=== PATIENT | male | born 1940 | race Caucasian/White ===

== ENCOUNTER → 2016-05-12 | Outpatient (CLI) | payer MEDICARE ==
[~2016-05-12] MED LIST: ASPI81TA28 PO; CHOL1000 PO; CHOL100010 PO; CLOP1TAB15 PO; COEN90TA PO; FURO-85 PO; LISI10TA PO; METO25TA56 PO; MULT-506 PO; PRENTAB26 PO; PRLSR20 PO; ROSU40TA PO; VANC5CAP PO
[2016-05-12 12:45] LABS: HEMATOCRIT 45.1 % (42-52); MEAN CELL VOLUME 95.1 fL (80-100); MEAN CORPUSCULAR HEMOGLOBIN 31.9 pg (25-34); MEAN CORPUSCULAR HGB CONC 33.5 g/dl (32-36); MEAN PLATELET VOLUME 9.6 fL (7.4-10.4); PLATELET COUNT 206 K/uL (130-400); RED BLOOD COUNT 4.74 M/uL (4.7-6.1); WHITE BLOOD COUNT 7.83 K/uL (4.8-10.8)
[2016-05-12 12:59] LABS: BLOOD UREA NITROGEN 36 mg/dl (7-18); BUN/CREATININE RATIO 13.3 (10-20); CALCIUM 9.8 mg/dl (8.5-10.1); CARBON DIOXIDE 31 mmol/L (21-32); CHLORIDE 105 mmol/L (98-107); GLUCOSE 97 mg/dl (70-99); PHOSPHORUS 3.2 mg/dl (2.5-4.9); POTASSIUM 5.4 mmol/L (3.5-5.1); SODIUM 141 mmol/L (136-145)
[2016-05-12 13:10] LABS: URINE PROTIEN/CREAT RATIO 5.5 (0-0.2); URINE TOTAL PROTEIN 207.4 mg/dl (0-11.9)
[2016-05-12 13:31] LABS: URINE APPEARANCE CLEAR (CLEAR); URINE BILIRUBIN NEG (NEG); URINE COLOR YELLOW; URINE EPITHELIAL CELL AUTO 0-5 /lpf (0-5); URINE NITRITE NEG (NEG); URINE PH 7.5 (4.5-7.5); URINE SPECIFIC GRAVITY 1.011 (1.000-1.030); UROBILINOGEN NEG (NEG)
[2016-05-12 13:45] LABS: MANUAL MICROSCOPIC REQUIRED? NO; REVIEW REQ? NO; SULFASALICYLIC ACID POS (NEG)
== END | disposition home or self-care (01) ==
LOC: C.LABBFT 10:56
PROVIDERS: ATTEND Internal Medicine Nephrology
DX: I12.9 Hypertensive chronic kidney disease with stage 1 through stage 4 chronic kidney disease, or unspecified chronic kidney disease (principal); N18.3 Chronic kidney disease, stage 3 (moderate); N25.81 Secondary hyperparathyroidism of renal origin; R80.9 Proteinuria, unspecified; A04.7 Enterocolitis due to Clostridium difficile

== ENCOUNTER → 2016-07-15 | Outpatient (CLI) | payer MEDICARE ==
[~2016-07-15] MED LIST changes: +CMD2 PO; +CRDCD180 PO; +LCTX PO; +LPR25 PO; +OMEP20CA9 PO; +PLV75 PO; +ROSU40TA18 PO
[2016-07-15 17:34] LABS: HEMATOCRIT 45.9 % (42-52); MEAN CELL VOLUME 94.6 fL (80-100); MEAN CORPUSCULAR HEMOGLOBIN 31.1 pg (25-34); MEAN CORPUSCULAR HGB CONC 32.9 g/dl (32-36); MEAN PLATELET VOLUME 9.6 fL (7.4-10.4); PLATELET COUNT 198 K/uL (130-400); RED BLOOD COUNT 4.85 M/uL (4.7-6.1); WHITE BLOOD COUNT 6.91 K/uL (4.8-10.8)
[2016-07-15 17:46] LABS: URINE APPEARANCE CLEAR (CLEAR); URINE BILIRUBIN NEG (NEG); URINE COLOR YELLOW; URINE NITRITE NEG (NEG); URINE PH 6.5 (4.5-7.5); URINE SPECIFIC GRAVITY 1.014 (1.000-1.030); UROBILINOGEN NEG (NEG)
[2016-07-15 18:00] LABS: ALT/SGPT 24 U/L (12-78); BLOOD UREA NITROGEN 31 mg/dl (7-18); CALCIUM 9.2 mg/dl (8.5-10.1); CARBON DIOXIDE 32 mmol/L (21-32); CHLORIDE 107 mmol/L (98-107); GLUCOSE 115 mg/dl (70-99); POTASSIUM 3.9 mmol/L (3.5-5.1); SODIUM 143 mmol/L (136-145)
[2016-07-15 18:02] LABS: URINE PROTIEN/CREAT RATIO 4.1 (0-0.2)
[2016-07-15 18:03] LABS: ALB/GLOB RATIO 0.8 (0.9-2); ALKALINE PHOSPHATASE 62 U/L (45-117); AST/SGOT 19 U/L (15-37)
[2016-07-15 18:07] LABS: MANUAL MICROSCOPIC REQUIRED? NO; REVIEW REQ? NO
== END | disposition home or self-care (01) ==
LOC: C.LABBFT 11:29
PROVIDERS: ATTEND Internal Medicine Nephrology
DX: I10 Essential (primary) hypertension (principal); N25.81 Secondary hyperparathyroidism of renal origin; R80.9 Proteinuria, unspecified; N18.4 Chronic kidney disease, stage 4 (severe)

== ENCOUNTER → 2016-09-17 | Outpatient (CLI) | payer MEDICARE ==
[~2016-09-17] MED LIST changes: -CHOL100010 PO; -LISI10TA PO; -PRENTAB26 PO
[2016-09-17 17:45] LABS: HEMATOCRIT 43.4 % (42-52); MEAN CELL VOLUME 97.5 fL (80-100); MEAN CORPUSCULAR HEMOGLOBIN 31.7 pg (25-34); MEAN CORPUSCULAR HGB CONC 32.5 g/dl (32-36); MEAN PLATELET VOLUME 9.4 fL (7.4-10.4); PLATELET COUNT 218 K/uL (130-400); RED BLOOD COUNT 4.45 M/uL (4.7-6.1); WHITE BLOOD COUNT 7.88 K/uL (4.8-10.8)
[2016-09-17 18:11] LABS: ALT/SGPT 21 U/L (12-78); AST/SGOT 16 U/L (15-37); BLOOD UREA NITROGEN 33 mg/dl (7-18); BUN/CREATININE RATIO 12.3 (10-20); CALCIUM 9.5 mg/dl (8.5-10.1); CARBON DIOXIDE 29 mmol/L (21-32); CHLORIDE 107 mmol/L (98-107); GLUCOSE 102 mg/dl (70-99); POTASSIUM 4.1 mmol/L (3.5-5.1); SODIUM 142 mmol/L (136-145)
[2016-09-17 18:13] LABS: ALB/GLOB RATIO 0.9 (0.9-2); ALKALINE PHOSPHATASE 59 U/L (45-117)
== END | disposition home or self-care (01) ==
LOC: C.LABBFT 10:32
PROVIDERS: ATTEND Internal Medicine Nephrology
DX: R31.29 Other microscopic hematuria (principal); R80.9 Proteinuria, unspecified; N25.81 Secondary hyperparathyroidism of renal origin; I12.9 Hypertensive chronic kidney disease with stage 1 through stage 4 chronic kidney disease, or unspecified chronic kidney disease; N18.4 Chronic kidney disease, stage 4 (severe)

== ENCOUNTER → 2016-11-23 | Outpatient (CLI) | payer MEDICARE ==
[~2016-11-23] MED LIST changes: -COEN90TA PO
--- NOTE | 2016-11-23 16:15 | DIAGNOSTIC IMAGING REPORT ---
R WRIST MIN 3 VIEWS ROUTINE CLINICAL HISTORY: Right wrist pain. Edema. COMPARISON: None FINDINGS: Extensive vascular calcification is noted. No carpal bone fracture is identified. There is a lucency within the radial styloid. This could reflect a nondisplaced fracture or vascular channel. No additional fractures are identified. There is mild to moderate osteoarthritis of the triscaphe joint and right first carpometacarpal joint. IMPRESSION: 1. Lucency within the radial styloid which could reflect an acute nondisplaced fracture or vascular channel. This could be correlated with point tenderness and trauma history. 2. Extensive vascular calcification. 3. Mild to moderate osteoarthritis of the triscaphe and right first carpometacarpal joints. Electronically signed by: Jose Shrestha M.D. 11/23/2016 4:14 PM Dictated Date/Time: 11/23/2016 4:11 PM
--- NOTE | 2016-11-23 17:14 | DIAGNOSTIC IMAGING REPORT ---
DOPPLER ULTRASOUND RIGHT UPPER EXTREMITY DIALYSIS ACCESS CLINICAL HISTORY: Fall. COMPARISON STUDY: No priors. FINDINGS: Real-time, grayscale, color Doppler sonography of the right forearm is performed to assess a hemodialysis fistula. The fistula is present, likely from the cephalic vein to the ulnar artery. The fistula is patent. Velocities within the fistula measure up to 310 cm near the arterial anastomosis. There is an indeterminant hypoechoic region seen near the arterial anastomosis which measures 4.5 x 1.0 x 2.4 cm. IMPRESSION: 1. A dialysis fistula is present in the right forearm as above. The fistula is patent. 2. There is indeterminant hypoechoic region seen near the arterial anastomosis as above. This may represent a small hematoma, edema, or less likely a collection. Clinical correlation will be essential. Dictated: 11/23/2016 4:43 PM Transcribed: 11/23/2016 5:14 PM Maru Electronically signed by: Ronen Teixeira M.D. 11/23/2016 5:27 PM Dictated Date/Time: 11/23/2016 4:43 PM
== END | disposition home or self-care (01) ==
LOC: C.ULTR 15:28
PROVIDERS: ATTEND Physician Assistant
DX: M79.641 Pain in right hand (principal); M25.531 Pain in right wrist; R60.0 Localized edema; Z91.81 History of falling; M19.031 Primary osteoarthritis, right wrist; M25.831 Other specified joint disorders, right wrist

== ENCOUNTER 2016-11-26 20:18 | Inpatient (IN) | payer MEDICARE, OTHER ==
[~2016-11-26] VITALS: Ht 180.3 cm; Wt 107.0 kg
[~2016-11-26 20:18] MED LIST changes: -CMD2 PO; -CRDCD180 PO; -LCTX PO; -LPR25 PO; -OMEP20CA9 PO; -PLV75 PO; -ROSU40TA18 PO
[2016-11-26] MEDS ORDERED: SODIUM CHLORIDE 0.9% 1000ML 1,000 ML IV SCH (20:21)
--- NOTE | 2016-11-26 20:37 | DIAGNOSTIC IMAGING REPORT ---
HEAD WITHOUT CONTRAST (CT) CLINICAL HISTORY: 76 years-old Male presenting with Stroke. TECHNIQUE: Multidetector CT imaging of the head was performed without the use of intravenous contrast. IV contrast: None. A dose lowering technique was used consistent with the principles of ALARA (as low as reasonably achievable). COMPARISON: None. CT DOSE (mGy.cm): The estimated cumulative dose is 537.48 mGy.cm. FINDINGS: Satellite Instruction Facilitator topogram: Unremarkable. Proportional ventricular and sulcal prominence, likely age-related parenchymal volume loss. Evidence of chronic infarcts in the right cerebellar hemisphere, paramedian left occipital lobe, and more focally in a limited portion of the right occipital lobe. Old lacunar infarct in the left basal ganglia. No mass effect or midline shift. No hemorrhage or acute territorial infarct. No extra-axial fluid collection. Paranasal sinuses and mastoid air cells clear. Calvarium intact. IMPRESSION: 1. No acute intracranial pathology. 2. 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 Electronically signed by: Luis Lockhart M.D. 11/26/2016 8:35 PM Dictated Date/Time: 11/26/2016 8:32 PM
[2016-11-26] MEDS ORDERED: SET 2260-0500 IV ONE (20:45)
[2016-11-26] MEDS ORDERED: LABETALOL HCL IV 5 MG/ML 20ML IV ONE ×2 (20:45→21:15)
[2016-11-26] MEDS ORDERED: ALTEPLASE, RECOMBINANT INJ 9 MG in SYRINGE 0 ML IV ONE (20:45)
[2016-11-26 20:51] LABS: BASO % 0.3 %; BASO ABS # 0.02 K/uL (0-0.2); COMPLETE YES; EOS % 0.5 %; HEMATOCRIT 43.4 % (42-52); IG% 0.3 %; LYMPH % 23.9 %; LYMPH ABS # 1.83 K/uL (1.2-3.4); MEAN CELL VOLUME 93.9 fL (80-100); MEAN CORPUSCULAR HEMOGLOBIN 32.5 pg (25-34); MEAN CORPUSCULAR HGB CONC 34.6 g/dl (32-36); MEAN PLATELET VOLUME 9.3 fL (7.4-10.4); PLATELET COUNT 210 K/uL (130-400); RED BLOOD COUNT 4.62 M/uL (4.7-6.1); WHITE BLOOD COUNT 7.65 K/uL (4.8-10.8)
[2016-11-26 20:55] LABS: PARTIAL THROMBOPLASTIN RATIO 1.1; PROTHROMBIN TIME (PATIENT) 11.2 SECONDS (9.0-12.0)
[2016-11-26] MEDS ORDERED: ALTEPLASE, RECOMBINANT INJ 81 MG in EMPTY BAG 0 ML IV ONE (21:00)
[2016-11-26 21:04] LABS: ISTAT CREATININE 4.2 mg/dl (0.6-1.3); ISTAT IONIZED CALCIUM 1.12 mmol/l (1.12-1.32)
[2016-11-26 21:10] LABS: BUN/CREATININE RATIO 12.5 (10-20); CALCIUM 9.2 mg/dl (8.5-10.1); CREATININE 4.4 mg/dl (0.60-1.40); POTASSIUM 3.4 mmol/L (3.5-5.1)
--- NOTE | 2016-11-26 21:13 | DIAGNOSTIC IMAGING REPORT ---
CHEST ONE VIEW PORTABLE CLINICAL HISTORY: 76 years-old Male presenting with Stroke. TECHNIQUE: Portable upright AP view of the chest was obtained. COMPARISON: 05/04/2015. FINDINGS: Interval removal of the right subclavian central line. Median sternotomy wires intact. Cardiac silhouette enlarged, unchanged. Atherosclerosis of aortic arch. Mild diffuse added density in the left lung is likely due to underpenetration and overlying soft tissue. No convincing evidence of a focal infiltrate. No large effusion or pneumothorax. Osseous structures normal. Upper abdomen normal. IMPRESSION: 1. Cardiomegaly without evidence of acute cardiopulmonary disease. Electronically signed by: Luis Lockhart M.D. 11/26/2016 9:11 PM Dictated Date/Time: 11/26/2016 9:10 PM
[2016-11-26] MEDS ORDERED: LPR25 PO (21:31)
[2016-11-26] MEDS ORDERED: ROSU40TA18 PO (21:33)
[2016-11-26] MEDS ORDERED: OMEP20CA9 PO (21:33)
[2016-11-26] MEDS ORDERED: VANC5CAP PO (21:35)
[2016-11-26] MEDS ORDERED: PLV75 PO (21:35)
[2016-11-26] MEDS ORDERED: LCTX PO (21:37)
--- NOTE | 2016-11-26 22:12 | EMERGENCY ROOM VISIT NOTE ---
History Report prepared by Raeibcecy: Nelida Landry Under the Supervision of: Dr. Mateo Styles M.D. First contact with patient: 20:19 Chief Complaint: STROKE SYMPTOMS Stated Complaint: stroke alert History of Present Illness The patient is a 76 year old male who presents to the Emergency Room with complaints of possible stroke symptoms that started approximately 1 hour prior to arrival. He was brought to the ED via EMS. EMS reports his last known well time is 1929 this evening. His states they were eating and dinner and watching TV when he suddenly fell. He told her his legs gave out and sat down in a chair. He then "just stared at her", so his asked him if he knew who she was, and he was unable to answer her. She does not believe he hit his head, but he did display right sided weakness as well as the aphasia. EMS reports she asked the patient to squeeze her hand in the field if he was able too, and he did, but he could not speak to her. She reports his aphasia seems to "come and go". The patient does take Aspirin and Plavix for a history of atrial fibrillation. He has a prior history of TIA's. Patient denies headache, chest pain, difficulty breathing, nausea, vomiting, abdominal pain, fevers or chills. Source of History: spouse/significant other (), EMS History Limited By: aphasia Onset: 1929 today Position: other (global) Timing: intermittent Associated Symptoms: + weakness (right sided weakness), No LOC Review of Systems See HPI for pertinent positives and negatives. A total of ten systems were reviewed and were otherwise negative. Past Medical & Surgical Medical Problems: (1) Atrial fibrillation (2) CAD (coronary artery disease) (3) Chronic diastolic (congestive) heart failure (4) CKD (chronic kidney disease), stage III (5) Dyslipidemia (6) GERD (gastroesophageal reflux disease) (7) HTN (hypertension) (8) Osteoarthritis (9) PVD (peripheral vascular disease) (10) TIA (transient ischemic attack) Surgical Problems: (1) H/O vascular surgery (2) History of CEA (carotid endarterectomy) (3) S/P ablation of atrial fibrillation (4) S/P CABG x 3 Family History Diabetes mellitus FH: heart disease Social History Smoking Status: Never Smoker Drug Use: none Marital Status: Housing Status: lives with family Occupation Status: retired Current/Historical Medications Scheduled Aspirin (Aspirin Ec), 161 MG PO HS Cholecalciferol (Vitamin D3), 1,000 INTER.UNIT PO QAM Clopidogrel Bisulfate (Clopidogrel), 75 MG PO QAM Furosemide (Lasix), 20 MG PO QAM Lactobacillus Acidophilus (Lactinex), 1 TAB PO TIDM Metoprolol Tartrate (Lopressor), 25 MG PO BID Multivitamin (Multivitamin), 1 TAB PO QAM Omeprazole (Prilosec), 20 MG PO QAM Rosuvastatin Calcium (Rosuvastatin Calcium), 40 MG PO QPM Vancomycin Hcl (Vancomycin), 125 MG PO QAM Allergies Coded Allergies: No Known Allergies (Verified , 09/20/16) Physical Exam Vital Signs Date Time Temp Pulse Resp B/P (MAP) Pulse Ox O2 Delivery O2 Flow Rate FiO2 11/26/16 21:31 85 11/26/16 21:06 92 19 162/111 97 11/26/16 21:01 88 21 197/99 98 11/26/16 21:00 181/133 11/26/16 20:58 93 20 98 11/26/16 20:56 191/81 11/26/16 20:35 93 Room Air 11/26/16 20:29 36.9 108 16 184/96 93 Room Air Physical Exam GENERAL: Awake, alert, well-appearing, in no distress HENT: Normocephalic, atraumatic. Oropharynx unremarkable. EYES: Normal conjunctiva. Sclera non-icteric. NECK: Supple. No nuchal rigidity. FROM. No JVD. RESPIRATORY: Clear to auscultation. CARDIAC: Regular rate, normal rhythm. Extremities warm and well perfused. Pulses equal. ABDOMEN: Soft, non-distended. No tenderness to palpation. No rebound or guarding. No masses. RECTAL: Deferred. MUSCULOSKELETAL: Chest examination reveals no tenderness. The back is symmetrical on inspection without obvious abnormality. There is no CVA tenderness to palpation. No joint edema. LOWER EXTREMITIES: Calves are equal size bilaterally and non-tender. No edema. No discoloration. NEURO: Weakness and drift in the right arm, 4/5 strength in right arm. 3/5 strength in right leg. 5/5 strength in left arm and left leg. Normal sensorium. No sensory deficits. SKIN: No rash or jaundice noted. Medical Decision & Procedures ER Provider Diagnostic Interpretation: Radiology results as stated below per my review and radiologist interpretation: HEAD WITHOUT CONTRAST (CT) CLINICAL HISTORY: 76 years-old Male presenting with Stroke. TECHNIQUE: Multidetector CT imaging of the head was performed without the use of intravenous contrast. IV contrast: None. A dose lowering technique was used consistent with the principles of ALARA (as low as reasonably achievable). COMPARISON: None. CT DOSE (mGy.cm): The estimated cumulative dose is 537.48 mGy.cm. FINDINGS: Field Marketing Specialist topogram: Unremarkable. Proportional ventricular and sulcal prominence, likely age-related parenchymal volume loss. Evidence of chronic infarcts in the right cerebellar hemisphere, paramedian left occipital lobe, and more focally in a limited portion of the right occipital lobe. Old lacunar infarct in the left basal ganglia. No mass effect or midline shift. No hemorrhage or acute territorial infarct. No extra-axial fluid collection. Paranasal sinuses and mastoid air cells clear. Calvarium intact. IMPRESSION: 1. No acute intracranial pathology. 2. 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 Electronically signed by: Luis Lockhart M.D. 11/26/2016 8:35 PM CHEST ONE VIEW PORTABLE CLINICAL HISTORY: 76 years-old Male presenting with Stroke. TECHNIQUE: Portable upright AP view of the chest was obtained. COMPARISON: 05/04/2015. FINDINGS: Interval removal of the right subclavian central line. Median sternotomy wires intact. Cardiac silhouette enlarged, unchanged. Atherosclerosis of aortic arch. Mild diffuse added density in the left lung is likely due to underpenetration and overlying soft tissue. No convincing evidence of a focal infiltrate. No large effusion or pneumothorax. Osseous structures normal. Upper abdomen normal. IMPRESSION: 1. Cardiomegaly without evidence of acute cardiopulmonary disease. Electronically signed by: Luis Lockhart M.D. 11/26/2016 9:11 PM Laboratory Results 11/26/16 20:00 Red Blood Count 4.62, Mean Corpuscular Volume 93.9, Mean Corpuscular Hemoglobin 32.5, Mean Corpuscular Hemoglobin Concent 34.6, Mean Platelet Volume 9.3, Neutrophils (%) (Auto) 63.0, Lymphocytes (%) (Auto) 23.9, Monocytes (%) (Auto) 12.0, Eosinophils (%) (Auto) 0.5, Basophils (%) (Auto) 0.3, Neutrophils # (Auto ) 4.82, Lymphocytes # (Auto) 1.83, Monocytes # (Auto) 0.92, Eosinophils # (Auto ) 0.04, Basophils # (Auto) 0.02 11/26/16 20:00 Test 11/26/16 20:00 11/26/16 20:21 11/26/16 20:51 White Blood Count 7.65 K/uL (4.8-10.8) Red Blood Count 4.62 M/uL (4.7-6.1) Hemoglobin 15.0 g/dL (14.0-18.0) Hematocrit 43.4 % (42-52) Mean Corpuscular Volume 93.9 fL (80-100) Mean Corpuscular Hemoglobin 32.5 pg (25-34) Mean Corpuscular Hemoglobin Concent 34.6 g/dl (32-36) Platelet Count 210 K/uL (130-400) Mean Platelet Volume 9.3 fL (7.4-10.4) Neutrophils (%) (Auto) 63.0 % Lymphocytes (%) (Auto) 23.9 % Monocytes (%) (Auto) 12.0 % Eosinophils (%) (Auto) 0.5 % Basophils (%) (Auto) 0.3 % Neutrophils # (Auto) 4.82 K/uL (1.4-6.5) Lymphocytes # (Auto) 1.83 K/uL (1.2-3.4) Monocytes # (Auto) 0.92 K/uL (0.11-0.59) Eosinophils # (Auto) 0.04 K/uL (0-0.5) Basophils # (Auto) 0.02 K/uL (0-0.2) RDW Standard Deviation 47.2 fL (36.4-46.3) RDW Coefficient of Variation 13.7 % (11.5-14.5) Immature Granulocyte % (Auto) 0.3 % Immature Granulocyte # (Auto) 0.02 K/uL (0.00-0.02) Prothrombin Time 11.2 SECONDS (9.0-12.0) Prothromb Time International Ratio 1.0 (0.9-1.1) Activated Partial Thromboplast Time 29.1 SECONDS (21.0-31.0) Partial Thromboplastin Ratio 1.1 Est Creatinine Clear Calc Drug Dose 18.8 ml/min Estimated GFR () 14.1 Estimated GFR (Non- 12.1 BUN/Creatinine Ratio 12.5 (10-20) Calcium Level 9.2 mg/dl (8.5-10.1) Total Creatine Kinase 97 U/L (39-308) Creatine Kinase MB 3.9 ng/ml (0.5-3.6) Creatine Kinase MB Ratio 4.0 (0-3.0) Troponin I 2.240 ng/ml (0-0.045) Bedside Hemoglobin 15.0 g/dl (14.0-18.0) Bedside Hematocrit 44 % (42-52) Bedside Sodium 142 mEq/L (135-144) Bedside Potassium 3.3 mEq/L (3.3-5.0) Bedside Chloride 104 mEq/L (101-112) Bedside Total CO2 28 mEq/l (24-31) Anion Gap 15.0 mmol/L (16-25) Bedside Blood Urea Nitrogen 54 mg/dl (7-18) Bedside Creatinine 4.2 mg/dl (0.6-1.3) Bedside Glucose (other) 99 mg/dl (70-99) Bedside Ionized Calcium (Delfina) 1.12 mmol/l (1.12-1.32) Laboratory results reviewed by me Medications Administered Medications (Trade) Dose Ordered Sig/Maria Guadalupe Route Start Time Stop Time Status Last Admin Dose Admin Sodium Chloride 1,000 ml @ 50 mls/hr Q20H IV 11/26/16 20:21 12/26/16 20:20 11/26/16 20:21 50 MLS/HR Labetalol HCl (Normodyne IV) 5 mg STK-MED ONCE IV 11/26/16 20:45 11/26/16 20:46 DC 11/26/16 21:07 10 MG ECG Indication: weakness Rate (beats per minute): 94 Rhythm: atrial fibrillation Findings: no acute ischemic change, no ectopy ED Course 2020: NSS 1000 ml @ 999 mls/hr IV. 2028: The patient was evaluated in room B1. A complete history and physical exam was performed. 2044: Labetalol 5 mg IV, Alteplase Recombinant 9 mg/Syringe 9 ml @ 9 mls/min IV. 2046: I discussed the patients case with Dr. Randall, [facility]. We have Labetalol at the bedside but his BP is going down. He has no contraindications to TPA. 2058: I reevaluated the patient. He is speaking with Dr. Randall via Tele Stroke. 2099: Alteplase Recombinant 81 mg/Empty Bag 81 ml @ 81 mls/hr IV. 2104: Nursing informed me they are giving the patient Labetalol. 2109: I reevaluated the patient. His symptoms have resolved. Dr. Randall recommends we hold the TPA and it keep it at the bedside. If his symptoms return in under 2 hours, call him back. 2120: [facility] the [facility] The patient will be further evaluated. Medical Decision Triage Nursing notes reviewed. The patient's presentation and history were concerning for strokelike symptoms. A stroke alert was initiated prehospital after active medical command on the patient. The patient arrived to the emergency department. He had improvement of his aphasia in the ambulance but then his expressive aphasia returned. He had right-sided weakness. He was taken emergently to CT imaging. No acute intercranial findings were noted. I notified pharmacy to mix TPA as he is within the therapeutic window. Contraindications were reviewed and the patient has none except his blood pressure is over the upper limits. IV labetalol was ordered. I did consult with [facility]-stroke. The patient was evaluated. During the tele-stroke evaluation his symptoms resolved. Recommendations were given for monitoring blood pressure, keeping the TPA at the bedside for the next 2 hours, and if any symptoms occur after the 2 hour basia to contact tele- stroke again. The patient was reassessed and was doing well. Symptoms were still resolved. [facility] The patient was evaluated in the Emergency Room for further management. The patient 's ECG showed A. fib. No ischemia. His CBC and chemistry panel was unremarkable. INR was normal. The patient's creatinine was elevated. He has a history of renal insufficiency. The patient's troponin was significantly elevated, again he denied any chest pain or chest symptoms. Medication Reconcilliation Current Medication List: was personally reviewed by me Blood Pressure Screening Patient's blood pressure: Elevated blood pressure The patients elevated blood pressure will be further evaluated by the hospital medicine team. Consults Time Called: 2035 Consulting Physician: Dr. Randall, [facility] Returned Call: 2046 I discussed the patients case with Dr. Randall, [facility]. We have Labetalol at the bedside but his BP is going down. He has no contraindications to TPA. Additional Consults: Time Called: 2114 Consulted Physician: Francisca Liriano Hospitalist Returned Call: 2120 Additional Comments: I discussed the patients case with Francisca Liriano Hospitalist. The patient will be further evaluated. Impression Primary Impression: CVA (cerebral vascular accident) Additional Impression: Elevated troponin Scribe Attestation The scribe's documentation has been prepared under my direction and personally reviewed by me in its entirety. I confirm that the note above accurately reflects all work, treatment, procedures, and medical decision making performed by me. Departure Information Dispostion Being Evaluated By Hospitalist Basia Case M.D. (PCP) Patient Instructions My [facility] Problem Qualifiers
[2016-11-26] MEDS ORDERED: NITROGLYCERIN 0.4 MG SL PER TAB CHARGE SL PRN (22:45)
[2016-11-26] MEDS ORDERED: POLYETHYLENE (MIRALAX) 17 GM PACK PO PRN (22:45)
[2016-11-26] MEDS ORDERED: PHARMACIST DISCHARGE MED REC CONSULT PRN (22:45)
[2016-11-26] MEDS ORDERED: ONDANSETRON INJ 2 MG/ML 2 ML VIAL IV PRN (22:45)
[2016-11-26] MEDS ORDERED: MoRPHine SULFATE 2 MG/ML CARP IV PRN (22:45)
[2016-11-26] MEDS ORDERED: ACETAMINOPHEN 325 MG TAB PO PRN (22:45)
[2016-11-26] MEDS ORDERED: ASPIRIN 325 MG ECTAB PO STA (22:59)
[2016-11-26] MEDS ORDERED: ROSUVASTATIN CALCIUM 20 MG TAB PO SCH (23:00)
[2016-11-26] MEDS ORDERED: METOPROLOL TARTRATE 25 MG TAB PO SCH (23:00)
--- NOTE | 2016-11-26 23:00 | History and Physical ---
History & Physical Date & Time of Service: Nov 26, 2016 at 22:53 Chief Complaint: stroke alert Primary Care Physician: Lamin Malcolm M.D. History of Present Illness Source: patient, family, clinic records, hospital records 76 yo nonsmoker with CAD and PVD s/p CABG on ASA and Plavix who presents with acute stroke symptoms that began at 1930 this evening. Specifically, he reports feeling R leg and the R arm numbness and weakness which caused him to collapse into a chair. He later developed some expressive aphasia. He denies any other symptoms of chest pain, shortness of breath, fevers, chills, dysphagia , headaches, visual changes, nausea, vomiting, diarrhea. 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 He has otherwise been feeling well. He has a h/o smoking for 50 years but quit early last year prior to undergoing multiple peripheral vascular surgeries. He also has chronic, recurrent C-diff and is under the care of an ID specialist and on chronic suppressive vancomycin therapy. He has a h/o MRSA. He has some chronic numbness in his feet from his h/o leg surgeries and PAD. He is s/p bilateral CEA in the past. He currently takes ASA 161 daily, Plavix 75 daily and Crestor 40 daily and is compliant with these. In the ER a stroke alert was called and TPA was mixed but prior to giving it, his symptoms completely resolved. He also was found to have an elevated trop of 2 without acute EKG changes. Past Medical/Surgical History Medical Problems: (1) Atrial fibrillation Status: Chronic (2) CAD (coronary artery disease) Status: Chronic (3) Chronic diastolic (congestive) heart failure Status: Chronic (4) CKD (chronic kidney disease), stage III Status: Chronic (5) Dyslipidemia Status: Chronic (6) GERD (gastroesophageal reflux disease) Status: Chronic (7) HTN (hypertension) Status: Chronic (8) Osteoarthritis Status: Chronic (9) PVD (peripheral vascular disease) Status: Chronic (10) TIA (transient ischemic attack) Status: Chronic Surgical Problems: (1) H/O vascular surgery Permanent Comment: 2000 - right femoral endarterectomy, left femoral stent 04/25/15 - left common femoral endarterectomy, left common deep femoral endarterectomy, left common and external iliac stent and angioplasty, left femoral and popliteal stent and angioplasty Status: Chronic (2) History of CEA (carotid endarterectomy) Permanent Comment: left - 2007, right - 2010 Status: Chronic (3) S/P ablation of atrial fibrillation Status: Chronic (4) S/P CABG x 3 Status: Chronic Family History Diabetes mellitus FH: heart disease Social History Smoking Status: Never Smoker Smokeless Tobacco Use: No Alcohol Use: socially Drug Use: none Marital Status: Housing status: lives with significant other Occupational Status: retired Immunizations History of Influenza Vaccine: Yes History of Tetanus Vaccine?: Yes History of Pneumococcal: Yes History of Hepatitis B Vaccine: No Multi-Drug Resistant Organisms History of MDRO: Yes Type of MDRO: MRSA, other (chronic, recurrent c-diff) Allergies Coded Allergies: No Known Allergies (Verified , 09/20/16) Home Medications Scheduled Aspirin (Aspirin Ec), 161 MG PO HS Cholecalciferol (Vitamin D3), 1,000 INTER.UNIT PO QAM Clopidogrel Bisulfate (Clopidogrel), 75 MG PO QAM Furosemide (Lasix), 20 MG PO QAM Lactobacillus Acidophilus (Lactinex), 1 TAB PO TIDM Metoprolol Tartrate (Lopressor), 25 MG PO BID Multivitamin (Multivitamin), 1 TAB PO QAM Omeprazole (Prilosec), 20 MG PO QAM Rosuvastatin Calcium (Rosuvastatin Calcium), 40 MG PO QPM Vancomycin Hcl (Vancomycin), 125 MG PO QAM Review of Systems At least ten systems reviewed and negative except as indicated in HPI above. Physical Exam Vital Signs Date Time Temp Pulse Resp B/P (MAP) Pulse Ox O2 Delivery O2 Flow Rate FiO2 11/26/16 22:11 75 20 139/88 99 11/26/16 22:06 76 14 170/61 98 11/26/16 22:01 80 19 156/72 99 11/26/16 21:56 78 20 169/61 97 11/26/16 21:51 81 19 170/92 97 11/26/16 21:46 80 22 170/75 98 11/26/16 21:41 84 13 149/81 99 11/26/16 21:36 82 17 184/56 98 11/26/16 21:31 81 18 176/71 98 11/26/16 21:31 85 10/6/17 21:26 85 23 146/90 96 11/26/16 21:21 82 19 176/104 98 11/26/16 21:16 78 21 172/77 96 11/26/16 21:11 79 22 172/89 97 11/26/16 21:06 92 19 162/111 97 11/26/16 21:01 88 21 197/99 98 11/26/16 21:00 181/133 11/26/16 20:58 93 20 98 11/26/16 20:56 191/81 11/26/16 20:35 93 Room Air 11/26/16 20:29 36.9 108 16 184/96 93 Room Air General Appearance: WD/WN, no apparent distress Head: normocephalic, atraumatic Eyes: normal inspection, PERRL, EOMI, sclerae normal ENT: normal ENT inspection, hearing grossly normal, pharynx normal Neck: supple, no adenopathy, no JVD, trachea midline Respiratory/Chest: chest non-tender, lungs clear, normal breath sounds, no respiratory distress, no accessory muscle use Cardiovascular: no edema, no gallop, no JVD, no murmur, normal peripheral pulses, + irregularly irregular Abdomen/GI: normal bowel sounds, non tender, soft Back: normal inspection Extremities/Musculoskelatal: normal inspection, normal capillary refill, + pertinent finding (slight chronic swelling of L foot/ankle-no edema.) 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, no motor/sensory deficits (except chronic numbness in feet bilaterally and to just prox of L ankle ), alert, normal mood/affect, normal reflexes, oriented x 3, + pertinent finding (neg Romberg, normal coordination testing) Skin: normal color, warm/dry, no rash Diagnostics Laboratory Results 11/27/16 03:50 Red Blood Count 4.34, Mean Corpuscular Volume 93.3, Mean Corpuscular Hemoglobin 32.3, Mean Corpuscular Hemoglobin Concent 34.6, Mean Platelet Volume 9.2, Neutrophils (%) (Auto) 69.1, Lymphocytes (%) (Auto) 21.2, Monocytes (%) (Auto) 8.5, Eosinophils (%) (Auto) 1.0, Basophils (%) (Auto) 0.1, Neutrophils # (Auto) 5.39, Lymphocytes # (Auto) 1.65, Monocytes # (Auto) 0.66, Eosinophils # (Auto) 0.08, Basophils # (Auto) 0.01 11/27/16 03:50 Test 11/26/16 20:00 11/26/16 20:43 11/26/16 20:51 11/27/16 03:40 Prothrombin Time 11.2 SECONDS (9.0-12.0) Prothromb Time International Ratio 1.0 (0.9-1.1) Activated Partial Thromboplast Time 29.1 SECONDS (21.0-31.0) Partial Thromboplastin Ratio 1.1 Bedside Glucose 102 mg/dl (70-99) Bedside Hemoglobin 15.0 g/dl (14.0-18.0) Bedside Hematocrit 44 % (42-52) Bedside Sodium 142 mEq/L (135-144) Bedside Potassium 3.3 mEq/L (3.3-5.0) Bedside Chloride 104 mEq/L (101-112) Bedside Total CO2 28 mEq/l (24-31) Bedside Blood Urea Nitrogen 54 mg/dl (7-18) Bedside Creatinine 4.2 mg/dl (0.6-1.3) Bedside Glucose (other) 99 mg/dl (70-99) Bedside Ionized Calcium (Delfina) 1.12 mmol/l (1.12-1.32) Urine Color YELLOW Urine Appearance CLEAR (CLEAR) Urine pH 6.0 (4.5-7.5) Urine Specific [place] 1.013 (1.000-1.030) Urine Protein 2+ (NEG) Urine Glucose (UA) NEG (NEG) Urine Ketones NEG (NEG) Urine Occult Blood 1+ (NEG) Urine Nitrite NEG (NEG) Urine Bilirubin NEG (NEG) Urine Urobilinogen NEG (NEG) Urine Leukocyte Esterase NEG (NEG) Urine WBC (Auto) 1-5 /hpf (0-5) Urine RBC (Auto) 0-4 /hpf (0-4) Urine Hyaline Casts (Auto) 1-5 /lpf (0-5) Urine Epithelial Cells (Auto) 10-20 /lpf (0-5) Urine Bacteria (Auto) NEG (NEG) Test 11/27/16 03:50 White Blood Count 7.80 K/uL (4.8-10.8) Red Blood Count 4.34 M/uL (4.7-6.1) Hemoglobin 14.0 g/dL (14.0-18.0) Hematocrit 40.5 % (42-52) Mean Corpuscular Volume 93.3 fL (80-100) Mean Corpuscular Hemoglobin 32.3 pg (25-34) Mean Corpuscular Hemoglobin Concent 34.6 g/dl (32-36) Platelet Count 185 K/uL (130-400) Mean Platelet Volume 9.2 fL (7.4-10.4) Neutrophils (%) (Auto) 69.1 % Lymphocytes (%) (Auto) 21.2 % Monocytes (%) (Auto) 8.5 % Eosinophils (%) (Auto) 1.0 % Basophils (%) (Auto) 0.1 % Neutrophils # (Auto) 5.39 K/uL (1.4-6.5) Lymphocytes # (Auto) 1.65 K/uL (1.2-3.4) Monocytes # (Auto) 0.66 K/uL (0.11-0.59) Eosinophils # (Auto) 0.08 K/uL (0-0.5) Basophils # (Auto) 0.01 K/uL (0-0.2) RDW Standard Deviation 46.0 fL (36.4-46.3) RDW Coefficient of Variation 13.5 % (11.5-14.5) Immature Granulocyte % (Auto) 0.1 % Immature Granulocyte # (Auto) 0.01 K/uL (0.00-0.02) Anion Gap 10.0 mmol/L (3-11) Est Creatinine Clear Calc Drug Dose 18.5 ml/min Estimated GFR () 14.5 Estimated GFR (Non- 12.5 BUN/Creatinine Ratio 13.6 (10-20) Estimated Average Glucose 111 mg/dl Hemoglobin A1c 5.5 % (4.5-5.6) Calcium Level 8.5 mg/dl (8.5-10.1) Total Creatine Kinase 95 U/L (39-308) Creatine Kinase MB 4.5 ng/ml (0.5-3.6) Creatine Kinase MB Ratio 4.7 (0-3.0) Troponin I 2.160 ng/ml (0-0.045) Triglycerides Level 155 mg/dl (0-150) Cholesterol Level 135 mg/dl (0-200) HDL Cholesterol 38 mg/dl LDL Cholesterol, Calculated 66 mg/dl VLDL Cholesterol, Calculated 31 mg/dl Cholesterol/HDL Ratio 3.6 Date/Time Source Procedure Growth Status 11/27/16 06:02 Nasal MRSA DNA Surveillance Screen Pending Stephanie Batch Results Past 24 Hours Test 11/26/16 20:00 11/26/16 20:21 11/26/16 20:51 Range/Units White Blood Count 7.65 4.8-10.8 K/uL Red Blood Count 4.62 4.7-6.1 M/uL Hemoglobin 15.0 14.0-18.0 g/dL Hematocrit 43.4 42-52 % Mean Corpuscular Volume 93.9 80-100 fL Mean Corpuscular Hemoglobin 32.5 25-34 pg Mean Corpuscular Hemoglobin Concent 34.6 32-36 g/dl Platelet Count 210 130-400 K/uL Mean Platelet Volume 9.3 7.4-10.4 fL Neutrophils (%) (Auto) 63.0 % Lymphocytes (%) (Auto) 23.9 % Monocytes (%) (Auto) 12.0 % Eosinophils (%) (Auto) 0.5 % Basophils (%) (Auto) 0.3 % Neutrophils # (Auto) 4.82 1.4-6.5 K/uL Lymphocytes # (Auto) 1.83 1.2-3.4 K/uL Monocytes # (Auto) 0.92 0.11-0.59 K/uL Eosinophils # (Auto) 0.04 0-0.5 K/uL Basophils # (Auto) 0.02 0-0.2 K/uL RDW Standard Deviation 47.2 36.4-46.3 fL RDW Coefficient of Variation 13.7 11.5-14.5 % Immature Granulocyte % (Auto) 0.3 % Immature Granulocyte # (Auto) 0.02 0.00-0.02 K/uL Prothrombin Time 11.2 9.0-12.0 SECONDS Prothromb Time International Ratio 1.0 0.9-1.1 Activated Partial Thromboplast Time 29.1 21.0-31.0 SECONDS Partial Thromboplastin Ratio 1.1 Sodium Level 141 136-145 mmol/L Potassium Level 3.4 3.5-5.1 mmol/L Chloride Level 105 98-107 mmol/L Carbon Dioxide Level 28 21-32 mmol/L Anion Gap 8.0 15.0 16-25 mmol/L Blood Urea Nitrogen 55 7-18 mg/dl Creatinine 4.40 0.60-1.40 mg/dl Est Creatinine Clear Calc Drug Dose 18.8 ml/min Estimated GFR () 14.1 Estimated GFR (Non- 12.1 BUN/Creatinine Ratio 12.5 10-20 Random Glucose 101 70-99 mg/dl Calcium Level 9.2 8.5-10.1 mg/dl Total Creatine Kinase 97 39-308 U/L Creatine Kinase MB 3.9 0.5-3.6 ng/ml Creatine Kinase MB Ratio 4.0 0-3.0 Troponin I 2.240 0-0.045 ng/ml Bedside Hemoglobin 15.0 14.0-18.0 g/dl Bedside Hematocrit 44 42-52 % Bedside Sodium 142 135-144 mEq/L Bedside Potassium 3.3 3.3-5.0 mEq/L Bedside Chloride 104 101-112 mEq/L Bedside Total CO2 28 24-31 mEq/l Bedside Blood Urea Nitrogen 54 7-18 mg/dl Bedside Creatinine 4.2 0.6-1.3 mg/dl Bedside Glucose (other) 99 70-99 mg/dl Bedside Ionized Calcium (Delfina) 1.12 1.12-1.32 mmol/l Diagnostic Radiology CHEST ONE VIEW PORTABLE CLINICAL HISTORY: 76 years-old Male presenting with Stroke. TECHNIQUE: Portable upright AP view of the chest was obtained. COMPARISON: 05/04/2015. FINDINGS: Interval removal of the right subclavian central line. Median sternotomy wires intact. Cardiac silhouette enlarged, unchanged. Atherosclerosis of aortic arch. Mild diffuse added density in the left lung is likely due to underpenetration and overlying soft tissue. No convincing evidence of a focal infiltrate. No large effusion or pneumothorax. Osseous structures normal. Upper abdomen normal. IMPRESSION: 1. Cardiomegaly without evidence of acute cardiopulmonary disease. HEAD WITHOUT CONTRAST (CT) CLINICAL HISTORY: 76 years-old Male presenting with Stroke. TECHNIQUE: Multidetector CT imaging of the head was performed without the use of intravenous contrast. IV contrast: None. A dose lowering technique was used consistent with the principles of ALARA (as low as reasonably achievable). COMPARISON: None. CT DOSE (mGy.cm): The estimated cumulative dose is 537.48 mGy.cm. FINDINGS: Mainframe Applications Developer topogram: Unremarkable. Proportional ventricular and sulcal prominence, likely age-related parenchymal volume loss. Evidence of chronic infarcts in the right cerebellar hemisphere, paramedian left occipital lobe, and more focally in a limited portion of the right occipital lobe. Old lacunar infarct in the left basal ganglia. No mass effect or midline shift. No hemorrhage or acute territorial infarct. No extra-axial fluid collection. Paranasal sinuses and mastoid air cells clear. Calvarium intact. IMPRESSION: 1. No acute intracranial pathology. EKG afib 94 Impression Assessment and Plan 76 yo M with h/o atherosclerosis and atrial fibrillation presents with acute stroke like symptoms. 1. Acute stroke-R leg weakness, R arm weakness and expressive aphasia. TPA criteria met but it was not initially given because his symptoms spontaneously resolved. This was when I saw him and he was completely neurologically intact. He was continued on ASA and a statin. No heparin was given in case of return of stroke symptoms and the need for TPA. 2. PAD/CAD-stable, cont medical therapy. 3. Elevated troponin-thought 2/2 elevated creatinine and prior heart bypass with known vascular disease. Trending serial enzymes. No heparin. TTE ordered 4. Atrial fibrillation-not on anticoagulation but is on ASA and Plavix. Cont this for now. Rate controlled. 5. Chronic, recurrent [id number] the care of an ID specialist. Daily vancomycin 6. MANUEL in setting of CKD-stage IV. Consulting Nephrology. Giving 1L IVF. Monitor PRP. ADDENDUM: I was called by the nurse around 5pm and moved the patient to CT where is CT Head was unchanged. A stroke code was call called for recurrence of R sided weakness and expressive aphasia. Spoke with telestroke Neurologist and we decided to move forward with tPA. Shortly prior to TPA administration, he was starting to speak more and he continued to improve as the infusion continued. DVT proph-SCDs, no heparin products were given Full Code [facility]ist Level of Care Critical Care Resuscitation Status FULL RESUSCITATION VTE Prophylaxis Given or contraindicated: Enoxaparin (Lovenox)SQ, Contraindicated Social Service Consult Lives in [facility]
[2016-11-27] VITALS (42 sets, daily range): BP systolic 110–195; BP diastolic 62–143; PULSE 60–173; TEMP 36.4–36.9; O2SAT 88–100; Ht 180.3 cm; Wt 107.0 kg
[2016-11-27 04:12] LABS: URINE APPEARANCE CLEAR (CLEAR); URINE BILIRUBIN NEG (NEG); URINE COLOR YELLOW; URINE NITRITE NEG (NEG); URINE SPECIFIC GRAVITY 1.013 (1.000-1.030); UROBILINOGEN NEG (NEG); ZZUR CULT IF INDIC CLEAN CATCH NO
[2016-11-27 04:34] LABS: MANUAL MICROSCOPIC REQUIRED? NO; REVIEW REQ? NO
[2016-11-27 04:36] LABS: BUN/CREATININE RATIO 13.6 (10-20); CALCIUM 8.5 mg/dl (8.5-10.1); CREATININE 4.3 mg/dl (0.60-1.40); POTASSIUM 3.2 mmol/L (3.5-5.1)
[2016-11-27 04:45] LABS: HEMATOCRIT 40.5 % (42-52); MEAN CELL VOLUME 93.3 fL (80-100); MEAN CORPUSCULAR HEMOGLOBIN 32.3 pg (25-34); MEAN CORPUSCULAR HGB CONC 34.6 g/dl (32-36); MEAN PLATELET VOLUME 9.2 fL (7.4-10.4); PLATELET COUNT 185 K/uL (130-400); RED BLOOD COUNT 4.34 M/uL (4.7-6.1)
[2016-11-27 04:46] LABS: BASO % 0.1 %; BASO ABS # 0.01 K/uL (0-0.2); COMPLETE YES; IG% 0.1 %; LYMPH % 21.2 %; LYMPH ABS # 1.65 K/uL (1.2-3.4); MONO % 8.5 %; NEUT % 69.1 %
[2016-11-27 04:53] LABS: CHOLESTEROL/HDL RATIO 3.6; CKMB/CK RATIO 4.7 (0-3.0)
[2016-11-27] MEDS ORDERED: SET 2260-0500 IV ONE (06:00)
[2016-11-27] MEDS ORDERED: ALTEPLASE, RECOMBINANT INJ 81 MG in EMPTY BAG 0 ML IV ONE (06:00)
[2016-11-27] MEDS ORDERED: ALTEPLASE, RECOMBINANT INJ 9 MG in SYRINGE 0 ML IV ONE (06:00)
[2016-11-27] MEDS ORDERED: PHARMACIST DISCHARGE MED REC CONSULT PRN (06:15)
[2016-11-27] MEDS ORDERED: SODIUM CHLORIDE 0.9% 1000ML 1,000 ML IV SCH (06:30)
[2016-11-27] MEDS ORDERED: LACTOBACILLUS ACIDOPHILUS (FLORANEX) TAB PO SCH (07:15)
[2016-11-27] MEDS ORDERED: VANCOMYCIN HCL 125 MG/2.5ML SOLN PO SCH (09:00)
[2016-11-27] MEDS ORDERED: CHOLECALCIFEROL 1000 INTER.UNIT TAB PO SCH (09:00)
[2016-11-27] MEDS ORDERED: PANTOprazole SOD 40 MG TAB PO SCH (09:00)
[2016-11-27] MEDS ORDERED: RASPBERRY SYRUP 5 ML UDP PO SCH (09:00)
[2016-11-27] MEDS ORDERED: MULTIVITAMIN TAB PO SCH (09:00)
[2016-11-27] MEDS ORDERED: CLOPIDOGREL BISULFATE 75 MG TAB PO SCH (09:00)
[2016-11-27] MEDS ORDERED: FUROSEMIDE 20 MG TAB PO SCH (09:00)
--- NOTE | 2016-11-27 09:19 | DIAGNOSTIC IMAGING REPORT ---
HEAD WITHOUT CONTRAST (CT) CLINICAL HISTORY: 76 years-old Male with acute stroke symptoms. Acute strokelike symptoms. Initial exam. TECHNIQUE: Multiple axial CT images of the head were obtained without contrast. A dose lowering technique was utilized adhering to the principles of ALARA. CT DOSE: 614.27 mGy.cm COMPARISON: CT head 11/26/2016. FINDINGS: No acute intracranial hemorrhage, midline shift, mass, large territorial ischemia or abnormal extra-axial collection. Background mild to moderate atrophy with ex vacuo ventriculomegaly. Remote infarctions of the bilateral occipital lobes and right cerebellar hemisphere are unchanged. There is moderate background chronic microvascular ischemic changes. Remote lacunar infarction of the left lentiform nucleus. The calvarium is intact. Small right mastoid effusion. Polypoid mucosal disease is seen within the left maxillary sinus. Left mastoid air cells and remaining paranasal sinuses are clear. Soft tissues are unremarkable. No calvarial fracture. IMPRESSION: 1. No acute intracranial abnormality. No hemorrhage or territorial ischemia. 2. Atrophy with chronic microvascular ischemic changes and remote infarctions of the occipital lobes and right cerebellar hemisphere. The above report was generated using voice recognition software. It may contain grammatical, syntax or spelling errors. Electronically signed by: Jace Hendrickson M.D. 11/27/2016 9:17 AM Dictated Date/Time: 11/27/2016 9:14 AM
--- NOTE | 2016-11-27 11:01 | CARDIOLOGY CONSULTATION ---
DATE OF CONSULTATION: 11/27/2016 CONSULTATION REQUESTED BY: Dr. Nix. REASON FOR CONSULTATION: New onset atrial fibrillation in the setting of a CVA. HISTORY OF PRESENT ILLNESS: Mr. Mcmahan is a very pleasant, yet cardiovascularly complex 76-year-old gentleman, who normally follows with Dr. Wetzel of our cardiology practice. He presented to [facility] emergently on 11/26/2016 with complaint of right-sided numbness and collapse into a chair. The patient is currently having difficulty speaking, but is responding appropriately. Majority of the history is obtained through discussion with his , who was at the bedside and review of medical records. Apparently, the patient was at home yesterday when he suddenly developed right-sided weakness and expressive aphasia. He leaned to the right and collapsed on to a chair. He was brought in emergently to the Emergency Department and he was diagnosed with an acute stroke. He was seen by tele stroke medicine and lytics were ordered; however, symptoms resolved and they were not given. However, early in the a.m. of 11/27/2016, his symptoms recurred and lytics were then given. He has had some improvement since the lytics were given. He maintains muscle tone on the right side; however, with continued weakness and even though he is answering questions appropriately with yes and no answers, he does have a slight expressive aphasia and is not able to articulate further. Upon further questioning, the patient states approximately 2 weeks ago, he started developing dyspnea with exertion and palpitations. He states these symptoms were exactly similar to the atrial flutter he had in the remote past, but he did not seek medical attention at that time. Otherwise, he has been compliant with his medications and his most recent procedure was a right upper extremity fistula placement with Dr. Pavon in August of this year. PAST SURGICAL HISTORY: 1. Right upper extremity fistula placement for possible dialysis access in August 2016. 2. Bilateral carotid endarterectomies. 3. Left fem-fem bypass. 4. Lower extremity wound grafting. 5. PTCA of the iliac artery in 2015. 6. Fem-pop bypass. 7. Common femoral endarterectomy. 8. Upper endoscopy. 9. Colonoscopy. 10. Coronary artery bypass grafting x3 with YIN to the LAD, vein graft to OM1 and 2. 11. Atrial flutter ablation. MEDICAL ILLNESSES: 1. Coronary artery disease, status post CABG. 2. Severe peripheral vascular disease, status post lower extremity intervention and bilateral endarterectomies. 3. Longstanding tobacco abuse. 4. Stage IV chronic kidney disease. 5. Hypertension. 6. Hyperlipidemia. 7. History of atrial flutter, status post ablation without recurrence. 8. History of TIA. FAMILY HISTORY: Noncontributory. SOCIAL HISTORY: The patient is a former smoker, quit in 2016. Denies any alcohol or recreational drug use. He is and lives at home with his . REVIEW OF SYSTEMS: As per HPI, all other review of systems reviewed and negative at this time. ALLERGIES: No known drug allergies. MEDICATIONS AN OUTPATIENT: 1. Aspirin 81 mg daily. 2. Plavix 75 mg daily. 3. Crestor 40 mg daily. 4. Metoprolol tartrate 25 mg b.i.d. 5. Lasix 20 mg daily. 6. Prilosec daily. 7. Oxycodone as needed. PHYSICAL EXAMINATION: VITALS: Temperature 36.6, pulse 95, respiratory rate 12, blood pressure 172/76, and saturating 95% on 2 liters nasal cannula. GENERAL: Awake, alert, and oriented x3 in no acute distress. HEENT: Normocephalic and atraumatic. Right-sided slight facial droop with expressive aphasia. Extraocular muscles intact. Anicteric sclerae. NECK: No JVD. Bilateral bruits are present. CARDIOVASCULAR: Irregularly irregular. Unable to appreciate any murmurs, rubs or gallops. PULMONARY: Poor air movement bilaterally, but clear. No rales, rhonchi, or wheezing. ABDOMEN: Bowel sounds x4. Soft. No rebound, guarding, or tenderness. No organomegaly with significant abdominal bruit. EXTREMITIES: Right lower extremity tib-fib is tender to palpation. No clubbing, cyanosis or edema. +1 pedal pulses bilaterally. SKIN: Warm and dry. TEST RESULTS: A 12-lead EKG in the Emergency Department independently reviewed at this time shows atrial fibrillation at 94 beats per minute. Troponin of 2.16. Sodium 142, potassium 4.2, BUN 59, and creatinine 4.3. IMPRESSION: 1. Acute cerebrovascular accident, likely embolic in nature with underlying thrombosis. 2. New onset atrial fibrillation, likely over 2 weeks in duration. 3. Coronary artery disease. 4. Severe peripheral vascular disease. 5. Right lower extremity pain concerning for possible injury, status post fall. 6. Stage IV chronic kidney disease. 7. Elevated troponin. RECOMMENDATIONS: It was my pleasure to see Mr. Mcmahan in consultation today. The pathophysiology of atrial fibrillation was discussed with the patient and his in great length. They were counseled that based on his symptoms, I suspect that he has been in atrial fibrillation for about 2 weeks and most likely developed a thrombus in that time and that thrombus then led to his CVA. So at this time, the patient has already received lytic therapy and we will follow post-lytic therapy protocols for anticoagulation. After discussion with neurology, we will hold off any antiplatelets or anticoagulation for at least [address] of the head is repeated and should no significant bleed be found at that time, the consideration can be given to anticoagulation. I suspect the patient will likely ultimately end up on Coumadin and Plavix while holding the aspirin to decrease the bleeding risk. Otherwise, in terms of his rate control, his heart rate is in the 90s right now and given the acute setting, we will hold off any rate controlling agents at this time, particularly in the setting of need for permissive hypertension to increase the cerebral flow. In terms of his troponin, I am not concerned this represents an acute myocardial ischemia specifically given his underlying coronary artery disease and renal function if anything likely represents a type 2 demand ischemia in the setting of atrial fibrillation with rapid ventricular response. Thank you very much for allowing me to participate in the care of your patient. It will be my pleasure to follow him along with you during his hospital stay. RUDDY
--- NOTE | 2016-11-27 11:13 | DIAGNOSTIC IMAGING REPORT ---
ORBITS FOR MRI HISTORY: 76 years-old Male R/O FOREIGN BODY FOR MRI concern for foreign body. Screening exam. COMPARISON: CT head of same day TECHNIQUE: 3 views of the orbits FINDINGS: Mild maxillary and sinus disease noted bilaterally. Frontal sinuses appear aerated. No facial bone fracture. No opaque foreign body identified. IMPRESSION: 1. No radiopaque foreign body. 2. Mild paranasal sinus disease. The above report was generated using voice recognition software. It may contain grammatical, syntax or spelling errors. Electronically signed by: Jace Hendrickson M.D. 11/27/2016 11:12 AM Dictated Date/Time: 11/27/2016 11:11 AM
[2016-11-27] MEDS ORDERED: POTASSIUM CHLORIDE 20 MEQ/15 ML UDC PO ONE (11:15)
[2016-11-27] MEDS ORDERED: NURSING VERBAL MED ORDER ONE (11:15)
--- NOTE | 2016-11-27 11:38 | DIAGNOSTIC IMAGING REPORT ---
R TIBIA/FIBULA 2 VIEWS ROUTINE HISTORY: 76 years-old Male fall right leg pain acute right leg pain status post fall. COMPARISON: None available TECHNIQUE: 2 views of the right tibia and fibula FINDINGS: Bones are mildly demineralized. Tricompartmental osteoarthritis is seen about the knee. There are prominent enthesophytes about the calcaneus. Mild pes planus deformity. No acute fracture or dislocation identified. Peripheral vascular calcifications are noted. There is a 5 mm linear radiodensity within the lateral soft tissues inferior to the lateral malleolus. Mild soft tissue swelling about the ankle. IMPRESSION: 1. Mild soft tissue swelling about the ankle without acute bony abnormality. 2. 5 mm linear radiodensity inferior to the lateral malleolus may reflect foreign body. Correlate with clinical exam. 3. Degenerative changes as above. 4. Peripheral vascular disease. The above report was generated using voice recognition software. It may contain grammatical, syntax or spelling errors. Electronically signed by: Jace Hendrickson M.D. 11/27/2016 11:36 AM Dictated Date/Time: 11/27/2016 11:33 AM
--- NOTE | 2016-11-27 11:55 | DIAGNOSTIC IMAGING REPORT ---
CAROTID DOPPLER NECK ART CLINICAL HISTORY: 76 years-old Male with Stroke. Acute strokelike symptoms. 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 COMPARISON: Carotid ultrasound 03/27/2012 TECHNIQUE: Multiple real time sonographic images of the carotid bifurcations were obtained assessing gambino scale, color Doppler and spectral wave form appearance FINDINGS: RIGHT CAROTID: The peak systolic velocity measured 60 cm/sec. The end diastolic velocity measured 14 cm/sec. The ICA to CCA ratio measured 0.59 which correlates with a stenosis of 0-50%. Extensive mixed plaquing is seen throughout the right carotid vasculature, notably at the bulb. LEFT CAROTID: The peak systolic velocity measured 69 cm/sec. The end diastolic velocity measured 19 cm/sec. The ICA to CCA ratio measured 0.93 which correlates with a stenosis of 0-50%. Extensive mixed plaquing is seen throughout the left carotid vasculature. There is antegrade vertebral flow bilaterally. Blunted waveforms however are seen within the right vertebral artery with peak systolic velocity of 11 cm/s. IMPRESSION: 1. Extensive mixed plaquing of the bilateral carotid vasculature redemonstrated. The previously described hemodynamically significant stenosis of the left internal carotid artery is no longer identified. No hemodynamically significant stenosis is seen on either side. 2. Blunted monophasic waveform of the right vertebral artery is noted with persistent antegrade flow, suspicious for underlying stenosis. The above report was generated using voice recognition software. It may contain grammatical, syntax or spelling errors. Electronically signed by: Jace Hendrickson M.D. 11/27/2016 11:54 AM Dictated Date/Time: 11/27/2016 11:47 AM
--- NOTE | 2016-11-27 12:35 | NEUROLOGY CONSULTATION ---
DATE OF CONSULTATION: 11/27/2016 REASON FOR CONSULTATION: Stroke. HISTORY OF PRESENT ILLNESS: The patient is a 76-year-old right-handed male with a history of coronary artery disease, peripheral vascular disease, on aspirin and Plavix. He has been in his usual state of health about a week ago. He fell while leaning and getting ice water out of the refrigerator. He had no noted neurologic deficit, although he did have injury to his right forearm, for which they sought medical advice. He has been feeling mildly short of breath in the last 2 weeks. At 07:30 in the evening, he stood up and fell due to right-sided weakness. He then later several minutes into the course of this became mute. He was awake and alert, appears to understand what was going on, but could otherwise not speak. He was brought into the Emergency Room and by the time, his met him in the Emergency Room, he was improving. The [facility] stroke neurologist was consulted and as the patient was improving, TPA was not given. A noncontrast CT of the head showed a right cerebellar infarct, right occipital infarct and left basal ganglia infarct. No hemorrhage. The patient was admitted to the floor and was admitted to the hospital. At approximately 05:00 a.m., he had a new episode of right-sided weakness with language dysfunction. The stroke neurologist was reconsulted. This was approximately 9 hours after the initial symptom and it was advised to give TPA. The patient started improving spontaneously soon after the infusion was started. He has some mild residual right-sided weakness and some expressive language dysfunction. The patient has otherwise been well. About a week ago, he had some dental work. He has had the aforementioned shortness of breath. He had had the aforementioned fall. Otherwise, no head or neck injury. He has had chiropractor manipulation, but no cracking of the cervical spine. No manipulation of the cervical spine. He has not had any weight loss, fevers, chills, sweats, diarrhea, nausea, vomiting, or rash. He has been compliant with his medications. He has no prior history of transient ischemic attack. PAST MEDICAL HISTORY: He had atrial flutter in the past, which was treated with ablation; coronary artery disease; congestive heart failure; chronic kidney disease, not on dialysis; dyslipidemia; reflux; hypertension; osteoarthritis; and peripheral vascular disease. He has no history of cancer or DVT. PAST SURGICAL HISTORY: Right femoral endarterectomy, left femoral stent, left common femoral endarterectomy, left common and deep femoral endarterectomy, left common and external iliac stent and angioplasty, left femoral and popliteal stent and angioplasty, bilateral carotid endarterectomies, ablation of atrial flutter, and bypass. SOCIAL HISTORY: Stopped smoking recently. Stopped drinking alcohol recently. He has been exhibiting no withdrawal symptoms at home. 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 FAMILY HISTORY: Diabetes and heart disease. No family history of stroke. HOME MEDICATIONS: Aspirin 161, vitamin D3, Plavix, Lasix, lactobacillus, metoprolol, multiple vitamin, omeprazole, rosuvastatin and vancomycin q.a.m. ALLERGIES: NO ALLERGIES ARE KNOWN. LABORATORY DATA: White count 7.6, H&H 15/43, and platelet count 210. PT 11.2 and PTT 29.1. Sodium 141, potassium 3.4, BUN and creatinine 55/4.4, and glucose 101. Troponin 2.24. Urinalysis negative, 1+ blood, and 10-20 epithelial cells. PHYSICAL EXAMINATION: VITAL SIGNS: On admission, temperature 36.9, pulse 108, respiratory rate 16, blood pressure 184/96, and oxygen saturation 93%. Pulse max appears to be in the 106. Currently, blood pressure 153/99, respiratory rate 20, pulse 102, and oxygen saturation 97%. GENERAL: The patient is awake and alert. There is a paucity of spontaneous speech. His affect is very mildly flat. He is oriented to hospital and year. He lists slowly and is able to name items. He has some difficulty with repetitions and followed only 2 out of 3-step commands. NECK: There are no carotid bruits. HEART: No heart murmurs. Heart is irregularly irregular. Change murmur is noted over the aortic area. HEAD: Normocephalic and atraumatic. ABDOMEN: Soft and nontender. EXTREMITIES: Left lower extremity is increase in circumference compared to right. indicates this is related to prior vascular procedures in the left lower extremity. Pulses are difficult to palpate in the feet. Of note, there is some pink staining of the urine in the Harmon catheter. NEUROLOGIC: Pupils are myotic, but reactive. I could not reliably visualize the optic nerves. The patient could not reliably count, but was able to show me the number of fingers and visual larson. There is some mild flattening of the right nasolabial fold. Right upper extremity is about 4 with equal and rapid alternating movements and mild drift. Right lower extremity about the same. No clear sensory loss is noted. [id number] and [id number] are normal. Reflexes are symmetric. Right toes up. Left toes down. IMPRESSION: Left middle cerebral artery infarction, for which the patient has received TPA, likely embolic PLAN: TPA protocol. MRI of the brain. Carotid ultrasound. Echo. Echocardiography. As part of the protocol, the patient will have a followup CT of the head, noncontrast, 24 hours. We will make a determination at that point regarding anticoagulant therapy, based on size of the infarct and clinical function. Permissive hypertension is appropriate at this point to include TRAY PACKER perfusion. We will follow with you. Discussed with Dr Ye and pt . WILLIAM Germain MD [facility]
--- NOTE | 2016-11-27 13:18 | DIAGNOSTIC IMAGING REPORT ---
BRAIN WITHOUT CONTRAST HISTORY: 76 years-old Male acute stroke symptoms today with resolution, h/o afib, CABG, PAD acute strokelike symptoms with history of atrial fibrillation and acute right-sided weakness COMPARISON: Head CT of same day TECHNIQUE: Multiplanar multisequence MRI the brain was obtained without contrast FINDINGS: No restricted diffusion to suggest acute ischemia. Midline structures including the corpus callosum, brainstem, optic chiasm, pituitary and pineal gland are unremarkable. No cerebellar tonsillar herniation. Degenerative changes are seen about the imaged cervical spine. No pathologic blooming artifact on the T2 star sequence. Mild to moderate atrophy with ex vacuo ventriculomegaly. No acute intracranial hemorrhage, midline shift, abnormal extra-axial collections, hydrocephalus or intracranial mass. Patchy areas of subcortical and periventricular T-2/FLAIR prolongation are noted compatible with chronic microvascular ischemic changes. Gliosis and encephalomalacia related to remote infarctions seen within the bilateral occipital lobes and right cerebellar hemisphere. Major flow voids at the level of the skull base appear patent. The V4 segment right vertebral artery appears diminutive. Orbits are symmetric. Small right mastoid effusion. Polypoid mucosal disease of the inferior left maxillary sinus. Mild ethmoid sinus disease. IMPRESSION: 1. No acute intracranial abnormality. No acute ischemia or hemorrhage. 2. Atrophy with chronic microvascular ischemic changes. Gliosis and encephalomalacia related to remote infarction are seen within the bilateral occipital and right cerebellar hemispheres. 3. Small right mastoid effusion. Mild paranasal sinus disease. The above report was generated using voice recognition software. It may contain grammatical, syntax or spelling errors. Electronically signed by: Jace Hendrickson M.D. 11/27/2016 1:16 PM Dictated Date/Time: 11/27/2016 1:10 PM
--- NOTE | 2016-11-27 18:49 | Critical Care Consultation ---
Critical Care Consultation Date of Consultation: Nov 27, 2016. Attending Physician: Cherry Pierre M.D. Reason for Consultation: Stroke. History of Present Illness I personally examined this patient, reviewed his clinical and laboratory data, interpreted his x-ray and formulated further plan of care. In summary, the patient is a 76 old gentleman with extensive medical history including TIA, peripheral vascular disease, coronary artery disease, status post CABG who was admitted to the hospital yesterday with right-sided weakness and expressive aphasia. No TPA was given as symptoms resolve spontaneously. Initial CT scan from yesterday revealed no acute intracranial pathology, multiple old infarcts in the right cerebellar hemisphere, per medial left occipital lobe, right occipital lobe, lacunar infarct in the left basal ganglia. Ultrasound revealed extensive mixed plaquing of the bilateral carotid vasculature, significant stenosis of the left internal carotid artery was no longer identified. Stroke alert was called 5 am for new episode of right-sided weakness and aphasia. Urgently repeated CT scan again revealed no acute intracranial abnormality. Patient was urgently transferred critically ill to surgical intensive care unit. After urgent consultation with stroke neurology patient was given TPA. Past Medical/Surgical History Atrial fibrillation Coronary artery disease Congestive heart failure Chronic kidney disease Hyperlipidemia GERD Hypertension Osteoarthritis Peripheral vascular disease Transient ischemic attack Family History Diabetes mellitus FH: heart disease No history of stroke. Social History Patient lives with his . Extensive history of smoking, recent cessation. Patient stopped drinking alcohol recently. 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 Smoking Status: Unknown if Ever Smoked Smokeless Tobacco Use: No Alcohol Use: socially Drug Use: none Marital Status: Housing Status: lives with family Occupation Status: retired Allergies Coded Allergies: No Known Allergies (Verified , 09/20/16) Home Medications Scheduled Aspirin (Aspirin Ec), 161 MG PO HS Cholecalciferol (Vitamin D3), 1,000 INTER.UNIT PO QAM Clopidogrel Bisulfate (Clopidogrel), 75 MG PO QAM Furosemide (Lasix), 20 MG PO QAM Lactobacillus Acidophilus (Lactinex), 1 TAB PO TIDM Metoprolol Tartrate (Lopressor), 25 MG PO BID Multivitamin (Multivitamin), 1 TAB PO QAM Omeprazole (Prilosec), 20 MG PO QAM Rosuvastatin Calcium (Rosuvastatin Calcium), 40 MG PO QPM Vancomycin Hcl (Vancomycin), 125 MG PO QAM Current Inpatient Medications Current Inpatient Medications Medications (Trade) Dose Ordered Sig/Maria Guadalupe Route Start Time Stop Time Status Last Admin Dose Admin Miscellaneous Information (Pharmacist Discharge Med Rec Consult) 1 ea UD PRN N/A 11/26/16 22:45 12/26/16 22:44 Ondansetron HCl (Zofran Inj) 4 mg Q6H PRN IV 11/26/16 22:45 12/26/16 22:44 Morphine Sulfate (MoRPHine SULFATE INJ) 2 mg Q30M PRN IV 11/26/16 22:45 12/10/16 22:44 Review of Systems Patient is not able to provide with history due to expressive aphasia. There is right-sided weakness. Physical Exam Date Time Temp Pulse Resp B/P (MAP) Pulse Ox O2 Delivery O2 Flow Rate FiO2 11/27/16 18:00 87 20 140/71 (94) 96 Nasal Cannula 2.0 11/27/16 18:00 87 20 140/71 (94) 96 Nasal Cannula 2.0 11/27/16 17:00 87 22 165/89 (114) 97 Nasal Cannula 2.0 11/27/16 16:00 84 22 149/83 (105) 97 Nasal Cannula 2.0 11/27/16 16:00 Nasal Cannula 2.0 11/27/16 16:00 84 22 149/83 (105) 97 Nasal Cannula 2.0 11/27/16 15:00 115 22 166/89 (114) 98 Nasal Cannula 2.0 11/27/16 14:00 112 22 156/91 (112) 98 Nasal Cannula 2.0 11/27/16 14:00 112 22 156/91 (112) 98 Nasal Cannula 2.0 11/27/16 13:30 96 18 156/91 (112) 98 Nasal Cannula 2.0 11/27/16 13:00 88 18 123/87 (99) 99 Nasal Cannula 2.0 11/27/16 12:30 92 16 131/77 (95) 100 Nasal Cannula 2.0 11/27/16 12:00 111 20 155/101 (119) 95 Nasal Cannula 2.0 11/27/16 12:00 Nasal Cannula 2.0 11/27/16 12:00 111 20 155/101 (119) 95 Nasal Cannula 2.0 11/27/16 11:30 102 20 95 Nasal Cannula 2.0 11/27/16 11:00 102 20 153/99 (117) 97 Nasal Cannula 2.0 11/27/16 10:30 101 20 157/82 (107) 96 Nasal Cannula 2.0 11/27/16 10:00 105 20 161/101 (121) 98 Nasal Cannula 2.0 11/27/16 10:00 105 20 161/101 (121) 98 Nasal Cannula 2.0 11/27/16 09:30 95 20 172/76 (108) 95 Nasal Cannula 2.0 11/27/16 09:00 93 18 148/93 (111) 97 Nasal Cannula 2.0 11/27/16 08:30 103 18 140/77 (98) 96 Nasal Cannula 2.0 11/27/16 08:15 91 18 169/73 (105) 97 Nasal Cannula 2.0 11/27/16 08:00 Nasal Cannula 2.0 11/27/16 08:00 101 20 160/76 (104) 95 Nasal Cannula 2.0 11/27/16 07:45 90 20 154/85 (108) 95 Nasal Cannula 2.0 11/27/16 07:30 36.6 95 16 152/72 (98) 95 Nasal Cannula 2.0 11/27/16 07:16 103 23 135/83 (100) 93 Nasal Cannula 2.0 11/27/16 07:01 96 22 110/67 (81) 97 Nasal Cannula 2.0 11/27/16 06:46 106 21 154/84 (107) 95 Nasal Cannula 2.0 11/27/16 06:31 84 21 149/78 (101) 95 Nasal Cannula 2.0 11/27/16 06:15 36.5 111 29 111/96 (101) 92 Room Air 11/27/16 06:15 173 29 111/96 (101) 88 Room Air 11/27/16 06:11 96 21 140/115 (123) 94 Room Air 11/27/16 06:02 100 16 170/80 (110) 91 Room Air 11/27/16 05:59 85 25 141/75 (97) 91 Room Air 11/27/16 05:58 65 25 173/ (57) 93 Room Air 11/27/16 05:56 60 21 195/143 (160) 92 Room Air 11/27/16 05:51 86 28 171/71 (104) 96 Room Air 11/27/16 05:46 62 28 159/97 (117) 94 Room Air 11/27/16 05:37 101 17 187/94 (125) 11/27/16 05:33 36.5 84 23 166/62 (96) 93 Room Air 11/27/16 04:00 Room Air 11/27/16 03:45 36.5 90 18 155/69 (97) 93 Room Air 11/27/16 00:30 36.9 78 16 141/88 99 Nasal Cannula 2.0 11/26/16 23:43 77 20 134/79 98 Room Air 11/26/16 23:03 78 20 180/99 97 Nasal Cannula 2.0 11/26/16 22:11 75 20 139/88 99 11/26/16 22:06 76 14 170/61 98 11/26/16 22:01 80 19 156/72 99 11/26/16 21:56 78 20 169/61 97 11/26/16 21:51 81 19 170/92 97 11/26/16 21:46 80 22 170/75 98 11/26/16 21:41 84 13 149/81 99 11/26/16 21:36 82 17 184/56 98 11/26/16 21:31 81 18 176/71 98 11/26/16 21:31 85 11/26/16 21:26 85 23 146/90 96 11/26/16 21:21 82 19 176/104 98 11/26/16 21:16 78 21 172/77 96 11/26/16 21:11 79 22 172/89 97 11/26/16 21:06 92 19 162/111 97 11/26/16 21:01 88 21 197/99 98 11/26/16 21:00 181/133 11/26/16 20:58 93 20 98 11/26/16 20:56 191/81 11/26/16 20:35 93 Room Air 11/26/16 20:29 36.9 108 16 184/96 93 Room Air General Appearance: no apparent distress Head: normocephalic, atraumatic Eyes: PERRLA, no discharge, EOMI, sclerae normal, conjunctivae normal ENT: normal ear exam, normal nasal exam Neck: normal range of motion, no tenderness, trachea midline, no stridor, supple Respiratory: breath sounds normal, clear to auscultation, clear to percussion Cardiovasular: irregular rate Abdomen: non tender, normal bowel sounds, no masses, no guarding, no organomegaly Back: normal inspection, no midline tenderness, no CVA tenderness Upper Extremities: no edema Lower Extremities: no edema Neuro: alert, other (oriented to to Hospital and year. Normal strength on the left side. Right upper and lower extremities 3 over 5. Mild flattening of the right nasolabial fold.) Laboratory Results Last 24 Hours Test 11/26/16 20:00 11/26/16 20:43 11/26/16 20:51 11/27/16 03:40 White Blood Count 7.65 K/uL Red Blood Count 4.62 M/uL Hemoglobin 15.0 g/dL Hematocrit 43.4 % Mean Corpuscular Volume 93.9 fL Mean Corpuscular Hemoglobin 32.5 pg Mean Corpuscular Hemoglobin Concent 34.6 g/dl Platelet Count 210 K/uL Mean Platelet Volume 9.3 fL Neutrophils (%) (Auto) 63.0 % Lymphocytes (%) (Auto) 23.9 % Monocytes (%) (Auto) 12.0 % Eosinophils (%) (Auto) 0.5 % Basophils (%) (Auto) 0.3 % Neutrophils # (Auto) 4.82 K/uL Lymphocytes # (Auto) 1.83 K/uL Monocytes # (Auto) 0.92 K/uL Eosinophils # (Auto) 0.04 K/uL Basophils # (Auto) 0.02 K/uL RDW Standard Deviation 47.2 fL RDW Coefficient of Variation 13.7 % Immature Granulocyte % (Auto) 0.3 % Immature Granulocyte # (Auto) 0.02 K/uL Prothrombin Time 11.2 SECONDS Prothromb Time International Ratio 1.0 Activated Partial Thromboplast Time 29.1 SECONDS Partial Thromboplastin Ratio 1.1 Sodium Level 141 mmol/L Potassium Level 3.4 mmol/L Chloride Level 105 mmol/L Carbon Dioxide Level 28 mmol/L Anion Gap 8.0 mmol/L 15.0 mmol/L Blood Urea Nitrogen 55 mg/dl Creatinine 4.40 mg/dl Est Creatinine Clear Calc Drug Dose 18.8 ml/min Estimated GFR () 14.1 Estimated GFR (Non- 12.1 BUN/Creatinine Ratio 12.5 Random Glucose 101 mg/dl Calcium Level 9.2 mg/dl Total Creatine Kinase 97 U/L Creatine Kinase MB 3.9 ng/ml Creatine Kinase MB Ratio 4.0 Troponin I 2.240 ng/ml Bedside Glucose 102 mg/dl Bedside Hemoglobin 15.0 g/dl Bedside Hematocrit 44 % Bedside Sodium 142 mEq/L Bedside Potassium 3.3 mEq/L Bedside Chloride 104 mEq/L Bedside Total CO2 28 mEq/l Bedside Blood Urea Nitrogen 54 mg/dl Bedside Creatinine 4.2 mg/dl Bedside Glucose (other) 99 mg/dl Bedside Ionized Calcium (Delfina) 1.12 mmol/l Urine Color YELLOW Urine Appearance CLEAR Urine pH 6.0 Urine Specific Pillow 1.013 Urine Protein 2+ Urine Glucose (UA) NEG Urine Ketones NEG Urine Occult Blood 1+ Urine Nitrite NEG Urine Bilirubin NEG Urine Urobilinogen NEG Urine Leukocyte Esterase NEG Urine WBC (Auto) 1-5 /hpf Urine RBC (Auto) 0-4 /hpf Urine Hyaline Casts (Auto) 1-5 /lpf Urine Epithelial Cells (Auto) 10-20 /lpf Urine Bacteria (Auto) NEG Test 11/27/16 03:50 11/27/16 10:20 White Blood Count 7.80 K/uL Red Blood Count 4.34 M/uL Hemoglobin 14.0 g/dL Hematocrit 40.5 % Mean Corpuscular Volume 93.3 fL Mean Corpuscular Hemoglobin 32.3 pg Mean Corpuscular Hemoglobin Concent 34.6 g/dl Platelet Count 185 K/uL Mean Platelet Volume 9.2 fL Neutrophils (%) (Auto) 69.1 % Lymphocytes (%) (Auto) 21.2 % Monocytes (%) (Auto) 8.5 % Eosinophils (%) (Auto) 1.0 % Basophils (%) (Auto) 0.1 % Neutrophils # (Auto) 5.39 K/uL Lymphocytes # (Auto) 1.65 K/uL Monocytes # (Auto) 0.66 K/uL Eosinophils # (Auto) 0.08 K/uL Basophils # (Auto) 0.01 K/uL RDW Standard Deviation 46.0 fL RDW Coefficient of Variation 13.5 % Immature Granulocyte % (Auto) 0.1 % Immature Granulocyte # (Auto) 0.01 K/uL Sodium Level 142 mmol/L Potassium Level 3.2 mmol/L Chloride Level 107 mmol/L Carbon Dioxide Level 25 mmol/L Anion Gap 10.0 mmol/L Blood Urea Nitrogen 59 mg/dl Creatinine 4.30 mg/dl Est Creatinine Clear Calc Drug Dose 18.5 ml/min Estimated GFR () 14.5 Estimated GFR (Non- 12.5 BUN/Creatinine Ratio 13.6 Random Glucose 95 mg/dl Estimated Average Glucose 111 mg/dl Hemoglobin A1c 5.5 % Calcium Level 8.5 mg/dl Total Creatine Kinase 95 U/L 88 U/L Creatine Kinase MB 4.5 ng/ml Creatine Kinase MB Ratio 4.7 Troponin I 2.160 ng/ml Triglycerides Level 155 mg/dl Cholesterol Level 135 mg/dl HDL Cholesterol 38 mg/dl LDL Cholesterol, Calculated 66 mg/dl VLDL Cholesterol, Calculated 31 mg/dl Cholesterol/HDL Ratio 3.6 Assessment & Plan 1. Left MCA infarct, likely thromboembolic related to atrial fibrillation status post TPA. -Neuro checks, monitoring in the ICU -MRI/MRA -CT scan in 24 hours to rule out hemorrhage. -Obtain echocardiography, TSH, cholesterol profile 2. Atrial fibrillation. No anticoagulation for [address] scan of head was obtained and hemorrhage ruled out. We will continue with metoprolol for rate control. 3. Coronary artery disease, history of CABG. Leak of troponin is likely due to renal failure and demand ischemia. 4. Acute on chronic kidney disease. Mild hypokalemia we'll replace it. Nephrology consultation. 5. 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 6. Hematology: Hemoglobin and coagulation profile in the range 8. GI prophylaxis 9. Patient is full code. CCT 34 min
--- NOTE | 2016-11-27 19:32 | Progress Note ---
Internal Med Progress Note Date of Service: Nov 27, 2016. Provider Documentation: pt seen at 9 am today SUBJECTIVE: has persistent dysarthria and rt sided weakness OBJECTIVE: Vital Signs-as noted below Exam: General-no sign of distress Eyes-PERRLA/EOMI ENT-NAD Neck-no JVD , no thyromegaly Lungs-CTA Heart-regular S1/S2 Abdomen-soft, non tender Extremities-no lower ext edema Neuro-rt sided weakness, dysarthria Lab data as noted below. ASSESSMENT & PLAN: ACUTE CVA WITH RT SIDED WEAKNESS Possible cardioembolic given afib ( new dx was not on anticoagulation )) status post TPA. -Neuro checks, monitoring in the ICU -CT scan in 24 hours to rule out hemorrhage. appreciate input form Neurology and critical care AFIB : new Dx pt mentions of being tired /TABARES for past 2 weeks EKG shows Afib with controlled rate appreciate input from Cardiology cont on Beta ajdyn hold of therapeutic anticoagulation for recent tPA ELEVATED TROPONIN : possible due to demand ischemia in setting of rapid afib /acute CVA , CKD stage 4 Hx of CAD S/p CABG pt does not have any angina appreciate cardiology eval no Aspirin for recent tPA CKD STAGE 4 no evidence of vol overload follows with Nephrology D Donelen follow PRP Nephrology eval requested DVT PROPHYLAXIS scd and teds avoid anticoagulation next 24-48 hr due to tPA DISPOSITION ordered for PT/OT eval pt will benefit with acute rehab after discharge from hospital Social service consulted for discharge planning Vital Signs: Date Time Temp Pulse Resp B/P (MAP) Pulse Ox O2 Delivery O2 Flow Rate FiO2 11/27/16 19:00 86 22 134/94 (107) 97 Nasal Cannula 2.0 11/27/16 18:00 87 20 140/71 (94) 96 Nasal Cannula 2.0 11/27/16 18:00 87 20 140/71 (94) 96 Nasal Cannula 2.0 11/27/16 17:00 87 22 165/89 (114) 97 Nasal Cannula 2.0 11/27/16 16:00 84 22 149/83 (105) 97 Nasal Cannula 2.0 11/27/16 16:00 Nasal Cannula 2.0 11/27/16 16:00 84 22 149/83 (105) 97 Nasal Cannula 2.0 11/27/16 15:00 115 22 166/89 (114) 98 Nasal Cannula 2.0 11/27/16 14:00 112 22 156/91 (112) 98 Nasal Cannula 2.0 11/27/16 14:00 112 22 156/91 (112) 98 Nasal Cannula 2.0 11/27/16 13:30 96 18 156/91 (112) 98 Nasal Cannula 2.0 11/27/16 13:00 88 18 123/87 (99) 99 Nasal Cannula 2.0 11/27/16 12:30 92 16 131/77 (95) 100 Nasal Cannula 2.0 11/27/16 12:00 111 20 155/101 (119) 95 Nasal Cannula 2.0 11/27/16 12:00 Nasal Cannula 2.0 11/27/16 12:00 111 20 155/101 (119) 95 Nasal Cannula 2.0 11/27/16 11:30 102 20 95 Nasal Cannula 2.0 11/27/16 11:00 102 20 153/99 (117) 97 Nasal Cannula 2.0 11/27/16 10:30 101 20 157/82 (107) 96 Nasal Cannula 2.0 11/27/16 10:00 105 20 161/101 (121) 98 Nasal Cannula 2.0 11/27/16 10:00 105 20 161/101 (121) 98 Nasal Cannula 2.0 11/27/16 09:30 95 20 172/76 (108) 95 Nasal Cannula 2.0 11/27/16 09:00 93 18 148/93 (111) 97 Nasal Cannula 2.0 11/27/16 08:30 103 18 140/77 (98) 96 Nasal Cannula 2.0 11/27/16 08:15 91 18 169/73 (105) 97 Nasal Cannula 2.0 11/27/16 08:00 Nasal Cannula 2.0 11/27/16 08:00 101 20 160/76 (104) 95 Nasal Cannula 2.0 11/27/16 07:45 90 20 154/85 (108) 95 Nasal Cannula 2.0 11/27/16 07:30 36.6 95 16 152/72 (98) 95 Nasal Cannula 2.0 11/27/16 07:16 103 23 135/83 (100) 93 Nasal Cannula 2.0 11/27/16 07:01 96 22 110/67 (81) 97 Nasal Cannula 2.0 11/27/16 06:46 106 21 154/84 (107) 95 Nasal Cannula 2.0 11/27/16 06:31 84 21 149/78 (101) 95 Nasal Cannula 2.0 11/27/16 06:15 36.5 111 29 111/96 (101) 92 Room Air 11/27/16 06:15 173 29 111/96 (101) 88 Room Air 11/27/16 06:11 96 21 140/115 (123) 94 Room Air 11/27/16 06:02 100 16 170/80 (110) 91 Room Air 11/27/16 05:59 85 25 141/75 (97) 91 Room Air 11/27/16 05:58 65 25 173/ (57) 93 Room Air 11/27/16 05:56 60 21 195/143 (160) 92 Room Air 11/27/16 05:51 86 28 171/71 (104) 96 Room Air 11/27/16 05:46 62 28 159/97 (117) 94 Room Air 11/27/16 05:37 101 17 187/94 (125) 11/27/16 05:33 36.5 84 23 166/62 (96) 93 Room Air 11/27/16 04:00 Room Air 11/27/16 03:45 36.5 90 18 155/69 (97) 93 Room Air 11/27/16 00:30 36.9 78 16 141/88 99 Nasal Cannula 2.0 11/26/16 23:43 77 20 134/79 98 Room Air 11/26/16 23:03 78 20 180/99 97 Nasal Cannula 2.0 11/26/16 22:11 75 20 139/88 99 11/26/16 22:06 76 14 170/61 98 11/26/16 22:01 80 19 156/72 99 11/26/16 21:56 78 20 169/61 97 11/26/16 21:51 81 19 170/92 97 11/26/16 21:46 80 22 170/75 98 11/26/16 21:41 84 13 149/81 99 11/26/16 21:36 82 17 184/56 98 11/26/16 21:31 81 18 176/71 98 11/26/16 21:31 85 11/26/16 21:26 85 23 146/90 96 11/26/16 21:21 82 19 176/104 98 11/26/16 21:16 78 21 172/77 96 11/26/16 21:11 79 22 172/89 97 11/26/16 21:06 92 19 162/111 97 11/26/16 21:01 88 21 197/99 98 11/26/16 21:00 181/133 11/26/16 20:58 93 20 98 11/26/16 20:56 191/81 11/26/16 20:35 93 Room Air 11/26/16 20:29 36.9 108 16 184/96 93 Room Air Lab Results: Results Past 24 Hours Test 11/26/16 20:00 11/26/16 20:43 11/26/16 20:51 11/27/16 03:40 Range/Units White Blood Count 7.65 4.8-10.8 K/uL Red Blood Count 4.62 4.7-6.1 M/uL Hemoglobin 15.0 14.0-18.0 g/dL Hematocrit 43.4 42-52 % Mean Corpuscular Volume 93.9 80-100 fL Mean Corpuscular Hemoglobin 32.5 25-34 pg Mean Corpuscular Hemoglobin Concent 34.6 32-36 g/dl Platelet Count 210 130-400 K/uL Mean Platelet Volume 9.3 7.4-10.4 fL Neutrophils (%) (Auto) 63.0 % Lymphocytes (%) (Auto) 23.9 % Monocytes (%) (Auto) 12.0 % Eosinophils (%) (Auto) 0.5 % Basophils (%) (Auto) 0.3 % Neutrophils # (Auto) 4.82 1.4-6.5 K/uL Lymphocytes # (Auto) 1.83 1.2-3.4 K/uL Monocytes # (Auto) 0.92 0.11-0.59 K/uL Eosinophils # (Auto) 0.04 0-0.5 K/uL Basophils # (Auto) 0.02 0-0.2 K/uL RDW Standard Deviation 47.2 36.4-46.3 fL RDW Coefficient of Variation 13.7 11.5-14.5 % Immature Granulocyte % (Auto) 0.3 % Immature Granulocyte # (Auto) 0.02 0.00-0.02 K/uL Prothrombin Time 11.2 9.0-12.0 SECONDS Prothromb Time International Ratio 1.0 0.9-1.1 Activated Partial Thromboplast Time 29.1 21.0-31.0 SECONDS Partial Thromboplastin Ratio 1.1 Sodium Level 141 136-145 mmol/L Potassium Level 3.4 3.5-5.1 mmol/L Chloride Level 105 98-107 mmol/L Carbon Dioxide Level 28 21-32 mmol/L Anion Gap 8.0 15.0 16-25 mmol/L Blood Urea Nitrogen 55 7-18 mg/dl Creatinine 4.40 0.60-1.40 mg/dl Est Creatinine Clear Calc Drug Dose 18.8 ml/min Estimated GFR () 14.1 Estimated GFR (Non- 12.1 BUN/Creatinine Ratio 12.5 10-20 Random Glucose 101 70-99 mg/dl Calcium Level 9.2 8.5-10.1 mg/dl Total Creatine Kinase 97 39-308 U/L Creatine Kinase MB 3.9 0.5-3.6 ng/ml Creatine Kinase MB Ratio 4.0 0-3.0 Troponin I 2.240 0-0.045 ng/ml Bedside Glucose 102 70-99 mg/dl Bedside Hemoglobin 15.0 14.0-18.0 g/dl Bedside Hematocrit 44 42-52 % Bedside Sodium 142 135-144 mEq/L Bedside Potassium 3.3 3.3-5.0 mEq/L Bedside Chloride 104 101-112 mEq/L Bedside Total CO2 28 24-31 mEq/l Bedside Blood Urea Nitrogen 54 7-18 mg/dl Bedside Creatinine 4.2 0.6-1.3 mg/dl Bedside Glucose (other) 99 70-99 mg/dl Bedside Ionized Calcium (Delfina) 1.12 1.12-1.32 mmol/l Urine Color YELLOW Urine Appearance CLEAR CLEAR Urine pH 6.0 4.5-7.5 Urine Specific [place] 1.013 1.000-1.030 Urine Protein 2+ NEG Urine Glucose (UA) NEG NEG Urine Ketones NEG NEG Urine Occult Blood 1+ NEG Urine Nitrite NEG NEG Urine Bilirubin NEG NEG Urine Urobilinogen NEG NEG Urine Leukocyte Esterase NEG NEG Urine WBC (Auto) 1-5 0-5 /hpf Urine RBC (Auto) 0-4 0-4 /hpf Urine Hyaline Casts (Auto) 1-5 0-5 /lpf Urine Epithelial Cells (Auto) 10-20 0-5 /lpf Urine Bacteria (Auto) NEG NEG Test 11/27/16 03:50 11/27/16 10:20 Range/Units White Blood Count 7.80 4.8-10.8 K/uL Red Blood Count 4.34 4.7-6.1 M/uL Hemoglobin 14.0 14.0-18.0 g/dL Hematocrit 40.5 42-52 % Mean Corpuscular Volume 93.3 80-100 fL Mean Corpuscular Hemoglobin 32.3 25-34 pg Mean Corpuscular Hemoglobin Concent 34.6 32-36 g/dl Platelet Count 185 130-400 K/uL Mean Platelet Volume 9.2 7.4-10.4 fL Neutrophils (%) (Auto) 69.1 % Lymphocytes (%) (Auto) 21.2 % Monocytes (%) (Auto) 8.5 % Eosinophils (%) (Auto) 1.0 % Basophils (%) (Auto) 0.1 % Neutrophils # (Auto) 5.39 1.4-6.5 K/uL Lymphocytes # (Auto) 1.65 1.2-3.4 K/uL Monocytes # (Auto) 0.66 0.11-0.59 K/uL Eosinophils # (Auto) 0.08 0-0.5 K/uL Basophils # (Auto) 0.01 0-0.2 K/uL RDW Standard Deviation 46.0 36.4-46.3 fL RDW Coefficient of Variation 13.5 11.5-14.5 % Immature Granulocyte % (Auto) 0.1 % Immature Granulocyte # (Auto) 0.01 0.00-0.02 K/uL Sodium Level 142 136-145 mmol/L Potassium Level 3.2 3.5-5.1 mmol/L Chloride Level 107 98-107 mmol/L Carbon Dioxide Level 25 21-32 mmol/L Anion Gap 10.0 3-11 mmol/L Blood Urea Nitrogen 59 7-18 mg/dl Creatinine 4.30 0.60-1.40 mg/dl Est Creatinine Clear Calc Drug Dose 18.5 ml/min Estimated GFR () 14.5 Estimated GFR (Non- 12.5 BUN/Creatinine Ratio 13.6 10-20 Random Glucose 95 70-99 mg/dl Estimated Average Glucose 111 mg/dl Hemoglobin A1c 5.5 4.5-5.6 % Calcium Level 8.5 8.5-10.1 mg/dl Total Creatine Kinase 95 88 39-308 U/L Creatine Kinase MB 4.5 0.5-3.6 ng/ml Creatine Kinase MB Ratio 4.7 0-3.0 Troponin I 2.160 0-0.045 ng/ml Triglycerides Level 155 0-150 mg/dl Cholesterol Level 135 0-200 mg/dl HDL Cholesterol 38 mg/dl LDL Cholesterol, Calculated 66 mg/dl VLDL Cholesterol, Calculated 31 mg/dl Cholesterol/HDL Ratio 3.6 Microbiology Results 11/27/16 MRSA DNA Surveillance Screen - Final, Complete Specimen Positive for MRSA by DNA Probe
[2016-11-27] MEDS: METOPROLOL TARTRATE 25 MG TAB PO SCH (21:00)
[2016-11-27] MEDS ORDERED: ASPIRIN 81 MG ECTAB PO SCH (21:00)
[2016-11-28] VITALS (16 sets, daily range): BP systolic 115–153; BP diastolic 61–100; PULSE 81–97; TEMP 36.6–36.7; O2SAT 91–100
[2016-11-28] MEDS: LACTOBACILLUS ACIDOPHILUS (FLORANEX) TAB PO SCH ×3 (07:38→17:01)
[2016-11-28 07:55] LABS: BASO % 0.1 %; BASO ABS # 0.01 K/uL (0-0.2); COMPLETE YES; EOS % 0.8 %; HEMATOCRIT 43.2 % (42-52); IG% 0.3 %; LYMPH ABS # 1.05 K/uL (1.2-3.4); MEAN CELL VOLUME 94.7 fL (80-100); MEAN CORPUSCULAR HEMOGLOBIN 31.8 pg (25-34); MEAN CORPUSCULAR HGB CONC 33.6 g/dl (32-36); MEAN PLATELET VOLUME 9.3 fL (7.4-10.4); MONO % 13.2 %; NEUT % 71.6 %; PLATELET COUNT 165 K/uL (130-400); RED BLOOD COUNT 4.56 M/uL (4.7-6.1); WHITE BLOOD COUNT 7.48 K/uL (4.8-10.8)
[2016-11-28 08:09] LABS: CREATININE 3.9 mg/dl (0.60-1.40); POTASSIUM 3.5 mmol/L (3.5-5.1)
[2016-11-28] MEDS: METOPROLOL TARTRATE 25 MG TAB PO SCH (08:55)
[2016-11-28] MEDS: VANCOMYCIN HCL 125 MG/2.5ML SOLN PO SCH (08:55)
[2016-11-28] MEDS: ATORVASTATIN 40 MG TAB PO SCH (08:55)
[2016-11-28] MEDS: MULTIVITAMIN TAB PO SCH (08:55)
[2016-11-28] MEDS: RASPBERRY SYRUP 5 ML UDP PO SCH (08:55)
[2016-11-28] MEDS ORDERED: FUROSEMIDE 20 MG TAB PO SCH (09:00)
--- NOTE | 2016-11-28 09:26 | Cardiology Follow-Up ---
Subjective Subjective Date of Service: Nov 28, 2016. Pt evaluation today including: conversation w/ patient, physical exam, chart review, lab review, review of studies, review of inpatient medication list Additional Details: Pt seen and examined, feeling very well. Articulating well and no right sided deficits remain. Denies cp, sob, palpitations, lightheadedness or dizziness. Tele reviewed: atrial fibrillation 80's-120's. Problem List Medical Problems: (1) CVA (cerebral vascular accident) Status: Acute (2) Elevated troponin Status: Acute Review of Systems Respiratory: No see HPI, No cough, No sputum, No wheezing, No shortness of breath, No dyspnea on exertion, No dyspnea at rest, No hemoptysis, No problem reported Cardiac: No see HPI, No chest pain, No orthopnea, No PND, No edema, No claudication, No palpitations, No problem reported Objective Vital Signs Last Vital Signs Documentation Date Time Temp Pulse Resp B/P (MAP) Pulse Ox O2 Delivery O2 Flow Rate FiO2 11/28/16 06:02 97 18 124/91 (102) 93 Room Air 11/28/16 05:42 2.0 11/28/16 05:01 36.6 Physical Exam: General Appearance: WD/WN, no apparent distress Eyes: bilateral eyes normal inspection, bilateral eyes PERRL, bilateral eyes EOMI ENT: normal ENT inspection, hearing grossly normal, pharynx normal Neck: supple, no adenopathy, thyroid normal, no JVD Respiratory/Chest: chest non-tender, lungs clear, normal breath sounds, no respiratory distress, no accessory muscle use Cardiovascular: no edema, no gallop, no JVD, no murmur, + irregularly irregular Abdomen: normal bowel sounds, non tender, soft, no organomegaly, no pulsatile mass Extremities: normal inspection, no pedal edema, no calf tenderness Neurologic/Psychiatric: phys assistant II-XII nml as tested, no motor/sensory deficits, alert, normal mood/affect, oriented x 3, + pertinent finding (slight dysarthria) Skin: normal color, warm/dry, no rash Lymphatic: no adenopathy Assessment and Plan 1. CVA s/p TPA following protocol will initiate anticoagulation once acceptable risk as per neurology for repeat CT of head today 2. atrial fibrillation new onset likely source of embolism rates remains a little elevated will start cardizem po now and follow closely will avoid beta blockers given need for permissive hypertension 3. CAD stable
[2016-11-28] MEDS ORDERED: DILTIAZEM HCL 30 MG TAB PO ONE (09:30)
--- NOTE | 2016-11-28 11:20 | DIAGNOSTIC IMAGING REPORT ---
HEAD WITHOUT CONTRAST (CT) CLINICAL HISTORY: 76 years-old Male presenting with 24 hours follow-up TPA, sx L hemisphere. TECHNIQUE: Multidetector CT imaging of the head was performed without the use of intravenous contrast. IV contrast: None. A dose lowering technique was used consistent with the principles of ALARA (as low as reasonably achievable). COMPARISON: 11/27/2016. CT DOSE (mGy.cm): The estimated cumulative dose is 537.48 mGy.cm. FINDINGS: Marketing Forecaster topogram: Unremarkable. Proportional ventricular and sulcal prominence, likely age-related parenchymal volume loss. Again demonstrated are chronic infarcts in the paramedian left occipital lobe and right cerebellar hemisphere. No mass effect or midline shift. No hemorrhage or acute territorial infarct. No extra-axial fluid collection. Paranasal sinuses and mastoid air cells clear. Calvarium intact. Bilateral [place] lenses of the globes are absent. IMPRESSION: 1. No acute intracranial pathology. No hemorrhage. 2. Chronic infarcts in the right cerebellar and left occipital regions, unchanged. Electronically signed by: Luis Lockhart M.D. 11/28/2016 11:19 AM Dictated Date/Time: 11/28/2016 11:15 AM
--- NOTE | 2016-11-28 12:13 | PROGRESS NOTE ---
DATE: 11/28/2016 SUBJECTIVE: I am seeing Mr. Mcmahan in followup of ischemic symptoms in the left hemisphere with aphasia and mild right hemiparesis. The patient received TPA approximately 9 hours after intermittent neurologic symptoms began. He was improving as the infusion was running. I saw him yesterday. He still had a fairly impressive aphasia with some disfluency and mild right hemiparesis. His MRI of the brain showed no infarction. Carotid ultrasound showed extensive plaque and right vertebral stenosis. No significant stenosis of the right internal carotid and no significant stenosis in the left internal carotid. He is newly in atrial fibrillation. A CT performed after I saw him today was unremarkable showing an old left occipital and right cerebellar infarcts. No hemorrhages noted. PHYSICAL EXAMINATION: On today's exam, having seen him after speech and discussing with speech, he is awake, alert and oriented. He still has some hesitancy of speech. His naming is adequate. He follows a 3-step command. He can count fingers and tell me the number of fingers. He has much more fluent speech. I detect no field cut. No facial asymmetry. No dysarthria. I do not appreciate any significant hemiparesis. IMPRESSION: Clinically, the patient presented with a stuttering course of ischemia in the left MCA and surprisingly, his imaging has shown no infarctions. Seizure is within the differential, although I think it is unlikely. If he was not improved markedly, I would do an EEG today. We will otherwise do a routine EEG tomorrow. Even if there was a seizure that at this point would not be a contraindication to anticoagulation with Coumadin. As the patient has been in atrial fibrillation, would start him on Coumadin without heparin. We will follow with you. RUDDY
--- NOTE | 2016-11-28 12:24 | Nephrology Consultation ---
Nephrology Consultation Date & Providers Date of Consultation: Nov 28, 2016. Primary Care Provider: Lamin Malcolm M.D. Referring Provider: Reason for Consultation Evaluation and management for acute kidney injury with history of chronic kidney disease. History of Present Illness Mr. Mcmahan is a 76-year-old gentlemen with past medical history significant for hypertension, CAD, peripheral vascular disease and stage 4 chronic kidney disease admitted to the hospital with acute stroke. Nephrologic consult was requested as he developed acute kidney injury. Electronic medical records were reviewed in detail during patient's visit. Mr. Mcmahan presented to the emergency room on 11/26/2016 with an episode of fall due to right-sided weakness and inability to speak which happened at 7:30 p.m.. By the time he presented to the emergency room his symptom already started to improve. CT head was negative for any acute intracranial abnormality but showed evidence of prior CVA. [facility] stroke team was consulted who advised against tPA. He was admitted to the hospital for observation. 5 a.m. following morning he again developed acute right-sided weakness and difficulty with language and this time he was given tPA as per stroke team recommendation. MRI was negative again for any acute stroke. He had repeat CT scan this morning which did not show any evidence of intracranial bleeding. His symptoms improve significantly, right-sided weakness resolved, still has some word- finding difficulty but speech improved significantly as well. His blood pressure remained well control, denies any shortness of breath, chest pain. 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 Rodrigues. Initially he was treated with 12 weeks course of steroid and proteinuria improved to around 1 gram. Renal function progressively worsen and creatinine stabilized around 2. Lately creatinine has been worsening and staying around 3.0. He had right radiocephalic AV fistula placed on 09/06 at [facility] which is currently mature with good thrill and bruit. No significant evidence of anemia, hyperkalemia, metabolic acidosis. Has mild secondary hyperparathyroidism. Has been avoiding NSAIDs, trying to follow low-salt diet. On admission he was found to have acute kidney injury, creatinine was 4.4, most likely hemodynamically mediated, creatinine started to improve and was 3.9 this morning. All electrolyte and blood pressure acceptable. Volume status acceptable. He has been non-oliguric. Has coronary artery disease and significant peripheral vascular disease, previously had CABG and multiple stent and PTCA in lower extremity arteries. Has history of atrial flutter, previously had ablation done and has been aspirin and Plavix. Has prior history of GI bleeding. Has history of chronic C diff colitis, follows with ID has been on oral vancomycin Allergies Coded Allergies: No Known Allergies (Verified , 09/20/16) Inpatient Medications Current Inpatient Medications Medications (Trade) Dose Ordered Sig/Maria Guadalupe Route Start Time Stop Time Status Last Admin Dose Admin Miscellaneous Information (Pharmacist Discharge Med Rec Consult) 1 ea UD PRN N/A 11/26/16 22:45 12/26/16 22:44 Ondansetron HCl (Zofran Inj) 4 mg Q6H PRN IV 11/26/16 22:45 12/26/16 22:44 Morphine Sulfate (MoRPHine SULFATE INJ) 2 mg Q30M PRN IV 11/26/16 22:45 12/10/16 22:44 Vancomycin HCl (Vancomycin Oral Soln) 125 mg DAILY PO 11/28/16 09:00 12/28/16 08:59 11/28/16 08:55 125 MG Raspberry (Raspberry Syrup 5ml Cup) 5 ml DAILY PO 11/28/16 09:00 12/27/16 08:59 11/28/16 08:55 5 ML Furosemide (Lasix Tab) 20 mg QAM PO 11/28/16 09:00 12/28/16 08:59 11/28/16 08:55 20 MG Lactobacillus Acidophilus (Floranex Tab) 4 tab TIDM PO 11/28/16 07:15 12/28/16 07:14 11/28/16 10:51 4 TAB Atorvastatin Calcium (Lipitor Tab) 80 mg QAM PO 11/28/16 09:00 12/28/16 08:59 11/28/16 08:55 80 MG Multivitamins (Multivitamin Tab) 1 tab QAM PO 11/28/16 09:00 12/28/16 08:59 11/28/16 08:55 1 TAB Diltiazem HCl (Cardizem Tab) 30 mg TID PO 11/28/16 14:00 12/28/16 13:59 Family History Diabetes mellitus FH: heart disease Social History Smoking Status: Unknown if Ever Smoked Smokeless Tobacco Use: No Alcohol Use: socially Drug Use: none Marital Status: Housing Status: lives with significant other Occupation: retired Review of Systems A complete review of systems was performed. Pertinent positives are noted above. All other systems are negative. Physical Exam Date Time Temp Pulse Resp B/P (MAP) Pulse Ox O2 Delivery O2 Flow Rate FiO2 11/28/16 10:00 84 16 125/77 (93) 99 Room Air 11/28/16 08:00 Nasal Cannula 11/28/16 08:00 36.7 90 20 142/95 (111) 99 Room Air 11/28/16 06:02 97 18 124/91 (102) 93 Room Air 11/28/16 05:42 90 20 153/68 (96) 96 Nasal Cannula 2.0 11/28/16 05:01 36.6 94 18 152/100 (117) 97 Nasal Cannula 2.0 11/28/16 04:01 91 18 131/98 (109) 99 Nasal Cannula 2.0 11/28/16 04:00 Nasal Cannula 2.0 11/28/16 03:01 86 17 131/86 (101) 99 Nasal Cannula 2.0 11/28/16 02:01 87 18 146/89 (108) 97 Nasal Cannula 2.0 11/28/16 01:01 85 15 143/64 (90) 97 Nasal Cannula 2.0 11/28/16 00:01 36.6 85 15 141/78 (99) 100 Nasal Cannula 2.0 11/27/16 23:59 Nasal Cannula 2.0 11/27/16 23:01 86 18 158/89 (112) 99 11/27/16 23:01 86 18 158/89 (112) 99 Nasal Cannula 2.0 11/27/16 22:05 85 19 167/94 (118) 98 11/27/16 22:05 85 19 167/94 (118) 98 Nasal Cannula 2.0 11/27/16 21:01 89 21 163/83 (109) 97 Nasal Cannula 2.0 11/27/16 21:01 89 21 163/83 (109) 97 11/27/16 20:01 79 20 167/86 (113) 98 11/27/16 20:01 36.4 79 20 167/86 (113) 98 Nasal Cannula 2.0 11/27/16 20:00 Nasal Cannula 2.0 11/27/16 19:01 97 18 134/94 (107) 99 11/27/16 19:00 86 22 134/94 (107) 97 Nasal Cannula 2.0 11/27/16 18:00 87 20 140/71 (94) 96 Nasal Cannula 2.0 11/27/16 18:00 87 20 140/71 (94) 96 Nasal Cannula 2.0 11/27/16 17:00 87 22 165/89 (114) 97 Nasal Cannula 2.0 11/27/16 16:00 84 22 149/83 (105) 97 Nasal Cannula 2.0 11/27/16 16:00 Nasal Cannula 2.0 11/27/16 16:00 84 22 149/83 (105) 97 Nasal Cannula 2.0 11/27/16 15:00 115 22 166/89 (114) 98 Nasal Cannula 2.0 11/27/16 14:00 112 22 156/91 (112) 98 Nasal Cannula 2.0 11/27/16 14:00 112 22 156/91 (112) 98 Nasal Cannula 2.0 11/27/16 13:30 96 18 156/91 (112) 98 Nasal Cannula 2.0 11/27/16 13:00 88 18 123/87 (99) 99 Nasal Cannula 2.0 11/27/16 12:30 92 16 131/77 (95) 100 Nasal Cannula 2.0 GENERAL: Elderly male AAA x 3, pleasant, healthy-appearing, not in any distress. HEENT: Atraumatic, normocephalic. NECK: Supple, no JVD, no carotid bruit appreciated. ENT: No sinus tenderness MOUTH and THROAT: Moist oral mucosa, no oral ulcer or pharyngeal erythema RESPIRATORY: Normal breathing efforts, no accessory muscle use, clear to auscultation bilaterally, no wheezes or rales. CARDIOVASCULAR: S1, S2 normal, rate rhythm regular. ABDOMEN: Soft, nontender, positive bowel sound. MUSCULOSKELETAL: No CVA tenderness. No joint swelling, erythema or tenderness. Normal range of motion. SKIN: No skin rash EXTREMITY: No lower extremity edema, right radiocephalic AV fistula with thrill and bruit. NEURO: No gross focal neurological deficit. No weakness in extremities. Has mild word-finding difficulty. PSYCHIATRY: Normal mood and judgment Laboratory Results Last 24 Hours Test 11/28/16 07:17 White Blood Count 7.48 K/uL Red Blood Count 4.56 M/uL Hemoglobin 14.5 g/dL Hematocrit 43.2 % Mean Corpuscular Volume 94.7 fL Mean Corpuscular Hemoglobin 31.8 pg Mean Corpuscular Hemoglobin Concent 33.6 g/dl Platelet Count 165 K/uL Mean Platelet Volume 9.3 fL Neutrophils (%) (Auto) 71.6 % Lymphocytes (%) (Auto) 14.0 % Monocytes (%) (Auto) 13.2 % Eosinophils (%) (Auto) 0.8 % Basophils (%) (Auto) 0.1 % Neutrophils # (Auto) 5.35 K/uL Lymphocytes # (Auto) 1.05 K/uL Monocytes # (Auto) 0.99 K/uL Eosinophils # (Auto) 0.06 K/uL Basophils # (Auto) 0.01 K/uL RDW Standard Deviation 47.3 fL RDW Coefficient of Variation 13.7 % Immature Granulocyte % (Auto) 0.3 % Immature Granulocyte # (Auto) 0.02 K/uL Sodium Level 144 mmol/L Potassium Level 3.5 mmol/L Chloride Level 110 mmol/L Carbon Dioxide Level 26 mmol/L Anion Gap 9.0 mmol/L Blood Urea Nitrogen 51 mg/dl Creatinine 3.90 mg/dl Est Creatinine Clear Calc Drug Dose 20.4 ml/min Estimated GFR () 16.3 Estimated GFR (Non- 14.0 BUN/Creatinine Ratio 13.0 Random Glucose 96 mg/dl Calcium Level 9.0 mg/dl Impression (1) Acute kidney injury (2) Chronic kidney disease, stage IV (severe) (3) CVA (cerebral vascular accident) (4) HTN (hypertension) 76-year-old 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 CT scan, MRI and repeat CT this morning was negative and no evidence of intracranial bleed. Blood pressure has been well controlled. On admission he was found to have acute kidney injury creatinine was 4.4 with baseline creatinine around 3.0. Creatinine slightly started to improve and was 3.9 this morning, other electrolyte remain acceptable. No hypotensive episode. Hemoglobin stable. Electrolyte and volume status stable. Blood pressure well controlled. Acute kidney injury most likely hemodynamically mediated, started to improve, slowly. Remain non-oliguric. Recommendations --renal function slowly started to improve, volume status, electrolyte and blood pressure acceptable --will hold diuretics for now while recovering from acute kidney injury as there is no sign of significant volume overload --avoid nephrotoxic medications --will monitor renal function closely with daily renal panel --patient has mature AV fistula however there is no acute indication for dialysis and hopefully renal function will continued to improve and stabilize --patient probably will need to be on anticoagulation for AFib/a flutter Thank you for the consultation, it was a pleasure to see Kimberly Jaquezalvaro, will follow.
[2016-11-28] MEDS: DILTIAZEM HCL 30 MG TAB PO SCH ×2 (13:51→20:46)
[2016-11-28] MEDS: WARFARIN SOD 5 MG TAB PO SCH (17:00)
--- NOTE | 2016-11-28 18:16 | Critical Care Progress Note ---
Critical Care Progress Note Date of Service Nov 28, 2016. Attending Dr. Tonie Bray I personally examined this patient, reviewed his clinical and laboratory data, interpreted his x-ray and formulated further plan of care. In summary, the patient is a 76 old gentleman with extensive medical history including TIA, peripheral vascular disease, coronary artery disease, status post CABG who was admitted to the hospital yesterday with right-sided weakness and expressive aphasia. No TPA was given as symptoms resolve spontaneously. Initial CT scan from yesterday revealed no acute intracranial pathology, multiple old infarcts in the right cerebellar hemisphere, per medial left occipital lobe, right occipital lobe, lacunar infarct in the left basal ganglia. Ultrasound revealed extensive mixed plaquing of the bilateral carotid vasculature, significant stenosis of the left internal carotid artery was no longer identified. Stroke alert was called 5 am for new episode of right-sided weakness and aphasia. Urgently repeated CT scan again revealed no acute intracranial abnormality. Patient was urgently transferred critically ill to surgical intensive care unit. After urgent consultation with stroke neurology patient was given TPA (11/27). Uneventful night. Significant improvement of right-sided weakness and aphasia. Objective General Appearance: Elderly man in no apparent distress laying in the bed Head: normocephalic, atraumatic Eyes: PERRLA, no discharge, EOMI, sclerae normal, conjunctivae normal ENT: normal ear exam, normal nasal exam Neck: normal range of motion, no tenderness, trachea midline, no stridor, supple Respiratory: breath sounds normal, clear to auscultation, clear to percussion Cardiovasular: irregular rate, normal S1-S2, no S3 Abdomen: non tender, normal bowel sounds, no masses, no guarding, no organomegaly Back: normal inspection, no midline tenderness, no CVA tenderness Upper Extremities: no edema Lower Extremities: no edema Neuro: alert,, awake, oriented 3. Muscle strength on the right side is extremely close to normal. Speech is much more fluent still somewhat slow. Face was symmetric. Assessment & Plan 1. Acute stroke clinically presenting in left MCA territory even though CT and MRI of the brain did not reveal any acute ischemia or hemorrhage. Significant clinical improvement, miniscule residual weakness on the right, significant improvement in dysarthria. As per neurology, seizure would be on the list of differential diagnoses even though it's less likely. Awaiting for EEG in the morning. 2. Atrial fibrillation. Coumadin was restarted as CT did not reveal any bleeding. 3. Coronary artery disease, history of CABG. Leak of troponin is likely due to renal failure and demand ischemia. 4. Acute on chronic kidney disease. Mild hypokalemia replaced, improving creatinine. 5. 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 6. Hematology: Hemoglobin and coagulation profile in the range 8. GI prophylaxis 9. Patient is full code. Patient has improved significantly, so we'll change his status to telemetry. [id number] note. [place] II Score Date Score Was Generated: Nov 28, 2016 Consults & Procedures Consultants: Critical care medicine, neurology, cardiology, nephrology. Procedures: tPA administration on 11/27/2016. Data Medications: Current Inpatient Medications Medications (Trade) Dose Ordered Sig/Maria Guadalupe Route Start Time Stop Time Status Last Admin Dose Admin Miscellaneous Information (Pharmacist Discharge Med Rec Consult) 1 ea UD PRN N/A 11/26/16 22:45 12/26/16 22:44 Ondansetron HCl (Zofran Inj) 4 mg Q6H PRN IV 11/26/16 22:45 12/26/16 22:44 Morphine Sulfate (MoRPHine SULFATE INJ) 2 mg Q30M PRN IV 11/26/16 22:45 12/10/16 22:44 Vancomycin HCl (Vancomycin Oral Soln) 125 mg DAILY PO 11/28/16 09:00 12/28/16 08:59 11/28/16 08:55 125 MG Raspberry (Raspberry Syrup 5ml Cup) 5 ml DAILY PO 11/28/16 09:00 12/27/16 08:59 11/28/16 08:55 5 ML Lactobacillus Acidophilus (Floranex Tab) 4 tab TIDM PO 11/28/16 07:15 12/28/16 07:14 11/28/16 17:01 4 TAB Atorvastatin Calcium (Lipitor Tab) 80 mg QAM PO 11/28/16 09:00 12/28/16 08:59 11/28/16 08:55 80 MG Multivitamins (Multivitamin Tab) 1 tab QAM PO 11/28/16 09:00 12/28/16 08:59 11/28/16 08:55 1 TAB Diltiazem HCl (Cardizem Tab) 30 mg TID PO 10/8/17 14:00 12/28/16 13:59 11/28/16 13:51 30 MG Warfarin Sodium (Coumadin Tab) 5 mg DAILY@16 PO 11/28/16 16:00 12/28/16 15:59 11/28/16 17:00 5 MG I & O: 24-Hour Column 11/29/16 08:00 Intake Total 370 ml Output Total 750 ml Balance -380 ml Vital Signs: Date Time Temp Pulse Resp B/P (MAP) Pulse Ox O2 Delivery O2 Flow Rate FiO2 11/28/16 16:00 36.6 86 16 115/74 (88) 99 Room Air 11/28/16 16:00 Room Air 11/28/16 14:36 87 11/28/16 14:00 93 20 121/61 (81) 99 Room Air 11/28/16 12:00 Room Air 11/28/16 12:00 36.7 81 16 131/64 (86) 99 Room Air 11/28/16 10:00 84 16 125/77 (93) 99 Room Air 11/28/16 08:00 Room Air 11/28/16 08:00 36.7 90 20 142/95 (111) 99 Room Air 11/28/16 06:02 97 18 124/91 (102) 93 Room Air 11/28/16 05:42 90 20 153/68 (96) 96 Nasal Cannula 2.0 11/28/16 05:01 36.6 94 18 152/100 (117) 97 Nasal Cannula 2.0 11/28/16 04:01 91 18 131/98 (109) 99 Nasal Cannula 2.0 11/28/16 04:00 Nasal Cannula 2.0 11/28/16 03:01 86 17 131/86 (101) 99 Nasal Cannula 2.0 11/28/16 02:01 87 18 146/89 (108) 97 Nasal Cannula 2.0 11/28/16 01:01 85 15 143/64 (90) 97 Nasal Cannula 2.0 11/28/16 00:01 36.6 85 15 141/78 (99) 100 Nasal Cannula 2.0 11/27/16 23:59 Nasal Cannula 2.0 11/27/16 23:01 86 18 158/89 (112) 99 11/27/16 23:01 86 18 158/89 (112) 99 Nasal Cannula 2.0 11/27/16 22:05 85 19 167/94 (118) 98 11/27/16 22:05 85 19 167/94 (118) 98 Nasal Cannula 2.0 11/27/16 21:01 89 21 163/83 (109) 97 Nasal Cannula 2.0 11/27/16 21:01 89 21 163/83 (109) 97 11/27/16 20:01 79 20 167/86 (113) 98 11/27/16 20:01 36.4 79 20 167/86 (113) 98 Nasal Cannula 2.0 11/27/16 20:00 Nasal Cannula 2.0 11/27/16 19:01 97 18 134/94 (107) 99 11/27/16 19:00 86 22 134/94 (107) 97 Nasal Cannula 2.0 Laboratory Results: Last 24 Hours Test 11/28/16 07:17 11/28/16 11:54 White Blood Count 7.48 K/uL Red Blood Count 4.56 M/uL Hemoglobin 14.5 g/dL Hematocrit 43.2 % Mean Corpuscular Volume 94.7 fL Mean Corpuscular Hemoglobin 31.8 pg Mean Corpuscular Hemoglobin Concent 33.6 g/dl Platelet Count 165 K/uL Mean Platelet Volume 9.3 fL Neutrophils (%) (Auto) 71.6 % Lymphocytes (%) (Auto) 14.0 % Monocytes (%) (Auto) 13.2 % Eosinophils (%) (Auto) 0.8 % Basophils (%) (Auto) 0.1 % Neutrophils # (Auto) 5.35 K/uL Lymphocytes # (Auto) 1.05 K/uL Monocytes # (Auto) 0.99 K/uL Eosinophils # (Auto) 0.06 K/uL Basophils # (Auto) 0.01 K/uL RDW Standard Deviation 47.3 fL RDW Coefficient of Variation 13.7 % Immature Granulocyte % (Auto) 0.3 % Immature Granulocyte # (Auto) 0.02 K/uL Sodium Level 144 mmol/L Potassium Level 3.5 mmol/L Chloride Level 110 mmol/L Carbon Dioxide Level 26 mmol/L Anion Gap 9.0 mmol/L Blood Urea Nitrogen 51 mg/dl Creatinine 3.90 mg/dl Est Creatinine Clear Calc Drug Dose 20.4 ml/min Estimated GFR () 16.3 Estimated GFR (Non- 14.0 BUN/Creatinine Ratio 13.0 Random Glucose 96 mg/dl Calcium Level 9.0 mg/dl Bedside Glucose 114 mg/dl
--- NOTE | 2016-11-28 19:58 | Progress Note ---
Medicine Progress Note Date & Time of Visit: Nov 28, 2016 at 19:58. Subjective Pt was seen and examined Lying in bed with no distress with at bedside pt said that he feels much better he said that his strength in his extremities improved denies any chest pain, palpitation, dizziness and sob Objective Last 8 Hrs Date Time Temp Pulse Resp B/P (MAP) Pulse Ox O2 Delivery O2 Flow Rate FiO2 11/28/16 18:00 84 12 131/89 (103) 97 Room Air 11/28/16 16:00 36.6 86 16 115/74 (88) 99 Room Air 11/28/16 16:00 Room Air 11/28/16 14:36 87 11/28/16 14:00 93 20 121/61 (81) 99 Room Air 11/28/16 12:00 Room Air 11/28/16 12:00 36.7 81 16 131/64 (86) 99 Room Air Physical Exam: General- no acute distress Head- atraumatic Eyes- PERRL, EOMI ENT- oropharynx clear Neck- supple, no JVD Lungs- clear to auscultation Heart- irregular rhythm Abdomen- normal bowel sounds, soft Extremities-no calf tenderness Neuro- alert, oriented x 3; PERRL, EOMI Skin- warm & dry Laboratory Results: Last 24 Hours Test 11/28/16 07:17 11/28/16 11:54 White Blood Count 7.48 K/uL Red Blood Count 4.56 M/uL Hemoglobin 14.5 g/dL Hematocrit 43.2 % Mean Corpuscular Volume 94.7 fL Mean Corpuscular Hemoglobin 31.8 pg Mean Corpuscular Hemoglobin Concent 33.6 g/dl Platelet Count 165 K/uL Mean Platelet Volume 9.3 fL Neutrophils (%) (Auto) 71.6 % Lymphocytes (%) (Auto) 14.0 % Monocytes (%) (Auto) 13.2 % Eosinophils (%) (Auto) 0.8 % Basophils (%) (Auto) 0.1 % Neutrophils # (Auto) 5.35 K/uL Lymphocytes # (Auto) 1.05 K/uL Monocytes # (Auto) 0.99 K/uL Eosinophils # (Auto) 0.06 K/uL Basophils # (Auto) 0.01 K/uL RDW Standard Deviation 47.3 fL RDW Coefficient of Variation 13.7 % Immature Granulocyte % (Auto) 0.3 % Immature Granulocyte # (Auto) 0.02 K/uL Sodium Level 144 mmol/L Potassium Level 3.5 mmol/L Chloride Level 110 mmol/L Carbon Dioxide Level 26 mmol/L Anion Gap 9.0 mmol/L Blood Urea Nitrogen 51 mg/dl Creatinine 3.90 mg/dl Est Creatinine Clear Calc Drug Dose 20.4 ml/min Estimated GFR () 16.3 Estimated GFR (Non- 14.0 BUN/Creatinine Ratio 13.0 Random Glucose 96 mg/dl Calcium Level 9.0 mg/dl Bedside Glucose 114 mg/dl Assessment & Plan ACUTE CVA WITH RT SIDED WEAKNESS Possible cardioembolic given afib ( new dx was not on anticoagulation )) status post TPA. MRI brain showed no acute intracranial abnormality. 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 Continue Neuro checks Repeat CT done today after 24 hrs post TPA showed no acute ischemia or hemorrhage Neurology on board Will get a EEG PT/OT New onset AFIB pt mentions of being tired /TABARES for past 2 weeks EKG shows Afib with rate controlled On cardizem 30 mg TID Starting on coumadin today after CT was negative for hemorrhage Continue monitor ELEVATED TROPONIN possible due to demand ischemia in setting of rapid afib /acute CVA , CKD stage 4 Hx of CAD S/p CABG Denies any chest pain Continue statin Cardiology on board CKD STAGE 4 no evidence of vol overload Continue holding diuretic follows with Nephrology D Donelen Creatine slowly imprrove Avoid nephrotoxic agent Nephrology on board DVT PROPHYLAXIS scd and teds starting on coumadin DISPOSITION continue PT/Ot pt will benefit with acute rehab after discharge from hospital Transfer to [facility] Consultants: Cardio Nephro Neuro Current Inpatient Medications: Current Inpatient Medications Medications (Trade) Dose Ordered Sig/Maria Guadalupe Route Start Time Stop Time Status Last Admin Dose Admin Miscellaneous Information (Pharmacist Discharge Med Rec Consult) 1 ea UD PRN N/A 11/26/16 22:45 12/26/16 22:44 Ondansetron HCl (Zofran Inj) 4 mg Q6H PRN IV 11/26/16 22:45 12/26/16 22:44 Morphine Sulfate (MoRPHine SULFATE INJ) 2 mg Q30M PRN IV 11/26/16 22:45 12/10/16 22:44 Vancomycin HCl (Vancomycin Oral Soln) 125 mg DAILY PO 11/28/16 09:00 12/28/16 08:59 11/28/16 08:55 125 MG Raspberry (Raspberry Syrup 5ml Cup) 5 ml DAILY PO 11/28/16 09:00 12/27/16 08:59 11/28/16 08:55 5 ML Lactobacillus Acidophilus (Floranex Tab) 4 tab TIDM PO 11/28/16 07:15 12/28/16 07:14 11/28/16 17:01 4 TAB Atorvastatin Calcium (Lipitor Tab) 80 mg QAM PO 11/28/16 09:00 12/28/16 08:59 11/28/16 08:55 80 MG Multivitamins (Multivitamin Tab) 1 tab QAM PO 11/28/16 09:00 12/28/16 08:59 11/28/16 08:55 1 TAB Diltiazem HCl (Cardizem Tab) 30 mg TID PO 11/28/16 14:00 12/28/16 13:59 11/28/16 13:51 30 MG Warfarin Sodium (Coumadin Tab) 5 mg DAILY@16 PO 11/28/16 16:00 12/28/16 15:59 11/28/16 17:00 5 MG
[2016-11-29] VITALS (10 sets, daily range): BP systolic 111–125; BP diastolic 67–88; PULSE 73–93; TEMP 36.4–36.9; O2SAT 92–94
[2016-11-29] MEDS ORDERED: ACETAMINOPHEN 325 MG TAB ONE (02:05)
[2016-11-29] MEDS ORDERED: ACETAMINOPHEN 325 MG TAB PO PRN (02:15)
[2016-11-29 06:50] LABS: INR 1.2 (0.9-1.1); PROTHROMBIN TIME (PATIENT) 12.9 SECONDS (9.0-12.0)
[2016-11-29 07:13] LABS: BUN/CREATININE RATIO 13.2 (10-20); CREATININE 3.8 mg/dl (0.60-1.40); POTASSIUM 3.7 mmol/L (3.5-5.1)
[2016-11-29] MEDS: LACTOBACILLUS ACIDOPHILUS (FLORANEX) TAB PO SCH ×3 (07:51→16:50)
[2016-11-29] MEDS: ATORVASTATIN 40 MG TAB PO SCH (07:52)
[2016-11-29] MEDS: DILTIAZEM HCL 30 MG TAB PO SCH ×3 (07:52→20:57)
[2016-11-29] MEDS: RASPBERRY SYRUP 5 ML UDP PO SCH (07:53)
[2016-11-29] MEDS: MULTIVITAMIN TAB PO SCH (07:53)
[2016-11-29 08:35] LABS: BASO % 0.3 %; BASO ABS # 0.02 K/uL (0-0.2); COMPLETE YES; EOS % 1.1 %; HEMATOCRIT 41.8 % (42-52); IG% 0.1 %; LYMPH % 17.7 %; LYMPH ABS # 1.34 K/uL (1.2-3.4); MEAN CELL VOLUME 93.9 fL (80-100); MEAN CORPUSCULAR HEMOGLOBIN 31.9 pg (25-34); MEAN PLATELET VOLUME 9.1 fL (7.4-10.4); MONO % 7.9 %; NEUT % 72.9 %; PLATELET COUNT 183 K/uL (130-400); RED BLOOD COUNT 4.45 M/uL (4.7-6.1); WHITE BLOOD COUNT 7.58 K/uL (4.8-10.8)
[2016-11-29] MEDS: VANCOMYCIN HCL 125 MG/2.5ML SOLN PO SCH (08:43)
--- NOTE | 2016-11-29 09:37 | Progress Note ---
Medicine Progress Note Date & Time of Visit: Nov 29, 2016 at 09:34. Subjective Pt was seen and examined Lying in bed with no distress Pt said that he feels fine he said that he had a good night denies any chest pain, palpitation, dizziness and SOB Objective Last 8 Hrs Date Time Temp Pulse Resp B/P (MAP) Pulse Ox O2 Delivery O2 Flow Rate FiO2 11/29/16 08:54 94 Room Air 11/29/16 08:42 94 Room Air 11/29/16 08:05 36.6 85 16 120/88 (99) 94 Room Air 11/29/16 03:45 36.9 93 18 125/76 (92) 93 Room Air Physical Exam: General- no acute distress Head- atraumatic Eyes- PERRL, EOMI ENT- oropharynx clear Neck- supple, no JVD Lungs- clear to auscultation Heart- irregular rhythm Abdomen- normal bowel sounds, soft Extremities-no calf tenderness Neuro- alert, oriented x 3; PERRL, EOMI Skin- warm & dry Laboratory Results: Last 24 Hours Test 11/28/16 11:54 11/29/16 06:28 11/29/16 08:12 Bedside Glucose 114 mg/dl Prothrombin Time 12.9 SECONDS Prothromb Time International Ratio 1.2 Sodium Level 142 mmol/L Potassium Level 3.7 mmol/L Chloride Level 109 mmol/L Carbon Dioxide Level 23 mmol/L Anion Gap 10.0 mmol/L Blood Urea Nitrogen 50 mg/dl Creatinine 3.80 mg/dl Est Creatinine Clear Calc Drug Dose 20.7 ml/min Estimated GFR () 16.8 Estimated GFR (Non- 14.5 BUN/Creatinine Ratio 13.2 Random Glucose 90 mg/dl Calcium Level 9.0 mg/dl White Blood Count 7.58 K/uL Red Blood Count 4.45 M/uL Hemoglobin 14.2 g/dL Hematocrit 41.8 % Mean Corpuscular Volume 93.9 fL Mean Corpuscular Hemoglobin 31.9 pg Mean Corpuscular Hemoglobin Concent 34.0 g/dl Platelet Count 183 K/uL Mean Platelet Volume 9.1 fL Neutrophils (%) (Auto) 72.9 % Lymphocytes (%) (Auto) 17.7 % Monocytes (%) (Auto) 7.9 % Eosinophils (%) (Auto) 1.1 % Basophils (%) (Auto) 0.3 % Neutrophils # (Auto) 5.53 K/uL Lymphocytes # (Auto) 1.34 K/uL Monocytes # (Auto) 0.60 K/uL Eosinophils # (Auto) 0.08 K/uL Basophils # (Auto) 0.02 K/uL RDW Standard Deviation 47.0 fL RDW Coefficient of Variation 13.7 % Immature Granulocyte % (Auto) 0.1 % Immature Granulocyte # (Auto) 0.01 K/uL Assessment & Plan ACUTE CVA WITH RT SIDED WEAKNESS Possible cardioembolic given afib ( new dx was not on anticoagulation )) status post TPA. MRI brain showed no acute intracranial abnormality. 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 Continue Neuro checks Repeat CT done today after 24 hrs post TPA showed no acute ischemia or hemorrhage Neurology on board EEG done this morning PT/OT D/C roberson to facilitate ambulation Pt is interested to go to rehab New onset AFIB pt mentions of being tired /TABARES for past 2 weeks EKG shows Afib with rate controlled On cardizem 30 mg TID Starting on coumadin yesterday after CT was negative for hemorrhage Continue monitor check PT/INR ELEVATED TROPONIN possible due to demand ischemia in setting of rapid afib /acute CVA , CKD stage 4 Hx of CAD S/p CABG Denies any chest pain Continue statin Cardiology on board CKD STAGE 4 no evidence of vol overload Continue holding diuretic follows with Nephrology D Donelen Creatine slowly imprrove Avoid nephrotoxic agent Nephrology on board DVT PROPHYLAXIS scd and teds on Coumadin DISPOSITION continue PT/Ot pt will benefit with acute rehab after discharge from hospital Transfer to tele Consultants: Cardio Nephro Neuro Current Inpatient Medications: Current Inpatient Medications Medications (Trade) Dose Ordered Sig/Maria Guadalupe Route Start Time Stop Time Status Last Admin Dose Admin Miscellaneous Information (Pharmacist Discharge Med Rec Consult) 1 ea UD PRN N/A 11/26/16 22:45 12/26/16 22:44 Ondansetron HCl (Zofran Inj) 4 mg Q6H PRN IV 11/26/16 22:45 12/26/16 22:44 Morphine Sulfate (MoRPHine SULFATE INJ) 2 mg Q30M PRN IV 11/26/16 22:45 12/10/16 22:44 Vancomycin HCl (Vancomycin Oral Soln) 125 mg DAILY PO 11/28/16 09:00 12/28/16 08:59 11/29/16 08:43 125 MG Raspberry (Raspberry Syrup 5ml Cup) 5 ml DAILY PO 11/28/16 09:00 12/27/16 08:59 11/29/16 07:53 5 ML Lactobacillus Acidophilus (Floranex Tab) 4 tab TIDM PO 11/28/16 07:15 12/28/16 07:14 11/29/16 07:51 4 TAB Atorvastatin Calcium (Lipitor Tab) 80 mg QAM PO 11/28/16 09:00 12/28/16 08:59 11/29/16 07:52 80 MG Multivitamins (Multivitamin Tab) 1 tab QAM PO 11/28/16 09:00 12/28/16 08:59 11/29/16 07:53 1 TAB Diltiazem HCl (Cardizem Tab) 30 mg TID PO 11/28/16 14:00 12/28/16 13:59 11/29/16 07:52 30 MG Warfarin Sodium (Coumadin Tab) 5 mg DAILY@16 PO 11/28/16 16:00 12/28/16 15:59 11/28/16 17:00 5 MG Acetaminophen (Tylenol Tab) 650 mg Q6H PRN PO 11/29/16 02:15 12/29/16 02:14
--- NOTE | 2016-11-29 11:09 | Clinical Documentation Query ---
FRAN Bain : CLINICAL DOCUMENTATION QUERY Patient is a 76 year old male admitted in the setting of acute CVA, further evaluated for new onset atrial fibrillation. Troponin on admission 2.24 ng/ml with elevated MB and CK/CK-MB ratios. Cardiology consultation notes "I am not concerned this represents an acute myocardial ischemia", however, goes on to state "specifically given his underlying coronary artery disease and renal function if anything likely represents a type 2 demand ischemia in the setting of atrial fibrillation with rapid ventricular response". Please clarify as clinically appropriate. Thank you In your clinical opinion is this patient being managed for: ( ) Type II ND secondary to atrial fibrillation with RVR ( ) Not Agree ( ) Other explanation of clinical findings (Please Explain) ( ) Unable to determine (Please Define) ( ) Need to Discuss The medical record reflects the following clinical findings, treatment, and risk factors. Clinical Indicators: As above Treatment: ICU to telemetry, TPA, Coumadin, echo pending, serial cardiac enzymes. Risk Factors: Age, known CAD, hypertension, dyslipidemia Please clarify and document your clinical opinion in the progress notes and discharge summary. Terms such as "probable", "suspected", "likely", "questionable", "possible", or "still to be ruled out" are acceptable. IF IN AGREEMENT, YOU MUST DOCUMENT ABOVE DIAGNOSTIC STATEMENT IN DAILY PROGRESS NOTES AND DISCHARGE SUMMARY. This document is not part of the patient's record. Thank You, Ean Elizabeth, LARA [phone]
--- NOTE | 2016-11-29 12:06 | ELECTROENCEPHALOGRAPH REPORT ---
For Dr. Maile Germain. CLINICAL DIAGNOSIS: Aphasia with right hemiparesis and negative MRI. Question postictal state. ELECTROENCEPHALOGRAM DIAGNOSIS: Essentially normal during wakefulness. DESCRIPTION OF TRACING: This EEG was done as a bedside recording and is of good technical quality. Photic stimulation was performed. Hyperventilation was not. Drowsiness and light sleep were not recorded. A simultaneous video analysis of patient movement and behavior was obtained. Under these conditions, there is evidence for normal appearing background rhythm in the alpha range of up to 9-10 Hz of maximum frequency and 30 microvolts of maximum amplitude. This is maximum in posterior head regions and bilaterally symmetrical. Polymorphic mid frequency modest amplitude theta activity is seen over all head regions with some accentuation in the central region in a symmetrical fashion. Anterior head region maximum bilaterally symmetrical low voltage fast activity in the beta range is present. Photic stimulation provoked some modest driving response without a photomyogenic or photoparoxysmal component. At no time during the waking tracing is there evidence for potentially epileptogenic activity in the form of polyspike or spike wave bursts, focal sharp waves or focal spikes. INTERPRETATION: This EEG is essentially normal during wakefulness without evidence for focal or generalized encephalopathy and without evidence for potentially epileptogenic activity.
--- NOTE | 2016-11-29 12:46 | Nephrology Progress Note ---
Nephrology Progress Note Date of Service Nov 29, 2016. Chief Complaint F/U for acute kidney injury with history of chronic kidney disease. Subjective Mr. Mcmahan was seen and examined this am. Has been feeling well, speech improving. Denies SOB, CP, weakness. BP stable. Cr slightly improved to 3.8, has been voiding normally. Review of Systems A complete review of systems was performed. Pertinent positives are noted above. All other systems are negative. Vital Signs Last 8 Hrs Date Time Temp Pulse Resp B/P (MAP) Pulse Ox O2 Delivery O2 Flow Rate FiO2 11/29/16 08:54 94 Room Air 11/29/16 08:42 94 Room Air 11/29/16 08:05 36.6 85 16 120/88 (99) 94 Room Air 11/29/16 03:45 36.9 93 18 125/76 (92) 93 Room Air Last Recorded Weight Weight (Kilograms): 108.000 Physical Exam GENERAL: elderly male, AAA x 3, pleasant, healthy-appearing, not in any distress. NECK: Supple, no JVD. RESPIRATORY: Normal breathing efforts, no accessory muscle use, clear to auscultation bilaterally, no wheezes or rales. CARDIOVASCULAR: S1, S2 normal, rate rhythm regular. EXTREMITY: No lower extremity edema NEURO: speech fluent. PSYCHIATRY: Normal mood and judgment Family History Diabetes mellitus FH: heart disease Social History Smoking Status: Current every day smoker Smokeless Tobacco Use: No Alcohol Use: socially Drug Use: none Marital Status: Housing Status: lives with significant other Occupation: retired Laboratory Results Past 24 Hours 11/29/16 08:12 Red Blood Count 4.45, Mean Corpuscular Volume 93.9, Mean Corpuscular Hemoglobin 31.9, Mean Corpuscular Hemoglobin Concent 34.0, Mean Platelet Volume 9.1, Neutrophils (%) (Auto) 72.9, Lymphocytes (%) (Auto) 17.7, Monocytes (%) (Auto) 7.9, Eosinophils (%) (Auto) 1.1, Basophils (%) (Auto) 0.3, Neutrophils # (Auto) 5.53, Lymphocytes # (Auto) 1.34, Monocytes # (Auto) 0.60, Eosinophils # (Auto) 0.08, Basophils # (Auto) 0.02 11/29/16 06:28 Test 11/28/16 11:54 11/29/16 06:28 11/29/16 08:12 Bedside Glucose 114 mg/dl (70-99) Prothrombin Time 12.9 SECONDS (9.0-12.0) Prothromb Time International Ratio 1.2 (0.9-1.1) Anion Gap 10.0 mmol/L (3-11) Est Creatinine Clear Calc Drug Dose 20.7 ml/min Estimated GFR () 16.8 Estimated GFR (Non- 14.5 BUN/Creatinine Ratio 13.2 (10-20) Calcium Level 9.0 mg/dl (8.5-10.1) White Blood Count 7.58 K/uL (4.8-10.8) Red Blood Count 4.45 M/uL (4.7-6.1) Hemoglobin 14.2 g/dL (14.0-18.0) Hematocrit 41.8 % (42-52) Mean Corpuscular Volume 93.9 fL (80-100) Mean Corpuscular Hemoglobin 31.9 pg (25-34) Mean Corpuscular Hemoglobin Concent 34.0 g/dl (32-36) Platelet Count 183 K/uL (130-400) Mean Platelet Volume 9.1 fL (7.4-10.4) Neutrophils (%) (Auto) 72.9 % Lymphocytes (%) (Auto) 17.7 % Monocytes (%) (Auto) 7.9 % Eosinophils (%) (Auto) 1.1 % Basophils (%) (Auto) 0.3 % Neutrophils # (Auto) 5.53 K/uL (1.4-6.5) Lymphocytes # (Auto) 1.34 K/uL (1.2-3.4) Monocytes # (Auto) 0.60 K/uL (0.11-0.59) Eosinophils # (Auto) 0.08 K/uL (0-0.5) Basophils # (Auto) 0.02 K/uL (0-0.2) RDW Standard Deviation 47.0 fL (36.4-46.3) RDW Coefficient of Variation 13.7 % (11.5-14.5) Immature Granulocyte % (Auto) 0.1 % Immature Granulocyte # (Auto) 0.01 K/uL (0.00-0.02) Allergies Coded Allergies: No Known Allergies (Verified , 09/20/16) Medications Current Inpatient Medications Medications (Trade) Dose Ordered Sig/Maria Guadalupe Route Start Time Stop Time Status Last Admin Dose Admin Miscellaneous Information (Pharmacist Discharge Med Rec Consult) 1 ea UD PRN N/A 11/26/16 22:45 12/26/16 22:44 Ondansetron HCl (Zofran Inj) 4 mg Q6H PRN IV 11/26/16 22:45 12/26/16 22:44 Morphine Sulfate (MoRPHine SULFATE INJ) 2 mg Q30M PRN IV 11/26/16 22:45 12/10/16 22:44 Vancomycin HCl (Vancomycin Oral Soln) 125 mg DAILY PO 11/28/16 09:00 12/28/16 08:59 11/29/16 08:43 125 MG Raspberry (Raspberry Syrup 5ml Cup) 5 ml DAILY PO 11/28/16 09:00 12/27/16 08:59 11/29/16 07:53 5 ML Lactobacillus Acidophilus (Floranex Tab) 4 tab TIDM PO 11/28/16 07:15 12/28/16 07:14 11/29/16 07:51 4 TAB Atorvastatin Calcium (Lipitor Tab) 80 mg QAM PO 11/28/16 09:00 12/28/16 08:59 11/29/16 07:52 80 MG Multivitamins (Multivitamin Tab) 1 tab QAM PO 11/28/16 09:00 12/28/16 08:59 11/29/16 07:53 1 TAB Diltiazem HCl (Cardizem Tab) 30 mg TID PO 11/28/16 14:00 12/28/16 13:59 11/29/16 07:52 30 MG Warfarin Sodium (Coumadin Tab) 5 mg DAILY@16 PO 11/28/16 16:00 12/28/16 15:59 11/28/16 17:00 5 MG Acetaminophen (Tylenol Tab) 650 mg Q6H PRN PO 11/29/16 02:15 12/29/16 02:14 Impression (1) Acute kidney injury (2) Chronic kidney disease, stage IV (severe) (3) CVA (cerebral vascular accident) (4) HTN (hypertension) 76-year-old 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 CT scan, MRI and repeat CT this morning was negative and no evidence of intracranial bleed. Blood pressure has been well controlled. On admission he was found to have acute kidney injury creatinine was 4.4 with baseline creatinine around 3.0. Creatinine slightly started to improve and was 3.9 this morning, other electrolyte remain acceptable. No hypotensive episode. Hemoglobin stable. Electrolyte and volume status stable. Blood pressure well controlled. Acute kidney injury most likely hemodynamically mediated, started to improve, slowly. Remain non-oliguric. Recommendations --renal function continues to improve, volume status, electrolyte and blood pressure acceptable --continue to hold diuretics for now while recovering from acute kidney injury as there is no sign of significant volume overload --avoid nephrotoxic medications --will monitor renal function closely with daily renal panel --patient has mature AV fistula however there is no acute indication for dialysis and hopefully renal function will continued to improve and stabilize --started on anticoagulation for AFib/a flutter Will follow.
--- NOTE | 2016-11-29 15:48 | Neurology Progress Notes ---
Neurology Progress Note Date of Service Nov 29, 2016. Katarina Aldnaa is a 76-year-old right-handed male PMH: CAD, PVD, on aspirin and Plavix. He had a cardiac oblation for afib about 10 years ago and the doctor then told them it could come back.. He has been in his usual state of health about a week ago. He fell while leaning and getting ice water out of the refrigerator. He had no noted neurologic deficit, although he did have injury to his right forearm, for which they sought medical advice. He has been feeling mildly short of breath in the last 2 weeks. At 07:30 in the evening, he stood up and fell due to right-sided weakness. He then later several minutes into the course of this became mute. He was awake and alert, appears to understand what was going on, but could otherwise not speak. He was brought into the ED and was improving. The [place] stroke neurologist was consulted and as the patient was improving, TPA was not given. A noncontrast CT of the head showed a right cerebellar infarct, right occipital infarct and left basal ganglia infarct. No hemorrhage. The patient was admitted. At approximately 05:00 a.m., he had a new episode of right-sided weakness with language dysfunction. The stroke neurologist was reconsulted. This was approximately 9 hours after the initial symptom and it was advised to give TPA. He improving spontaneously soon after the infusion was started. Today he states he is feeling good and thinks his speech is coming back gradually. His is bedside and agrees he's speech is better. He has been up walking today and no difficulties. denies CP, SOB, abdominal pain, N, V. Objective Date Time Temp Pulse Resp B/P (MAP) Pulse Ox O2 Delivery O2 Flow Rate FiO2 11/29/16 12:17 94 Room Air 11/29/16 11:15 36.4 85 17 117/80 (92) 92 Room Air 11/29/16 08:54 94 Room Air 11/29/16 08:42 94 Room Air 11/29/16 08:05 36.6 85 16 120/88 (99) 94 Room Air 11/29/16 03:45 36.9 93 18 125/76 (92) 93 Room Air 11/29/16 00:23 36.8 91 18 121/69 (86) 93 Room Air 11/28/16 20:01 36.7 91 18 128/96 (107) 91 Room Air 11/28/16 20:00 Room Air 11/28/16 18:00 84 12 131/89 (103) 97 Room Air 11/28/16 16:00 36.6 86 16 115/74 (88) 99 Room Air 11/28/16 16:00 Room Air Last 24 Hours Test 11/29/16 06:28 11/29/16 08:12 Prothrombin Time 12.9 SECONDS Prothromb Time International Ratio 1.2 Sodium Level 142 mmol/L Potassium Level 3.7 mmol/L Chloride Level 109 mmol/L Carbon Dioxide Level 23 mmol/L Anion Gap 10.0 mmol/L Blood Urea Nitrogen 50 mg/dl Creatinine 3.80 mg/dl Est Creatinine Clear Calc Drug Dose 20.7 ml/min Estimated GFR () 16.8 Estimated GFR (Non- 14.5 BUN/Creatinine Ratio 13.2 Random Glucose 90 mg/dl Calcium Level 9.0 mg/dl White Blood Count 7.58 K/uL Red Blood Count 4.45 M/uL Hemoglobin 14.2 g/dL Hematocrit 41.8 % Mean Corpuscular Volume 93.9 fL Mean Corpuscular Hemoglobin 31.9 pg Mean Corpuscular Hemoglobin Concent 34.0 g/dl Platelet Count 183 K/uL Mean Platelet Volume 9.1 fL Neutrophils (%) (Auto) 72.9 % Lymphocytes (%) (Auto) 17.7 % Monocytes (%) (Auto) 7.9 % Eosinophils (%) (Auto) 1.1 % Basophils (%) (Auto) 0.3 % Neutrophils # (Auto) 5.53 K/uL Lymphocytes # (Auto) 1.34 K/uL Monocytes # (Auto) 0.60 K/uL Eosinophils # (Auto) 0.08 K/uL Basophils # (Auto) 0.02 K/uL RDW Standard Deviation 47.0 fL RDW Coefficient of Variation 13.7 % Immature Granulocyte % (Auto) 0.1 % Immature Granulocyte # (Auto) 0.01 K/uL Imaging: CT head- . No acute intracranial pathology. No hemorrhage. Chronic infarcts in the right cerebellar and left occipital regions, unchanged. MRI brain- No acute intracranial abnormality. No acute ischemia or hemorrhage. Atrophy with chronic microvascular ischemic changes. Gliosis and encephalomalacia related to remote infarction are seen within the bilateral occipital and right cerebellar hemispheres. Small right mastoid effusion. Mild paranasal sinus disease. EEG- This EEG is essentially normal during wakefulness without evidence for focal or generalized encephalopathy and without evidence for potentially epileptogenic activity. Exam: Physical Exam: Constitutional: appearance nourished, healthy and normal Ears, Nose, Mouth and Throat: mucous membranes moist, no injection and skin normal, eyes normal Cardiovascular: irregular irregular Respiratory: clear to auscultation (CTA) and no rales, rhonchi or wheeze Musculoskeletal: mild peripheral edema Skin: no stigmata of neurocutaneous disease noted and normal and intact Eyes: extraocular muscles intact (EOMI) and pupils equal, round and reactive to light (PERRL) NEUROLOGIC EXAMINATION: Mental status: Alert and interactive Oriented to [facility], [facility], 2016, can say no ifs ands or buts Oriented to person Speech some dysphasia and word finding difficulties Cranial Nerves smile eye brow raise symmetric Sensory: light touch Coordination: finger to nose without bi pass Gait/Stance: Posture lying in bed Motor: Negative for pronator drift of out stretched arms with eyes closed. 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 hip flex plantar flex ext 5/5 Current Inpatient Medications Medications (Trade) Dose Ordered Sig/Maria Guadalupe Route Start Time Stop Time Status Last Admin Dose Admin Miscellaneous Information (Pharmacist Discharge Med Rec Consult) 1 ea UD PRN N/A 11/26/16 22:45 12/26/16 22:44 Ondansetron HCl (Zofran Inj) 4 mg Q6H PRN IV 11/26/16 22:45 12/26/16 22:44 Morphine Sulfate (MoRPHine SULFATE INJ) 2 mg Q30M PRN IV 11/26/16 22:45 12/10/16 22:44 Vancomycin HCl (Vancomycin Oral Soln) 125 mg DAILY PO 11/28/16 09:00 12/28/16 08:59 11/29/16 08:43 125 MG Raspberry (Raspberry Syrup 5ml Cup) 5 ml DAILY PO 11/28/16 09:00 12/27/16 08:59 11/29/16 07:53 5 ML Lactobacillus Acidophilus (Floranex Tab) 4 tab TIDM PO 11/28/16 07:15 12/28/16 07:14 11/29/16 11:29 4 TAB Atorvastatin Calcium (Lipitor Tab) 80 mg QAM PO 11/28/16 09:00 12/28/16 08:59 11/29/16 07:52 80 MG Multivitamins (Multivitamin Tab) 1 tab QAM PO 11/28/16 09:00 12/28/16 08:59 11/29/16 07:53 1 TAB Diltiazem HCl (Cardizem Tab) 30 mg TID PO 11/28/16 14:00 12/28/16 13:59 11/29/16 14:18 30 MG Warfarin Sodium (Coumadin Tab) 5 mg DAILY@16 PO 11/28/16 16:00 12/28/16 15:59 11/28/16 17:00 5 MG Acetaminophen (Tylenol Tab) 650 mg Q6H PRN PO 11/29/16 02:15 12/29/16 02:14 Impression 76 year old male new onset afib on plavix and aspirin, aphasia and right sided weakness- resolving Plan 1. MRI without - no acute findings 2. transitioning to coumadin and plavix no aspirin 3. cardiology to manage afib medically 4. optimize HTN, DL 5. PT/OT speech for discharge needs 6 fall precautions 7. EEG-no seizure activity 8. repeat MRI brain without and MRA without tomorrow to further evaluate for stroke I have seen and discussed above patient with Dr Maile Germain, neurology Pt seen and examined, mild residual exp aphasia, no significant weakness. Follow -up MRI tomorrow with MRA of COW, ongoing coumadin for stroke reduction in atrial fibrillation WILLIAM Germain MD
--- NOTE | 2016-11-29 16:32 | Cardiology Follow-Up ---
Subjective Subjective Date of Service: Nov 29, 2016. Pt evaluation today including: conversation w/ patient, physical exam, chart review, lab review, review of studies, review of inpatient medication list Additional Details: Pt seen and examined, with at bedside. No complaints overnight. Deficits just about completely resolved. Tele reviewed: atrial fibrillation, rate controlled. Problem List Medical Problems: (1) CVA (cerebral vascular accident) Status: Acute (2) Elevated troponin Status: Acute Review of Systems Respiratory: No see HPI, No cough, No sputum, No wheezing, No shortness of breath, No dyspnea on exertion, No dyspnea at rest, No hemoptysis, No problem reported Cardiac: No see HPI, No chest pain, No orthopnea, No PND, No edema, No claudication, No palpitations, No problem reported Objective Vital Signs Last Vital Signs Documentation Date Time Temp Pulse Resp B/P (MAP) Pulse Ox O2 Delivery O2 Flow Rate FiO2 11/29/16 16:17 94 Room Air 11/29/16 11:15 36.4 85 17 117/80 (92) 11/28/16 05:42 2.0 Physical Exam: General Appearance: WD/WN, no apparent distress Eyes: bilateral eyes normal inspection, bilateral eyes PERRL, bilateral eyes EOMI ENT: normal ENT inspection, hearing grossly normal, pharynx normal Neck: supple, no adenopathy, thyroid normal, no JVD Respiratory/Chest: chest non-tender, lungs clear, normal breath sounds, no respiratory distress, no accessory muscle use Cardiovascular: no edema, no gallop, no JVD, no murmur, + irregularly irregular Abdomen: normal bowel sounds, non tender, soft, no organomegaly, no pulsatile mass Extremities: normal inspection, no pedal edema, no calf tenderness Neurologic/Psychiatric: 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 CVA s/p TPA following protocol will initiate anticoagulation once acceptable risk as per neurology for repeat CT of head today 2. atrial fibrillation new onset likely source of embolism rates controlled will change to cardizem cd in AM 3. CAD stable ok to d/c tele from cardiac standpoint.
[2016-11-29] MEDS: WARFARIN SOD 5 MG TAB PO SCH (16:50)
[2016-11-30] VITALS (7 sets, daily range): BP systolic 96–167; BP diastolic 63–90; PULSE 79–96; TEMP 36.3–37.1; O2SAT 92–98
[2016-11-30 07:07] LABS: HEMATOCRIT 39.8 % (42-52); MEAN CELL VOLUME 93.4 fL (80-100); MEAN CORPUSCULAR HEMOGLOBIN 32.2 pg (25-34); MEAN CORPUSCULAR HGB CONC 34.4 g/dl (32-36); MEAN PLATELET VOLUME 8.9 fL (7.4-10.4); PLATELET COUNT 176 K/uL (130-400); RED BLOOD COUNT 4.26 M/uL (4.7-6.1); WHITE BLOOD COUNT 6.98 K/uL (4.8-10.8)
[2016-11-30 07:14] LABS: INR 1.2 (0.9-1.1); PROTHROMBIN TIME (PATIENT) 13.1 SECONDS (9.0-12.0)
[2016-11-30 07:41] LABS: BUN/CREATININE RATIO 15.3 (10-20); CALCIUM 8.4 mg/dl (8.5-10.1); CREATININE 3.5 mg/dl (0.60-1.40); POTASSIUM 3.5 mmol/L (3.5-5.1)
--- NOTE | 2016-11-30 08:13 | DIAGNOSTIC IMAGING REPORT ---
BRAIN WITHOUT CONTRAST CLINICAL HISTORY: 76 years-old Male presenting with evaluation of stroke, recently received TPA, recent right-sided weakness. TECHNIQUE: Multisequence, multiplanar MR imaging of the brain was performed without the use of intravenous contrast. IV contrast: None. COMPARISON: 11/27/2016. FINDINGS: Ventricles and sulci normal in size. Periventricular and subcortical white matter T2/FLAIR hyperintensity, nonspecific but likely indicative of chronic small vessel ischemic change. 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 Possible lacunar infarct in the left basal ganglia. No mass effect or midline shift. No restricted diffusion to suggest acute ischemia. No hemorrhage. No extra-axial fluid collection. T2 skull base flow voids preserved. Bone marrow signal intensity within the calvarium within normal limits. The [place] lenses are absent. Minimal mucosal thickening in the ethmoid air cells. Polypoid mucosal thickening in the left maxillary sinus. Fluid noted in the right mastoid air cells. IMPRESSION: 1. No acute intracranial abnormality. 2. Old infarcts in the right cerebral hemisphere and bilateral occipital lobes. Electronically signed by: Luis Lockhart M.D. 11/30/2016 8:12 AM Dictated Date/Time: 11/30/2016 8:08 AM
--- NOTE | 2016-11-30 08:20 | DIAGNOSTIC IMAGING REPORT ---
MR ANGIOGRAM OF THE BRAIN CLINICAL HISTORY: Strokelike symptoms. COMPARISON STUDY: MRI of the brain performed concurrently on 11/30/2016.. TECHNIQUE: 3-D [id number] MR angiography of the intracranial circulation is performed. 3-D tumble views are created and assessed. IV contrast was not administered for this examination. FINDINGS: The [place] of [place] is developmentally complete.. The internal carotid arteries are widely patent bilaterally, as are the anterior and middle cerebral arteries. The vertebrobasilar system and posterior cerebral arteries are widely patent. The vertebral arteries are codominant. There is no aneurysm, high-grade stenosis, or focal vessel cutoff seen throughout the intracranial circulation. A chronic left occipital infarct is again noted. IMPRESSION: Unremarkable MR angiogram of the brain. Electronically signed by: Ronen Teixeira M.D. 11/30/2016 8:19 AM Dictated Date/Time: 11/30/2016 8:08 AM
[2016-11-30] MEDS: ATORVASTATIN 40 MG TAB PO SCH (09:02)
[2016-11-30] MEDS: DILTIAZEM HCL 180 MG CAPCR PO SCH (09:03)
[2016-11-30] MEDS: MULTIVITAMIN TAB PO SCH (09:03)
[2016-11-30] MEDS: LACTOBACILLUS ACIDOPHILUS (FLORANEX) TAB PO SCH ×3 (09:03→16:39)
[2016-11-30] MEDS: VANCOMYCIN HCL 125 MG/2.5ML SOLN PO SCH (09:04)
[2016-11-30] MEDS: RASPBERRY SYRUP 5 ML UDP PO SCH (09:04)
--- NOTE | 2016-11-30 09:45 | Nephrology Progress Note ---
Nephrology Progress Note Date of Service Nov 30, 2016. Chief Complaint F/U for acute kidney injury with history of chronic kidney disease. Subjective Mr. Mcmahan was seen and examined this am. Has been feeling well, speech improving. Denies SOB, CP, weakness. BP stable. Cr slightly improved to 3.5, close to b/l, has been voiding normally. Review of Systems A complete review of systems was performed. Pertinent positives are noted above. All other systems are negative. Vital Signs Last 8 Hrs Date Time Temp Pulse Resp B/P (MAP) Pulse Ox O2 Delivery O2 Flow Rate FiO2 11/30/16 04:00 Room Air 11/30/16 03:36 36.8 86 17 116/71 (86) 94 Room Air Last Recorded Weight Weight (Kilograms): 106.900 Physical Exam GENERAL: Elderly male , AAA x 3, pleasant, healthy-appearing, not in any distress. NECK: Supple, no JVD. RESPIRATORY: Normal breathing efforts, no accessory muscle use, clear to auscultation bilaterally, no wheezes or rales. CARDIOVASCULAR: S1, S2 normal, rate rhythm regular. EXTREMITY: No lower extremity edema NEURO: speech fluent. PSYCHIATRY: Normal mood and judgment Family History Diabetes mellitus FH: heart disease Social History Smoking Status: Current every day smoker Smokeless Tobacco Use: No Alcohol Use: socially Drug Use: none Marital Status: Housing Status: lives with significant other Occupation: retired Laboratory Results Past 24 Hours 11/30/16 06:43 11/30/16 06:43 Test 11/30/16 06:43 Red Blood Count 4.26 M/uL (4.7-6.1) Mean Corpuscular Volume 93.4 fL (80-100) Mean Corpuscular Hemoglobin 32.2 pg (25-34) Mean Corpuscular Hemoglobin Concent 34.4 g/dl (32-36) RDW Standard Deviation 46.2 fL (36.4-46.3) RDW Coefficient of Variation 13.6 % (11.5-14.5) Mean Platelet Volume 8.9 fL (7.4-10.4) Prothrombin Time 13.1 SECONDS (9.0-12.0) Prothromb Time International Ratio 1.2 (0.9-1.1) Anion Gap 8.0 mmol/L (3-11) Est Creatinine Clear Calc Drug Dose 22.3 ml/min Estimated GFR () 18.6 Estimated GFR (Non- 16.0 BUN/Creatinine Ratio 15.3 (10-20) Calcium Level 8.4 mg/dl (8.5-10.1) Allergies Coded Allergies: No Known Allergies (Verified , 09/20/16) Medications Current Inpatient Medications Medications (Trade) Dose Ordered Sig/Maria Guadalupe Route Start Time Stop Time Status Last Admin Dose Admin Miscellaneous Information (Pharmacist Discharge Med Rec Consult) 1 ea UD PRN N/A 11/26/16 22:45 12/26/16 22:44 Ondansetron HCl (Zofran Inj) 4 mg Q6H PRN IV 11/26/16 22:45 12/26/16 22:44 Morphine Sulfate (MoRPHine SULFATE INJ) 2 mg Q30M PRN IV 11/26/16 22:45 12/10/16 22:44 Vancomycin HCl (Vancomycin Oral Soln) 125 mg DAILY PO 11/28/16 09:00 12/28/16 08:59 11/30/16 09:04 125 MG Raspberry (Raspberry Syrup 5ml Cup) 5 ml DAILY PO 11/28/16 09:00 12/27/16 08:59 11/30/16 09:04 5 ML Lactobacillus Acidophilus (Floranex Tab) 4 tab TIDM PO 11/28/16 07:15 12/28/16 07:14 11/30/16 09:03 4 TAB Atorvastatin Calcium (Lipitor Tab) 80 mg QAM PO 11/28/16 09:00 12/28/16 08:59 11/30/16 09:02 80 MG Multivitamins (Multivitamin Tab) 1 tab QAM PO 11/28/16 09:00 12/28/16 08:59 11/30/16 09:03 1 TAB Warfarin Sodium (Coumadin Tab) 5 mg DAILY@16 PO 11/28/16 16:00 12/28/16 15:59 11/29/16 16:50 5 MG Acetaminophen (Tylenol Tab) 650 mg Q6H PRN PO 11/29/16 02:15 12/29/16 02:14 Diltiazem HCl (Cardizem Cd Cap) 180 mg QAM PO 11/30/16 09:00 12/30/16 08:59 11/30/16 09:03 180 MG Impression (1) Acute kidney injury (2) Chronic kidney disease, stage IV (severe) (3) CVA (cerebral vascular accident) (4) HTN (hypertension) 76-year-old 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 CT scan, MRI and repeat CT this morning was negative and no evidence of intracranial bleed. Blood pressure has been well controlled. On admission he was found to have acute kidney injury creatinine was 4.4 with baseline creatinine around 3.0. Creatinine slightly started to improve and was 3.9 this morning, other electrolyte remain acceptable. No hypotensive episode. Hemoglobin stable. Electrolyte and volume status stable. Blood pressure well controlled. Acute kidney injury most likely hemodynamically mediated, started to improve, slowly. Remain non-oliguric. Recommendations --renal function continues to improve, volume status, electrolyte and blood pressure acceptable --continue to hold diuretics for now while recovering from acute kidney injury as there is no sign of significant volume overload --avoid nephrotoxic medications --will monitor renal function closely with daily renal panel --patient has mature AV fistula however there is no acute indication for dialysis and hopefully renal function will continued to improve and stabilize --started on anticoagulation for AFib/a flutter --OK to be discharged to [facility] rehab once bed available Will follow.
--- NOTE | 2016-11-30 13:59 | Neurology Progress Notes ---
Neurology Progress Note Date of Service Nov 30, 2016. Katarina Aldana is a 76-year-old right-handed male PMH: CAD, PVD, on aspirin and Plavix. He had a cardiac oblation for afib about 10 years ago and the doctor then told them it could come back.. He has been in his usual state of health about a week ago. He fell while leaning and getting ice water out of the refrigerator. He had no noted neurologic deficit, although he did have injury to his right forearm, for which they sought medical advice. He has been feeling mildly short of breath in the last 2 weeks. At 07:30 in the evening, he stood up and fell due to right-sided weakness. He then later several minutes into the course of this became mute. He was awake and alert, appears to understand what was going on, but could otherwise not speak. He was brought into the ED and was improving. The [place] stroke neurologist was consulted and as the patient was improving, TPA was not given. A noncontrast CT of the head showed a right cerebellar infarct, right occipital infarct and left basal ganglia infarct. No hemorrhage. The patient was admitted. At approximately 05:00 a.m., he had a new episode of right-sided weakness with language dysfunction. The stroke neurologist was reconsulted. This was approximately 9 hours after the initial symptom and it was advised to give TPA. He improving spontaneously soon after the infusion was started. Today he is sitting bedside still having some word finding issues. He is hopeful to go to but if not he will go to [place] as outpatient. denies CP, SOB, abdominal pain, weakness, numbness tingling -one sided, dysphagia, N, V. Objective Date Time Temp Pulse Resp B/P (MAP) Pulse Ox O2 Delivery O2 Flow Rate FiO2 11/30/16 12:21 36.3 84 16 96/64 (75) 92 Room Air 11/30/16 08:00 Room Air 11/30/16 08:00 Room Air 11/30/16 04:00 Room Air 11/30/16 03:36 36.8 86 17 116/71 (86) 94 Room Air 11/30/16 00:19 36.7 96 18 129/72 (91) 98 Room Air 11/30/16 00:00 Room Air 11/29/16 20:13 36.6 89 16 117/67 (84) 94 Room Air 11/29/16 20:00 Room Air 11/29/16 16:47 36.7 73 18 111/67 (82) 92 Room Air 11/29/16 16:17 94 Room Air 11/29/16 16:17 94 Room Air Last 24 Hours Test 11/30/16 06:43 White Blood Count 6.98 K/uL Red Blood Count 4.26 M/uL Hemoglobin 13.7 g/dL Hematocrit 39.8 % Mean Corpuscular Volume 93.4 fL Mean Corpuscular Hemoglobin 32.2 pg Mean Corpuscular Hemoglobin Concent 34.4 g/dl RDW Standard Deviation 46.2 fL RDW Coefficient of Variation 13.6 % Platelet Count 176 K/uL Mean Platelet Volume 8.9 fL Prothrombin Time 13.1 SECONDS Prothromb Time International Ratio 1.2 Sodium Level 141 mmol/L Potassium Level 3.5 mmol/L Chloride Level 108 mmol/L Carbon Dioxide Level 25 mmol/L Anion Gap 8.0 mmol/L Blood Urea Nitrogen 54 mg/dl Creatinine 3.50 mg/dl Est Creatinine Clear Calc Drug Dose 22.3 ml/min Estimated GFR () 18.6 Estimated GFR (Non- 16.0 BUN/Creatinine Ratio 15.3 Random Glucose 97 mg/dl Calcium Level 8.4 mg/dl Imaging: MRI without contrast- No acute intracranial abnormality. Old infarcts in the right cerebral hemisphere and bilateral occipital lobes MRA - .Unremarkable MR angiogram of the brain. 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 Current Inpatient Medications Medications (Trade) Dose Ordered Sig/Maria Guadalupe Route Start Time Stop Time Status Last Admin Dose Admin Miscellaneous Information (Pharmacist Discharge Med Rec Consult) 1 ea UD PRN N/A 11/26/16 22:45 12/26/16 22:44 Ondansetron HCl (Zofran Inj) 4 mg Q6H PRN IV 11/26/16 22:45 12/26/16 22:44 Morphine Sulfate (MoRPHine SULFATE INJ) 2 mg Q30M PRN IV 11/26/16 22:45 12/10/16 22:44 Vancomycin HCl (Vancomycin Oral Soln) 125 mg DAILY PO 11/28/16 09:00 12/28/16 08:59 11/30/16 09:04 125 MG Raspberry (Raspberry Syrup 5ml Cup) 5 ml DAILY PO 11/28/16 09:00 12/27/16 08:59 11/30/16 09:04 5 ML Lactobacillus Acidophilus (Floranex Tab) 4 tab TIDM PO 11/28/16 07:15 12/28/16 07:14 11/30/16 11:30 4 TAB Atorvastatin Calcium (Lipitor Tab) 80 mg QAM PO 11/28/16 09:00 12/28/16 08:59 11/30/16 09:02 80 MG Multivitamins (Multivitamin Tab) 1 tab QAM PO 11/28/16 09:00 12/28/16 08:59 11/30/16 09:03 1 TAB Warfarin Sodium (Coumadin Tab) 5 mg DAILY@16 PO 11/28/16 16:00 12/28/16 15:59 11/29/16 16:50 5 MG Acetaminophen (Tylenol Tab) 650 mg Q6H PRN PO 11/29/16 02:15 12/29/16 02:14 Diltiazem HCl (Cardizem Cd Cap) 180 mg QAM PO 11/30/16 09:00 12/30/16 08:59 11/30/16 09:03 180 MG Impression 76 year old male new onset afib on plavix and aspirin, aphasia and right sided weakness- resolving Plan 1. MRI without - no acute findings 2. transitioning to coumadin and plavix no aspirin 3. cardiology to manage afib medically 4. optimize HTN, DL 5. PT/OT speech for discharge needs 6 fall precautions 7. EEG-no seizure activity 8. repeat MRI brain without and MRA without no new acute findings will need follow up with neurology 3-4 weeks with Maile Gilbert PAC schedule I have seen and discussed above patient with Dr Maile Germain, neurology Pt seen and examined still with mild dysfluency of speech consistent with infarct but imaging, EEG nonrevealing. Continue risk modification, coumadin as stroke prevention in atrial fibrillation. WILLIAM Germain MD
--- NOTE | 2016-11-30 16:35 | Progress Note ---
Medicine Progress Note Date & Time of Visit: Nov 30, 2016 at 11:02. Subjective Pt was seen and examined Sitting in chair comfortable with present Pt said that he feels fine he said that his strength is getting better denies any chest pain, palpitation, dizziness and sob Objective Last 8 Hrs Date Time Temp Pulse Resp B/P (MAP) Pulse Ox O2 Delivery O2 Flow Rate FiO2 11/30/16 08:00 Room Air 11/30/16 08:00 Room Air 11/30/16 04:00 Room Air 11/30/16 03:36 36.8 86 17 116/71 (86) 94 Room Air Physical Exam: General- no acute distress Head- atraumatic Eyes- PERRL, EOMI ENT- oropharynx clear Neck- supple, no JVD Lungs- clear to auscultation Heart- irregular rhythm Abdomen- normal bowel sounds, soft Extremities-no calf tenderness Neuro- alert, oriented x 3; PERRL, EOMI Skin- warm & dry Laboratory Results: Last 24 Hours Test 11/30/16 06:43 White Blood Count 6.98 K/uL Red Blood Count 4.26 M/uL Hemoglobin 13.7 g/dL Hematocrit 39.8 % Mean Corpuscular Volume 93.4 fL Mean Corpuscular Hemoglobin 32.2 pg Mean Corpuscular Hemoglobin Concent 34.4 g/dl RDW Standard Deviation 46.2 fL RDW Coefficient of Variation 13.6 % Platelet Count 176 K/uL Mean Platelet Volume 8.9 fL Prothrombin Time 13.1 SECONDS Prothromb Time International Ratio 1.2 Sodium Level 141 mmol/L Potassium Level 3.5 mmol/L Chloride Level 108 mmol/L Carbon Dioxide Level 25 mmol/L Anion Gap 8.0 mmol/L Blood Urea Nitrogen 54 mg/dl Creatinine 3.50 mg/dl Est Creatinine Clear Calc Drug Dose 22.3 ml/min Estimated GFR () 18.6 Estimated GFR (Non- 16.0 BUN/Creatinine Ratio 15.3 Random Glucose 97 mg/dl Calcium Level 8.4 mg/dl Assessment & Plan ACUTE CVA WITH RT SIDED WEAKNESS Possible cardioembolic given afib ( new dx was not on anticoagulation )) status post TPA. MRI brain showed no acute intracranial abnormality. 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 Continue Neuro checks Repeat CT done today after 24 hrs post TPA showed no acute ischemia or hemorrhage Neurology on board EEG done this morning PT/OT D/C ro[place] to facilitate ambulation Pt is interested to go to rehab Continue PT Waiting for placement to rehab Repeat MRI done today showed No acute intracranial abnormality. MRA Head done today showed no acute abnormality Will discharge with coumadin and plavix follow up with neurology in 3 to 4 weeks New onset AFIB pt mentions of being tired /TABARES for past 2 weeks EKG shows Afib with rate controlled On cardizem 30 mg TID Starting on coumadin on 11/[address] was negative for hemorrhage Continue coumadin INR 1.2 continue monitor INR ELEVATED TROPONIN possible due to demand ischemia in setting of rapid afib /acute CVA , CKD stage 4 Hx of CAD S/p CABG Denies any chest pain Continue statin Cardiology on board CKD STAGE 4 no evidence of vol overload Continue holding diuretic follows with Nephrology Dr. Ashby Creatine slowly improved to 3.5 Avoid nephrotoxic agent Nephrology on board Case discussed with nephrology, recommended to continue holding diuretic Continue monitor creatine DVT PROPHYLAXIS scd and teds on Coumadin DISPOSITION continue PT/Ot will d/c telemetry Waiting for placement to rehab Consultants: Cardio Nephro Neuro Current Inpatient Medications: Current Inpatient Medications Medications (Trade) Dose Ordered Sig/Maria Guadalupe Route Start Time Stop Time Status Last Admin Dose Admin Miscellaneous Information (Pharmacist Discharge Med Rec Consult) 1 ea UD PRN N/A 11/26/16 22:45 12/26/16 22:44 Ondansetron HCl (Zofran Inj) 4 mg Q6H PRN IV 11/26/16 22:45 12/26/16 22:44 Morphine Sulfate (MoRPHine SULFATE INJ) 2 mg Q30M PRN IV 11/26/16 22:45 12/10/16 22:44 Vancomycin HCl (Vancomycin Oral Soln) 125 mg DAILY PO 11/28/16 09:00 12/28/16 08:59 11/30/16 09:04 125 MG Raspberry (Raspberry Syrup 5ml Cup) 5 ml DAILY PO 11/28/16 09:00 12/27/16 08:59 11/30/16 09:04 5 ML Lactobacillus Acidophilus (Floranex Tab) 4 tab TIDM PO 11/28/16 07:15 12/28/16 07:14 11/30/16 09:03 4 TAB Atorvastatin Calcium (Lipitor Tab) 80 mg QAM PO 11/28/16 09:00 12/28/16 08:59 11/30/16 09:02 80 MG Multivitamins (Multivitamin Tab) 1 tab QAM PO 11/28/16 09:00 12/28/16 08:59 11/30/16 09:03 1 TAB Warfarin Sodium (Coumadin Tab) 5 mg DAILY@16 PO 11/28/16 16:00 12/28/16 15:59 11/29/16 16:50 5 MG Acetaminophen (Tylenol Tab) 650 mg Q6H PRN PO 11/29/16 02:15 12/29/16 02:14 Diltiazem HCl (Cardizem Cd Cap) 180 mg QAM PO 11/30/16 09:00 12/30/16 08:59 11/30/16 09:03 180 MG
[2016-11-30] MEDS: WARFARIN SOD 5 MG TAB PO SCH (16:39)
[2016-12-01 04:29] VITALS: BP 98/76; PULSE 87; TEMP 36.8; O2SAT 97
[2016-12-01 06:31] LABS: INR 1.3 (0.9-1.1); PROTHROMBIN TIME (PATIENT) 14.5 SECONDS (9.0-12.0)
[2016-12-01 07:54] VITALS: BP 152/78; PULSE 100; TEMP 36.5; O2SAT 95
[2016-12-01] MEDS: VANCOMYCIN HCL 125 MG/2.5ML SOLN PO SCH (08:02)
[2016-12-01] MEDS: ATORVASTATIN 40 MG TAB PO SCH (08:03)
[2016-12-01] MEDS: RASPBERRY SYRUP 5 ML UDP PO SCH (08:03)
[2016-12-01] MEDS: DILTIAZEM HCL 180 MG CAPCR PO SCH (08:03)
[2016-12-01] MEDS: MULTIVITAMIN TAB PO SCH (08:03)
[2016-12-01] MEDS: LACTOBACILLUS ACIDOPHILUS (FLORANEX) TAB PO SCH ×3 (08:04→16:37)
--- NOTE | 2016-12-01 10:02 | Nephrology Progress Note ---
Nephrology Progress Note Date of Service Dec 01, 2016. Chief Complaint F/U for acute kidney injury with history of chronic kidney disease. Subjective Mr. Mcmahan was seen and examined in his room this morning. Overall he has been feeling well, denies any chest pain, shortness of breath, headache or visual changes. Denies any weakness, difficulty speaking. Labs from this morning pending. Has been making decent urine, blood pressure stable. INR slightly improved to 1.3. Review of Systems A complete review of systems was performed. Pertinent positives are noted above. All other systems are negative. Vital Signs Last 8 Hrs Date Time Temp Pulse Resp B/P (MAP) Pulse Ox O2 Delivery O2 Flow Rate FiO2 12/01/16 08:00 Room Air 12/01/16 08:00 Room Air 12/01/16 07:54 36.5 100 18 152/78 (102) 95 Room Air 12/01/16 04:30 Room Air 12/01/16 04:29 36.8 87 18 98/76 (83) 97 Room Air Last Recorded Weight Weight (Kilograms): 106.600 Physical Exam GENERAL: Elderly male , AAA x 3, pleasant, healthy-appearing, not in any distress. NECK: Supple, no JVD. RESPIRATORY: Normal breathing efforts, no accessory muscle use, clear to auscultation bilaterally, no wheezes or rales. CARDIOVASCULAR: S1, S2 normal, rate rhythm regular. EXTREMITY: No lower extremity edema NEURO: speech fluent. PSYCHIATRY: Normal mood and judgment Family History Diabetes mellitus FH: heart disease Social History Smoking Status: Current every day smoker Smokeless Tobacco Use: No Alcohol Use: socially Drug Use: none Marital Status: Housing Status: lives with significant other Occupation: retired Laboratory Results Past 24 Hours Test 12/01/16 05:56 Prothrombin Time 14.5 SECONDS (9.0-12.0) Prothromb Time International Ratio 1.3 (0.9-1.1) Allergies Coded Allergies: No Known Allergies (Verified , 09/20/16) Medications Current Inpatient Medications Medications (Trade) Dose Ordered Sig/Maria Guadalupe Route Start Time Stop Time Status Last Admin Dose Admin Miscellaneous Information (Pharmacist Discharge Med Rec Consult) 1 ea UD PRN N/A 11/26/16 22:45 12/26/16 22:44 Ondansetron HCl (Zofran Inj) 4 mg Q6H PRN IV 11/26/16 22:45 12/26/16 22:44 Morphine Sulfate (MoRPHine SULFATE INJ) 2 mg Q30M PRN IV 11/26/16 22:45 12/10/16 22:44 Vancomycin HCl (Vancomycin Oral Soln) 125 mg DAILY PO 11/28/16 09:00 12/28/16 08:59 12/01/16 08:02 125 MG Raspberry (Raspberry Syrup 5ml Cup) 5 ml DAILY PO 11/28/16 09:00 12/27/16 08:59 12/01/16 08:03 5 ML Lactobacillus Acidophilus (Floranex Tab) 4 tab TIDM PO 11/28/16 07:15 12/28/16 07:14 12/01/16 08:04 4 TAB Atorvastatin Calcium (Lipitor Tab) 80 mg QAM PO 11/28/16 09:00 12/28/16 08:59 12/01/16 08:03 80 MG Multivitamins (Multivitamin Tab) 1 tab QAM PO 11/28/16 09:00 12/28/16 08:59 12/01/16 08:03 1 TAB Acetaminophen (Tylenol Tab) 650 mg Q6H PRN PO 11/29/16 02:15 12/29/16 02:14 Diltiazem HCl (Cardizem Cd Cap) 180 mg QAM PO 11/30/16 09:00 12/30/16 08:59 12/01/16 08:03 180 MG Warfarin Sodium (Coumadin Tab) 7.5 mg DAILY@16 PO 12/01/16 16:00 12/28/16 15:59 Impression (1) Acute kidney injury (2) Chronic kidney disease, stage IV (severe) (3) CVA (cerebral vascular accident) (4) HTN (hypertension) 76-year-old 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 CT scan, MRI and repeat CT this morning was negative and no evidence of intracranial bleed. Blood pressure has been well controlled. On admission he was found to have acute kidney injury creatinine was 4.4 with baseline creatinine around 3.0. Creatinine slightly started to improve and was 3.9 this morning, other electrolyte remain acceptable. No hypotensive episode. Hemoglobin stable. Electrolyte and volume status stable. Blood pressure well controlled. Acute kidney injury most likely hemodynamically mediated, started to improve, slowly. Remain non-oliguric. Recommendations --renal function continues to improve, volume status, electrolyte and blood pressure acceptable, Pending recent lab --continue to hold diuretics on discharge --avoid nephrotoxic medications --will monitor renal function closely with daily renal panel --patient has mature AV fistula however there is no acute indication for dialysis and hopefully renal function will continued to improve and stabilize --on anticoagulation for AFib/a flutter the --OK to be discharged to [facility] rehab once bed available, please schedule for renal panel in a week after discharge. --patient should have follow-up with Dr. Lopez Trivedi in next 3-4 weeks. Will follow.
[2016-12-01 10:04] LABS: BUN/CREATININE RATIO 15.2 (10-20); CALCIUM 8.6 mg/dl (8.5-10.1); CREATININE 3.5 mg/dl (0.60-1.40); POTASSIUM 3.4 mmol/L (3.5-5.1)
[2016-12-01 10:55] VITALS: BP 124/77; PULSE 99; TEMP 36.7; O2SAT 93
[2016-12-01] MEDS ORDERED: POTASSIUM CHLORIDE 20 MEQ TABCR PO ONE (11:00)
--- NOTE | 2016-12-01 11:11 | Progress Note ---
Medicine Progress Note Date & Time of Visit: Dec 01, 2016 at 11:03. Subjective Pt was seen and examined Sitting in chair comfortable with no distress Pt said that he feels fine He said that his strength is getting better Denies any chest pain, palpitation, dizziness and SOB Objective Last 8 Hrs Date Time Temp Pulse Resp B/P (MAP) Pulse Ox O2 Delivery O2 Flow Rate FiO2 12/01/16 10:55 36.7 99 18 124/77 (93) 93 Room Air 12/01/16 08:00 Room Air 12/01/16 08:00 Room Air 12/01/16 07:54 36.5 100 18 152/78 (102) 95 Room Air 12/01/16 04:30 Room Air 12/01/16 04:29 36.8 87 18 98/76 (83) 97 Room Air Physical Exam: General- no acute distress Head- atraumatic Eyes- PERRL, EOMI ENT- oropharynx clear Neck- supple, no JVD Lungs- clear to auscultation Heart- irregular rhythm Abdomen- normal bowel sounds, soft Extremities-no calf tenderness Neuro- alert, oriented x 3; PERRL, EOMI Skin- warm & dry Laboratory Results: Last 24 Hours Test 12/01/16 05:56 Prothrombin Time 14.5 SECONDS Prothromb Time International Ratio 1.3 Sodium Level 141 mmol/L Potassium Level 3.4 mmol/L Chloride Level 109 mmol/L Carbon Dioxide Level 25 mmol/L Anion Gap 7.0 mmol/L Blood Urea Nitrogen 53 mg/dl Creatinine 3.50 mg/dl Est Creatinine Clear Calc Drug Dose 22.3 ml/min Estimated GFR () 18.6 Estimated GFR (Non- 16.0 BUN/Creatinine Ratio 15.2 Random Glucose 102 mg/dl Calcium Level 8.6 mg/dl Assessment & Plan ACUTE CVA WITH RT SIDED WEAKNESS Possible cardioembolic given afib ( new dx was not on anticoagulation )) status post TPA. MRI brain showed no acute intracranial abnormality. 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 Continue Neuro checks Repeat CT done today after 24 hrs post TPA showed no acute ischemia or hemorrhage Neurology on board EEG done this morning PT/OT D/C da to facilitate ambulation Pt is interested to go to rehab Continue PT Waiting for placement to rehab Repeat MRI done today showed No acute intracranial abnormality. MRA Head done today showed no acute abnormality Will discharge with coumadin and plavix follow up with neurology in 3 to 4 weeks Clinically stable New onset AFIB pt mentions of being tired /TABARES for past 2 weeks EKG shows Afib with rate controlled On cardizem 180 mg BID Starting on coumadin on 11/[address] was negative for hemorrhage Continue coumadin INR 1.3 Will give coumadin 7.5 mg today continue monitor INR ELEVATED TROPONIN possible due to demand ischemia in setting of rapid afib /acute CVA , CKD stage 4 Hx of CAD S/p CABG Denies any chest pain Continue statin and plavix Cardiology on board Hypokalemia K 3.4 Potassium replaced CKD STAGE 4 no evidence of vol overload Continue holding diuretic follows with Nephrology Dr. Ashby Creatine remains 3.5 Avoid nephrotoxic agent Nephrology on board Case discussed with nephrology, recommended to continue holding diuretic Continue monitor BMP DVT PROPHYLAXIS scd and teds on Coumadin DISPOSITION continue PT/OT will d/c telemetry if he does not d/c today to rehab Waiting for placement to rehab Consultants: Cardio Nephro Neuro Current Inpatient Medications: Current Inpatient Medications Medications (Trade) Dose Ordered Sig/Maria Guadalupe Route Start Time Stop Time Status Last Admin Dose Admin Miscellaneous Information (Pharmacist Discharge Med Rec Consult) 1 ea UD PRN N/A 11/26/16 22:45 12/26/16 22:44 Ondansetron HCl (Zofran Inj) 4 mg Q6H PRN IV 11/26/16 22:45 12/26/16 22:44 Morphine Sulfate (MoRPHine SULFATE INJ) 2 mg Q30M PRN IV 11/26/16 22:45 12/10/16 22:44 Vancomycin HCl (Vancomycin Oral Soln) 125 mg DAILY PO 11/28/16 09:00 12/28/16 08:59 12/01/16 08:02 125 MG Raspberry (Raspberry Syrup 5ml Cup) 5 ml DAILY PO 11/28/16 09:00 12/27/16 08:59 12/01/16 08:03 5 ML Lactobacillus Acidophilus (Floranex Tab) 4 tab TIDM PO 11/28/16 07:15 12/28/16 07:14 12/01/16 08:04 4 TAB Atorvastatin Calcium (Lipitor Tab) 80 mg QAM PO 11/28/16 09:00 12/28/16 08:59 12/01/16 08:03 80 MG Multivitamins (Multivitamin Tab) 1 tab QAM PO 11/28/16 09:00 12/28/16 08:59 12/01/16 08:03 1 TAB Acetaminophen (Tylenol Tab) 650 mg Q6H PRN PO 11/29/16 02:15 12/29/16 02:14 Diltiazem HCl (Cardizem Cd Cap) 180 mg QAM PO 11/30/16 09:00 12/30/16 08:59 12/01/16 08:03 180 MG Warfarin Sodium (Coumadin Tab) 7.5 mg DAILY@16 PO 12/01/16 16:00 12/28/16 15:59
[2016-12-01] MEDS: CLOPIDOGREL BISULFATE 75 MG TAB PO SCH (16:37)
[2016-12-01 16:38] VITALS: BP 124/62; PULSE 93; TEMP 36.4; O2SAT 98
[2016-12-01] MEDS: WARFARIN SOD 7.5 MG TAB PO SCH (16:38)
[2016-12-01 19:54] VITALS: BP 122/67; PULSE 83; TEMP 36.6; O2SAT 95
[2016-12-01] MEDS ORDERED: NURSING VERBAL MED ORDER ONE (23:15)
[2016-12-01] MEDS ORDERED: POTASSIUM CHLORIDE 10 MEQ TABCR PO STA (23:23)
[2016-12-01] MEDS ORDERED: MAGNESIUM SULFATE 1GM / D5W 1 GM in PREMIXED IN D5W 100 ML IV STA (23:24)
[2016-12-01 23:56] VITALS: BP 123/57; PULSE 87; TEMP 36.6; O2SAT 97
[2016-12-02 04:08] VITALS: BP 130/72; PULSE 82; TEMP 36.8; O2SAT 93
[2016-12-02 06:38] LABS: INR 1.8 (0.9-1.1); PROTHROMBIN TIME (PATIENT) 19.4 SECONDS (9.0-12.0)
[2016-12-02 06:52] LABS: CALCIUM 8.4 mg/dl (8.5-10.1); CREATININE 3.4 mg/dl (0.60-1.40); MAGNESIUM 2.2 mg/dl (1.8-2.4); PHOSPHORUS 2.6 mg/dl (2.5-4.9)
[2016-12-02 08:04] VITALS: BP 143/70; PULSE 98; TEMP 36.7; O2SAT 96
[2016-12-02] MEDS: LACTOBACILLUS ACIDOPHILUS (FLORANEX) TAB PO SCH ×3 (08:12→15:53)
[2016-12-02] MEDS: CLOPIDOGREL BISULFATE 75 MG TAB PO SCH (08:12)
[2016-12-02] MEDS: DILTIAZEM HCL 180 MG CAPCR PO SCH (08:13)
[2016-12-02] MEDS: MULTIVITAMIN TAB PO SCH (08:13)
[2016-12-02] MEDS: ATORVASTATIN 40 MG TAB PO SCH (08:13)
[2016-12-02] MEDS: RASPBERRY SYRUP 5 ML UDP PO SCH (08:14)
[2016-12-02] MEDS: VANCOMYCIN HCL 125 MG/2.5ML SOLN PO SCH (08:14)
--- NOTE | 2016-12-02 09:35 | Nephrology Progress Note ---
Nephrology Progress Note Date of Service Dec 02, 2016. Chief Complaint F/U for acute kidney injury with history of chronic kidney disease. Subjective Mr. Mcmahan was seen and evaluated in his room this morning with at bedside. Overall he has been feeling well, denies any chest pain, shortness of breath, headache or visual changes. Denies any weakness, difficulty speaking. Has been making decent urine, blood pressure stable. INR slightly improved to 1.8.. Cr stable, 3.4 Review of Systems A complete review of systems was performed. Pertinent positives are noted above. All other systems are negative. Vital Signs Last 8 Hrs Date Time Temp Pulse Resp B/P (MAP) Pulse Ox O2 Delivery O2 Flow Rate FiO2 12/02/16 04:08 36.8 82 18 130/72 (91) 93 Room Air 12/02/16 04:05 Room Air 12/02/16 00:01 Room Air 12/02/16 00:01 Room Air 12/01/16 23:56 36.6 87 16 123/57 (79) 97 Room Air Last Recorded Weight Weight (Kilograms): 109.000 Physical Exam General Appearance: no apparent distress Head: normocephalic, atraumatic Respiratory/Chest: normal breath sounds, no respiratory distress, no accessory muscle use Extremities/Musculoskelatal: no pedal edema Neurologic/Psych: no motor/sensory deficits, alert, normal mood/affect, oriented x 3 Family History Diabetes mellitus FH: heart disease Social History Smoking Status: Current every day smoker Smokeless Tobacco Use: No Alcohol Use: socially Drug Use: none Marital Status: Housing Status: lives with significant other Occupation: retired Laboratory Results Past 24 Hours 12/02/16 06:03 Test 12/02/16 06:03 Prothrombin Time 19.4 SECONDS (9.0-12.0) Prothromb Time International Ratio 1.8 (0.9-1.1) Anion Gap 7.0 mmol/L (3-11) Est Creatinine Clear Calc Drug Dose 23.0 ml/min Estimated GFR () 19.2 Estimated GFR (Non- 16.6 BUN/Creatinine Ratio 15.0 (10-20) Calcium Level 8.4 mg/dl (8.5-10.1) Phosphorus Level 2.6 mg/dl (2.5-4.9) Magnesium Level 2.2 mg/dl (1.8-2.4) Albumin 2.9 gm/dl (3.4-5.0) Allergies Coded Allergies: No Known Allergies (Verified , 09/20/16) Medications Current Inpatient Medications Medications (Trade) Dose Ordered Sig/Maria Guadalupe Route Start Time Stop Time Status Last Admin Dose Admin Miscellaneous Information (Pharmacist Discharge Med Rec Consult) 1 ea UD PRN N/A 11/26/16 22:45 12/26/16 22:44 Ondansetron HCl (Zofran Inj) 4 mg Q6H PRN IV 11/26/16 22:45 12/26/16 22:44 Morphine Sulfate (MoRPHine SULFATE INJ) 2 mg Q30M PRN IV 11/26/16 22:45 12/10/16 22:44 Vancomycin HCl (Vancomycin Oral Soln) 125 mg DAILY PO 11/28/16 09:00 12/28/16 08:59 12/01/16 08:02 125 MG Raspberry (Raspberry Syrup 5ml Cup) 5 ml DAILY PO 11/28/16 09:00 12/27/16 08:59 12/01/16 08:03 5 ML Lactobacillus Acidophilus (Floranex Tab) 4 tab TIDM PO 11/28/16 07:15 12/28/16 07:14 12/01/16 16:37 4 TAB Atorvastatin Calcium (Lipitor Tab) 80 mg QAM PO 11/28/16 09:00 12/28/16 08:59 12/01/16 08:03 80 MG Multivitamins (Multivitamin Tab) 1 tab QAM PO 11/28/16 09:00 12/28/16 08:59 12/01/16 08:03 1 TAB Acetaminophen (Tylenol Tab) 650 mg Q6H PRN PO 11/29/16 02:15 12/29/16 02:14 Diltiazem HCl (Cardizem Cd Cap) 180 mg QAM PO 11/30/16 09:00 12/30/16 08:59 12/01/16 08:03 180 MG Warfarin Sodium (Coumadin Tab) 7.5 mg DAILY@16 PO 12/01/16 16:00 12/28/16 15:59 12/01/16 16:38 7.5 MG Clopidogrel Bisulfate (plAVix TAB) 75 mg QAM PO 12/01/16 15:00 12/31/16 14:59 12/01/16 16:37 75 MG Impression (1) Acute kidney injury (2) Chronic kidney disease, stage IV (severe) (3) CVA (cerebral vascular accident) (4) HTN (hypertension) 76-year-old 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 CT scan, MRI and repeat CT this morning was negative and no evidence of intracranial bleed. Blood pressure has been well controlled. On admission he was found to have acute kidney injury creatinine was 4.4 with baseline creatinine around 3.0. Creatinine slightly started to improve and was 3.9 this morning, other electrolyte remain acceptable. No hypotensive episode. Hemoglobin stable. Electrolyte and volume status stable. Blood pressure well controlled. Acute kidney injury most likely hemodynamically mediated, started to improve, slowly. Remain non-oliguric. Recommendations --renal function continues to improve, volume status, electrolyte and blood pressure acceptable --continue to hold diuretics on discharge --avoid nephrotoxic medications --monitor renal function closely with daily renal panel while inpatient --patient has mature AV fistula however there is no acute indication for dialysis and hopefully renal function will continued to improve and stabilize --on anticoagulation for AFib/a flutter the --OK to be discharged to [facility] rehab once bed available, please schedule for renal panel in a week after discharge. --patient will have follow-up with Dr. Rodrigues as scheduled. Will sign off.
[2016-12-02 13:17] VITALS: BP 115/59; PULSE 88; TEMP 36.6; O2SAT 95
[2016-12-02] MEDS: WARFARIN SOD 7.5 MG TAB PO SCH (15:52)
[2016-12-02 16:42] VITALS: BP 136/66; PULSE 77; TEMP 36.5; O2SAT 95
--- NOTE | 2016-12-02 19:02 | Progress Note ---
Medicine Progress Note Date & Time of Visit: Dec 02, 2016 at 18:50. Subjective Pt was seen and examined Sitting in chair comfortable Pt said that he feels fine last night he had a few seconds of Vtach while sleeping he said that he did not notice anything. he said that the nurse had to wake him up he denied for rehab to [facility], but approved for subacute rehab after peer to peer review He does not want to go to SNF he said that he rather goes home with home health and he will continue PT at home denies any chest pain, palpitation, dizziness and sob Objective Last 8 Hrs Date Time Temp Pulse Resp B/P (MAP) Pulse Ox O2 Delivery O2 Flow Rate FiO2 12/02/16 16:42 36.5 77 20 136/66 (89) 95 Room Air 12/02/16 16:00 Room Air 12/02/16 13:17 36.6 88 18 115/59 (77) 95 Room Air 12/02/16 12:00 Room Air Physical Exam: General- no acute distress Head- atraumatic Eyes- PERRL, EOMI ENT- oropharynx clear Neck- supple, no JVD Lungs- clear to auscultation Heart- irregular rhythm Abdomen- normal bowel sounds, soft Extremities-no calf tenderness Neuro- alert, oriented x 3; PERRL, EOMI Skin- warm & dry Laboratory Results: Last 24 Hours Test 12/02/16 06:03 Prothrombin Time 19.4 SECONDS Prothromb Time International Ratio 1.8 Sodium Level 141 mmol/L Potassium Level 4.0 mmol/L Chloride Level 109 mmol/L Carbon Dioxide Level 25 mmol/L Anion Gap 7.0 mmol/L Blood Urea Nitrogen 51 mg/dl Creatinine 3.40 mg/dl Est Creatinine Clear Calc Drug Dose 23.0 ml/min Estimated GFR () 19.2 Estimated GFR (Non- 16.6 BUN/Creatinine Ratio 15.0 Random Glucose 104 mg/dl Calcium Level 8.4 mg/dl Phosphorus Level 2.6 mg/dl Magnesium Level 2.2 mg/dl Albumin 2.9 gm/dl Assessment & Plan ACUTE CVA WITH RT SIDED WEAKNESS Possible cardioembolic given afib ( new dx was not on anticoagulation )) status post TPA. MRI brain showed no acute intracranial abnormality. 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 Continue Neuro checks Repeat CT done today after 24 hrs post TPA showed no acute ischemia or hemorrhage Neurology on board EEG done this morning PT/OT D/C roberson to facilitate ambulation Pt is interested to go to rehab Continue PT Waiting for placement to rehab Repeat MRI done today showed No acute intracranial abnormality. MRA Head done today showed no acute abnormality Will discharge with coumadin and plavix follow up with neurology in 3 to 4 weeks Clinically stable 12/02 Clinically doing well Insurance denies him for rehab to [facility] after peer to peer review, he has approved for subacute rehab Refused to go to SNF for subacute rehab will discharge home tomorrow with home health continue PT/OT Follow up with neuro in 3 -4 weeks Continue plavix and coumadin New onset AFIB pt mentions of being tired /TABARES for past 2 weeks EKG shows Afib with rate controlled On cardizem 180 mg BID Starting on coumadin on 11/[address] was negative for hemorrhage INR 1.8 Will give coumadin 5 mg today continue monitor INR Will arrange follow up with the [facility] ELEVATED TROPONIN possible due to demand ischemia in setting of rapid afib /acute CVA , CKD stage 4 Hx of CAD S/p CABG Denies any chest pain Continue statin and plavix Cardiology on board Hypokalemia stable CKD STAGE 4 no evidence of vol overload Continue holding diuretic follows with Nephrology Dr. Ashby Creatine remains 3.4 Avoid nephrotoxic agent Nephrology on board Case discussed with nephrology, recommended to continue holding diuretic Check BMP within 1 week DVT PROPHYLAXIS scd and teds on Coumadin DISPOSITION denies placement to rehab by insurance refused to go to SNF will discharge in am with home health continue PT/OT Consultants: Cardio Nephro Neuro Current Inpatient Medications: Current Inpatient Medications Medications (Trade) Dose Ordered Sig/Maria Guadalupe Route Start Time Stop Time Status Last Admin Dose Admin Miscellaneous Information (Pharmacist Discharge Med Rec Consult) 1 ea UD PRN N/A 11/26/16 22:45 12/26/16 22:44 Ondansetron HCl (Zofran Inj) 4 mg Q6H PRN IV 11/26/16 22:45 12/26/16 22:44 Morphine Sulfate (MoRPHine SULFATE INJ) 2 mg Q30M PRN IV 11/26/16 22:45 12/10/16 22:44 Vancomycin HCl (Vancomycin Oral Soln) 125 mg DAILY PO 11/28/16 09:00 12/28/16 08:59 12/02/16 08:14 125 MG Raspberry (Raspberry Syrup 5ml Cup) 5 ml DAILY PO 11/28/16 09:00 12/27/16 08:59 12/02/16 08:14 5 ML Lactobacillus Acidophilus (Floranex Tab) 4 tab TIDM PO 11/28/16 07:15 12/28/16 07:14 12/02/16 15:53 4 TAB Atorvastatin Calcium (Lipitor Tab) 80 mg QAM PO 11/28/16 09:00 12/28/16 08:59 12/02/16 08:13 80 MG Multivitamins (Multivitamin Tab) 1 tab QAM PO 11/28/16 09:00 12/28/16 08:59 12/02/16 08:13 1 TAB Acetaminophen (Tylenol Tab) 650 mg Q6H PRN PO 11/29/16 02:15 12/29/16 02:14 Diltiazem HCl (Cardizem Cd Cap) 180 mg QAM PO 11/30/16 09:00 12/30/16 08:59 12/02/16 08:13 180 MG Warfarin Sodium (Coumadin Tab) 7.5 mg DAILY@16 PO 12/01/16 16:00 12/28/16 15:59 12/02/16 15:52 7.5 MG Clopidogrel Bisulfate (plAVix TAB) 75 mg QAM PO 12/01/16 15:00 12/31/16 14:59 12/02/16 08:12 75 MG
[2016-12-02 20:47] VITALS: BP 138/77; PULSE 82; TEMP 36.3; O2SAT 97
[2016-12-03 00:40] VITALS: BP 148/80; PULSE 102; TEMP 36.7; O2SAT 94
[2016-12-03 04:30] VITALS: BP 138/67; PULSE 86; TEMP 36.7; O2SAT 98
[2016-12-03 06:44] LABS: INR 2.6 (0.9-1.1); PROTHROMBIN TIME (PATIENT) 29.2 SECONDS (9.0-12.0)
[2016-12-03 06:59] LABS: BUN/CREATININE RATIO 15.2 (10-20); CALCIUM 8.3 mg/dl (8.5-10.1); CREATININE 3.2 mg/dl (0.60-1.40); PHOSPHORUS 2.5 mg/dl (2.5-4.9); POTASSIUM 3.8 mmol/L (3.5-5.1)
[2016-12-03 08:15] VITALS: BP 125/60; PULSE 92; TEMP 37.2; O2SAT 92
[2016-12-03] MEDS: VANCOMYCIN HCL 125 MG/2.5ML SOLN PO SCH (08:20)
[2016-12-03] MEDS: RASPBERRY SYRUP 5 ML UDP PO SCH (08:20)
[2016-12-03] MEDS: ATORVASTATIN 40 MG TAB PO SCH (08:21)
[2016-12-03] MEDS: DILTIAZEM HCL 180 MG CAPCR PO SCH (08:21)
[2016-12-03] MEDS: CLOPIDOGREL BISULFATE 75 MG TAB PO SCH (08:21)
[2016-12-03] MEDS: MULTIVITAMIN TAB PO SCH (08:21)
[2016-12-03] MEDS: LACTOBACILLUS ACIDOPHILUS (FLORANEX) TAB PO SCH ×3 (08:21→17:07)
[2016-12-03 11:37] VITALS: BP 173/87; PULSE 95; TEMP 36.6; O2SAT 97
[2016-12-03] MEDS ORDERED: WARFARIN SOD 2 MG TAB PO SCH (16:00)
--- NOTE | 2016-12-03 16:07 | Progress Note ---
Medicine Progress Note Date & Time of Visit: Dec 03, 2016 at 15:51. Subjective Pt was seen and examined sitting in chair with no distress Pt said that he feels fine he has been ambulate with physical therapy he said that his strength is getting better he denies any chest pain, palpitation, dizziness and SOB Objective Last 8 Hrs Date Time Temp Pulse Resp B/P (MAP) Pulse Ox O2 Delivery O2 Flow Rate FiO2 12/03/16 12:00 Room Air 12/03/16 11:37 36.6 95 18 173/87 (115) 97 12/03/16 08:15 37.2 92 18 125/60 (81) 92 12/03/16 08:00 Room Air Physical Exam: General- no acute distress Head- atraumatic Eyes- PERRL, EOMI ENT- oropharynx clear Neck- supple, no JVD Lungs- clear to auscultation Heart- irregular rhythm Abdomen- normal bowel sounds, soft Extremities-no calf tenderness Neuro- alert, oriented x 3; PERRL, EOMI Skin- warm & dry Laboratory Results: Last 24 Hours Test 12/03/16 06:01 Prothrombin Time 29.2 SECONDS Prothromb Time International Ratio 2.6 Sodium Level 141 mmol/L Potassium Level 3.8 mmol/L Chloride Level 109 mmol/L Carbon Dioxide Level 24 mmol/L Anion Gap 8.0 mmol/L Blood Urea Nitrogen 49 mg/dl Creatinine 3.20 mg/dl Est Creatinine Clear Calc Drug Dose 24.7 ml/min Estimated GFR () 20.7 Estimated GFR (Non- 17.8 BUN/Creatinine Ratio 15.2 Random Glucose 95 mg/dl Calcium Level 8.3 mg/dl Phosphorus Level 2.5 mg/dl Albumin 2.8 gm/dl Assessment & Plan ACUTE STROKE LIKE SYMPTOMS WITH RT SIDED WEAKNESS Possible cardioembolic given afib ( new dx was not on anticoagulation )) status post TPA. MRI brain showed no acute intracranial abnormality. 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 Continue Neuro checks Repeat CT done today after 24 hrs post TPA showed no acute ischemia or hemorrhage Neurology on board EEG done this morning PT/OT D/C roberson to facilitate ambulation Pt is interested to go to rehab Continue PT Waiting for placement to rehab Repeat MRI done today showed No acute intracranial abnormality. MRA Head done today showed no acute abnormality Will discharge with coumadin and plavix follow up with neurology in 3 to 4 weeks Clinically stable 12/03 EEG done showed no evidence for potentially epileptogenic activity. Clinically doing well Insurance denies him for rehab to [facility] after peer to peer review, he has approved for subacute rehab Refused to go to SNF for subacute rehab will discharge home tomorrow with home health continue PT/OT Follow up with neuro in 3 to 4 weeks Continue plavix and coumadin Clinically stable New onset AFIB pt mentions of being tired /TABARES for past 2 weeks EKG shows Afib with rate controlled On cardizem 180 mg BID Starting on coumadin on 11/[address] was negative for hemorrhage INR 2.7 today Will give coumadin 5 mg today continue monitor INR Will arrange follow up with the [facility] Will discharge on Coumadin 2 mg Continue monitor INR ELEVATED TROPONIN possible due to demand ischemia in setting of rapid afib /acute CVA , CKD stage 4 Hx of CAD S/p CABG Denies any chest pain Continue statin and plavix Cardiology on board Hypokalemia stable CKD STAGE 4 no evidence of vol overload Continue holding diuretic follows with Nephrology Dr. Ashby Creatine 3.2 today Avoid nephrotoxic agent Nephrology on board Case discussed with nephrology, recommended to continue holding diuretic Check BMP within 1 week DVT PROPHYLAXIS scd and teds on Coumadin DISPOSITION denies placement to rehab by insurance refused to go to SNF will discharge in am with home health continue PT/OT follow up with Dr. Malcolm on 12/09 @ 13:05 Consultants: Cardio Nephro Neuro Current Inpatient Medications: Current Inpatient Medications Medications (Trade) Dose Ordered Sig/Maria Guadalupe Route Start Time Stop Time Status Last Admin Dose Admin Miscellaneous Information (Pharmacist Discharge Med Rec Consult) 1 ea UD PRN N/A 11/26/16 22:45 12/26/16 22:44 Ondansetron HCl (Zofran Inj) 4 mg Q6H PRN IV 11/26/16 22:45 12/26/16 22:44 Morphine Sulfate (MoRPHine SULFATE INJ) 2 mg Q30M PRN IV 11/26/16 22:45 12/10/16 22:44 Vancomycin HCl (Vancomycin Oral Soln) 125 mg DAILY PO 11/28/16 09:00 12/28/16 08:59 12/03/16 08:20 125 MG Raspberry (Raspberry Syrup 5ml Cup) 5 ml DAILY PO 11/28/16 09:00 12/27/16 08:59 12/03/16 08:20 5 ML Lactobacillus Acidophilus (Floranex Tab) 4 tab TIDM PO 11/28/16 07:15 12/28/16 07:14 12/03/16 11:14 4 TAB Atorvastatin Calcium (Lipitor Tab) 80 mg QAM PO 11/28/16 09:00 12/28/16 08:59 12/03/16 08:21 80 MG Multivitamins (Multivitamin Tab) 1 tab QAM PO 11/28/16 09:00 12/28/16 08:59 12/03/16 08:21 1 TAB Acetaminophen (Tylenol Tab) 650 mg Q6H PRN PO 11/29/16 02:15 12/29/16 02:14 Diltiazem HCl (Cardizem Cd Cap) 180 mg QAM PO 11/30/16 09:00 12/30/16 08:59 12/03/16 08:21 180 MG Clopidogrel Bisulfate (plAVix TAB) 75 mg QAM PO 12/01/16 15:00 12/31/16 14:59 12/03/16 08:21 75 MG Warfarin Sodium (Coumadin Tab) 2 mg DAILY@16 PO 12/03/16 16:00 01/02/17 15:59
[2016-12-03 16:11] VITALS: BP 125/63; PULSE 83; TEMP 36.7; O2SAT 93
[2016-12-03] MEDS ORDERED: CMD2 PO (16:15)
[2016-12-03] MEDS ORDERED: CRDCD180 PO (16:15)
--- NOTE | 2016-12-03 16:41 | Discharge Instructions ---
Discharge Instructions Date of Service Dec 03, 2016. Admission Reason for Admission: Stroke Discharge Discharge Diagnosis / Problem: Acute stroke like symptoms, Atrial Fibrilation, Acute kidney injury on CKD4 Discharge Goals Goal(s): Decrease discomfort, Improve function, Improve disease control Activity Recommendations Activity Limitations: resume your previous activity (as tolerated) . Instructions / Follow-Up Instructions / Follow-Up Discharge home with home services Follow up with your primary care provider Dr. Malcolm on 12/09 @ 8:25 am Follow up with neurology Dr. Germain between 3-4 weeks(please call to schedule the f Follow up with cardiology ( already had appointment schedule) Follow up with your nephrology dr. Rodrigues Follow up with speech therapy if needed (Dr. Malcolm can arrange for the referral ) Avoid nephrotoxic agents such as NSAIDs ( naproxen, aleve, motrin, ibuprofen,..) Continue Physical therapy Fall precautions Follow up with the Coumadin clinic ( will contact you for the appointment). your INR today 2.6 Check BMP in 1 week to monitor your kidney function Check PT/INR on Tuesday ( Or follow Coumadin clinic instructions on when to check it) Lab order given for PT/INR and BMP Hold lasix (water pill) for now due to the worsening kidney function, your physician will instruct you when to resume it Continue Plavix and Coumadin Medication Instructions: Coumadin * Warfarin is a medicine prescribed to prevent blood clots * Warfarin will thin your blood and help prevent new clots * Take your medications exactly as directed * Never skip a dose. Never take a double dose. If you miss a dose, take it as soon as you remember * It is important for your doctor to monitor your prothrombin time (PT). This is a lab test * Keep your appointment for lab tests Risk of Adverse Drug Reactions and Interactions: * Warfarin increases your risk of bleeding * The food you eat and other medications you take can affect how Warfarin works in your body * Ask your doctor about daily aspirin therapy * It is very important to talk with your doctor about all of the other medicines , antibiotics, vitamins or herbal products that you are taking * All of your medication must be approved by your doctor, including new medicines, as well as medicines you have taken before you started taking Warfarin Diet: * In order for Warfarin to work properly, it is important to keep your intake of Vitamin K as consistent as possible * You should avoid any sudden change in Vitamin K intake * Report any significant changes in your diet or weight to your doctor Call your Primary Care doctor if you experience any of the following: * Swelling or Pain in your leg * Sudden, continuous pain deep in a muscle * Pain that worsens when you are active or when you stand still for a long time * Chest Pain * Sudden Shortness of Breath * Rapid or pounding heart beat * Fainting * Dizziness * Cough with blood or bloody sputum * Sweating more than normal * Bruises * Heavy or uncontrolled bleeding * Blood in your urine, stool or vomit * Black or tarry stools Follow Up: It is important for you to keep your follow up appointments with your medical provider. Current Hospital Diet Patient's current hospital diet: AHA Diet (Heart Healthy), Renal Diet Discharge Diet Recommended Diet: AHA Diet (Heart Healthy), Renal Diet Pending Studies Studies pending at discharge: no Laboratory Results Hemoglobin A1c Test 11/27/16 03:50 Range/Units Estimated Average Glucose 111 mg/dl Hemoglobin A1c 5.5 4.5-5.6 % Lipid Panel Test 11/27/16 03:50 Range/Units Triglycerides Level 155 H 0-150 mg/dl Cholesterol Level 135 0-200 mg/dl HDL Cholesterol 38 mg/dl Cholesterol/HDL Ratio 3.6 LDL Cholesterol, Calculated 66 mg/dl Medical Emergencies . Who to Call and When: Medical Emergencies: If at any time you feel your situation is an emergency, please call 911 immediately. . Non-Emergent Contact Non-Emergency issues call your: Primary Care Provider Call Non-Emergent contact if: you have any medication questions . . "Provider Documentation" section prepared by Estrada Rhoades. . VTE Core Measure Inpt VTE Proph given/why not?: Warfarin (Coumadin), SCD's
--- NOTE | 2016-12-03 16:52 | Discharge Summary ---
Discharge Summary Date of Service Dec 03, 2016. Discharge Summary Admission Date: Nov 26, 2016 at 23:02 Discharge Date: Dec 03, 2016 Discharge Disposition: Home with services Principal Diagnosis: ACUTE STROKE LIKE SYMPTOMS WITH RT SIDED WEAKNESS Secondary Diagnoses/Problems: New onset Atrial Fibrillation Elevated troponin MANUEL on CKD STAGE 4 Hypokalemia Procedures: BRAIN WITHOUT CONTRAST CLINICAL HISTORY: 76 years-old Male presenting with evaluation of stroke, recently received TPA, recent right-sided weakness. TECHNIQUE: Multisequence, multiplanar MR imaging of the brain was performed without the use of intravenous contrast. IV contrast: None. COMPARISON: 11/27/2016. FINDINGS: Ventricles and sulci normal in size. Periventricular and subcortical white matter T2/FLAIR hyperintensity, nonspecific but likely indicative of chronic small vessel ischemic change. 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 Possible lacunar infarct in the left basal ganglia. No mass effect or midline shift. No restricted diffusion to suggest acute ischemia. No hemorrhage. No extra-axial fluid collection. T2 skull base flow voids preserved. Bone marrow signal intensity within the calvarium within normal limits. The mcgrath lenses are absent. Minimal mucosal thickening in the ethmoid air cells. Polypoid mucosal thickening in the left maxillary sinus. Fluid noted in the right mastoid air cells. IMPRESSION: 1. No acute intracranial abnormality. 2. Old infarcts in the right cerebral hemisphere and bilateral occipital lobes. Electronically signed by: Luis Lockhart M.D. 11/30/2016 8:12 AM Dictated Date/Time: 11/30/2016 8:08 AM MR ANGIOGRAM OF THE BRAIN CLINICAL HISTORY: Strokelike symptoms. COMPARISON STUDY: MRI of the brain performed concurrently on 11/30/2016.. TECHNIQUE: 3-D [id number] MR angiography of the intracranial circulation is performed. 3-D tumble views are created and assessed. IV contrast was not administered for this examination. FINDINGS: The [place] of [place] is developmentally complete.. The internal carotid arteries are widely patent bilaterally, as are the anterior and middle cerebral arteries. The vertebrobasilar system and posterior cerebral arteries are widely patent. The vertebral arteries are codominant. There is no aneurysm, high-grade stenosis, or focal vessel cutoff seen throughout the intracranial circulation. A chronic left occipital infarct is again noted. IMPRESSION: Unremarkable MR angiogram of the brain. Electronically signed by: Ronen Teixeira M.D. 11/30/2016 8:19 AM Dictated Date/Time: 11/30/2016 8:08 AM HEAD WITHOUT CONTRAST (CT) CLINICAL HISTORY: 76 years-old Male presenting with 24 hours follow-up TPA, sx L hemisphere. TECHNIQUE: Multidetector CT imaging of the head was performed without the use of intravenous contrast. IV contrast: None. A dose lowering technique was used consistent with the principles of ALARA (as low as reasonably achievable). COMPARISON: 11/27/2016. CT DOSE (mGy.cm): The estimated cumulative dose is 537.48 mGy.cm. 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 Proportional ventricular and sulcal prominence, likely age-related parenchymal volume loss. Again demonstrated are chronic infarcts in the paramedian left occipital lobe and right cerebellar hemisphere. No mass effect or midline shift. No hemorrhage or acute territorial infarct. No extra-axial fluid collection. Paranasal sinuses and mastoid air cells clear. Calvarium intact. Bilateral mcgrath lenses of the globes are absent. IMPRESSION: 1. No acute intracranial pathology. No hemorrhage. 2. Chronic infarcts in the right cerebellar and left occipital regions, unchanged. Electronically signed by: Luis Lockhart M.D. 11/28/2016 11:19 AM Dictated Date/Time: 11/28/2016 11:15 AM CAROTID DOPPLER NECK ART CLINICAL HISTORY: 76 years-old Male with Stroke. Acute strokelike symptoms. 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 COMPARISON: Carotid ultrasound 03/27/2012 TECHNIQUE: Multiple real time sonographic images of the carotid bifurcations were obtained assessing gambino scale, color Doppler and spectral wave form appearance FINDINGS: RIGHT CAROTID: The peak systolic velocity measured 60 cm/sec. The end diastolic velocity measured 14 cm/sec. The ICA to CCA ratio measured 0.59 which correlates with a stenosis of 0-50%. Extensive mixed plaquing is seen throughout the right carotid vasculature, notably at the bulb. LEFT CAROTID: The peak systolic velocity measured 69 cm/sec. The end diastolic velocity measured 19 cm/sec. The ICA to CCA ratio measured 0.93 which correlates with a stenosis of 0-50%. Extensive mixed plaquing is seen throughout the left carotid vasculature. There is antegrade vertebral flow bilaterally. Blunted waveforms however are seen within the right vertebral artery with peak systolic velocity of 11 cm/s. IMPRESSION: 1. Extensive mixed plaquing of the bilateral carotid vasculature redemonstrated. The previously described hemodynamically significant stenosis of the left internal carotid artery is no longer identified. No hemodynamically significant stenosis is seen on either side. 2. Blunted monophasic waveform of the right vertebral artery is noted with persistent antegrade flow, suspicious for underlying stenosis. The above report was generated using voice recognition software. It may contain grammatical, syntax or spelling errors. Electronically signed by: Jace Hendrickson M.D. 11/27/2016 11:54 AM Dictated Date/Time: 11/27/2016 11:47 AM Consultations: Cardio Nephro Neuro Medication Reconciliation New Medications: Diltiazem HCl (Diltiazem HCl ER) 180 Mg Capcr 180 MG PO QAM for 30 Days Warfarin Sod (Coumadin) 2 Mg Tab 2 MG PO DAILY@16 for 30 Days, TAB Continued Medications: Cholecalciferol (Vitamin D3) 1,000 Unit Tab 1000 INTER.UNIT PO QAM, TAB Clopidogrel Bisulfate (Clopidogrel) 75 Mg Tab 75 MG PO QAM Lactobacillus Acidophilus (Lactinex) Tab 1 TAB PO TIDM, TAB Multivitamin (Multivitamin) Tab 1 TAB PO QAM, TAB Omeprazole (Prilosec) 20 Mg Cap 20 MG PO QAM TAKE THIS MEDICATION ONCE DAILY 30 MINUTES BEFORE BREAKFAST Rosuvastatin Calcium (Rosuvastatin Calcium) 40 Mg Tab 40 MG PO QPM Vancomycin Hcl (Vancomycin) 125 Mg Cap 125 MG PO QAM Discontinued Medications: Aspirin (Aspirin Ec) 81 Mg Tab 161 MG PO HS Furosemide (Lasix) 20 Mg Tab 20 MG PO QAM Metoprolol Tartrate (Lopressor) 25 Mg Tab 25 MG PO BID Admission Information HPI (per Admitting provider): 76 yo nonsmoker with CAD and PVD s/p CABG on ASA and Plavix who presents with acute stroke symptoms that began at 1930 this evening. Specifically, he reports feeling R leg and the R arm numbness and weakness which caused him to collapse into a chair. He later developed some expressive aphasia. He denies any other symptoms of chest pain, shortness of breath, fevers, chills, dysphagia , headaches, visual changes, nausea, vomiting, diarrhea. 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 He has otherwise been feeling well. He has a h/o smoking for 50 years but quit early last year prior to undergoing multiple peripheral vascular surgeries. He also has chronic, recurrent C-diff and is under the care of an ID specialist and on chronic suppressive vancomycin therapy. He has a h/o MRSA. He has some chronic numbness in his feet from his h/o leg surgeries and PAD. He is s/p bilateral CEA in the past. He currently takes ASA 161 daily, Plavix 75 daily and Crestor 40 daily and is compliant with these. In the ER a stroke alert was called and TPA was mixed but prior to giving it, his symptoms completely resolved. He also was found to have an elevated trop of 2 without acute EKG changes. Physical Exam (per Admitting): General Appearance: WD/WN, no apparent distress Head: normocephalic, atraumatic Eyes: normal inspection, PERRL, EOMI, sclerae normal ENT: normal ENT inspection, hearing grossly normal, pharynx normal Neck: supple, no adenopathy, no JVD, trachea midline Respiratory/Chest: chest non-tender, lungs clear, normal breath sounds, no respiratory distress, no accessory muscle use Cardiovascular: no edema, no gallop, no JVD, no murmur, normal peripheral pulses, + irregularly irregular Abdomen/GI: normal bowel sounds, non tender, soft Back: normal inspection Extremities/Musculoskelatal: normal inspection, normal capillary refill, + pertinent finding (slight chronic swelling of L foot/ankle-no edema.) Neurologic/Psych: fruit cutter II-XII nml as tested, no motor/sensory deficits ( except chronic numbness in feet bilaterally and to just prox of L ankle ), alert , normal mood/affect, normal reflexes, oriented x 3, + pertinent finding (neg Romberg, normal coordination testing) Skin: normal color, warm/dry, no rash Hospital Course ACUTE STROKE LIKE SYMPTOMS WITH RT SIDED WEAKNESS Possible cardioembolic given afib ( new dx was not on anticoagulation )) status post TPA. MRI brain showed no acute intracranial abnormality. 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 Continue Neuro checks Repeat CT done today after 24 hrs post TPA showed no acute ischemia or hemorrhage Neurology on board EEG done this morning PT/OT D/C da to facilitate ambulation Pt is interested to go to rehab Continue PT Waiting for placement to rehab Repeat MRI done today showed No acute intracranial abnormality. MRA Head done today showed no acute abnormality Will discharge with coumadin and plavix follow up with neurology in 3 to 4 weeks Clinically stable 12/03 EEG done showed no evidence for potentially epileptogenic activity. Clinically doing well Insurance denies him for rehab to [facility] after peer to peer review, he has approved for subacute rehab Refused to go to SNF for subacute rehab will discharge home tomorrow with home health continue PT/OT Follow up with neuro in 3 to 4 weeks Continue plavix and coumadin Clinically stable New onset AFIB pt mentions of being tired /TABARES for past 2 weeks EKG shows Afib with rate controlled On cardizem 180 mg BID Starting on coumadin on 11/[address] was negative for hemorrhage INR 2.7 today Will give coumadin 5 mg today continue monitor INR Will arrange follow up with the [facility] Will discharge on Coumadin 2 mg Continue monitor INR ELEVATED TROPONIN possible due to demand ischemia in setting of rapid afib /acute CVA , CKD stage 4 Hx of CAD S/p CABG Denies any chest pain Continue statin and plavix Cardiology on board Hypokalemia stable MANUEL on CKD STAGE 4 no evidence of vol overload Continue holding diuretic follows with Nephrology Dr. Ashby Creatine 3.2 today Avoid nephrotoxic agent Nephrology on board Case discussed with nephrology, recommended to continue holding diuretic Check BMP within 1 week DVT PROPHYLAXIS scd and teds on Coumadin DISPOSITION denies placement to rehab by insurance refused to go to SNF will discharge in am with home health continue PT/OT follow up with Dr. Malcolm on 12/09 @ 13:05 Total time spent on discharge = 40 minutes This includes examination of the patient, discharge planning, medication reconciliation, and communication with other providers. Discharge Instructions Discharge Instructions Date of Service Dec 03, 2016. Admission Reason for Admission: Stroke Discharge Discharge Diagnosis / Problem: Acute stroke like symptoms, Atrial Fibrillation , Acute kidney injury on CKD4 Discharge Goals Goal(s): Decrease discomfort, Improve function, Improve disease control Activity Recommendations Activity Limitations: resume your previous activity (as tolerated) . Instructions / Follow-Up Instructions / Follow-Up Discharge home with home services Follow up with your primary care provider Dr. Malcolm on 12/09 @ 8:25 am Follow up with neurology Dr. Germain between 3-4 weeks(please call to schedule the f Follow up with cardiology ( already had appointment schedule) Follow up with your nephrology dr. Rodrigues Follow up with speech therapy if needed (Dr. Malcolm can arrange for the referral ) Avoid nephrotoxic agents such as NSAIDs ( naproxen, aleve, motrin, ibuprofen,..) Continue Physical therapy Fall precautions Follow up with the Coumadin clinic ( will contact you for the appointment). your INR today 2.6 Check BMP in 1 week to monitor your kidney function Check PT/INR on Tuesday ( Or follow Coumadin clinic instructions on when to check it) Lab order given for PT/INR and BMP Hold lasix (water pill) for now due to the worsening kidney function, your physician will instruct you when to resume it Continue Plavix and Coumadin Medication Instructions: Coumadin * Warfarin is a medicine prescribed to prevent blood clots * Warfarin will thin your blood and help prevent new clots * Take your medications exactly as directed * Never skip a dose. Never take a double dose. If you miss a dose, take it as soon as you remember * It is important for your doctor to monitor your prothrombin time (PT). This is a lab test * Keep your appointment for lab tests Risk of Adverse Drug Reactions and Interactions: * Warfarin increases your risk of bleeding * The food you eat and other medications you take can affect how Warfarin works in your body * Ask your doctor about daily aspirin therapy * It is very important to talk with your doctor about all of the other medicines , antibiotics, vitamins or herbal products that you are taking * All of your medication must be approved by your doctor, including new medicines, as well as medicines you have taken before you started taking Warfarin Diet: * In order for Warfarin to work properly, it is important to keep your intake of Vitamin K as consistent as possible * You should avoid any sudden change in Vitamin K intake * Report any significant changes in your diet or weight to your doctor Call your Primary Care doctor if you experience any of the following: * Swelling or Pain in your leg * Sudden, continuous pain deep in a muscle * Pain that worsens when you are active or when you stand still for a long time * Chest Pain * Sudden Shortness of Breath * Rapid or pounding heart beat * Fainting * Dizziness * Cough with blood or bloody sputum * Sweating more than normal * Bruises * Heavy or uncontrolled bleeding * Blood in your urine, stool or vomit * Black or tarry stools Follow Up: It is important for you to keep your follow up appointments with your medical provider. Current Hospital Diet Patient's current hospital diet: AHA Diet (Heart Healthy), Renal Diet Discharge Diet Recommended Diet: AHA Diet (Heart Healthy), Renal Diet Pending Studies Studies pending at discharge: no Laboratory Results Hemoglobin A1c Test 11/27/16 03:50 Range/Units Estimated Average Glucose 111 mg/dl Hemoglobin A1c 5.5 4.5-5.6 % Lipid Panel Test 11/27/16 03:50 Range/Units Triglycerides Level 155 H 0-150 mg/dl Cholesterol Level 135 0-200 mg/dl HDL Cholesterol 38 mg/dl Cholesterol/HDL Ratio 3.6 LDL Cholesterol, Calculated 66 mg/dl Medical Emergencies . Who to Call and When: Medical Emergencies: If at any time you feel your situation is an emergency, please call 911 immediately. . Non-Emergent Contact Non-Emergency issues call your: Primary Care Provider Call Non-Emergent contact if: you have any medication questions . . "Provider Documentation" section prepared by Estrada Rhoades. . VTE Core Measure Inpt VTE Proph given/why not?: Warfarin (Coumadin), SCD's Additional Copies To Lamin Malcolm M.D.
[2016-12-03 16:54] VITALS: BP 125/63; PULSE 83; TEMP 36.7; O2SAT 93
== END 2016-12-03 17:24 | disposition home health service (06) | DRG 62 ==
LOC: EDBD 20:18 → C.EDB 20:19 → C.2E 23:02 → ENRESERV 23:15 → C.2E 23:32 → C.MSICU 11-27 06:29 → ENRESERV 11-28 17:00 → C.2E 11-28 18:41
PROVIDERS: ADMIT Hospitalist; ATTEND Internal Medicine
DX: I63.412 Cerebral infarction due to embolism of left middle cerebral artery (principal); N17.9 Acute kidney failure, unspecified; N18.4 Chronic kidney disease, stage 4 (severe); I73.9 Peripheral vascular disease, unspecified; I25.10 Atherosclerotic heart disease of native coronary artery without angina pectoris; I48.91 Unspecified atrial fibrillation; R79.89 Other specified abnormal findings of blood chemistry; E87.6 Hypokalemia; M79.604 Pain in right leg; I12.9 Hypertensive chronic kidney disease with stage 1 through stage 4 chronic kidney disease, or unspecified chronic kidney disease; E78.5 Hyperlipidemia, unspecified; Z95.1 Presence of aortocoronary bypass graft; Z98.62 Peripheral vascular angioplasty status; Z86.14 Personal history of Methicillin resistant Staphylococcus aureus infection; Z86.19 Personal history of other infectious and parasitic diseases; Z87.891 Personal history of nicotine dependence; Z79.02 Long term (current) use of antithrombotics/antiplatelets; Z79.2 Long term (current) use of antibiotics; Z79.82 Long term (current) use of aspirin; Z79.899 Other long term (current) drug therapy; Z82.49 Family history of ischemic heart disease and other diseases of the circulatory system; Z83.3 Family history of diabetes mellitus

== ENCOUNTER → 2016-12-29 | Outpatient (CLI) | payer MEDICARE, OTHER ==
[~2016-12-29] MED LIST changes: -ASPI81TA28 PO; -CLOP1TAB15 PO; +CMD2 PO; +CRDCD180 PO; -FURO-85 PO; +LCTX PO; -METO25TA56 PO; +OMEP20CA9 PO; +PLV75 PO; -PRLSR20 PO; -ROSU40TA PO; +ROSU40TA18 PO
[2016-12-29 17:37] LABS: HEMATOCRIT 40.7 % (42-52); MEAN CELL VOLUME 96.7 fL (80-100); MEAN CORPUSCULAR HEMOGLOBIN 32.3 pg (25-34); MEAN CORPUSCULAR HGB CONC 33.4 g/dl (32-36); MEAN PLATELET VOLUME 9.5 fL (7.4-10.4); PLATELET COUNT 227 K/uL (130-400); RED BLOOD COUNT 4.21 M/uL (4.7-6.1); WHITE BLOOD COUNT 8.01 K/uL (4.8-10.8)
[2016-12-29 18:01] LABS: BLOOD UREA NITROGEN 30 mg/dl (7-18); BUN/CREATININE RATIO 9.7 (10-20); CALCIUM 8.9 mg/dl (8.5-10.1); CARBON DIOXIDE 26 mmol/L (21-32); CHLORIDE 106 mmol/L (98-107); CREATININE 3.09 mg/dl (0.60-1.40); GLUCOSE 95 mg/dl (70-99); SODIUM 141 mmol/L (136-145)
[2016-12-29 18:02] LABS: PHOSPHORUS 2.4 mg/dl (2.5-4.9)
== END | disposition home or self-care (01) ==
LOC: C.LABBFT 12:16
PROVIDERS: ATTEND Internal Medicine Nephrology
DX: I12.9 Hypertensive chronic kidney disease with stage 1 through stage 4 chronic kidney disease, or unspecified chronic kidney disease (principal); N18.4 Chronic kidney disease, stage 4 (severe); N25.81 Secondary hyperparathyroidism of renal origin; R80.9 Proteinuria, unspecified

== ENCOUNTER → 2017-02-22 | Outpatient (CLI) | payer MEDICARE, OTHER ==
[~2017-02-22] MED LIST changes: +BENZ100C84 PO; +BUME2TAB3 PO; +DILT-113 PO; +FRS/40 PO; +METO-478 PO; +METO25TA56 PO; +POTA1TAB97 PO; +QSTP/ PO; -ROSU40TA18 PO; +ROSU40TA19 PO; +TCMD2 PO; +TPRSR25 PO; +TRAZ50TA35 PO; +VNTHFA/IN INH
[2017-02-22 12:29] LABS: HEMATOCRIT 41.9 % (42-52); HEMOGLOBIN 13.7 g/dL (14.0-18.0); MEAN CELL VOLUME 93.9 fL (80-100); MEAN CORPUSCULAR HEMOGLOBIN 30.7 pg (25-34); MEAN CORPUSCULAR HGB CONC 32.7 g/dl (32-36); MEAN PLATELET VOLUME 9.3 fL (7.4-10.4); PLATELET COUNT 213 K/uL (130-400); RED CELL DISTRIBUTION WIDTH CV 14.6 % (11.5-14.5); RED CELL DISTRIBUTION WIDTH SD 49.7 fL (36.4-46.3); WHITE BLOOD COUNT 11.02 K/uL (4.8-10.8)
[2017-02-22 13:13] LABS: ALBUMIN 3.3 gm/dl (3.4-5.0); BLOOD UREA NITROGEN 41 mg/dl (7-18); CALCIUM 9.5 mg/dl (8.5-10.1); CARBON DIOXIDE 30 mmol/L (21-32); CREATININE 2.75 mg/dl (0.60-1.40); GLUCOSE 94 mg/dl (70-99); PHOSPHORUS 2.7 mg/dl (2.5-4.9); POTASSIUM 4.2 mmol/L (3.5-5.1); SODIUM 139 mmol/L (136-145)
== END | disposition home or self-care (01) ==
LOC: C.LABBFT 11:01
PROVIDERS: ATTEND Internal Medicine Nephrology
DX: N05.1 Unspecified nephritic syndrome with focal and segmental glomerular lesions (principal); I12.9 Hypertensive chronic kidney disease with stage 1 through stage 4 chronic kidney disease, or unspecified chronic kidney disease; N25.81 Secondary hyperparathyroidism of renal origin; R80.9 Proteinuria, unspecified; N18.4 Chronic kidney disease, stage 4 (severe)

== ENCOUNTER 2017-05-03 14:53 | Inpatient (IN) | payer MEDICARE, OTHER ==
[~2017-05-03] VITALS: Ht 182.9 cm; Wt 105.6 kg
[~2017-05-03 14:53] MED LIST changes: -BENZ100C84 PO; -BUME2TAB3 PO; -CHOL1000 PO; -DILT-113 PO; -FRS/40 PO; -LCTX PO; -METO-478 PO; -METO25TA56 PO; -OMEP20CA9 PO; -PLV75 PO; -POTA1TAB97 PO; -QSTP/ PO; -ROSU40TA19 PO; -TCMD2 PO; -TPRSR25 PO; -TRAZ50TA35 PO; -VANC5CAP PO; -VNTHFA/IN INH
[2017-05-03] MEDS ORDERED: CHOL1000 PO (15:27)
[2017-05-03] MEDS ORDERED: FUROSEMIDE 40 MG/4 ML VIAL IV STA ×2 (16:19→17:02)
--- NOTE | 2017-05-03 16:23 | EMERGENCY ROOM VISIT NOTE ---
History Report prepared by Dayana: Carlos Mars Under the Supervision of: Dr. Jarret Saha M.D. First contact with patient: 16:03 Chief Complaint: RESPIRATORY PROBLEMS Stated Complaint: WEIGHT RETENTION, SHORTNESS OF BREATH Nursing Triage Summary: Patient ambulatory to triage with the use of a cane, states "My doctor wants me here. He says I am low on oxygen and I am filling up with fluid...gaining weight. He thinks it's from my heart. My client experience specialist is up to 4. I was on Lasix for the last week but they stopped it today. I have a fistula in my right arm but I am not on dialysis. I never had dialysis though." Patient admits to feeling short of breath, especially with exertion, over the last two weeks. Patient pale. Patient denies any pain anywhere in his body. History of Present Illness The patient is a 76 year old white male with a history of Acute kidney injury, Atrial fibrillation, CAD (coronary artery disease), Chronic diastolic ( congestive) heart failure, Chronic kidney disease, stage IV (severe), CKD ( chronic kidney disease), stage III, Dyslipidemia, GERD (gastroesophageal reflux disease), HTN (hypertension), Osteoarthritis, and PVD (peripheral vascular disease) who presents to the Emergency Room with complaints of worsening shortness of breath that he has been experiencing for the past 2 weeks. The shortness of breath is worse with exertion, but there is no associated chest pain. He also denies any fever/chills, but he has had a productive cough for the past 2 weeks as well. The patient also complains of weight gain and increased peripheral edema recently. The patient is on Lasix daily, and recently had his dosage increased. He has had a fistula placed so he can start Dialysis treatments. He notes he is experiencing some worsening fatigue. He has not had any recent long travels. Source of History: patient Onset: 2 weeks Quality: other (Shortness of breath) Timing: worsening Modifying Factors (Worsening): exertion Modifying Factors (Relieving): other (N/A) Associated Symptoms: + cough, No fevers, No chills, No chest pain Review of Systems See HPI for pertinent positives and negatives. A total of ten systems were reviewed and were otherwise negative. Past Medical & Surgical Medical Problems: (1) Acute kidney injury (2) Atrial fibrillation (3) CAD (coronary artery disease) (4) Chronic diastolic (congestive) heart failure (5) Chronic kidney disease, stage IV (severe) (6) CKD (chronic kidney disease), stage III (7) Dyslipidemia (8) GERD (gastroesophageal reflux disease) (9) HTN (hypertension) (10) Osteoarthritis (11) PVD (peripheral vascular disease) (12) Stroke (13) TIA (transient ischemic attack) Surgical Problems: (1) H/O vascular surgery (2) History of CEA (carotid endarterectomy) (3) S/P ablation of atrial fibrillation (4) S/P CABG x 3 Family History Diabetes mellitus FH: heart disease Social History Smoking Status: Former Smoker Drug Use: none Marital Status: Housing Status: lives with family Occupation Status: retired Current/Historical Medications Scheduled Albuterol Hfa (Ventolin Hfa), 2 PUFFS INH QID Cholecalciferol (Vitamin D3), 1,000 INTER.UNIT PO QAM Clopidogrel Bisulfate (Clopidogrel), 75 MG PO QAM Diltiazem Hcl Ext Rel (Tiazac), 180 MG PO DAILY Furosemide (Lasix), 40 MG PO DAILY Lactobacillus Acidophilus (Lactinex), 1 TAB PO TIDM Metoprolol Tartrate (Lopressor) (Lopressor), 25 MG PO BID Multivitamin (Multivitamin), 1 TAB PO QAM Omeprazole (Prilosec), 20 MG PO QAM Rosuvastatin Calcium (Rosuvastatin Calcium), 40 MG PO QPM Trazodone Hcl (Trazodone), 50 MG PO HS Vancomycin Hcl (Vancomycin), 125 MG PO QAM Warfarin Sod (Coumadin), 2 MG PO 6XWK Warfarin Sod (Coumadin), 4 MG PO WK Scheduled PRN Benzonatate (Tessalon Perles), 100 MG PO TID PRN for Cough Cholestyramine (Prevalite), 4 GM PO BID PRN for Diarrhea Allergies Coded Allergies: No Known Allergies (Verified , 05/03/17) Physical Exam Vital Signs Date Time Temp Pulse Resp B/P (MAP) Pulse Ox O2 Delivery O2 Flow Rate FiO2 05/03/17 19:17 76 20 117/69 93 Nasal Cannula 2.0 05/03/17 17:15 68 22 136/77 93 Nasal Cannula 2.0 05/03/17 16:33 82 05/03/17 16:05 93 Nasal Cannula 2.0 05/03/17 16:05 93 Nasal Cannula 05/03/17 16:05 77 19 165/114 93 Nasal Cannula 2.0 05/03/17 15:07 88 Room Air 05/03/17 15:02 36.2 82 20 105/65 88 Room Air Physical Exam GENERAL: wearing glasses, Awake, alert, well-appearing, NAD HENT: Normocephalic, atraumatic. EYES: Normal conjunctiva. Sclera non-icteric. NECK: Supple. No nuchal rigidity. FROM. RESPIRATORY: Bibasilar crackles, no rhonchi or wheezing. nasal cannula in place. CARDIAC: RRR, no MRG ABDOMEN: Soft, destined , BS+ MSK: No chest wall TTP, no LE edema, Right distal volar forearm has a palpable thrill. There is 3-4+ pitting edema bilaterally, left greater than right lower extremity swelling. NEURO: GCS 15, CN 2-12 intact, moves all 4s on command SKIN: No rash or jaundice noted. Medical Decision & Procedures ER Provider Diagnostic Interpretation: Radiology results as stated below per my review and radiologist interpretation: CHEST ONE VIEW PORTABLE HISTORY: EVALUATE RESPIRATORY DISTRESS.DYSPNEA COMPARISON: Chest 11/26/2016. FINDINGS: The heart remains moderately enlarged. Trace bilateral pleural effusions. Interstitial and vascular thickening has progressed consistent with mild pulmonary edema. Hazy appearance to the lung bases is likely due to the congestive change. No pneumothorax. Poststernotomy changes. IMPRESSION: Mild pulmonary edema, trace bilateral pleural effusions, and moderate cardiomegaly. Electronically signed by: Ovi Vaz M.D. 05/03/2017 5:06 PM Dictated Date/Time: 05/03/2017 4:59 PM Laboratory Results 05/03/17 17:05 Red Blood Count 4.01, Mean Corpuscular Volume 86.8, Mean Corpuscular Hemoglobin 27.4, Mean Corpuscular Hemoglobin Concent 31.6, Mean Platelet Volume 8.9, Neutrophils (%) (Auto) 72.5, Lymphocytes (%) (Auto) 10.9, Monocytes (%) (Auto) 15.9, Eosinophils (%) (Auto) 0.5, Basophils (%) (Auto) 0.1, Neutrophils # (Auto ) 6.20, Lymphocytes # (Auto) 0.93, Monocytes # (Auto) 1.36, Eosinophils # (Auto ) 0.04, Basophils # (Auto) 0.01 05/03/17 17:05 Test 05/03/17 17:05 White Blood Count 8.55 K/uL (4.8-10.8) Red Blood Count 4.01 M/uL (4.7-6.1) Hemoglobin 11.0 g/dL (14.0-18.0) Hematocrit 34.8 % (42-52) Mean Corpuscular Volume 86.8 fL (80-100) Mean Corpuscular Hemoglobin 27.4 pg (25-34) Mean Corpuscular Hemoglobin Concent 31.6 g/dl (32-36) Platelet Count 184 K/uL (130-400) Mean Platelet Volume 8.9 fL (7.4-10.4) Neutrophils (%) (Auto) 72.5 % Lymphocytes (%) (Auto) 10.9 % Monocytes (%) (Auto) 15.9 % Eosinophils (%) (Auto) 0.5 % Basophils (%) (Auto) 0.1 % Neutrophils # (Auto) 6.20 K/uL (1.4-6.5) Lymphocytes # (Auto) 0.93 K/uL (1.2-3.4) Monocytes # (Auto) 1.36 K/uL (0.11-0.59) Eosinophils # (Auto) 0.04 K/uL (0-0.5) Basophils # (Auto) 0.01 K/uL (0-0.2) RDW Standard Deviation 53.8 fL (36.4-46.3) RDW Coefficient of Variation 16.9 % (11.5-14.5) Immature Granulocyte % (Auto) 0.1 % Immature Granulocyte # (Auto) 0.01 K/uL (0.00-0.02) Prothrombin Time 29.1 SECONDS (9.0-12.0) Prothromb Time International Ratio 2.8 (0.9-1.1) Activated Partial Thromboplast Time 36.9 SECONDS (21.0-31.0) Partial Thromboplastin Ratio 1.4 Urine Color YELLOW Urine Appearance CLEAR (CLEAR) Urine pH 5.0 (4.5-7.5) Urine Specific [place] 1.011 (1.000-1.030) Urine Protein 2+ (NEG) Urine Glucose (UA) NEG (NEG) Urine Ketones NEG (NEG) Urine Occult Blood 2+ (NEG) Urine Nitrite NEG (NEG) Urine Bilirubin NEG (NEG) Urine Urobilinogen NEG (NEG) Urine Leukocyte Esterase NEG (NEG) Urine WBC (Auto) 1-5 /hpf (0-5) Urine RBC (Auto) 0-4 /hpf (0-4) Urine Hyaline Casts (Auto) 1-5 /lpf (0-5) Urine Epithelial Cells (Auto) 10-20 /lpf (0-5) Urine Bacteria (Auto) NEG (NEG) Anion Gap 8.0 mmol/L (3-11) Est Creatinine Clear Calc Drug Dose 17.8 ml/min Estimated GFR () 12.7 Estimated GFR (Non- 11.0 BUN/Creatinine Ratio 11.5 (10-20) Calcium Level 8.2 mg/dl (8.5-10.1) Total Bilirubin 0.6 mg/dl (0.2-1) Aspartate Amino Transf (AST/SGOT) 18 U/L (15-37) Alanine Aminotransferase (ALT/SGPT) 28 U/L (12-78) Alkaline Phosphatase 81 U/L (45-117) Troponin I 0.029 ng/ml (0-0.045) Pro-B-Type Natriuretic Peptide 22234 pg/ml (0-1800) Total Protein 7.1 gm/dl (6.4-8.2) Albumin 2.9 gm/dl (3.4-5.0) Globulin 4.2 gm/dl (2.5-4.0) Albumin/Globulin Ratio 0.7 (0.9-2) Laboratory results reviewed by me Medications Administered Medications (Trade) Dose Ordered Sig/Maria Guadalupe Route Start Time Stop Time Status Last Admin Dose Admin Furosemide (Lasix Inj) 40 mg NOW STAT IV 05/03/17 16:19 05/03/17 16:21 DC 05/03/17 17:16 40 MG ECG Per My Interpretation Indication: SOB/dyspnea Rate (beats per minute): 65 Rhythm: atrial fibrillation Findings: other (Normal axis, Normal QRS, T-wave flattening in high lateral) ED Course 1608: The patient was evaluated in room B6. A complete history and physical exam was performed. 1619: Ordered Furosemide 40 mg IV. 1836: I updated the patient on the findings of the case to this point. He is agreeable to an inpatient stay. 190: I discussed the case with Dr. Muller [facility] Hospitalist. He will evaluate the patient for further treatment. Medical Decision The patient is a 76 year old white male with a history of Acute kidney injury, Atrial fibrillation, CAD (coronary artery disease), Chronic diastolic ( congestive) heart failure, Chronic kidney disease, stage IV (severe), CKD ( chronic kidney disease), stage III, Dyslipidemia, GERD (gastroesophageal reflux disease), HTN (hypertension), Osteoarthritis, and PVD (peripheral vascular disease) who presents to the Emergency Room with complaints of worsening shortness of breath that he has been experiencing for the past 2 weeks. The patient's history was concerning for respiratory difficulties. Differential diagnosis: Etiologies such as infections, reactive airway disease, pneumonia, pneumothorax , COPD, CHF, cardiac ischemia, pulmonary embolism, musculoskeletal, gastrointestinal, as well as others were entertained. Prior records were reviewed. Patient was seen and evaluated at the bedside. Patient has had some grossly worsening shortness of breath over the last 2 weeks but even worse of the last several days. Patient was seen in the outpatient setting where he did have some blood work completed along with a chest x-ray. Patient's chest x-ray did show that he had some volume overload and pulmonary edema. Patient did have an elevated creatinine compared to prior. Patient was referred for further evaluation. On exam the patient does complain of some TABARES and mild orthopnea. Patient is also noticed some significant weight gain and lower extremity swelling. Patient denies any changes in medications. He denies any increase in fluids or salt intake. Patient did have blood work completed, EKG, troponin, chest x-ray. Patient's chest x-ray did show volume overload. Patient was given Lasix. The patient did have an elevated creatinine compared to prior. Patient's baseline is approximate 2.3 today's 4.7. Patient is still making urine. Patient's white blood cell count is normal. Outpatient creatinine was 4.9 today's 4.7. INR is therapeutic. Patient's BNP is greater than 10,000. Of note the patient's supervisor steno pool is Dr. Rodrigues and the patient does have a right upper extremity AV fistula however does not been used. This is placed over approximately one years time. Given the elevation in the patient's creatinine along with concomitant heart failure I believe the patient would benefit from further evaluation and treatment. I discussed patient's case with the on-call hospitalist. Medication Reconcilliation Current Medication List: was personally reviewed by me Blood Pressure Screening Patient's blood pressure: Elevated blood pressure Consults Time Called: 1899 Consulting Physician: Dr. Renzo Espinosa Hospitalist Returned Call: [phone] I discussed the case with Dr. Renzo Espinosa [facility]. He will evaluate the patient for further treatment. Impression Primary Impression: CHF (congestive heart failure) Additional Impressions: ARF (acute renal failure) Anemia Scribe Attestation The scribe's documentation has been prepared under my direction and personally reviewed by me in its entirety. I confirm that the note above accurately reflects all work, treatment, procedures, and medical decision making performed by me. Departure Information Dispostion Being Evaluated By Hospitalist Lamin Case M.D. (PCP) Patient Instructions My [facility] Problem Qualifiers Primary Impression: CHF (congestive heart failure) Heart failure type: systolic Heart failure chronicity: acute on chronic Qualified Codes: I50.23 - Acute on chronic systolic (congestive) heart failure Additional Impressions: ARF (acute renal failure) Acute renal failure type: unspecified Qualified Codes: N17.9 - Acute kidney failure, unspecified Anemia Anemia type: unspecified type Qualified Codes: D64.9 - Anemia, unspecified
[2017-05-03] MEDS ORDERED: METO25TA56 PO (16:42)
[2017-05-03] MEDS ORDERED: FRS/40 PO (16:42)
[2017-05-03] MEDS ORDERED: VNTHFA/IN INH (16:42)
[2017-05-03] MEDS ORDERED: QSTP/ PO (16:42)
[2017-05-03] MEDS ORDERED: TRAZ50TA35 PO (16:42)
[2017-05-03] MEDS ORDERED: BENZ100C84 PO (16:42)
[2017-05-03] MEDS ORDERED: CMD2 PO (16:43)
[2017-05-03] MEDS ORDERED: DILT-113 PO (16:43)
[2017-05-03] MEDS ORDERED: TCMD2 PO (16:43)
--- NOTE | 2017-05-03 17:08 | DIAGNOSTIC IMAGING REPORT ---
CHEST ONE VIEW PORTABLE HISTORY: EVALUATE RESPIRATORY DISTRESS.DYSPNEA COMPARISON: Chest 11/26/2016. FINDINGS: The heart remains moderately enlarged. Trace bilateral pleural effusions. Interstitial and vascular thickening has progressed consistent with mild pulmonary edema. Hazy appearance to the lung bases is likely due to the congestive change. No pneumothorax. Poststernotomy changes. IMPRESSION: Mild pulmonary edema, trace bilateral pleural effusions, and moderate cardiomegaly. Electronically signed by: Ovi Vaz M.D. 05/03/2017 5:06 PM Dictated Date/Time: 05/03/2017 4:59 PM
[2017-05-03 17:21] LABS: BASO % 0.1 %; BASO ABS # 0.01 K/uL (0-0.2); EOS % 0.5 %; EOS ABS # 0.04 K/uL (0-0.5); HEMATOCRIT 34.8 % (42-52); IG# 0.01 K/uL (0.00-0.02); LYMPH % 10.9 %; LYMPH ABS # 0.93 K/uL (1.2-3.4); MEAN CELL VOLUME 86.8 fL (80-100); MEAN CORPUSCULAR HEMOGLOBIN 27.4 pg (25-34); MEAN CORPUSCULAR HGB CONC 31.6 g/dl (32-36); MEAN PLATELET VOLUME 8.9 fL (7.4-10.4); MONO % 15.9 %; MONO ABS # 1.36 K/uL (0.11-0.59); NEUT % 72.5 %; PLATELET COUNT 184 K/uL (130-400); RED CELL DISTRIBUTION WIDTH CV 16.9 % (11.5-14.5); RED CELL DISTRIBUTION WIDTH SD 53.8 fL (36.4-46.3); WHITE BLOOD COUNT 8.55 K/uL (4.8-10.8)
[2017-05-03 17:30] LABS: INR 2.8 (0.9-1.1); PTT PATIENT 36.9 SECONDS (21.0-31.0)
[2017-05-03 18:01] LABS: ALBUMIN 2.9 gm/dl (3.4-5.0); CALCIUM 8.2 mg/dl (8.5-10.1); CREATININE 4.79 mg/dl (0.60-1.40); TOTAL PROTEIN 7.1 gm/dl (6.4-8.2)
[2017-05-03] MEDS ORDERED: METOPROLOL TARTRATE 25 MG TAB PO ONE (21:17)
--- NOTE | 2017-05-03 21:23 | History and Physical ---
History & Physical Date & Time of Service: May 03, 2017 at 21:23 , Chief Complaint: worsening edema and SOB . Primary Care Physician: Laimn Malcolm M.D. . History of Present Illness Source: patient, clinic records, hospital records 76 YO male followed by Dr. Malcolm for Family Medicine, Dr. Wetzel for Cardiology , and Dr. Rodrigues for Nephrology. History of ischemic heart disease, diastolic CHF, AF, CKD IV, and other problems noted below. Furosemide stopped in November because of worsening renal function; restarted at 40 mg daily on 04/28/17 because of worsening dependent edema. He has noted increasing dyspnea, malaise, weight gain, increased abdominal girth , and worsening edema. No chest pain. No fever, occasional cough. . Past Medical/Surgical History Chronic and Resolved Medical Problems: (1) Atrial fibrillation Status: Chronic (2) CAD (coronary artery disease) Status: Chronic (3) Cerebrovascular disease Permanent Comment: s/p stroke Nov 2016 Status: Chronic (4) Chronic diastolic (congestive) heart failure Status: Chronic (5) Chronic kidney disease, stage IV (severe) Status: Chronic (6) Dyslipidemia Status: Chronic (7) GERD (gastroesophageal reflux disease) Status: Chronic (8) HTN (hypertension) Status: Chronic (9) Osteoarthritis Status: Chronic (10) PVD (peripheral vascular disease) Status: Chronic (11) TIA (transient ischemic attack) Status: Chronic Surgical Problems: (1) H/O vascular surgery Permanent Comment: 2000 - right femoral endarterectomy, left femoral stent 04/25/15 - left common femoral endarterectomy, left common deep femoral endarterectomy, left common and external iliac stent and angioplasty, left femoral and popliteal stent and angioplasty Status: Chronic (2) History of CEA (carotid endarterectomy) Permanent Comment: left - 2007, right - 2010 Status: Chronic (3) S/P ablation of atrial fibrillation Status: Chronic (4) S/P CABG x 3 Status: Chronic . Family History FATHER Abdominal aortic aneurysm Leukemia BROTHER Abdominal aortic aneurysm Social History Smoking Status: Former Smoker Alcohol Use: 2 bourbon + crenshaw a day Drug Use: none Marital Status: Housing status: lives with significant other Occupational Status: retired Immunizations History of Influenza Vaccine: Yes History of Tetanus Vaccine?: Yes History of Pneumococcal: Yes History of Hepatitis B Vaccine: No Allergies Coded Allergies: No Known Allergies (Verified , 05/03/17) Home Medications Scheduled Albuterol Hfa (Ventolin Hfa), 2 PUFFS INH QID Cholecalciferol (Vitamin D3), 1,000 INTER.UNIT PO QAM Clopidogrel Bisulfate (Clopidogrel), 75 MG PO QAM Diltiazem Hcl Ext Rel (Tiazac), 180 MG PO DAILY Furosemide (Lasix), 40 MG PO DAILY Lactobacillus Acidophilus (Lactinex), 1 TAB PO TIDM Metoprolol Tartrate (Lopressor) (Lopressor), 25 MG PO BID Multivitamin (Multivitamin), 1 TAB PO QAM Omeprazole (Prilosec), 20 MG PO QAM Rosuvastatin Calcium (Rosuvastatin Calcium), 40 MG PO QPM Trazodone Hcl (Trazodone), 50 MG PO HS Warfarin Sod (Coumadin), 2 MG PO 6XWK Warfarin Sod (Coumadin), 4 MG PO WK Scheduled PRN Benzonatate (Tessalon Perles), 100 MG PO TID PRN for Cough Cholestyramine (Prevalite), 4 GM PO BID PRN for Diarrhea Review of Systems CONSTITUTIONAL no fever no weight loss EYES no acute visual changes EARS, NOSE, MOUTH, AND THROAT + hearing loss no sinus symptoms no pharngitis CARDIOVASCULAR as noted above in HPI RESPIRATORY as noted above in HPI GASTROINTESTINAL no nausea or vomiting no diarrhea no constipation no melena or hematochezia GENITOURINARY no dysuria no hematuria MUSCULOSKELETAL + neck pain INTEGUMENTARY dry skin no new / changing lesions NEUROLOGIC no headaches no focal neurologic symptoms ENDOCRINE no polyuria or polydipsia HEMATOLOGIC / LYMPHATIC + bruising no adenopathy . Physical Exam Vital Signs Date Time Temp Pulse Resp B/P (MAP) Pulse Ox O2 Delivery O2 Flow Rate FiO2 05/03/17 21:10 88 20 145/72 95 Room Air 05/03/17 19:17 76 20 117/69 93 Nasal Cannula 2.0 05/03/17 17:15 68 22 136/77 93 Nasal Cannula 2.0 05/03/17 16:33 82 05/03/17 16:05 93 Nasal Cannula 2.0 05/03/17 16:05 93 Nasal Cannula 05/03/17 16:05 77 19 165/114 93 Nasal Cannula 2.0 05/03/17 15:07 88 Room Air 05/03/17 15:02 36.2 82 20 105/65 88 Room Air CONSTITUTIONAL vital signs as noted above well-developed, well-nourished, no acute distress EYES conjunctivae clear; lids normal pupils equal and reactive to light EARS, NOSE, MOUTH AND THROAT external inspection of ears and nose unremarkable hearing grossly intact to spoken voice with hearing aide oropharynx clear NECK no masses; trachea midline thyroid normal RESPIRATORY normal respiratory effort; no respiratory distress clear to percussion bibasilar rales CARDIOVASCULAR irregularly irregular III/ systolic murmur at base; no gallop or rub appreciated carotid arteries 2/2; bilateral bruits abdominal aorta not palpable pedal pulses diminished 3+ pretibial edema GASTROINTESTINAL normal bowel sounds, soft, nontender; no palpable masses no hepatomegaly or splenomegaly appreciated LYMPHATIC no cervical adenopathy MUSCULOSKELETAL no cyanosis; no digital clubbing no calf tenderness motor strength extremities grossly intact SKIN few excoriated lesions warm and dry NEUROLOGIC PERRL, EOMI, no facial palsy, no dysarthria, tongue midline patellar DTR's 2/2 PSYCHIATRIC oriented to person, place, time mood and affect appropriate . Diagnostics Laboratory Results Results Past 24 Hours Test 05/03/17 17:05 Range/Units White Blood Count 8.55 4.8-10.8 K/uL Red Blood Count 4.01 4.7-6.1 M/uL Hemoglobin 11.0 14.0-18.0 g/dL Hematocrit 34.8 42-52 % Mean Corpuscular Volume 86.8 80-100 fL Mean Corpuscular Hemoglobin 27.4 25-34 pg Mean Corpuscular Hemoglobin Concent 31.6 32-36 g/dl Platelet Count 184 130-400 K/uL Mean Platelet Volume 8.9 7.4-10.4 fL Neutrophils (%) (Auto) 72.5 % Lymphocytes (%) (Auto) 10.9 % Monocytes (%) (Auto) 15.9 % Eosinophils (%) (Auto) 0.5 % Basophils (%) (Auto) 0.1 % Neutrophils # (Auto) 6.20 1.4-6.5 K/uL Lymphocytes # (Auto) 0.93 1.2-3.4 K/uL Monocytes # (Auto) 1.36 0.11-0.59 K/uL Eosinophils # (Auto) 0.04 0-0.5 K/uL Basophils # (Auto) 0.01 0-0.2 K/uL RDW Standard Deviation 53.8 36.4-46.3 fL RDW Coefficient of Variation 16.9 11.5-14.5 % Immature Granulocyte % (Auto) 0.1 % Immature Granulocyte # (Auto) 0.01 0.00-0.02 K/uL Prothrombin Time 29.1 9.0-12.0 SECONDS Prothromb Time International Ratio 2.8 0.9-1.1 Activated Partial Thromboplast Time 36.9 21.0-31.0 SECONDS Partial Thromboplastin Ratio 1.4 Urine Color YELLOW Urine Appearance CLEAR CLEAR Urine pH 5.0 4.5-7.5 Urine Specific [place] 1.011 1.000-1.030 Urine Protein 2+ NEG Urine Glucose (UA) NEG NEG Urine Ketones NEG NEG Urine Occult Blood 2+ NEG Urine Nitrite NEG NEG Urine Bilirubin NEG NEG Urine Urobilinogen NEG NEG Urine Leukocyte Esterase NEG NEG Urine WBC (Auto) 1-5 0-5 /hpf Urine RBC (Auto) 0-4 0-4 /hpf Urine Hyaline Casts (Auto) 1-5 0-5 /lpf Urine Epithelial Cells (Auto) 10-20 0-5 /lpf Urine Bacteria (Auto) NEG NEG Sodium Level 138 136-145 mmol/L Potassium Level 4.0 3.5-5.1 mmol/L Chloride Level 105 98-107 mmol/L Carbon Dioxide Level 25 21-32 mmol/L Anion Gap 8.0 3-11 mmol/L Blood Urea Nitrogen 56 7-18 mg/dl Creatinine 4.79 0.60-1.40 mg/dl Est Creatinine Clear Calc Drug Dose 17.8 ml/min Estimated GFR () 12.7 Estimated GFR (Non- 11.0 BUN/Creatinine Ratio 11.5 10-20 Random Glucose 99 70-99 mg/dl Calcium Level 8.2 8.5-10.1 mg/dl Total Bilirubin 0.6 0.2-1 mg/dl Aspartate Amino Transf (AST/SGOT) 18 15-37 U/L Alanine Aminotransferase (ALT/SGPT) 28 12-78 U/L Alkaline Phosphatase 81 45-117 U/L Troponin I 0.029 0-0.045 ng/ml Pro-B-Type Natriuretic Peptide 01558 0-1800 pg/ml Total Protein 7.1 6.4-8.2 gm/dl Albumin 2.9 3.4-5.0 gm/dl Globulin 4.2 2.5-4.0 gm/dl Albumin/Globulin Ratio 0.7 0.9-2 Diagnostic Radiology Chest x-ray reviewed and demonstrated cardiomegaly, pulmonary edema, no infiltrates. . EKG EKG performed at 1655 reviewed and demonstrated atrial fibrillation with a, poor R-wave progression, T-wave flattening inferiorly. . Impression Assessment and Plan ACUTE KIDNEY INJURY / CKD IV CKD 4 with serum creatinine of 2.75 on 02/22/17 and estimated GFR of 25. Serum creatinine now 4.79. Consult Nephrology- patient followed by Dr. Rodrigues. ACUTE ON CHRONIC LEFT VENTRICULAR DIASTOLIC CONGESTIVE HEART FAILURE Chronic left ventricular diastolic CHF. Now with worsening dyspnea on exertion, worsening edema, and pulmonary edema on chest x-ray. Acute diastolic CHF probably related to worsening renal function and increasing fluid retention. Received a dose of IV furosemide in the ED. Continue IV furosemide. CORONARY ARTERY DISEASE No anginal symptoms. Continue metoprolol and diltiazem. ATRIAL FIBRILLATION Continue metoprolol and diltiazem for rate control. Continue anticoagulation with warfarin. HYPERTENSION Continue metoprolol and diltiazem. VTE PROPHYLAXIS Continue warfarin. RESUSCITATION STATUS Discussed with patient. He has a living will and states clearly that he wishes to have a natural passing and does not want to have resuscitation attempted in the event of a cardiopulmonary arrest. He has discussed his wishes with his family. Therefore, code status = "Level 5" (DNR). DISPOSITION Admit to Telemetry Unit. Expected discharge to home. Family Medicine follow-up with Dr. Malcolm. Cardiology follow-up with Dr. Wetzel. Nephrology follow-up with Dr. Rodrigues. . Resuscitation Status VTE Prophylaxis Will order VTE Prophylaxis: Yes
[2017-05-03] MEDS ORDERED: BENZONATATE 100MG CAP PO PRN (21:30)
[2017-05-03] MEDS ORDERED: ROSU40TA28 PO (21:33)
[2017-05-03] MEDS ORDERED: OMEP20CA9 PO (21:33)
[2017-05-03] MEDS ORDERED: VANC5CAP PO (21:35)
[2017-05-03] MEDS ORDERED: PLV75 PO (21:35)
[2017-05-03] MEDS ORDERED: LCTX PO (21:37)
[2017-05-03 22:48] VITALS: BP 110/67; PULSE 105; TEMP 36.8; O2SAT 95; Ht 182.9 cm; Wt 105.6 kg
[2017-05-03 23:59] VITALS: BP 135/64; PULSE 79; TEMP 36.8; O2SAT 96
[2017-05-04] MEDS: TRAZODONE HCL 50 MG TAB PO SCH ×2 (00:17→21:05)
[2017-05-04 04:00] VITALS: BP 126/48; PULSE 77; TEMP 36.6; O2SAT 98
[2017-05-04 05:42] LABS: INR 2.7 (0.9-1.1)
[2017-05-04 06:20] LABS: CREATININE 4.76 mg/dl (0.60-1.40); POTASSIUM 3.7 mmol/L (3.5-5.1)
[2017-05-04 08:00] VITALS: BP 101/62; PULSE 95; TEMP 36.8; O2SAT 93
[2017-05-04] MEDS: ALBUTEROL HFA 8 GM INHALER INH SCH ×4 (08:54→21:05)
[2017-05-04] MEDS: METOPROLOL TARTRATE 25 MG TAB PO SCH ×2 (08:55→21:00)
[2017-05-04] MEDS: CLOPIDOGREL BISULFATE 75 MG TAB PO SCH (08:55)
[2017-05-04] MEDS: LACTOBACILLUS ACIDOPHILUS (FLORANEX) TAB PO SCH ×3 (08:56→16:54)
[2017-05-04] MEDS: PANTOprazole SOD 40 MG TAB PO SCH (08:56)
[2017-05-04] MEDS: DILTIAZEM HCL (TIAzac) 180 MG CAPCR PO SCH (08:56)
[2017-05-04] MEDS: MULTIVITAMIN TAB PO SCH (08:56)
[2017-05-04] MEDS: FUROSEMIDE INJ 80 MG in SYRINGE 0 ML IV SCH ×2 (08:57→16:53)
[2017-05-04] MEDS ORDERED: ROSUVASTATIN CALCIUM 20 MG TAB PO SCH (09:00)
[2017-05-04] MEDS ORDERED: NURSING VERBAL MED ORDER ONE (09:00)
[2017-05-04 12:00] VITALS: BP 110/67; PULSE 84; TEMP 36.8; O2SAT 95
--- NOTE | 2017-05-04 12:03 | Cardiology Consultation ---
Cardiology Consultation Date of Service May 04, 2017. (Tova Márquez PA-C) 05/04/17 (Lavelle Sena,D.OKimberly) Cardiology Consultation Cardiology Consult: Requesting Provider: Dr. Muller Attending Livestock Slaughterer: Dr. Sena HPI: The patient is a very complex 76-year-old male who follows wiht Dr. Wetzel of [facility] for complex history of CAD s/p coronary bypass grafting x 3 for multivessel disease in 2003 receiving a YIN graft to the LAD, a saphenous vein graft to 2 separate obtuse marginals. History of prior tobacco abuse and history of severe PVD follows with [facility] for hsitory of b/l s/p carotid endarterectomy and multiple interventions of b/l LE with stenting and left fem pop bypass. 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 Rodrigues, hypertension, dyslipidemia, history of recent CVA treated with TPA in November 2016 with recurrent afib at that time, now on chronic anticoagulation. Remains in persistent atrial fibrillation. History of atrial flutter ablation in 2004 with EP at [facility] [place]. He reports having fistula placed last year in prep for dialysis. Patient was in to see PCP several weeks ago with worsening cough and sinus congestion. treated for bronchitis with antibiotic. When he returned for f/u 1 week later, he had gained approx 20 lbs with associated LE edema, SOB and cough. PCP resumed furosemide 40 mg BID (diuretics were discontinued during hospitalization in November 2016). Unfortunately no improvement with oral diuretics. Yesterday he had repeat labs with PCP and demonstrated worsening of his creatinine to 4.9 with ongoing symptoms of volume overload and he was sent to ER for evaluation. In ER, creatinine elevated at 4.7, BNP elevated consistent with CHF. Chest xray with small b/l pleural effusions. Cardiac enzymes unremarkable. No acute EKG changes. Chronic afib noted. Rates controlled. Started on IV diuretics. nephrology consulted. At time of consult, patient feeling slightly better. Cough improving. Less dyspnea wiht ambulation in room. Still with abdominal distention and LE edema. no chest pain. No dizziness, syncope or near syncope. No specific orthopnea. No fever or chills. He is unsure if he would like to proceed with dialysis if warranted. He apparently visited local dialysis center and felt it was "too depressing" and did not not want to spend his life in this manner. Review of Systems: See HPI for pertinent positives. All other 10 point review of systems is negative. PMH: S/P ablation of atrial flutter Peripheral vascular disease Kidney disease, chronic, stage II (GFR 60-89 ml/min) HTN, goal below 140/90 Dyslipidemia Atherosclerosis of renal artery Aortocoronary bypass status x3 Atrial fibrillation B/L carotid disease s/p CEA Recent CVA Surgical Problems: (1) H/O vascular surgery - multiple interventions b/l LE (2) History of CEA (carotid endarterectomy) - B/L (3) S/P ablation of atrial fibrillation (4) S/P CABG x 3 (5) Fistula formation right upper extremity 2016 Family History: Family History of AAA Social hsitory: Prior tobacco abuse x 53 years. Quit in 2016. ALLERGIES: Review of patient's allergies indicates: No Known Allergies MEDICATIONS: Reported Home Medications Medications Dose Route/Sig Max Daily Dose Days Date Category Dose Instructions Tiazac (Diltiazem HCl) 180 Mg Capcr 180 Mg PO DAILY 05/03/17 Reported Coumadin (Warfarin Sod) 2 Mg Tab 4 Mg PO WK 05/03/17 Reported 4 mg on mondays Coumadin (Warfarin Sod) 2 Mg Tab 2 Mg PO 6XWK 05/03/17 Reported 2 mg tuesday, tuesday, , tuesday, tuesday, and tuesday Trazodone (Trazodone HCl) 50 Mg Tab 50 Mg PO HS 05/03/17 Reported Lopressor (Metoprolol Tartrate) 25 Mg Tab 25 Mg PO BID 05/03/17 Reported Prevalite (Cholestyramine) 4 Gm Pack 4 Gm PO BID PRN 05/03/17 Reported Tessalon Perles (Benzonatate) 100 Mg Cap 100 Mg PO TID PRN 05/03/17 Reported Ventolin Hfa (Albuterol) 200 Puffs/12760 Mcg Aers 2 Puffs INH QID 05/03/17 Reported Lasix (Furosemide) 40 Mg Tab 40 Mg PO DAILY 05/03/17 Reported Lactinex (Lactobacillus Acidophilus) Tab 1 Tab PO TIDM 11/26/16 Reported Clopidogrel (Clopidogrel Bisulfate) 75 Mg Tab 75 Mg PO QAM 11/26/16 Reported Prilosec (Omeprazole) 20 Mg Cap 20 Mg PO QAM 11/26/16 Reported TAKE THIS MEDICATION ONCE DAILY 30 MINUTES BEFORE BREAKFAST Rosuvastatin Calcium 40 Mg Tab 40 Mg PO QPM 11/26/16 Reported Multivitamin (Multivitamins) Tab 1 Tab PO QAM 07/22/16 Reported Vitamin D3 (Cholecalciferol) 1,000 Unit Tab 1,000 Inter.unit PO QAM 07/22/16 Reported PHYSICAL EXAMINATION: Last 8 Hrs Date Time Temp Pulse Resp B/P (MAP) Pulse Ox O2 Delivery O2 Flow Rate FiO2 05/04/17 04:00 98 Room Air 2.0 05/04/17 04:00 36.6 77 23 126/48 (74) 98 Nasal Cannula 2.0 GEN: A+Ox3. NAD. HEENT exam is normocephalic and atraumatic. +JVD at 45 degrees. There is a well-healed carotid endarterectomy scar bilaterally. There are no audible bruits. Lungs: Bibasilar rales noted bases bilaterally. Cardiovascular exam is irregularly irregular with a grade I-II/ systolic murmur. There is no diastolic murmur. Abdomen nontender, firm/distended. Extremities reveal 2+ LE edema b/l L>R. DATA: Chest xray on admission: IMPRESSION: Mild pulmonary edema, trace bilateral pleural effusions, and moderate cardiomegaly. EKG on admission: Afib, controlled rate with nonspecific ST/T wave changes. Last 24 Hours Test 05/03/17 17:05 05/04/17 05:03 White Blood Count 8.55 K/uL Red Blood Count 4.01 M/uL Hemoglobin 11.0 g/dL Hematocrit 34.8 % Mean Corpuscular Volume 86.8 fL Mean Corpuscular Hemoglobin 27.4 pg Mean Corpuscular Hemoglobin Concent 31.6 g/dl Platelet Count 184 K/uL Mean Platelet Volume 8.9 fL Neutrophils (%) (Auto) 72.5 % Lymphocytes (%) (Auto) 10.9 % Monocytes (%) (Auto) 15.9 % Eosinophils (%) (Auto) 0.5 % Basophils (%) (Auto) 0.1 % Neutrophils # (Auto) 6.20 K/uL Lymphocytes # (Auto) 0.93 K/uL Monocytes # (Auto) 1.36 K/uL Eosinophils # (Auto) 0.04 K/uL Basophils # (Auto) 0.01 K/uL RDW Standard Deviation 53.8 fL RDW Coefficient of Variation 16.9 % Immature Granulocyte % (Auto) 0.1 % Immature Granulocyte # (Auto) 0.01 K/uL Prothrombin Time 29.1 SECONDS 28.1 SECONDS Prothromb Time International Ratio 2.8 2.7 Activated Partial Thromboplast Time 36.9 SECONDS Partial Thromboplastin Ratio 1.4 Urine Color YELLOW Urine Appearance CLEAR Urine pH 5.0 Urine Specific [place] 1.011 Urine Protein 2+ Urine Glucose (UA) NEG Urine Ketones NEG Urine Occult Blood 2+ Urine Nitrite NEG Urine Bilirubin NEG Urine Urobilinogen NEG Urine Leukocyte Esterase NEG Urine WBC (Auto) 1-5 /hpf Urine RBC (Auto) 0-4 /hpf Urine Hyaline Casts (Auto) 1-5 /lpf Urine Epithelial Cells (Auto) 10-20 /lpf Urine Bacteria (Auto) NEG Sodium Level 138 mmol/L 140 mmol/L Potassium Level 4.0 mmol/L 3.7 mmol/L Chloride Level 105 mmol/L 106 mmol/L Carbon Dioxide Level 25 mmol/L 25 mmol/L Anion Gap 8.0 mmol/L 9.0 mmol/L Blood Urea Nitrogen 56 mg/dl 55 mg/dl Creatinine 4.79 mg/dl 4.76 mg/dl Est Creatinine Clear Calc Drug Dose 17.8 ml/min 17.5 ml/min Estimated GFR () 12.7 12.8 Estimated GFR (Non- 11.0 11.0 BUN/Creatinine Ratio 11.5 11.5 Random Glucose 99 mg/dl 98 mg/dl Calcium Level 8.2 mg/dl 8.0 mg/dl Total Bilirubin 0.6 mg/dl Aspartate Amino Transf (AST/SGOT) 18 U/L Alanine Aminotransferase (ALT/SGPT) 28 U/L Alkaline Phosphatase 81 U/L Troponin I 0.029 ng/ml Pro-B-Type Natriuretic Peptide 18776 pg/ml Total Protein 7.1 gm/dl Albumin 2.9 gm/dl Globulin 4.2 gm/dl Albumin/Globulin Ratio 0.7 Total Creatine Kinase 136 U/L Echocardiogram 01/10/2017 demonstrated moderate left ventricular hypertrophy, ejection fraction greater than 70% with moderate left atrial enlargement, moderate aortic sclerosis, mild mitral and trace tricuspid insufficiency. Study performed with elevated atrial rates. IMPRESSION: Complex 76-year-old male 1. Acute on chronic diastolic HF exacerbation with evidence of volume overload 2. Acute on chronic kidney disease with worsening creatinine noted on admission 3. Chronic afib, rates controlled. on Coumadin 4. CAD s/p CABG in 2003. No ischemic EKG changes. Negative cardiac enzymes 5. Hypertension - controlled PLAN: Recommend continuing furosemide 80 mg IV BID. Low salt/sodium diet. Monitor I+O's Appreciate nephrology input. Update 2D echo Patient states he does not wish to pursue dialysis. He has fistula in place. Will defer to nephrology for further decisions with patient. Monitor creatinine and electrolytes. He is aware fluid status may or may not improve with IV diuretics. Continue all other cardiac meds. Case discussed with Dr. Sena. Will follow. (Tova Márquez PA-C) CARDIOLOGY ATTENDING ADDENDUM: The patient was seen and personally examined. Agree with Tova Márquez PA-C's findings and plans as documented above with additions as noted below. Subjective: Patient feels better after two doses of furosemide with less shortness of breath. He describes recent 40 pound weight gain. He has significant lower extremity edema, but he tells me that this is a chronic issue. Physical exam Last Vital Signs Documentation Date Time Temp Pulse Resp B/P (MAP) Pulse Ox O2 Delivery O2 Flow Rate FiO2 05/04/17 08:00 36.8 95 22 101/62 (75) 93 Nasal Cannula 2.0 Cardiovascular regular rhythm, no significant murmurs Lungs, decreased breath sounds bilaterally at the bases, no wheezing Extremities: 2+ lower extremity edema Impression: Acute volume overload, likely diastolic heart failure with cardiorenal syndrome Plan: Update echocardiogram, most recent echocardiogram revealed LVEF greater than 70% Continue cautious diuretic therapy. Patient has expressed preference that if his kidney function worsened, he would not want dialysis. (Lavelle Sena,Grecia.O.)
--- NOTE | 2017-05-04 14:48 | Progress Note ---
Internal Med Progress Note Date of Service: May 04, 2017. Provider Documentation: SUBJECTIVE: says sob is better today lower extremity edema improving denies chest pain no nausea eating ok afebrile could not sleep well last night because of noises OBJECTIVE: Vital Signs-as noted below Exam: General-alert and oriented. Not in distress ENT-Normal hearing Neck-no neck masses Lungs-cta b/l no wheezing mild bibasilar crackles Heart-S1 and S2 heard regular rate and rhythm no murmurs Abdomen-Soft bowel sounds present non tender no distension Extremities-lower extremity edema present no erythema Neuro-alert and awake moves extremities Lab data as noted below. ASSESSMENT & PLAN: ACUTE KIDNEY INJURY / CKD IV CKD 4 with serum creatinine of 2.75 on 02/22/17 and estimated GFR of 25. presented with cr 4.79.cardio renal? on iv lasix cr 4.7 today Consulted Nephrology-await inputs ACUTE ON CHRONIC LEFT VENTRICULAR DIASTOLIC CONGESTIVE HEART FAILURE Chronic left ventricular diastolic CHF. mostlikely secondary to MANUEL and volume retention Improving on IV furosemide. cardiology on board and appreciate inputs CORONARY ARTERY DISEASE stable on metoprolol and diltiazem. ATRIAL FIBRILLATION On metoprolol and diltiazem for rate control. On warfarin.INR 2.7 HYPERTENSION On metoprolol and diltiazem Will monitor. VTE PROPHYLAXIS on warfarin. DISPOSITION to be determined Vital Signs: Date Time Temp Pulse Resp B/P (MAP) Pulse Ox O2 Delivery O2 Flow Rate FiO2 05/04/17 08:00 36.8 95 22 101/62 (75) 93 Nasal Cannula 2.0 05/04/17 08:00 93 Nasal Cannula 2.0 05/04/17 04:00 98 Room Air 2.0 05/04/17 04:00 36.6 77 23 126/48 (74) 98 Nasal Cannula 2.0 05/03/17 23:59 36.8 79 23 135/64 (87) 96 Nasal Cannula 3.0 05/03/17 23:59 96 Room Air 3.0 05/03/17 22:48 36.8 105 22 110/67 95 Room Air 05/03/17 21:10 88 20 145/72 95 Room Air 05/03/17 19:17 76 20 117/69 93 Nasal Cannula 2.0 05/03/17 17:15 68 22 136/77 93 Nasal Cannula 2.0 05/03/17 16:33 82 05/03/17 16:05 93 Nasal Cannula 2.0 05/03/17 16:05 93 Nasal Cannula 05/03/17 16:05 77 19 165/114 93 Nasal Cannula 2.0 05/03/17 15:07 88 Room Air 05/03/17 15:02 36.2 82 20 105/65 88 Room Air Lab Results: Results Past 24 Hours Test 05/03/17 17:05 05/04/17 05:03 Range/Units White Blood Count 8.55 4.8-10.8 K/uL Red Blood Count 4.01 4.7-6.1 M/uL Hemoglobin 11.0 14.0-18.0 g/dL Hematocrit 34.8 42-52 % Mean Corpuscular Volume 86.8 80-100 fL Mean Corpuscular Hemoglobin 27.4 25-34 pg Mean Corpuscular Hemoglobin Concent 31.6 32-36 g/dl Platelet Count 184 130-400 K/uL Mean Platelet Volume 8.9 7.4-10.4 fL Neutrophils (%) (Auto) 72.5 % Lymphocytes (%) (Auto) 10.9 % Monocytes (%) (Auto) 15.9 % Eosinophils (%) (Auto) 0.5 % Basophils (%) (Auto) 0.1 % Neutrophils # (Auto) 6.20 1.4-6.5 K/uL Lymphocytes # (Auto) 0.93 1.2-3.4 K/uL Monocytes # (Auto) 1.36 0.11-0.59 K/uL Eosinophils # (Auto) 0.04 0-0.5 K/uL Basophils # (Auto) 0.01 0-0.2 K/uL RDW Standard Deviation 53.8 36.4-46.3 fL RDW Coefficient of Variation 16.9 11.5-14.5 % Immature Granulocyte % (Auto) 0.1 % Immature Granulocyte # (Auto) 0.01 0.00-0.02 K/uL Prothrombin Time 29.1 28.1 9.0-12.0 SECONDS Prothromb Time International Ratio 2.8 2.7 0.9-1.1 Activated Partial Thromboplast Time 36.9 21.0-31.0 SECONDS Partial Thromboplastin Ratio 1.4 Urine Color YELLOW Urine Appearance CLEAR CLEAR Urine pH 5.0 4.5-7.5 Urine Specific [place] 1.011 1.000-1.030 Urine Protein 2+ NEG Urine Glucose (UA) NEG NEG Urine Ketones NEG NEG Urine Occult Blood 2+ NEG Urine Nitrite NEG NEG Urine Bilirubin NEG NEG Urine Urobilinogen NEG NEG Urine Leukocyte Esterase NEG NEG Urine WBC (Auto) 1-5 0-5 /hpf Urine RBC (Auto) 0-4 0-4 /hpf Urine Hyaline Casts (Auto) 1-5 0-5 /lpf Urine Epithelial Cells (Auto) 10-20 0-5 /lpf Urine Bacteria (Auto) NEG NEG Sodium Level 138 140 136-145 mmol/L Potassium Level 4.0 3.7 3.5-5.1 mmol/L Chloride Level 105 106 98-107 mmol/L Carbon Dioxide Level 25 25 21-32 mmol/L Anion Gap 8.0 9.0 3-11 mmol/L Blood Urea Nitrogen 56 55 7-18 mg/dl Creatinine 4.79 4.76 0.60-1.40 mg/dl Est Creatinine Clear Calc Drug Dose 17.8 17.5 ml/min Estimated GFR () 12.7 12.8 Estimated GFR (Non- 11.0 11.0 BUN/Creatinine Ratio 11.5 11.5 10-20 Random Glucose 99 98 70-99 mg/dl Calcium Level 8.2 8.0 8.5-10.1 mg/dl Total Bilirubin 0.6 0.2-1 mg/dl Aspartate Amino Transf (AST/SGOT) 18 15-37 U/L Alanine Aminotransferase (ALT/SGPT) 28 12-78 U/L Alkaline Phosphatase 81 45-117 U/L Troponin I 0.029 0-0.045 ng/ml Pro-B-Type Natriuretic Peptide 73503 0-1800 pg/ml Total Protein 7.1 6.4-8.2 gm/dl Albumin 2.9 3.4-5.0 gm/dl Globulin 4.2 2.5-4.0 gm/dl Albumin/Globulin Ratio 0.7 0.9-2 Total Creatine Kinase 136 39-308 U/L Microbiology Results 05/03/17 MRSA DNA Surveillance Screen - Final, Complete Specimen Positive for MRSA by DNA Probe
[2017-05-04 15:35] VITALS: BP 130/60; PULSE 72; TEMP 36.7; O2SAT 97
[2017-05-04 16:00] VITALS: O2SAT 92
[2017-05-04] MEDS: WARFARIN SOD 2 MG TAB PO SCH (16:54)
--- NOTE | 2017-05-04 17:24 | Nephrology Consultation ---
Nephrology Consultation Date & Providers Date of Consultation: May 04, 2017. Primary Care Provider: Lamin Malcolm M.D. Referring Provider: Reason for Consultation Acute on chronic renal insufficiency History of Present Illness Mr. Mcmahan is a 76-year-old male with advanced renal impairment. He follows in the nephrology clinic with Dr. Rodrigues. I saw Mr. Mcmahan in the ICU this morning for evaluation of acute on chronic renal insufficiency. I had an extensive conversation with the patient and his . 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 His baseline creatinine is 2.7-3.0 mg/dL. He has had progression of CKD over the past year. This includes nephrotic range proteinuria. 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 Mr. Mcmahan and his acknowledge the advanced nature of the patient's renal dysfunction. AVF was placed in August of 2016 in anticipation of potential future need for renal replacement therapy. Mr. Mcmahan underwent R radial-cephalic AVF creation late by Dr. Richardson at [facility]. During follow up in September, the fistula was found to be maturing slowly and fistulogram/BAM was offered. The patient declined suggesting that he was no longer interested in pursuing dialysis under any circumstances at that time. ARB was stopped due to renal dysfunction. The patient's medical history is also significant for PVD involving the carotid and femoral arteries, ASCVD s/p CABG, atrial fibrillation, C diff colitis, H. pylori + with h/o UGI bleeding, HTN and secondary hyperparathyroidism. In 05/06 the patient developed ischemia of his left great toe. He underwent angiography w/ FUEL SYSTEM MAINTENANCE SUPERVISOR of the femoral vessels at [facility]. He required several stents to be placed. His medical course was complicated by an arterial bleed and hematoma. This subsequently became infected and patient developed septic shock. He had a prolonged hospitalization for debridement of the infected area and to perform an arterial bypass. Mr. Mcmahan was hospitalized at [facility] 09/05 with MRSA infection of his LLE vein harvest site. He required IV Vancomycin therapy. He then developed C. Difficile colitis. He was slowly tapered off oral Vancomycin therapy under the direction of an ID specialist Mr. Mcmahan was hospitalized 12/07 due to right sided weakness and slurred speech in the setting of atrial fibrillation. MRI was negative for ischemic stroke. Symptoms resolved following tPA administration. He has fully recovered from a neurologic perspective. He is now on Warfarin. Mr. Mcmahan was admitted to [facility] yesterday with shortness of breath and progressive edema. He has been started on IV diuretics and shown reasonable early response. Unfortunately laboratory studies are notable for acute on chronic renal insufficiency. The patient was equivocal regarding whether he would consider dialysis in the future. He expressed to cardiology that he was not interested in hemodialysis. Past Medical/Surgical History Medical: # CKD stage IV. Baseline creatinine 2.7 to 3.1 mg/dL w/ EGFR 18-20. Biopsy- proven FSGS. # Proteinuria. [place] kidney biopsy performed October 2003. Histology revealed FSGS. Patient received a 12 week course of steroid therapy followed by a slow taper. Urinary protein excretion dropped from 4 g per day to 1300 mg per day. Unfortunately, patient tolerated prednisone therapy poorly. He suffered mood swings and progressive weight gain. He declined further immunosuppressive therapy. Instead, he requested conservative management. With ARB therapy urinary protein excretion had remained approximately 1300 mg per day. Note: patient's renal biopsy did show marked interstitial fibrosis consistent with a long-term disorder, perhaps small vessel renal vascular disease # HTN # sHPT # History of microscopic hematuria. Cystoscopy May [address] Griffin showed no bladder or urethral lesions. Urine cytology was negative for malignancy # MRA of renal arteries October 2003 showed no focal stenosis # ASCVD s/p CABG 2003 [facility] # PVD s/p fem-popliteal bypass and left femoral artery stenting 2006. # Hypercholesterolemia - management per Dr. Wetzel # Atrial fibrillation s/p reentrant pathway ablation at [facility]. Atrial fibrillation persists - now treated with rate control and anticoagulation therapy # h/o UGI bleeding due to gastric ulcer with a visible vessel - treated with electrocautery. Gastric biopsies positive for H. pylori # Chronic/recurrent C diff colitis followed by Dr. Mejia in the infectious disease clinic # ARB therapy stopped during hospitalization due to progressive renal insufficiency Surgical: R radiocephalipc AVF placed August [address] Vargas, CABG -04, L CEA, fem-pop bypass + femoral artery stent '07 Allergies Coded Allergies: No Known Allergies (Verified , 05/03/17) Inpatient Medications Current Inpatient Medications Medications (Trade) Dose Ordered Sig/Maria Guadalupe Route Start Time Stop Time Status Last Admin Dose Admin Albuterol (Ventolin Hfa Inhaler) 2 puffs QID INH 05/04/17 09:00 4/13/18 08:59 05/04/17 16:54 2 PUFFS Benzonatate (Tessalon Perles Cap) 100 mg TID PRN PO 05/03/17 21:30 06/02/17 21:29 Clopidogrel Bisulfate (plAVix TAB) 75 mg QAM PO 05/04/17 09:00 06/03/17 08:59 05/04/17 08:55 75 MG Diltiazem HCl (TIAzac CAP) 180 mg DAILY PO 05/04/17 09:00 06/03/17 08:59 05/04/17 08:56 180 MG Lactobacillus Acidophilus (Floranex Tab) 1 tab TIDM PO 05/04/17 08:00 06/03/17 07:59 05/04/17 16:54 1 TAB Metoprolol Tartrate (Lopressor Tab) 25 mg BID PO 05/04/17 09:00 06/03/17 08:59 05/04/17 08:55 25 MG Multivitamins (Multivitamin Tab) 1 tab QAM PO 05/04/17 09:00 06/03/17 08:59 05/04/17 08:56 1 TAB Trazodone HCl (Desyrel Tab) 50 mg HS PO 05/04/17 21:00 06/03/17 20:59 05/04/17 00:17 50 MG Warfarin Sodium (Coumadin Tab) 2 mg SuTuWeThFrSa@1600 PO 05/04/17 16:00 06/03/17 15:59 05/04/17 16:54 2 MG Warfarin Sodium (Coumadin Tab) 4 mg Mo@1600 PO 05/09/17 16:00 06/08/17 15:59 Pantoprazole Sodium (Protonix Tab) 40 mg QAM PO 05/04/17 09:00 06/03/17 08:59 05/04/17 08:56 40 MG Furosemide 80 mg/ Syringe 8 ml @ 4 mls/min BID@0900,1500 IV 05/04/17 09:00 06/03/17 08:59 05/04/17 16:53 4 MLS/MIN Rosuvastatin Calcium (Crestor Tab) 40 mg HS PO 05/04/17 21:00 06/03/17 20:59 Family History Abdominal aortic aneurysm FATHER BROTHER Leukemia FATHER Social History Smoking Status: Never Smoker Alcohol Use: 2 bourbon + crenshaw a day Drug Use: none Marital Status: Housing Status: lives with significant other Occupation: retired Lives in [place] with his . Review of Systems A complete review of systems was performed. Pertinent positives are noted above. All other systems are negative. Physical Exam Date Time Temp Pulse Resp B/P (MAP) Pulse Ox O2 Delivery O2 Flow Rate FiO2 05/04/17 15:35 36.7 72 20 130/60 (83) 97 Nasal Cannula 2.0 05/04/17 12:00 95 Nasal Cannula 2.0 05/04/17 12:00 36.8 84 20 110/67 (81) 95 Nasal Cannula 2.0 05/04/17 08:00 36.8 95 22 101/62 (75) 93 Nasal Cannula 2.0 05/04/17 08:00 93 Nasal Cannula 2.0 05/04/17 04:00 98 Room Air 2.0 05/04/17 04:00 36.6 77 23 126/48 (74) 98 Nasal Cannula 2.0 05/03/17 23:59 36.8 79 23 135/64 (87) 96 Nasal Cannula 3.0 05/03/17 23:59 96 Room Air 3.0 05/03/17 22:48 36.8 105 22 110/67 95 Room Air 05/03/17 21:10 88 20 145/72 95 Room Air 05/03/17 19:17 76 20 117/69 93 Nasal Cannula 2.0 05/03/17 17:15 68 22 136/77 93 Nasal Cannula 2.0 General Appearance: WD/WN, no apparent distress Head: normocephalic, atraumatic Eyes: normal inspection, sclerae normal ENT: normal ENT inspection, pharynx normal Neck: supple, + JVD Respiratory/Chest: no respiratory distress, no accessory muscle use, + rales ( bibasilar) Cardiovascular: no gallop, + systolic murmur, + irregularly irregular Abdomen/GI: non tender, soft Back: normal inspection, no CVA tenderness Extremities/Musculoskelatal: + pertinent finding (+ 4 pitting BL LE edema, RC AVF with thrill and bruit) Neurologic/Psych: alert, normal mood/affect Skin: normal color Laboratory Results Last 24 Hours Test 05/03/17 17:05 05/04/17 05:03 White Blood Count 8.55 K/uL Red Blood Count 4.01 M/uL Hemoglobin 11.0 g/dL Hematocrit 34.8 % Mean Corpuscular Volume 86.8 fL Mean Corpuscular Hemoglobin 27.4 pg Mean Corpuscular Hemoglobin Concent 31.6 g/dl Platelet Count 184 K/uL Mean Platelet Volume 8.9 fL Neutrophils (%) (Auto) 72.5 % Lymphocytes (%) (Auto) 10.9 % Monocytes (%) (Auto) 15.9 % Eosinophils (%) (Auto) 0.5 % Basophils (%) (Auto) 0.1 % Neutrophils # (Auto) 6.20 K/uL Lymphocytes # (Auto) 0.93 K/uL Monocytes # (Auto) 1.36 K/uL Eosinophils # (Auto) 0.04 K/uL Basophils # (Auto) 0.01 K/uL RDW Standard Deviation 53.8 fL RDW Coefficient of Variation 16.9 % Immature Granulocyte % (Auto) 0.1 % Immature Granulocyte # (Auto) 0.01 K/uL Prothrombin Time 29.1 SECONDS 28.1 SECONDS Prothromb Time International Ratio 2.8 2.7 Activated Partial Thromboplast Time 36.9 SECONDS Partial Thromboplastin Ratio 1.4 Urine Color YELLOW Urine Appearance CLEAR Urine pH 5.0 Urine Specific [place] 1.011 Urine Protein 2+ Urine Glucose (UA) NEG Urine Ketones NEG Urine Occult Blood 2+ Urine Nitrite NEG Urine Bilirubin NEG Urine Urobilinogen NEG Urine Leukocyte Esterase NEG Urine WBC (Auto) 1-5 /hpf Urine RBC (Auto) 0-4 /hpf Urine Hyaline Casts (Auto) 1-5 /lpf Urine Epithelial Cells (Auto) 10-20 /lpf Urine Bacteria (Auto) NEG Sodium Level 138 mmol/L 140 mmol/L Potassium Level 4.0 mmol/L 3.7 mmol/L Chloride Level 105 mmol/L 106 mmol/L Carbon Dioxide Level 25 mmol/L 25 mmol/L Anion Gap 8.0 mmol/L 9.0 mmol/L Blood Urea Nitrogen 56 mg/dl 55 mg/dl Creatinine 4.79 mg/dl 4.76 mg/dl Est Creatinine Clear Calc Drug Dose 17.8 ml/min 17.5 ml/min Estimated GFR () 12.7 12.8 Estimated GFR (Non- 11.0 11.0 BUN/Creatinine Ratio 11.5 11.5 Random Glucose 99 mg/dl 98 mg/dl Calcium Level 8.2 mg/dl 8.0 mg/dl Total Bilirubin 0.6 mg/dl Aspartate Amino Transf (AST/SGOT) 18 U/L Alanine Aminotransferase (ALT/SGPT) 28 U/L Alkaline Phosphatase 81 U/L Troponin I 0.029 ng/ml Pro-B-Type Natriuretic Peptide 41803 pg/ml Total Protein 7.1 gm/dl Albumin 2.9 gm/dl Globulin 4.2 gm/dl Albumin/Globulin Ratio 0.7 Total Creatine Kinase 136 U/L Impression (1) Chronic kidney disease, stage IV (severe) (2) Acute kidney injury (3) Atrial fibrillation (4) PVD (peripheral vascular disease) (5) Chronic diastolic (congestive) heart failure (6) HTN (hypertension) Mr. Mcmahan is a 76-year-old male with CKD stage IV A3. 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 He has had conversations in the past with his mirror framer regarding the advanced nature of his renal dysfunction. The role of hemodialysis was discussed. Mr. Mcmahan is very reluctant to consider dialysis. He continues to express concerns. Unfortunately, due to his kidney disease and some underlying diastolic dysfunction, his volume status is becoming more difficult to manage. Urine output seems to be responding to furosemide 80 mg BID. However, the patient remains significantly hypervolemic. Creatinine has been stable since admission and metabolic profile is otherwise appropriate. 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 After discussing the plan of care in detail with the patient and his , we have opted to continue medical diuresis with close monitoring of renal function. We will continue a conversation about goals of care moving forward as we continue to reassess. UA is bland with acellular microscopy. If there is worsening of renal function, renal imaging (such as US) may be considered. Medications are appropriately dosed for renal function. Imaging studies including CXR were reviewed this morning. Cardiology consultation and TTE were reviewed. Outpatient records from nephrology were also reviewed. Recommendations -- Furosemide 80 mg BID -- Document I/O's -- Repeat metabolic profile tomorrow AM -- It is possible but unlikely that AVF would be appropriate for use if needed -- Avoid JOE/ARB at this time -- Feet elevated -- Sodium restricted diet -- Patient would benefit from lymphedema therapy at discharge
[2017-05-04 20:00] VITALS: BP 93/49; PULSE 77; TEMP 36.7; O2SAT 91
[2017-05-04] MEDS: ROSUVASTATIN CALCIUM 20 MG TAB PO SCH (21:05)
[2017-05-05] VITALS (9 sets, daily range): BP systolic 89–131; BP diastolic 47–75; PULSE 73–111; TEMP 36.3–37.2; O2SAT 91–95
[2017-05-05 06:47] LABS: ALBUMIN 2.7 gm/dl (3.4-5.0); CREATININE 4.84 mg/dl (0.60-1.40); PHOSPHORUS 3.4 mg/dl (2.5-4.9); POTASSIUM 3.2 mmol/L (3.5-5.1)
[2017-05-05] MEDS ORDERED: POTASSIUM CHLORIDE 10 MEQ TABCR PO STA (07:25)
[2017-05-05] MEDS: ALBUTEROL HFA 8 GM INHALER INH SCH ×4 (07:54→21:07)
[2017-05-05] MEDS: LACTOBACILLUS ACIDOPHILUS (FLORANEX) TAB PO SCH ×3 (07:55→16:47)
[2017-05-05] MEDS: METOPROLOL TARTRATE 25 MG TAB PO SCH ×2 (07:55→21:07)
[2017-05-05] MEDS: CLOPIDOGREL BISULFATE 75 MG TAB PO SCH (07:55)
[2017-05-05] MEDS: MULTIVITAMIN TAB PO SCH (07:55)
[2017-05-05] MEDS: PANTOprazole SOD 40 MG TAB PO SCH (07:55)
[2017-05-05] MEDS: DILTIAZEM HCL (TIAzac) 180 MG CAPCR PO SCH (07:56)
[2017-05-05] MEDS: FUROSEMIDE INJ 80 MG in SYRINGE 0 ML IV SCH ×2 (08:00→14:27)
--- NOTE | 2017-05-05 10:11 | Progress Note ---
Internal Med Progress Note Date of Service: May 05, 2017. Provider Documentation: SUBJECTIVE: sitting on the chair comfortably not hungry afebrile sob much better' says he is losing weight no cough no pain no nausea OBJECTIVE: Vital Signs-as noted below Exam: General-alert and oriented. Not in distress ENT-Normal hearing Neck-no neck masses Lungs-cta b/l no wheezing mild bibasilar crackles Heart-S1 and S2 heard regular rate and rhythm no murmurs Abdomen-Soft bowel sounds present non tender no distension Extremities-lower extremity edema present no erythema Neuro-alert and awake moves extremities Lab data as noted below. ASSESSMENT & PLAN: ACUTE KIDNEY INJURY / CKD IV CKD 4 with serum creatinine of 2.75 on 02/22/17 and estimated GFR of 25. presented with cr 4.79.cardio renal? on iv lasix cr 4.8 today Consulted Nephrology-await inputs patient says he does not want dialysis if needed. ACUTE ON CHRONIC LEFT VENTRICULAR DIASTOLIC CONGESTIVE HEART FAILURE Chronic left ventricular diastolic CHF. mostlikely secondary to MANUEL and volume retention Improving on IV furosemide. cardiology on board and appreciate inputs lost about 5kgs CORONARY ARTERY DISEASE stable on metoprolol and diltiazem. ATRIAL FIBRILLATION On metoprolol and diltiazem for rate control. On warfarin.INR 2.7 HYPERTENSION On metoprolol and diltiazem Will monitor. VTE PROPHYLAXIS on warfarin. DISPOSITION to be determined Vital Signs: Date Time Temp Pulse Resp B/P (MAP) Pulse Ox O2 Delivery O2 Flow Rate FiO2 05/05/17 04:00 Room Air 05/05/17 04:00 36.8 108 18 115/64 (81) 93 Room Air 05/05/17 00:25 36.9 96 20 124/75 (91) 94 Room Air 05/05/17 00:01 Room Air 05/04/17 20:00 36.7 77 20 93/49 (64) 91 Room Air 05/04/17 20:00 Room Air 05/04/17 16:00 92 Room Air 05/04/17 15:35 36.7 72 20 130/60 (83) 97 Nasal Cannula 2.0 05/04/17 12:00 95 Nasal Cannula 2.0 05/04/17 12:00 36.8 84 20 110/67 (81) 95 Nasal Cannula 2.0 Lab Results: Results Past 24 Hours Test 05/05/17 05:33 Range/Units Sodium Level 141 136-145 mmol/L Potassium Level 3.2 3.5-5.1 mmol/L Chloride Level 103 98-107 mmol/L Carbon Dioxide Level 28 21-32 mmol/L Anion Gap 10.0 3-11 mmol/L Blood Urea Nitrogen 55 7-18 mg/dl Creatinine 4.84 0.60-1.40 mg/dl Est Creatinine Clear Calc Drug Dose 17.1 ml/min Estimated GFR () 12.5 Estimated GFR (Non- 10.8 BUN/Creatinine Ratio 11.3 10-20 Random Glucose 106 70-99 mg/dl Calcium Level 8.0 8.5-10.1 mg/dl Phosphorus Level 3.4 2.5-4.9 mg/dl Albumin 2.7 3.4-5.0 gm/dl
--- NOTE | 2017-05-05 11:16 | ECHOCARDIOGRAM REPORT ---
*NOTICE TO RECEIVING CONSTITUTION PARTY AGENCY This information is strictly Confidential and protected under [place] law. [place] law prohibits you from making any further disclosure of this information unless further disclosure is expressly permitted by the written consent of the person to whom it pertains or is authorized by law. A general authorization for the release of medical or other information is not sufficient for this purpose. Hospital accepts no responsibility if the information is made available to any other person, INCLUDING THE PATIENT. Interpretation Summary * Name: Vida SANCHEZ JR Study Date: 05/05/2017 06:00 AM BP: 115/64 mmHg * [facility] HR: 114 * : 1940 (M/d/yyy) Gender: Male Height: 72 in * Age: 76 yrs Ethnicity: [place] Weight: 259 lb * Ordering Physician: Tova Márquez * Referring Physician: Self, Referred * Performed By: Celsa Maldonado RCS * * Reason For Study: CAD * BSA: 2.4 m2 * The study was technically adequate. * There is no comparison study available. * -- Conclusions -- * The rhythm is atrial fibrillation with rapid ventricular response. * Ejection Fraction = 65-70%. * There is moderate concentric left ventricular hypertrophy. * Severe biatrial enlargement. * The right ventricle is borderline dilated. * The right ventricular systolic function is qualitatively normal. * Aortic valve sclerosis moderate, without significant aortic valvular stenosis. * There is mild mitral regurgitation. * There is mild to moderate tricuspid regurgitation. * The estimated systolic PAP is 65mmhg. * Dilated inferior vena cava with reduced collapsability with sniff indicates an elevated right atrial pressure of 15 mmHg Procedure Details * A complete two-dimensional transthoracic echocardiogram was performed (2D, M-mode, Doppler and color flow Doppler). Left Ventricle * The left ventricle is normal in size. * The rhythm is atrial fibrillation with rapid ventricular response. * There is moderate concentric left ventricular hypertrophy. * Left ventricular systolic function is normal. * Ejection Fraction = 65-70%. * No regional wall motion abnormalities noted. Right Ventricle * The right ventricle is borderline dilated. * The right ventricular systolic function is qualitatively normal. Atria * The left atrium is severely dilated. * The right atrium is severely dilated. * There is no evidence of atrial septal defect, but resolution does not allow assessment for a patent foramen ovale. Mitral Valve * There is moderate mitral annular calcification. * There is no mitral valve stenosis. * There is mild mitral regurgitation. Tricuspid Valve * The tricuspid valve is normal. * There is no tricuspid stenosis. * There is mild to moderate tricuspid regurgitation. * The estimated systolic PAP is 65mmhg. Aortic Valve * Aortic valve sclerosis moderate, without significant aortic valvular stenosis. * Aortic stenosis is absent. * There is no significant aortic regurgitation. Pulmonic Valve * The pulmonary valve is inadequately visualized, but the Doppler data is adequate for interpretation. * There is no pulmonic valvular stenosis. * Mild pulmonic valvular regurgitation. Great Vessels * The aortic root is normal size. Pericardium/Pleural * There is no pericardial effusion. Great Vessels * The inferior vena cava is moderately dilated. * Dilated inferior vena cava with reduced collapsability with sniff indicates an elevated right atrial pressure of 15 mmHg Left Ventricular Diastolic Function * Pulse wave TDI of the anterior and posterior mitral annulas demonstrates abnormal LV relaxation MMode 2D Measurements and Calculations IVSd 1.8 cm IVSs 2.1 cm LVIDd 3.4 cm LVIDs 2.4 cm LVPWd 1.5 cm LVPWs 1.9 cm IVS/LVPW 1.2 FS 28.9 % EDV(Teich) 45.8 ml ESV(Teich) 19.8 ml EF(Teich) 56.8 % EDV(cubed) 37.7 ml ESV(cubed) 13.5 ml EF(cubed) 64.1 % % IVS thick 14.2 % % LVPW thick 25.2 % LV mass(C)d 220.1 grams LV mass(C)dI 92.6 grams/m\S\2 LV mass(C)s 205.6 grams LV mass(C)sI 86.5 grams/m\S\2 SV(Teich) 26.0 ml SI(Teich) 10.9 ml/m\S\2 SV(cubed) 24.1 ml SI(cubed) 10.1 ml/m\S\2 Ao root diam 3.3 cm Ao root area 8.4 cm\S\2 LA dimension 5.8 cm LA/Ao 1.8 LVOT diam 2.0 cm LVOT area 3.3 cm\S\2 LVAd ap4 33.5 cm\S\2 LVLd ap4 9.0 cm EDV(MOD-sp4) 101.7 ml EDV(sp4-el) 106.4 ml LVAs ap4 21.2 cm\S\2 LVLs ap4 8.0 cm ESV(MOD-sp4) 47.9 ml ESV(sp4-el) 48.1 ml EF(MOD-sp4) 52.9 % EF(sp4-el) 54.7 % LVAd ap2 35.9 cm\S\2 LVLd ap2 9.0 cm EDV(MOD-sp2) 115.8 ml EDV(sp2-el) 122.2 ml LVAs ap2 28.8 cm\S\2 LVLs ap2 8.9 cm ESV(MOD-sp2) 75.5 ml ESV(sp2-el) 78.5 ml EF(MOD-sp2) 34.8 % EF(sp2-el) 35.7 % LVLd %diff -0.12 % EDV(MOD-bp) 107.9 ml LVLs %diff 11.0 % ESV(MOD-bp) 61.1 ml EF(MOD-bp) 43.4 % SV(MOD-sp4) 53.8 ml SI(MOD-sp4) 22.6 ml/m\S\2 SV(MOD-sp2) 40.3 ml SI(MOD-sp2) 17.0 ml/m\S\2 SV(MOD-bp) 46.8 ml SI(MOD-bp) 19.7 ml/m\S\2 SV(sp4-el) 58.2 ml SI(sp4-el) 24.5 ml/m\S\2 SV(sp2-el) 43.7 ml SI(sp2-el) 18.4 ml/m\S\2 Doppler Measurements and Calculations MV E max aleksandr 155.8 cm/sec MV P1/2t max aleksandr 210.7 cm/sec MV P1/2t 81.4 msec MVA(P1/2t) 2.7 cm\S\2 MV dec slope 758.4 cm/sec\S\2 MV dec time 0.13 sec Ao V2 max 128.1 cm/sec Ao max PG 6.6 mmHg Ao max PG (full) 4.7 mmHg KAILYN(V,A) 1.7 cm\S\2 KAILYN(V,D) 1.7 cm\S\2 LV V1 max PG 1.8 mmHg LV V1 max 67.8 cm/sec MR max aleksandr 434.8 cm/sec MR max PG 75.6 mmHg PA V2 max 71.6 cm/sec PA max PG 2.2 mmHg PI max aleksandr 193.0 cm/sec PI max PG 14.9 mmHg PI dec slope 323.0 cm/sec\S\2 PI P1/2t 175.1 msec TR max aleksandr 343.4 cm/sec
--- NOTE | 2017-05-05 11:22 | Nephrology Progress Note ---
Nephrology Progress Note Date of Service May 05, 2017. Chief Complaint Acute on chronic renal insufficiency Subjective Mr. Mcmahan was resting comfortably in bed this morning. His breathing has improved slightly. He did have some difficulty sleeping overnight and is tired this morning. He remains on supplemental oxygen. Noted improvement in edema is described. Breathing has improved. He is ambulating in his hospital room. He denies chest pain or palpitations. He denies lightheadedness or dizziness. The patient reiterated that he will not consider dialysis. He acknowledged that difficulty of managing volume status with diuretics given his complicated kidney and cardiac conditions but he remains convinced that dialysis should not be considered part of the care plan. Review of Systems A complete review of systems was performed. Pertinent positives are noted above. All other systems are negative. Vital Signs Last 8 Hrs Date Time Temp Pulse Resp B/P (MAP) Pulse Ox O2 Delivery O2 Flow Rate FiO2 05/05/17 08:00 36.8 111 96/63 (74) 95 Nasal Cannula 2.0 05/05/17 08:00 95 Nasal Cannula 2.0 05/05/17 04:00 Room Air 05/05/17 04:00 36.8 108 18 115/64 (81) 93 Room Air Last Recorded Weight Weight (Kilograms): 116.600 Physical Exam General Appearance: WD/WN, no apparent distress Head: normocephalic, atraumatic Eyes: normal inspection, sclerae normal ENT: normal ENT inspection, pharynx normal Neck: supple, no JVD Respiratory/Chest: no respiratory distress, no accessory muscle use, + rales ( scattered bibasilar) Cardiovascular: + irregularly irregular Abdomen/GI: non tender, soft, + hernia (ventral) Extremities/Musculoskelatal: normal inspection, + pertinent finding (+2bL LE edema, AVF with thrill and bruit) Neurologic/Psych: alert, normal mood/affect Family History Abdominal aortic aneurysm FATHER BROTHER Leukemia FATHER Social History Smoking Status: Current every day smoker Alcohol Use: 2 bourbon + crenshaw a day Drug Use: none Marital Status: Housing Status: lives with significant other Occupation: retired Lives in [place] with his . Laboratory Results Past 24 Hours 05/05/17 05:33 Test 05/05/17 05:33 Anion Gap 10.0 mmol/L (3-11) Est Creatinine Clear Calc Drug Dose 17.1 ml/min Estimated GFR () 12.5 Estimated GFR (Non- 10.8 BUN/Creatinine Ratio 11.3 (10-20) Calcium Level 8.0 mg/dl (8.5-10.1) Phosphorus Level 3.4 mg/dl (2.5-4.9) Albumin 2.7 gm/dl (3.4-5.0) Allergies Coded Allergies: No Known Allergies (Verified , 05/03/17) Medications Current Inpatient Medications Medications (Trade) Dose Ordered Sig/Maria Guadalupe Route Start Time Stop Time Status Last Admin Dose Admin Albuterol (Ventolin Hfa Inhaler) 2 puffs QID INH 05/04/17 09:00 06/03/17 08:59 05/05/17 07:54 2 PUFFS Benzonatate (Tessalon Perles Cap) 100 mg TID PRN PO 05/03/17 21:30 06/02/17 21:29 Clopidogrel Bisulfate (plAVix TAB) 75 mg QAM PO 05/04/17 09:00 06/03/17 08:59 05/05/17 07:55 75 MG Diltiazem HCl (TIAzac CAP) 180 mg DAILY PO 05/04/17 09:00 06/03/17 08:59 05/05/17 07:56 180 MG Lactobacillus Acidophilus (Floranex Tab) 1 tab TIDM PO 05/04/17 08:00 06/03/17 07:59 05/05/17 07:55 1 TAB Metoprolol Tartrate (Lopressor Tab) 25 mg BID PO 05/04/17 09:00 06/03/17 08:59 05/05/17 07:55 25 MG Multivitamins (Multivitamin Tab) 1 tab QAM PO 05/04/17 09:00 06/03/17 08:59 05/05/17 07:55 1 TAB Trazodone HCl (Desyrel Tab) 50 mg HS PO 05/04/17 21:00 06/03/17 20:59 05/04/17 21:05 50 MG Warfarin Sodium (Coumadin Tab) 2 mg SuTuWeThFrSa@1600 PO 05/04/17 16:00 06/03/17 15:59 05/04/17 16:54 2 MG Warfarin Sodium (Coumadin Tab) 4 mg Mo@1600 PO 05/09/17 16:00 4/18/18 15:59 Pantoprazole Sodium (Protonix Tab) 40 mg QAM PO 05/04/17 09:00 06/03/17 08:59 05/05/17 07:55 40 MG Furosemide 80 mg/ Syringe 8 ml @ 4 mls/min BID@0900,1500 IV 05/04/17 09:00 06/03/17 08:59 05/05/17 08:00 4 MLS/MIN Rosuvastatin Calcium (Crestor Tab) 40 mg HS PO 05/04/17 21:00 06/03/17 20:59 05/04/17 21:05 40 MG Impression (1) Chronic kidney disease, stage IV (severe) (2) Acute kidney injury (3) Atrial fibrillation (4) PVD (peripheral vascular disease) (5) Chronic diastolic (congestive) heart failure (6) HTN (hypertension) Mr. Mcmahan is a 76-year-old male with CKD stage IV A3. 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 Medical history also notable for CAD, PAD and atrial fibrillation. He was admitted with hypervolemia and evidence of progressive worsening renal function. Thankfully, urine output is appropriate. Creatinine is stable. Hypokalemia secondary to diuresis is being treated. After my discussion with the patient and his again today, Mr. Mcmahan remains adamant that dialysis is not to be considered. We will continue to monitor renal function for now. I have ordered a repeat potassium for this afternoon. 20 mEq KCl was provided this morning and I started an additional 10 mEq BID. Mr. Mcmahan has atrial fibrillation his rate is being controlled with metoprolol and diltiazem. I discussed the plan of care with Tova Márquez PA-C this morning. Blood pressure is slightly low but acceptable. Overall, the patient feels well. UA is bland with acellular microscopy. Medications are appropriately dosed for renal function.. Recommendations -- Furosemide 80 mg BID -- Document I/O's -- Will monitor metabolic profile daily -- Repeat potassium ordered for this afternoon -- KCl 20 mEq BID started -- Avoid JOE/ARB at this time -- AVF intact but not appropriately mature for use, the patient remains decided that he will not start dialysis -- Feet elevated -- Sodium restricted diet -- Patient would benefit from lymphedema therapy at discharge
--- NOTE | 2017-05-05 11:37 | Cardiology Follow-Up ---
Subjective General Date of Service: May 05, 2017. Chief Complaint: CHF/ARF Pt evaluation today including: conversation w/ patient, conversation w/ family , physical exam, chart review, lab review, review of studies, conversation w/ executive search consultant, review of inpatient medication list History of Present Illness Patient feeling better. SOB improving. Not at baseline. Still requiring supplemental O2. Still with significant LE edema. Abdominal bloating improved. Dyspnea on exertion improving. No chest pain. no sense of palpitations or tachypalpitations. No dizziness. BP borderline hypotensive last night. Metoprolol held, resulting in elevated HR' s. Now improving. Allergies Coded Allergies: No Known Allergies (Verified , 05/03/17) Social History Smoking Status: Never Smoker Hx Tobacco Use In Past Year?: No Hx Alcohol Use - Type And Amou: Yes (1 glass bourbon daily) Hx Substance Use - Type And Am: No Problem List Medical Problems: (1) ARF (acute renal failure) Status: Acute (2) CHF (congestive heart failure) Status: Acute (3) CVA (cerebral vascular accident) Status: Acute (4) Elevated troponin Status: Acute Review of Systems Respiratory: + cough, + dyspnea on exertion, No sputum, No wheezing, No dyspnea at rest Cardiac: + edema, No chest pain, No orthopnea, No PND, No palpitations Physical Exam Vital Signs Last Vital Signs Documentation Date Time Temp Pulse Resp B/P (MAP) Pulse Ox O2 Delivery O2 Flow Rate FiO2 05/05/17 08:00 36.8 111 96/63 (74) 95 Nasal Cannula 2.0 05/05/17 04:00 18 Physical Exam Constitutional: General Apperance: overweight Level of Distress: NAD, acutely ill, chronically ill Psychiatric: Mental Status: active & alert Orientation: to time, to place, to person Head: normocephalic Eyes: Pupils: PERRLA Neck: supple Lungs: Auscultation: deminished air movement, wet rales/crackles Cardiovascular: Heart Auscultation: II/ TARA, irregular rate rhythm Abdomen: Inspection & Palpation: soft, distended (mildly) Extremities: edema (2+ to knees) Assessment and Plan Assessment and Plan IMPRESSION: Complex 76-year-old male 1. Acute on chronic right greater than left and diastolic HF exacerbation with evidence of volume overload 2. Acute on chronic kidney disease with worsening creatinine noted on admission 3. Chronic afib, rates controlled. on Coumadin 4. CAD s/p CABG in 2003. No ischemic EKG changes. Negative cardiac enzymes. Preserved LV Function 5. Hypertension - controlled, borderline hypotension PLAN: Patient and continuously decline dialysis therapy. Good diuresis thus far with furosemide 80 mg BID. Continue today. Will discontinue diltiazem due to potential side effect of worsening LE edema/ fluid status. Continue metoprolol 25 mg BID for now, but likely will need to increase for rate control. Low salt/sodium diet. Monitor I+O's Appreciate nephrology input. He is aware fluid status may or may not improve with IV diuretics. Continue all other cardiac meds. Case discussed with Dr. Sena. Will follow. CARDIOLOGY ATTENDING ADDENDUM: The patient was seen and personally examined. Agree with Tova Márquez PA-C's findings and plans as documented above. Will DC diltiazem and favor rate control with metoprolol, in effort to minimize LE edema. Laboratory Results Last 24 Hours Test 05/05/17 05:33 Sodium Level 141 mmol/L Potassium Level 3.2 mmol/L Chloride Level 103 mmol/L Carbon Dioxide Level 28 mmol/L Anion Gap 10.0 mmol/L Blood Urea Nitrogen 55 mg/dl Creatinine 4.84 mg/dl Est Creatinine Clear Calc Drug Dose 17.1 ml/min Estimated GFR () 12.5 Estimated GFR (Non- 10.8 BUN/Creatinine Ratio 11.3 Random Glucose 106 mg/dl Calcium Level 8.0 mg/dl Phosphorus Level 3.4 mg/dl Albumin 2.7 gm/dl
[2017-05-05] MEDS: POTASSIUM CHLORIDE 10 MEQ TABCR PO SCH (14:27)
[2017-05-05] MEDS: WARFARIN SOD 2 MG TAB PO SCH (16:47)
[2017-05-05] MEDS: TRAZODONE HCL 50 MG TAB PO SCH (21:07)
[2017-05-05] MEDS: ROSUVASTATIN CALCIUM 20 MG TAB PO SCH (21:07)
[2017-05-06 04:00] VITALS: BP 130/68; PULSE 87; TEMP 37; O2SAT 93
[2017-05-06 06:51] LABS: ALBUMIN 2.8 gm/dl (3.4-5.0); CALCIUM 7.9 mg/dl (8.5-10.1); CREATININE 4.56 mg/dl (0.60-1.40); PHOSPHORUS 3.3 mg/dl (2.5-4.9); POTASSIUM 3.1 mmol/L (3.5-5.1)
[2017-05-06 07:43] VITALS: BP 108/61; PULSE 86; TEMP 36.9; O2SAT 91
[2017-05-06] MEDS: PANTOprazole SOD 40 MG TAB PO SCH (07:46)
[2017-05-06] MEDS: MULTIVITAMIN TAB PO SCH (07:46)
[2017-05-06] MEDS: METOPROLOL TARTRATE 25 MG TAB PO SCH ×2 (07:46→20:38)
[2017-05-06] MEDS: POTASSIUM CHLORIDE 10 MEQ TABCR PO SCH ×2 (07:47→13:44)
[2017-05-06] MEDS: LACTOBACILLUS ACIDOPHILUS (FLORANEX) TAB PO SCH ×3 (07:47→15:57)
[2017-05-06] MEDS: FUROSEMIDE INJ 80 MG in SYRINGE 0 ML IV SCH ×2 (07:48→15:57)
[2017-05-06] MEDS: CLOPIDOGREL BISULFATE 75 MG TAB PO SCH (07:48)
[2017-05-06] MEDS: ALBUTEROL HFA 8 GM INHALER INH SCH ×4 (07:48→20:37)
[2017-05-06] MEDS ORDERED: SODIUM CHLORIDE 0.65% NA SOLN 45 ML (OCEAN) ONE (08:38)
[2017-05-06] MEDS ORDERED: VANC5CAP PO (08:41)
[2017-05-06] MEDS ORDERED: POTASSIUM CHLORIDE 10 MEQ TABCR PO STA (08:43)
[2017-05-06] MEDS: RASPBERRY SYRUP 5 ML UDP PO SCH (09:22)
[2017-05-06] MEDS: VANCOMYCIN HCL 125 MG/2.5ML SOLN PO SCH (09:22)
[2017-05-06 11:46] VITALS: BP 102/55; TEMP 36.6; O2SAT 93
--- NOTE | 2017-05-06 12:00 | Cardiology Follow-Up ---
Subjective General Date of Service: May 06, 2017. Chief Complaint: CHF/ARF Pt evaluation today including: conversation w/ patient, conversation w/ family , physical exam, chart review, lab review, review of studies, conversation w/ quality consultant, review of inpatient medication list History of Present Illness Patient feeling better. SOB improving. Off supplemental O2. Good diuresis. Renal function stable. Denies chest pain. No dizziness. No orthopnea. Cough improving. at bedside. Allergies Coded Allergies: No Known Allergies (Verified , 05/03/17) Social History Smoking Status: Never Smoker Hx Tobacco Use In Past Year?: No Hx Alcohol Use - Type And Amou: Yes (1 glass bourbon daily) Hx Substance Use - Type And Am: No Problem List Medical Problems: (1) ARF (acute renal failure) Status: Acute (2) CHF (congestive heart failure) Status: Acute (3) CVA (cerebral vascular accident) Status: Acute (4) Elevated troponin Status: Acute Review of Systems Respiratory: + cough, + dyspnea on exertion, No shortness of breath, No dyspnea at rest, No hemoptysis Cardiac: + edema, No chest pain, No orthopnea, No PND, No palpitations Physical Exam Vital Signs Last Vital Signs Documentation Date Time Temp Pulse Resp B/P (MAP) Pulse Ox O2 Delivery O2 Flow Rate FiO2 05/06/17 08:00 Room Air 05/06/17 07:43 36.9 86 21 108/61 (77) 91 05/05/17 16:00 2.0 Physical Exam Constitutional: General Apperance: overweight Level of Distress: NAD, acutely ill, chronically ill Psychiatric: Mental Status: active & alert Orientation: to time, to place, to person Head: normocephalic Eyes: Pupils: PERRLA Neck: supple Lungs: Auscultation: deminished air movement, wet rales/crackles Cardiovascular: Heart Auscultation: II/ TARA, irregular rate rhythm Abdomen: Inspection & Palpation: soft, distended (mildly) Extremities: edema (2+ to knees) Assessment and Plan Assessment and Plan IMPRESSION: Complex 76-year-old male 1. Acute on chronic diastolic HF exacerbation with evidence of volume overload 2. Acute on chronic kidney disease with worsening creatinine noted on admission 3. Chronic afib, rates controlled. on Coumadin 4. CAD s/p CABG in 2003. No ischemic EKG changes. Negative cardiac enzymes. Preserved LV Function 5. Hypertension - controlled, borderline hypotension PLAN: Good diuresis thus far with furosemide 80 mg BID. Continue today. Discussed with nephrology provider, in agreement. supplement potassium. Recheck potassium and magnesium this afternoon. diltiazem discontinued. Monitor HR's. Titrate metoprolol as needed. Continue Coumadin Low salt/sodium diet. Monitor I+O's Appreciate nephrology input. Patient not interested in pursing dialysis. He has fistula but not mature. Continue all other cardiac meds. Case discussed with Dr. Sena. Will follow. CARDIOLOGY ATTENDING ADDENDUM: The patient was seen and personally examined. Agree with Tova Márquez PA-C's findings and plans as documented above with additions as noted below. Subjective patient states his breathing feels progressively better. 3.3 L of urine output documented yesterday and 2.7 documented thus far today. Exam: Mildly decreased breath sounds at the bases, edema of the lower extremities seems subtly improved. Impression: As above with acute on chronic diastolic heart failure, MANUEL on chronic kidney disease Plan: Continue furosemide 80 mg twice daily. Potassium still low at repeat at 3.1 today. He received another 20 mEq or before this blood draw was performed. And his daily replacement was increased to 20 mg twice daily. At present, telemetry reveals atrial fibrillation with relatively good rate control, his ventricular rate is up to 105 bpm with eating his evening meal. He has no significant PVCs. I think we should proceed with his current dose of potassium replacement to avoid over replacement. INR is at goal. Dr. Mcbride to follow patient tomorrow 05/07/17. Laboratory Results Last 24 Hours Test 05/05/17 15:55 05/06/17 05:18 Potassium Level 3.6 mmol/L 3.1 mmol/L Prothrombin Time 20.8 SECONDS Prothromb Time International Ratio 2.0 Sodium Level 140 mmol/L Chloride Level 101 mmol/L Carbon Dioxide Level 30 mmol/L Anion Gap 9.0 mmol/L Blood Urea Nitrogen 57 mg/dl Creatinine 4.56 mg/dl Est Creatinine Clear Calc Drug Dose 17.9 ml/min Estimated GFR () 13.5 Estimated GFR (Non- 11.6 BUN/Creatinine Ratio 12.5 Random Glucose 106 mg/dl Calcium Level 7.9 mg/dl Phosphorus Level 3.3 mg/dl Albumin 2.8 gm/dl
--- NOTE | 2017-05-06 12:10 | Nephrology Progress Note ---
Nephrology Progress Note Date of Service May 06, 2017. Chief Complaint Acute on chronic renal insufficiency Subjective No acute events overnight. Anderson was seen and evaluated in the ICU this morning. He was resting comfortably. He notes significant improvement in edema. He is breathing comfortably. Appetite is appropriate. No lightheadedness or dizziness. Anderson denies chest pain or palpitations. Review of Systems A complete review of systems was performed. Pertinent positives are noted above. All other systems are negative. Vital Signs Last 8 Hrs Date Time Temp Pulse Resp B/P (MAP) Pulse Ox O2 Delivery O2 Flow Rate FiO2 05/06/17 08:00 Room Air 05/06/17 07:43 36.9 86 21 108/61 (77) 91 Room Air Last Recorded Weight Weight (Kilograms): 113.100 Physical Exam General Appearance: WD/WN, no apparent distress Head: normocephalic, atraumatic Eyes: normal inspection, sclerae normal ENT: normal ENT inspection, pharynx normal Neck: supple, no JVD Respiratory/Chest: lungs clear, no respiratory distress, no accessory muscle use Cardiovascular: no gallop, + irregularly irregular Abdomen/GI: non tender, soft Extremities/Musculoskelatal: normal inspection, + pedal edema Neurologic/Psych: alert, normal mood/affect Family History Abdominal aortic aneurysm FATHER BROTHER Leukemia FATHER Social History Smoking Status: Current every day smoker Alcohol Use: 2 bourbon + crenshaw a day Drug Use: none Marital Status: Housing Status: lives with significant other Occupation: retired Lives in [place] with his . Laboratory Results Past 24 Hours 05/05/17 15:55 05/06/17 05:18 Test 05/06/17 05:18 Prothrombin Time 20.8 SECONDS (9.0-12.0) Prothromb Time International Ratio 2.0 (0.9-1.1) Anion Gap 9.0 mmol/L (3-11) Est Creatinine Clear Calc Drug Dose 17.9 ml/min Estimated GFR () 13.5 Estimated GFR (Non- 11.6 BUN/Creatinine Ratio 12.5 (10-20) Calcium Level 7.9 mg/dl (8.5-10.1) Phosphorus Level 3.3 mg/dl (2.5-4.9) Albumin 2.8 gm/dl (3.4-5.0) Allergies Coded Allergies: No Known Allergies (Verified , 05/03/17) Medications Current Inpatient Medications Medications (Trade) Dose Ordered Sig/Maria Guadalupe Route Start Time Stop Time Status Last Admin Dose Admin Albuterol (Ventolin Hfa Inhaler) 2 puffs QID INH 05/04/17 09:00 06/03/17 08:59 05/06/17 07:48 2 PUFFS Benzonatate (Tessalon Perles Cap) 100 mg TID PRN PO 05/03/17 21:30 06/02/17 21:29 Clopidogrel Bisulfate (plAVix TAB) 75 mg QAM PO 05/04/17 09:00 06/03/17 08:59 05/06/17 07:48 75 MG Lactobacillus Acidophilus (Floranex Tab) 1 tab TIDM PO 05/04/17 08:00 06/03/17 07:59 05/06/17 11:44 1 TAB Metoprolol Tartrate (Lopressor Tab) 25 mg BID PO 05/04/17 09:00 06/03/17 08:59 05/06/17 07:46 25 MG Multivitamins (Multivitamin Tab) 1 tab QAM PO 05/04/17 09:00 06/03/17 08:59 05/06/17 07:46 1 TAB Trazodone HCl (Desyrel Tab) 50 mg HS PO 05/04/17 21:00 06/03/17 20:59 05/05/17 21:07 50 MG Warfarin Sodium (Coumadin Tab) 2 mg SuTuWeThFrSa@1600 PO 05/04/17 16:00 06/03/17 15:59 05/05/17 16:47 2 MG Warfarin Sodium (Coumadin Tab) 4 mg Mo@1600 PO 05/09/17 16:00 06/08/17 15:59 Pantoprazole Sodium (Protonix Tab) 40 mg QAM PO 05/04/17 09:00 06/03/17 08:59 05/06/17 07:46 40 MG Furosemide 80 mg/ Syringe 8 ml @ 4 mls/min BID@0900,1500 IV 05/04/17 09:00 06/03/17 08:59 05/06/17 07:48 4 MLS/MIN Rosuvastatin Calcium (Crestor Tab) 40 mg HS PO 05/04/17 21:00 06/03/17 20:59 05/05/17 21:07 40 MG Vancomycin HCl (Vancomycin Oral Soln) 125 mg DAILY PO 05/06/17 09:00 05/20/17 08:59 05/06/17 09:22 125 MG Raspberry (Raspberry Syrup 5ml Cup) 5 ml QAM PO 05/06/17 09:00 05/20/17 08:59 05/06/17 09:22 5 ML Potassium Chloride (Klor-Con M10) 20 meq [id number] PO 05/06/17 14:00 06/04/17 13:59 Impression (1) Chronic kidney disease, stage IV (severe) (2) Acute kidney injury (3) Atrial fibrillation (4) PVD (peripheral vascular disease) (5) Chronic diastolic (congestive) heart failure (6) HTN (hypertension) Mr. Mcmahan is a 76-year-old male with CKD stage IV A3. 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 Medical history also notable for CAD, PAD and atrial fibrillation. He was admitted with hypervolemia and evidence of progressive worsening renal function. Patient has refused dialysis. Thankfully, urine output is appropriate. Creatinine is stable. Hypokalemia secondary to diuresis is being treated. We will continue to monitor renal function for now. I have ordered a repeat potassium for this afternoon. 20 mEq KCl was provided this morning and I started an additional 20 mEq BID. Mr. Mcmahan has atrial fibrillation his rate is being controlled with metoprolol and diltiazem. I again reviewed the plan of care with Tova Márquez PA-C this morning. Blood pressure is slightly low but acceptable. Overall, the patient feels well. UA is bland with acellular microscopy. Medications are appropriately dosed for renal function. Recommendations -- Furosemide 80 mg BID -- Document I/O's -- Monitor metabolic profile daily -- Repeat potassium ordered for this afternoon -- KCl 20 mEq BID -- Avoid JOE/ARB at this time -- Feet elevated -- Sodium restricted diet -- Patient would benefit from lymphedema therapy at discharge -- Dr. Rodrigues will take over Mr. Mcmahan's care tomorrow
[2017-05-06 13:26] LABS: POTASSIUM 3.1 mmol/L (3.5-5.1)
[2017-05-06] MEDS: WARFARIN SOD 2 MG TAB PO SCH (15:58)
[2017-05-06 16:04] VITALS: BP 119/69; TEMP 36.4; O2SAT 94
--- NOTE | 2017-05-06 19:26 | Progress Note ---
Internal Med Progress Note Date of Service: May 06, 2017. Provider Documentation: SUBJECTIVE: sitting on the chair comfortably eating ok sob improving no chest pain n o nausea moved bowels afebrile OBJECTIVE: Vital Signs-as noted below Exam: General-alert and oriented. Not in distress ENT-Normal hearing Neck-no neck masses Lungs-cta b/l no wheezing mild bibasilar crackles Heart-S1 and S2 heard regular rate and rhythm no murmurs Abdomen-Soft bowel sounds present non tender no distension Extremities-lower extremity edema present no erythema Neuro-alert and awake moves extremities Lab data as noted below. ASSESSMENT & PLAN: ACUTE KIDNEY INJURY / CKD IV CKD 4 with serum creatinine of 2.75 on 02/22/17 and estimated GFR of 25. presented with cr 4.79.cardio renal? on iv lasix cr 4.5 today Consulted Nephrology-await inputs patient says he does not want dialysis if needed. continue to monitor ACUTE ON CHRONIC LEFT VENTRICULAR DIASTOLIC CONGESTIVE HEART FAILURE Chronic left ventricular diastolic CHF. mostlikely secondary to MANUEL and volume retention Improving on IV furosemide. cardiology on board and appreciate inputs lost about 8kgs continue same CORONARY ARTERY DISEASE stable on metoprolol and diltiazem. ATRIAL FIBRILLATION On metoprolol and diltiazem for rate control. On warfarin.INR 2.0 HYPERTENSION On metoprolol and diltiazem Will monitor. VTE PROPHYLAXIS on warfarin. DISPOSITION to be determined pt/ot Vital Signs: Date Time Temp Pulse Resp B/P (MAP) Pulse Ox O2 Delivery O2 Flow Rate FiO2 05/06/17 16:04 36.4 21 119/69 (86) 94 Room Air 05/06/17 16:00 Room Air 05/06/17 12:00 Room Air 05/06/17 11:46 36.6 18 102/55 (71) 93 Room Air 05/06/17 08:00 Room Air 05/06/17 07:43 36.9 86 21 108/61 (77) 91 Room Air 05/06/17 04:00 37.0 87 18 130/68 (88) 93 Room Air 05/06/17 04:00 Room Air 05/06/17 00:01 Room Air 05/05/17 23:56 37.2 80 20 115/68 (84) 91 Room Air 05/05/17 20:17 36.7 79 22 97/52 (67) 92 Room Air 05/05/17 20:00 Room Air 05/05/17 19:34 23 97/52 (67) 91 Room Air Lab Results: Results Past 24 Hours Test 05/06/17 05:18 05/06/17 12:56 Range/Units Prothrombin Time 20.8 9.0-12.0 SECONDS Prothromb Time International Ratio 2.0 0.9-1.1 Sodium Level 140 136-145 mmol/L Potassium Level 3.1 3.1 3.5-5.1 mmol/L Chloride Level 101 98-107 mmol/L Carbon Dioxide Level 30 21-32 mmol/L Anion Gap 9.0 3-11 mmol/L Blood Urea Nitrogen 57 7-18 mg/dl Creatinine 4.56 0.60-1.40 mg/dl Est Creatinine Clear Calc Drug Dose 17.9 ml/min Estimated GFR () 13.5 Estimated GFR (Non- 11.6 BUN/Creatinine Ratio 12.5 10-20 Random Glucose 106 70-99 mg/dl Calcium Level 7.9 8.5-10.1 mg/dl Phosphorus Level 3.3 2.5-4.9 mg/dl Albumin 2.8 3.4-5.0 gm/dl Magnesium Level 2.0 1.8-2.4 mg/dl
[2017-05-06 20:00] VITALS: BP 119/69; PULSE 101; TEMP 36.7; O2SAT 95; O2SAT 97
[2017-05-06] MEDS: TRAZODONE HCL 50 MG TAB PO SCH (20:37)
[2017-05-06] MEDS: ROSUVASTATIN CALCIUM 20 MG TAB PO SCH (20:39)
[2017-05-06 23:10] VITALS: BP 125/77; PULSE 97; TEMP 36.9; O2SAT 92
[2017-05-07] VITALS (7 sets, daily range): BP systolic 96–129; BP diastolic 56–78; PULSE 84–106; TEMP 36.5–37.1; O2SAT 91–96
[2017-05-07] MEDS ORDERED: TRAZODONE HCL 50 MG TAB PO ONE (02:30)
[2017-05-07 07:02] LABS: INR 2.1 (0.9-1.1)
[2017-05-07 07:24] LABS: ALBUMIN 2.9 gm/dl (3.4-5.0); CREATININE 4.36 mg/dl (0.60-1.40); POTASSIUM 3.3 mmol/L (3.5-5.1)
[2017-05-07 07:25] LABS: PHOSPHORUS 3.3 mg/dl (2.5-4.9)
[2017-05-07] MEDS: ALBUTEROL HFA 8 GM INHALER INH SCH ×4 (07:54→20:54)
[2017-05-07] MEDS: LACTOBACILLUS ACIDOPHILUS (FLORANEX) TAB PO SCH ×3 (07:54→16:43)
[2017-05-07] MEDS: POTASSIUM CHLORIDE 10 MEQ TABCR PO SCH ×2 (07:54→15:38)
[2017-05-07] MEDS: PANTOprazole SOD 40 MG TAB PO SCH (07:55)
[2017-05-07] MEDS: FUROSEMIDE INJ 80 MG in SYRINGE 0 ML IV SCH ×2 (07:55→15:37)
[2017-05-07] MEDS: CLOPIDOGREL BISULFATE 75 MG TAB PO SCH (07:55)
[2017-05-07] MEDS: MULTIVITAMIN TAB PO SCH (07:55)
[2017-05-07] MEDS: RASPBERRY SYRUP 5 ML UDP PO SCH (07:56)
[2017-05-07] MEDS: VANCOMYCIN HCL 125 MG/2.5ML SOLN PO SCH (07:56)
[2017-05-07] MEDS: METOPROLOL TARTRATE 25 MG TAB PO SCH ×2 (08:02→20:57)
--- NOTE | 2017-05-07 12:28 | Cardiology Follow-Up ---
Subjective General Date of Service: May 07, 2017. Chief Complaint: CHF/ARF Pt evaluation today including: conversation w/ patient, physical exam, chart review, lab review, review of studies, review of inpatient medication list History of Present Illness The patient is a 76 year old male seen in follow-up. Creatinine continues to trend downward. Urine output adequate with current diuretic therapy and negative fluid balance of approximately 3 L over the past 24 hours. Lower extremity edema unchanged. Patient continues to refuse possibility of dialysis. present at bedside. Patient offers no other complaints at this time. Allergies Coded Allergies: No Known Allergies (Verified , 05/03/17) Social History Smoking Status: Never Smoker Hx Tobacco Use In Past Year?: No Hx Alcohol Use - Type And Amou: Yes (1 glass bourbon daily) Hx Substance Use - Type And Am: No Problem List Medical Problems: (1) ARF (acute renal failure) Status: Acute (2) CHF (congestive heart failure) Status: Acute (3) CVA (cerebral vascular accident) Status: Acute (4) Elevated troponin Status: Acute Review of Systems Respiratory: + dyspnea on exertion, No cough, No sputum, No wheezing, No shortness of breath, No dyspnea at rest, No hemoptysis Cardiac: + edema, No chest pain, No orthopnea, No claudication, No palpitations Physical Exam Vital Signs Last Vital Signs Documentation Date Time Temp Pulse Resp B/P (MAP) Pulse Ox O2 Delivery O2 Flow Rate FiO2 05/07/17 12:00 Room Air 05/07/17 11:35 36.5 92 18 96/59 (71) 96 05/05/17 16:00 2.0 Physical Exam Constitutional: General Apperance: overweight Level of Distress: NAD, acutely ill, chronically ill Psychiatric: Mental Status: active & alert Orientation: to time, to place, to person Head: normocephalic Eyes: Pupils: PERRLA Neck: supple Lungs: Auscultation: deminished air movement, wet rales/crackles Cardiovascular: Heart Auscultation: II/ TARA, irregular rate rhythm Abdomen: Inspection & Palpation: soft, distended (mildly) Extremities: no cyanosis, no ulcers, edema (2+ to knees) Neurologic: Gait & Station: pertinent finding (No focal motor deficit) Cranial Nerves: grossly intact Assessment and Plan Assessment and Plan IMPRESSION: 1. Acute on chronic diastolic HF 2. Acute on chronic kidney disease with worsening creatinine noted on admission -Creatinine trending downward slightly today -Diuresing adequately with current diuretic therapy (-3 L over the past 24 hour) 3. Chronic rate controlled atrial fibrillation with therapeutic INR 4. CAD s/p CABG in 2003. No ischemic EKG changes. Negative cardiac enzymes. Preserved LV Function 5. Hypertension - controlled, borderline hypotension PLAN: Continue IV furosemide 80 mg twice daily. Monitor fluid balance, weight, GFR, electrolytes daily. Supplement potassium as needed. Continue metoprolol 25 mg twice daily and Coumadin for goal INR of 2.0-3.0. Recommend low-sodium diet. Patient refusing dialysis currently. Appreciate nephrology input. Continue other cardiac medications as previously ordered. Laboratory Results Last 24 Hours Test 05/06/17 12:56 05/07/17 05:57 Potassium Level 3.1 mmol/L 3.3 mmol/L Magnesium Level 2.0 mg/dl Prothrombin Time 22.1 SECONDS Prothromb Time International Ratio 2.1 Sodium Level 141 mmol/L Chloride Level 100 mmol/L Carbon Dioxide Level 34 mmol/L Anion Gap 8.0 mmol/L Blood Urea Nitrogen 55 mg/dl Creatinine 4.36 mg/dl Est Creatinine Clear Calc Drug Dose 18.3 ml/min Estimated GFR () 14.2 Estimated GFR (Non- 12.3 BUN/Creatinine Ratio 12.6 Random Glucose 97 mg/dl Calcium Level 8.0 mg/dl Phosphorus Level 3.3 mg/dl Albumin 2.9 gm/dl
[2017-05-07] MEDS ORDERED: POTASSIUM CHLORIDE 20 MEQ TABCR PO STA (15:10)
--- NOTE | 2017-05-07 15:21 | Nephrology Progress Note ---
Nephrology Progress Note Date of Service May 07, 2017. Chief Complaint Acute on chronic kidney injury Subjective Mr. Mcmahan was seen and examined in the ICU this morning. His was present at the time of my evaluation. Mr. Mcmahan reports that his breathing and LE edema are improved following IV Furosemide administration. Review of Systems Constitutional: No fever Cardiovascular: No chest pain Respiratory: No dyspnea at rest Abdomen: No pain, No nausea, No vomiting Extremities: + leg edema A complete review of systems was performed. Pertinent positives are noted above. All other systems are negative. Vital Signs Last 8 Hrs Date Time Temp Pulse Resp B/P (MAP) Pulse Ox O2 Delivery O2 Flow Rate FiO2 05/07/17 14:59 36.8 84 18 125/57 (79) 91 Room Air 05/07/17 12:00 Room Air 05/07/17 11:35 36.5 92 18 96/59 (71) 96 05/07/17 08:00 36.5 101 18 99/56 (70) 92 Room Air 05/07/17 08:00 Room Air I & O 24-Hour Column 05/08/17 08:00 Intake Total 520 ml Output Total 450 ml Balance 70 ml Last Recorded Weight Weight (Kilograms): 108.100 Physical Exam General Appearance: no apparent distress Head: normocephalic, atraumatic Eyes: PERRL, EOMI Neck: no adenopathy Respiratory/Chest: lungs clear, no respiratory distress Cardiovascular: regular rate, rhythm Abdomen/GI: normal bowel sounds, non tender, soft Extremities/Musculoskelatal: + swelling (3+ pretibial pitting edema) Neurologic/Psych: alert, oriented x 3 Family History Abdominal aortic aneurysm FATHER BROTHER Leukemia FATHER Social History Smoking Status: Current every day smoker Alcohol Use: 2 bourbon + crenshaw a day Drug Use: none Marital Status: Housing Status: lives with significant other Occupation: retired Lives in [place] with his . Laboratory Results Past 24 Hours 05/07/17 05:57 Test 05/07/17 05:57 Prothrombin Time 22.1 SECONDS (9.0-12.0) Prothromb Time International Ratio 2.1 (0.9-1.1) Anion Gap 8.0 mmol/L (3-11) Est Creatinine Clear Calc Drug Dose 18.3 ml/min Estimated GFR () 14.2 Estimated GFR (Non- 12.3 BUN/Creatinine Ratio 12.6 (10-20) Calcium Level 8.0 mg/dl (8.5-10.1) Phosphorus Level 3.3 mg/dl (2.5-4.9) Albumin 2.9 gm/dl (3.4-5.0) Allergies Coded Allergies: No Known Allergies (Verified , 05/03/17) Medications Current Inpatient Medications Medications (Trade) Dose Ordered Sig/Maria Guadalupe Route Start Time Stop Time Status Last Admin Dose Admin Albuterol (Ventolin Hfa Inhaler) 2 puffs QID INH 05/04/17 09:00 06/03/17 08:59 05/07/17 12:01 2 PUFFS Benzonatate (Tessalon Perles Cap) 100 mg TID PRN PO 05/03/17 21:30 06/02/17 21:29 Clopidogrel Bisulfate (plAVix TAB) 75 mg QAM PO 05/04/17 09:00 06/03/17 08:59 05/07/17 07:55 75 MG Lactobacillus Acidophilus (Floranex Tab) 1 tab TIDM PO 05/04/17 08:00 06/03/17 07:59 05/07/17 11:30 1 TAB Metoprolol Tartrate (Lopressor Tab) 25 mg BID PO 05/04/17 09:00 06/03/17 08:59 05/07/17 08:02 25 MG Multivitamins (Multivitamin Tab) 1 tab QAM PO 05/04/17 09:00 06/03/17 08:59 05/07/17 07:55 1 TAB Trazodone HCl (Desyrel Tab) 50 mg HS PO 05/04/17 21:00 06/03/17 20:59 05/06/17 20:37 50 MG Warfarin Sodium (Coumadin Tab) 2 mg SuTuWeThFrSa@1600 PO 05/04/17 16:00 06/03/17 15:59 05/06/17 15:58 2 MG Warfarin Sodium (Coumadin Tab) 4 mg Mo@1600 PO 05/09/17 16:00 06/08/17 15:59 Pantoprazole Sodium (Protonix Tab) 40 mg QAM PO 05/04/17 09:00 06/03/17 08:59 05/07/17 07:55 40 MG Furosemide 80 mg/ Syringe 8 ml @ 4 mls/min BID@0900,1500 IV 05/04/17 09:00 06/03/17 08:59 05/07/17 07:55 4 MLS/MIN Rosuvastatin Calcium (Crestor Tab) 40 mg HS PO 05/04/17 21:00 06/03/17 20:59 05/06/17 20:39 40 MG Vancomycin HCl (Vancomycin Oral Soln) 125 mg DAILY PO 05/06/17 09:00 05/20/17 08:59 05/07/17 07:56 125 MG Raspberry (Raspberry Syrup 5ml Cup) 5 ml QAM PO 05/06/17 09:00 05/20/17 08:59 05/07/17 07:56 5 ML Potassium Chloride (Klor-Con M10) 20 meq [id number] PO 05/06/17 14:00 06/04/17 13:59 05/07/17 07:54 20 MEQ Impression (1) Chronic kidney disease, stage IV (severe) (2) Acute kidney injury (3) Atrial fibrillation (4) PVD (peripheral vascular disease) (5) Chronic diastolic (congestive) heart failure (6) HTN (hypertension) 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 Medical history also notable for CAD, PAD and atrial fibrillation. He was admitted with hypervolemia and evidence of progressive worsening renal function. Patient has refused dialysis. Mr. Mcmahan has atrial fibrillation managed w/ metoprolol and diltiazem. Blood pressure is slightly low but acceptable. UA is bland with acellular microscopy. Recommendations -- Continue Furosemide 80 mg IV BID. Patient is diuresing well. Will change to po Bumex prior to discharge (improved oral bioavailability) -- KCl 20 mEq BID -- Document I/O's -- Monitor metabolic profile daily -- Repeat potassium ordered for this afternoon -- Avoid JOE/ARB at this time -- Feet elevated -- Sodium restricted diet -- Patient would benefit from lymphedema therapy at discharge -- Discussed indications/benefits/risks and alternatives to [employer] w/ patient and his today. Mr. Mcmahan voiced understanding but indicates that he does not wish to burden his family with the responsibility of caring for him while on HD. He has a living will and indicates that he wishes to pursue medical therapy only. If his kidneys fail he will then pursue hospice care.
[2017-05-07] MEDS: WARFARIN SOD 2 MG TAB PO SCH (15:38)
--- NOTE | 2017-05-07 18:29 | Progress Note ---
Internal Med Progress Note Date of Service: May 07, 2017. Provider Documentation: SUBJECTIVE: sitting on the chair comfortably couldn't sleep well last night slept all day today requesting to increase trazodone bay to 100mg says sob much improved no chest pain or abdominal pain no nausea eating fine OBJECTIVE: Vital Signs-as noted below Exam: General-alert and oriented. Not in distress ENT-Normal hearing Neck-no neck masses Lungs-cta b/l no wheezing mild bibasilar crackles Heart-S1 and S2 heard regular rate and rhythm no murmurs Abdomen-Soft bowel sounds present non tender no distension Extremities-lower extremity edema present no erythema Neuro-alert and awake moves extremities Lab data as noted below. ASSESSMENT & PLAN: ACUTE KIDNEY INJURY / CKD IV CKD 4 with serum creatinine of 2.75 on 02/22/17 and estimated GFR of 25. presented with cr 4.79.cardio renal? on iv lasix cr 4.3 today Consulted Nephrology-appreciate inputs patient says he does not want dialysis if needed. to continue iv diuretics for now continue to monitor ACUTE ON CHRONIC LEFT VENTRICULAR DIASTOLIC CONGESTIVE HEART FAILURE Chronic left ventricular diastolic CHF. mostlikely secondary to MANUEL and volume retention Improving on IV furosemide. cardiology on board and appreciate inputs lost about 9kgs To continue same for now CORONARY ARTERY DISEASE stable on metoprolol and diltiazem. ATRIAL FIBRILLATION On metoprolol and diltiazem for rate control. On warfarin.INR 2.1 today HYPERTENSION On metoprolol and diltiazem Will monitor. Insomnia on trazodone VTE PROPHYLAXIS on warfarin. DISPOSITION to be determined pt/ot Vital Signs: Date Time Temp Pulse Resp B/P (MAP) Pulse Ox O2 Delivery O2 Flow Rate FiO2 05/07/17 16:00 Room Air 05/07/17 14:59 36.8 84 18 125/57 (79) 91 Room Air 05/07/17 12:00 Room Air 05/07/17 11:35 36.5 92 18 96/59 (71) 96 05/07/17 08:00 36.5 101 18 99/56 (70) 92 Room Air 05/07/17 08:00 Room Air 05/07/17 07:03 36.8 106 16 113/64 (80) 91 Room Air 05/07/17 04:00 Room Air 05/07/17 03:45 36.8 105 18 107/61 (76) 93 Room Air 05/07/17 00:00 Room Air 05/06/17 23:10 36.9 97 17 125/77 (93) 92 Room Air 05/06/17 20:00 36.7 101 18 119/69 (86) 97 Room Air 05/06/17 20:00 95 Room Air Lab Results: Results Past 24 Hours Test 05/07/17 05:57 Range/Units Prothrombin Time 22.1 9.0-12.0 SECONDS Prothromb Time International Ratio 2.1 0.9-1.1 Sodium Level 141 136-145 mmol/L Potassium Level 3.3 3.5-5.1 mmol/L Chloride Level 100 98-107 mmol/L Carbon Dioxide Level 34 21-32 mmol/L Anion Gap 8.0 3-11 mmol/L Blood Urea Nitrogen 55 7-18 mg/dl Creatinine 4.36 0.60-1.40 mg/dl Est Creatinine Clear Calc Drug Dose 18.3 ml/min Estimated GFR () 14.2 Estimated GFR (Non- 12.3 BUN/Creatinine Ratio 12.6 10-20 Random Glucose 97 70-99 mg/dl Calcium Level 8.0 8.5-10.1 mg/dl Phosphorus Level 3.3 2.5-4.9 mg/dl Albumin 2.9 3.4-5.0 gm/dl
[2017-05-07] MEDS: TRAZODONE HCL 50 MG TAB PO SCH (20:55)
[2017-05-07] MEDS: ROSUVASTATIN CALCIUM 20 MG TAB PO SCH (20:56)
[2017-05-08 03:17] VITALS: BP 121/60; PULSE 106; TEMP 37; O2SAT 92
[2017-05-08 06:00] LABS: HEMATOCRIT 33.5 % (42-52); HEMOGLOBIN 10.5 g/dL (14.0-18.0); MEAN CELL VOLUME 85.5 fL (80-100); MEAN CORPUSCULAR HEMOGLOBIN 26.8 pg (25-34); MEAN CORPUSCULAR HGB CONC 31.3 g/dl (32-36); MEAN PLATELET VOLUME 9.1 fL (7.4-10.4); PLATELET COUNT 180 K/uL (130-400); RED CELL DISTRIBUTION WIDTH CV 16.9 % (11.5-14.5); RED CELL DISTRIBUTION WIDTH SD 52.7 fL (36.4-46.3); WHITE BLOOD COUNT 9.53 K/uL (4.8-10.8)
[2017-05-08 06:14] LABS: CREATININE 4.21 mg/dl (0.60-1.40)
[2017-05-08 08:12] VITALS: BP 95/62; PULSE 96; TEMP 36.8; O2SAT 95
[2017-05-08] MEDS: LACTOBACILLUS ACIDOPHILUS (FLORANEX) TAB PO SCH ×3 (08:21→15:29)
[2017-05-08] MEDS: POTASSIUM CHLORIDE 10 MEQ TABCR PO SCH ×2 (08:21→15:27)
[2017-05-08] MEDS: FUROSEMIDE INJ 80 MG in SYRINGE 0 ML IV SCH (08:23)
[2017-05-08] MEDS: ALBUTEROL HFA 8 GM INHALER INH SCH ×4 (08:23→20:37)
[2017-05-08] MEDS: METOPROLOL TARTRATE 25 MG TAB PO SCH ×2 (08:23→20:36)
[2017-05-08] MEDS: RASPBERRY SYRUP 5 ML UDP PO SCH (08:24)
[2017-05-08] MEDS: VANCOMYCIN HCL 125 MG/2.5ML SOLN PO SCH (08:24)
[2017-05-08] MEDS: MULTIVITAMIN TAB PO SCH (08:24)
[2017-05-08] MEDS: PANTOprazole SOD 40 MG TAB PO SCH (08:24)
[2017-05-08] MEDS: CLOPIDOGREL BISULFATE 75 MG TAB PO SCH (08:25)
[2017-05-08] MEDS ORDERED: POTASSIUM CHLORIDE 10 MEQ TABCR PO STA (08:55)
--- NOTE | 2017-05-08 10:45 | Nephrology Progress Note ---
Nephrology Progress Note Date of Service May 08, 2017. Chief Complaint Acute on chronic kidney injury Subjective Mr. Mcmahan reports brisk UO overnight. He notes that his leg edema is improved. He would like to begin physical therapy Review of Systems Constitutional: No fever Cardiovascular: No chest pain Respiratory: No dyspnea at rest Abdomen: No pain, No nausea, No vomiting Extremities: + leg edema A complete review of systems was performed. Pertinent positives are noted above. All other systems are negative. Vital Signs Last 8 Hrs Date Time Temp Pulse Resp B/P (MAP) Pulse Ox O2 Delivery O2 Flow Rate FiO2 05/08/17 08:12 36.8 96 16 95/62 (73) 95 05/08/17 08:00 Room Air 05/08/17 04:00 Room Air 05/08/17 03:17 37.0 106 18 121/60 (80) 92 Room Air Last Recorded Weight Weight (Kilograms): 105.500 Physical Exam General Appearance: no apparent distress Head: normocephalic, atraumatic Eyes: PERRL Neck: no adenopathy Respiratory/Chest: lungs clear Cardiovascular: regular rate, rhythm Abdomen/GI: normal bowel sounds, non tender, soft Extremities/Musculoskelatal: + swelling (2+ pretibial pitting edema) Neurologic/Psych: alert, oriented x 3 Family History Abdominal aortic aneurysm FATHER BROTHER Leukemia FATHER Social History Smoking Status: Current every day smoker Alcohol Use: 2 bourbon + crenshaw a day Drug Use: none Marital Status: Housing Status: lives with significant other Occupation: retired Lives in [place] with his . Laboratory Results Past 24 Hours 05/08/17 05:15 05/08/17 05:15 Test 05/08/17 05:15 Red Blood Count 3.92 M/uL (4.7-6.1) Mean Corpuscular Volume 85.5 fL (80-100) Mean Corpuscular Hemoglobin 26.8 pg (25-34) Mean Corpuscular Hemoglobin Concent 31.3 g/dl (32-36) RDW Standard Deviation 52.7 fL (36.4-46.3) RDW Coefficient of Variation 16.9 % (11.5-14.5) Mean Platelet Volume 9.1 fL (7.4-10.4) Prothrombin Time 20.7 SECONDS (9.0-12.0) Prothromb Time International Ratio 2.0 (0.9-1.1) Anion Gap 6.0 mmol/L (3-11) Est Creatinine Clear Calc Drug Dose 18.7 ml/min Estimated GFR () 14.8 Estimated GFR (Non- 12.8 BUN/Creatinine Ratio 12.8 (10-20) Calcium Level 8.0 mg/dl (8.5-10.1) Allergies Coded Allergies: No Known Allergies (Verified , 05/03/17) Medications Current Inpatient Medications Medications (Trade) Dose Ordered Sig/Maria Guadalupe Route Start Time Stop Time Status Last Admin Dose Admin Albuterol (Ventolin Hfa Inhaler) 2 puffs QID INH 05/04/17 09:00 06/03/17 08:59 05/08/17 08:23 2 PUFFS Benzonatate (Tessalon Perles Cap) 100 mg TID PRN PO 05/03/17 21:30 06/02/17 21:29 Clopidogrel Bisulfate (plAVix TAB) 75 mg QAM PO 05/04/17 09:00 06/03/17 08:59 05/08/17 08:25 75 MG Lactobacillus Acidophilus (Floranex Tab) 1 tab TIDM PO 05/04/17 08:00 06/03/17 07:59 05/08/17 08:21 1 TAB Metoprolol Tartrate (Lopressor Tab) 25 mg BID PO 05/04/17 09:00 06/03/17 08:59 05/08/17 08:23 25 MG Multivitamins (Multivitamin Tab) 1 tab QAM PO 05/04/17 09:00 06/03/17 08:59 05/08/17 08:24 1 TAB Warfarin Sodium (Coumadin Tab) 2 mg SuTuWeThFrSa@1600 PO 05/04/17 16:00 06/03/17 15:59 05/07/17 15:38 2 MG Warfarin Sodium (Coumadin Tab) 4 mg Mo@1600 PO 05/09/17 16:00 06/08/17 15:59 Pantoprazole Sodium (Protonix Tab) 40 mg QAM PO 05/04/17 09:00 06/03/17 08:59 05/08/17 08:24 40 MG Rosuvastatin Calcium (Crestor Tab) 40 mg HS PO 05/04/17 21:00 06/03/17 20:59 05/07/17 20:56 40 MG Vancomycin HCl (Vancomycin Oral Soln) 125 mg DAILY PO 05/06/17 09:00 05/20/17 08:59 05/08/17 08:24 125 MG Raspberry (Raspberry Syrup 5ml Cup) 5 ml QAM PO 05/06/17 09:00 05/20/17 08:59 05/08/17 08:24 5 ML Potassium Chloride (Klor-Con M10) 20 meq [id number] PO 05/06/17 14:00 06/04/17 13:59 05/08/17 08:21 20 MEQ Trazodone HCl (Desyrel Tab) 100 mg HS PO 05/07/17 21:00 06/03/17 20:59 05/07/17 20:55 100 MG Furosemide 80 mg/ Syringe 8 ml @ 4 mls/min QAM IV 05/09/17 09:00 06/03/17 08:59 Impression (1) Chronic kidney disease, stage IV (severe) (2) Acute kidney injury (3) Atrial fibrillation (4) PVD (peripheral vascular disease) (5) Chronic diastolic (congestive) heart failure (6) HTN (hypertension) 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 Medical history also notable for CAD, PAD and atrial fibrillation. He was admitted with hypervolemia and evidence of progressive worsening renal function. Patient has refused dialysis. Mr. Mcmahan has atrial fibrillation managed w/ metoprolol and diltiazem. Blood pressure is slightly low but acceptable. UA is bland with acellular microscopy. Recommendations -- Continue Furosemide 80 mg IV BID until edema resolves or kidney function worsens. Will change to po Bumex prior to discharge (improved oral bioavailability) -- Continue KCl 20 mEq BID and provide additional supplementation this am. -- Document I/O's, daily wt -- Monitor metabolic profile daily -- Avoid JOE/ARB at this time -- Sodium restricted diet -- Consider transfer to medical floor to begin ambulation and physical therapy
[2017-05-08 12:00] VITALS: BP 94/61; PULSE 81; TEMP 37.1; O2SAT 92
--- NOTE | 2017-05-08 12:46 | Cardiology Follow-Up ---
Subjective General Date of Service: May 08, 2017. Chief Complaint: CHF/ARF Pt evaluation today including: conversation w/ patient, physical exam, chart review, lab review, review of studies, review of inpatient medication list History of Present Illness The patient is a 76 year old male seen in follow-up. Diuresed approximately 3 L overnight. Creatinine continues to trend downward. Denies chest pain or shortness of breath. Offers no complaints at this time Allergies Coded Allergies: No Known Allergies (Verified , 05/03/17) Social History Smoking Status: Never Smoker Hx Tobacco Use In Past Year?: No Hx Alcohol Use - Type And Amou: Yes (1 glass bourbon daily) Hx Substance Use - Type And Am: No Problem List Medical Problems: (1) ARF (acute renal failure) Status: Acute (2) CHF (congestive heart failure) Status: Acute (3) CVA (cerebral vascular accident) Status: Acute (4) Elevated troponin Status: Acute Review of Systems Respiratory: No cough, No sputum, No wheezing, No shortness of breath, No dyspnea on exertion, No dyspnea at rest, No hemoptysis Cardiac: + edema, No chest pain, No orthopnea, No PND, No claudication, No palpitations Physical Exam Vital Signs Last Vital Signs Documentation Date Time Temp Pulse Resp B/P (MAP) Pulse Ox O2 Delivery O2 Flow Rate FiO2 05/08/17 12:00 37.1 81 18 94/61 (72) 92 Room Air 05/05/17 16:00 2.0 Physical Exam Constitutional: General Apperance: overweight Level of Distress: NAD, acutely ill, chronically ill Psychiatric: Mental Status: active & alert Orientation: to time, to place, to person Head: normocephalic Eyes: Pupils: PERRLA Neck: supple Lungs: Auscultation: deminished air movement, wet rales/crackles Cardiovascular: Heart Auscultation: II/ TARA, irregular rate rhythm Abdomen: Inspection & Palpation: soft, distended (mildly) Extremities: no cyanosis, no ulcers, edema (2+ to knees) Neurologic: Gait & Station: pertinent finding (No focal motor deficit) Cranial Nerves: grossly intact Assessment and Plan Assessment and Plan IMPRESSION: 1. Acute on chronic diastolic HF 2. Acute on chronic kidney disease with worsening creatinine noted on admission -Creatinine trending downward -Diuresing adequately with current diuretic therapy (-3 L over the past 24 hour) 3. Chronic rate controlled atrial fibrillation with therapeutic INR 4. CAD s/p CABG in 2003. No ischemic EKG changes. Negative cardiac enzymes. Preserved LV Function 5. Hypertension - controlled, borderline hypotension PLAN: Continue IV furosemide 80 mg twice daily. Monitor fluid balance, weight, GFR, electrolytes daily. Supplement potassium as needed (as per nephrology recommendations) Continue metoprolol 25 mg twice daily and Coumadin for goal INR of 2.0-3.0. Recommend low-sodium diet. Patient refusing dialysis currently. Appreciate nephrology input. Continue other cardiac medications as previously ordered. Laboratory Results Last 24 Hours Test 05/08/17 05:15 White Blood Count 9.53 K/uL Red Blood Count 3.92 M/uL Hemoglobin 10.5 g/dL Hematocrit 33.5 % Mean Corpuscular Volume 85.5 fL Mean Corpuscular Hemoglobin 26.8 pg Mean Corpuscular Hemoglobin Concent 31.3 g/dl RDW Standard Deviation 52.7 fL RDW Coefficient of Variation 16.9 % Platelet Count 180 K/uL Mean Platelet Volume 9.1 fL Prothrombin Time 20.7 SECONDS Prothromb Time International Ratio 2.0 Sodium Level 140 mmol/L Potassium Level 3.0 mmol/L Chloride Level 98 mmol/L Carbon Dioxide Level 36 mmol/L Anion Gap 6.0 mmol/L Blood Urea Nitrogen 54 mg/dl Creatinine 4.21 mg/dl Est Creatinine Clear Calc Drug Dose 18.7 ml/min Estimated GFR () 14.8 Estimated GFR (Non- 12.8 BUN/Creatinine Ratio 12.8 Random Glucose 118 mg/dl Calcium Level 8.0 mg/dl
[2017-05-08 15:16] VITALS: BP 103/51; PULSE 84; TEMP 36.8; O2SAT 96
[2017-05-08] MEDS: WARFARIN SOD 2 MG TAB PO SCH (15:28)
--- NOTE | 2017-05-08 18:17 | Progress Note ---
Internal Med Progress Note Date of Service: May 08, 2017. Provider Documentation: SUBJECTIVE: sitting on the chair comfortably couldn't sleep well last night too slept in the morning afebrile feeling fine no sob no pain OBJECTIVE: Vital Signs-as noted below Exam: General-alert and oriented. Not in distress ENT-Normal hearing Neck-no neck masses Lungs-cta b/l no wheezing mild bibasilar crackles Heart-S1 and S2 heard regular rate and rhythm no murmurs Abdomen-Soft bowel sounds present non tender no distension Extremities-lower extremity edema present no erythema Neuro-alert and awake moves extremities Lab data as noted below. ASSESSMENT & PLAN: ACUTE KIDNEY INJURY / CKD IV CKD 4 with serum creatinine of 2.75 on 02/22/17 and estimated GFR of 25. presented with cr 4.79.cardio renal? on iv lasix cr 4.2 today Consulted Nephrology-appreciate inputs patient says he does not want dialysis if needed. to continue iv diuretics fas per nephro continue to monitor ACUTE ON CHRONIC LEFT VENTRICULAR DIASTOLIC CONGESTIVE HEART FAILURE Chronic left ventricular diastolic CHF. mostlikely secondary to MANUEL and volume retention Improving on IV furosemide. cardiology on board and appreciate inputs lost about 12 kgs To continue same for now Hypokalemia will replace will stop renal diet CORONARY ARTERY DISEASE stable on metoprolol and diltiazem. ATRIAL FIBRILLATION On metoprolol and diltiazem for rate control. On warfarin.INR 2.0 today HYPERTENSION On metoprolol and diltiazem Will monitor. Insomnia on trazodone VTE PROPHYLAXIS on warfarin. DISPOSITION to be determined pt/ot Vital Signs: Date Time Temp Pulse Resp B/P (MAP) Pulse Ox O2 Delivery O2 Flow Rate FiO2 05/08/17 16:00 Room Air 05/08/17 15:16 36.8 84 18 103/51 (68) 96 Room Air 05/08/17 12:00 37.1 81 18 94/61 (72) 92 Room Air 05/08/17 12:00 Room Air 05/08/17 08:12 36.8 96 16 95/62 (73) 95 05/08/17 08:00 Room Air 05/08/17 04:00 Room Air 05/08/17 03:17 37.0 106 18 121/60 (80) 92 Room Air 05/08/17 00:00 Room Air 05/07/17 23:22 37.1 91 18 115/68 (84) 95 Room Air 05/07/17 20:00 Room Air 05/07/17 19:24 36.8 104 18 129/78 (95) 92 Room Air Lab Results: Results Past 24 Hours Test 05/08/17 05:15 Range/Units White Blood Count 9.53 4.8-10.8 K/uL Red Blood Count 3.92 4.7-6.1 M/uL Hemoglobin 10.5 14.0-18.0 g/dL Hematocrit 33.5 42-52 % Mean Corpuscular Volume 85.5 80-100 fL Mean Corpuscular Hemoglobin 26.8 25-34 pg Mean Corpuscular Hemoglobin Concent 31.3 32-36 g/dl RDW Standard Deviation 52.7 36.4-46.3 fL RDW Coefficient of Variation 16.9 11.5-14.5 % Platelet Count 180 130-400 K/uL Mean Platelet Volume 9.1 7.4-10.4 fL Prothrombin Time 20.7 9.0-12.0 SECONDS Prothromb Time International Ratio 2.0 0.9-1.1 Sodium Level 140 136-145 mmol/L Potassium Level 3.0 3.5-5.1 mmol/L Chloride Level 98 98-107 mmol/L Carbon Dioxide Level 36 21-32 mmol/L Anion Gap 6.0 3-11 mmol/L Blood Urea Nitrogen 54 7-18 mg/dl Creatinine 4.21 0.60-1.40 mg/dl Est Creatinine Clear Calc Drug Dose 18.7 ml/min Estimated GFR () 14.8 Estimated GFR (Non- 12.8 BUN/Creatinine Ratio 12.8 10-20 Random Glucose 118 70-99 mg/dl Calcium Level 8.0 8.5-10.1 mg/dl
[2017-05-08 19:04] VITALS: BP 130/63; PULSE 93; TEMP 36.4; O2SAT 94
[2017-05-08] MEDS: TRAZODONE HCL 50 MG TAB PO SCH (20:36)
[2017-05-08] MEDS: ROSUVASTATIN CALCIUM 20 MG TAB PO SCH (20:37)
[2017-05-08 23:18] VITALS: BP 108/68; PULSE 91; TEMP 36.8; O2SAT 92
[2017-05-09 03:03] VITALS: BP 117/67; PULSE 97; TEMP 36.9; O2SAT 93
[2017-05-09 06:40] LABS: HEMATOCRIT 33.9 % (42-52); HEMOGLOBIN 10.8 g/dL (14.0-18.0); MEAN CELL VOLUME 85.2 fL (80-100); MEAN CORPUSCULAR HEMOGLOBIN 27.1 pg (25-34); MEAN CORPUSCULAR HGB CONC 31.9 g/dl (32-36); MEAN PLATELET VOLUME 8.9 fL (7.4-10.4); PLATELET COUNT 168 K/uL (130-400); RED CELL DISTRIBUTION WIDTH CV 16.8 % (11.5-14.5); RED CELL DISTRIBUTION WIDTH SD 52.7 fL (36.4-46.3); WHITE BLOOD COUNT 7.62 K/uL (4.8-10.8)
[2017-05-09 07:00] LABS: INR 1.9 (0.9-1.1)
[2017-05-09 07:03] LABS: CALCIUM 8.4 mg/dl (8.5-10.1); CREATININE 3.65 mg/dl (0.60-1.40); POTASSIUM 3.4 mmol/L (3.5-5.1)
[2017-05-09] MEDS: MULTIVITAMIN TAB PO SCH (07:56)
[2017-05-09] MEDS: LACTOBACILLUS ACIDOPHILUS (FLORANEX) TAB PO SCH ×3 (07:56→16:27)
[2017-05-09] MEDS: METOPROLOL TARTRATE 25 MG TAB PO SCH (07:57)
[2017-05-09] MEDS: CLOPIDOGREL BISULFATE 75 MG TAB PO SCH (07:57)
[2017-05-09] MEDS: PANTOprazole SOD 40 MG TAB PO SCH (07:57)
[2017-05-09] MEDS: POTASSIUM CHLORIDE 10 MEQ TABCR PO SCH ×2 (07:57→14:39)
[2017-05-09] MEDS: RASPBERRY SYRUP 5 ML UDP PO SCH (07:58)
[2017-05-09] MEDS: ALBUTEROL HFA 8 GM INHALER INH SCH ×4 (07:58→21:02)
[2017-05-09] MEDS: VANCOMYCIN HCL 125 MG/2.5ML SOLN PO SCH (08:02)
[2017-05-09 08:12] VITALS: BP 110/83; PULSE 107; TEMP 37; O2SAT 90
[2017-05-09] MEDS ORDERED: FUROSEMIDE INJ 80 MG in SYRINGE 0 ML IV SCH (09:00)
--- NOTE | 2017-05-09 11:03 | CARDIOLOGY PROGRESS NOTE ---
DATE: 05/09/2017 The patient was seen and examined. Chart, medication, and telemetry were reviewed. SUBJECTIVE: The patient feels improved again this morning and has continued to manifest good diuresis. Weight is down 18 kilograms since admission. He has noted substantial improvement of abdominal bloating and lower extremity edema. Renal function continues to improve despite diuresis. Notes no chest pain, tachypalpitations, or dizziness. Remains in atrial fibrillation with intermittently elevated ventricular response rate. OBJECTIVE: VITAL SIGNS: Heart rate 80-100 and blood pressure is 110/83. HEENT: Normocephalic and atraumatic. NECK: Thick. There is no distinct jugular venous distention. LUNGS: Reveal fine crackles, basilar. CARDIOVASCULAR: Irregularly irregular. ABDOMEN: Soft. EXTREMITIES: 2-3+ lower extremity edema, persistent, left greater than right. IMPRESSION: 1. A 76-year-old male with complex history presents with acute on chronic diastolic heart failure. 2. Acute worsening chronic renal insufficiency. 3. Chronic atrial fibrillation with elevated ventricular response rate. 4. History of atherosclerotic coronary disease status post coronary artery bypass grafting. RECOMMENDATIONS: Diuresis as ongoing per Dr. Rodrigues, nephrology with excellent clinical response. We will change metoprolol to metoprolol extended released 37.5 mg twice per day for heart rate and blood pressure control. Plan on discontinuing diltiazem at present on admission. Continue INR/Coumadin as ordered.
[2017-05-09 11:56] VITALS: BP 107/51; PULSE 84; TEMP 36.9; O2SAT 95
--- NOTE | 2017-05-09 14:10 | Nephrology Progress Note ---
Nephrology Progress Note Date of Service May 09, 2017. Chief Complaint Acute on chronic kidney injury Subjective Mr. Mcmahan was seen & examined in the PCU this morning. He reports brisk diuresis in response to IV Furosemide therapy. His LE edema is mildly improved. He is anxious to begin physical therapy. Review of Systems Constitutional: No fever Cardiovascular: No chest pain Respiratory: No dyspnea at rest Abdomen: No pain, No nausea, No vomiting Extremities: + leg edema A complete review of systems was performed. Pertinent positives are noted above. All other systems are negative. Vital Signs Last 8 Hrs Date Time Temp Pulse Resp B/P (MAP) Pulse Ox O2 Delivery O2 Flow Rate FiO2 05/09/17 12:00 Room Air 05/09/17 11:56 36.9 84 19 107/51 (69) 95 Room Air 05/09/17 08:12 37.0 107 19 110/83 (92) 90 Room Air 05/09/17 08:00 Room Air Last Recorded Weight Weight (Kilograms): 103.300 Physical Exam General Appearance: no apparent distress Head: normocephalic, atraumatic Eyes: PERRL, EOMI Neck: no adenopathy Respiratory/Chest: lungs clear, no respiratory distress Cardiovascular: regular rate, rhythm Abdomen/GI: normal bowel sounds, non tender, soft Extremities/Musculoskelatal: + swelling (2+ pretibial pitting edema) Neurologic/Psych: alert, oriented x 3 Family History Abdominal aortic aneurysm FATHER BROTHER Leukemia FATHER Social History Smoking Status: Current every day smoker Alcohol Use: 2 bourbon + crenshaw a day Drug Use: none Marital Status: Housing Status: lives with significant other Occupation: retired Lives in [place] with his . Laboratory Results Past 24 Hours 05/09/17 06:23 05/09/17 06:23 Test 05/09/17 06:23 Red Blood Count 3.98 M/uL (4.7-6.1) Mean Corpuscular Volume 85.2 fL (80-100) Mean Corpuscular Hemoglobin 27.1 pg (25-34) Mean Corpuscular Hemoglobin Concent 31.9 g/dl (32-36) RDW Standard Deviation 52.7 fL (36.4-46.3) RDW Coefficient of Variation 16.8 % (11.5-14.5) Mean Platelet Volume 8.9 fL (7.4-10.4) Prothrombin Time 20.1 SECONDS (9.0-12.0) Prothromb Time International Ratio 1.9 (0.9-1.1) Anion Gap 7.0 mmol/L (3-11) Est Creatinine Clear Calc Drug Dose 21.4 ml/min Estimated GFR () 17.6 Estimated GFR (Non- 15.2 BUN/Creatinine Ratio 14.4 (10-20) Calcium Level 8.4 mg/dl (8.5-10.1) Magnesium Level 2.0 mg/dl (1.8-2.4) Allergies Coded Allergies: No Known Allergies (Verified , 05/03/17) Medications Current Inpatient Medications Medications (Trade) Dose Ordered Sig/Maria Guadalupe Route Start Time Stop Time Status Last Admin Dose Admin Albuterol (Ventolin Hfa Inhaler) 2 puffs QID INH 05/04/17 09:00 06/03/17 08:59 05/09/17 11:54 2 PUFFS Benzonatate (Tessalon Perles Cap) 100 mg TID PRN PO 05/03/17 21:30 06/02/17 21:29 Clopidogrel Bisulfate (plAVix TAB) 75 mg QAM PO 05/04/17 09:00 06/03/17 08:59 05/09/17 07:57 75 MG Lactobacillus Acidophilus (Floranex Tab) 1 tab TIDM PO 05/04/17 08:00 06/03/17 07:59 05/09/17 11:54 1 TAB Multivitamins (Multivitamin Tab) 1 tab QAM PO 05/04/17 09:00 06/03/17 08:59 05/09/17 07:56 1 TAB Warfarin Sodium (Coumadin Tab) 2 mg SuTuWeThFrSa@1600 PO 05/04/17 16:00 06/03/17 15:59 05/08/17 15:28 2 MG Warfarin Sodium (Coumadin Tab) 4 mg Mo@1600 PO 05/09/17 16:00 06/08/17 15:59 Pantoprazole Sodium (Protonix Tab) 40 mg QAM PO 05/04/17 09:00 06/03/17 08:59 05/09/17 07:57 40 MG Rosuvastatin Calcium (Crestor Tab) 40 mg HS PO 05/04/17 21:00 06/03/17 20:59 05/08/17 20:37 40 MG Vancomycin HCl (Vancomycin Oral Soln) 125 mg DAILY PO 05/06/17 09:00 05/20/17 08:59 05/09/17 08:02 125 MG Raspberry (Raspberry Syrup 5ml Cup) 5 ml QAM PO 05/06/17 09:00 05/20/17 08:59 05/09/17 07:58 5 ML Potassium Chloride (Klor-Con M10) 20 meq [id number] PO 05/06/17 14:00 06/04/17 13:59 05/09/17 07:57 20 MEQ Trazodone HCl (Desyrel Tab) 100 mg HS PO 05/07/17 21:00 06/03/17 20:59 05/08/17 20:36 100 MG Furosemide 80 mg/ Syringe 8 ml @ 4 mls/min QAM IV 05/09/17 09:00 06/03/17 08:59 05/09/17 07:58 4 MLS/MIN Metoprolol Succinate (Toprol Xl Tab) 37.5 mg BID PO 05/09/17 21:00 06/08/17 20:59 Impression (1) Chronic kidney disease, stage IV (severe) (2) Acute kidney injury (3) Atrial fibrillation (4) PVD (peripheral vascular disease) (5) Chronic diastolic (congestive) heart failure (6) HTN (hypertension) 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 Medical history also notable for CAD, PAD and atrial fibrillation. He was admitted with hypervolemia and evidence of progressive worsening renal function. Patient has refused dialysis. Mr. Mcmahan has atrial fibrillation managed w/ metoprolol and diltiazem. Blood pressure is slightly low but acceptable. UA is bland with acellular microscopy. Recommendations -- Continue Furosemide 80 mg IV BID until edema resolves or kidney function worsens. Will change to po Bumex prior to discharge (improved oral bioavailability) -- Continue KCl 20 mEq BID -- Document I/O's, daily wt -- Monitor metabolic profile daily -- Avoid JOE/ARB at this time -- Sodium restricted diet -- Consider transfer to medical floor to begin ambulation and physical therapy
[2017-05-09 15:01] VITALS: BP 127/66; PULSE 86; TEMP 36.5; O2SAT 97
[2017-05-09] MEDS ORDERED: WARFARIN SOD 4 MG TAB PO SCH (16:00)
--- NOTE | 2017-05-09 18:54 | Progress Note ---
Internal Med Progress Note Date of Service: May 09, 2017. Provider Documentation: SUBJECTIVE: sitting comfortably says sleeping in night better denies any sob ambulated in hallway fine no sob or chest pain while ambulating moved bowels no nausea eating fine OBJECTIVE: Vital Signs-as noted below Exam: General-alert and oriented. Not in distress ENT-Normal hearing Neck-no neck masses Lungs-cta b/l no wheezing mild bibasilar crackles Heart-S1 and S2 heard regular rate and rhythm no murmurs Abdomen-Soft bowel sounds present non tender no distension Extremities-lower extremity edema present no erythema Neuro-alert and awake moves extremities Lab data as noted below. ASSESSMENT & PLAN: 76M was admitted for acute Diastolic CHF and MANUEL on CKD stage 4. Started on iv Lasix 80mg bid and had good response. To continue current diuretics as long as kidny function improving as per nephrology. ACUTE KIDNEY INJURY / CKD IV CKD 4 with serum creatinine of 2.75 on 02/22/17 and estimated GFR of 25. presented with cr 4.79.cardio renal? on iv lasix cr 3.6today Consulted Nephrology-appreciate inputs patient says he does not want dialysis if needed. to continue iv diuretics fas per nephro as long renal function improving continue to monitor ACUTE ON CHRONIC LEFT VENTRICULAR DIASTOLIC CONGESTIVE HEART FAILURE Chronic left ventricular diastolic CHF. mostlikely secondary to MANUEL and volume retention Improving on IV furosemide. cardiology on board and appreciate inputs lost about 14 kgs To continue same for now Hypokalemia will replace will stop renal diet CORONARY ARTERY DISEASE stable on metoprolol and plavix ATRIAL FIBRILLATION On Toprol xl and diltiazem for rate control. diltiazem stopped and Toprol xl dose increased to 37.5mg bid On warfarin.INR 1.9 today HYPERTENSION On metoprolol Will monitor. 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 DISPOSITION to be determined pt/ot Vital Signs: Date Time Temp Pulse Resp B/P (MAP) Pulse Ox O2 Delivery O2 Flow Rate FiO2 05/09/17 16:00 Room Air 05/09/17 15:01 36.5 86 18 127/66 (86) 97 Room Air 05/09/17 12:00 Room Air 05/09/17 11:56 36.9 84 19 107/51 (69) 95 Room Air 3/19/18 08:12 37.0 107 19 110/83 (92) 90 Room Air 05/09/17 08:00 Room Air 05/09/17 04:00 Room Air 05/09/17 03:03 36.9 97 18 117/67 (84) 93 Room Air 05/09/17 00:00 Room Air 05/08/17 23:18 36.8 91 18 108/68 (81) 92 Room Air Lab Results: Results Past 24 Hours Test 05/09/17 06:23 Range/Units White Blood Count 7.62 4.8-10.8 K/uL Red Blood Count 3.98 4.7-6.1 M/uL Hemoglobin 10.8 14.0-18.0 g/dL Hematocrit 33.9 42-52 % Mean Corpuscular Volume 85.2 80-100 fL Mean Corpuscular Hemoglobin 27.1 25-34 pg Mean Corpuscular Hemoglobin Concent 31.9 32-36 g/dl RDW Standard Deviation 52.7 36.4-46.3 fL RDW Coefficient of Variation 16.8 11.5-14.5 % Platelet Count 168 130-400 K/uL Mean Platelet Volume 8.9 7.4-10.4 fL Prothrombin Time 20.1 9.0-12.0 SECONDS Prothromb Time International Ratio 1.9 0.9-1.1 Sodium Level 139 136-145 mmol/L Potassium Level 3.4 3.5-5.1 mmol/L Chloride Level 99 98-107 mmol/L Carbon Dioxide Level 33 21-32 mmol/L Anion Gap 7.0 3-11 mmol/L Blood Urea Nitrogen 53 7-18 mg/dl Creatinine 3.65 0.60-1.40 mg/dl Est Creatinine Clear Calc Drug Dose 21.4 ml/min Estimated GFR () 17.6 Estimated GFR (Non- 15.2 BUN/Creatinine Ratio 14.4 10-20 Random Glucose 89 70-99 mg/dl Calcium Level 8.4 8.5-10.1 mg/dl Magnesium Level 2.0 1.8-2.4 mg/dl
[2017-05-09 19:55] VITALS: BP 121/76; PULSE 81; TEMP 37.2; O2SAT 96
[2017-05-09] MEDS ORDERED: METOPROLOL SUCC 25MG EXT REL TAB PO SCH (21:00)
[2017-05-09] MEDS: ROSUVASTATIN CALCIUM 20 MG TAB PO SCH (21:02)
[2017-05-09] MEDS: TRAZODONE HCL 50 MG TAB PO SCH (21:03)
[2017-05-09] MEDS: METOPROLOL SUCC 25MG EXT REL TAB PO SCH (21:58)
[2017-05-09 23:28] VITALS: BP 97/70; PULSE 83; TEMP 36.8; O2SAT 93
[2017-05-10 04:33] VITALS: BP 131/79; PULSE 104; TEMP 37.1; O2SAT 91
[2017-05-10 06:49] LABS: HEMATOCRIT 36.1 % (42-52); HEMOGLOBIN 10.9 g/dL (14.0-18.0); MEAN CELL VOLUME 86.2 fL (80-100); MEAN CORPUSCULAR HGB CONC 30.2 g/dl (32-36); MEAN PLATELET VOLUME 9.3 fL (7.4-10.4); PLATELET COUNT 208 K/uL (130-400); RED CELL DISTRIBUTION WIDTH CV 16.8 % (11.5-14.5); RED CELL DISTRIBUTION WIDTH SD 53.2 fL (36.4-46.3)
[2017-05-10 07:25] LABS: CALCIUM 8.7 mg/dl (8.5-10.1); CREATININE 3.63 mg/dl (0.60-1.40); POTASSIUM 3.7 mmol/L (3.5-5.1)
[2017-05-10 08:00] VITALS: BP 126/72; PULSE 90; TEMP 36.6; O2SAT 93
[2017-05-10] MEDS: POTASSIUM CHLORIDE 10 MEQ TABCR PO SCH ×2 (09:23→15:35)
[2017-05-10] MEDS: CLOPIDOGREL BISULFATE 75 MG TAB PO SCH (09:23)
[2017-05-10] MEDS: METOPROLOL SUCC 25MG EXT REL TAB PO SCH ×2 (09:23→20:50)
[2017-05-10] MEDS: MULTIVITAMIN TAB PO SCH (09:24)
[2017-05-10] MEDS: PANTOprazole SOD 40 MG TAB PO SCH (09:24)
[2017-05-10] MEDS: ALBUTEROL HFA 8 GM INHALER INH SCH ×4 (09:24→20:47)
[2017-05-10] MEDS: LACTOBACILLUS ACIDOPHILUS (FLORANEX) TAB PO SCH ×4 (09:24→17:06)
[2017-05-10] MEDS: RASPBERRY SYRUP 5 ML UDP PO SCH (09:24)
[2017-05-10] MEDS ORDERED: BUMETANIDE 1 MG TAB PO ONE (09:30)
[2017-05-10] MEDS: VANCOMYCIN HCL 125 MG/2.5ML SOLN PO SCH (09:32)
--- NOTE | 2017-05-10 10:32 | Nephrology Progress Note ---
Nephrology Progress Note Date of Service May 10, 2017. Chief Complaint Acute on chronic kidney injury Subjective Mr. Mcmahan was seen & examined in the ICU this morning. He reports brisk urine output. LE edema is unchanged from yesterday. He has started physical therapy and is anxious to return home Review of Systems Constitutional: No fever Cardiovascular: No chest pain Respiratory: No dyspnea at rest Abdomen: No pain, No nausea, No vomiting Extremities: + leg edema A complete review of systems was performed. Pertinent positives are noted above. All other systems are negative. Vital Signs Last 8 Hrs Date Time Temp Pulse Resp B/P (MAP) Pulse Ox O2 Delivery O2 Flow Rate FiO2 05/10/17 08:00 36.6 90 18 126/72 (90) 93 Room Air 05/10/17 04:33 37.1 104 18 131/79 (96) 91 Room Air 05/10/17 04:00 Room Air Last Recorded Weight Weight (Kilograms): 105.700 Physical Exam General Appearance: no apparent distress Head: normocephalic, atraumatic Eyes: PERRL, EOMI Neck: no adenopathy Respiratory/Chest: lungs clear Cardiovascular: + irregularly irregular Abdomen/GI: normal bowel sounds, non tender, soft Extremities/Musculoskelatal: + swelling (2+ pretibial pitting edema) Family History Abdominal aortic aneurysm FATHER BROTHER Leukemia FATHER Social History Smoking Status: Current every day smoker Alcohol Use: 2 bourbon + crenshaw a day Drug Use: none Marital Status: Housing Status: lives with significant other Occupation: retired Lives in [place] with his . Laboratory Results Past 24 Hours 05/10/17 06:04 05/10/17 06:04 Test 05/10/17 06:04 Red Blood Count 4.19 M/uL (4.7-6.1) Mean Corpuscular Volume 86.2 fL (80-100) Mean Corpuscular Hemoglobin 26.0 pg (25-34) Mean Corpuscular Hemoglobin Concent 30.2 g/dl (32-36) RDW Standard Deviation 53.2 fL (36.4-46.3) RDW Coefficient of Variation 16.8 % (11.5-14.5) Mean Platelet Volume 9.3 fL (7.4-10.4) Prothrombin Time 20.5 SECONDS (9.0-12.0) Prothromb Time International Ratio 2.0 (0.9-1.1) Anion Gap 9.0 mmol/L (3-11) Est Creatinine Clear Calc Drug Dose 21.8 ml/min Estimated GFR () 17.8 Estimated GFR (Non- 15.3 BUN/Creatinine Ratio 15.8 (10-20) Calcium Level 8.7 mg/dl (8.5-10.1) Allergies Coded Allergies: No Known Allergies (Verified , 05/03/17) Medications Current Inpatient Medications Medications (Trade) Dose Ordered Sig/Maria Guadalupe Route Start Time Stop Time Status Last Admin Dose Admin Albuterol (Ventolin Hfa Inhaler) 2 puffs QID INH 05/04/17 09:00 06/03/17 08:59 05/10/17 09:24 2 PUFFS Benzonatate (Tessalon Perles Cap) 100 mg TID PRN PO 05/03/17 21:30 06/02/17 21:29 Clopidogrel Bisulfate (plAVix TAB) 75 mg QAM PO 05/04/17 09:00 06/03/17 08:59 05/10/17 09:23 75 MG Lactobacillus Acidophilus (Floranex Tab) 1 tab TIDM PO 05/04/17 08:00 06/03/17 07:59 05/10/17 09:24 1 TAB Multivitamins (Multivitamin Tab) 1 tab QAM PO 05/04/17 09:00 06/03/17 08:59 05/10/17 09:24 1 TAB Warfarin Sodium (Coumadin Tab) 2 mg SuTuWeThFrSa@1600 PO 05/04/17 16:00 06/03/17 15:59 05/08/17 15:28 2 MG Warfarin Sodium (Coumadin Tab) 4 mg Mo@1600 PO 05/09/17 16:00 06/08/17 15:59 05/09/17 16:27 4 MG Pantoprazole Sodium (Protonix Tab) 40 mg QAM PO 05/04/17 09:00 06/03/17 08:59 05/10/17 09:24 40 MG Rosuvastatin Calcium (Crestor Tab) 40 mg HS PO 05/04/17 21:00 06/03/17 20:59 05/09/17 21:02 40 MG Vancomycin HCl (Vancomycin Oral Soln) 125 mg DAILY PO 05/06/17 09:00 05/20/17 08:59 05/10/17 09:32 125 MG Raspberry (Raspberry Syrup 5ml Cup) 5 ml QAM PO 05/06/17 09:00 05/20/17 08:59 05/10/17 09:24 5 ML Potassium Chloride (Klor-Con M10) 20 meq [id number] PO 05/06/17 14:00 06/04/17 13:59 05/10/17 09:23 20 MEQ Trazodone HCl (Desyrel Tab) 100 mg HS PO 05/07/17 21:00 06/03/17 20:59 05/09/17 21:03 100 MG Metoprolol Succinate (Toprol Xl Tab) 37.5 mg BID PO 05/09/17 21:00 06/08/17 20:59 05/10/17 09:23 37.5 MG Impression (1) Chronic kidney disease, stage IV (severe) (2) Acute kidney injury (3) Atrial fibrillation (4) PVD (peripheral vascular disease) (5) Chronic diastolic (congestive) heart failure (6) HTN (hypertension) 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 Medical history also notable for CAD, PAD and atrial fibrillation. He was admitted with hypervolemia and evidence of progressive worsening renal function. Patient has refused dialysis. Mr. Mcmahan has atrial fibrillation managed w/ metoprolol and diltiazem. Blood pressure is slightly low but acceptable. UA is bland with acellular microscopy. Recommendations -- Change diuretic to Bumex 2 mg po BID -- Continue KCl 20 mEq BID -- Document I/O's, daily wt -- Monitor metabolic profile daily -- Avoid JOE/ARB at this time -- Sodium restricted diet -- Consider transfer to medical floor to allow ambulation with physical therapy
--- NOTE | 2017-05-10 11:00 | Progress Note ---
Medicine Progress Note Date & Time of Visit: May 10, 2017 at 10:50. Subjective 76M was admitted for acute Diastolic CHF and MANUEL on CKD stage 4. -pt is completely asymptomatic today -denies chest pain, SOB, cough -reports that he is tolerating PO and is ambulating at baseline -excited about the possibility of going home in am. - at bedside. Objective Last 8 Hrs Date Time Temp Pulse Resp B/P (MAP) Pulse Ox O2 Delivery O2 Flow Rate FiO2 05/10/17 08:00 36.6 90 18 126/72 (90) 93 Room Air 05/10/17 04:33 37.1 104 18 131/79 (96) 91 Room Air 05/10/17 04:00 Room Air Physical Exam: GEN: WNWD, in no acute distress, alert and appropriate HEENT: NC/AT, normal sclerae, MMM CARDIO: reg rate, S1/2 heard without m/g/r LUNGS: CTA bilaterally, no crackles, rales or wheezes, good diaphragmatic excursion ABD: soft, non-tender, non-distended EXTREMITY: RP and DP palpable 2+ bilat, 1+ edema in bilateral lower extremities , extremities are warm and well-perfused NEURO: CN 2-12 grossly intact, sensation intact throughout MUSC: able to sit up on his own, moves all extremities equally SKIN: warm and dry Laboratory Results: 05/10/17 06:04 05/10/17 06:04 Test 05/03/17 17:05 05/04/17 05:03 05/07/17 05:57 05/09/17 06:23 Immature Granulocyte % (Auto) 0.1 % White Blood Count 8.55 K/uL (4.8-10.8) Red Blood Count 4.01 M/uL (4.7-6.1) Hemoglobin 11.0 g/dL (14.0-18.0) Hematocrit 34.8 % (42-52) Mean Corpuscular Volume 86.8 fL (80-100) Mean Corpuscular Hemoglobin 27.4 pg (25-34) Mean Corpuscular Hemoglobin Concent 31.6 g/dl (32-36) Platelet Count 184 K/uL (130-400) Mean Platelet Volume 8.9 fL (7.4-10.4) Neutrophils (%) (Auto) 72.5 % Lymphocytes (%) (Auto) 10.9 % Monocytes (%) (Auto) 15.9 % Eosinophils (%) (Auto) 0.5 % Basophils (%) (Auto) 0.1 % Neutrophils # (Auto) 6.20 K/uL (1.4-6.5) Lymphocytes # (Auto) 0.93 K/uL (1.2-3.4) Monocytes # (Auto) 1.36 K/uL (0.11-0.59) Eosinophils # (Auto) 0.04 K/uL (0-0.5) Basophils # (Auto) 0.01 K/uL (0-0.2) Immature Granulocyte # (Auto) 0.01 K/uL (0.00-0.02) Activated Partial Thromboplast Time 36.9 SECONDS (21.0-31.0) Partial Thromboplastin Ratio 1.4 Urine Color YELLOW Urine Appearance CLEAR (CLEAR) Urine pH 5.0 (4.5-7.5) Urine Specific [place] 1.011 (1.000-1.030) Urine Protein 2+ (NEG) Urine Glucose (UA) NEG (NEG) Urine Ketones NEG (NEG) Urine Occult Blood 2+ (NEG) Urine Nitrite NEG (NEG) Urine Bilirubin NEG (NEG) Urine Urobilinogen NEG (NEG) Urine Leukocyte Esterase NEG (NEG) Urine WBC (Auto) 1-5 /hpf (0-5) Urine RBC (Auto) 0-4 /hpf (0-4) Urine Hyaline Casts (Auto) 1-5 /lpf (0-5) Urine Epithelial Cells (Auto) 10-20 /lpf (0-5) Urine Bacteria (Auto) NEG (NEG) Total Bilirubin 0.6 mg/dl (0.2-1) Aspartate Amino Transf (AST/SGOT) 18 U/L (15-37) Alanine Aminotransferase (ALT/SGPT) 28 U/L (12-78) Alkaline Phosphatase 81 U/L (45-117) Troponin I 0.029 ng/ml (0-0.045) Pro-B-Type Natriuretic Peptide 13831 pg/ml (0-1800) Total Protein 7.1 gm/dl (6.4-8.2) Globulin 4.2 gm/dl (2.5-4.0) Albumin/Globulin Ratio 0.7 (0.9-2) Total Creatine Kinase 136 U/L (39-308) Phosphorus Level 3.3 mg/dl (2.5-4.9) Albumin 2.9 gm/dl (3.4-5.0) Magnesium Level 2.0 mg/dl (1.8-2.4) Test 05/10/17 06:04 Red Blood Count 4.19 M/uL (4.7-6.1) Mean Corpuscular Volume 86.2 fL (80-100) Mean Corpuscular Hemoglobin 26.0 pg (25-34) Mean Corpuscular Hemoglobin Concent 30.2 g/dl (32-36) RDW Standard Deviation 53.2 fL (36.4-46.3) RDW Coefficient of Variation 16.8 % (11.5-14.5) Mean Platelet Volume 9.3 fL (7.4-10.4) Prothrombin Time 20.5 SECONDS (9.0-12.0) Prothromb Time International Ratio 2.0 (0.9-1.1) Anion Gap 9.0 mmol/L (3-11) Est Creatinine Clear Calc Drug Dose 21.8 ml/min Estimated GFR () 17.8 Estimated GFR (Non- 15.3 BUN/Creatinine Ratio 15.8 (10-20) Calcium Level 8.7 mg/dl (8.5-10.1) Date/Time Source Procedure Growth Status 05/03/17 21:45 Nasal MRSA DNA Surveillance Screen - Final Specimen Positive for MRSA by DNA Probe Complete Last 24 Hours Test 05/10/17 06:04 White Blood Count 8.70 K/uL Red Blood Count 4.19 M/uL Hemoglobin 10.9 g/dL Hematocrit 36.1 % Mean Corpuscular Volume 86.2 fL Mean Corpuscular Hemoglobin 26.0 pg Mean Corpuscular Hemoglobin Concent 30.2 g/dl RDW Standard Deviation 53.2 fL RDW Coefficient of Variation 16.8 % Platelet Count 208 K/uL Mean Platelet Volume 9.3 fL Prothrombin Time 20.5 SECONDS Prothromb Time International Ratio 2.0 Sodium Level 138 mmol/L Potassium Level 3.7 mmol/L Chloride Level 98 mmol/L Carbon Dioxide Level 32 mmol/L Anion Gap 9.0 mmol/L Blood Urea Nitrogen 57 mg/dl Creatinine 3.63 mg/dl Est Creatinine Clear Calc Drug Dose 21.8 ml/min Estimated GFR () 17.8 Estimated GFR (Non- 15.3 BUN/Creatinine Ratio 15.8 Random Glucose 96 mg/dl Calcium Level 8.7 mg/dl Assessment & Plan 76M was admitted for acute Diastolic CHF and MANUEL on CKD stage 4. 1. Acute kidney injury in setting of CKD Stage IV-cont management per Nephrology who has switched him from IV Lasix to PO Bumex today. Will watch for response overnight and consider dc in am. Apprec recs. 2. Acute on chronic diastolic heart failure-compensated. Likely related to MANUEL and volume retention. Apprec Cardiology recs. 3. Hypokalemia 2/2 diuretics-cont replacement. 4. CAD-stable, denies chest pain or new symptoms overnight. Cont Metoprolol, Plavix 5. Atrial fibrillation-cont Toprol at higher dose per Cards for better rate control. Diltiazem was stopped. Cont warfarin. INR at goal. 6. HTN-controlled. Cont Toprol 7. h/o C-diff-cont Vanc PO once daily for chronic suppressive therapy. 8. PVD-trace edema likely related to prior surgeries. I suggested RICK cobos, however, patient's wide reports that Dr. Richardson did not want him on them for an unknown reason. DVT proph-coumadin DNR Dispo-telemetry with poss dc home in am. Candy Nix DO [facility] Hospitalist Current Inpatient Medications: Current Inpatient Medications Medications (Trade) Dose Ordered Sig/Maria Guadalupe Route Start Time Stop Time Status Last Admin Dose Admin Albuterol (Ventolin Hfa Inhaler) 2 puffs QID INH 05/04/17 09:00 06/03/17 08:59 05/10/17 09:24 2 PUFFS Benzonatate (Tessalon Perles Cap) 100 mg TID PRN PO 05/03/17 21:30 06/02/17 21:29 Clopidogrel Bisulfate (plAVix TAB) 75 mg QAM PO 05/04/17 09:00 06/03/17 08:59 05/10/17 09:23 75 MG Lactobacillus Acidophilus (Floranex Tab) 1 tab TIDM PO 05/04/17 08:00 06/03/17 07:59 05/10/17 09:24 1 TAB Multivitamins (Multivitamin Tab) 1 tab QAM PO 05/04/17 09:00 06/03/17 08:59 05/10/17 09:24 1 TAB Warfarin Sodium (Coumadin Tab) 2 mg SuTuWeThFrSa@1600 PO 05/04/17 16:00 06/03/17 15:59 05/08/17 15:28 2 MG Warfarin Sodium (Coumadin Tab) 4 mg Mo@1600 PO 05/09/17 16:00 06/08/17 15:59 05/09/17 16:27 4 MG Pantoprazole Sodium (Protonix Tab) 40 mg QAM PO 05/04/17 09:00 06/03/17 08:59 05/10/17 09:24 40 MG Rosuvastatin Calcium (Crestor Tab) 40 mg HS PO 05/04/17 21:00 06/03/17 20:59 05/09/17 21:02 40 MG Vancomycin HCl (Vancomycin Oral Soln) 125 mg DAILY PO 05/06/17 09:00 05/20/17 08:59 05/10/17 09:32 125 MG Raspberry (Raspberry Syrup 5ml Cup) 5 ml QAM PO 05/06/17 09:00 05/20/17 08:59 05/10/17 09:24 5 ML Potassium Chloride (Klor-Con M10) 20 meq [id number] PO 05/06/17 14:00 06/04/17 13:59 05/10/17 09:23 20 MEQ Trazodone HCl (Desyrel Tab) 100 mg HS PO 05/07/17 21:00 06/03/17 20:59 05/09/17 21:03 100 MG Metoprolol Succinate (Toprol Xl Tab) 37.5 mg BID PO 05/09/17 21:00 06/08/17 20:59 05/10/17 09:23 37.5 MG
[2017-05-10 11:46] VITALS: BP 105/51; PULSE 75; TEMP 36.8; O2SAT 94
--- NOTE | 2017-05-10 12:29 | CARDIOLOGY PROGRESS NOTE ---
DATE: 05/10/2017 The patient seen and examined. Chart, medications, telemetry reviewed. SUBJECTIVE: The patient continues to demonstrate signs and symptoms of progress, was ambulatory in the hallway yesterday. Heart rates are trending slightly lower. Signs and symptoms of lower extremity edema are improved. Renal function has stabilized. Diuretics have been transitioned to oral via nephrology. OBJECTIVE: VITAL SIGNS: Heart rate is 84, blood pressure is 126/72. NECK: Without jugular venous distention. LUNGS: Reveal diminished breath sounds with few scattered rhonchi on forced cough. CARDIOVASCULAR: Irregularly irregular, without S3 or S4. ABDOMEN: Soft. EXTREMITIES: Reveal 1 to 2+ lower extremity edema, improved from past examinations. LABORATORY DATA: Sodium is 138, potassium is 3.7, chloride is 98, bicarbonate is 32, BUN is 57, creatinine is 3.6. White cell count is 8.7, hemoglobin is 10.9. INR is 2.0. IMPRESSION: A 76-year-old male admitted with acute worsening renal insufficiency and associated acute on chronic diastolic heart failure, now clinically improved with good diuresis. Medications have been switched to oral. Chronic atrial fibrillation rates have come under better control with the use of metoprolol succinate. We will avoid diltiazem previously used for rate control in this patient. He is appropriately anticoagulated with warfarin. We will gradually increase activities, continue to follow up.
[2017-05-10 15:25] VITALS: BP 110/67; PULSE 88; TEMP 36.6; O2SAT 93
[2017-05-10] MEDS: WARFARIN SOD 2 MG TAB PO SCH (16:02)
[2017-05-10 16:05] VITALS: BP 110/67; PULSE 88; TEMP 36.6; O2SAT 93
[2017-05-10] MEDS: TRAZODONE HCL 50 MG TAB PO SCH (20:47)
[2017-05-10] MEDS: ROSUVASTATIN CALCIUM 20 MG TAB PO SCH (20:47)
[2017-05-10 20:50] VITALS: BP 116/71; PULSE 75
[2017-05-11] MEDS ORDERED: POTASSIUM CHLORIDE 20 MEQ TABCR PO SCH
[2017-05-11 00:28] VITALS: BP 124/70; PULSE 92; TEMP 36.2; O2SAT 92
[2017-05-11 06:34] LABS: CALCIUM 8.6 mg/dl (8.5-10.1); CREATININE 3.49 mg/dl (0.60-1.40); POTASSIUM 3.9 mmol/L (3.5-5.1)
[2017-05-11] MEDS: POTASSIUM CHLORIDE 10 MEQ TABCR PO SCH (07:14)
[2017-05-11 07:53] VITALS: BP 97/52; PULSE 84; TEMP 36.6; O2SAT 84
[2017-05-11 08:00] VITALS: O2SAT 84
[2017-05-11] MEDS: RASPBERRY SYRUP 5 ML UDP PO SCH (08:06)
[2017-05-11] MEDS: VANCOMYCIN HCL 125 MG/2.5ML SOLN PO SCH (08:06)
[2017-05-11] MEDS: PANTOprazole SOD 40 MG TAB PO SCH (08:09)
[2017-05-11] MEDS: METOPROLOL SUCC 25MG EXT REL TAB PO SCH (08:09)
[2017-05-11] MEDS: MULTIVITAMIN TAB PO SCH (08:09)
[2017-05-11] MEDS: LACTOBACILLUS ACIDOPHILUS (FLORANEX) TAB PO SCH ×2 (08:09→11:51)
[2017-05-11] MEDS: CLOPIDOGREL BISULFATE 75 MG TAB PO SCH (08:09)
[2017-05-11] MEDS: ALBUTEROL HFA 8 GM INHALER INH SCH ×2 (08:10→11:51)
[2017-05-11 08:53] VITALS: BP 98/65; PULSE 86; O2SAT 92
--- NOTE | 2017-05-11 10:09 | PROGRESS NOTE ---
DATE: 05/11/2017 The patient seen and examined. Chart, medications, telemetry reviewed. SUBJECTIVE: The patient this morning feels well, has been ambulatory in room and hallway. Notes no worsening shortness of breath, chest pain or discomfort. Notes no dizziness or lightheadedness. Blood pressures are trending slightly lower, but well tolerated. OBJECTIVE: VITAL SIGNS: Heart rate is 86, blood pressure is 98/65. HEENT: Normocephalic and atraumatic. NECK: There is no jugular venous distention. There is no carotid bruits. LUNGS: Clear with other than a few scattered rhonchi on forced cough. CARDIOVASCULAR: Irregularly irregular. Grade 1/6 systolic murmurs, no diastolic murmur. ABDOMEN: Soft. EXTREMITIES: Without cyanosis or clubbing. Lower extremity edema is improved. DATA: Laboratory studies today, sodium is 140, potassium is 3.9, chloride is 101, bicarbonate is 34, BUN is 57, creatinine 3.49. Weight is 105.6 kilograms. IMPRESSION: A 76-year-old male with multiple chronic issues to include chronic atrial fibrillation, atherosclerotic coronary disease, atherosclerotic peripheral vascular disease, chronic renal insufficiency, now clinically improved after admission with acute on chronic diastolic heart failure and acute on chronic renal insufficiency. RECOMMENDATIONS: Continue current dosing of metoprolol succinate at 37.5 mg twice per day. Would recommend this being discharge medication. Would not resume diltiazem used prehospitalization. We will anticipate followup with cardiology in 2-3 weeks' time. Arrangements will be made for appointment.
--- NOTE | 2017-05-11 10:44 | Nephrology Progress Note ---
Nephrology Progress Note Date of Service May 11, 2017. Chief Complaint Acute on chronic kidney injury Subjective Mr. Mcmahan was seen & examined in his hospital room this morning. He has responded well to oral Bumex w/ 400 cc UO overnight. Weight this morning is 230 lbs. Mr. Mcmahan has trace to 1+ ankle edema but is now able to ambulate. He voices no new medical concerns and is anxious to return home. Review of Systems Constitutional: No fever Cardiovascular: No chest pain Respiratory: No dyspnea at rest Abdomen: No pain, No nausea, No vomiting Extremities: + problem reported (ankle edema) A complete review of systems was performed. Pertinent positives are noted above. All other systems are negative. Vital Signs Last 8 Hrs Date Time Temp Pulse Resp B/P (MAP) Pulse Ox O2 Delivery O2 Flow Rate FiO2 05/11/17 10:00 Room Air 05/11/17 08:53 86 98/65 (76) 92 Room Air 05/11/17 08:00 84 Room Air 05/11/17 07:53 36.6 84 16 97/52 (67) 84 Room Air Last Recorded Weight Weight (Kilograms): 105.600 Physical Exam General Appearance: no apparent distress Head: normocephalic, atraumatic Eyes: PERRL, EOMI Neck: no adenopathy Respiratory/Chest: lungs clear, no respiratory distress Cardiovascular: + irregularly irregular Abdomen/GI: normal bowel sounds, non tender, soft Extremities/Musculoskelatal: + swelling (1+ ankle edema) Neurologic/Psych: alert, oriented x 3 Family History Abdominal aortic aneurysm FATHER BROTHER Leukemia FATHER Social History Smoking Status: Current every day smoker Alcohol Use: 2 bourbon + crenshaw a day Drug Use: none Marital Status: Housing Status: lives with significant other Occupation: retired Lives in [place] with his . Laboratory Results Past 24 Hours 05/11/17 05:29 Test 05/11/17 05:29 Anion Gap 6.0 mmol/L (3-11) Est Creatinine Clear Calc Drug Dose 22.6 ml/min Estimated GFR () 18.6 Estimated GFR (Non- 16.1 BUN/Creatinine Ratio 16.3 (10-20) Calcium Level 8.6 mg/dl (8.5-10.1) Allergies Coded Allergies: No Known Allergies (Verified , 05/03/17) Medications Current Inpatient Medications Medications (Trade) Dose Ordered Sig/Maria Guadalupe Route Start Time Stop Time Status Last Admin Dose Admin Albuterol (Ventolin Hfa Inhaler) 2 puffs QID INH 05/04/17 09:00 06/03/17 08:59 05/11/17 08:10 2 PUFFS Benzonatate (Tessalon Perles Cap) 100 mg TID PRN PO 05/03/17 21:30 06/02/17 21:29 Clopidogrel Bisulfate (plAVix TAB) 75 mg QAM PO 05/04/17 09:00 06/03/17 08:59 05/11/17 08:09 75 MG Lactobacillus Acidophilus (Floranex Tab) 1 tab TIDM PO 05/04/17 08:00 06/03/17 07:59 05/11/17 08:09 1 TAB Multivitamins (Multivitamin Tab) 1 tab QAM PO 05/04/17 09:00 06/03/17 08:59 05/11/17 08:09 1 TAB Warfarin Sodium (Coumadin Tab) 2 mg SuTuWeThFrSa@1600 PO 05/04/17 16:00 06/03/17 15:59 05/10/17 16:02 2 MG Warfarin Sodium (Coumadin Tab) 4 mg Mo@1600 PO 05/09/17 16:00 06/08/17 15:59 05/09/17 16:27 4 MG Pantoprazole Sodium (Protonix Tab) 40 mg QAM PO 05/04/17 09:00 06/03/17 08:59 05/11/17 08:09 40 MG Rosuvastatin Calcium (Crestor Tab) 40 mg HS PO 05/04/17 21:00 06/03/17 20:59 05/10/17 20:47 40 MG Vancomycin HCl (Vancomycin Oral Soln) 125 mg DAILY PO 05/06/17 09:00 05/20/17 08:59 05/11/17 08:06 125 MG Raspberry (Raspberry Syrup 5ml Cup) 5 ml QAM PO 05/06/17 09:00 05/20/17 08:59 05/11/17 08:06 5 ML Potassium Chloride (Klor-Con M10) 20 meq [id number] PO 05/06/17 14:00 06/04/17 13:59 05/11/17 07:14 20 MEQ Trazodone HCl (Desyrel Tab) 100 mg HS PO 05/07/17 21:00 06/03/17 20:59 05/10/17 20:47 100 MG Metoprolol Succinate (Toprol Xl Tab) 37.5 mg BID PO 05/09/17 21:00 06/08/17 20:59 05/11/17 08:09 37.5 MG Impression (1) Chronic kidney disease, stage IV (severe) (2) Acute kidney injury (3) Atrial fibrillation (4) PVD (peripheral vascular disease) (5) Chronic diastolic (congestive) heart failure (6) HTN (hypertension) 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 Medical history also notable for CAD, PAD and atrial fibrillation. He was admitted with hypervolemia and evidence of progressive worsening renal function. Patient has refused dialysis. Mr. Mcmahan has atrial fibrillation managed w/ metoprolol and diltiazem. Blood pressure is slightly low but acceptable. UA is bland with acellular microscopy. Recommendations -- Continue Bumex 2 mg po BID. -- Dry weight is 230 lbs. Patient advised to weigh himself daily and take one extra Bumex dose daily as needed for weight > 235 lbs or worsening ankle edema -- Continue KCl 20 mEq BID -- Avoid JOE/ARB at this time -- Education provided today on 1500 mg NaCl restricted diet -- I have asked my fire prevention officer staff to contact patient and schedule Nephrology follow up office visit in 7 - 14 days. I have placed order in office EMR to have nonfasting blood & urine studies completed 24 hours prior to outpatient OV.
[2017-05-11] MEDS ORDERED: POTA1TAB97 PO (10:47)
[2017-05-11] MEDS ORDERED: METO-478 PO (10:47)
[2017-05-11] MEDS ORDERED: BUME2TAB3 PO (10:47)
[2017-05-11 10:48] VITALS: BP 146/60; PULSE 74; TEMP 36.8; O2SAT 92
--- NOTE | 2017-05-11 10:58 | Discharge Instructions ---
Discharge Instructions Date of Service May 11, 2017. Admission Reason for Admission: Acute Kidney Injury,Chf Discharge Discharge Diagnosis / Problem: MANUEL on CKD IV, Acute on chronic diastolic heart failure Discharge Goals Goal(s): Prevent Disease Progression Activity Recommendations Activity Limitations: per Instructions/Follow-up section . Instructions / Follow-Up Instructions / Follow-Up Call your Primary Care doctor if any of the following symptoms or problems start or get worse: * Shortness of breath or difficulty breathing * Wake up at night short of breath * Chest pain * Cough * Swelling of your hands, feet, or legs * More fatigued or tired with your normal activity * Palpitations - sudden fast heart beats WEIGHT * Weigh yourself every morning after using the bathroom. * Use the same scale. * Wear the same amount of clothing. * Write your weight down on a chart. * Call your Primary Care doctor if you gain more than 2-3 pounds in 1-2 days. MEDICATIONS * Use this discharge instruction sheet for medication instructions. * Take your medications at the time your doctor ordered. * Do not skip a dose of your medicines. * If you miss a dose of medicine, take it as soon as possible, but DO NOT DOUBLE A DOSE. * Read your medicine information when you get home. * Know all of the side effects of your medicine. If in doubt, ask your pharmacist * Call your Primary Care doctor's office if you have any side effects. * Be sure all of your doctors know what medicine and herbs you take (including cold, flu, and herbal medicine). Take the following with you to your follow-up doctor appointments: * Weight Chart * Medication List * List of questions Do not drink excessive alcohol, beer or wine. ADDITIONAL PROVIDER INSTRUCTIONS: -Please take all medications as instructed on discharge list. -Please follow-up with Nephrology (Dr. Pabon) and Cardiology (Dr. Wetzel) as instructed. -Please follow-up with the Anticoagulation Clinic this week for recheck of your coumadin level. -You have a follow-up appointment with Dr. Malcolm on 05/13 @ 1:55pm for follow-up from this hospitalization. It was a pleasure taking care of you! Call if you have any questions or problems. You can reach a [facility] hospitalist on duty at [facility] 24 hours a day by calling [phone]. Take care of yourself. DO Fabi Bradford Hospitalist Current Hospital Diet Patient's current hospital diet: AHA Diet (Heart Healthy), Regular Diet Discharge Diet Recommended Diet: AHA Diet (Heart Healthy) Procedures Procedures Performed: TTE Pending Studies Studies pending at discharge: no Medical Emergencies . Who to Call and When: Call 911 or go to the Emergency Room if: * If at any time you feel your situation is an emergency * You have tightness or pain in your chest that does not go away with rest or Nitroglycerin * You are very short of breath even with rest . Non-Emergent Contact Non-Emergency issues call your: Primary Care Provider . . "Provider Documentation" section prepared by Candy Nix. .
--- NOTE | 2017-05-11 11:12 | Discharge Summary ---
Discharge Summary Date of Service May 11, 2017. Discharge Summary Admission Date: May 03, 2017 at 19:30 Discharge Date: May 11, 2017 Discharge Disposition: Home Principal Diagnosis: acute on chronic diastolic heart failure acute on chronic renal insufficiency chronic atrial fibrillation atherosclerotic coronary disease atherosclerotic peripheral vascular disease Procedures: TTE: * The rhythm is atrial fibrillation with rapid ventricular response. * Ejection Fraction = 65-70%. * There is moderate concentric left ventricular hypertrophy. * Severe biatrial enlargement. * The right ventricle is borderline dilated. * The right ventricular systolic function is qualitatively normal. * Aortic valve sclerosis moderate, without significant aortic valvular stenosis. * There is mild mitral regurgitation. * There is mild to moderate tricuspid regurgitation. * The estimated systolic PAP is 65mmhg. Vaccinations: None. Consultations: Dr Ronny Pabon-Nephrology Dr. Norman Wetzel-Cardiology Pending Studies/Follow-Up: see instructions below. Medication Reconciliation New Medications: Bumetanide (Bumex) 2 Mg Tab 2 MG PO BID for 30 Days, #60 TAB Metoprolol Succinate (Toprol Xl) 25 Mg Tab 1.5 TAB PO DAILY for 30 Days, #60 TAB 1 Refill Potassium Chloride (K-Tab) 20 Meq Tab 20 MEQ PO BID for 30 Days, #60 TAB To be taken with Bumex Continued Medications: Albuterol Hfa (Ventolin Hfa) 200 Puffs/71349 Mcg Aers 2 PUFFS INH QID, #1 INHALER Benzonatate (Tessalon Perles) 100 Mg Cap 100 MG PO TID PRN for Cough, CAP Cholecalciferol (Vitamin D3) 1,000 Unit Tab 1000 INTER.UNIT PO QAM, TAB Cholestyramine (Prevalite) 4 Gm Pack 4 GM PO BID PRN for Diarrhea Clopidogrel Bisulfate (Clopidogrel) 75 Mg Tab 75 MG PO QAM Lactobacillus Acidophilus (Lactinex) Tab 1 TAB PO TIDM, TAB Multivitamin (Multivitamin) Tab 1 TAB PO QAM, TAB Omeprazole (Prilosec) 20 Mg Cap 20 MG PO QAM TAKE THIS MEDICATION ONCE DAILY 30 MINUTES BEFORE BREAKFAST Rosuvastatin Calcium (Rosuvastatin Calcium) 40 Mg Tab 40 MG PO QPM Trazodone Hcl (Trazodone) 50 Mg Tab 50 MG PO HS, TAB Vancomycin Hcl (Vancomycin) 125 Mg Cap 125 MG PO DAILY, #30 Warfarin Sod (Coumadin) 2 Mg Tab 2 MG PO 6XWK 2 mg tuesday, tuesday, , tuesday, tuesday, and tuesday Warfarin Sod (Coumadin) 2 Mg Tab 4 MG PO WK 4 mg on mondays Discontinued Medications: Diltiazem Hcl Ext Rel (Tiazac) 180 Mg Capcr 180 MG PO DAILY, CAP Furosemide (Lasix) 40 Mg Tab 40 MG PO DAILY, TAB Metoprolol Tartrate (Lopressor) (Lopressor) 25 Mg Tab 25 MG PO BID, TAB Admission Information HPI (per Admitting provider): 76 YO male followed by Dr. Malcolm for Family Medicine, Dr. Wetzel for Cardiology , and Dr. Rodrigues for Nephrology. History of ischemic heart disease, diastolic CHF, AF, CKD IV, and other problems noted below. Furosemide stopped in November because of worsening renal function; restarted at 40 mg daily on 04/28/17 because of worsening dependent edema. He has noted increasing dyspnea, malaise, weight gain, increased abdominal girth , and worsening edema. No chest pain. No fever, occasional cough. . Physical Exam (per Admitting): CONSTITUTIONAL vital signs as noted above well-developed, well-nourished, no acute distress EYES conjunctivae clear; lids normal pupils equal and reactive to light EARS, NOSE, MOUTH AND THROAT external inspection of ears and nose unremarkable hearing grossly intact to spoken voice with hearing aide oropharynx clear NECK no masses; trachea midline thyroid normal RESPIRATORY normal respiratory effort; no respiratory distress clear to percussion bibasilar rales CARDIOVASCULAR irregularly irregular III/ systolic murmur at base; no gallop or rub appreciated carotid arteries 2/2; bilateral bruits abdominal aorta not palpable pedal pulses diminished 3+ pretibial edema GASTROINTESTINAL normal bowel sounds, soft, nontender; no palpable masses no hepatomegaly or splenomegaly appreciated LYMPHATIC no cervical adenopathy MUSCULOSKELETAL no cyanosis; no digital clubbing no calf tenderness motor strength extremities grossly intact SKIN few excoriated lesions warm and dry NEUROLOGIC PERRL, EOMI, no facial palsy, no dysarthria, tongue midline patellar DTR's 2/2 PSYCHIATRIC oriented to person, place, time mood and affect appropriate . Hospital Course 76M was admitted for acute Diastolic CHF and MANUEL on CKD stage 4. 1. Acute kidney injury in setting of CKD Stage IV-cont management per Nephrology who has switched him from IV Lasix to PO Bumex today. Will watch for response overnight and consider dc in am. Apprec recs. 2. Acute on chronic diastolic heart failure-compensated. Likely related to MANUEL and volume retention. Apprec Cardiology recs. 3. Hypokalemia 2/2 diuretics-cont replacement. 4. CAD-stable, denies chest pain or new symptoms overnight. Cont Metoprolol, Plavix 5. Atrial fibrillation-cont Toprol at higher dose per Cards for better rate control. Diltiazem was stopped. Cont warfarin. INR at goal. 6. HTN-controlled. Cont Toprol 7. h/o C-diff-cont Vanc PO once daily for chronic suppressive therapy. 8. PVD-trace edema likely related to prior surgeries. I suggested RICK cobos, however, patient's wide reports that Dr. Richardson did not want him on them for an unknown reason. DVT proph-coumadin DNR Dispo-telemetry with poss dc home in am. Candy Nix DO [facility] Hospitalist Total time spent on discharge = 60 minutes This includes examination of the patient, discharge planning, medication reconciliation, and communication with other providers. [place] [address] Discharge Heart Failure (CHF) Patient Name: Vida Mcmahan JR Unit Number: [id number] Date of : 1940 Patient Status: Admitted Inpatient Attending Doctor: Candy Nix DO DI: CHF v5 Discharge Instructions Date of Service May 11, 2017. Admission Reason for Admission: Acute Kidney Injury,Chf Discharge Discharge Diagnosis / Problem: MANUEL on CKD IV, Acute on chronic diastolic heart failure Discharge Goals Goal(s): Prevent Disease Progression Activity Recommendations Activity Limitations: per Instructions/Follow-up section . Instructions / Follow-Up Instructions / Follow-Up Call your Primary Care doctor if any of the following symptoms or problems start or get worse: * Shortness of breath or difficulty breathing * Wake up at night short of breath * Chest pain * Cough * Swelling of your hands, feet, or legs * More fatigued or tired with your normal activity * Palpitations - sudden fast heart beats WEIGHT * Weigh yourself every morning after using the bathroom. * Use the same scale. * Wear the same amount of clothing. * Write your weight down on a chart. * Call your Primary Care doctor if you gain more than 2-3 pounds in 1-2 days. MEDICATIONS * Use this discharge instruction sheet for medication instructions. * Take your medications at the time your doctor ordered. * Do not skip a dose of your medicines. * If you miss a dose of medicine, take it as soon as possible, but DO NOT DOUBLE A DOSE. * Read your medicine information when you get home. * Know all of the side effects of your medicine. If in doubt, ask your pharmacist * Call your Primary Care doctor's office if you have any side effects. * Be sure all of your doctors know what medicine and herbs you take (including cold, flu, and herbal medicine). Take the following with you to your follow-up doctor appointments: * Weight Chart * Medication List * List of questions Do not drink excessive alcohol, beer or wine. ADDITIONAL PROVIDER INSTRUCTIONS: -Please take all medications as instructed on discharge list. -Please follow-up with Nephrology (Dr. Pabon) and Cardiology (Dr. Wetzel) as instructed. -Please follow-up with the Anticoagulation Clinic this week for recheck of your coumadin level. -You have a follow-up appointment with Dr. Malcolm on 05/13 @ 1:55pm for follow-up from this hospitalization. It was a pleasure taking care of you! Call if you have any questions or problems. You can reach a [facility] hospitalist on duty at [facility] 24 hours a day by calling [phone]. Take care of yourself. Candy Nix DO [facility] Hospitalist Current Hospital Diet Patient's current hospital diet: AHA Diet (Heart Healthy), Regular Diet Discharge Diet Recommended Diet: AHA Diet (Heart Healthy) Procedures Procedures Performed: TTE Pending Studies Studies pending at discharge: no Medical Emergencies . Who to Call and When: Call 911 or go to the Emergency Room if: * If at any time you feel your situation is an emergency * You have tightness or pain in your chest that does not go away with rest or Nitroglycerin * You are very short of breath even with rest . Non-Emergent Contact Non-Emergency issues call your: Primary Care Provider . . "Provider Documentation" section prepared by Candy Nix. . Additional Copies To Lamin Malcolm M.D.
[2017-05-11 11:20] VITALS: BP 146/60; PULSE 74; TEMP 36.8; O2SAT 92
[2017-05-11] MEDS ORDERED: TPRSR25 PO (12:48)
[2017-05-11] MEDS ORDERED: BUMETANIDE 1 MG TAB PO SCH (17:00)
== END 2017-05-11 13:25 | disposition home or self-care (01) | DRG 291 ==
LOC: C.EDB 14:56 → UNDOADMIN 19:30 → C.MSICU 19:30 → ENRESERV 20:10 → C.MSICU 21:18 → UNDOADMIN 21:18 → ENRESERV 05-06 21:43 → C.2E 05-06 21:59 → C.MSICU 05-06 21:59 → ENRESERV 05-10 14:24 → C.4E 05-10 16:03 → C.2E 05-10 16:03
PROVIDERS: ADMIT Hospitalist; ATTEND Hospitalist
DX: I13.0 Hypertensive heart and chronic kidney disease with heart failure and stage 1 through stage 4 chronic kidney disease, or unspecified chronic kidney disease (principal); I50.33 Acute on chronic diastolic (congestive) heart failure; N17.9 Acute kidney failure, unspecified; N18.4 Chronic kidney disease, stage 4 (severe); T50.2X5A Adverse effect of carbonic-anhydrase inhibitors, benzothiadiazides and other diuretics, initial encounter; I48.2 Chronic atrial fibrillation; I25.10 Atherosclerotic heart disease of native coronary artery without angina pectoris; I73.9 Peripheral vascular disease, unspecified; K21.9 Gastro-esophageal reflux disease without esophagitis; Z86.73 Personal history of transient ischemic attack (TIA), and cerebral infarction without residual deficits; Z95.1 Presence of aortocoronary bypass graft; Z87.891 Personal history of nicotine dependence; Z79.01 Long term (current) use of anticoagulants; D64.9 Anemia, unspecified; E87.6 Hypokalemia; Y92.019 Unspecified place in single-family (private) house as the place of occurrence of the external cause

== ENCOUNTER → 2017-05-16 | Outpatient (CLI) | payer MEDICARE, OTHER ==
[~2017-05-16] MED LIST changes: +BENZ100C84 PO; +BUME2TAB3 PO; +CHOL1000 PO; -CRDCD180 PO; +LCTX PO; +OMEP20CA9 PO; +PLV75 PO; +POTA1TAB97 PO; +QSTP/ PO; +ROSU40TA28 PO; +TCMD2 PO; +TPRSR25 PO; +TRAZ50TA35 PO; +VANC5CAP PO; +VNTHFA/IN INH
[2017-05-16 16:34] LABS: HEMATOCRIT 41.3 % (42-52); HEMOGLOBIN 12.9 g/dL (14.0-18.0); MEAN CELL VOLUME 86.8 fL (80-100); MEAN CORPUSCULAR HEMOGLOBIN 27.1 pg (25-34); MEAN CORPUSCULAR HGB CONC 31.2 g/dl (32-36); MEAN PLATELET VOLUME 10.1 fL (7.4-10.4); PLATELET COUNT 250 K/uL (130-400); RED CELL DISTRIBUTION WIDTH CV 17.2 % (11.5-14.5); RED CELL DISTRIBUTION WIDTH SD 54.4 fL (36.4-46.3); WHITE BLOOD COUNT 9.46 K/uL (4.8-10.8)
[2017-05-16 16:39] LABS: ALBUMIN 3.4 gm/dl (3.4-5.0); ALT/SGPT 27 U/L (12-78); BLOOD UREA NITROGEN 60 mg/dl (7-18); CALCIUM 9.6 mg/dl (8.5-10.1); CARBON DIOXIDE 33 mmol/L (21-32); CREATININE 4.02 mg/dl (0.60-1.40); GLUCOSE 100 mg/dl (70-99); POTASSIUM 4.7 mmol/L (3.5-5.1); SODIUM 135 mmol/L (136-145)
[2017-05-16 16:42] LABS: ALKALINE PHOSPHATASE 74 U/L (45-117); AST/SGOT 24 U/L (15-37)
== END | disposition home or self-care (01) ==
LOC: C.LABBFT 11:29
PROVIDERS: ATTEND Internal Medicine Nephrology
DX: N05.1 Unspecified nephritic syndrome with focal and segmental glomerular lesions (principal); I10 Essential (primary) hypertension; R80.9 Proteinuria, unspecified; N18.4 Chronic kidney disease, stage 4 (severe)

== ENCOUNTER → 2017-06-22 | Outpatient (CLI) | payer MEDICARE ==
[~2017-06-22] MED LIST changes: -BUME2TAB3 PO
[2017-06-22 16:29] LABS: HEMATOCRIT 39.3 % (42-52); HEMOGLOBIN 12.3 g/dL (14.0-18.0); MEAN CELL VOLUME 86.4 fL (80-100); MEAN CORPUSCULAR HGB CONC 31.3 g/dl (32-36); MEAN PLATELET VOLUME 9.2 fL (7.4-10.4); PLATELET COUNT 210 K/uL (130-400); RED CELL DISTRIBUTION WIDTH CV 19.1 % (11.5-14.5); RED CELL DISTRIBUTION WIDTH SD 60.3 fL (36.4-46.3); WHITE BLOOD COUNT 8.86 K/uL (4.8-10.8)
[2017-06-22 16:45] LABS: ALBUMIN 3.2 gm/dl (3.4-5.0); ALT/SGPT 23 U/L (12-78); BLOOD UREA NITROGEN 57 mg/dl (7-18); CALCIUM 9.1 mg/dl (8.5-10.1); CARBON DIOXIDE 28 mmol/L (21-32); CREATININE 3.71 mg/dl (0.60-1.40); GLUCOSE 147 mg/dl (70-99); POTASSIUM 3.7 mmol/L (3.5-5.1); SODIUM 129 mmol/L (136-145)
[2017-06-22 16:48] LABS: ALKALINE PHOSPHATASE 66 U/L (45-117); AST/SGOT 17 U/L (15-37); PHOSPHORUS 3.4 mg/dl (2.5-4.9); TOTAL PROTEIN 7.8 gm/dl (6.4-8.2)
== END | disposition home or self-care (01) ==
LOC: C.LABBFT 11:25
PROVIDERS: ATTEND Internal Medicine Nephrology
DX: I12.9 Hypertensive chronic kidney disease with stage 1 through stage 4 chronic kidney disease, or unspecified chronic kidney disease (principal); N25.81 Secondary hyperparathyroidism of renal origin; R80.9 Proteinuria, unspecified; N18.4 Chronic kidney disease, stage 4 (severe)

== ENCOUNTER → 2017-06-28 | Outpatient (CLI) | payer MEDICARE ==
[2017-06-28 12:30] LABS: HEMATOCRIT 39.3 % (42-52); HEMOGLOBIN 12.4 g/dL (14.0-18.0); MEAN CELL VOLUME 85.6 fL (80-100); MEAN CORPUSCULAR HGB CONC 31.6 g/dl (32-36); MEAN PLATELET VOLUME 9.1 fL (7.4-10.4); PLATELET COUNT 196 K/uL (130-400); RED CELL DISTRIBUTION WIDTH CV 18.8 % (11.5-14.5); RED CELL DISTRIBUTION WIDTH SD 59.3 fL (36.4-46.3); WHITE BLOOD COUNT 9.91 K/uL (4.8-10.8)
[2017-06-28 13:06] LABS: BLOOD UREA NITROGEN 54 mg/dl (7-18); CALCIUM 8.6 mg/dl (8.5-10.1); CARBON DIOXIDE 30 mmol/L (21-32); CREATININE 3.57 mg/dl (0.60-1.40); GLUCOSE 107 mg/dl (70-99); PHOSPHORUS 3.7 mg/dl (2.5-4.9); POTASSIUM 4.1 mmol/L (3.5-5.1); SODIUM 137 mmol/L (136-145)
== END | disposition home or self-care (01) ==
LOC: C.LABBFT 10:40
PROVIDERS: ATTEND Internal Medicine Nephrology
DX: N18.4 Chronic kidney disease, stage 4 (severe) (principal); I12.9 Hypertensive chronic kidney disease with stage 1 through stage 4 chronic kidney disease, or unspecified chronic kidney disease; R80.9 Proteinuria, unspecified; N25.81 Secondary hyperparathyroidism of renal origin

== ENCOUNTER → 2017-10-12 | Outpatient (CLI) | payer MEDICARE ==
[~2017-10-12] MED LIST changes: +ROSU40TA19 PO; -ROSU40TA28 PO
[2017-10-12 17:12] LABS: HEMATOCRIT 40.6 % (42-52); HEMOGLOBIN 13.1 g/dL (14.0-18.0); MEAN CELL VOLUME 91.4 fL (80-100); MEAN CORPUSCULAR HEMOGLOBIN 29.5 pg (25-34); MEAN CORPUSCULAR HGB CONC 32.3 g/dl (32-36); MEAN PLATELET VOLUME 9.5 fL (7.4-10.4); PLATELET COUNT 222 K/uL (130-400); RED CELL DISTRIBUTION WIDTH SD 52.9 fL (36.4-46.3); WHITE BLOOD COUNT 9.31 K/uL (4.8-10.8)
[2017-10-12 17:33] LABS: ALBUMIN 3.2 gm/dl (3.4-5.0); BLOOD UREA NITROGEN 48 mg/dl (7-18); CALCIUM 9.3 mg/dl (8.5-10.1); CARBON DIOXIDE 29 mmol/L (21-32); CREATININE 3.22 mg/dl (0.60-1.40); GLUCOSE 105 mg/dl (70-99); PHOSPHORUS 2.9 mg/dl (2.5-4.9); POTASSIUM 4.5 mmol/L (3.5-5.1); SODIUM 138 mmol/L (136-145)
== END | disposition home or self-care (01) ==
LOC: C.LABBFT 12:09
PROVIDERS: ATTEND Internal Medicine Nephrology
DX: I12.9 Hypertensive chronic kidney disease with stage 1 through stage 4 chronic kidney disease, or unspecified chronic kidney disease (principal); N25.81 Secondary hyperparathyroidism of renal origin; R80.9 Proteinuria, unspecified; N18.4 Chronic kidney disease, stage 4 (severe)

== ENCOUNTER 2021-03-27 05:33 | Observation (INO) ==
--- NOTE | 2021-03-27 06:00 | Emergency Department Note ---
Impression & Plan Acute upper gastrointestinal bleeding, History of melena Admit to the [facility] ED Provider Note NAME: Vida SANCHEZ JR AGE: 80 SEX: M ARRIVES VIA: Walk-In INFORMANT: Patient and his ED PROVIDER(S): Janett Messina DO CHIEF COMPLAINT: GI bleeding PLAN: Position: Admit to [facility] Condition: Stable MEDICAL DECISION MAKING: This is an 80-year-old male patient who presents to the emergency department with GI bleeding. The patient has had 3-4 melanotic stools overnight tonight. The patient had a similar presentation approximately 10 years ago that was associated with a gastric ulcer. He was seen by GI at that time but has not had any follow-up. The patient is on Coumadin for A. fib and heart failure. Most recent INR was 2.3. Patient had no preceding symptoms such as fatigue, weakness, lightheadedness or dizziness. Laboratory studies here were stable including H/H and BUN/creatinine. I discussed the case with the [facility] and they will evaluate for inpatient care and GI evaluation. Triage Nursing notes reviewed and agree with them. Additional history obtained from as is at the bedside Prior medical records reviewed Vital Signs: reviewed and remarkable for hypertension Differential diagnosis: Gastric ulcer, duodenal ulcer, diverticulitis, gastritis ER treatment provided: Diagnostics interpreted by me: ECG: Atrial fibrillation at a rate of [address] segment elevation or signs of ischemia. There is no ectopy. Cardiac Monitoring: She will fibrillation at a rate of 69 Laboratory studies: See below HPI: 80/M arrives for evaluation of melena. Patient explains that he was feeling in his usual state of health when he went to sleep tonight. He woke up at 3 AM with significant rectal bleeding (Melena.) Patient does take Coumadin for atrial fibrillation and diastolic heart failure. His last INR was 2.3. Patient denies having any preceding symptoms such as weakness, dizziness or fatigue. Denies any abdominal pain. ROS: See above HPI for pertinent positives & negatives. A total of 10 systems reviewed and were otherwise negative. PAST MEDICAL HISTORY:A. fib; diastolic heart failure; hypertension; PAST SURGICAL HISTORY:See Below FAMILY HISTORY:See Below SOCIAL HISTORY:Patient lives with his . He does not smoke or drink alcohol. HOME MEDICATIONS:See list ALLERGIES:None VITALS:See Below PHYSICAL EXAMINATION: HEENT: Head - normocephalic and atraumatic Pupils are equal, round, and reactive to light. Extraocular eye muscles are intact, and sclera are anicteric. Nose - moist nasal mucosa without discharge. Mouth - moist buccal mucosa. Oropharynx is nonerythematous and there is no tonsillar exudate or edema noted. Neck: Supple; no JVD or cervical lymphadenopathy Heart: Irregularly irregular rhythm with a controlled rate. There is a normal S1 and S2 with no murmurs, clicks, or gallops appreciated. Lungs: Clear to auscultation bilaterally with no wheezes, rales, or rhonchi. Abdomen: Soft, completely nontender, nondistended, with good bowel sounds. There are no palpable pulsatile masses or hepatosplenomegaly. There is no guarding, rigidity, or rebound noted. Extremities: Race pedal edema. There are easily palpable peripheral pulses. Skin: warm and dry with good turgor and no rashes. ED COURSE: Times/Reassessments: 0545: Patient was evaluated in room A 9. A complete history and physical was performed. An IV lock was initiated and labs were drawn as above. An order was placed for continuous cardiac monitoring. The zion garrett is in atrial fibrillation at a rate of 69. A twelve-lead EKG was obtained as described above. The patient was typed and screened for packed red blood cells. The patient had no further bloody bowel movements while here in the emergency department. Janett Messina DO Past Med/Surg History Medical History (Updated 03/27/21 @ 07:10 by Janett Messina DO) Vitamin D deficiency Social History Smoking Status: Former smoker Tobacco Type: Cigarettes Feels Safe at Home: Yes Allergies Allergies Allergy/AdvReac Type Severity Reaction Status Date / Time No Known Allergies Allergy Unknown Verified 09/03/19 11:18 Home Meds Home Medications Medication Instructions Recorded Confirmed multivitamin with minerals 1 tab PO 09/20/18 09/03/19 [Multiple Vitamin-Minerals] metoprolol succinate 25 mg 25 mg PO BID tab 02/26/19 03/27/21 tablet,extended release 24 hr Previous Rx's Medication Instructions Recorded Lactobacillus acidoph-L.bulgaricus 1 tab PO TID #360 tab 09/20/18 1 million cell chewable tablet (Lactinex) bumetanide 1 mg tablet 1 mg PO BID #60 tab 09/20/18 clopidogrel 75 mg tablet 75 mg PO DAILY #30 tab 09/20/18 omeprazole 20 mg capsule,delayed 20 mg PO DAILY #30 cap 09/20/18 release rosuvastatin 10 mg tablet (Crestor) 10 mg PO HS #30 tab 09/20/18 trazodone 50 mg tablet 50 mg PO DAILY #30 tab 09/20/18 warfarin 2 mg tablet (Coumadin) 2 mg PO DAILY #30 tab 09/20/18 vancomycin 125 mg capsule 125 mg PO DAILY #90 cap 11/17/18 bumetanide 2 mg tablet 2 mg PO .COMPLEX #60 tab 02/26/19 potassium chloride 20 mEq See Rx Instructions .ROUTE 07/25/20 tablet,extended .COMPLEX #90 tab release(part/cryst) (Klor-Con M) calcitriol 0.5 mcg capsule 0.5 mcg PO DAILY #90 cap 01/12/21 Results & Data (ED) Vital Signs Vital Signs - 24 hr 03/27/21 05:38 03/27/21 06:27 03/27/21 06:31 Temperature 36.5 C Temperature Source Temporal Artery Scan Pulse Rate 84 Pulse Rate [Apical] 69 Respiratory Rate 16 17 Respiratory Depth Normal Blood Pressure 172/73 H Blood Pressure [Right Arm] 140/77 Blood Pressure Mean 106 Blood Pressure Mean [Right Arm] 98 Blood Pressure Position Sitting Pulse Oximetry 95 91 Oxygen Delivery Method Room Air Room Air Room Air Sepsis Recent Fever Within 48 Hours No Sepsis New/Unexplained Change in Mental Status No Sepsis Action Taken by Nursing No Action Required Laboratory Data Result diagrams: 03/27/21 06:13 03/27/21 06:13 Lab Results 03/27/21 03/27/21 03/27/21 Range/Units 06:13 06:13 06:13 WBC 7.64 (4.8-10.8) K/uL RBC 4.50 L (4.7-6.1) M/uL Hgb 14.9 (14.0-18.0) g/dL Hct 44.7 (42-52) % MCV 99.3 (80-100) fL MCH 33.1 (25-34) pg MCHC 33.3 (32-36) g/dL RDW Std Deviation 50.8 H (36.4-46.3) fL RDW Coeff of Josefina 14.1 (11.5-14.5) % Plt Count 172 (130-400) K/uL MPV 9.3 (7.4-10.4) fL Immature Gran % (Auto) 0.1 % Neut % (Auto) 69.1 % Lymph % (Auto) 16.1 % [place] % (Auto) 13.2 % Eos % (Auto) 1.2 % Baso % (Auto) 0.3 % Neut # (Auto) 5.28 (1.4-6.5) K/uL Lymph # (Auto) 1.23 (1.2-3.4) K/uL [place] # (Auto) 1.01 H (0.11-0.59) K/uL Eos # (Auto) 0.09 (0-0.5) K/uL Baso # (Auto) 0.02 (0-0.2) K/uL Immature Gran # (Auto) 0.01 (0.00-0.02) K/uL PT 24.7 H (9.0-12.0) Seconds INR 2.6 H (0.9-1.1) APTT 39.6 H (21.0-31.0) Seconds PTT Ratio 1.5 Sodium 138 (136-145) mmol/L Potassium 4.3 (3.5-5.1) mmol/L Chloride 101 (98-107) mmol/L Carbon Dioxide 30 (21-32) mmol/L Anion Gap 7 (3-11) BUN 47 H (6-23) mg/dl Creatinine 2.89 H (0.6-1.4) mg/dl Est Cr Clr Drug Dosing 23.0 ml/min Est GFR ( Amer) 22.7 ml/min Est GFR (Non-Af Amer) 19.6 ml/min BUN/Creatinine Ratio 16.3 (10-20) Glucose 107 H (70-99(Fasting)) mg/dl Calcium 10.2 H (8.5-10.1) mg/dl Total Bilirubin 0.7 (0.2-1.0) mg/dl AST 17 (13-39) U/L ALT 11 (7-52) U/L Alkaline Phosphatase 46 (34-104) U/L Total Protein 6.7 (6.0-8.3) gm/dl Albumin 3.7 (3.4-5.0) gm/dl Globulin 3.0 (2.5-4.0) gm/dl Albumin/Globulin Ratio 1.2 (0.9-2) SARS-CoV-2, RNA, NAAT (NEGATIVE) 03/27/21 Range/Units 06:31 WBC (4.8-10.8) K/uL RBC (4.7-6.1) M/uL Hgb (14.0-18.0) g/dL Hct (42-52) % MCV (80-100) fL MCH (25-34) pg MCHC (32-36) g/dL RDW Std Deviation (36.4-46.3) fL RDW Coeff of Josefina (11.5-14.5) % Plt Count (130-400) K/uL MPV (7.4-10.4) fL Immature Gran % (Auto) % Neut % (Auto) % Lymph % (Auto) % [place] % (Auto) % Eos % (Auto) % Baso % (Auto) % Neut # (Auto) (1.4-6.5) K/uL Lymph # (Auto) (1.2-3.4) K/uL [place] # (Auto) (0.11-0.59) K/uL Eos # (Auto) (0-0.5) K/uL Baso # (Auto) (0-0.2) K/uL Immature Gran # (Auto) (0.00-0.02) K/uL PT (9.0-12.0) Seconds INR (0.9-1.1) APTT (21.0-31.0) Seconds PTT Ratio Sodium (136-145) mmol/L Potassium (3.5-5.1) mmol/L Chloride (98-107) mmol/L Carbon Dioxide (21-32) mmol/L Anion Gap (3-11) BUN (6-23) mg/dl Creatinine (0.6-1.4) mg/dl Est Cr Clr Drug Dosing ml/min Est GFR ( Amer) ml/min Est GFR (Non-Af Amer) ml/min BUN/Creatinine Ratio (10-20) Glucose (70-99(Fasting)) mg/dl Calcium (8.5-10.1) mg/dl Total Bilirubin (0.2-1.0) mg/dl AST (13-39) U/L ALT (7-52) U/L Alkaline Phosphatase (34-104) U/L Total Protein (6.0-8.3) gm/dl Albumin (3.4-5.0) gm/dl Globulin (2.5-4.0) gm/dl Albumin/Globulin Ratio (0.9-2) SARS-CoV-2, RNA, NAAT NEGATIVE (NEGATIVE) Discharge Plan Visit Data Chief Complaint: GI Assessment Stated Complaint: RECTAL BLEED ED Provider: Janett Messina Discharge Problem: Acute upper gastrointestinal bleeding, History of melena Forms Stand Alone Forms: [facility] Prescriptions Prescriptions: No Action vancomycin 125 mg capsule 125 mg PO DAILY Qty: 90 RF: 6 potassium chloride [Klor-Con M20] 20 mEq tablet,ER particles/crystals See Rx Instructions .ROUTE .COMPLEX Qty: 90 RF: 3 calcitriol 0.5 mcg capsule 0.5 mcg PO DAILY Qty: 90 RF: 3 metoprolol succinate 25 mg tablet extended release 24 hr 25 mg PO BID RF: 0 bumetanide 2 mg tablet 2 mg PO .COMPLEX Qty: 60 RF: 5 bumetanide 1 mg tablet 1 mg PO BID Qty: 60 RF: 2 clopidogrel 75 mg tablet 75 mg PO DAILY Qty: 30 RF: 2 warfarin [Coumadin] 2 mg tablet 2 mg PO DAILY Qty: 30 RF: 2 rosuvastatin [Crestor] 10 mg tablet 10 mg PO HS Qty: 30 RF: 5 Lactinex 1 million cell tablet,chewable 1 tab PO TID Qty: 360 RF: 0 multivitamin with minerals 1 tab PO RF: 0 omeprazole 20 mg capsule,delayed release(DR/EC) 20 mg PO DAILY Qty: 30 RF: 2 trazodone 50 mg tablet 50 mg PO DAILY Qty: 30 RF: 2 Referrals Referrals: Lamin Malcolm MD [Primary Care Provider] -
[2021-03-27 06:22] LABS: Basophils # (auto) 0.02 K/uL (0-0.2); Basophils % (auto) 0.3 %; Eosinophils # (auto) 0.09 K/uL (0-0.5); Eosinophils % (auto) 1.2 %; Hematocrit (blood only) 44.7 % (42-52); Hemoglobin 14.9 g/dL (14.0-18.0); Immature Granulocytes # (auto) 0.01 K/uL (0.00-0.02); Immature Granulocytes % (auto) 0.1 %; Lymphocytes # (auto) 1.23 K/uL (1.2-3.4); Lymphocytes % (auto) 16.1 %; Mean Corpuscular Hemoglobin 33.1 pg (25-34); Mean Corpuscular Hgb Conc 33.3 g/dL (32-36); Mean Corpuscular Volume 99.3 fL (80-100); Mean Platelet Volume 9.3 fL (7.4-10.4); Monocytes # (auto) 1.01 K/uL (0.11-0.59); Monocytes % (auto) 13.2 %; Neutrophils # (auto) 5.28 K/uL (1.4-6.5); Neutrophils % (auto) 69.1 %; Platelet Count 172 K/uL (130-400); RDW Coefficient of Variation 14.1 % (11.5-14.5); RDW Standard Deviation 50.8 fL (36.4-46.3); White Blood Count 7.64 K/uL (4.8-10.8)
[2021-03-27 06:40] LABS: INR 2.6 (0.9-1.1); Partial Thromboplastin Ratio 1.5; Partial Thromboplastin Time 39.6 Seconds (21.0-31.0); Prothrombin Time 24.7 Seconds (9.0-12.0)
[2021-03-27 06:46] LABS: Albumin Globulin Ratio 1.2 (0.9-2); Albumin Level 3.7 gm/dl (3.4-5.0); BUN Creatinine Ratio 16.3 (10-20); Bilirubin,Total 0.7 mg/dl (0.2-1.0); Calcium 10.2 mg/dl (8.5-10.1); Est GFR (African American) 22.7 ml/min; Est GFR (Non-African American) 19.6 ml/min; Potassium 4.3 mmol/L (3.5-5.1); Total Protein 6.7 gm/dl (6.0-8.3)
[2021-03-27] MEDS ORDERED: PANTOPRAZOLE BOLUS/DRIP 1 EA IV STA (07:02)
[2021-03-27] MEDS ORDERED: PHYTONADIONE 10 MG in DEXTROSE 5% 50 ML IV ONE (07:02)
[2021-03-27] MEDS ORDERED: PANTOprazole 80 MG in DEXTROSE 5% 100 ML IV ONE ×2 (07:15→10:44)
[2021-03-27] MEDS: PANTOprazole 40 MG in DEXTROSE 5% 100 ML IV SCH ×4 (08:12→22:08)
--- NOTE | 2021-03-27 08:45 | History and Physical Report ---
DATE OF ADMISSION: 03/27/2021. CHIEF COMPLAINT: Melena. 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 The patient says he woke up at 3:00 a.m. in the morning and he has developed 4-5 episodes of melena, he had one episode in the ER. He is hemodynamically stable. No abdominal pain. No nausea, no vomiting. Denies any chest pain or shortness of breath, no headache, no blurred visions, no dizziness, no runny nose, no sore throat. No cough. Appetite is okay. Currently, resting comfortably and hemodynamically stable. The patient had a similar episode about 10 years ago and he was found to have gastric ulcer at that time. The patient is on Coumadin and Plavix. Denies any [id number] Aleve or ibuprofen. The patient is also on p.o. vancomycin once daily since last 2 years for recurrent C. diff. ALLERGIES: No known drug allergies. PAST MEDICAL HISTORY: As mentioned above. PAST SURGICAL HISTORY: Ablation for atrial flutter, colonoscopy, CABG, EGD, EGD with endoscopic ultrasound, right femoral endarterectomy and left femoral stent, left femoral popliteal arterial revascularization with stent and angioplasty, excision of cyst in the left back, incision and drainage of the hematoma, ligation of angio access arteriovenous fistula, left carotid enterectomy, right carotid endarterectomy, left femoral bypass graft. MEDICATIONS: The patient on Bumex 1 mg p.o. b.i.d. and 2 mg every other day, calcitriol 0.5 mcg p.o. daily, Plavix 75 mg p.o. daily, probiotics 1 tablet p.o. t.i.d., metoprolol succinate 25 mg p.o. b.i.d., multivitamins daily, omeprazole 20 mg p.o. daily, potassium chloride 20 mEq as directed, atorvastatin 10 mg p.o. at bedtime, trazodone 50 mg p.o. daily, vancomycin 125 mg p.o. daily, Coumadin 2 mg p.o. daily and as directed. FAMILY HISTORY: Significant for brother has abdominal aortic aneurysm; father had abdominal aortic aneurysm; father had leukemia. SOCIAL HISTORY: . Quit smoking in 2016. Smoked 0.4 packs a day for 53 years, 10 standard drinks of alcohol per week. No drug use. REVIEW OF SYSTEMS: As per HPI. Rest of the review of systems is negative. PHYSICAL EXAMINATION: GENERAL: The patient is of moderate build, not in acute distress. VITAL SIGNS: Temperature 36.5, pulse 75, respiratory rate 18, blood pressure 118/70, oxygen 91% on room air. HEENT: Pupils equal, round and reactive to light. Oral mucosa moist. NECK: No JVD, no neck masses. CARDIOVASCULAR: S1 and S2 heard. Regular rate and rhythm. No murmur, no gallop. RESPIRATORY SYSTEM: Normal AP diameter. No accessory muscle use. No wheezing, no crackles. ABDOMEN: Soft, bowel sounds present, nontender, no distention. CENTRAL NERVOUS SYSTEM: Cranial nerves II-XII grossly intact, nonfocal. EXTREMITIES: Bilateral lower extremity edema present, no erythema seen. LABORATORY DATA: WBC 7.6, hemoglobin 14.9, hematocrit 44.7, platelets 172. PT 24.7, INR 2.6. APTT 39.6. Sodium 138, potassium 4.3, chloride 101, bicarbonate 30, BUN 47, creatinine 2.89. Serum glucose 107, calcium 10.2, total bilirubin 0.7, AST 17, ALT 11, alkaline phosphatase 46. Stool occult blood positive. SARS-CoV-2 RNA negative. EKG: Atrial fibrillation at a rate of 65. ASSESSMENT AND PLAN: This is an 80-year-old male who presents with melena. 1. Melena, possible upper GI bleed, history of gastric ulcer in the past, on Plavix and Coumadin. INR is 2.6, we will reverse with IV vitamin K. Hemoglobin stable at 14.9. Blood consent obtained. Started on Protonix drip. H and H q. 6 hours n.p.o., gentle fluids. Consult GI. Closely monitor in tele floor. 2. History of coronary artery disease, status post coronary artery bypass grafting. Continue his metoprolol succinate, holding Plavix. Continue statin. 3. History of atrial fibrillation, rate controlled with metoprolol succinate, holding his Coumadin, reversing INR. Restart Coumadin when able. 4. Hyperlipidemia. Continue statin. 5. Peripheral vascular disease with bilateral carotid endarterectomy. Holding Plavix. Continue statin. 6. Chronic kidney disease stage IV, creatinine of 2.8, seems to be at baseline. We will follow the labs. 7. History of diastolic congestive heart failure. Holding his Bumex and getting gentle fluids, monitor for any volume overload. Continue metoprolol succinate. 8. Chronic recurrent Clostridium difficile. Continue his home p.o. vancomycin. 9. Deep venous thrombosis prophylaxis: Sequential compression devices. DISPOSITION: Closely monitor in the tele floor. Level 1 full code. Expect to discharge home and follow with family doctor. PT, OT prior to discharge. Job ID: [id number] MTDD
[2021-03-27] MEDS ORDERED: ACETAMINOPHEN 325 MG TAB PO PRN (10:44)
[2021-03-27] MEDS ORDERED: PANTOprazole 40 MG in DEXTROSE 5% 100 ML IV SCH (10:44)
[2021-03-27] MEDS ORDERED: NITROGLYCERIN SL 0.4 MG/TAB TAB SL PRN (10:44)
[2021-03-27] MEDS ORDERED: SODIUM CHLORIDE 0.9% 1000ML 1,000 ML IV SCH (10:44)
[2021-03-27] MEDS ORDERED: ONDANSETRON INJ 2 MG/ML 2 ML VIAL IV PRN (10:44)
[2021-03-27] MEDS: CALCITRIOL 0.25 MCG CAPSULE PO SCH (11:34)
[2021-03-27] MEDS: traZODone HCL 50 MG TAB PO SCH (11:34)
[2021-03-27] MEDS: METOPROLOL SUCC 25MG EXT REL TAB PO SCH ×2 (11:34→20:55)
[2021-03-27] MEDS: RASPBERRY SYRUP 5 ML UDP PO SCH (11:35)
[2021-03-27] MEDS: VANCOMYCIN HCL 125 MG/2.5ML SOLN PO SCH (11:35)
[2021-03-27 11:50] LABS: Hematocrit (blood only) 44.9 % (42-52)
--- NOTE | 2021-03-27 12:39 | Gastrointestinal Consultation ---
Date of Consultation March 27, 2021 Assessment & Plan (1) Rectal bleeding: Symptoms are most consistent with diverticular bleeding. He does not have abdominal pain. The bowel movements are mostly red though there is some black. His BUN is elevated but he has chronically elevated BUN with his CKD and his BUN does not seem to be above its baseline. Reverse/hold Coumadin. Monitor hemoglobin hematocrit BUN and carefully document outputs. Keep n.p.o. initially today however if is stable later today may have clear liquids. Tentatively, will plan for EGD and colonoscopy on Tuesday depending on continued clinical course. Supervising Physician Co-Signing Physician Notes I performed a history and physical examination of the patient today, including specifically on physical exam - soft abdomen. I have discussed the patient's management with the advanced practitioner. Please refer to the nurse practitioner's note for the documented findings and plan of care. Patient with ongoing hematochezia, seems diverticular. Plan to start bowel prep now in anticipation for a colonoscopy tomorrow. Correct his INR. History of Present Illness Reason for Consultation: Rectal bleeding Requesting Physician: Dr Garcia Attending Physician: Marie Bourne MD History of Present Illness Mr Vida Barron, "Miles" Marj is an 80 yr old male pt of Dr. Malcolm with a hx of CAD, diastolic heart failure, PAD, A-fib on warfarin, HTN, history of C. difficile on chronic vancomycin treatment. He was awakened this morning at 3 AM with a need to defecate. Bowel movement at that time consisted of mostly bright red blood with some small amounts of fecal material that were black. Since that time there has been another 6 or 7 bowel movements initially larger volume more recently smaller volume with more black material as well as the continued red blood. He has not had any abdominal pain he denies any recent episodes of feeling faint or lightheaded. He has not been ill with any other symptoms. No nausea or vomiting. No recent reflux. He does carry a history of gastric ulcer disease, with most recent EGD in 2010 showing healing of the prior ulcer. 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 His most recent colonoscopy was 2010 with one 3 mm polyp in the transverse colon as well as severe diverticulosis. Allergies Allergy/AdvReac Type Severity Reaction Status Date / Time No Known Allergies Allergy Unknown Verified 09/03/19 11:18 Home Medications Medication Instructions Recorded Confirmed Type Lactobacillus acidoph-L.bulgaricus 1 tab PO TID #360 tab 09/20/18 09/03/19 Rx 1 million cell chewable tablet (Lactinex) bumetanide 1 mg tablet 1 mg PO BID #60 tab 09/20/18 03/27/21 Rx clopidogrel 75 mg tablet 75 mg PO DAILY #30 tab 09/20/18 03/27/21 Rx multivitamin with minerals 1 tab PO 09/20/18 09/03/19 History [Multiple Vitamin-Minerals] omeprazole 20 mg capsule,delayed 20 mg PO DAILY #30 cap 09/20/18 03/27/21 Rx release rosuvastatin 10 mg tablet (Crestor) 10 mg PO HS #30 tab 09/20/18 03/27/21 Rx trazodone 50 mg tablet 50 mg PO DAILY #30 tab 09/20/18 03/27/21 Rx warfarin 2 mg tablet (Coumadin) 2 mg PO DAILY #30 tab 09/20/18 03/27/21 Rx vancomycin 125 mg capsule 125 mg PO DAILY #90 cap 11/17/18 03/27/21 Rx bumetanide 2 mg tablet 2 mg PO .COMPLEX #60 tab 02/26/19 03/27/21 Rx metoprolol succinate 25 mg 25 mg PO BID tab 02/26/19 03/27/21 History tablet,extended release 24 hr potassium chloride 20 mEq See Rx Instructions .ROUTE 07/25/20 03/27/21 Rx tablet,extended .COMPLEX #90 tab release(part/cryst) (Klor-Con M) calcitriol 0.5 mcg capsule 0.5 mcg PO DAILY #90 cap 01/12/21 03/27/21 Rx Patient History Medical History (Updated 03/27/21 @ 12:46 by MAMADOU Belcher) Vitamin D deficiency Social History Smoking Status: Former smoker Tobacco Type: Cigarettes Second Hand Exposure: No; Do You Dip or Chew Tobacco: No; Tobacco Cessation Education Requested by Patient: No Hx Alcohol Use: No Hx Substance Use: No Preferred Language: [place] Communication Ability: Effective Nurse Receptionist Required: Voice Beliefs That Will Affect Care: None Current Living Situation: Alone Other Information That Helps Us Care for You: No Feels Safe at Home: Yes Safety Concerns: Feels Safe At This Time Assistive Devices: None Review of Systems Review of Systems: ROS: Gen: Denies weakness, fevers, weight loss Eyes: No eye redness, or pain, no recent vision changes Resp: No SOB, no cough Cardio: No palpitations/irregular beats, no chest pain GI:As per HPI, otherwise (-). : Denies pain on urination Skin: No jaundice, itching or new rashes 12 systems are reviewed all others negative. Physical Exam Constitutional: well developed and cooperative Eyes: PERRL, conjunctivae normal, anicteric sclerae ENMT: external ear and nose normal, oropharynx normal Respiratory: normal respiratory effort, lungs clear to auscultation normal respiratory effort and able to speak in complete sentences; no respiratory distress, no labored breathing, does not use accessory muscles and no cough Cardiovascular: RRR, no murmur, no edema Gastrointestinal (Abdomen): normal bowel sounds, soft, nontender, no hepatosplenomegaly Skin: no rashes, warm and dry normal turgor Neurologic: PERRL, EOMI, accommodation nl, no face palsy, no dysarthria awake; not confused Psychiatric: A+Ox3, euthymic affect Orientation: cooperative Lymphatic: no cervical or axillary lymphadenopathy Results & Data ([facility]) Vital Signs (Past 12 Hours) Vital Signs Temp Pulse Pulse Resp BP BP Pulse Ox 03/27/21 10:57 62 17 145/89 H 92 03/27/21 10:23 69 17 145/89 H 03/27/21 10:01 69 17 145/89 H 03/27/21 09:00 74 17 137/78 03/27/21 08:30 72 15 03/27/21 08:00 64 18 119/83 03/27/21 07:30 59 L 19 143/80 H 03/27/21 07:15 75 18 118/70 91 03/27/21 07:12 75 23 118/70 93 03/27/21 06:31 69 17 140/77 91 03/27/21 05:38 36.5 C 84 16 172/73 H 95 Laboratory Results WBC 7, Hb 4.5, HCT 14.9, glucose 172, NA 138, K4.3, CL 101, CO2 30, BUN 47, CR 2.89, glucose 107, occult stools positive. Covid is negative.
[2021-03-27] MEDS: LACTOBACILLUS ACIDOPHILUS 1 GM PACK PO SCH ×2 (13:34→20:55)
--- NOTE | 2021-03-27 14:06 | Electrocardiogram Report ---
Test Reason : Blood Pressure : / mmHG Vent. Rate : 065 BPM Atrial Rate : 187 BPM P-R Int : 000 ms QRS Dur : 098 ms QT Int : 424 ms P-R-T Axes : 000 032 038 degrees QTc Int : 440 ms Atrial fibrillation Abnormal ECG When compared with ECG of 05-MAY-2017 08:22, Vent. rate has decreased BY 42 BPM Confirmed by Jose Velasco ([id number]) on 03/27/2021 2:06:28 PM Referred By: Confirmed By:Jose Velasco
[2021-03-27] MEDS ORDERED: LAVAGE SOLUTION 4000ML PO ONE (16:00)
--- NOTE | 2021-03-27 16:33 | Communication Note ---
Date of Service: March 27, 2021 Patient seen and examined Agree with findings and plans as detailed by Dr Watkins this morning GI recs appreciated Start clears Monitor H/H NPO PMN in case urgent scopes needed based on hemodynamic status. If not, will get EGD/c scope on tuesday Hold IVF for now while on clears as patient takes lasix at home which is currently on hold
[2021-03-27 17:48] LABS: Hematocrit (blood only) 42.9 % (42-52); Hemoglobin 14.3 g/dL (14.0-18.0)
[2021-03-27] MEDS: ROSUVASTATIN CALCIUM 10 MG TAB PO SCH (20:55)
[2021-03-27 23:22] LABS: Hematocrit (blood only) 40.9 % (42-52); Hemoglobin 13.9 g/dL (14.0-18.0)
[2021-03-28] MEDS: PANTOprazole 40 MG in DEXTROSE 5% 100 ML IV SCH ×5 (03:05→22:55)
[2021-03-28 05:43] LABS: Basophils # (auto) 0.01 K/uL (0-0.2); Basophils % (auto) 0.1 %; Eosinophils % (auto) 1.3 %; Hematocrit (blood only) 40.2 % (42-52); Hemoglobin 13.3 g/dL (14.0-18.0); Immature Granulocytes # (auto) 0.02 K/uL (0.00-0.02); Immature Granulocytes % (auto) 0.3 %; Lymphocytes % (auto) 13.9 %; Mean Corpuscular Hemoglobin 32.7 pg (25-34); Mean Corpuscular Hgb Conc 33.1 g/dL (32-36); Mean Corpuscular Volume 98.8 fL (80-100); Mean Platelet Volume 9.3 fL (7.4-10.4); Monocytes # (auto) 0.92 K/uL (0.11-0.59); Monocytes % (auto) 11.6 %; Neutrophils # (auto) 5.79 K/uL (1.4-6.5); Neutrophils % (auto) 72.8 %; Platelet Count 153 K/uL (130-400); RDW Coefficient of Variation 13.8 % (11.5-14.5); RDW Standard Deviation 49.7 fL (36.4-46.3); Red Blood Count 4.07 M/uL (4.7-6.1); White Blood Count 7.94 K/uL (4.8-10.8)
[2021-03-28 05:50] LABS: INR 1.4 (0.9-1.1); Prothrombin Time 13.8 Seconds (9.0-12.0)
[2021-03-28 06:01] LABS: BUN Creatinine Ratio 14.6 (10-20); Calcium 9.2 mg/dl (8.5-10.1); Est GFR (African American) 21.6 ml/min; Est GFR (Non-African American) 18.6 ml/min; Magnesium 1.9 mg/dl (1.7-2.4); Potassium 4.6 mmol/L (3.5-5.1)
--- NOTE | 2021-03-28 07:22 | Anesthesiology Consultation ---
Date of Service March 28, 2021 Assessment & Plan (1) Encounter for pre-operative examination: Chart Review Chart Review: Acceptable Risk for Surgery (Urgent procedure) History Surgery Operation Date: 03/28/21 11:45 Proposed Procedures p Colonoscopy - Nicky Ferrer MD Height/Weight Height: 6 ft 1 in Weight: 106.2 kg Allergies Allergy/AdvReac Type Severity Reaction Status Date / Time No Known Allergies Allergy Unknown Verified 09/03/19 11:18 Medications Home Medications Medication Instructions Recorded Confirmed Last Taken Lactobacillus acidoph-L.bulgaricus 1 tab PO TID #360 tab 09/20/18 09/03/19 03/26/21 1 million cell chewable tablet (Lactinex) bumetanide 1 mg tablet 1 mg PO BID #60 tab 09/20/18 03/27/21 03/26/21 clopidogrel 75 mg tablet 75 mg PO DAILY #30 tab 09/20/18 03/27/21 03/26/21 multivitamin with minerals 1 tab PO 09/20/18 09/03/19 03/26/21 [Multiple Vitamin-Minerals] omeprazole 20 mg capsule,delayed 20 mg PO DAILY #30 cap 09/20/18 03/27/21 03/26/21 release rosuvastatin 10 mg tablet (Crestor) 10 mg PO HS #30 tab 09/20/18 03/27/21 03/26/21 trazodone 50 mg tablet 50 mg PO DAILY #30 tab 09/20/18 03/27/21 03/26/21 warfarin 2 mg tablet (Coumadin) 2 mg PO DAILY #30 tab 09/20/18 03/27/21 Unknown vancomycin 125 mg capsule 125 mg PO DAILY #90 cap 11/17/18 03/27/21 03/26/21 bumetanide 2 mg tablet 2 mg PO .COMPLEX #60 tab 02/26/19 03/27/21 03/26/21 metoprolol succinate 25 mg 25 mg PO BID tab 02/26/19 03/27/21 03/26/21 tablet,extended release 24 hr potassium chloride 20 mEq See Rx Instructions .ROUTE 07/25/20 03/27/21 03/26/21 tablet,extended .COMPLEX #90 tab release(part/cryst) (Klor-Con M) calcitriol 0.5 mcg capsule 0.5 mcg PO DAILY #90 cap 01/12/21 03/27/21 03/26/21 Active Medications Generic Name Dose Route Start Last Admin Trade Name Toshia PRN Reason Stop Dose Admin Calcitriol 0.5 mcg 03/27/21 11:15 03/27/21 11:34 Calcitriol 0.25 Mcg Capsule PO 04/26/21 11:14 0.5 mcg DAILY ELIS Administration Pantoprazole Sodium 40 mg/ 100 mls @ 20 mls/hr 03/27/21 07:30 03/28/21 03:05 Dextrose IV 04/26/21 07:29 8 mg/hr Q5H ELIS 20 mls/hr Administration 8 MG/HR Lactobacillus Acidophilus 1 gm 03/27/21 14:00 03/27/21 20:55 Lactobacillus Acidophilus 1 Gm Pack PO 04/26/21 13:59 1 gm TID ELIS Administration Metoprolol Succinate 25 mg 03/27/21 11:00 03/27/21 20:55 Metoprolol Succ 25mg Ext Rel Tab PO 04/26/21 10:59 25 mg BID ELIS Administration Raspberry 5 ml 03/27/21 11:15 03/27/21 11:35 Raspberry Syrup 5 Ml Udp PO 04/06/21 11:14 5 ml DAILY ELIS Administration Rosuvastatin Calcium 10 mg 03/27/21 21:00 03/27/21 20:55 Rosuvastatin Calcium 10 Mg Tab PO 04/26/21 20:59 10 mg HS ELIS Administration Trazodone HCl 50 mg 03/27/21 11:00 03/27/21 11:34 Trazodone Hcl 50 Mg Tab PO 04/26/21 10:59 50 mg DAILY ELIS Administration Vancomycin HCl 125 mg 03/27/21 11:15 03/27/21 11:35 Vancomycin Hcl 125 Mg/2.5ml Soln PO 04/26/21 11:14 125 mg DAILY ELIS Administration Past Medical History Medical History (Updated 03/28/21 @ 07:21 by Gil Oreilly MD) Atrial fibrillation CAD (coronary artery disease) Chronic diastolic (congestive) heart failure Chronic kidney disease, stage IV (severe) HTN (hypertension) PVD (peripheral vascular disease) Stroke TIA (transient ischemic attack) Vitamin D deficiency Past Surgical History Surgical History (Updated 03/28/21 @ 07:19 by Gil Oreilly MD) H/O vascular surgery "2000 - right femoral endarterectomy, left femoral stent 04/25/15 - left common femoral endarterectomy, left common deep femoral endarterectomy, left common and external iliac stent and angioplasty, left femoral and popliteal stent and angioplasty" History of CEA (carotid endarterectomy) "left - 2007, right - 2010" S/P CABG x 3 Social History Smoking Status: Former smoker Do You Dip or Chew Tobacco: No Hx Alcohol Use: No Hx Substance Use: No Physical Exam Vital Signs Last Vital Signs Temp 36.7 C 03/28/21 06:54 Pulse 74 03/28/21 06:54 Resp 19 03/28/21 06:54 BP 106/57 L 03/28/21 06:54 Pulse Ox 93 03/28/21 06:54 Testing Laboratory Results 03/28/21 05:22 03/28/21 05:22 PT 13.8 Seconds (9.0-12.0) H 03/28/21 05:22 INR 1.4 (0.9-1.1) H 03/28/21 05:22 APTT 39.6 Seconds (21.0-31.0) H 03/27/21 06:13 Blood Type A Positive 03/27/21 06:13 Antibody Screen NEGATIVE 03/27/21 06:13 Electrocardiogram Date: 03/27/21 Findings: + AFIB @ (65)
[2021-03-28] MEDS: CALCITRIOL 0.25 MCG CAPSULE PO SCH (08:32)
[2021-03-28] MEDS: METOPROLOL SUCC 25MG EXT REL TAB PO SCH ×2 (08:32→20:44)
[2021-03-28] MEDS: LACTOBACILLUS ACIDOPHILUS 1 GM PACK PO SCH ×3 (08:32→20:44)
[2021-03-28] MEDS: RASPBERRY SYRUP 5 ML UDP PO SCH (08:33)
[2021-03-28] MEDS: VANCOMYCIN HCL 125 MG/2.5ML SOLN PO SCH (08:36)
--- NOTE | 2021-03-28 10:05 | Hospitalist Progress Note ---
Date of Service March 28, 2021 Assessment & Plan (1) GI bleeding: Plan: Currently n.p.o. awaiting endoscopies. Received vitamin K yesterday to reverse INR Plan for EGD and colonoscopy today by GI. We will follow. Hemoglobin was 14.9 on presentation, currently at 13.3. Continue to monitor hemoglobin (2) CAD (coronary artery disease): (3) S/P CABG x 3: (4) Stroke: (5) PVD (peripheral vascular disease): (6) HTN (hypertension): (7) Atrial fibrillation: Plan: Remains hemodynamically stable. Continue metoprolol succinate and statin. Plavix on hold due to GI bleed and planned endoscopies. History of diastolic heart failure. Patient's Bumex is currently on hold in view of GI bleed. We will monitor for fluid overload. Warfarin on hold for now due to GI bleed. Patient will likely need anticoagulation once GI bleed is controlled considering risk for VTE. Patient received vitamin K on admission yesterday to reverse INR for endoscopies Currently hemodynamically stable (8) Chronic kidney disease, stage IV (severe): Plan: Creatinine is 3.0 Monitor Avoid nephrotoxins Plan: Patient has chronic recurrent C. difficile. On chronic home p.o. vancomycin. Continue this DVT prophylaxis-SCD Admission and Anticipated Discharge Date Admission Date: March 27, 2021 Subjective Patient seen and examined Denies any nausea, vomiting, abdominal pain. Reports bowel movements this AM was a bit bloody but clearing. Patient has been on bowel prep Denied any shortness of breath, cough Denies any palpitations, fatigue Denies dysuria, frequency, urgency Physical Exam Constitutional: + well hydrated; no acute distress Eyes: PERRL, conjunctivae normal, anicteric sclerae ENMT: external ear and nose normal, oropharynx normal Respiratory: normal respiratory effort, lungs clear to auscultation Cardiovascular: Rate/Rhythm: + irregularly irregular S1-S2 Gastrointestinal (Abdomen): normal bowel sounds, soft, nontender, no hepatosplenomegaly Neurologic: PERRL, EOMI, accommodation nl, no face palsy, no dysarthria Psychiatric: A+Ox3, euthymic affect Results & Data Results & Data ([facility]) Vital Signs (Past 12 Hours) Vital Signs Temp Pulse Resp BP Pulse Ox 03/28/21 06:54 36.7 C 74 19 106/57 L 93 03/28/21 03:33 36.6 C 64 18 136/71 97 03/27/21 23:04 36.8 C 95 H 18 134/81 90 Laboratory Results Abnormal lab results 03/27/21 03/28/21 03/28/21 Range/Units 23:08 05:22 05:22 RBC 4.07 L (4.7-6.1) M/uL Hgb 13.9 L 13.3 L (14.0-18.0) g/dL Hct 40.9 L 40.2 L (42-52) % RDW Std Deviation 49.7 H (36.4-46.3) fL Lymph # (Auto) 1.10 L (1.2-3.4) K/uL Cannon # (Auto) 0.92 H (0.11-0.59) K/uL PT 13.8 H (9.0-12.0) Seconds INR 1.4 H (0.9-1.1) Carbon Dioxide (21-32) mmol/L BUN (6-23) mg/dl Creatinine (0.6-1.4) mg/dl Glucose (70-99(Fasting)) mg/dl 03/28/21 Range/Units 05:22 RBC (4.7-6.1) M/uL Hgb (14.0-18.0) g/dL Hct (42-52) % RDW Std Deviation (36.4-46.3) fL Lymph # (Auto) (1.2-3.4) K/uL Cannon # (Auto) (0.11-0.59) K/uL PT (9.0-12.0) Seconds INR (0.9-1.1) Carbon Dioxide 34 H (21-32) mmol/L BUN 44 H (6-23) mg/dl Creatinine 3.02 H (0.6-1.4) mg/dl Glucose 100 H (70-99(Fasting)) mg/dl
[2021-03-28] MEDS: traZODone HCL 50 MG TAB PO SCH ×2 (10:09→20:43)
--- NOTE | 2021-03-28 10:13 | History & Physical Bridge Note ---
Date of Service March 28, 2021 History & Physical Bridge Note I have examined the patient, reviewed the History & Physical and in the interval since the performance of the History & Physical I have noted the following changes of clinical significance: no changes noted Continues to have Hematochezia. Plan: EGD/colonoscopy today. Patient was explained in detail regarding risks, benefits, limitations and alternatives of the above endoscopic procedure. Risks of intravenous sedation used for procedure were also explained. Risks include, but not limited to perforation, bleeding, infection, respiratory distress, cardiac arrest and . Patient is also aware about the possibility of missed lesion. Patient's questions were answered. The patient verbalized understanding the information and agreed to undergo the procedure.
[2021-03-28] MEDS ORDERED: Nursing to Pharmacy Communication SCH (10:15)
[2021-03-28] MEDS ORDERED: LIDOCAINE 2% 2 ML VIAL/AMP(20MG/ML) INFIL ONE (13:26)
[2021-03-28] MEDS ORDERED: PROPOFOL IV EMULSION 10 MG/ML 20 ML VIAL IV ONE (13:26)
[2021-03-28] MEDS ORDERED: KETAMINE 50 MG/5 ML SYRINGE ONE (13:27)
[2021-03-28] MEDS ORDERED: ePHEDrine sulfate 50 MG/ML AMP IV PRN (13:28)
[2021-03-28] MEDS ORDERED: ATROPINE SULFATE 0.1 MG/ML 10ML SYR IV PRN (13:28)
[2021-03-28] MEDS ORDERED: ONDANSETRON INJ 2 MG/ML 2 ML VIAL IV PRN (13:28)
[2021-03-28] MEDS ORDERED: ePHEDrine sulfate 50 MG/ML AMP ONE (14:16)
--- NOTE | 2021-03-28 14:18 | Operative Report ---
Post Operative Report Pre & Post Diagnosis Operation Date: 03/28/21 11:45 Pre-Op Diagnosis: Melena Post-Op Diagnosis: Melena I identified the patient and participated in the time-out.: Yes Procedure Operation Date: 03/28/21 11:45 Actual Procedures p Colonoscopy, Esophagogastroduodenoscopy(Not Applicable) - Nicky Ferrer MD Surgeon Nicky Ferrer MD Enamel Buffer None Estimated Blood Loss 0 Findings See Below (Normal EGD, multiple sigmoid diverticulosis with no active bleeding) Specimens None Description of Procedure EGD/colonoscopy I attest to the content of the Intraoperative Record and any orders documented therein. Any exceptions are noted below.
--- NOTE | 2021-03-28 14:29 | GI REPORT ---
Patient Name: Vida Mcmahan Procedure Date: 03/28/2021 1:35 PM Date of : 1940 Admit Type: Inpatient Age: 80 Gender: Male Attending MD: Nicky Ferrer MD Procedure: Upper GI endoscopy Providers: Nicky Ferrer MD Referring MD: Marie Bourne Md Indications: Hematochezia Medicines: Propofol per Anesthesia Complications: No immediate complications. Estimated Blood Loss: Estimated blood loss: none. Procedure: Pre-Anesthesia Assessment: - Prior to the procedure, a History and Physical was performed, and patient medications, allergies and sensitivities were reviewed. The patient's tolerance of previous anesthesia was reviewed. - The risks and benefits of the procedure and the sedation options and risks were discussed with the patient. All questions were answered and informed consent was obtained. - Patient identification and proposed procedure were verified prior to the procedure by the physician and the nurse. The procedure was verified in the procedure room. - Pre-procedure physical examination revealed no contraindications to sedation. After obtaining informed consent, the endoscope was passed under direct vision. Throughout the procedure, the patient's blood pressure, pulse, and oxygen saturations were monitored continuously.The upper GI endoscopy was accomplished without difficulty. The patient tolerated the procedure well. The Colonoscope was introduced through the mouth, and advanced to the. Findings: The examined esophagus was normal. A single medium submucosal papule (nodule) with no stigmata of recent bleeding was found in the prepyloric region of the stomach. There was a medium-sized lipoma in the second portion of the duodenum. Impression: - No evidence of UGIB. - Normal esophagus. - A single submucosal papule (nodule) found in the stomach. - Duodenal lipoma. - No specimens collected. Recommendation: - Perform a colonoscopy today. - Perform an upper endoscopic ultrasound (UEUS) at appointment to be scheduled as OP. Nicky Ferrer MD 03/28/2021 2:28:56 PM This report has been signed electronically. Note Initiated On: 03/28/2021 1:35 PM Number of Addenda: 0 I attest to the content of the Intraoperative Record and orders documented therein, exceptions below {[id number]}
--- NOTE | 2021-03-28 14:35 | GI REPORT ---
Patient Name: Vida Mcmahan Procedure Date: 03/28/2021 1:35 PM Date of : 1940 Admit Type: Inpatient Age: 80 Gender: Male Attending MD: Nicky Ferrer MD Procedure: Colonoscopy Providers: Nicky Ferrer MD Referring MD: Marie Bourne Md Indications: Hematochezia Medicines: Propofol per Anesthesia Complications: No immediate complications. Estimated Blood Loss: Estimated blood loss: none. Procedure: Pre-Anesthesia Assessment: - Prior to the procedure, a History and Physical was performed, and patient medications, allergies and sensitivities were reviewed. The patient's tolerance of previous anesthesia was reviewed. - The risks and benefits of the procedure and the sedation options and risks were discussed with the patient. All questions were answered and informed consent was obtained. - Patient identification and proposed procedure were verified prior to the procedure by the physician and the nurse. The procedure was verified in the procedure room. - Pre-procedure physical examination revealed no contraindications to sedation. After I obtained informed consent, the scope was passed under direct vision. Throughout the procedure, the patient's blood pressure, pulse, and oxygen saturations were monitored continuously.The colonoscopy was performed without difficulty. The patient tolerated the procedure well. The quality of the bowel preparation was good. The terminal ileum, ileocecal valve, appendiceal orifice, and rectum were photographed. The Colonoscope was introduced through the anus and advanced to. Findings: The perianal and digital rectal examinations were normal. The terminal ileum appeared normal. Many sessile polyps were found in the sigmoid colon, transverse colon and ascending colon. Polypectomy was not attempted due to work up for ongoing GI bleeding. Red blood clots were found in the sigmoid colon only. Scattered small and large-mouthed diverticula were found in the sigmoid colon. Despite careful lavage of the area, no active bleeding seen. The retroflexed view of the distal rectum and anal verge was normal and showed no anal or rectal abnormalities. Impression: - No evidence of active GI bleeding. Most likely source of recent bleed is sigmoid diverticulosis. - The examined portion of the ileum was normal. - Many polyps in the sigmoid colon, in the transverse colon and in the ascending colon. Resection not attempted. - Diverticulosis in the sigmoid colon. - The distal rectum and anal verge are normal on retroflexion view. - No specimens collected. Recommendation: - Return patient to [facility] for [facility] care. - Full liquid diet today. - Resume Coumadin (warfarin) at prior dose in 4 days. - Repeat colonoscopy in 3 months for polypectomy. Nicky Ferrer MD 03/28/2021 2:35:09 PM This report has been signed electronically. Note Initiated On: 03/28/2021 1:35 PM Number of Addenda: 0 I attest to the content of the Intraoperative Record and orders documented therein, exceptions below {[id number]}
--- NOTE | 2021-03-28 14:36 | Anesthesiology Progress Note ---
Date of Service March 28, 2021 Anesthesia Post Procedure Vital Signs Vital Signs: Temp Pulse Resp BP Pulse Ox 03/28/21 14:30 71 16 99/63 L 95 03/28/21 14:20 36 C L 70 18 102/53 L 100 03/28/21 12:21 36.7 C 76 17 101/62 96 03/28/21 06:54 36.7 C 74 19 106/57 L 93 03/28/21 03:33 36.6 C 64 18 136/71 97 03/27/21 23:04 36.8 C 95 H 18 134/81 90 03/27/21 19:05 36.3 C L 94 H 18 110/74 92 03/27/21 17:49 78 150/83 H 03/27/21 16:19 36.4 C L 75 18 180/94 H 93 Transfer of Care Handoff Completed per policy Notes Mental Status: alert / awake / arousable Patient Amnestic to Procedure: Yes Nausea / Vomiting: adequately controlled Pain: adequately controlled Airway Patency, RR, SpO2: stable & adequate BP & HR: stable & adequate Hydration State: stable & adequate Anesthetic Complications: no major complications apparent
[2021-03-28] MEDS: ROSUVASTATIN CALCIUM 10 MG TAB PO SCH (20:44)
[2021-03-29] MEDS: PANTOprazole 40 MG in DEXTROSE 5% 100 ML IV SCH ×2 (04:00→09:03)
[2021-03-29 07:25] LABS: Hematocrit (blood only) 39.1 % (42-52); Hemoglobin 12.8 g/dL (14.0-18.0); Mean Corpuscular Hemoglobin 32.2 pg (25-34); Mean Corpuscular Hgb Conc 32.7 g/dL (32-36); Mean Corpuscular Volume 98.2 fL (80-100); Mean Platelet Volume 9.4 fL (7.4-10.4); Platelet Count 157 K/uL (130-400); Red Blood Count 3.98 M/uL (4.7-6.1)
[2021-03-29 07:33] LABS: INR 1.1 (0.9-1.1); Prothrombin Time 11.4 Seconds (9.0-12.0)
[2021-03-29 07:52] LABS: BUN Creatinine Ratio 13.8 (10-20); Calcium 9.2 mg/dl (8.5-10.1); Creatinine Clr Calc Pharmacy 29.7 ml/min; Est GFR (African American) 26.7 ml/min; Potassium 3.7 mmol/L (3.5-5.1)
[2021-03-29] MEDS: RASPBERRY SYRUP 5 ML UDP PO SCH (07:54)
[2021-03-29] MEDS: METOPROLOL SUCC 25MG EXT REL TAB PO SCH ×2 (07:54→20:15)
[2021-03-29] MEDS: VANCOMYCIN HCL 125 MG/2.5ML SOLN PO SCH (07:54)
[2021-03-29] MEDS: CALCITRIOL 0.25 MCG CAPSULE PO SCH (07:55)
[2021-03-29] MEDS: LACTOBACILLUS ACIDOPHILUS 1 GM PACK PO SCH ×3 (07:56→20:14)
--- NOTE | 2021-03-29 09:13 | Gastroenterology Progress Note ---
Date of Service March 29, 2021 Assessment & Plan Admission and Anticipated Discharge Date Admission Date: March 27, 2021 Subjective Patient was seen and examined today, doing well, tolerated PO diet and no further hematochezia since yesterday. On exam abdomen is soft. Labs: H/H stable Recommend: Advance diet as tolerated. Recall GI if needed. Results & Data ([facility]) Vital Signs (Past 12 Hours) Vital Signs Temp Pulse Pulse Resp BP Pulse Ox 03/29/21 08:11 73 101/61 03/29/21 07:37 89 03/29/21 06:56 36.9 C 74 19 98/48 L 92 03/29/21 03:12 36.5 C 71 18 112/57 L 98 03/28/21 23:24 74 03/28/21 23:08 36.6 C 76 18 99/42 L 94
--- NOTE | 2021-03-29 10:54 | Hospitalist Progress Note ---
Date of Service March 29, 2021 Assessment & Plan (1) GI bleeding: Plan: Received vitamin K for INR reversal Hemoglobin was 14.9 on presentation, currently at 12.8. Acute blood loss anemia EGD showed normal esophagus, single submucosal papule in the stomach, duodenal lipoma and no evidence of upper GI bleed. Colonoscopy showed no evidence of active bleeding, mainly polyps in sigmoid colon transverse and ascending colon and diverticulosis in sigmoid colon. Most likely source of recent bleeding is sigmoid diverticulosis. GI evaluation and recommendations noted. Patient will need repeat colonoscopy in 3 months for polypectomy Also need outpatient follow-up with GI for possible upper endoscopic ultrasound. Advance diet for now and monitor Monitor hemoglobin. (2) CAD (coronary artery disease): (3) S/P CABG x 3: (4) Stroke: (5) PVD (peripheral vascular disease): (6) HTN (hypertension): (7) Atrial fibrillation: Plan: Remains hemodynamically stable. Continue metoprolol succinate and statin. Plavix on hold due to GI bleed for now History of diastolic heart failure. Patient's Bumex is currently on hold in view of GI bleed. We will monitor for fluid overload. Warfarin on hold for now due to GI bleed. Will resume 4 days post endoscopies per GI recs Currently hemodynamically stable (8) Chronic kidney disease, stage IV (severe): Plan: Creatinine is 2.53 Monitor Avoid nephrotoxins Plan: Patient has chronic recurrent C. difficile. On chronic home p.o. vancomycin. Continue this DVT prophylaxis-SCD Plan to dc tomorrow Admission and Anticipated Discharge Date Admission Date: March 27, 2021 Subjective Patient seen and examined Denies any nausea, vomiting, abdominal pain. No bloody BM since EGD/colonoscopy yesterday Denied any shortness of breath, cough Denies any palpitations, fatigue, dizziness Denies dysuria, frequency, urgency Physical Exam Constitutional: + well hydrated; no acute distress Eyes: PERRL, conjunctivae normal, anicteric sclerae ENMT: external ear and nose normal, oropharynx normal Respiratory: normal respiratory effort, lungs clear to auscultation Cardiovascular: Rate/Rhythm: + irregularly irregular S1 S2 Gastrointestinal (Abdomen): normal bowel sounds, soft, nontender, no hepatosplenomegaly Neurologic: PERRL, EOMI, accommodation nl, no face palsy, no dysarthria Psychiatric: A+Ox3, euthymic affect Results & Data Results & Data ([facility]) Vital Signs (Past 12 Hours) Vital Signs Temp Pulse Pulse Resp BP Pulse Ox 03/29/21 10:46 36.9 C 70 19 125/73 96 03/29/21 08:11 73 101/61 03/29/21 07:37 89 03/29/21 06:56 36.9 C 74 19 98/48 L 92 03/29/21 03:12 36.5 C 71 18 112/57 L 98 03/28/21 23:24 74 03/28/21 23:08 36.6 C 76 18 99/42 L 94 Laboratory Results Abnormal lab results 03/29/21 03/29/21 Range/Units 07:13 07:13 RBC 3.98 L (4.7-6.1) M/uL Hgb 12.8 L (14.0-18.0) g/dL Hct 39.1 L (42-52) % RDW Std Deviation 50.0 H (36.4-46.3) fL BUN 35 H (6-23) mg/dl Creatinine 2.53 H D (0.6-1.4) mg/dl
[2021-03-29] MEDS: traZODone HCL 50 MG TAB PO SCH (20:15)
[2021-03-29] MEDS: ROSUVASTATIN CALCIUM 10 MG TAB PO SCH (20:15)
[2021-03-30 06:00] LABS: Hematocrit (blood only) 37.7 % (42-52); Hemoglobin 12.6 g/dL (14.0-18.0); Mean Corpuscular Hemoglobin 33.2 pg (25-34); Mean Corpuscular Hgb Conc 33.4 g/dL (32-36); Mean Corpuscular Volume 99.5 fL (80-100); Mean Platelet Volume 9.3 fL (7.4-10.4); Platelet Count 164 K/uL (130-400); RDW Coefficient of Variation 14.1 % (11.5-14.5); RDW Standard Deviation 50.7 fL (36.4-46.3); Red Blood Count 3.79 M/uL (4.7-6.1); White Blood Count 5.77 K/uL (4.8-10.8)
[2021-03-30 06:14] LABS: INR 1.1 (0.9-1.1); Prothrombin Time 11.4 Seconds (9.0-12.0)
[2021-03-30 06:39] LABS: BUN Creatinine Ratio 14.2 (10-20); Calcium 9.3 mg/dl (8.5-10.1); Creatinine Clr Calc Pharmacy 28.1 ml/min; Est GFR (Non-African American) 21.6 ml/min
[2021-03-30] MEDS: LACTOBACILLUS ACIDOPHILUS 1 GM PACK PO SCH (08:06)
[2021-03-30] MEDS: CALCITRIOL 0.25 MCG CAPSULE PO SCH (08:06)
[2021-03-30] MEDS: RASPBERRY SYRUP 5 ML UDP PO SCH (08:06)
[2021-03-30] MEDS: METOPROLOL SUCC 25MG EXT REL TAB PO SCH ×2 (08:06→08:21)
[2021-03-30] MEDS: VANCOMYCIN HCL 125 MG/2.5ML SOLN PO SCH (08:10)
[2021-03-30 08:21] VITALS: PULSE 73
[2021-03-30] MEDS ORDERED: PANTOprazole 40 MG TAB PO SCH (09:00)
[2021-03-30 12:00] VITALS: BP 98/57; TEMP 98.1; O2SAT 94
--- NOTE | 2021-03-30 12:59 | Discharge Summary ---
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 The patient says he woke up at 3:00 a.m. in the morning and he has developed 4-5 episodes of melena, he had one episode in the ER. He is hemodynamically stable. No abdominal pain. No nausea, no vomiting. Denies any chest pain or shortness of breath, no headache, no blurred visions, no dizziness, no runny nose, no sore throat. No cough. Appetite is okay. Currently, resting comfortably and hemodynamically stable. The patient had a similar episode about 10 years ago and he was found to have gastric ulcer at that time. The patient is on Coumadin and Plavix. Denies any [id number] Aleve or ibuprofen. The patient is also on p.o. vancomycin once daily since last 2 years for recurrent C. diff. Admission Exam Per Admitting Provider GENERAL: The patient is of moderate build, not in acute distress. VITAL SIGNS: Temperature 36.5, pulse 75, respiratory rate 18, blood pressure 118/70, oxygen 91% on room air. HEENT: Pupils equal, round and reactive to light. Oral mucosa moist. NECK: No JVD, no neck masses. CARDIOVASCULAR: S1 and S2 heard. Regular rate and rhythm. No murmur, no gallop. RESPIRATORY SYSTEM: Normal AP diameter. No accessory muscle use. No wheezing, no crackles. ABDOMEN: Soft, bowel sounds present, nontender, no distention. CENTRAL NERVOUS SYSTEM: Cranial nerves II-XII grossly intact, nonfocal. EXTREMITIES: Bilateral lower extremity edema present, no erythema seen. Principal Diagnosis Gastrointestinal bleeding Discharge Exam Constitutional + well hydrated; no acute distress Eyes PERRL, conjunctivae normal, anicteric sclerae ENMT external ear and nose normal, oropharynx normal Hearing aides Respiratory normal respiratory effort, lungs clear to auscultation Cardiovascular Rate/Rhythm: + irregularly irregular S1 S2 Gastrointestinal (Abdomen) normal bowel sounds, soft, nontender, no hepatosplenomegaly Musculoskeletal no cyanosis or clubbing, extremities motor strength 5/5 Neurologic PERRL, EOMI, accommodation nl, no face palsy, no dysarthria Psychiatric A+Ox3, euthymic affect Discharge Data Allergies Allergy/AdvReac Type Severity Reaction Status Date / Time No Known Allergies Allergy Unknown Verified 09/03/19 11:18 Consultations 03/27/21 06:16 ED Decision to Admit Stat 03/27/21 10:44 Consult Gastroenterology Routine Procedures Performed Operation Date: 03/28/21 11:45 Actual Procedures p Colonoscopy, (Not Applicable) - Nicky Ferrer MD The perianal and digital rectal examinations were normal. The terminal ileum appeared normal. Many sessile polyps were found in the sigmoid colon, transverse colon and ascending colon. Polypectomy was not attempted due to work up for ongoing GI bleeding. Red blood clots were found in the sigmoid colon only. Scattered small and large-mouthed diverticula were found in the sigmoid colon. Despite careful lavage of the area, no active bleeding seen. The retroflexed view of the distal rectum and anal verge was normal and showed no anal or rectal abnormalities. Impression: - No evidence of active GI bleeding. Most likely source of recent bleed is sigmoid diverticulosis. - The examined portion of the ileum was normal. - Many polyps in the sigmoid colon, in the transverse colon and in the ascending colon. Resection not attempted. - Diverticulosis in the sigmoid colon. - The distal rectum and anal verge are normal on retroflexion view. - No specimens collected. s Esophagogastroduodenoscopy(Not Applicable) - Nicky Ferrer MD The examined esophagus was normal. A single medium submucosal papule (nodule) with no stigmata of recent bleeding was found in the prepyloric region of the stomach. There was a medium-sized lipoma in the second portion of the duodenum. Impression: - No evidence of UGIB. - Normal esophagus. - A single submucosal papule (nodule) found in the stomach. - Duodenal lipoma. - No specimens collected. Recommendation: - Perform a colonoscopy today. - Perform an upper endoscopic ultrasound (UEUS) at appointment to be scheduled as OP. Hospital Course (1) GI bleeding: Received vitamin K for INR reversal Hemoglobin was 14.9 on presentation, currently at 12.6 Acute blood loss anemia EGD showed normal esophagus, single submucosal papule in the stomach, duodenal lipoma and no evidence of upper GI bleed. Colonoscopy showed no evidence of active bleeding, mainly polyps in sigmoid colon transverse and ascending colon and diverticulosis in sigmoid colon. Most likely source of recent bleeding is sigmoid diverticulosis. Was evaluated by GI. Patient will need repeat colonoscopy in 3 months for polypectomy Also need outpatient follow-up with GI for possible upper endoscopic ultrasound. Patient to resume warfarin after 4 days (on tuesday) per GI recommendations (2) CAD (coronary artery disease): (3) S/P CABG x 3: (4) Stroke: (5) PVD (peripheral vascular disease): (6) HTN (hypertension): (7) Atrial fibrillation: Remains hemodynamically stable. Continue metoprolol succinate and statin. Plavix on hold due to GI bleed for now History of diastolic heart failure. Patient's Bumex is currently on hold in view of GI bleed. We will monitor for fluid overload. Warfarin on hold for now due to GI bleed. Will resume 4 days (on tuesday) post endoscopies per GI recs Currently hemodynamically stable (8) Chronic kidney disease, stage IV (severe): Creatinine is 2.67 Monitor Avoid nephrotoxins Patient has chronic recurrent C. difficile. On chronic home p.o. vancomycin. Continue this Called and updated her about plans Total Time Total Time Spent Total Time Spent (In Minutes): 45 Total Time Includes: Examination of the Patient, Discharge Planning and Medication Reconciliation Discharge Plan Discharge Items Patient Disposition: Home - Self-Care Reason For Visit: MELENA Discharge Diagnosis: Gastrointestinal bleeding Activity: Resume your previous activity Non-emergency contact: Primary Care Provider and [employer] Call non-emergency contact if: you have any medication questions and your symptoms worsen Follow-up/Referrals: Lamin Malcolm MD [Primary Care Provider] - (Date & Time 04/02/2021 9:40 AM Provider Lamin Malcolm MD Department [facility] ) Nicky Ferrer MD [Hospitalist] - 07/03/21 (You are scheduled for your colonoscopy/ EUS (endoscopic ultrasound) for 07/03/2021 at [facility]. You will be contacted 2 working days prior to your procedure with your arrival time. If you have not heard from a nurse regarding your procedure time, you may call [facility] at [phone].) Diet: Heart Healthy Addtl Attending Provider Instructions: Mr Mcmahan. You came to the hospital complaining of bloody bowel movements. Your warfarin was suspended and you received vitamin K. You had upper endoscopy and colonoscopy. Your colonoscopy did not show active bleeding but showed polyps and diverticulosis. Your bloody bowel movement resolved. You are being discharged home. You can resume your warfarin on 04/01/21 per previous dose and monitor for signs of bleeding. Please ensure follow up with Anticoagulation clinic for close monitoring of your INR and warfarin dosing. Please ensure follow up with Gastroenterology for continued management. It was a pleasure taking care of you. Pending Studies at Discharge: No Stand-Alone Forms: My [facility], Smoking Cessation Medications and DC Order Prescriptions: Continued vancomycin 125 mg capsule 125 mg PO DAILY Qty: 90 RF: 6 potassium chloride [Klor-Con M20] 20 mEq tablet,ER particles/crystals See Rx Instructions .ROUTE .COMPLEX Qty: 90 RF: 3 calcitriol 0.5 mcg capsule 0.5 mcg PO DAILY Qty: 90 RF: 3 metoprolol succinate 25 mg tablet extended release 24 hr 25 mg PO BID RF: 0 bumetanide 2 mg tablet 2 mg PO .COMPLEX Qty: 60 RF: 5 bumetanide 1 mg tablet 1 mg PO BID Qty: 60 RF: 2 clopidogrel 75 mg tablet 75 mg PO DAILY Qty: 30 RF: 2 warfarin [Coumadin] 2 mg tablet 2 mg PO DAILY Qty: 30 RF: 2 rosuvastatin [Crestor] 10 mg tablet 10 mg PO HS Qty: 30 RF: 5 Lactinex 1 million cell tablet,chewable 1 tab PO TID Qty: 360 RF: 0 multivitamin with minerals 1 tab PO RF: 0 omeprazole 20 mg capsule,delayed release(DR/EC) 20 mg PO DAILY Qty: 30 RF: 2 trazodone 50 mg tablet 50 mg PO DAILY Qty: 30 RF: 2 Discharge Orders: Discharge Order (Routine); Ordered 03/30/21 Ordered By: Marie Bourne Admission Data Admit Date/Time: 03/27/21 07:02 Attending Provider: Marie Bourne I. Admit Provider: Darren Watkins Primary Care Provider: Lamin Malcolm Other Providers: Darren Watkins ; Erin Tamez ; Yodit Oliveira ; Corine Lazcano ; Sisi Monae ; Tushar Davidson ; Bakari Perez ; Deja Perrin ; Raghu Pablo ; Jana Littlejohn ; Angelica Lomeli ; Marie Campo ; Scarlet Muller ; Nicky Ferrer Other Interventions: Discharge Summary Assessment (RN) Last Done: 03/30/21 13:25
== END 2021-03-30 14:36 | disposition home or self-care (01) ==
LOC: ED 05:33 → EDINP 07:02 → INTOOBSV 07:02 → 2S 10:23

== ENCOUNTER 2022-02-18 04:15 | Observation (INO) ==
[2022-02-18 05:06] LABS: Basophils # (auto) 0.02 K/uL (0-0.2); Basophils % (auto) 0.1 %; Eosinophils # (auto) 0.01 K/uL (0-0.50); Eosinophils % (auto) 0.1 %; Hematocrit (blood only) 36.2 % (40.1-51.0); Hemoglobin 11.8 g/dl (14.0-18.0); Immature Granulocytes # (auto) 0.07 K/uL (0.00-0.02); Immature Granulocytes % (auto) 0.5 %; Lymphocytes # (auto) 0.53 K/uL (1.2-3.4); Lymphocytes % (auto) 3.7 %; Mean Corpuscular Hemoglobin 30.3 pg (25.0-34.0); Mean Corpuscular Hgb Conc 32.6 g/dL (32.0-36.0); Mean Corpuscular Volume 92.8 fL (80.0-100.0); Monocytes # (auto) 1.48 K/uL (0.24-0.82); Monocytes % (auto) 10.2 %; Neutrophils # (auto) 12.36 K/uL (1.4-6.5); Neutrophils % (auto) 85.4 %; Platelet Count 265 K/uL (130-400); RDW Coefficient of Variation 14.3 % (11.5-14.5); RDW Standard Deviation 48.8 fL (36.4-46.3); White Blood Count 14.47 K/ul (4.8-10.8)
[2022-02-18 05:21] LABS: Albumin Globulin Ratio 0.9 (0.9-2); Albumin Level 3.3 gm/dl (3.4-5.0); BUN Creatinine Ratio 25.5 (10-20); Bilirubin,Total 0.4 mg/dl (0.2-1.0); Calcium 9.2 mg/dl (8.5-10.1); Creatinine Clr Calc Pharmacy 19.9 ml/min; Est GFR (African American) 19.6 ml/min; Est GFR (Non-African American) 16.9 ml/min; Globulin 3.7 gm/dl (2.5-4.0); Potassium 4.3 mmol/L (3.5-5.1)
[2022-02-18] MEDS ORDERED: cefTRIAXone SODIUM 2,000 MG/70 ML BAG IV STA (07:19)
[2022-02-18] MEDS ORDERED: metroNIDAZOLE 500 MG/100 ML BAG IV STA (07:19)
[2022-02-18] MEDS ORDERED: SODIUM CHLORIDE 0.9% 1000ML 1,000 ML IV ONE (07:21)
[2022-02-18 07:41] LABS: Appearance Urine Clear (Clear); Bacteria Urine Automated Negative (Negative); Bilirubin Urine Negative (Negative); Blood Urine 1+ (Negative); Color Urine Yellow; Epithelial Cell Urine Auto >30 /lpf (0-5); Glucose Urine UA Trace (Negative); Ketones Urine Negative (Negative); Leukocyte Esterase Urine Negative (Negative); Nitrite Urine Negative (Negative); Protein Urine 3+ (Negative); RBC Urine Automated 0-4 /hpf (0-4); Specific Gravity Urine 1.016 (1.000-1.030); Urobilinogen Urine Negative (Negative)
--- NOTE | 2022-02-18 08:30 | CT Scan Report ---
CERVICAL SPINE CT CT DOSE: 480.92 mGycm HISTORY: fall, trauma TECHNIQUE: Multiaxial CT images of the cervical spine were performed and reformatted in the sagittal and coronal plane without the use of contrast. A dose lowering technique was utilized adhering to th e principles of ALARA. COMPARISON: None. FINDINGS: No fractures. No subluxation. Prevertebral soft tissues and the C1-C2 interval are intact. No pneumothorax. Old infarct noted within the right cerebellar hemisphere and left occipital lobe. Mo derate to severe degenerative disc disease at C6-C7 and C7-T1. Mild disc space narrowing at C5-C6. IMPRESSION: No fractures within the cervical spine. ACT 112: Negative or not required by law. Electronically signed by: Ovi Vaz M.D. 02/18/2022 8:28 AM
--- NOTE | 2022-02-18 08:33 | CT Scan Report ---
CT head/brain wo con CLINICAL HISTORY: CHI Technique: Contiguous axial CT images of the head were acquired from the base of the skull to the dinesh marlene without intravenous contrast administration. Images were viewed in brain, subdural and bone [facility] . Automated dose lowering techniques and/or adjustment according to patient size were utilized for this exam. Comparison: Comparison is made to CT head 11/28/2018 Findings: Areas of decreased attenuation are present in the periventricular and subcortical white matter bilate rally consistent with small vessel ischemic disease. Generalized cerebral atrophy with commensurate e nlargement of the ventricles, sulci, and cisterns is also present. There is no acute intracranial hem orrhage or evidence of acute territorial infarction. No shift of the midline structures, mass effect, or extra-axial abnormalities are shown. Atherosclerotic calcifications are present in the intracran ial segments of the internal carotid arteries. Encephalomalacia in the left occipital lobe is new fro m prior exam. Bilateral maxillary sinus opacification is seen. Ethmoid sinus disease is seen. The orbits appear nor mal. There are no acute fractures of the calvaria or scalp swelling. Impression: No acute intracranial hemorrhage, skull fractures, or scalp swelling. Maxillary and ethmoid sinus opa cification may be related to recent trauma. ACT 112: Negative or not required by law. Electronically signed by: Av Sanon M.D. 02/18/2022 8:32 AM
[2022-02-18] MEDS: SODIUM CHLORIDE 0.9% 1000ML 1,000 ML IV SCH ×2 (08:40→13:16)
--- NOTE | 2022-02-18 08:45 | CT Scan Report ---
CT sinus wo con CLINICAL HISTORY: R epistaxis s/p nasal packing TECHNIQUE: Multidetector axial CT images through the sinuses were obtained. Coronal and sagittal refo rmations were also obtained. Automated dose lowering techniques and/or adjustment according to patien t size were utilized for this examination. CT DOSE: 699.51 mGycm Comparison: None available at the time of this dictation. FINDINGS: Near opacification of bilateral maxillary sinuses is seen. Multiple ethmoid air cells are opacified. There is mild soft tissue thickening in the frontal sinuses. The orbits appear normal. There are no acute fractures of the calvaria or scalp swelling. IMPRESSION: Opacification of the bilateral maxillary sinuses and numerous ethmoid air cells. Findings may be rela perry to epistaxis. No acute fracture is seen. ACT 112: Negative or not required by law. Electronically signed by: Av Sanon M.D. 02/18/2022 8:44 AM
--- NOTE | 2022-02-18 09:13 | XRay Report ---
XR chest 1V portable CLINICAL HISTORY: weakness TECHNIQUE: Single frontal radiograph of the chest was obtained. Comparison: None available at the time of this dictation. FINDINGS: No lines and tubes are seen. Cardiomegaly is noted. The lungs are clear. No evidence of pleural effus ion or pneumothorax. IMPRESSION: No acute chest disease. ACT 112: Negative or not required by law. Electronically signed by: Av Sanon M.D. 02/18/2022 9:11 AM
--- NOTE | 2022-02-18 10:14 | History & Physical Report ---
Date of Service February 18, 2022 Assessment & Plan (1) Fall: (2) Sinusitis, acute maxillary: (3) Anterior epistaxis: (4) Cerebrovascular disease: (5) Colitis due to Clostridioides difficile: (6) Chronic kidney disease, stage IV (severe): (7) PVD (peripheral vascular disease): (8) Atrial fibrillation: (9) Chronic diastolic (congestive) heart failure: (10) CAD (coronary artery disease): (11) HTN (hypertension): Plan This is an 81-year-old male with PMH of HFpEF, chronic atrial fibrillation on Coumadin, peripheral vascular disease, CKD 4, hypertension, history of CVA and other medical problems listed below who presents from home after a fall this morning. Fall In setting of infection, generalized weakness No head trauma or LOC Fall precautions PT/OT evaluation Recent epistaxis, acute sinusitis Nasal packing removed 02/17 and started on rocephin and flagyl given wbc 19, sinusitis sx Continued on rocephin, flagyl today (regimen selected with help from pharmacy due to pt's chronic c diff), follow blood cx from 02/17 Initially meeting sepsis criteria with soft BP, tachycardia and WBC of 14 (improved from yesterday) but BP and HR normalized with fluids - continue maintenance fluids while monitoring volume status closely due to HFpEF CAD S/p CABG. Continue metoprolol succinate, statin, plavix while still having intermittent epistaxis Chronic atrial fibrillation Rate controlled with metoprolol succinate, holding Coumadin since 02/12 due to elevated INR and acute epistaxis. INR 1.5 today. Resume Coumadin as able Hyperlipidemia Continue statin Peripheral vascular disease H/o bilateral carotid endarterectomy. Holding Plavix. Continue statin CKD IV Cr 3.25 today (baseline 3.5-4 per most recent nephro note). Follows with Dr. Rodrigues. Patient not interested in HD at any point Avoid nephrotoxic agents as able HFpEF Holding his Bumex for now given dehydrated appearance, infection and getting gentle fluids CXR without s/sx of volume overload. Continue to monitor for any volume overload Low sodium diet Chronic recurrent Clostridium difficile Continue his home PO vancomycin DVT Ppx: SCDs for now Code status: DNR/DNI per discussion with patient PCP: Gold Dispo: Admitted to [facility] Patient seen in collaboration with Dr. Guido. Please see addendum. History of Present Illness Chief Complaint: Fall at home, recent sinusitis Primary Care Provider: Lamin Malcolm MD This is an 81-year-old male with PMH of HFpEF, chronic atrial fibrillation on Coumadin, peripheral vascular disease, CKD 4, hypertension, history of CVA and other medical problems listed below who presents from home after a fall this morning. Patient has been seen in ER multiple times in the past few weeks, starting with epistaxis on 02/13. Received nasal packing and returned home. Refused antibiotics at that time due to history of C. difficile in the past. Unable to follow-up in ENT outpatient setting for removal of packing due to the holidays, so was seen in the ED again yesterday for unpacking and noted to have worsening weakness, poor appetite and leukocytosis concerning for infection. Imaging revealed evidence of sinusitis and patient was started on ceftriaxone and Flagyl. Returned home and got up around 130AM to use the restroom and after flushing, fell over onto toilet. Denies any loss of consciousness or head trauma but was unable to get up from the floor for 2 hours. Initially refused EMS but eventually convinced him and he was brought into ED for further evaluation. Continues to feel weak and tired. Denies any fever or chills. No lightheadedness, headache, chest pain, shortness of breath, nausea, vomiting, abdominal pain, dysuria, diarrhea or constipation. Continues to have intermittent trace amounts of blood when blowing his nose. Coumadin has been on hold since 02/12. Allergies Allergy/AdvReac Type Severity Reaction Status Date / Time No Known Allergies Allergy Unknown Verified 02/17/22 16:31 Home Medications Medication Instructions Recorded Confirmed Type bumetanide 1 mg tablet 1 mg PO BID #60 tabs 09/20/18 02/18/22 Rx rosuvastatin 10 mg tablet (Crestor) 10 mg PO HS #30 tabs 09/20/18 02/18/22 Rx metoprolol succinate 25 mg 25 mg PO BID 02/26/19 02/18/22 History tablet,extended release 24 hr clopidogrel 75 mg tablet 75 mg PO QAM 09/08/21 02/18/22 History omeprazole 20 mg capsule,delayed 20 mg PO QAM 09/08/21 02/18/22 History release trazodone 50 mg tablet 100 mg PO HS 09/08/21 02/18/22 History vancomycin 125 mg capsule 125 mg PO QAM 09/08/21 02/18/22 History warfarin 2 mg tablet See Rx Instructions .Route .COMPLEX 09/08/21 02/18/22 History multivitamin 1 tab PO DAILY 02/13/22 02/18/22 History potassium chloride 20 mEq 20 meq PO DAILY 02/13/22 02/18/22 History tablet,extended release(part/cryst) (Klor-Con M) Lactobacillus acidoph-L.bulgaricus 1 tab PO TIDM 02/17/22 02/18/22 History 1 million cell tablet bumetanide 2 mg tablet 2 mg PO .COMPLEX PRN WT GAIN >3LBS. 02/17/22 02/18/22 History Past Med/Surg History Medical History Atrial fibrillation Follows Dr. Norman Wetzel CAD (coronary artery disease) s/p CABG x3 (2003) Carotid artery disease left (2007) right (2010) Chronic diastolic (congestive) heart failure Chronic kidney disease, stage IV (severe) Follows with [facility] nephro (Dr. Rodrigues) Diverticular disease GERD (gastroesophageal reflux disease) HTN (hypertension) Hyperlipidemia PVD (peripheral vascular disease) 2000 - right femoral endarterectomy, left femoral stent 2016 - left common femoral endarterectomy, left common deep femoral endarterectomy, left common and external iliac stent and angioplasty, left femoral and popliteal stent and angioplasty Recurrent Clostridioides difficile infection Reason for chronic vanco therapy Stroke 2017 treated with tPA - no residual effects Surgical History H/O vascular surgery 2000 - right femoral endarterectomy, left femoral stent 2016 - left common femoral endarterectomy, left common deep femoral endarterectomy, left common and external iliac stent and angioplasty, left femoral and popliteal stent and angioplasty History of CEA (carotid endarterectomy) left (2007) right (2010) History of colonoscopy History of esophagogastroduodenoscopy (EGD) S/P CABG x 3 Family History Other AAA (abdominal aortic aneurysm) Social History Smoking Status: Former smoker Tobacco Type: Cigarettes packs per day: 1.5; Second Hand Exposure: No; Hx Alcohol Use: Yes Alcohol type: wine Alcohol Intake Frequency: 4 or More x per/Week Alcohol Intake Frequency Comment: 1 drink with dinner Hx Substance Use: No Preferred Language: Amharic Communication Ability: Effective Wearing Apparel Folder Required: No Beliefs That Will Affect Care: None Current Living Situation: Spouse Feels Safe at Home: Yes Assistive Devices: Cane, Glasses and Walker Review of Systems Review of Systems: At least ten systems reviewed and negative except as noted in the HPI. Physical Exam Physical Exam: General Appearance: WD/WN, vitals as above, NAD, sitting up in bed, conversing easily, appears ill Head: normocephalic, atraumatic Eyes: normal inspection, PERRL, conjunctivae normal, anicteric sclerae ENT: hard of hearing, external ear normal, nose with some dried blood but not actively bleeding, oropharynx dry Neck: normal visual inspection, trachea midline, no thyromegaly Respiratory: normal respiratory effort, lungs clear to auscultation, no wheeze, rales, rhonchi. No accessory muscle use Cardiovascular: regular rate, rhythm, no murmur, normal peripheral pulses, no BLE edema. Vessels: no JVD Chest: normal inspection of chest Abdomen/GI: normal bowel sounds, soft, nontender, no hepatosplenomegaly Extremities/Musculoskeletal: no cyanosis or clubbing, extremities motor strength 5/5 Neurologic: PERRL, EOMI, accommodation nl, no face palsy, no dysarthria, CN's II-XI intact bilaterally and moves all extremities Psychiatric: A+Ox3, euthymic affect Skin: no rashes, normal color, warm/dry Results & Data Results & Data ([facility]) Vital Signs (Past 12 Hours) Vital Signs Temp Pulse Pulse Resp BP BP Pulse Ox 02/18/22 09:00 76 18 94/71 L 95 02/18/22 07:00 85 18 93/55 L 98 02/18/22 04:49 75 18 92 02/18/22 04:28 36.7 C 77 18 111/46 L 98 O2 Del Method 02/18/22 09:00 Room Air 02/18/22 07:00 Room Air 02/18/22 04:49 Room Air 02/18/22 04:28 Room Air Laboratory Results Short CBC 02/18/22 Range/Units 04:25 WBC 14.47 H (4.8-10.8) K/ul Hgb 11.8 L (14.0-18.0) g/dl Hct 36.2 L (40.1-51.0) % Plt Count 265 (130-400) K/uL BMP 02/18/22 04:25 Sodium 138 Potassium 4.3 Chloride 105 Carbon Dioxide 26 BUN 83 H Creatinine 3.25 H D Glucose 132 H Calcium 9.2 Liver Function 02/18/22 Range/Units 04:25 Total Bilirubin 0.4 (0.2-1.0) mg/dl AST 17 (13-39) U/L ALT 13 (7-52) U/L Alkaline Phosphatase 104 (34-104) U/L Albumin 3.3 L (3.4-5.0) gm/dl Urine 02/18/22 Range/Units Unknown Urine Color Yellow Urine Appearance Clear (Clear) Urine pH 6.0 (4.5-7.5) Ur Specific [place] 1.016 (1.000-1.030) Urine Protein 3+ H (Negative) Urine Glucose (UA) Trace H (Negative) Diagnostic Findings Chest X-Ray 02/18/22 04:48 XR chest 1V portable CLINICAL HISTORY: weakness TECHNIQUE: Single frontal radiograph of the chest was obtained. Comparison: None available at the time of this dictation. FINDINGS: No lines and tubes are seen. Cardiomegaly is noted. The lungs are clear. No evidence of pleural effusion or pneumothorax. IMPRESSION: No acute chest disease. ACT 112: Negative or not required by law. Electronically signed by: Av Sanon M.D. 02/18/2022 9:[address] 02/18/22 07:[address] DOSE: 480.92 mGycm HISTORY: fall, trauma TECHNIQUE: Multiaxial CT images of the cervical spine were performed and reformatted in the sagittal and coronal plane without the use of contrast. A dose lowering technique was utilized adhering to the principles of ALARA. COMPARISON: None. FINDINGS: No fractures. No subluxation. Prevertebral soft tissues and the C1-C2 interval are intact. No pneumothorax. Old infarct noted within the right cerebellar hemisphere and left occipital lobe. Moderate to severe degenerative disc disease at C6-C7 and C7-T1. Mild disc space narrowing at C5-C6. IMPRESSION: No fractures within the cervical spine. ACT 112: Negative or not required by law. Electronically signed by: Ovi Vaz M.D. 02/18/2022 8:[address] 02/18/22 07:19 CT head/brain wo con CLINICAL HISTORY: CHI Technique: Contiguous axial CT images of the head were acquired from the base of the skull to the vertex without intravenous contrast administration. Images were viewed in brain, subdural and bone windows. Automated dose lowering techniques and/or adjustment according to patient size were utilized for this exam. Comparison: Comparison is made to CT head 11/28/2018 Findings: Areas of decreased attenuation are present in the periventricular and subcortical white matter bilaterally consistent with small vessel ischemic disease. Generalized cerebral atrophy with commensurate enlargement of the ventricles, sulci, and cisterns is also present. There is no acute intracranial hemorrhage or evidence of acute territorial infarction. No shift of the midline structures, mass effect, or extra-axial abnormalities are shown. Atherosclerotic calcifications are present in the intracranial segments of the internal carotid arteries. Encephalomalacia in the left occipital lobe is new from prior exam. Bilateral maxillary sinus opacification is seen. Ethmoid sinus disease is seen. The orbits appear normal. There are no acute fractures of the calvaria or scalp swelling. Impression: No acute intracranial hemorrhage, skull fractures, or scalp swelling. Maxillary and ethmoid sinus opacification may be related to recent trauma. ACT 112: Negative or not required by law. Electronically signed by: Av Sanon M.D. 02/18/2022 8:[address] 02/18/22 07:19 CT sinus wo con CLINICAL HISTORY: R epistaxis s/p nasal packing TECHNIQUE: Multidetector axial CT images through the sinuses were obtained. Coronal and sagittal reformations were also obtained. Automated dose lowering techniques and/or adjustment according to patient size were utilized for this examination. CT DOSE: 699.51 mGycm Comparison: None available at the time of this dictation. FINDINGS: Near opacification of bilateral maxillary sinuses is seen. Multiple ethmoid air cells are opacified. There is mild soft tissue thickening in the frontal sinuses. The orbits appear normal. There are no acute fractures of the calvaria or scalp swelling. IMPRESSION: Opacification of the bilateral maxillary sinuses and numerous ethmoid air cells. Findings may be related to epistaxis. No acute fracture is seen. ACT 112: Negative or not required by law. Electronically signed by: Av Sanon M.D. 02/18/2022 8:44 AM Code Status & VTE Plan VTE Prophylaxis Plan VTE Prophylaxis will be ordered: Yes Supervising Physician Co-Signing Physician Notes delayed entry date of service noted above Attending Addendum: care coordinated with KORI Regan please refer to her notes for full details, I agree with her notes patient seen and examined, records reviewed by myself as well on exam, patient seen resting in bed, comfortable sleeping but easily awakened feels tired, has some R facial pain, nasal congestion no other symptoms VS noted and reviewed oriented x3 , not in distress, speaks in sentences with no effort nor accessory muscle use mild R maxillary area edema/erythema normal rate, regular rhythm, no murmurs clear breath sounds bilaterally non distended, soft, nontender no bipedal edema, erythema, warmth no neuro deficits labs: all noted and reviewed including below ASSESSMENT AND PLAN diagnoses and plan of care as per KORI Regan's notes Frank Guido MD
[2022-02-18 10:53] LABS: INR 1.5 (0.9-1.1); Prothrombin Time 15.2 Seconds (9.0-12.0)
[2022-02-18] MEDS ORDERED: SODIUM CHLORIDE 0.9% 1000ML 1,000 ML IV STA (12:55)
[2022-02-18] MEDS ORDERED: POLYETHYLENE (MIRALAX) 17 GM PACK PO PRN (14:41)
[2022-02-18] MEDS ORDERED: ONDANSETRON INJ 2 MG/ML 2 ML VIAL IV PRN (14:41)
[2022-02-18] MEDS: metroNIDAZOLE 500 MG/100 ML BAG IV SCH ×2 (16:26→23:56)
[2022-02-18] MEDS: ACETAMINOPHEN 325 MG TAB PO PRN (19:32)
[2022-02-18] MEDS: ROSUVASTATIN CALCIUM 10 MG TAB PO SCH (21:26)
[2022-02-18] MEDS: traZODone HCL 100 MG TAB PO SCH (21:26)
[2022-02-18] MEDS: METOPROLOL SUCC 25MG EXT REL TAB PO SCH (21:26)
[2022-02-19 08:27] LABS: Hematocrit (blood only) 32.4 % (40.1-51.0); Hemoglobin 10.4 g/dl (14.0-18.0); Mean Corpuscular Hemoglobin 30.1 pg (25.0-34.0); Mean Corpuscular Hgb Conc 32.1 g/dL (32.0-36.0); Mean Corpuscular Volume 93.9 fL (80.0-100.0); Mean Platelet Volume 8.9 fL (9.4-12.4); Platelet Count 260 K/uL (130-400); RDW Coefficient of Variation 14.5 % (11.5-14.5); RDW Standard Deviation 49.5 fL (36.4-46.3); Red Blood Count 3.45 M/uL (4.63-6.08)
[2022-02-19] MEDS: METOPROLOL SUCC 25MG EXT REL TAB PO SCH ×2 (08:34→21:32)
[2022-02-19] MEDS: ADVANCED PROBIOTIC 1250 MG CAPSULE PO SCH (08:34)
[2022-02-19] MEDS: POTASSIUM CHLORIDE CRTAB 20 MEQ TABCR PO SCH (08:34)
[2022-02-19] MEDS: MULTIVITAMIN TAB PO SCH (08:35)
[2022-02-19] MEDS: RASPBERRY SYRUP 5 ML UDP PO SCH (08:35)
[2022-02-19] MEDS: PANTOprazole 40 MG TAB PO SCH (08:35)
[2022-02-19] MEDS: VANCOMYCIN HCL 125 MG/2.5ML SOLN PO SCH (08:39)
[2022-02-19 08:41] LABS: INR 1.4 (0.9-1.1); Prothrombin Time 14.8 Seconds (9.0-12.0)
[2022-02-19] MEDS ORDERED: cefTRIAXone SODIUM 2,000 MG in DEXTROSE 5% 50 ML IV SCH (09:00)
[2022-02-19 09:04] LABS: BUN Creatinine Ratio 25.8 (10-20); Calcium 8.7 mg/dl (8.5-10.1); Creatinine Clr Calc Pharmacy 24.1 ml/min; Est GFR (African American) 23.2 ml/min; Potassium 4.3 mmol/L (3.5-5.1)
[2022-02-19] MEDS: AMPICILLIN/SULBACTAM SOD 3,000 MG in 0.9 % SODIUM CHLORIDE 100 ML IV SCH ×2 (09:26→21:31)
--- NOTE | 2022-02-19 10:59 | ENT Consultation ---
Date of Consultation February 19, 2022 Assessment & Plan (1) Sinusitis, acute maxillary: Sinusitis is improving. Afebrile. No headaches. Continue antibiotics followed by p.o. antibiotics as outpatient. (2) Anterior epistaxis: Dried blood in the right nares. No sign of bleeding at this time. Should be able to resume Coumadin if no further evidence of bleeding in 72 hours. History of Present Illness Reason for Consultation: Epistaxis and acute sinusitis Attending Physician: Frank Guido MD History of Present Illness 81-year-old gentleman with acute epistaxis due to Coumadin right side. Required packing. Developed symptoms of sepsis and admitted for treatment. CT documented air-fluid levels both maxillary sinuses with opacification of the ethmoids also consistent with blood and/or infection. Allergies Allergy/AdvReac Type Severity Reaction Status Date / Time No Known Allergies Allergy Unknown Verified 02/17/22 16:31 Home Medications Medication Instructions Recorded Confirmed Type bumetanide 1 mg tablet 1 mg PO BID #60 tabs 09/20/18 02/18/22 Rx rosuvastatin 10 mg tablet (Crestor) 10 mg PO HS #30 tabs 09/20/18 02/18/22 Rx metoprolol succinate 25 mg 25 mg PO BID 02/26/19 02/18/22 History tablet,extended release 24 hr clopidogrel 75 mg tablet 75 mg PO QAM 09/08/21 02/18/22 History omeprazole 20 mg capsule,delayed 20 mg PO QAM 09/08/21 02/18/22 History release trazodone 50 mg tablet 100 mg PO HS 09/08/21 02/18/22 History vancomycin 125 mg capsule 125 mg PO QAM 09/08/21 02/18/22 History warfarin 2 mg tablet See Rx Instructions .Route .COMPLEX 09/08/21 02/18/22 History multivitamin 1 tab PO DAILY 02/13/22 02/18/22 History potassium chloride 20 mEq 20 meq PO DAILY 02/13/22 02/18/22 History tablet,extended release(part/cryst) (Klor-Con M) Lactobacillus acidoph-L.bulgaricus 1 tab PO TIDM 02/17/22 02/18/22 History 1 million cell tablet bumetanide 2 mg tablet 2 mg PO .COMPLEX PRN WT GAIN >3LBS. 02/17/22 02/18/22 History cephalexin 500 mg capsule 500 mg PO QID 10 days #40 caps 02/17/22 02/18/22 Rx metronidazole 500 mg tablet 500 mg PO TID #30 tabs 02/17/22 02/18/22 Rx Patient History Medical History Atrial fibrillation Follows Dr. Norman Wetzel CAD (coronary artery disease) s/p CABG x3 (2003) Carotid artery disease left (2007) right (2010) Chronic diastolic (congestive) heart failure Chronic kidney disease, stage IV (severe) Follows with [facility] nephro (Dr. Rodrigues) Diverticular disease GERD (gastroesophageal reflux disease) HTN (hypertension) Hyperlipidemia PVD (peripheral vascular disease) 2000 - right femoral endarterectomy, left femoral stent 2016 - left common femoral endarterectomy, left common deep femoral endarterectomy, left common and external iliac stent and angioplasty, left femoral and popliteal stent and angioplasty Recurrent Clostridioides difficile infection Reason for chronic vanco therapy Stroke 2017 treated with tPA - no residual effects Surgical History H/O vascular surgery 2000 - right femoral endarterectomy, left femoral stent 2016 - left common femoral endarterectomy, left common deep femoral endarterectomy, left common and external iliac stent and angioplasty, left femoral and popliteal stent and angioplasty History of CEA (carotid endarterectomy) left (2007) right (2010) History of colonoscopy History of esophagogastroduodenoscopy (EGD) S/P CABG x 3 Family History Other AAA (abdominal aortic aneurysm) Social History Smoking Status: Former smoker Tobacco Type: Cigarettes packs per day: 1.5; Smoking End Date: h/o 89 pack years, quit in 2015; Second Hand Exposure: No; Hx Alcohol Use: Yes Alcohol type: wine Alcohol Intake Frequency: 4 or More x per/Week Alcohol Intake Frequency Comment: 1 drink with dinner Hx Substance Use: No Preferred Language: Swazi Communication Ability: Effective Grocery Store Associate Required: No Beliefs That Will Affect Care: None Current Living Situation: Spouse Other Information That Helps Us Care for You: No Feels Safe at Home: Yes Safety Concerns: Feels Safe At This Time Assistive Devices: Glasses and Hearing Aid - Bilateral Physical Exam Constitutional: WD/WN, vitals as above Eyes: PERRL, conjunctivae normal, anicteric sclerae ENMT: external ear and nose normal, oropharynx normal Neck: trachea midline, no thyromegaly Respiratory: normal respiratory effort, lungs clear to auscultation Results & Data ([facility]) Vital Signs (Past 12 Hours) Vital Signs Temp Pulse Pulse Resp BP Pulse Ox O2 Del Method 02/19/22 09:32 Room Air 02/19/22 07:52 36.8 C 56 L 20 134/68 97 Room Air 02/19/22 07:00 80 02/19/22 02:51 36.3 C L 81 18 144/72 H 98 Room Air 02/19/22 02:39 79
--- NOTE | 2022-02-19 16:56 | Hospitalist Progress Note ---
Date of Service February 19, 2022 Assessment & Plan (1) Fall: (2) Sinusitis, acute maxillary: (3) Anterior epistaxis: (4) Cerebrovascular disease: (5) Colitis due to Clostridioides difficile: (6) Chronic kidney disease, stage IV (severe): (7) PVD (peripheral vascular disease): (8) Atrial fibrillation: (9) Chronic diastolic (congestive) heart failure: (10) CAD (coronary artery disease): (11) HTN (hypertension): Plan Per admitting notes with addendum: This is an 81-year-old male with PMH of HFpEF, chronic atrial fibrillation on Coumadin, peripheral vascular disease, CKD 4, hypertension, history of CVA and other medical problems listed below who presents from home after a fall this morning. Fall In setting of infection, generalized weakness No head trauma or LOC Fall precautions PT/OT evaluation 02/19 Blood pressure improving Continue gentle IV fluids PT and OT evaluation Recent epistaxis, acute sinusitis Nasal packing removed 02/17 and started on rocephin and flagyl given wbc 19, sinusitis sx Continued on rocephin, flagyl today (regimen selected with help from pharmacy due to pt's chronic c diff), follow blood cx from 02/17 Initially meeting sepsis criteria with soft BP, tachycardia and WBC of 14 (improved from yesterday) but BP and HR normalized with fluids - continue maintenance fluids while monitoring volume status closely due to HFpEF 02/19 No recurrence of epistaxis Clinically improving Afebrile Blood cultures: Pending Continue IV Unasyn ENT consulted CAD S/p CABG. Continue metoprolol succinate, statin, hold plavix to prevent epistaxis Chronic atrial fibrillation Rate controlled with metoprolol succinate, holding Coumadin since 02/12 due to elevated INR and acute epistaxis. INR 1.5 Coumadin on hold Hyperlipidemia Continue statin Peripheral vascular disease H/o bilateral carotid endarterectomy. Holding Plavix. Continue statin CKD IV Cr 3.25 today (baseline 3.5-4 per most recent nephro note). Follows with Dr. Rodrigues. Patient not interested in HD at any point Avoid nephrotoxic agents as able Creatinine at baseline HFpEF Holding his Bumex for now given dehydrated appearance, infection and getting gentle fluids CXR without s/sx of volume overload. Continue to monitor for any volume overload Low sodium diet Patient appears on the dry side Continue gentle IV fluids 500 cc Chronic recurrent Clostridium difficile Continue his home PO vancomycin DVT Ppx: SCDs for now Code status: DNR/DNI per discussion with patient PCP: Gold Dispo: Lives at home with his PT and OT evaluation pending Admission and Anticipated Discharge Date Admission Date: February 18, 2022 Subjective ff up for sinusitis, fall, etc seen resting in bed, sleeping but easily awakened states he feels better today compared to yesterday still tired but feels stronger appetite is also returning no facial pain, nose bleeding, dysphagia no other symptoms Review of Systems Review of Systems: all noted and negative except for above Physical Exam Physical Exam: General- oriented x 3, not in distress, speaks in sentences with no effort or accessory muscle use Face- very mild edema R lower face, minimal erythema no tenderness Nose-no active bleeding, clots noted Eyes- anicteric Neck- no JVD Lungs- clear BS bilaterally, no rales/wheezes Heart- normal rate, regular rhythm; no murmurs Abdomen- normal bowel sounds, nondistended, soft, nontender Extremities- no pretibial edema, no calf tenderness Neuro- alert, oriented x 3; no gross focal neurologic deficits Skin- warm & dry Results & Data Results & Data ([facility]) Vital Signs (Past 12 Hours) Vital Signs Temp Pulse Pulse Resp BP Pulse Ox O2 Del Method 02/19/22 16:00 76 02/19/22 14:52 37.2 C 84 16 106/61 92 Room Air 02/19/22 11:55 36.7 C 84 18 142/70 H 98 Room Air 02/19/22 09:32 Room Air 02/19/22 07:52 36.8 C 56 L 20 134/68 97 Room Air 02/19/22 07:00 80 all noted and reviewed including below
[2022-02-19] MEDS ORDERED: SODIUM CHLORIDE 0.9% 500 ML IV SCH (17:00)
--- NOTE | 2022-02-19 19:17 | Emergency Department Note ---
Impression & Plan Acute infection of sinus, Fall, Weakness generalized, Acute prerenal failure ED Provider Note CHIEF COMPLAINT: Fall HISTORY OF PRESENT ILLNESS: This 81-year-old male patient presents to the em ergency department with complaints of a fall prior to arrival. The patient was seen in the emergency department last evening by myself and had nasal packing removed. Patient had developed sinusitis and purulent drainage around the nasal packing with a facial erythema/cellulitis. He did have an elevated WBC but was afebrile and after IV hydration, IV antibiotics, he felt well enough for discharge. Upon return home, the patient's states he was able to eat, he sat up and read the paper. In the middle the night he got up to go to the bathroom but she felt that his gait was unsteady. She did watch him closely. He did have a bowel movement, got up to flush the toilet, lost his balance and fell backwards. He did not hit his head and seem to be able to brace his fall but was unable to get up off the floor for 2 hours. The patient refused to let his called the ambulance until early this morning. confirms he did not lose consciousness and did not hit his head. He has not been taking his warfarin since the nosebleed. The patient was previously medicated with IV ceftriaxone and Flagyl secondary to missed reactions with amoxicillin in the past. The anaerobic coverage with Flagyl was felt to be necessary secondary to the nasal packing. REVIEW OF SYSTEMS: A review of systems was performed with positives and pertinent negatives listed in the history of present illness. 10 systems were reviewed and are otherwise negative. ALLERGIES: see below MEDICATIONS: see below PMH: see below SOCIAL HISTORY: see below DDx: Infection, dehydration, metabolic abnormality, hypo/hyperglycemia, electrolyte disturbance, anemia, hypoxia, cardiac sources, intracerebral event, toxicologic, neurologic, as well as other pathologies. PHYSICAL EXAM: Vital signs reviewed. General: Somewhat ill-appearing 81-year-old male, in no significant distress. HEENT: No scleral icterus, PERRLA, neck supple. Dry mucous membranes. Resolving right-sided facial cellulitis, diminished swelling. Dried blood around the right nares without purulent drainage Cardiovascular: Irregular and rate controlled. Pulmonary: Clear to auscultation bilaterally, normal work of breathing. Abdomen: Soft, nontender, nondistended, positive bowel sounds. Musculoskeletal: Atraumatic, no peripheral edema. Nontender to palpation over the cervical, thoracic and lumbar spine. Moves all extremities equally. No pain to palpation over the pelvis Neurologic: Patient awake alert and oriented x 3, speech is clear Skin: Warm, dry, no rash EMERGENCY DEPARTMENT COURSE/MDM: This patient was evaluated and appeared to be in no distress. The patient states he just felt woozy. He did take a dose of a ntibiotics prior to bed. His states he has not been eating and drinking well for the last several days. CT imaging was performed of the head and neck and reveals no evidence of acute traumatic findings. There is an air-fluid level in the sinuses bilaterally that is read as likely secondary to epistaxis. Patient was given a second dose of IV ceftriaxone and Flagyl. He was hydrated with normal saline solution due to elevated BUN and creatinine from day previous. Case was discussed with the hospitalist service will evaluate the patient for admission and further management. MONITORING: An order for cardiac monitoring was placed and the patient is noted to be in a atrial fibrillation at 80 beats per minute. RADIOLOGY: see below DISPOSITION: Home Past Med/Surg History Medical History Atrial fibrillation Follows Dr. Norman Wetzel CAD (coronary artery disease) s/p CABG x3 (2003) Carotid artery disease left (2007) right (2010) Chronic diastolic (congestive) heart failure Chronic kidney disease, stage IV (severe) [place]s [place] [facility] (Dr. Rodrigues) Diverticular disease GERD (gastroesophageal reflux disease) HTN (hypertension) Hyperlipidemia PVD (peripheral vascular disease) 2000 - right femoral endarterectomy, left femoral stent 2016 - left common femoral endarterectomy, left common deep femoral endarterectomy, left common and external iliac stent and angioplasty, left femoral and popliteal stent and angioplasty Recurrent Clostridioides difficile infection Reason for chronic vanco therapy Stroke 2017 treated with tPA - no residual effects Surgical History H/O vascular surgery 2000 - right femoral endarterectomy, left femoral stent 2015 - left common femoral endarterectomy, left common deep femoral endarterectomy, left common and external iliac stent and angioplasty, left femoral and popliteal stent and angioplasty History of CEA (carotid endarterectomy) left (2007) right (2010) History of colonoscopy History of esophagogastroduodenoscopy (EGD) S/P CABG x 3 Family History Other AAA (abdominal aortic aneurysm) Social History Smoking Status: Former smoker Tobacco Type: Cigarettes packs per day: 1.5; Smoking End Date: h/o 89 pack years, quit in 2015; Second Hand Exposure: No; Hx Alcohol Use: Yes Alcohol type: wine Alcohol Intake Frequency: 4 or More x per/Week Alcohol Intake Frequency Comment: 1 drink with dinner Hx Substance Use: No Preferred Language: Nepali Communication Ability: Effective Manager Hotel Required: No Beliefs That Will Affect Care: None Current Living Situation: Spouse Other Information That Helps Us Care for You: No Feels Safe at Home: Yes Safety Concerns: Feels Safe At This Time Assistive Devices: Cane, Glasses and Walker Allergies Allergies Allergy/AdvReac Type Severity Reaction Status Date / Time No Known Allergies Allergy Unknown Verified 02/17/22 16:31 Home Meds Home Medications Medication Instructions Recorded Confirmed metoprolol succinate 25 mg 25 mg PO BID 02/26/19 02/18/22 tablet,extended release 24 hr clopidogrel 75 mg tablet 75 mg PO QAM 09/08/21 02/18/22 omeprazole 20 mg capsule,delayed 20 mg PO QAM 09/08/21 02/18/22 release trazodone 50 mg tablet 100 mg PO HS 09/08/21 02/18/22 vancomycin 125 mg capsule 125 mg PO QAM 09/08/21 02/18/22 warfarin 2 mg tablet See Rx Instructions .Route .COMPLEX 09/08/21 02/18/22 multivitamin 1 tab PO DAILY 02/13/22 02/18/22 potassium chloride 20 mEq 20 meq PO DAILY 02/13/22 02/18/22 tablet,extended release(part/cryst) (Klor-Con M) Lactobacillus acidoph-L.bulgaricus 1 tab PO TIDM 02/17/22 02/18/22 1 million cell tablet bumetanide 2 mg tablet 2 mg PO .COMPLEX PRN WT GAIN >3LBS. 02/17/22 02/18/22 Previous Rx's Medication Instructions Recorded bumetanide 1 mg tablet 1 mg PO BID #60 tabs 09/20/18 rosuvastatin 10 mg tablet (Crestor) 10 mg PO HS #30 tabs 09/20/18 cephalexin 500 mg capsule 500 mg PO QID 10 days #40 caps 02/17/22 metronidazole 500 mg tablet 500 mg PO TID #30 tabs 02/17/22 Results & Data (ED) Home Medications Current Medication List: was personally reviewed by me Laboratory Data Attestation: I reviewed the patient's lab results. Result diagrams: 02/19/22 07:32 02/19/22 07:32 Lab Results 02/18/22 02/18/22 02/18/22 Range/Units 04:25 04:25 04:25 WBC 14.47 H (4.8-10.8) K/ul RBC 3.90 L (4.63-6.08) M/uL Hgb 11.8 L (14.0-18.0) g/dl Hct 36.2 L (40.1-51.0) % MCV 92.8 (80.0-100.0) fL MCH 30.3 (25.0-34.0) pg MCHC 32.6 (32.0-36.0) g/dL RDW Std Deviation 48.8 H (36.4-46.3) fL RDW Coeff of Josefina 14.3 (11.5-14.5) % Plt Count 265 (130-400) K/uL MPV 9.0 L (9.4-12.4) fL Immature Gran % (Auto) 0.5 % Neut % (Auto) 85.4 % Lymph % (Auto) 3.7 % Garden % (Auto) 10.2 % Eos % (Auto) 0.1 % Baso % (Auto) 0.1 % Neut # (Auto) 12.36 H (1.4-6.5) K/uL Lymph # (Auto) 0.53 L (1.2-3.4) K/uL Garden # (Auto) 1.48 H (0.24-0.82) K/uL Eos # (Auto) 0.01 (0-0.50) K/uL Baso # (Auto) 0.02 (0-0.2) K/uL Immature Gran # (Auto) 0.07 H (0.00-0.02) K/uL Sodium 138 (136-145) mmol/L Potassium 4.3 (3.5-5.1) mmol/L Chloride 105 (98-107) mmol/L Carbon Dioxide 26 (21-32) mmol/L Anion Gap 7 (3-11) BUN 83 H (6-23) mg/dl Creatinine 3.25 H D (0.6-1.4) mg/dl Est Cr Clr Drug Dosing 19.9 ml/min Est GFR ( Amer) 19.6 ml/min Est GFR (Non-Af Amer) 16.9 ml/min BUN/Creatinine Ratio 25.5 H (10-20) Glucose 132 H (70-99(Fasting)) mg/dl Calcium 9.2 (8.5-10.1) mg/dl Total Bilirubin 0.4 (0.2-1.0) mg/dl AST 17 (13-39) U/L ALT 13 (7-52) U/L Alkaline Phosphatase 104 (34-104) U/L Total Protein 7.0 (6.0-8.3) gm/dl Albumin 3.3 L (3.4-5.0) gm/dl Globulin 3.7 (2.5-4.0) gm/dl Albumin/Globulin Ratio 0.9 (0.9-2) TSH 3.421 (0.300-4.500) uIu/ml Administered Medications Acetaminophen (Acetaminophen 325 Mg Tab) 650 mg PO Q4H PRN PRN Reason: Pain or Fever Stop: 03/20/22 14:40 Last Admin: 02/18/22 19:32 Dose: 650 mg Documented By: TNArmin Ampicillin Sodium/Sulbactam Sodium 3,000 mg/ Sodium Chloride 108 mls @ 200 mls/hr IV Q12H [facility]; Protocol Stop: 03/01/22 08:59 Last Infusion: 02/19/22 10:34 Dose: 0 mls/hr Documented By: [id number] Admin: 02/19/22 09:26 Dose: 200 mls/hr Documented By: [id number] Sodium Chloride (Nss) 500 mls @ 60 mls/hr IV .Q8H20M [facility] Stop: 02/20/22 01:19 Last Admin: 02/19/22 17:22 Dose: 60 mls/hr Documented By: [id number] Lactobacillus Acidophilus (Advanced Probiotic 1250 Mg Capsule) 2 cap PO DAILY [facility]; Protocol Stop: 03/21/22 08:59 Last Admin: 02/19/22 08:34 Dose: 2 cap Documented By: [id number] Metoprolol Succinate (Metoprolol Succ 25mg Ext Rel Tab) 25 mg PO BID [facility] Stop: 03/20/22 20:59 Last Admin: 02/19/22 08:34 Dose: Not Given Documented By: [id number] Admin: 02/18/22 21:26 Dose: 25 mg Documented By: JEDK Multivitamins (Multivitamin Tab) 1 tab PO [facility] Stop: 03/21/22 08:59 Last Admin: 02/19/22 08:35 Dose: 1 tab Documented By: [id number] Pantoprazole Sodium (Pantoprazole 40 Mg Tab) 40 mg PO [facility]; Protocol Stop: 03/21/22 08:59 Last Admin: 02/19/22 08:35 Dose: 40 mg Documented By: [id number] Potassium Chloride (Potassium Chloride Crtab 20 Meq Tabcr) 20 meq PO DAILY [facility] Stop: 03/21/22 08:59 Last Admin: 02/19/22 08:34 Dose: 20 meq Documented By: [id number] Raspberry (Raspberry Syrup 5 Ml Udp) 5 ml PO DAILY [facility] Stop: 03/01/22 08:59 Last Admin: 02/19/22 08:35 Dose: 5 ml Documented By: [id number] Rosuvastatin Calcium (Rosuvastatin Calcium 10 Mg Tab) 10 mg PO [facility] Stop: 03/20/22 20:59 Last Admin: 02/18/22 21:26 Dose: 10 mg Documented By: JEDK Trazodone HCl (Trazodone Hcl 100 Mg Tab) 100 mg PO [facility] Stop: 03/20/22 20:59 Last Admin: 02/18/22 21:26 Dose: 100 mg Documented By: JEDK Vancomycin HCl (Vancomycin Hcl 125 Mg/2.5ml Soln) 125 mg PO DAILY [facility] Stop: 03/21/22 08:59 Last Admin: 02/19/22 08:39 Dose: 125 mg Documented By: [id number] Discontinued Medications Sodium Chloride (Nss 1000ml) 1,000 mls @ 75 mls/hr IV .[id number] [facility] Stop: 02/18/22 16:00 Last Infusion: 02/18/22 18:10 Dose: 0 mls/hr Documented By: Admin: 02/18/22 13:16 Dose: 200 mls/hr Documented By: Infusion: 02/18/22 12:58 Dose: 0 mls/hr Documented By: Admin: 02/18/22 08:40 Dose: 200 mls/hr Documented By: AP Metronidazole (Flagyl) 500 mg in 100 mls @ 100 mls/hr IV NOW STA Stop: 02/18/22 08:18 Last Infusion: 02/18/22 09:49 Dose: 0 mls/hr Documented By: Admin: 02/18/22 08:40 Dose: 100 mls/hr Documented By: AP Ceftriaxone Sodium (Rocephin) 2,000 mg in 70 mls @ 140 mls/hr IV NOW STA Stop: 02/18/22 07:48 Last Infusion: 02/18/22 09:49 Dose: 0 mls/hr Documented By: Admin: 02/18/22 08:40 Dose: 140 mls/hr Documented By: AP Sodium Chloride (Nss 1000ml) 1,000 mls @ 999 mls/hr IV .Q1H1M ONE Stop: 02/18/22 08:21 Last Infusion: 02/18/22 08:41 Dose: 0 mls/hr Documented By: Admin: 02/18/22 07:30 Dose: 999 mls/hr Documented By: AP Sodium Chloride (Nss 1000ml) 1,000 mls @ 999 mls/hr IV .Q1H1M [facility] Stop: 02/18/22 13:55 Last Infusion: 02/18/22 14:23 Dose: 0 mls/hr Documented By: Admin: 02/18/22 13:01 Dose: 999 mls/hr Documented By: TNB Metronidazole (Flagyl) 500 mg in 100 mls @ 100 mls/hr IV Q8H [facility] Stop: 02/28/22 15:59 Last Infusion: 02/19/22 01:32 Dose: 0 mls/hr Documented By: Admin: 02/18/22 23:56 Dose: 100 mls/hr Documented By: Infusion: 02/18/22 17:32 Dose: 0 mls/hr Documented By: Admin: 02/18/22 16:26 Dose: 100 mls/hr Documented By: TNB Imaging Data Radiologist's Impression: Chest X-Ray 02/18/22 04:48 XR chest 1V portable CLINICAL HISTORY: weakness TECHNIQUE: Single frontal radiograph of the chest was obtained. Comparison: None available at the time of this dictation. FINDINGS: No lines and tubes are seen. Cardiomegaly is noted. The lungs are clear. No evidence of pleural effusion or pneumothorax. IMPRESSION: No acute chest disease. ACT 112: Negative or not required by law. Electronically signed by: Av Sanon M.D. 02/18/2022 9:[address] 02/18/22 07:[address] DOSE: 480.92 mGycm HISTORY: fall, trauma TECHNIQUE: Multiaxial CT images of the cervical spine were performed and reformatted in the sagittal and coronal plane without the use of contrast. A dose lowering technique was utilized adhering to the principles of ALARA. COMPARISON: None. FINDINGS: No fractures. No subluxation. Prevertebral soft tissues and the C1-C2 interval are intact. No pneumothorax. Old infarct noted within the right cerebellar hemisphere and left occipital lobe. Moderate to severe degenerative disc disease at C6-C7 and C7-T1. Mild disc space narrowing at C5-C6. IMPRESSION: No fractures within the cervical spine. ACT 112: Negative or not required by law. Electronically signed by: Ovi Vaz M.D. 02/18/2022 8:[address] 02/18/22 07:19 CT head/brain wo con CLINICAL HISTORY: CHI Technique: Contiguous axial CT images of the head were acquired from the base of the skull to the vertex without intravenous contrast administration. Images were viewed in brain, subdural and bone windows. Automated dose lowering techniques and/or adjustment according to patient size were utilized for this exam. Comparison: Comparison is made to CT head 11/28/2018 Findings: Areas of decreased attenuation are present in the periventricular and subcortica l white matter bilaterally consistent with small vessel ischemic disease. Generalized cerebral atrophy with commensurate enlargement of the ventricles, sulci, and cisterns is also present. There is no acute intracranial hemorrhage or evidence of acute territorial infarction. No shift of the midline structures, mass effect, or extra-axial abnormalities are shown. Atherosclerotic calcifications are present in the intracranial segments of the internal carotid arteries. Encephalomalacia in the left occipital lobe is new from prior exam. Bilateral maxillary sinus opacification is seen. Ethmoid sinus disease is seen. The orbits appear normal. There are no acute fractures of the calvaria or scalp swelling. Impression: No acute intracranial hemorrhage, skull fractures, or scalp swelling. Maxillary and ethmoid sinus opacification may be related to recent trauma. ACT 112: Negative or not required by law. Electronically signed by: Av Sanon M.D. 02/18/2022 8:[address] 02/18/22 07:19 CT sinus wo con CLINICAL HISTORY: R epistaxis s/p nasal packing TECHNIQUE: Multidetector axial CT images through the sinuses were obtained. Coronal and sagittal reformations were also obtained. Automated dose lowering techniques and/or adjustment according to patient size were utilized for this examination. CT DOSE: 699.51 mGycm Comparison: None available at the time of this dictation. FINDINGS: Near opacification of bilateral maxillary sinuses is seen. Multiple ethmoid air cells are opacified. There is mild soft tissue thickening in the frontal sinuses. The orbits appear normal. There are no acute fractures of the calvaria or scalp swelling. IMPRESSION: Opacification of the bilateral maxillary sinuses and numerous ethmoid air cells. Findings may be related to epistaxis. No acute fracture is seen. ACT 112: Negative or not required by law. Electronically signed by: Av Sanon M.D. 02/18/2022 8:44 AM Blood Pressure Blood Pressure Findings: Normal blood pressure Blood Pressure Disposition: did not require urgent referral Discharge Plan Visit Data Chief Complaint: Weakness ED Provider: Megan Jung Discharge Problem: Acute infection of sinus, Fall, Weakness generalized, Acute prerenal failure Patient Disposition: Admitted As Inpatient Discharge Instructions Interventions: ED Discharge Assessment Last Done: 02/18/22 14:42 : Acute infection of sinus Qualifiers: Sinusitis location: maxillary Fall Qualifiers: Encounter type: initial encounter Qualified Code(s): W19.XXXA - Unspecified fall, initial encounter
[2022-02-19] MEDS: traZODone HCL 100 MG TAB PO SCH (21:32)
[2022-02-19] MEDS: ROSUVASTATIN CALCIUM 10 MG TAB PO SCH (21:32)
[2022-02-20 06:15] LABS: Hematocrit (blood only) 32.7 % (40.1-51.0); Hemoglobin 10.4 g/dl (14.0-18.0); INR 1.4 (0.9-1.1); Mean Corpuscular Hemoglobin 29.5 pg (25.0-34.0); Mean Corpuscular Hgb Conc 31.8 g/dL (32.0-36.0); Mean Corpuscular Volume 92.6 fL (80.0-100.0); Mean Platelet Volume 8.7 fL (9.4-12.4); Platelet Count 251 K/uL (130-400); Prothrombin Time 14.3 Seconds (9.0-12.0); RDW Standard Deviation 47.4 fL (36.4-46.3); Red Blood Count 3.53 M/uL (4.63-6.08); White Blood Count 8.82 K/ul (4.8-10.8)
[2022-02-20 06:35] LABS: BUN Creatinine Ratio 21.3 (10-20); Calcium 8.6 mg/dl (8.5-10.1); Creatinine Clr Calc Pharmacy 22.2 ml/min; Est GFR (African American) 21.2 ml/min; Est GFR (Non-African American) 18.3 ml/min; Potassium 4.4 mmol/L (3.5-5.1)
[2022-02-20] MEDS: RASPBERRY SYRUP 5 ML UDP PO SCH (07:37)
[2022-02-20] MEDS: METOPROLOL SUCC 25MG EXT REL TAB PO SCH ×2 (07:37→20:42)
[2022-02-20] MEDS: MULTIVITAMIN TAB PO SCH (07:37)
[2022-02-20] MEDS: ADVANCED PROBIOTIC 1250 MG CAPSULE PO SCH (07:37)
[2022-02-20] MEDS: PANTOprazole 40 MG TAB PO SCH (07:37)
[2022-02-20] MEDS: POTASSIUM CHLORIDE CRTAB 20 MEQ TABCR PO SCH (07:40)
[2022-02-20] MEDS: AMPICILLIN/SULBACTAM SOD 3,000 MG in 0.9 % SODIUM CHLORIDE 100 ML IV SCH ×2 (07:41→20:41)
[2022-02-20] MEDS: VANCOMYCIN HCL 125 MG/2.5ML SOLN PO SCH (07:41)
--- NOTE | 2022-02-20 14:08 | Hospitalist Progress Note ---
Date of Service February 20, 2022 Assessment & Plan (1) Fall: (2) Sinusitis, acute maxillary: (3) Anterior epistaxis: (4) Cerebrovascular disease: (5) Colitis due to Clostridioides difficile: (6) Chronic kidney disease, stage IV (severe): (7) PVD (peripheral vascular disease): (8) Atrial fibrillation: (9) Chronic diastolic (congestive) heart failure: (10) CAD (coronary artery disease): (11) HTN (hypertension): Plan Per admitting notes with addendum: This is an 81-year-old male with PMH of HFpEF, chronic atrial fibrillation on Coumadin, peripheral vascular disease, CKD 4, hypertension, history of CVA and other medical problems listed below who presents from home after a fall this morning. Fall In setting of infection, generalized weakness No head trauma or LOC Fall precautions PT/OT evaluation 02/20 Blood pressure improving d/c IV fluids PT and OT evaluation Recent epistaxis, acute sinusitis Nasal packing removed 02/17 and started on rocephin and flagyl given wbc 19, sinusitis sx Continued on rocephin, flagyl today (regimen selected with help from pharmacy due to pt's chronic c diff), follow blood cx from 02/17 Initially meeting sepsis criteria with soft BP, tachycardia and WBC of 14 (improved from yesterday) but BP and HR normalized with fluids - continue maintenance fluids while monitoring volume status closely due to HFpEF 02/20 No recurrence of epistaxis Clinically improving daily Afebrile Blood cultures: Negative Continue IV Unasyn ENT consulted: can resume coumadin in 2 days CAD S/p CABG. Continue metoprolol succinate, statin, hold plavix to prevent epi staxis Chronic atrial fibrillation Rate controlled with metoprolol succinate, holding Coumadin since 02/12 due to elevated INR and acute epistaxis. INR 1.5 Coumadin on hold Hyperlipidemia Continue statin Peripheral vascular disease H/o bilateral carotid endarterectomy. Holding Plavix. Continue statin CKD IV Cr 3.25 today (baseline 3.5-4 per most recent nephro note). Follows with Dr. Rodrigues. Patient not interested in HD at any point Avoid nephrotoxic agents as able Creatinine at baseline HFpEF Holding his Bumex for now given dehydrated appearance, infection and getting gentle fluids CXR without s/sx of volume overload. Continue to monitor for any volume overload Low sodium diet Patient appears on the dry side given gentle IV fluids 500 cc Chronic recurrent Clostridium difficile Continue his home PO vancomycin DVT Ppx: SCDs for now Code status: DNR/DNI per discussion with patient PCP: Gold Dispo: Lives at home with his PT and OT evaluation pending Admission and Anticipated Discharge Date Admission Date: February 18, 2022 Subjective ff up for acute sinusitis, dehydration, etc seen resting in chair, comfortable in good spirits states he feels better overall today no facial pain, nasal drainage ambulating in the room with no problems, no dizziness, chest pain, palpitations, etc no other symptoms Review of Systems Review of Systems: all noted and negative except for above Physical Exam Physical Exam: General- oriented x 3, not in distress, speaks in sentences with no effort or accessory muscle use Face- no edema, erythema Eyes- anicteric Neck- no JVD Lungs- clear BS bilaterally, no rales/wheezes Heart- normal rate, regular rhythm; no murmurs Abdomen- normal bowel sounds, nondistended, soft, nontender Extremities- no pretibial edema, no calf tenderness Neuro- alert, oriented x 3; no gross focal neurologic deficits Skin- warm & dry Results & Data Results & Data ([facility]) Vital Signs (Past 12 Hours) Vital Signs Temp Pulse Pulse Resp BP Pulse Ox O2 Del Method 02/20/22 11:24 36.9 C 86 16 89/46 L 95 Room Air 02/20/22 07:44 37.0 C 89 16 100/46 L 94 Room Air 02/20/22 07:14 73 02/20/22 03:32 36.5 C 82 18 136/67 94 Room Air all noted and reviewed including below
[2022-02-20] MEDS: ROSUVASTATIN CALCIUM 10 MG TAB PO SCH (20:42)
[2022-02-20] MEDS: traZODone HCL 100 MG TAB PO SCH (20:42)
[2022-02-21] MEDS: METOPROLOL SUCC 25MG EXT REL TAB PO SCH ×2 (06:56→21:22)
[2022-02-21] MEDS: ADVANCED PROBIOTIC 1250 MG CAPSULE PO SCH (06:56)
[2022-02-21] MEDS: MULTIVITAMIN TAB PO SCH (06:56)
[2022-02-21] MEDS: PANTOprazole 40 MG TAB PO SCH (06:56)
[2022-02-21] MEDS: RASPBERRY SYRUP 5 ML UDP PO SCH (06:57)
[2022-02-21] MEDS: AMPICILLIN/SULBACTAM SOD 3,000 MG in 0.9 % SODIUM CHLORIDE 100 ML IV SCH ×2 (07:00→21:19)
[2022-02-21] MEDS: POTASSIUM CHLORIDE CRTAB 20 MEQ TABCR PO SCH (07:00)
[2022-02-21] MEDS: VANCOMYCIN HCL 125 MG/2.5ML SOLN PO SCH (07:00)
--- NOTE | 2022-02-21 14:58 | Hospitalist Progress Note ---
Date of Service February 21, 2022 Assessment & Plan (1) Fall: (2) Sinusitis, acute maxillary: (3) Anterior epistaxis: (4) Cerebrovascular disease: (5) Colitis due to Clostridioides difficile: (6) Chronic kidney disease, stage IV (severe): (7) PVD (peripheral vascular disease): (8) Atrial fibrillation: (9) Chronic diastolic (congestive) heart failure: (10) CAD (coronary artery disease): (11) HTN (hypertension): Plan Per admitting notes with addendum: This is an 81-year-old male with PMH of HFpEF, chronic atrial fibrillation on Coumadin, peripheral vascular disease, CKD 4, hypertension, history of CVA and other medical problems listed below who presents from home after a fall this morning. Fall In setting of infection, generalized weakness No head trauma or LOC Fall precautions PT/OT evaluation 02/20 Blood pressure improving d/c IV fluids PT and OT evaluation 02/21 BP stable Encouraged p.o. intake of fluids PT and OT evaluation in progress Recent epistaxis, acute sinusitis Nasal packing removed 02/17 and started on rocephin and flagyl given wbc 19, sinusitis sx Continued on rocephin, flagyl today (regimen selected with help from pharmacy due to pt's chronic c diff), follow blood cx from 02/17 Initially meeting sepsis criteria with soft BP, tachycardia and WBC of 14 (improved from yesterday) but BP and HR normalized with fluids - continue maintenance fluids while monitoring volume status closely due to HFpEF 02/20 No recurrence of epistaxis Clinically improving daily Afebrile Blood cultures: Negative Continue IV Unasyn ENT consulted: can resume coumadin in 2 days 02/21 No recurrence of epistaxis, edema and erythema resolved Blood cultures: Negative Continue IV Unasyn day #3 CAD S/p CABG. Continue metoprolol succinate, statin, resume Plavix tomorrow Chronic atrial fibrillation Rate controlled with metoprolol succinate, holding Coumadin since 02/12 due to elevated INR and acute epistaxis. INR 1.5 Coumadin on hold Hyperlipidemia Continue statin Peripheral vascular disease H/o bilateral carotid endarterectomy. Continue statin Resume Plavix tomorrow CKD IV Cr 3.25 today (baseline 3.5-4 per most recent nephro note). Follows with Dr. Rodrigues. Patient not interested in HD at any point Avoid nephrotoxic agents as able Creatinine at baseline HFpEF Holding his Bumex for now given dehydrated appearance, infection and getting gentle fluids CXR without s/sx of volume overload. Continue to monitor for any volume overload Low sodium diet Patient appears euvolemic Chronic recurrent Clostridium difficile Had 1 loose bowel movement today Monitor Continue his home PO vancomycin DVT Ppx: SCDs for now Code status: DNR/DNI per discussion with patient PCP: Gold Dispo: Lives at home with his PT and OT evaluation pending Anticipate discharge to home when medically stable, hopefully in 1 to 2 days Admission and Anticipated Discharge Date Admission Date: February 18, 2022 Subjective Follow-up for acute sinusitis, epistaxis, fall, etc. Seen resting in bed, sleeping but easily awakened In good spirits States he continues to feel improved overall No on facial pain, epistaxis, has mild nasal drainage No chest pain, shortness of breath, dizziness, palpitation Ambulating in the room with no problems, still on the weak side but improving No other symptoms Review of Systems Review of Systems: all noted and negative except for above Physical Exam Physical Exam: General- oriented x 3, not in distress, speaks in sentences with no effort or accessory muscle use Nose-positive blood clots No active bleeding noted Face- no edema, erythema Eyes- anicteric Neck- no JVD Lungs- clear breath sounds bilaterally, no crackles or wheezing Heart- normal rate, regular rhythm; no murmurs Abdomen- normal bowel sounds, nondistended, soft, no tenderness Extremities- no pretibial edema, no calf tenderness Neuro- alert, oriented x 3; no gross focal neurologic deficits Skin- warm & dry Results & Data Results & Data ([facility]) Vital Signs (Past 12 Hours) Vital Signs Temp Pulse Pulse Resp BP Pulse Ox O2 Del Method 02/21/22 14:39 37.0 C 51 L 20 148/55 H 97 Room Air 02/21/22 11:11 36.7 C 76 20 134/71 96 Room Air 02/21/22 07:34 36.7 C 66 20 121/64 98 Room Air 02/21/22 07:13 74 02/21/22 03:34 36.6 C 68 16 131/71 97 Room Air all noted and reviewed including below
[2022-02-21] MEDS: traZODone HCL 100 MG TAB PO SCH (21:20)
[2022-02-21] MEDS: ROSUVASTATIN CALCIUM 10 MG TAB PO SCH (21:20)
[2022-02-22] MEDS: METOPROLOL SUCC 25MG EXT REL TAB PO SCH ×2 (09:02→21:35)
[2022-02-22] MEDS: PANTOprazole 40 MG TAB PO SCH (09:02)
[2022-02-22] MEDS: RASPBERRY SYRUP 5 ML UDP PO SCH (09:02)
[2022-02-22] MEDS: ADVANCED PROBIOTIC 1250 MG CAPSULE PO SCH (09:03)
[2022-02-22] MEDS: MULTIVITAMIN TAB PO SCH (09:03)
[2022-02-22] MEDS: POTASSIUM CHLORIDE CRTAB 20 MEQ TABCR PO SCH (09:12)
[2022-02-22] MEDS: AMPICILLIN/SULBACTAM SOD 3,000 MG in 0.9 % SODIUM CHLORIDE 100 ML IV SCH (09:13)
[2022-02-22] MEDS: VANCOMYCIN HCL 125 MG/2.5ML SOLN PO SCH (09:13)
--- NOTE | 2022-02-22 15:15 | Hospitalist Progress Note ---
Date of Service February 22, 2022 Assessment & Plan (1) Fall: (2) Sinusitis, acute maxillary: (3) Anterior epistaxis: (4) Cerebrovascular disease: (5) Colitis due to Clostridioides difficile: (6) Chronic kidney disease, stage IV (severe): (7) PVD (peripheral vascular disease): (8) Atrial fibrillation: (9) Chronic diastolic (congestive) heart failure: (10) CAD (coronary artery disease): (11) HTN (hypertension): Plan Per admitting notes with addendum: This is an 81-year-old male with PMH of HFpEF, chronic atrial fibrillation on Coumadin, peripheral vascular disease, CKD 4, hypertension, history of CVA and other medical problems listed below who presents from home after a fall this morning. Fall In setting of infection, generalized weakness No head trauma or LOC Fall precautions PT/OT evaluation BP remained stable Encouraged p.o. intake of fluids PT and OT evaluation in progress Recent epistaxis, acute sinusitis Nasal packing removed 02/17 and started on rocephin and flagyl given wbc 19, sinusitis sx Continued on rocephin, flagyl today (regimen selected with help from pharmacy due to pt's chronic c diff), follow blood cx from 02/17 Initially meeting sepsis criteria with soft BP, tachycardia and WBC of 14 (improved from yesterday) but BP and HR normalized with fluids - continue maintenance fluids while monitoring volume status closely due to HFpEF No recurrence of epistaxis since admission Blood culture: Negative Transition from Unasyn to Augmentin twice daily, to complete 7-day course Restart Coumadin today CAD S/p CABG. Continue metoprolol succinate, statin, resume Plavix tomorrow Chronic atrial fibrillation Rate controlled with metoprolol succinate, holding Coumadin since 02/12 due to elevated INR and acute epistaxis. INR 1.5 Resume Coumadin today Warfarin 4 mg Mondays 2 mg every other days Hyperlipidemia Continue statin Peripheral vascular disease H/o bilateral carotid endarterectomy. Continue statin Resume Plavix tomorrow CKD IV Cr 3.25 today (baseline 3.5-4 per most recent nephro note). Follows with Dr. Rodrigues. Patient not interested in HD at any point Avoid nephrotoxic agents as able Creatinine at baseline HFpEF Holding his Bumex for now given dehydrated appearance, infection and getting gentle fluids CXR without s/sx of volume overload. Continue to monitor for any volume overload Low sodium diet Patient appears euvolemic Chronic recurrent Clostridium difficile Had 1 soft stool today Monitor Continue his home PO vancomycin DVT Ppx: SCDs for now Code status: DNR/DNI per discussion with patient PCP: Gold Dispo: Lives at home with his PT and OT evaluation pending Anticipate discharge to home when medically stable, hopefully in 1 to 2 days Admission and Anticipated Discharge Date Admission Date: February 18, 2022 Subjective Follow-up for acute sinusitis, epistaxis, fall, etc. Seen resting in bed, comfortable, not in distress States he feels improved overall Ambulated in the hallways with no problems Denies facial pain, epistaxis, has mild nasal discharge No fevers or chills Had 1 soft stool this morning Abdominal pain, nausea vomiting Appetite is good No other symptoms Review of Systems Review of Systems: all noted and negative except for above Physical Exam Physical Exam: General- oriented x 3, not in distress, speaks in sentences with no effort or accessory muscle use Face-no edema, erythema Nose-blood clots in place, no active bleeding Eyes- anicteric Neck- no JVD Lungs- clear BS BL Heart- normal rate, regular rhythm; no murmurs Abdomen- normal bowel sounds, nondistended, soft, nontender Extremities- no pretibial edema, no calf tenderness Neuro- alert, oriented x 3; no gross focal neurologic deficits Skin- warm & dry Results & Data Results & Data ([facility]) Vital Signs (Past 12 Hours) Vital Signs Temp Pulse Pulse Resp BP Pulse Ox O2 Del Method 02/22/22 08:00 67 02/22/22 10:59 36.4 C L 73 20 150/76 H 97 Room Air 02/22/22 07:53 37.0 C 85 16 107/53 L 95 Room Air all noted and reviewed including below
[2022-02-22] MEDS ORDERED: WARFARIN SOD 4 MG TAB PO SCH (16:00)
[2022-02-22] MEDS: AMOXICILLIN/CLAVULANATE 500 MG TAB PO SCH (17:53)
[2022-02-22] MEDS: ACETAMINOPHEN 325 MG TAB PO PRN (21:34)
[2022-02-22] MEDS: traZODone HCL 100 MG TAB PO SCH (21:37)
[2022-02-22] MEDS: ROSUVASTATIN CALCIUM 10 MG TAB PO SCH (21:37)
[2022-02-23 08:52] LABS: Basophils # (auto) 0.02 K/uL (0-0.2); Basophils % (auto) 0.3 %; Eosinophils # (auto) 0.08 K/uL (0-0.50); Hematocrit (blood only) 33.3 % (40.1-51.0); Hemoglobin 10.6 g/dl (14.0-18.0); Immature Granulocytes # (auto) 0.04 K/uL (0.00-0.02); Immature Granulocytes % (auto) 0.5 %; Lymphocytes # (auto) 1.36 K/uL (1.2-3.4); Lymphocytes % (auto) 17.5 %; Mean Corpuscular Hemoglobin 30.2 pg (25.0-34.0); Mean Corpuscular Hgb Conc 31.8 g/dL (32.0-36.0); Mean Corpuscular Volume 94.9 fL (80.0-100.0); Mean Platelet Volume 8.7 fL (9.4-12.4); Monocytes # (auto) 0.86 K/uL (0.24-0.82); Monocytes % (auto) 11.1 %; Neutrophils # (auto) 5.42 K/uL (1.4-6.5); Neutrophils % (auto) 69.6 %; Platelet Count 242 K/uL (130-400); RDW Coefficient of Variation 14.2 % (11.5-14.5); RDW Standard Deviation 49.5 fL (36.4-46.3); Red Blood Count 3.51 M/uL (4.63-6.08); White Blood Count 7.78 K/ul (4.8-10.8)
[2022-02-23 09:05] LABS: INR 1.3 (0.9-1.1)
[2022-02-23 09:14] LABS: BUN Creatinine Ratio 17.5 (10-20); Calcium 9.1 mg/dl (8.5-10.1); Creatinine Clr Calc Pharmacy 25.5 ml/min; Est GFR (African American) 24.6 ml/min; Est GFR (Non-African American) 21.2 ml/min; Potassium 4.8 mmol/L (3.5-5.1)
[2022-02-23] MEDS: METOPROLOL SUCC 25MG EXT REL TAB PO SCH ×2 (10:00→21:19)
[2022-02-23] MEDS: MULTIVITAMIN TAB PO SCH (11:07)
[2022-02-23] MEDS: AMOXICILLIN/CLAVULANATE 500 MG TAB PO SCH ×2 (11:08→17:44)
[2022-02-23] MEDS: PANTOprazole 40 MG TAB PO SCH (11:08)
[2022-02-23] MEDS: RASPBERRY SYRUP 5 ML UDP PO SCH (11:08)
[2022-02-23] MEDS: ADVANCED PROBIOTIC 1250 MG CAPSULE PO SCH (11:08)
[2022-02-23] MEDS: ACETAMINOPHEN 325 MG TAB PO PRN ×2 (11:09→21:19)
[2022-02-23] MEDS: POTASSIUM CHLORIDE CRTAB 20 MEQ TABCR PO SCH (11:22)
[2022-02-23] MEDS: VANCOMYCIN HCL 125 MG/2.5ML SOLN PO SCH (11:22)
[2022-02-23] MEDS ORDERED: WARFARIN SOD 2 MG TAB PO SCH (16:00)
--- NOTE | 2022-02-23 16:13 | Hospitalist Progress Note ---
Date of Service February 23, 2022 Assessment & Plan (1) Fall: (2) Sinusitis, acute maxillary: (3) Anterior epistaxis: (4) Cerebrovascular disease: (5) Colitis due to Clostridioides difficile: (6) Chronic kidney disease, stage IV (severe): (7) PVD (peripheral vascular disease): (8) Atrial fibrillation: (9) Chronic diastolic (congestive) heart failure: (10) CAD (coronary artery disease): (11) HTN (hypertension): Plan This is an 81-year-old male with PMH of HFpEF, chronic atrial fibrillation on Coumadin, peripheral vascular disease, CKD 4, hypertension, history of CVA and other medical problems listed below who presents from home after a fall this morning. Fall In setting of sinus infection,recent recurrent epistaxis, generalized weakness No head trauma or LOC Fall precautions PT/OT evaluation BP remained stable Encouraged p.o. intake of fluids PT and OT evaluation in progress Recent epistaxis, acute sinusitis Nasal packing removed 02/17 and started on rocephin and flagyl given wbc 19, sinusitis sx Initially meeting sepsis criteria with soft BP, tachycardia and WBC of 14 (improved from yesterday) but BP and HR normalized with fluids - continue maintenance fluids while monitoring volume status closely due to HFpEF ENT consulted, no other interventions/procedures No recurrence of epistaxis since admission Blood culture: Negative Transition from Unasyn to Augmentin twice daily, to complete 7-day course (last day of antibiotics 02/24/22) Restarted Coumadin yesterday Restart Plavix monitor Chronic recurrent Clostridium difficile Had 2-3 loose/soft stools today check for C diff Continue his home PO vancomycin CAD S/p CABG. Continue metoprolol succinate, statin, Plavix Chronic atrial fibrillation Rate controlled with metoprolol succinate, holding Coumadin since 02/12 due to elevated INR and acute epistaxis. INR 1.3 resumed coumadin yesterday: Warfarin 4 mg Mondays 2 mg every other days Hyperlipidemia Continue statin Peripheral vascular disease H/o bilateral carotid endarterectomy Continue statin Resume Plavix CKD IV Cr 3.25 today (baseline 3.5-4 per most recent nephro note). Follows with Dr. Rodrigues. Patient not interested in HD at any point Avoid nephrotoxic agents as able Creatinine at baseline HFpEF resume usual Bumex today DVT Ppx: SCDs for now Code status: DNR/DNI per discussion with patient PCP: Gold Dispo: Lives at home with his PT and OT evaluation: recommend return to home may benefit from home health services Anticipate discharge to home when medically stable, hopefully in 1 to 2 days Admission and Anticipated Discharge Date Admission Date: February 18, 2022 Subjective ff up for epistaxis, sinusitis, fall, etc seen resting in bed, comfortable in good spirits states he feels good overall had some facial pain earlier, resolved no epistaxis, has some nasal discharge reports 2-3 loose/soft stools today, no abdominal pain, fever/chills appetite is good no other symptoms Review of Systems Review of Systems: all noted and negative except for above Physical Exam Physical Exam: General- oriented x 3, not in distress, speaks in sentences w ith no effort or accessory muscle use Face- mild periorbital edema? BL no erythema/warmth/tenderness Nose- no nasal discharge no active bleeding noted Eyes- anicteric Neck- no JVD Lungs- clear BS bilaterally, no rales/wheezes Heart- normal rate, regular rhythm; no murmurs Abdomen- normal bowel sounds, nondistended, soft, nontender Extremities- no pretibial edema, no calf tenderness Neuro- alert, oriented x 3; no gross focal neurologic deficits Skin- warm & dry Results & Data Results & Data ([facility]) Vital Signs (Past 12 Hours) Vital Signs Temp Pulse Pulse Resp BP BP Pulse Ox 02/23/22 15:31 36.6 C 48 L 20 149/71 H 97 02/23/22 08:00 73 02/23/22 11:16 36.9 C 70 20 106/67 94 02/23/22 07:47 36.5 C 75 18 159/84 H 95 O2 Del Method 02/23/22 15:31 Room Air 02/23/22 08:00 02/23/22 11:16 Room Air 02/23/22 07:47 Room Air all noted and reviewed including below
[2022-02-23] MEDS: BUMETANIDE 1 MG TAB PO SCH (17:38)
[2022-02-23] MEDS: traZODone HCL 100 MG TAB PO SCH (21:19)
[2022-02-23] MEDS: ROSUVASTATIN CALCIUM 10 MG TAB PO SCH (21:19)
[2022-02-24] MEDS: METOPROLOL SUCC 25MG EXT REL TAB PO SCH (08:34)
[2022-02-24] MEDS: BUMETANIDE 1 MG TAB PO SCH (08:34)
[2022-02-24] MEDS: ADVANCED PROBIOTIC 1250 MG CAPSULE PO SCH (08:35)
[2022-02-24] MEDS: AMOXICILLIN/CLAVULANATE 500 MG TAB PO SCH (08:35)
[2022-02-24] MEDS: MULTIVITAMIN TAB PO SCH (08:35)
[2022-02-24] MEDS: PANTOprazole 40 MG TAB PO SCH (08:35)
[2022-02-24] MEDS: POTASSIUM CHLORIDE CRTAB 20 MEQ TABCR PO SCH (08:37)
[2022-02-24] MEDS: VANCOMYCIN HCL 125 MG/2.5ML SOLN PO SCH (08:37)
[2022-02-24] MEDS: RASPBERRY SYRUP 5 ML UDP PO SCH (08:38)
--- NOTE | 2022-02-24 08:57 | Discharge Summary ---
Date of Service February 24, 2022 Admission HPI Per Admitting Provider This is an 81-year-old male with PMH of HFpEF, chronic atrial fibrillation on Coumadin, peripheral vascular disease, CKD 4, hypertension, history of CVA and other medical problems listed below who presents from home after a fall this morning. Patient has been seen in ER multiple times in the past few weeks, starting with epistaxis on 02/13. Received nasal packing and returned home. Refused antibiotics at that time due to history of C. difficile in the past. Unable to follow-up in ENT outpatient setting for removal of packing due to the holidays, so was seen in the ED again yesterday for unpacking and noted to have worsening weakness, poor appetite and leukocytosis concerning for infection. Imaging revealed evidence of sinusitis and patient was started on ceftriaxone and Flagyl. Returned home and got up around 130AM to use the restroom and after flushing, fell over onto toilet. Denies any loss of consciousness or head trauma but was unable to get up from the floor for 2 hours. Initially refused E MS but eventually convinced him and he was brought into ED for further evaluation. Continues to feel weak and tired. Denies any fever or chills. No lightheadedness, headache, chest pain, shortness of breath, nausea, vomiting, abdominal pain, dysuria, diarrhea or constipation. Continues to have intermittent trace amounts of blood when blowing his nose. Coumadin has been on hold since 02/12. Principal Diagnosis Epistaxis Acute bilateral maxillary sinusitis Discharge Exam Appears Well, No acute Distress, Pleasant ENMT No epistaxis, mucous membrane moist, normocephalic Respiratory Breathing comfortably on room air, no wheezing/rhonchi/rales Cardiovascular Irregular but not rapid, no murmurs/rubs/gallops Musculoskeletal No edema, no cyanosis or clubbing Discharge Data Allergies Allergy/AdvReac Type Severity Reaction Status Date / Time No Known Allergies Allergy Unknown Verified 02/17/22 16:31 Consultations 02/18/22 09:48 ED Decision to Admit Stat 02/19/22 07:57 Consult Otolaryngology (Head and Neck) Routine Ordered Studies 02/18/22 07:19 CT Brain [CT head/brain wo con] Stat CT cervical spine wo con Stat CT sinus wo con Stat Hospital Course (1) Fall: (2) Sinusitis, acute maxillary: (3) Anterior epistaxis: (4) Cerebrovascular disease: (5) Colitis due to Clostridioides difficile: (6) Chronic kidney disease, stage IV (severe): (7) PVD (peripheral vascular disease): (8) Atrial fibrillation: (9) Chronic diastolic (congestive) heart failure: (10) CAD (coronary artery disease): (11) HTN (hypertension): Plan This is an 81-year-old male with PMH of HFpEF, chronic atrial fibrillation on Coumadin, peripheral vascular disease, CKD 4, hypertension, history of CVA and other medical problems listed below who presents from home after a fall in the setting of recurrent epistaxis and generalized weakness. Fall CT head and cervical spine negative for acute findings Evaluated by PT and felt to be stable to return home Recent epistaxis Coumadin and Plavix held on admission. Restarted 02/22/2022 Acute Bilateral Maxillary sinusitis Evaluated by ENT. Nasal packing removed 02/17. Follow up with ENT in 2 weeks after discharge Met sepsis criteria on admission with hypotension, tachycardia and leukocytosis. Sepsis treated and resolved Started on ceftriaxone and flagyl which was then switched to Unasyn and then transitioned to oral Augmentin with plan to complete 7 day course. Blood cultures are negative. Chronic recurrent Clostridium difficile Maintained on home PO vancomycin while here Had loose stool while in the hospital, repeat C Diff assay 02/23/2022 was negative CAD -History of CABG - Continue metoprolol succinate, statin. Plavix resumed Chronic atrial fibrillation -Coumadin held at time of admission and resumed 02/22/2022. -Follow up at the coumadin clinic 02/25/2022. -Last INR 1.3 on 02/23/2022 Hyperlipidemia Continue statin Peripheral vascular disease H/o bilateral carotid endarterectomy On statin and Plavix CKD IV Baseline 3.5-4 per most recent nephro note. Follows with Dr. Rodrigues. Patient not interested in HD at any point Cr remains within baseline while here HFpEF Remains stable Disposition -Patient seen and evaluated by PT, recommended that he may return home with family support. Total Time Total Time Spent Total Time Spent (In Minutes): 38 Discharge Plan Discharge Items Patient Disposition: Home - Self-Care Reason For Visit: FALL, SINUSITIS, MANUEL Discharge Diagnosis: Epistaxis (nose bleed) Sinusitis Activity: Resume your previous activity Non-emergency contact: Primary Care Provider and Specialist Call non-emergency contact if: you have any medication questions Follow-up/Referrals: Lalitha Llanos MD [Physician] - Lamin Malcolm MD [Primary Care Provider] - (Date & Time 03/03/2022 11:00 AM Provider Lamin Malcolm MD Department [facility] ) Diet: Heart Healthy and Low Sodium (2gm) Addtl Attending Provider Instructions: Follow up with ENT in 2 weeks for sinusitis Follow up at [facility] 02/25/2021. INR here was 1.3 on 02/23/2022. Coumadin restarted 02/22/2021 at home doses Pending Studies at Discharge: No Stand-Alone Forms: [facility] [employer], Smoking Cessation Medications and DC Order Prescriptions: New amoxicillin-pot clavulanate 500-125 mg Tablet 1 tab PO BIDM 4 Days Qty: 8 0RF Continued metoprolol succinate 25 mg tablet extended release 24 hr 25 mg PO BID bumetanide 1 mg tablet 1 mg PO BID Qty: 60 2RF rosuvastatin [Crestor] 10 mg tablet 10 mg PO HS Qty: 30 5RF multivitamin Tablet 1 tab PO DAILY potassium chloride [Klor-Con M20] 20 mEq tablet,ER particles/crystals 20 meq PO DAILY Rx Instructions: TAKE 1 TABLET DAILY trazodone 50 mg tablet 100 mg PO HS clopidogrel 75 mg tablet 75 mg PO QAM vancomycin 125 mg capsule 125 mg PO QAM warfarin 2 mg tablet See Rx Instructions .ROUTE .COMPLEX Rx Instructions: 2 mg orally ; DIRECTED,TAKES AT HS.--4 mg mon-wed-tue, 2 mg all others omeprazole 20 mg capsule,delayed release(DR/EC) 20 mg PO QAM Lactobacillus acidoph-L.bulgar 1 million cell Tablet 1 tab PO TIDM bumetanide 2 mg tablet 2 mg PO .COMPLEX PRN (Reason: WT GAIN >3LBS.) Rx Instructions: 2 mg PO Take one tablet twice daily NEEDED for weight gain >3 lbs. Resume 1 mg dose once weight has returned to baseline; Discontinued cephalexin 500 mg capsule 500 mg PO QID 10 Days Qty: 40 0RF metronidazole 500 mg tablet 500 mg PO TID Qty: 30 0RF Discharge Orders: Discharge Order (Routine); Ordered 02/24/22 Ordered By: Shamir Jenkins Admission Data Admit Date/Time: 02/18/22 10:13 Attending Provider: Shamir Jenkins Admit Provider: Frank Guido Primary Care Provider: Lamin Malcolm Other Providers: Frank Guido ; Lalitha Llanos
[2022-02-24] MEDS ORDERED: CLOPIDOGREL BISULFATE 75 MG TAB PO SCH (09:00)
[2022-02-24] MEDS ORDERED: LOPERAMIDE HCL 2 MG CAP PO STA (11:16)
== END 2022-02-24 12:34 | disposition home or self-care (01) ==
LOC: ED 04:15 → SUATTDRO 10:13 → INTOOBSV 10:13 → EDINP 10:13 → 2N 14:42

== ENCOUNTER 2023-04-20 15:10 | Inpatient (IN) ==
--- NOTE | 2023-04-20 15:23 | ED Triage Note ---
Date of Service April 20, 2023 Provider in Triage Author: Tia Anderson History of Present Illness This patient was briefly evaluated while in triage. An abbreviated physical exam was performed. This patient is a 82-year-old Male who presents to the ED via EMS for evaluation of lower leg swelling. H/o CHF. Notes chronic lower leg swelling, unsure of when it started to get worse. Denies CP or SOB. No fevers. No O2 at home. On Warfarin for afib. Physical Exam Constitutional: alert and oriented x3. no acute distress. HEENT: normocephalic, atraumatic. normal conjunctiva.PERRLA. EOM's grossly intact. Respiratory: equal chest rise. normal respiratory effort, no accessory muscle use. Cardiovascular: regular rate and rhythm. MSK: moves all 4 extremities spontaneously Psych:appropriate mood and affect. Initial orders for labs and / or imaging were placed and patient was taken to immediately to treatment room for further evaluation. Please see further documentation for the full ED course.
--- NOTE | 2023-04-20 15:38 | Emergency Department Note ---
Impression & Plan CHF (congestive heart failure), Edema, Shortness of breath ED Provider Note NAME: Vida SANCHEZ AGE: 82 SEX: M : 1940 ARRIVES VIA: Ambulance INFORMANT: Patient ED PROVIDER(S): Joby Rowe DO CHIEF COMPLAINT: Swelling of the legs and shortness of breath HPI: Patient is an 82-year-old male with a past medical history of CKD, hypertension, TIA, A-fib on Coumadin as well as a CABG, stroke and CHF who presents to the ER for increased swelling of bilateral lower extremities which has been getting worse over the past several days. Majority of history is obtained by the as patient does have dementia. She notes the swelling has been increasing. She has noticed that has been very weak and tired and slightly short of breath as well. He has been taking Coumadin and has not missed any doses. ADDITIONAL HISTORY OBTAINED: Per HPI Chronic Medical/Social Conditions Affecting Care: Per HPI PAST MEDICAL HISTORY:See Below PAST SURGICAL HISTORY:See Below FAMILY HISTORY:See Below SOCIAL HISTORY:See Below HOME MEDICATIONS:See Below ALLERGIES:See Below VITALS:See Below PHYSICAL EXAMINATION: GENERAL: Sitting up in bed, alert, well appearing, well nourished, no distress, non-toxic EYE EXAM: normal conjunctiva. PERRL and EOM's grossly intact. OROPHARYNX: mucous membranes are moist NECK: supple, no nuchal rigidity, no adenopathy, non-tender LUNGS: Clear to auscultation. Normal chest wall mechanics HEART: no murmurs, S1 normal and S2 normal ABDOMEN: abdomen soft, non-tender, normo-active bowel sounds, no masses, no rebound or guarding. BACK: Back is symmetrical on inspection and there is no deformity, no midline tenderness, no CVA tenderness. UPPER EXTREMITIES: upper extremities are grossly normal. LOWER EXTREMITIES: Pitting edema tracking up to the thighs NEURO EXAM: Normal sensorium, cranial nerves II-XII grossly intact, normal speech, no gross weakness of arms, no gross weakness of legs. MEDICAL DECISION MAKING: Patient is an 82-year-old male who presents ER with present at bedside who gives the majority of the history. He has extensive pitting edema in the bilateral lower extremities. IV was established blood work was obtained. He is slightly hypoxic and placed on 2 L nasal cannula. Labs show no significant leukocytosis. Mild anemia at 9.6. INR therapeutic at 2.2. Creatinine at 3.4 fairly consistent with previous. LFTs bilirubin was unremarkable. Troponin was elevated. BNP was unremarkable. UA was clear. Patient was given IV Lasix. He remained on 2 L nasal cannula due to the hypoxia. Chest x-ray was suggestive of CHF. Consults/Care Managements Discussions: Per [facility] Triage Nursing notes reviewed. Limited review of prior medical records performed Vital Signs: reviewed and remarkable for tachycardic Differential diagnosis: Differential diagnoses includes but is not limited to pneumonia, bronchitis, COPD/Asthma exacerbation, pneumothorax, pulmonary embolism, congestive heart failure, acute coronary syndrome ER treatment provided: See below Diagnostics interpreted by me include EKG and cardiac monitoring as listed below: -Cardiac Monitoring: An order was placed for continuous cardiac monitoring. The monitor shows a rate of 70 with AFIB rhythm. -ECG: A-fib rate of 69 Left axis QTc 469 No PVCs -Laboratory studies:Interpreted by me as stated above in MDM and shown below. Imaging studies: Xrays: As interpreted by me: Portable AP upright 1 view of the chest shows patchy infiltrates consistent with CHF CTs show: none Procedures:none Critical Care: I have personally spent 32 minutes of critical care time in the direct management of this patient. This includes bedside care, interpretation of diagnostic studies, and testing, discussion with consultants, patient, and family members, and other required patient management activities. This 32 minutes is in excess of all separately billable procedures. Past Med/Surg History Medical History (Updated 04/20/23 @ 20:17 by Joby Rowe DO) Chronic atrial fibrillation Cerebrovascular disease "s/p stroke Nov 2016" PVD (peripheral vascular disease) 2000 - right femoral endarterectomy, left femoral stent 2016 - left common femoral endarterectomy, left common deep femoral endarterectomy, left common and external iliac stent and angioplasty, left femoral and popliteal stent and angioplasty CAD (coronary artery disease) s/p CABG x3 (2003) Acute prerenal failure Weakness generalized Fall Fall Sinusitis, acute maxillary Recurrent Clostridioides difficile infection Reason for chronic vanco therapy Carotid artery disease left (2007) right (2010) GERD (gastroesophageal reflux disease) Hyperlipidemia Diverticular disease Colitis due to Clostridioides difficile Chronic kidney disease, stage IV (severe) Follows with [facility] nephro (Dr. Rodrigues) Stroke 2017 treated with tPA - no residual effects Atrial fibrillation Follows Dr. Norman Wetzel Chronic diastolic (congestive) heart failure HTN (hypertension) Surgical History History of esophagogastroduodenoscopy (EGD) History of colonoscopy H/O vascular surgery 2000 - right femoral endarterectomy, left femoral stent 2016 - left common femoral endarterectomy, left common deep femoral endarterectomy, left common and external iliac stent and angioplasty, left femoral and popliteal stent and angioplasty History of CEA (carotid endarterectomy) left (2007) right (2010) S/P CABG x 3 Family History Other AAA (abdominal aortic aneurysm) Social History Smoking Status: Former smoker Tobacco Type: Cigarettes packs per day: 1.5; Second Hand Exposure: No; Do You Dip or Chew Tobacco: No; Hx Alcohol Use: No Hx Substance Use: No Preferred Language: Malay Communication Ability: Effective Digital Content Manager Required: No Beliefs That Will Affect Care: None Current Living Situation: Spouse Feels Safe at Home: Yes Safety Concerns: Feels Safe At This Time Assistive Devices: Glasses, Hearing Aid - Bilateral and Walker Allergies Allergies Allergy/AdvReac Type Severity Reaction Status Date / Time No Known Allergies Allergy Unknown Verified 04/20/23 16:58 Home Meds Home Medications Medication Instructions Recorded Confirmed metoprolol succinate 25 mg 25 mg PO BID 02/26/19 04/20/23 tablet,extended release 24 hr clopidogrel 75 mg tablet 75 mg PO QAM 09/08/21 04/20/23 omeprazole 20 mg capsule,delayed 20 mg PO QAM 09/08/21 04/20/23 release trazodone 50 mg tablet 50 mg PO HS 09/08/21 04/20/23 vancomycin 125 mg capsule 125 mg PO QAM 09/08/21 04/20/23 warfarin 2 mg tablet 4 mg PO 2XD 09/08/21 04/20/23 multivitamin 1 tab PO DAILY 02/13/22 04/20/23 Lactobacillus acidoph-L.bulgaricus 1 tab PO TIDM 02/17/22 04/20/23 1 million cell tablet bumetanide 1 mg tablet 1 mg PO DAILY 04/20/23 04/20/23 levothyroxine 25 mcg tablet 25 mcg PO DAILY 04/20/23 04/20/23 warfarin 2 mg tablet 2 mg PO .[id number] 04/20/23 04/20/23 Previous Rx's Medication Instructions Recorded rosuvastatin 10 mg tablet (Crestor) 10 mg PO HS #30 tabs 09/20/18 potassium chloride 20 mEq 20 meq PO DAILY #90 tabs 07/16/22 tablet,extended release(part/cryst) (Klor-Con M) Results & Data (ED) Vital Signs Vital Signs - 24 hr 04/20/23 15:22 04/20/23 15:39 04/20/23 17:13 Temperature 36.0 C L Temperature Source Temporal Artery Scan Pulse Rate 126 H 71 69 Pulse Rate from SpO2 Sensor 68 Pulse Rhythm Regular Pulse Strength Normal Respiratory Rate 18 17 Respiratory Effort / Characteristics Non-Labored Respiratory Depth Normal Respiratory Pattern Regular Blood Pressure 100/63 176/57 H Blood Pressure Mean 75 96 Blood Pressure Position Sitting Pulse Oximetry 98 96 Oxygen Delivery Method Room Air Nasal Cannula Oxygen Flow Rate 2 Sepsis Recent Fever Within 48 Hours No Sepsis New/Unexplained Change in Mental Status No Sepsis Action Taken by Nursing No Action Required Laboratory Data 04/20/23 15:50 04/20/23 15:50 Lab Results 04/20/23 Range/Units 15:50 WBC 7.77 (4.8-10.8) K/ul RBC 3.82 L (4.70-6.10) M/uL Hgb 9.6 L (14.0-18.0) g/dl Hct 32.3 L (42.0-52.0) % MCV 84.6 (80.0-100.0) fL MCH 25.1 (25.0-34.0) pg MCHC 29.7 L (32.0-36.0) g/dL RDW Std Deviation 52.9 H (36.4-46.3) fL RDW Coeff of Josefina 17.2 H (11.5-14.5) % Plt Count 299 (130-400) K/uL MPV 8.6 L (9.4-12.4) fL Immature Gran % (Auto) 0.4 % Neut % (Auto) 72.1 % Lymph % (Auto) 15.3 % [place] % (Auto) 11.3 % Eos % (Auto) 0.5 % Baso % (Auto) 0.4 % Neut # (Auto) 5.60 (1.40-6.50) K/uL Lymph # (Auto) 1.19 L (1.20-3.40) K/uL [place] # (Auto) 0.88 H (0.11-0.59) K/uL Eos # (Auto) 0.04 (0.00-0.50) K/uL Baso # (Auto) 0.03 (0.00-0.20) K/uL Immature Gran # (Auto) 0.03 (0.01-0.20) K/uL PT 23.1 H (9.0-12.0) Seconds INR 2.2 H (0.9-1.1) Sodium 133 L (136-145) mmol/L Potassium 5.1 (3.5-5.1) mmol/L Chloride 101 (98-107) mmol/L Carbon Dioxide 24 (21-32) mmol/L Anion Gap 8 (3-11) BUN 61 H (6-23) mg/dl Creatinine 3.46 H (0.6-1.4) mg/dl Est Cr Clr Drug Dosing Not Reportable Est GFR ( Amer) 18.0 ml/min Est GFR (Non-Af Amer) 15.6 ml/min BUN/Creatinine Ratio 17.6 (10-20) Glucose 119 H (70-99(Fasting)) mg/dl Calcium 10.3 (8.6-10.3) mg/dl Magnesium 2.0 (1.7-2.4) mg/dl Total Bilirubin 0.7 (0.2-1.0) mg/dl AST 17 (13-39) U/L ALT 12 (7-52) U/L Alkaline Phosphatase 107 H (34-104) U/L Troponin I High Sens 46.7 H (0-20) pg/ml B-Natriuretic Peptide 400 H (0-100) pg/ml Total Protein 7.7 (6.0-8.3) gm/dl Albumin 3.6 (3.4-5.0) gm/dl Globulin 4.1 H (2.5-4.0) gm/dl Albumin/Globulin Ratio 0.9 (0.9-2) Urine Color Yellow Urine Appearance Clear (Clear) Urine pH 6.5 (4.5-7.5) Ur Specific [place] 1.008 (1.000-1.030) Urine Protein 3+ H (Negative) Urine Glucose (UA) Trace H (Negative) Urine Ketones Negative (Negative) Urine Blood Trace H (Negative) Urine Nitrite Negative (Negative) Urine Bilirubin Negative (Negative) Urine Urobilinogen Negative (Negative) Ur Leukocyte Esterase Negative (Negative) Urine WBC (Auto) 1-5 (0-5) /hpf Urine RBC (Auto) 0-4 (0-4) /hpf U Hyaline Cast (Auto) 1-5 (0-5) /lpf U Epithel Cells (Auto) 0-5 (0-5) /lpf Urine Bacteria (Auto) Negative (Negative) Administered Medications Discontinued Medications Furosemide (Furosemide 40 Mg/4 Ml Vial) 40 mg IV NOW STA Stop: 04/20/23 16:42 Last Admin: 04/20/23 17:12 Dose: 40 mg Documented By: MT Imaging Data Radiologist's Impression: Chest X-Ray 04/20/23 15:26 XR chest 1V portable HISTORY: Shortness of breath. CHF COMPARISON: Chest 02/18/2022 FINDINGS: Slightly rotated study. No pneumothorax. There are trace bilateral pleural effusions. The heart remains enlarged. There are poststernotomy changes. Progressive interstitial/vascular thickening consistent with mild pulmonary edema. No new focal lung consolidations. There is mild elevation of the left hemidiaphragm, unchanged. Vascular calcifications are noted. IMPRESSION: Cardiomegaly with interval development of mild interstitial pulmonary edema and trace bilateral pleural effusions ACT 112: Negative or not required by law. Electronically signed by: Ovi Vaz M.D. 04/20/2023 4:26 PM Discharge Plan Visit Data Chief Complaint: Swelling/Edema to Extremity ED Provider: Joby Rowe Discharge Problem: CHF (congestive heart failure), Edema, Shortness of breath Patient Disposition: Admitted As Inpatient Discharge Instructions Interventions: ED Discharge Assessment Last Done: 04/20/23 18:41 Discharge Problem: CHF (congestive heart failure) Qualifiers: Heart failure type: unspecified Heart failure chronicity: unspecified Qualified Code(s): I50.9 - Heart failure, unspecified Edema Qualifiers: Edema type: unspecified Qualified Code(s): R60.9 - Edema, unspecified
[2023-04-20 16:22] LABS: Basophils # (auto) 0.03 K/uL (0.00-0.20); Basophils % (auto) 0.4 %; Eosinophils # (auto) 0.04 K/uL (0.00-0.50); Eosinophils % (auto) 0.5 %; Hematocrit (blood only) 32.3 % (42.0-52.0); Hemoglobin 9.6 g/dl (14.0-18.0); Immature Granulocytes # (auto) 0.03 K/uL (0.01-0.20); Immature Granulocytes % (auto) 0.4 %; Lymphocytes # (auto) 1.19 K/uL (1.20-3.40); Lymphocytes % (auto) 15.3 %; Mean Corpuscular Hemoglobin 25.1 pg (25.0-34.0); Mean Corpuscular Hgb Conc 29.7 g/dL (32.0-36.0); Mean Corpuscular Volume 84.6 fL (80.0-100.0); Mean Platelet Volume 8.6 fL (9.4-12.4); Monocytes # (auto) 0.88 K/uL (0.11-0.59); Monocytes % (auto) 11.3 %; Neutrophils % (auto) 72.1 %; Platelet Count 299 K/uL (130-400); RDW Coefficient of Variation 17.2 % (11.5-14.5); RDW Standard Deviation 52.9 fL (36.4-46.3); Red Blood Count 3.82 M/uL (4.70-6.10); White Blood Count 7.77 K/ul (4.8-10.8)
[2023-04-20 16:23] LABS: Appearance Urine Clear (Clear); Bacteria Urine Automated Negative (Negative); Bilirubin Urine Negative (Negative); Blood Urine Trace (Negative); Color Urine Yellow; Epithelial Cell Urine Auto 0-5 /lpf (0-5); Glucose Urine UA Trace (Negative); Ketones Urine Negative (Negative); Leukocyte Esterase Urine Negative (Negative); Nitrite Urine Negative (Negative); Protein Urine 3+ (Negative); RBC Urine Automated 0-4 /hpf (0-4); Specific Gravity Urine 1.008 (1.000-1.030); Urobilinogen Urine Negative (Negative); pH Urine 6.5 (4.5-7.5)
--- NOTE | 2023-04-20 16:27 | XRay Report ---
XR chest 1V portable HISTORY: Shortness of breath. CHF COMPARISON: Chest 02/18/2022 FINDINGS: Slightly rotated study. No pneumothorax. There are trace bilateral pleural effusions. The h eart remains enlarged. There are poststernotomy changes. Progressive interstitial/vascular thickening consistent with mild pulmonary edema. No new focal lung consolidations. There is mild elevation of t he left hemidiaphragm, unchanged. Vascular calcifications are noted. IMPRESSION: Cardiomegaly with interval development of mild interstitial pulmonary edema and trace bilateral pleur al effusions ACT 112: Negative or not required by law. Electronically signed by: Ovi Vaz M.D. 04/20/2023 4:26 PM
[2023-04-20 16:38] LABS: Alanine Aminotransferase 12 U/L (7-52); Albumin Globulin Ratio 0.9 (0.9-2); Albumin Level 3.6 gm/dl (3.4-5.0); Alkaline Phosphatase 107 U/L (34-104); Anion Gap 8 (3-11); Aspartate Aminotransferase 17 U/L (13-39); BUN Creatinine Ratio 17.6 (10-20); Bilirubin,Total 0.7 mg/dl (0.2-1.0); Blood Urea Nitrogen 61 mg/dl (6-23); Calcium 10.3 mg/dl (8.6-10.3); Carbon Dioxide 24 mmol/L (21-32); Chloride 101 mmol/L (98-107); Est GFR (Non-African American) 15.6 ml/min; Globulin 4.1 gm/dl (2.5-4.0); Glucose 119 mg/dl (70-99(Fasting)); Potassium 5.1 mmol/L (3.5-5.1); Sodium 133 mmol/L (136-145); Total Protein 7.7 gm/dl (6.0-8.3)
[2023-04-20 16:44] LABS: Troponin I High Sensitivity 46.7 pg/ml (0-20)
--- NOTE | 2023-04-20 17:11 | History & Physical Report ---
Date of Service April 20, 2023 Assessment & Plan (1) Acute on chronic diastolic (congestive) heart failure: (2) Acute hypoxic respiratory failure: (3) Leg edema: (4) Chronic kidney disease, stage IV (severe): (5) CAD (coronary artery disease): (6) PVD (peripheral vascular disease): (7) Cerebrovascular disease: (8) Chronic atrial fibrillation: (9) Anemia: (10) Recurrent Clostridioides difficile infection: Plan: Plan: Patient is 82-year-old male with PMH HTN, dyslipidemia, PVD, CAD, TIA, CKD IV, chronic atrial fibrillation, on chronic anticoagulation, chronic anemia, and others listed below presented to ER with complaint of lower extremity edema x several days. Acute on chronic diastolic heart failure Acute hypoxic respiratory failure In ER reported patient oxygen saturations dropped to 80s on room air. Was placed on 2 L nasal cannula with sats up to 98% CXR: Cardiomegaly with interval development of mild interstitial pulmonary edema and trace bilateral pleural effusions BNP: 400 In ER given 40 mg Lasix IV Monitor I's and O's, daily weights, low-sodium diet Patient refused Harmon catheter Bumex 1 mg IV twice daily Continue potassium supplement Supplemental oxygen as needed, wean as able Echo Cardiology consult CBC, BMP in a.m. Elevated troponin HS troponin: 46 EKG atrial fibrillation, nonspecific ST changes inferior leads. Prior EKG reviewed and had T wave inversion inferior leads Denies chest pain, shortness of breath Likely demand ischemia from fluid overload. Possibly elevated secondary to CKD Trend troponin Echo EKG in a.m. LLE Edema Bilateral lower extremity edema likely secondary to fluid overload as above Left lower extremity with some mild erythema without significant warmth or tenderness INR is therapeutic. Low suspicion for DVT with therapeutic INR. Possible cellulitis versus venous stasis. Leg is without tenderness. With patient's history recurrent C. difficile will closely monitor and hold on an tibiotics. CAD S/P CABG Continue metoprolol succinate, rosuvastatin, Plavix Chronic atrial fibrillation Anticoagulated on Coumadin Current rate controlled INR: 2.2 Continue metoprolol succinate, Coumadin INR in a.m. Peripheral vascular disease H/O bilateral carotid endarterectomy Continue Plavix, rosuvastatin CKD IV Cr 3.46 today (baseline 3.5-4). Follows with Dr. Rodrigues. Patient not interested in HD at any point Monitor renal functions. Avoid nephrotoxic agents as able If renal functions worsening consider nephrology consult Chronic recurrent Clostridium difficile Denies any recent diarrhea Continue his home PO vancomycin Chronic anemia Hgb: 9.6. Baseline 10-12 Monitor DVT Prophylaxis On Coumadin. INR therapeutic. DNR/DNI as per discussion with patient and patient's Follows with Dr Malcolm for routine care Pt was seen and care coordinated with Dr Mcknight. See addendum I spent a total of 79 minutes reviewing notes, outpatient records, labs, medication, coordinating, documenting and providing care for this patient excluding time spent in the performance of separately billed services. History of Present Illness Chief Complaint: Leg edema Primary Care Provider: Lamin Malcolm MD Patient is 82-year-old male with PMH HTN, dyslipidemia, PVD, CAD, TIA, CKD IV, chronic atrial fibrillation, on chronic anticoagulation, chronic anemia, and others listed below presented to ER with complaint of lower extremity edema x several days. History obtained from patient, patient's , inpatient and outpatient chart review. Patient states last couple days legs have been feeling heavy and he feels that he has been having trouble ambulating. reports patient ambulates with walker at baseline. Denies any falls at home. states last couple days has noticed bilateral lower extremity edema seems worse and legs were firm instead of soft as usual. Patient denies any extremity pain. Patient's reports has been taking his medications as prescribed. does note last couple days patient seems to have some cough. She reports elizabeth graves has intermittent coughing all of winter season but seemed a bit increased past couple days. Cough is nonproductive. Denies any known fever or chills. Patient denies any shortness of breath or chest pain. denies any noted shortness of breath. Reports patient eats frozen [employer] breakfast sandwiches daily. states patient taking Bumex once daily. Was previously prescribed twice daily but states for months has been taking once daily. reports patient difficulty sleeping at night and often gets up frequently and walks around. Denies fever/chills, diaphoresis, N/V/D/C, REINOSO, dizziness, syncope, vision changes, neck pain, noted orthopnea, palpitations, sore throat, rhinorrhea, abdominal pain, paresthesias, rashes, urinary symptoms. Echo 05/05/2017: EF: 65-70%, moderate concentric LVH, severe biatrial enlargement, moderate aortic valve sclerosis without significant stenosis, mild mitral regurgitation, mild to moderate tricuspid regurgitation Allergies Allergy/AdvReac Type Severity Reaction Status Date / Time No Known Allergies Allergy Unknown Verified 04/20/23 16:58 Home Medications Medication Instructions Recorded Confirmed Type rosuvastatin 10 mg tablet (Crestor) 10 mg PO HS #30 tabs 09/20/18 04/20/23 Rx metoprolol succinate 25 mg 25 mg PO BID 02/26/19 04/20/23 History tablet,extended release 24 hr clopidogrel 75 mg tablet 75 mg PO QAM 09/08/21 04/20/23 History omeprazole 20 mg capsule,delayed 20 mg PO QAM 09/08/21 04/20/23 History release trazodone 50 mg tablet 50 mg PO HS 09/08/21 04/20/23 History vancomycin 125 mg capsule 125 mg PO QAM 09/08/21 04/20/23 History warfarin 2 mg tablet 4 mg PO 2XD 09/08/21 04/20/23 History multivitamin 1 tab PO DAILY 02/13/22 04/20/23 History Lactobacillus acidoph-L.bulgaricus 1 tab PO TIDM 02/17/22 04/20/23 History 1 million cell tablet potassium chloride 20 mEq 20 meq PO DAILY #90 tabs 07/16/22 04/20/23 Rx tablet,extended release(part/cryst) (Klor-Con M) bumetanide 1 mg tablet 1 mg PO DAILY 04/20/23 04/20/23 History levothyroxine 25 mcg tablet 25 mcg PO DAILY 04/20/23 04/20/23 History warfarin 2 mg tablet 2 mg PO [id number] 04/20/23 04/20/23 History Past Med/Surg History Medical History (Updated 04/20/23 @ 20:17 by Joby Rowe DO) Chronic atrial fibrillation Cerebrovascular disease "s/p stroke Nov 2016" PVD (peripheral vascular disease) 2000 - right femoral endarterectomy, left femoral stent 2015 - left common femoral endarterectomy, left common deep femoral endarterectomy, left common and external iliac stent and angioplasty, left femoral and popliteal stent and angioplasty CAD (coronary artery disease) s/p CABG x3 (2003) Acute prerenal failure Weakness generalized Fall Fall Sinusitis, acute maxillary Recurrent Clostridioides difficile infection Reason for chronic vanco therapy Carotid artery disease left (2007) right (2010) GERD (gastroesophageal reflux disease) Hyperlipidemia Diverticular disease Colitis due to Clostridioides difficile Chronic kidney disease, stage IV (severe) Follows with [facility] nephro (Dr. Rodrigues) Stroke 2017 treated with tPA - no residual effects Atrial fibrillation Follows Dr. Norman Wetzel Chronic diastolic (congestive) heart failure HTN (hypertension) Surgical History History of esophagogastroduodenoscopy (EGD) History of colonoscopy H/O vascular surgery 2000 - right femoral endarterectomy, left femoral stent 2016 - left common femoral endarterectomy, left common deep femoral endarterectomy, left common and external iliac stent and angioplasty, left femoral and popliteal stent and angioplasty History of CEA (carotid endarterectomy) left (2007) right (2010) S/P CABG x 3 Family History Other AAA (abdominal aortic aneurysm) Social History Smoking Status: Former smoker Tobacco Type: Cigarettes packs per day: 1.5; Second Hand Exposure: No; Do You Dip or Chew Tobacco: No; Hx Alcohol Use: No Hx Substance Use: No Preferred Language: Russian Communication Ability: Effective Lieutenant Fire Fighter Required: No Beliefs That Will Affect Care: None Current Living Situation: Spouse Feels Safe at Home: Yes Safety Concerns: Feels Safe At This Time Assistive Devices: Glasses, Hearing Aid - Bilateral and Walker Review of Systems Review of Systems: All systems reviewed & are unremarkable except as noted in HPI & below Physical Exam Physical Exam: General: no distress, WDWN Head: normocephalic, atraumatic Eyes: conjunctiva non-injected, anicteric ENT: Hard of hearing, normal inspection external ears, nose, mucous membranes moist Neck: supple, trachea midline, non-tender Lungs: no respiratory distress on current 2 L oxygen via nasal cannula, + rales bases bilaterally, no wheezing/rhonchi CV: Irregularly irregular, rate 72, 3+ pretibial edema Abd: normal BS, soft, non-tender Ext: no cyanosis, no calf tenderness. Bilateral lower extremities 3+ pitting edema, dry skin. LLE:+ Slight erythema from below knee to foot, positive dry skin, slight warmth, no tenderness to palpation, no discharge Neuro: Alert oriented to person, place, no focal deficits noted, normal affect Skin: warm, dry Results & Data Results & Data Vital Signs (Past 12 Hours) Vital Signs Temp Pulse Resp BP Pulse Ox O2 Del Method 04/20/23 15:39 71 04/20/23 15:22 36.0 C L 126 H 18 100/63 98 Room Air Laboratory Results Short CBC 04/20/23 Range/Units 15:50 WBC 7.77 (4.8-10.8) K/ul Hgb 9.6 L (14.0-18.0) g/dl Hct 32.3 L (42.0-52.0) % Plt Count 299 (130-400) K/uL BMP 04/20/23 15:50 Sodium 133 L Potassium 5.1 Chloride 101 Carbon Dioxide 24 BUN 61 H Creatinine 3.46 H Glucose 119 H Calcium 10.3 Liver Function 04/20/23 Range/Units 15:50 Total Bilirubin 0.7 (0.2-1.0) mg/dl AST 17 (13-39) U/L ALT 12 (7-52) U/L Alkaline Phosphatase 107 H (34-104) U/L Albumin 3.6 (3.4-5.0) gm/dl Urine 04/20/23 Range/Units 15:50 Urine Color Yellow Urine Appearance Clear (Clear) Urine pH 6.5 (4.5-7.5) Ur Specific [place] 1.008 (1.000-1.030) Urine Protein 3+ H (Negative) Urine Glucose (UA) Trace H (Negative) Diagnostic Findings Chest X-Ray 04/20/23 15:26 XR chest 1V portable HISTORY: Shortness of breath. CHF COMPARISON: Chest 02/18/2022 FINDINGS: Slightly rotated study. No pneumothorax. There are trace bilateral pleural effusions. The heart remains enlarged. There are poststernotomy changes. Progressive interstitial/vascular thickening consistent with mild pulmonary edema. No new focal lung consolidations. There is mild elevation of the left hemidiaphragm, unchanged. Vascular calcifications are noted. IMPRESSION: Cardiomegaly with interval development of mild interstitial pulmonary edema and trace bilateral pleural effusions ACT 112: Negative or not required by law. Electronically signed by: Ovi Vaz M.D. 04/20/2023 4:26 PM Supervising Physician Co-Signing Physician Notes Pt seen and examined by myself, Pavithra Mcknight MD on the day of service. Care was coordinated with Lilly Tyson PA-C. 82yoM presenting with concern for redness and swelling in the LLE. Hx of CHF. Hx of c diff on vancomycin Pt hard of hearing. at bedside. states that he has a Hx of repeated venous surgeries and grafts in the LLE. Concerned as she has noted increased swelling, firmness and more redness than usual. Pt on warfarin, per compliant at home, INR therapeutic. On exam, AAOx3 (did not know the hospital but knows the city), knows year and month. New oxygen requirement with NC in nares, resting comfortably with 2L at time of exam HR irregular breath sounds decreased, no appreciable fine crackles at time of exam Noted pitting edema of RLE>LLE, RLE with erythema Chest XRAY concerning for fluid overload with cardiomegaly, concern for interstitial pulm edema, trace bilat pleural effusions INR 2.2 BNP elevated Acute on chronic CHF, lower extremity edema- echo, IV Bumex 1mg BID, cardiology consult. Cellulitis- RLE, started on doxycycline, cautious or short term use as needed given pt's Hx of c diff and currently on po vancomycin. Low suspicion for DVT in RLE given pt on warfarin and INR therapeutic. Consider RLE doppler. Otherwise as above. I spent a total [id number] coordinating, documenting, and providing care for this patient excluding time spent in the performance of separately billed services
[2023-04-20] MEDS: FUROSEMIDE 40 MG/4 ML VIAL IV STA (17:12)
[2023-04-20 17:15] LABS: INR 2.2 (0.9-1.1); Prothrombin Time 23.1 Seconds (9.0-12.0)
[2023-04-20] MEDS ORDERED: ACETAMINOPHEN 325 MG TAB PO PRN (18:41)
[2023-04-20] MEDS ORDERED: ONDANSETRON INJ 2 MG/ML 2 ML VIAL IV PRN (18:41)
[2023-04-20] MEDS ORDERED: POLYETHYLENE (MIRALAX) 17 GM PACK PO PRN (18:41)
[2023-04-20] MEDS: METOPROLOL SUCC 25MG EXT REL TAB PO SCH (21:08)
[2023-04-20] MEDS: WARFARIN SOD 2 MG TAB PO SCH (21:09)
[2023-04-20] MEDS: ROSUVASTATIN CALCIUM 10 MG TAB PO SCH (21:09)
[2023-04-20] MEDS: traZODone HCL 50 MG TAB PO SCH (21:09)
[2023-04-21 04:53] LABS: Hematocrit (blood only) 28.5 % (42.0-52.0); Hemoglobin 8.5 g/dl (14.0-18.0); Mean Corpuscular Hemoglobin 24.9 pg (25.0-34.0); Mean Corpuscular Hgb Conc 29.8 g/dL (32.0-36.0); Mean Corpuscular Volume 83.6 fL (80.0-100.0); Mean Platelet Volume 8.7 fL (9.4-12.4); Platelet Count 282 K/uL (130-400); RDW Coefficient of Variation 17.2 % (11.5-14.5); RDW Standard Deviation 52.3 fL (36.4-46.3); Red Blood Count 3.41 M/uL (4.70-6.10); White Blood Count 9.39 K/ul (4.8-10.8)
[2023-04-21 05:01] LABS: BUN Creatinine Ratio 18.9 (10-20); Calcium 9.7 mg/dl (8.6-10.3); Creatinine Clr Calc Pharmacy 20.3 ml/min; Est GFR (African American) 17.5 ml/min; Est GFR (Non-African American) 15.1 ml/min; Potassium 4.4 mmol/L (3.5-5.1)
[2023-04-21 05:11] LABS: INR 2.5 (0.9-1.1); Prothrombin Time 25.6 Seconds (9.0-12.0)
[2023-04-21] MEDS: LEVOTHYROXINE SODIUM 25 MCG TABLET PO SCH (06:24)
[2023-04-21] MEDS ORDERED: NON-FORMULARY MEDICATION (Multivitamin Tablet) PO SCH (09:00)
[2023-04-21] MEDS: LACTOBACILLUS ACIDOPHILUS 1 GM PACK PO SCH (09:20)
[2023-04-21] MEDS: VANCOMYCIN HCL 125 MG/2.5ML SOLN PO SCH (09:20)
[2023-04-21] MEDS: CHERRY SYRUP 5 ML UDP PO SCH (09:21)
[2023-04-21] MEDS: BUMETANIDE 1 MG in SYRINGE 0 ML IV SCH (09:21)
[2023-04-21] MEDS: CLOPIDOGREL BISULFATE 75 MG TAB PO SCH (09:21)
[2023-04-21] MEDS: PANTOprazole 40 MG TAB PO SCH (09:21)
[2023-04-21] MEDS: POTASSIUM CHLORIDE CRTAB 20 MEQ TABCR PO SCH (09:22)
[2023-04-21] MEDS: MULTIVITAMIN TAB PO SCH (09:22)
--- NOTE | 2023-04-21 10:37 | Communication Note ---
Date of Service: April 20, 2023 Pt seen and examined by myself, Pavithra Mcknight MD on the day of service 04/20/23. Care was coordinated with Lilly Tyson PA-C. 82yoM presenting with concern for redness and swelling in the LLE. Hx of CHF. Hx of c diff on vancomycin Pt hard of hearing. at bedside. states that he has a Hx of repeated venous surgeries and grafts in the LLE. Concerned as she has noted increased swelling, firmness and more redness than usual. Pt on warfarin, per compliant at home, INR therapeutic. On exam, AAOx3 (did not know the hospital but knows the city), knows year and month. New oxygen requirement with NC in nares, resting comfortably with 2L at time of exam HR irregular breath sounds decreased, no appreciable fine crackles at time of exam Noted pitting edema of LLE>RLE, LLE with erythema Chest XRAY concerning for fluid overload with cardiomegaly, concern for interstitial pulm edema, trace bilat pleural effusions INR 2.2 BNP elevated Acute on chronic CHF, lower extremity edema- echo, IV Bumex 1mg BID, cardiology consult. Cellulitis- LLE, started on doxycycline, cautious or short term use as needed given pt's Hx of c diff and currently on po vancomycin. Low suspicion for DVT in LLE given pt on warfarin and INR therapeutic. Consider LLE doppler. Otherwise as in [facility] & [facility].
[2023-04-21] MEDS: DOXYCYCLINE HYCLATE 100 MG CAP PO SCH (11:39)
--- NOTE | 2023-04-21 12:31 | Hospitalist Progress Note ---
Date of Service April 21, 2023 Assessment & Plan (1) Acute on chronic diastolic (congestive) heart failure: (2) Acute hypoxic respiratory failure: (3) Leg edema: (4) Chronic kidney disease, stage IV (severe): (5) CAD (coronary artery disease): (6) PVD (peripheral vascular disease): (7) Cerebrovascular disease: (8) Chronic atrial fibrillation: (9) Anemia: (10) Recurrent Clostridioides difficile infection: Plan: Patient is an 82 yr male with H/O HTN, dyslipidemia, PVD, CAD, TIA, CKD IV, chronic atrial fibrillation, on chronic anticoagulation, chronic anemia, and others listed below presented to ER with complaint of lower extremity edema x several days. Acute on chronic diastolic heart failure Acute hypoxic respiratory failure --CXR: Cardiomegaly with interval development of mild interstitial pulmonary edema and trace bilateral pleural effusions --BNP: 400 --ECHO: Left ventricle systolic function is normal. EF 55 to 60%. Mild concentric LVH. Moderate size septal and anteroseptal wall motion abnormality with hypokinesis to akinesis of the segments. Severe biatrial enlargement. Severe focal calcification of the noncoronary aortic valve cusp. Attic stenosis is absent. Mild mitral and tricuspid regurgitation. Estimated systolic pulmonary pressure is 50 mmHg. Dilated IVC with normal respiratory variation suggest a right atrial pressure of 8 mmHg. -- Continue IV Bumex Monitor I's and O's, daily weight, volume status Monitor and replete electrolytes as needed Cardiology consulted Wean off of supplemental oxygen as able Elevated troponin Mild troponin elevation Likely demand ischemia secondary to volume overload and in setting of CKD Patient denies any chest pain EKG showed A-fib, nonspecific ST changes in inferior leads CAD S/P CABG Continue metoprolol succinate, rosuvastatin, Plavix Chronic atrial fibrillation Anticoagulated on Coumadin Rate controlled with metoprolol Monitor INR: 2.5 today Continue metoprolol succinate, Coumadin Peripheral vascular disease H/O bilateral carotid endarterectomy Continue Plavix, rosuvastatin CKD IV Baseline 3.5-4 Cr at baseline Follows with Dr. Rodrigues. Patient not interested in HD at any point Monitor renal function Avoid nephrotoxic agents as able Consider nephrology evaluation if needed Chronic recurrent Clostridium difficile Denies any recent diarrhea Continue home PO vancomycin Chronic anemia Baseline 10-12 Hemoglobin drop likely dilutional due to volume overload Monitor DVT Px Coumadin. INR therapeutic. CODE STATUS DNR/DNI Disposition PT OT prior to discharge Admission and Anticipated Discharge Date Admission Date: April 20, 2023 Subjective Patient is seen and examined at bedside Feels better when compared to yesterday Less dyspnea today Still has generalized weakness Denies any chest pain, nausea, vomiting, abdominal pain Discussed with patient's family at bedside No other complaints Review of Systems Review of Systems: All systems reviewed & are unremarkable except as noted in Subjective Physical Exam Physical Exam: Physical Exam: Vitals signs as noted above General Appearance:Moderately built and nourished, no apparent distress, Elderly Head: normocephalic, Atraumatic Eyes: normal inspection, EOMI Neck: supple, Trachea midline Respiratory/Chest: Normal breath sounds, bilateral basilar crackles, No accessory muscle use Cardiovascular: Irregularly irregular, No murmur Abdomen/GI:Soft, Non tender, Bowel sounds present Extremities/Musculoskeletal:normal inspection, 2+ LE edema, erythema, venous stasis changes Neurologic/Psych:AAOX3, grossly no focal neurological deficits, + decreased hearing Skin: normal color, warm Results & Data Results & Data Vital Signs (Past 12 Hours) Vital Signs Temp Pulse Pulse Resp BP Pulse Ox O2 Del Method 04/21/23 11:40 37.0 C 69 16 134/51 L 98 Nasal Cannula 04/21/23 09:21 36.8 C 72 16 110/44 L 94 Nasal Cannula 04/21/23 07:46 54 L 04/21/23 06:13 75 18 161/66 H 96 Nasal Cannula 04/21/23 05:00 94 Nasal Cannula 04/21/23 04:59 88 L Room Air 04/21/23 04:36 70 16 159/59 H 97 Room Air O2 Flow Rate 04/21/23 11:40 2 04/21/23 09:21 2 04/21/23 07:46 04/21/23 06:13 2 04/21/23 05:00 2 04/21/23 04:59 04/21/23 04:36 Laboratory Results Short CBC 04/20/23 04/21/23 Range/Units 15:50 03:53 WBC 7.77 9.39 (4.8-10.8) K/ul Hgb 9.6 L 8.5 L (14.0-18.0) g/dl Hct 32.3 L 28.5 L (42.0-52.0) % Plt Count 299 282 (130-400) K/uL BMP 04/20/23 04/21/23 15:50 03:53 Sodium 133 L 134 L Potassium 5.1 4.4 Chloride 101 100 Carbon Dioxide 24 26 BUN 61 H 67 H Creatinine 3.46 H 3.54 H Glucose 119 H 80 Calcium 10.3 9.7 Liver Function 04/20/23 Range/Units 15:50 Total Bilirubin 0.7 (0.2-1.0) mg/dl AST 17 (13-39) U/L ALT 12 (7-52) U/L Alkaline Phosphatase 107 H (34-104) U/L Albumin 3.6 (3.4-5.0) gm/dl Urine 04/20/23 Range/Units 15:50 Urine Color Yellow Urine Appearance Clear (Clear) Urine pH 6.5 (4.5-7.5) Ur Specific [place] 1.008 (1.000-1.030) Urine Protein 3+ H (Negative) Urine Glucose (UA) Trace H (Negative)
--- NOTE | 2023-04-21 12:51 | Electrocardiogram Report ---
Test Reason : Blood Pressure : / mmHG Vent. Rate : 069 BPM Atrial Rate : 000 BPM P-R Int : 000 ms QRS Dur : 104 ms QT Int : 438 ms P-R-T Axes : 000 -21 116 degrees QTc Int : 469 ms Atrial fibrillation Poor R wave progression, consider anterior ND vs. lead placement vs. LVH Abnormal ECG When compared with ECG of 17-FEB-2022 14:58, Questionable change in initial forces of Anterior leads Non-specific change in ST segment in Inferior leads T wave inversion no longer evident in Inferior leads T wave inversion now evident in Lateral leads Confirmed by Jose Velasco ([id number]) on 04/21/2023 12:51:30 PM Referred By: REFERRED SELF Confirmed By:Jose Velasco
--- OUTSIDE RECORDS SUMMARY | 2023-04-21 12:51 | External Medical Summary | Summary of Care ---
Author Name Unknown Organization [facility] Address [address] [place] [address] Phone [phone] Care Team Providers Care Asphalt Paver Name Role Phone Lamin Malcolm MD Primary Care Provider [phone] Encounter Details Date Type Department Care Team (Latest Contact Info) Description 02/18/2022 8:00 AM EST - 02/18/2022 11:59 PM [facility] Hospital Encounter Radiology Film File [address] [place] [address] Discharge Disposition: Home - Self Care Allergies No known active allergiesdocumented as of this encounter (statuses as of 03/08/2023) Medications Medication Sig Dispensed Refills Start Date End Date Status Multiple Vitamin (MULTI-VITAMIN DAILY) Tablet Take 1 Tablet by mouth in the morning. 0 Active Lactobacillus (LACTINEX) chewable tablet Take 1 Tablet by mouth in the morning and 1 Tablet at noon and 1 Tablet in the evening. Take with meals. 0 Active Potassium Chloride ER 20 MEQ TBCRIndications:[employer] Builder pancho diastolic heart failure (HCC) Take 1 Tab by mouth 2 times a day. 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 Longstanding persistent atrial fibrillation 07/22 Chronic atrial fibrillation 12/26/2018 Hyperparathyroidism, secondary renal 12/26/2018 Atherosclerosis of stebbins ar anupam of both lower extremities with intermittent claudication 12/26/2018 Asymptomatic bilateral carotid artery stenosis 0 05/22/2018 S/P carotid endarterectomy 05/22/2018 Hypertensive heart and kidne y disease with chronic diastolic congestive heart failure and stage 4 chronic kidney disease 04/11/2018 Cellulitis of left leg 10/09/2017 History of CVA (cerebrovascular accident) 2016 CKD (chronic kidney disease) stage 4, GFR 15-29 ml/min 08/05/2016 ASCVD (arteriosclerotic cardiovascular disease) 03/31/2011 Atrial fibrillation 03/31/2011 PVD (peripheral vascular disease) 03/31/2011 Obesity, BMI 33.74 01/05/11 01/05/2011 Tobacco use disorder 01/05/2011 Esophageal reflux 04/23/2009 Dyslipidemia, goal LDL below 100 02/04/2009 Overview: Per Lipid Taxonomy. Chronic diastolic heart failure 10/10/2008 Overview: Per Heart Failure Taxonomy Protocol. CEREBROVASCULAR DZ, POST-STROKE 08/08/2008 Overview: Added per CVA protocol #8 ADVANCE DIRECTIVE INFORMATION 04/19/2008 Overview: Yes, Patient instructed to provide copy of advance directive for provider to review and to be scanned into Electronic Medical Record Aortocoronary bypass status 08/30/2003 RENAL ARTERY ATHEROSCLER 08/30/2003 HTN, goal below 140/90 04/18/2003 Overview: Had for 10 years, no PR or CVA Secondary localized osteoarthrosis of shoulder r egion 04/18/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 kang. Biopsy proven. documented as of this encounter (statuses as of 03/08/2023) Resolved Problems Problem Noted Date Diagnosed Date Resolved Date Hx of Clostridium difficile infection 11/23/2016 04/11/2018 Clostridium difficile infection 08/05/2016 11/23/2016 S/P ablation of atrial flutter 08/03/2016 04/11/2018 Clostridium difficile infection 09/06/2015 08/03/2016 Postoperative wound infection 08/01/2015 08/03/2016 Septic shock 05/04/2015 08/03/2016 MANUEL (acute kidney injury) 05/04/2015 Accelerate Clinical Trial*[id number] 08/29/2012 03/13/2015 Overview: ACCELERATE STUDY. Project # [id number], RESIDENTIAL MORTGAGE UNDERWRITER: Norman Wetzel MD. CRC: NANCY Harper. SUMMARY: To test the hypothesis that Evacetrapib 130 mg, in comparison to placebo, reduces the risk of major adverse coronary events in high-risk vascular disease patients. CONTACTS: During normal business hours, contact study staff at ; after hours Bias Binding Folder via the [facility] hospital extruder operator vertical [phone]. 24-hour Global Study Helpline: [phone]. Lipid levels should not be ordered/obtained while this subject is in the Accelerate study. Lipids are being managed in a blinded fashion. If lipid levels are inadvertently obtained, it is important that test results are NOT provided to the patient, study doctor, helper coordinator, or other study team members. Restricted meds while in the study: 1) niacin > 250 mg, 2) gemfibrozil with a potent [id number]. 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 CONTUSION OF HAND-S 10/19/2004 08/04/19 17 Contusion of forearm 10/19/2004 017 Contusion of wrist 10/19/2004 7 Open wound of forearm 10/19/20042016 Heart Failure, type unspecified 02/19/2004 10/10/2008 Overview: Per Heart Failure Taxonomy Protocol. Atrial fibrillation 02/04/2004 03/31/19 12 Overview: S/P CARDIOVERSION BY DR. WETZEL care home current use of ant icoagulant therapy 02/04/2004 01/24/2008 Overview: ICD-10 update of inactive term Anticoagulation management encounter 02/04/2004 01/24/2008 ASCVD 05/21/2003 03/31/2011 Peripheral vascular disease 05/10/2003 03/31/2011 PROTEINURIA - FSGS 04/18/2003 7 Overview: followed by dr. kang. Biopsy proven. History of tobacco use 04/18/200308/03 Kidney disease, chronic, sta ge II (GFR 60-89 ml/min) 04/01/2011 documented as of this encounter (statuses as of 03/08/2023) Immunizations Name Administration Dates Next Due COVID-19 mRNA, LNP-s, No Pre serve, 2-Dose Series (Interviu Me) 12/03/2020,04/18/2020,03/28/2020 Covid-19, Mrna, Lnp-s, Pf, B ivalent, 30 Mcg, IM, 12 yrs and above (Pfizer) 02/03/2022 Pneumococcal Conjugate Vacc, 13 Valent (Prevnar) 12/10/2014 Pneumococcal Polysaccharide PPV23 (Pneumovax) 12/08/2005 Seasonal Influenza, PF, 6 M & above, IM , (FluLaval or Fluzone) 10/30/2019,11/27/2018,01/09/2018,11/23 Seasonal Influenza, Quadriva lent Hd (Fluzone Hd) 11/06/2021,12/10/2020 Seasonal Influenza, Quadriva lent, No Preserve, IM 12/23/2015,12/10/2014 Seasonal Influenza, Split, I IV3, With Preserve, Inj 01/11/2014,02/12/2013,12/15/2011,11/04,12/30/2009,11/05/2008,01/15/2008 ,01/10/2007,12/08/2005 TD, Preservative Free 10/13/2004 TDAP (age 10 and older)(Boostrix) 08/05/2014 Varicella Zoster Vaccine (Adult) 12/31/2011 Zoster Vaccine Recombinant (Shingrix) 08/23/2018 ,11/04/2017 documented as of this encounter Social History Tobacco Use Types Packs/Day Years Used Date Smoking Tobacco: Former Cigarettes 1.5 59 1 957 - 04/22/2015 Cigars Smokeless Tobacco: Never Alcohol Use Standard Drinks/Week Comments Yes 1 (1 standard drink = 0.6 oz pur e alcohol) wine with dinner each night PHQ-2 Answer Date Recorded PHQ Adult Total Score 0 08/05/2021 Hunger Vital Sign Answer Date Recorded Worried About Running Out of Food in the Last Ye ar Never true 08/21/2019 Ran Out of Food in the Last Year Never true 08/21/2019 Sex and Gender Information Value Date Recorded Sex Assigned at Not on file Gender Identity Not on file Sexual Orientation Not on file Job Start Date Occupation Industry Not on file Not on file Not on file documented as of this encounter Functional Status Functional Status Response Date of Assess ment Are you deaf or do you have serious difficulty h earing? No 12/08/2021 Are you blind or do you have serious difficulty seeing, even when wearing glasses? No 12/08/2021 Do you have serious difficul ty walking or climbing stairs? (5 years old or older) No 12/08/2021 Do you have difficulty dress ing or bathing? (5 years old or older) No 12/08/2021 Because of a physical, menta l, or emotional condition, do you have difficulty doing errands alone such as visiting a doctor s office or shopping? (15 years old or older) No 12/09/19 Cognitive Status Response Date of Assessm ent Because of a physical, menta l, or emotional condition, do you have serious difficulty concentrating, remembering, or making decisions? (5 years old or older) No 12/08/2021 documented as of this encounter Plan of Treatment Upcoming Encounters Date Type Department Care Team (Late st Contact Info) Description 04/07/2023 8:00 AM EST Laboratory Lab Mobile Phlebotomy [facility] [address] [place] [address] [facility], [facility] Mobile Home Draw [address] [place] [address] 04/08/2023 6:00 PM EST Anticoagulation Pharmacy Call Center [address] [place] [address] [facility] [address] [place] [address] 04/14/2023 1:30 PM EST Office Visit Cardiology, [facility] [address] [place] [address] Norman Wetzel MD [address] [facility] [place] [address] 06/27/2023 2:00 PM EDT Office Visit Family [facility] [address] [place] [id number] Lamin Malcolm MD [address] [place], [place] [id number] Health Maintenance Due Date Last Done Comments Depression Screening 08/05/2022 08/05/2021 COVID-19 Vaccine (5 - 2022-2 4 season) 2022 02/03/2022, 12/03/2020, 04/18/2020, Additional history exists Influenza Vaccine (FLU shot) (#1) 2022 11/06/2021, 12/10/2020, 10/30/2019, Additional history exists TSH 02/26/2024 02/25/2023, 05/0 03/2012, 08/31/2011, Additional history exists Zoster Vaccines Completed 08/23/2018, 10/22, 12/31/2011 documented as of this encounter Medical Devices Implanted Type Area Supervisor Boarding Device Identifier Shelf Expiration Date Model / Serial / Lot Stent Complete Wi 6x60 - [id number] Implanted:Qty: 1 on 04/25/2015 by Miguel Richardson MD at OR [facility] Left: Femoral Artery [employer] : VASCULAR 01/26/2017 [id number] / / [id number] Cement Bone Lv G 1119-140-01 - [id number] Implanted:Qty: 1 on 05/04/2015 by Mychal Tovar MD at OR [facility] Left: Groin [employer] 11/20/20171119-14 0- / / [id number] Cement Bone Lv G 1119-140-01 - [id number] Implanted:Qty: 1 on 05/06/2015 by Miguel Richardson MD at OR [facility] Left: Groin [employer] 08/20/20181119-14 0- / / [id number] Description:5 beads right gr oin Duraclip 16mm Xlg Repostn - [id number] Implanted:Qty: 4 on 12/08/2021 by Nicky Ferrer MD at OR [facility] [employer] 03/03/2024 [id number] / / [id number] documented as of this encounter Procedures Procedure Name Priority Date/Time Associated Diagnosis Comments RADIOLOGY EXAM - CT (IMAGES ONLY, NO REPORT) Routine 02/18/2022 8:00 AM EST documented in this encounter Results * RADIOLOGY EXAM - CT (IMAGES ONLY, NO REPORT) (02/18/2022 8:00 AM EST) 02/18/2022 7:58 AM EST Narrative Scheduling, Silent - 03/07/2023 4:33 PM EST This is an imaging study not interpreted or resulted by a [email or web address] contracted [facility]ologist. Lamin Malcolm MD RAD CT documented in this encounter Advance Directives Documents on File Type Date Recorded Patient Professional Advisor Expl anation Advance Directives and Livin g Will 07/14/2015 LIVING WILL Advance Directives and Livin g Will 07/14/2015 ADVANCE DIRECTIVE Power of Chest Pain Coordinator 07/14/2015 POWER OF A TTORNEY Latest Code Status on File Code Status Date Activated Date Inactivated Comments No Code 12/08/2021 3:49 PM 12/09/2021 7:09 PM Thi s order reflects the patients wishes and were consensually agreed upon. Question Answer Comments Discussion of Advance Directives occurred with: Patient Code Status History Code Status Date Activated Date Inactivated Comments No Code 10/09/2017 9:17 PM 10/11/2017 7:24 PM This order reflects the patients wishes and were consensually agreed upon. Question Answer Comments Discussion of Advance Directives occurred with: Patient/Family Does the patient have a Living Will? Yes, in chart and reviewed as current Does the patient have Health Care Power of Chest Pain Coordinator? Yes, in chart and reviewed as current Full Code 07/27/2015 12:46 AM 08/02/2015 5:42 PM This order reflects the patients wishes and were consensually agreed upon. Full Code 07/09/2015 1:41 PM 07/10/2015 5:03 PM Question Answer Comments Discussion of Advance Directives occurred with: Not Discussed Does the patient have a Living Will? No Does the patient have Health Care Power of Chest Pain Coordinator? No Full Code 05/05/2015 1:09 AM 05/16/2015 3:48 PM This order reflects the patients wishes and were consensually agreed upon. Question Answer Comments Discussion of Advance Directives occurred with: Not Discussed Does the patient have a Living Will? No Does the patient have Health Care Power of Chest Pain Coordinator? No Care Teams Asphalt Paver Relationship Specialty Start Date End Date Lamin Malcolm MD [address] [place] [address] PCP - General Family Medicine 04/10/18 documented as of this encounter
--- OUTSIDE RECORDS SUMMARY | 2023-04-21 12:51 | External Medical Summary | Summary of Care ---
Author Name Unknown Organization [facility] Address [address] [place] [address] Phone [phone] Care Team Providers Care U.S. Representative Name Role Phone Lamin Malcolm MD Primary Care Provider [phone] Reason for Visit * Reason Comments Dosage Adjustment Via Phone (anticoag Cl inic) Encounter Details Date Type Department Care Team (Latest Contact Info) Description 04/08/2023 6:00 PM [facility] Anticoagulation Pharmacy Call Center [phone] [place] [address] [facility] [address] [place] [address] Anticoagulation management encounter* Allergies No known active allergiesdocumented as of this encounter (statuses as of 04/08/2023) Medications Medication Sig Dispensed Refills Start Date End Date Status Multiple Vitamin (MULTI-VITAMIN DAILY) Tablet Take 1 Tablet by mouth in the morning. 0 Active Lactobacillus (LACTINEX) chewable tablet Take 1 Tablet by mouth in the morning and 1 Tablet at noon and 1 Tablet in the evening. Take with meals. 0 Active Potassium Chloride ER 20 MEQ TBCRIndications:Head Soft Sugar Operator pancho diastolic heart failure (HCC) Take 1 Tab by mouth 2 times a day. 60 Tab 5 05/13/2017 Active Additional Information Patient taking differently:20 mEq OralDaily(AM), Informant: Spouse, Reported on 03/03/2022 Metoprolol Succinate ER 25 MG Oral Tablet Extended Release 24 Hour (toPROL XL)Indications:Chron ic atrial fibrillation (HCC),Chronic diastolic heart failure (HCC),Persistent atrial fibrillation (HCC) TAKE 1 TABLET TWICE A DAY 180 Tablet 3 05/25/2022 Active Omeprazole 20 MG Oral Capsule Delayed Release (PriLOSEC) Take 1 Capsule by mouth in the morning. 1 hour before the first meal of the day.. 90 Capsule 3 08/18/2022 Active Vitamin D3 Complete Oral Tablet Take by mouth. 0 Active Clopidogrel Bisulfate 75 MG Oral Tablet (pLAVix) TAKE 1 TABLET DAILY 90 Tablet 1 11/22/2022 Active Bumetanide 1 MG Oral Tablet (Bumex)Indications:C hronic diastolic heart failure (HCC) TAKE 1 TABLET TWICE A DAY 180 Tablet 1 12/16/2022 Active traZODone HCl 50 MG Oral Tablet (Desyrel)Indications :Sleep disorder TAKE 2 TABLETS AT BEDTIME 180 Tablet 0 01/24/2023 Active Vancomycin HCl 125 MG Oral Capsule (Vancocin)Indication s:Clostridium difficile infection TAKE 1 CAPSULE IN THE MORNING 90 Capsule 3 01/28/2023 Active Rosuvastatin Calcium 10 MG Oral Tablet (Crestor)Indications :ASCVD (arteriosclerotic cardiovascular disease) TAKE 1 TABLET DAILY 90 Tablet 1 02/01/2023 Active Warfarin Sodium 2 MG Oral Tablet (Coumadin)Indication s:Atrial fibrillation, unspecified type (HCC) TAKE 2 TABLETS (4 MG) EVERY TUESDAY, TUESDAY, AND TUESDAY AND 1 TABLET (2MG) ALL OTHER DAYS 130 Tablet 3 02/07/2023 Active Levothyroxine Sodium 25 MCG Oral Tablet (Levoxyl)Indications :Acquired hypothyroidism Take 1 Tablet by mouth in the morning. (at least 30 min prior to breakfast or other meds). 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 kang. Biopsy proven. documented as of this encounter (statuses as of 04/08/2023) Resolved Problems Problem Noted Date Diagnosed Date Resolved Date Hx of Clostridium difficile infection 11/23/2016 04/11/2018 Clostridium difficile infection 08/05/2016 11/23/2016 S/P ablation of atrial flutter 08/03/2016 04/11/2018 Clostridium difficile infection 09/06/2015 08/03/2016 Postoperative wound infection 08/01/2015 08/03/2016 Septic shock 05/04/2015 08/03/2016 MANUEL (acute kidney injury) 05/04/2015 Accelerate Clinical Trial*[id number] 08/29/2012 03/13/2015 Overview: ACCELERATE STUDY. Project # [id number], SHAPER OPERATOR: Norman Wetzel MD. CRC: NANCY Harper. SUMMARY: To test the hypothesis that Evacetrapib 130 mg, in comparison to placebo, reduces the risk of major adverse coronary events in high-risk vascular disease patients. CONTACTS: During normal business hours, contact study staff at ; after hours Administrative Support Specialist via the [facility] do all operator [phone]. 24-hour Global Study Helpline: [phone]. Lipid levels should not be ordered/obtained while this subject is in the Accelerate study. Lipids are being managed in a blinded fashion. If lipid levels are inadvertently obtained, it is important that test results are NOT provided to the patient, study doctor, interior design coordinator, or other study team members. Restricted meds while in the study: 1) niacin > 250 mg, 2) gemfibrozil with a potent [id number]. Osteoporosis 08/27/2011 08/03/2016 Double vision 06/15/2011 08/03/2016 [...] 12 Overview: S/P CARDIOVERSION BY DR. 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 kang. Biopsy proven. History of tobacco use 04/18/200308/03 Kidney disease, chronic, sta ge II (GFR 60-89 ml/min) 04/01/2011 documented as of this encounter (statuses as of 04/08/2023) Immunizations Name Administration Dates Next Due COVID-19 mRNA, LNP-s, No Pre serve, 2-Dose Series ([facility] [facility] [employer]) 12/03/2020,04/18/2020,03/28/2020 Covid-19, Mrna, Lnp-s, Pf, B ivalent, 30 Mcg, IM, 12 yrs and above ([facility] [facility]) 02/03/2022 Pneumococcal Conjugate Vacc, 13 Valent (Prevnar) [...] (15 years old or older) No 12/09/19 22 Cognitive Status Response Date of Assessm ent Because of a physical, menta l, or emotional condition, do you have serious difficulty concentrating, remembering, or making decisions? (5 years old or older) No 12/08/2021 documented as of this encounter Progress Notes * Angelica Maldonado, journeyman pipefitter - 04/08/2023 9:48 AM EST Patient Phone Numbers Spoke with patient's spouse. Note from [facility] yesterday states address needed updated, as it was only listed as a PO Box for patient and they had no idea where to go to draw PT/INR. Address updated in chart, please schedule patient for PT/INR draw on Tuesday04/11/23 with [facility]. [facility] will follow up Tuesday04/12/23 with dosing directions. Thank you, Angelica Maldonado Physician Assistant Primary Care [facility] 04/08/2023,9:49 AM documented in this encounter Plan of Treatment Upcoming Encounters Date Type Department Care Team (Late st Contact Info) Description 04/11/2023 10:50 AM EST Laboratory Lab Mobile Phlebotomy [facility] [address] [place] [address] [facility] [place] Draw [address] [place] [address] 04/12/2023 6:00 AM EST Anticoagulation Pharmacy Call Center WB [address] [facility] [place] [address] [facility] [address] [facility] [place] [address] 06/27/2023 2:00 PM EDT Office Visit [address] [address] [facility]amin [facility] [address] [facility] [address] Health Maintenance Due Date Last Done Comments Depression Screening 08/05/2022 08/05/2021 COVID-19 Vaccine (5 - 2022-2 4 season) 2022 02/03/2022, 12/03/2020, 04/18/2020, Additional history exists Influenza Vaccine (FLU shot) (#1) 2022 11/06/2021, 12/10/2020, 10/30/2019, Additional history exists TSH 02/26/2024 02/25/2023, 03/2012, 08/31/2011, Additional history exists Zoster Vaccines Completed 08/23/2018, 10/22, 12/31/2011 documented as of this encounter Medical Devices Implanted Type Area Company Manager Device Identifier Shelf Expiration Date Model / Serial / Lot Stent Complete Sc 8x40 - [id number] Implanted:Qty: 1 on 04/25/2015 by Miguel Richardson MD [place] [facility] [place]: Iliac [employer] : VASCULAR 12/31/2016 [id number] / / [id number] Stent Complete Sc 8x100 - [id number] Implanted:Qty: 1 on 04/25/2015 by Miguel Richardson MD [place] [facility] [place]: Iliac [employer] : VASCULAR 12/11/2016 [id number] / / [id number] Stent Assurant [id number] - [id number] Implanted:Qty: 1 on 04/25/2015 by Miguel Richardson MD [place] [facility] [place]: Iliac [employer] : VASCULAR 09/01/2016 [id number] / / [id number] Stent Complete Sc 5x150 - [id number] Implanted:Qty: 1 on 04/25/2015 by Miguel Richardson MD [place] [facility] [place]: Femoral Artery [employer] : VASCULAR 02/10/2017 [id number] / / [id number] Stent Complete Sc 6x150 - [id number] Implanted:Qty: 1 on 04/25/2015 by Miguel Richardson MD [place] [facility] [place]: Femoral Artery [employer] : VASCULAR 08/18/2016 [id number] / / [id number] Stent Complete Sc 6x150 - [id number] Implanted:Qty: 1 on 04/25/2015 by Miguel Richardson MD at [place] [facility] [place]: Femoral Artery [employer] : VASCULAR 08/20/2016 [id number] / / [id number] Stent Complete De 6x60 - [id number] Implanted:Qty: 1 on 04/25/2015 by Miguel Richardson MD at [place] [facility] [place]: Femoral Artery [employer] : VASCULAR 01/26/2017 [id number] / / [id number] Cement Bone Lv G 1119-140-01 - [id number] Implanted:Qty: 1 on 05/04/2015 by Mychal Tovar MD at [place] [facility] [place]: Groin [employer] 11/20/20171119-14 0- / / [id number] Cement Bone Lv G 1119-140-01 - [id number] Implanted:Qty: 1 on 05/06/2015 by Miguel Richardson MD at [place] [facility] [place]: Groin [employer] 08/20/2018-1119-14 0-01 / / [id number] Description:5 beads right gr oin Clip Quick 2.8mm 230cm - [id number] Implanted:Qty: 3 on 12/08/2021 by Nicky Ferrer MD at OR [facility] [employer] 03/23/2024 [id number] / / [id number] Duraclip 16mm Xlg Repostn - [id number] Implanted:Qty: 2 on 12/08/2021 by Nicky Ferrer MD at OR [facility] [employer] ISSA 04/07/2023 [id number] / / [id number] Duraclip 16mm Xlg Repostn - [id number] Implanted:Qty: 4 on 12/08/2021 by Nicky Ferrer MD at OR [facility] [employer] 03/03/2024 [id number] / / [id number] documented as of this encounter Visit Diagnoses Diagnosis Anticoagulation management encounter- Primary Encounter for therapeutic drug monitoring documented in this encounter Advance Directives Documents on File Type Date Recorded Patient Polarity Tester Expl anation Advance Directives and Livin g Will 07/14/2015 LIVING WILL Advance Directives and Livin g Will 07/14/2015 ADVANCE DIRECTIVE Power of County Supervisor 07/14/2015 POWER OF A TTORNEY Latest Code [...] the patient have Health Care Power of County Supervisor? Yes, in chart and reviewed as current Full Code 07/27/2015 12:46 AM 08/02/2015 5:42 PM This order reflects the patients wishes and were consensually agreed upon. Full Code 07/09/2015 1:41 PM 07/10/2015 5:03 PM Question Answer Comments Discussion of Advance Directives occurred with: Not Discussed Does the patient have a Living Will? No Does the patient have Health Care Power of County Supervisor? No Full Code 05/05/2015 1:09 AM 05/16/2015 3:48 PM This order reflects the patients wishes and were consensually agreed upon. Question Answer Comments Discussion of Advance Directives occurred with: Not Discussed Does the patient have a Living Will? No Does the patient have Health Care Power of County Supervisor? No Care Teams U.S. Representative Relationship Specialty Start Date End Date Lamin Malcolm MD [address] [facility] [place] [address] PCP - General Family Medicine 04/10/18 documented as of this encounter
--- OUTSIDE RECORDS SUMMARY | 2023-04-21 12:51 | External Medical Summary ---
Author Name Unknown Address Unknown Organization K0G:[facility] [address] [place] [address] Laboratory Report Ordering Provider Test Date Status LALO CAIN 04/11/2023 08:10:00 Final Warfarin Therapy
INR: 2 .0-3.0 conventional anticoagulation
INR: 2.5- 3.5 high intensity anticoagulation Observation Date Value Abnormality Reference (Units ) Status PT 04/11/2023 08:10:00 21.4 Above high normal 11 .6-15.2 (seconds) Final INR 04/11/2023 08:10:00 1.8 Above high normal 0. 8-1.2 Final Performing Location [facility] [address] [place] [address]
--- OUTSIDE RECORDS SUMMARY | 2023-04-21 12:51 | External Medical Summary | Summary of Care ---
Author Name Unknown Organization [facility] Address [address] [place] [address] Phone [phone] Care Team Providers Care Hat Braider Name Role Phone Lamin Malcolm MD Primary Care Provider [phone] Encounter Details Date Type Department Care Team (Late st Contact Info) Description 02/27/2023 Telephone Family Practice [facility] [address] [place] [address] Lamin Malcolm MD [facility] [place] [address] Allergies No known active allergiesdocumented as of this encounter (statuses as of 02/28/2023) Medications Medication Sig Dispensed Refills Start Date End Date Status Multiple Vitamin (MULTI-VITAMIN DAILY) Tablet Take 1 Tablet by mouth in the morning. 0 Active Lactobacillus (LACTINEX) chewable tablet Take 1 Tablet by mouth in the morning and 1 Tablet at noon and 1 Tablet in the evening. Take with meals. 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 kang. Biopsy proven. documented as of this encounter (statuses as of 02/28/2023) Resolved Problems Problem Noted Date Diagnosed Date Resolved Date Hx of Clostridium difficile infection 11/23/2016 04/11/2018 Clostridium difficile infection 08/05/2016 11/23/2016 S/P ablation of atrial flutter 08/03/2016 04/11/2018 Clostridium difficile infection 09/06/2015 08/03/2016 Postoperative wound infection 08/01/2015 08/03/2016 Septic shock 05/04/2015 08/03/2016 MANUEL (acute kidney injury) 05/04/2015 Accelerate Clinical Trial*[id number] 08/29/2012 03/13/2015 Overview: ACCELERATE STUDY. Project # [id number], RESULTS TECHNICIAN: Norman Wetzel MD. CRC: NANCY Harper. SUMMARY: To test the hypothesis that Evacetrapib 130 mg, in comparison to placebo, reduces the risk of major adverse coronary events in high-risk vascular disease patients. CONTACTS: During normal business hours, contact study staff at ; after hours Analyst Programmer via the [facility] yarding and folding machine operator [phone]. 24-hour Global Study Helpline: [phone]. Lipid levels should not be ordered/obtained while this subject is in the Accelerate study. Lipids are being managed in a blinded fashion. If lipid levels are inadvertently obtained, it is important that test results are NOT provided to the patient, study doctor, clinical resource coordinator, or other study team members. Restricted meds while in the study: 1) niacin > 250 mg, 2) gemfibrozil with a potent [id number]-telcsmoni. Osteoporosis 08/27/2011 08/03/2016 Double vision 06/15/2011 08/03/2016 [...] 12 Overview: S/P CARDIOVERSION BY DR. 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 kang. Biopsy proven. History of tobacco use 04/18/200308/03 Kidney disease, chronic, sta ge II (GFR 60-89 ml/min) 04/01/2011 documented as of this encounter (statuses as of 02/28/2023) Immunizations Name Administration Dates Next Due COVID-19 mRNA, LNP-s, No Pre serve, 2-Dose Series ([employer]) 12/03/2020,04/18/2020,03/28/2020 Covid-19, Mrna, Lnp-s, Pf, B ivalent, 30 Mcg, IM, 12 yrs and above ([employer]) 02/03/2022 Pneumococcal Conjugate Vacc, 13 Valent (Prevnar) 12/10/2014 Pneumococcal Polysaccharide PPV23 (Pneumovax) 12/08/2005 Seasonal Influenza, PF, 6 M & above, IM , (FluLaval or Fluzone) 10/30/2019,11/27/2018,01/09/2018,11/23 Seasonal Influenza, Quadriva lent Hd (Fluzone Hd) 11/06/2021,12/10/2020 Seasonal Influenza, Quadriva lent, No Preserve, IM 12/23/2015,12/10/2014 Seasonal Influenza, Split, I IV3, With Preserve, Inj 01/11/2014,02/12/2013,12/15/2011,11/04,12/30/2009,11/05/2008,01/15/2008 ,01/10/2007,12/08/2005,12/31/2004 TD - Tetanus/Diptheria (ADULT) 10/13/2004 TD, Preservative Free 10/13/2004 TDAP (age 10 [...] No 12/08/2021 documented as of this encounter Miscellaneous Notes * Telephone Encounter - Mahi Quinn LPN - 02/28/2023 2:57 PM EST Patient's aware and verbalized understanding * Telephone Encounter - Lamin Malcolm MD - 02/27/2023 6:36 PM EST Notify Pt or : the blood work done in office shows slightly low thyroid. Not low enough to explain memory loss but it needs treated. Start Levothyroxine 25mcg daily with repeat TSH in 2 months. Need to take Levothyroxine at least 30 minutes before and after any other medication or food. documented in this encounter Plan of Treatment Upcoming Encounters Date Type Department Care Team (Late st Contact Info) Description 04/07/2023 8:00 AM EST Laboratory Lab [facility]bot[facility] [address] [place] [address] [facility] [place] Mobile Home Draw [address] [place] [address] 04/08/2023 6:00 PM EST Anticoagulation Pharmacy Call Center [address] [place] [address] [facility] [address] [place] [address] 04/14/2023 1:30 PM EST [address] [address] Norman Wetzel MD [address] [place] [address] 06/27/2023 2:00 PM EDT Office Visit [facility] [address] [place] [phone] Lamin Malcolm MD [address] [place], [place] [address] Scheduled Orders Name Type Priority Associated Diagnoses Orde r Schedule TSH WITH FREE T4 IF INDICATED Lab Routine Acquired hypothyroidism Expected: 02/27/2023 (Approximate), Expires: 02/27/2024 Health Maintenance Due Date Last Done Comments Depression Screening 08/05/2022 08/05/2021 COVID-19 Vaccine (5 - 2022-2 4 season) 2022 02/03/2022, 12/03/2020, 04/18/2020, Additional history exists Influenza Vaccine (FLU shot) (#1) 2022 11/06/2021, 12/10/2020, 10/30/2019, Additional history exists TSH 02/26/2024 02/25/2023, 05/0 03/2012, 08/31/2011, Additional history exists Zoster Vaccines Completed 08/23/2018, 10/22, 12/31/2011 documented as of this encounter Medical Devices Implanted Type Area Cloth Hauler Device Identifier Shelf Expiration Date Model / Serial / Lot Stent Complete [place] 6x60 - [id number] Implanted:Qty: 1 on 04/25/2015 by Miguel Richardson MD [place] [facility] Left: Femoral Artery [employer] : VASCULAR 01/26/2017 [id number] / / [id number] Cement Bone Lv G 1119-140-01 - [id number] Implanted:Qty: 1 on 05/04/2015 by Mychal Tovar MD at [place] [facility] Left: Groin [employer] 11/20/2017 00-1119-14 0- / / [id number] Cement Bone Lv G 1119-140-01 - [id number] Implanted:Qty: 1 on 05/06/2015 by Miguel Richardson MD [place] [facility] Left: Vam[employer] 08/20/2018 00-1119-14 0- / / [id number] Description:5 beads right gr oin Duraclip 16mm Xlg Repostn - [id number] Implanted:Qty: 4 on 12/08/2021 by Nicky Ferrer MD at OR [facility] [employer] 03/03/2024 [id number] / / [id number] documented as of this encounter Visit Diagnoses Diagnosis Acquired hypothyroidism- Primary Unspecified hypothyroidism documented in this encounter Advance Directives Documents on File Type Date Recorded Patient Septic Tank Service Technician Expl anation Advance Directives and Livin g Will 07/14/2015 LIVING WILL Advance Directives and Livin g Will 07/14/2015 ADVANCE DIRECTIVE Power of Advertising Sales Representative 07/14/2015 POWER OF A TTORNEY Latest Code [...] the patient have Health Care Power of Advertising Sales Representative? Yes, in chart and reviewed as current Full Code 07/27/2015 12:46 AM 08/02/2015 5:42 PM This order reflects the patients wishes and were consensually agreed upon. Full Code 07/09/2015 1:41 PM 07/10/2015 5:03 PM Question Answer Comments Discussion of Advance Directives occurred with: Not Discussed Does the patient have a Living Will? No Does the patient have Health Care Power of Advertising Sales Representative? No Full Code 05/05/2015 1:09 AM 05/16/2015 3:48 PM This order reflects the patients wishes and were consensually agreed upon. Question Answer Comments Discussion of Advance Directives occurred with: Not Discussed Does the patient have a Living Will? No Does the patient have Health Care Power of Advertising Sales Representative? No Care Teams Hat Braider Relationship Specialty Start Date End Date Lamin Malcolm MD [address] [place] [address] PCP - General Family Medicine 04/10/18 documented as of this encounter
--- OUTSIDE RECORDS SUMMARY | 2023-04-21 12:51 | External Medical Summary | Summary of Care ---
Author Name Unknown Organization [facility] Address [address] [place] [address] Phone [phone] Care Team Providers Care Order Processing Clerk Name Role Phone Lamin Malcolm MD Primary Care Provider [phone] Reason for Visit * Reason Comments Dosage Adjustment Via Phone (anticoag Cl inic) Encounter Details Date Type Department Care Team (Latest Contact Info) Description 04/12/2023 6:00 AM EST Anticoagulation Pharmacy Call Center [address] [place] [address] [facility] [address] [place] [address] Atrial fibrillation, unspecified type (HCC)*; History of CVA (cerebrovascular accident); CEREBROVASCULAR DZ, POST-STROKE Allergies No known active allergiesdocumented as of this encounter (statuses as of 04/12/2023) Medications Medication Sig Dispensed Refills Start Date End Date Status Multiple Vitamin (MULTI-VITAMIN DAILY) Tablet Take 1 Tablet by mouth in the morning. 0 Active Lactobacillus (LACTINEX) chewable tablet Take 1 Tablet by mouth in the morning and 1 Tablet at noon and 1 Tablet in the evening. Take with meals. 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 kang. Biopsy proven. documented as of this encounter (statuses as of 04/12/2023) Resolved Problems Problem Noted Date Diagnosed Date Resolved Date Hx of Clostridium difficile infection 11/23/2016 04/11/2018 Clostridium difficile infection 08/05/2016 11/23/2016 S/P ablation of atrial flutter 08/03/2016 04/11/2018 Clostridium difficile infection 09/06/2015 08/03/2016 Postoperative wound infection 08/01/2015 08/03/2016 Septic shock 05/04/2015 08/03/2016 MANUEL (acute kidney injury) 05/04/2015 Accelerate Clinical Trial*[id number] 08/29/2012 03/13/2015 Overview: ACCELERATE STUDY. Project # [id number], SPECIAL EDUCATION TUTOR: Norman Wetzel MD. CRC: NANCY Harper. SUMMARY: To test the hypothesis that Evacetrapib 130 mg, in comparison to placebo, reduces the risk of major adverse coronary events in high-risk vascular disease patients. CONTACTS: During normal business hours, contact study staff at ; after hours Vp Human Resources via the [facility] hospital winding operator [phone]. 24-hour Global Study Helpline: [phone]. Lipid levels should not be ordered/obtained while this subject is in the Accelerate study. Lipids are being managed in a blinded fashion. If lipid levels are inadvertently obtained, it is important that test results are NOT provided to the patient, study doctor, buildings and grounds coordinator, or other study team members. Restricted meds while in the study: 1) niacin > 250 mg, 2) gemfibrozil with a potent [id number]. Osteoporosis 08/27/2011 08/03/2016 Double vision 06/15/2011 08/03/2016 [...] 03/31/19 12 Overview: S/P CARDIOVERSION BY DR. 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 kang. Biopsy proven. History of tobacco use 04/18/200308/03 Kidney disease, chronic, sta ge II (GFR 60-89 ml/min) 04/01/2011 documented as of this encounter (statuses as of 04/12/2023) Immunizations Name Administration Dates Next Due COVID-19 mRNA, LNP-s, No Pre serve, 2-Dose Series (Superpedestrian) 12/03/2020,04/18/2020,03/28/2020 Covid-19, Mrna, Lnp-s, Pf, B ivalent, [...] Used Date Smoking Tobacco: Former Cigarettes 1.5 59.2 1 957 - 04/22/2015 Cigars Smokeless Tobacco: [...] as of this encounter Progress Notes * Teena Martin PHARM Tech - 04/12/2023 10:10 AM EST Contacts Type Contact Phone/Fax 04/12/2023 10:03 AM EST Phone (Outgoing) Gabrielle Mcmahan (Emergency Contact) [phone] Spoke with Gabrielle. Subjective Patient Findings Positives: Missed doses (04/08 - pt missed 4mg.) Negatives: Signs/symptoms of bleeding, Change in health, Change in activity, Upcoming invasive procedure, Extra doses, Change in medications, Change in diet/appetite, Bruising Comments: Message sent to [facility] joe Christine aware of message below: [10:06 AM] Teena Martin - missed dose on 04/08 4mg due to a nose bleed. continue with current plan? [10:08 AM] Cara Tello yes but call if any return bleeding Advised patient to contact Anticoagulation Clinic if any unusual bruising or bleeding, recent illness, changes in medication, or questions/concerns. PT/INR results, Coumadin dose instructions, and next PT/INR date communicated as noted by Pharmacist: Yes JOHNATHON Lemus 04/12/2023, 10:10 AM * aCra Tello [facility] - 04/12/2023 8:49 AM EST Images from the original note were not included. Coumadin Clinic (region specific) Objective Current Warfarin Dose As of 04/12/2023 Warfarin maintenance plan: 4 mg (2 mg x 2) every Mon, Fri; 2 mg (2 mg x 1) all other days INR Result As of 04/12/2023 INR goal: 2.0-3.0 INR used for dosin.8 (04/11/2023) Assessment & Plan Warfarin Plan As of 04/12/2023 Full warfarin instructions: 04/12: 4 mg; Otherwise 4 mg every Mon, Fri; 2 mg all other days Next INR check: 05/23/2023 Repeat PT/INR in 6 week(s) Weekly dose: not changed Additional Dosing Information: Description GML Tech to contact patient with dose instructions as noted. Cara Tello RPh 04/12/2023, 8:49 AM documented in this encounter Plan of Treatment Upcoming Encounters Date Type Department Care Team (Late st Contact Info) Description 06/27/2023 2:00 PM EDT Office Visit [facility] [address] [place] [address] Lamin Malcolm MD [address] [place] [address] Health Maintenance Due Date Last Done Comments Depression Screening 08/05/2022 08/05/2021 COVID-19 Vaccine (5 - 2022-2 4 season) 2022 02/03/2022, 12/03/2020, 04/18/2020, Additional history exists Influenza Vaccine (FLU shot) (#1) 2022 11/06/2021, 12/10/2020, 10/30/2019, Additional history exists TSH 02/26/2024 02/25/2023, 05/03/2012, 08/31/2011, Additional history exists Zoster Vaccines Completed 08/23/2018, 10/22, 12/31/2011 documented as of this encounter Medical Devices Implanted Type Area Extruder Operator Multiple Device Identifier Shelf Expiration Date Model / Serial / Lot Stent Complete Sc 8x40 - [id number] Implanted:Qty: 1 on 04/25/2015 by Miguel Richardson MD at [place] [facility] Left: Iliac [employer] : VASCULAR 12/31/2016 [id number] / / [id number] Stent Complete Sc 8x100 - [id number] Implanted:Qty: 1 on 04/25/2015 by Miguel Richardson MD at [place] [facility] Left: Iliac [employer] : VASCULAR 12/11/2016 [id number] / / [id number] Stent Assurant 5x29qgn08af - [id number] Implanted:Qty: 1 on 04/25/2015 by Miguel Richardson MD at [place] [facility] Left: Iliac [employer] : VASCULAR 09/01/2016 [id number] / / [id number] Stent Complete Sc 5x150 - [id number] Implanted:Qty: 1 on 04/25/2015 by Miguel Richardson MD at [place] [facility] Left: Femoral Artery [employer] : VASCULAR 02/10/2017 [id number] / / [id number] Stent Complete Sc 6x150 - [id number] Implanted:Qty: 1 on 04/25/2015 by Miguel Richardson MD at [place] [facility] Left: Femoral Artery [employer] : VASCULAR 08/18/2016 [id number] / / [id number] Stent Complete Sc 6x150 - [id number] Implanted:Qty: 1 on 04/25/2015 by Miguel Richardson MD at [place] [facility] Left: Femoral Artery [employer] : VASCULAR 08/20/2016 [id number] / / [id number] Stent Complete Sc 6x60 - [id number] Implanted:Qty: 1 on 04/25/2015 by Miguel Richardson MD at [place] [facility] Left: Femoral Artery [employer] : VASCULAR 01/26/2017 [id number] / / [id number] Cement Bone Lv G 1119-140-01 - [id number] Implanted:Qty: 1 on 05/04/2015 by Mychal Tovar MD at [place] [facility] Left: Groin [employer] 11/20/2017 00-1119-14 0-01 / / [id number] Cement Bone Lv G 1119-140-01 - [id number] Implanted:Qty: 1 on 05/06/2015 by Miguel Richardson MD at [place] [facility] Left: Groca [employer] 08/20/2018 00-1119-14 0- / / [id number] Description:5 beads right gr oin Clip Quick 2.8mm 230cm - [id number] Implanted:Qty: 3 on 12/08/2021 by Nicky Ferrer MD at OR [facility] [email or web address] 03/23/2024 [id number] / / [id number] Duraclip 16mm Xlg Repostn - [id number] Implanted:Qty: 2 on 12/08/2021 by Nicky Ferrer MD at OR [facility] [employer] 04/07/2023 [id number] / / [id number] Duraclip 16mm Xlg Repostn - [id number] Implanted:Qty: 4 on 12/08/2021 by Nicky Ferrer MD at OR [facility] [employer] 03/03/2024 [id number] / / [id number] documented as of this encounter Visit Diagnoses Diagnosis Atrial fibrillation, unspecified type (HCC)- Primary History of CVA (cerebrovascular accident) Transient ischemic attack (TIA), and cerebral infarction without residual deficits CEREBROVASCULAR DZ, POST-STROKE Cerebral atherosclerosis documented in this encounter Advance Directives Documents on File Type Date Recorded Patient Guest Relations Representative Expl anation Advance Directives and Livin g Will 07/14/2015 LIVING WILL Advance Directives and Livin g Will 07/14/2015 ADVANCE DIRECTIVE Power of Detailer School Photographs 07/14/2015 POWER OF A TTORNEY Latest Code [...] the patient have Health Care Power of Detailer School Photographs? Yes, in chart and reviewed as current Full Code 07/27/2015 12:46 AM 08/02/2015 5:42 PM This order reflects the patients wishes and were consensually agreed upon. Full Code 07/09/2015 1:41 PM 07/10/2015 5:03 PM Question Answer Comments Discussion of Advance Directives occurred with: Not Discussed Does the patient have a Living Will? No Does the patient have Health Care Power of Detailer School Photographs? No Full Code 05/05/2015 1:09 AM 05/16/2015 3:48 PM This order reflects the patients wishes and were consensually agreed upon. Question Answer Comments Discussion of Advance Directives occurred with: Not Discussed Does the patient have a Living Will? No Does the patient have Health Care Power of Detailer School Photographs? No Care Teams Order Processing Clerk Relationship Specialty Start Date End Date Lamin Malcolm MD [address] [place] [address] PCP - General Family Medicine 04/10/18 documented as of this encounter
--- OUTSIDE RECORDS SUMMARY | 2023-04-21 12:51 | External Medical Summary | Summary of Care ---
Author Name Unknown Organization [facility] Address [address] [place] [address] Phone [phone] Care Team Providers Care Footwear Stitcher Name Role Phone Lamin Malcolm MD Primary Care Provider [phone] Encounter Details Date Type Department Care Team (Late st Contact Info) Description 02/01/2023 Result Scan Unspecified Department <No scans attached> Allergies No known active allergiesdocumented as of this encounter (statuses as of 03/16/2023) Medications Medication Sig Dispensed Refills Start Date End Date Status Multiple Vitamin (MULTI-VITAMIN DAILY) Tablet Take 1 Tablet by mouth in the morning. 0 Active Lactobacillus (LACTINEX) chewable tablet Take 1 Tablet by mouth in the morning and 1 Tablet at noon and 1 Tablet in the evening. Take with meals. 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 kang. Biopsy proven. documented as of this encounter (statuses as of 03/16/2023) Resolved Problems Problem Noted Date Diagnosed Date Resolved Date Hx of Clostridium difficile infection 11/23/2016 04/11/2018 Clostridium difficile infection 08/05/2016 11/23/2016 S/P ablation of atrial flutter 08/03/2016 04/11/2018 Clostridium difficile infection 09/06/2015 08/03/2016 Postoperative wound infection 08/01/2015 08/03/2016 Septic shock 05/04/2015 08/03/2016 MANUEL (acute kidney injury) 05/04/2015 Accelerate Clinical Trial*[id number] 08/29/2012 03/13/2015 Overview: ACCELERATE STUDY. Project # [id number], OPTICAL MECHANIC: Norman Wetzel MD. CRC: NANCY Harper. SUMMARY: To test the hypothesis that Evacetrapib 130 mg, in comparison to placebo, reduces the risk of major adverse coronary events in high-risk vascular disease patients. CONTACTS: During normal business hours, contact study staff at ; after hours Industrial Ecologist via the [facility] hospital concrete wall grinder operator [phone]. 24-hour Global Study Helpline: [phone]. Lipid levels should not be ordered/obtained while this subject is in the Accelerate study. Lipids are being managed in a blinded fashion. If lipid levels are inadvertently obtained, it is important that test results are NOT provided to the patient, study doctor, email marketing coordinator, or other study team members. Restricted meds while in the study: 1) niacin > 250 mg, 2) gemfibrozil with a potent [id number]. Osteoporosis 08/27/2011 08/03/2016 Double vision 06/15/2011 08/03/2016 [...] as of this encounter (statuses as of 03/16/2023) Immunizations Name Administration Dates Next Due COVID-19 mRNA, LNP-s, No Pre serve, 2-Dose Series ([employer]) 12/03/2020,04/18/2020,03/28/2020 Covid-19, Mrna, Lnp-s, Pf, B ivalent, 30 Mcg, IM, 12 yrs and above ([employer]) 02/03/2022 Pneumococcal Conjugate Vacc, 13 Valent (Prevnar) [...] Care Team (Late st Contact Info) Description 03/30/2023 3:30 PM EST Office Visit Cardiology, [facility] [address] [place] [address] Lamin Griffith PA-C [address] [place] [address] 04/07/2023 8:00 AM EST Laboratory Lab Mobile Phlebotomy [facility] [address] [place] [address] [facility] Mobile Home Draw [address] [place] [address] 04/08/2023 6:00 PM EST Anticoagulation Pharmacy Call Center [address] [place] [address] [facility] [address] [place] [address] 06/27/2023 2:00 PM EDT Office Visit [facility] [address] [place] [address] Lamin Malcolm MD [address] [place] [address] Health Maintenance Due Date Last Done Comments Depression Screening 08/05/2022 08/05/2021 COVID-19 Vaccine (2022-2 4 season) 2022 02/03/2022, 12/03/2020, 04/18/2020, Additional history exists Influenza Vaccine (FLU shot) (#1) 2022 11/06/2021, 12/10/2020, 10/30/2019, Additional history exists TSH 02/26/2024 02/25/2023, 05/0 03/2012, 08/31/2011, Additional history exists Zoster Vaccines Completed 08/23/2018, 10/22, 12/31/2011 documented as of this encounter Medical Devices Implanted Type Area Scouring Pads Supervisor Device Identifier Shelf Expiration Date Model / Serial / Lot Stent Complete Ga 6x60 - [id number] Implanted:Qty: 1 on 04/25/2015 by Miguel Richardson MD at OR [facility] Left: Femoral Artery [employer] : VASCULAR 01/26/2017 [id number] / / [id number] Cement Bone Lv G 1119-140-01 - [id number] Implanted:Qty: 1 on 05/04/2015 by Mychal Tovar MD at OR [facility] Left: Groin [employer] 11/20/2017 00-1119-14 0- / / [id number] Cement Bone Lv G 1119-140-01 - [id number] Implanted:Qty: 1 on 05/06/2015 by Miguel Richardson MD at [place] [facility] Left: Groin [employer] 08/20/2018 00-1119-14 0- / / [id number] Description:5 beads right gr oin Duraclip 16mm Xlg Repostn - [id number] Implanted:Qty: 4 on 12/08/2021 by Nicky Ferrer MD at OR [facility] [employer] 03/03/2024 [id number] / / [id number] documented as of this encounter Procedures Procedure Name Priority Date/Time Associated Diagnosis Comments OUTSIDE LAB RESULTS 02/01/2023 documented in this encounter Results * OUTSIDE LAB RESULTS (02/01/2023) 02/01/2023 No Physician Data Unknown LABORATORY documented in this encounter Advance Directives Documents on File Type Date Recorded Patient Rn Neonatal Icu Expl anation Advance Directives and Livin g Will 07/14/2015 LIVING WILL Advance Directives and Livin g Will 07/14/2015 ADVANCE DIRECTIVE Power of Senior Application Security Consultant 07/14/2015 POWER OF A TTORNEY Latest Code [...] the patient have Health Care Power of Senior Application Security Consultant? Yes, in chart and reviewed as current Full Code 07/27/2015 12:46 AM 08/02/2015 5:42 PM This order reflects the patients wishes and were consensually agreed upon. Full Code 07/09/2015 1:41 PM 07/10/2015 5:03 PM Question Answer Comments Discussion of Advance Directives occurred with: Not Discussed Does the patient have a Living Will? No Does the patient have Health Care Power of Senior Application Security Consultant? No Full Code 05/05/2015 1:09 AM 05/16/2015 3:48 PM This order reflects the patients wishes and were consensually agreed upon. Question Answer Comments Discussion of Advance Directives occurred with: Not Discussed Does the patient have a Living Will? No Does the patient have Health Care Power of Senior Application Security Consultant? No Care Teams Footwear Stitcher Relationship Specialty Start Date End Date Lamin Malcolm MD [address] [place] [address] PCP - General Family Medicine 04/10/18 documented as of this encounter
--- OUTSIDE RECORDS SUMMARY | 2023-04-21 12:51 | External Medical Summary | Summary of Care ---
Author Name Unknown Organization [facility] Address [address] [place] [address] Phone [phone] Care Team Providers Care Java Tech Lead Name Role Phone Lamin Malcolm MD Primary Care Provider [phone] Reason for Visit * Reason Comments Dosage Adjustment Via Phone (anticoag Cl inic) Encounter Details Date Type Department Care Team (Latest Contact Info) Description 02/28/2023 7:00 AM EST Anticoagulation Pharmacy, [place] [address] [place] [address] [facility] [address] [place] [address] History of CVA (cerebrovascular accident)*; CEREBROVASCULAR DZ, POST-STROKE; Longstanding persistent atrial fibrillation (HCC) Allergies No known active allergiesdocumented as of [...] 0 Active Potassium Chloride ER 20 MEQ TBCRIndications:Special Agent pancho diastolic heart failure (HCC) Take 1 [...] 12/26/2018 Hyperparathyroidism, 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 Project # [id number], VENUE ATTENDANT: Norman Wetzel MD. CRC: NANCY Harper. SUMMARY: To test the hypothesis that Evacetrapib 130 mg, in comparison to placebo, reduces the risk of major adverse coronary events in high-risk vascular disease patients. CONTACTS: During normal business hours, contact study staff at ; after hours Acid Operator via the [facility] [place] impregnation operator [phone]. 24-hour Global Study Helpline: [phone]. Lipid levels should not be ordered/obtained while this subject is in the Accelerate study. Lipids are being managed in a blinded fashion. If lipid levels are inadvertently obtained, it is important that test results are NOT provided to the patient, study doctor, community service coordinator, or other study team members. Restricted meds while in the study: 1) niacin > 250 mg, 2) gemfibrozil with a potent [id number]. Osteoporosis 08/27/2011 08/03/2016 Double vision 06/15/2011 08/03/2016 [...] 12 Overview: S/P CARDIOVERSION BY DR. WETZEL assisted current use of ant icoagulant therapy 02/04/2004 [...] mRNA, LNP-s, No Pre serve, 2-Dose Series ([employer]) 12/03/2020,04/18/2020,03/28/2020 Covid-19, Mrna, Lnp-s, Pf, B ivalent, 30 Mcg, IM, 12 yrs and above ([employer]oozon) 02/03/2022 Pneumococcal Conjugate Vacc, 13 Valent (Prevnar) [...] as of this encounter Progress Notes * Ashley Golden RPh - 02/28/2023 8:59 AM EST Medication Therapy Disease Management - Anticoagulation Patient: Jovan Stewart Marj Atwood | : 1940 Subjective Contacts Type Contact Phone/Fax 02/28/2023 09:00 AM EST Phone (Outgoing) Jovan Mcmahan Jr. "Miles" (Self) [phone] (H) Patient-Reported Symptoms: Patient Findings Negatives: Signs/symptoms of thrombosis, Signs/symptoms of bleeding, Change in health, Change in alcohol use, Change in activity, Upcoming invasive procedure, Missed doses, Extra doses, Change in medications, Change in diet/appetite, Bruising Objective Current Warfarin Dose As of 02/28/2023 Warfarin maintenance plan: 4 mg (2 mg x 2) every Mon, Fri; 2 mg (2 mg x 1) all other days INR Result As of 02/28/2023 INR goal: 2.0-3.0 INR used for dosin.0 (02/25/2023) Assessment & Plan Warfarin Plan As of 02/28/2023 Full warfarin instructions: 4 mg every Mon, Fri; 2 mg all other days No change documented: Ashley Golden RPh Next INR check: 04/08/2023 Repeat PT/INR in 6 week(s) via [facility] Weekly dose: not changed Additional Dosing Information: Ashley Golden RPh Clinical Pharmacist 02/28/2023, 9:00 AM documented in this encounter Plan of Treatment Upcoming Encounters Date Type Department Care Team (Late st Contact Info) Description 04/14/2023 1:30 PM EST Office Visit Cardiology, [facility] [address] [place] [address] Norman Wetzel MD [address] [place] [phone] 06/27/2023 2:00 PM EDT Office Visit [facility] [address] [place] [facility] [place] [phone] Lamin Malcolm MD [address] [place] [address] Health Maintenance Due Date Last Done Comments Depression Screening 08/05/2022 08/05/2021 COVID-19 Vaccine (2022-2 4 season) 2022 02/03/2022, 12/03/2020, 04/18/2020, Additional history exists Influenza Vaccine (FLU shot) (#1) 2022 11/06/2021, 12/10/2020, 10/30/2019, Additional history exists TSH 02/26/2024 02/25/2023, 05/0 03/2012, 08/31/2011, Additional history exists Zoster Vaccines Completed 08/23/2018, 10/22, 12/31/2011 documented as of this encounter Medical Devices Implanted Type Area Milling/Polishing Operator Device Identifier Shelf Expiration Date Model / Serial / Lot Stent Complete Ia 6x60 - [id number] Implanted:Qty: 1 on 04/25/2015 by Miguel Richardson MD [place] [facility] Left: Femoral Artery [employer] : VASCULAR 01/26/2017 [id number] / / [id number] Cement Bone Lv G 1119-140-01 - [id number] Implanted:Qty: 1 on 05/04/2015 by Mychal Tovar MD at [place] [facility] Left: Groin [employer] 11/20/2017 00-1119-14 0- / / [id number] Cement Bone Lv G 1119-140-01 - [id number] Implanted:Qty: 1 on 05/06/2015 by Miguel Richardson MD [place] [facility] Left: Vamshi [employer] 08/20/2018 00-1119-14 0- / / [id number] Description:5 beads right gr oin Duraclip 16mm Xlg Repostn - [id number] Implanted:Qty: 4 on 12/08/2021 by Nicky Ferrer MD at OR [facility] [employer] 03/03/2024 [id number] / / [id number] documented as of this encounter Visit Diagnoses Diagnosis History of CVA (cerebrovascular accident)- Primary Transient ischemic attack (TIA), and cerebral infarction without residual deficits CEREBROVASCULAR DZ, POST-STROKE Cerebral atherosclerosis Longstanding persistent atrial fibrillation (HCC) documented in this encounter Advance Directives Documents on File Type Date Recorded Patient Planner Expl anation Advance Directives and Livin g Will 07/14/2015 LIVING WILL Advance Directives and Livin g Will 07/14/2015 ADVANCE DIRECTIVE Power of Digital Marketer 07/14/2015 POWER OF A TTORNEY Latest Code [...] the patient have Health Care Power of Digital Marketer? Yes, in chart and reviewed as current Full Code 07/27/2015 12:46 AM 08/02/2015 5:42 PM This order reflects the patients wishes and were consensually agreed upon. Full Code 07/09/2015 1:41 PM 07/10/2015 5:03 PM Question Answer Comments Discussion of Advance Directives occurred with: Not Discussed Does the patient have a Living Will? No Does the patient have Health Care Power of Digital Marketer? No Full Code 05/05/2015 1:09 AM 05/16/2015 3:48 PM This order reflects the patients wishes and were consensually agreed upon. Question Answer Comments Discussion of Advance Directives occurred with: Not Discussed Does the patient have a Living Will? No Does the patient have Health Care Power of Digital Marketer? No Care Teams Java Tech Lead Relationship Specialty Start Date End Date Lamin Malcolm MD [address] [place] [facility] [place] [address] PCP - General Family Medicine 04/10/18 documented as of this encounter
--- OUTSIDE RECORDS SUMMARY | 2023-04-21 12:52 | External Medical Summary | Summary of Care ---
Author Name Unknown Organization [facility] Address [address] [place] [address] Phone [phone] Care Team Providers Care Sap Pp Consultant Name Role Phone Lamin Malcolm MD Primary Care Provider [phone] Reason for Referral * Precert (Within 10 days (routine)) - Pending Review Specialty Diagnoses / Procedures Referred By Contac t Referred To Contact Radiology Diagnoses Vascular dementia without behavioral disturbance, psychotic disturbance, mood disturbance, or anxiety, unspecified dementia severity (HCC) Procedures CT HEAD/BRAIN WO CONTRAST Lamin Malcolm MD [address] [place] [address] Referral ID Status Reason Start Date Expiration Date V isits Requested Visits Authorized [id number] Pending Review 03/04/2023 999 999 Reason for Visit * Reason Comments Status Check Status check Encounter Details Date Type Department Care Team (Late st Contact Info) Description 02/25/2023 2:00 PM EST Office Visit [facility] [address] [place] [address] Lamin Malcolm MD [address] [place] [address] Risk and functional assessment*; Vascular dementia without behavioral disturbance, psychotic disturbance, mood disturbance, or anxiety, unspecified dementia severity (HCC); Longstanding persistent atrial fibrillation (HCC) Allergies No known active allergiesdocumented as of this encounter (statuses as of 02/25/2023) Medications Medication Sig Dispensed Refills Start Date End Date Status Multiple Vitamin (MULTI-VITAMIN DAILY) Tablet Take 1 Tablet by mouth in the morning. 0 Active Lactobacillus (LACTINEX) chewable tablet Take 1 Tablet by mouth in the morning and 1 Tablet at noon and 1 Tablet in the evening. Take with meals. 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 kang. Biopsy proven. documented as of this encounter (statuses as of 02/25/2023) Resolved Problems Problem Noted Date Diagnosed Date Resolved Date Hx of Clostridium difficile infection 11/23/2016 04/11/2018 Clostridium difficile infection 08/05/2016 11/23/2016 S/P ablation of atrial flutter 08/03/2016 04/11/2018 Clostridium difficile infection 09/06/2015 08/03/2016 Postoperative wound infection 08/01/2015 08/03/2016 Septic shock 05/04/2015 08/03/2016 MANUEL (acute kidney injury) 05/04/2015 Accelerate Clinical Trial*[id number] 08/29/2012 03/13/2015 Overview: ACCELERATE STUDY. Project # [id number], WORKING SUPERVISOR: Norman Wetzel MD. CRC: NANCY Harper. SUMMARY: To test the hypothesis that Evacetrapib 130 mg, in comparison to placebo, reduces the risk of major adverse coronary events in high-risk vascular disease patients. CONTACTS: During normal business hours, contact study staff at ; after hours Administrative Accountant via the [facility] hospital form tamper operator [phone]. 24-hour Global Study Helpline: [phone]. Lipid levels should not be ordered/obtained while this subject is in the Accelerate study. Lipids are being managed in a blinded fashion. If lipid levels are inadvertently obtained, it is important that test results are NOT provided to the patient, study doctor, drainage design coordinator, or other study team members. Restricted meds while in the study: 1) niacin > 250 mg, 2) gemfibrozil with a potent [id number]. 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 kang. Biopsy proven. History of tobacco use 04/18/200308/03 Kidney disease, chronic, sta ge II (GFR 60-89 ml/min) 04/01/2011 documented as of this encounter (statuses as of 02/25/2023) Immunizations Name Administration Dates Next Due COVID-19 mRNA, LNP-s, No Pre serve, 2-Dose Series (StreamSpec) 12/03/2020,04/18/2020,03/28/2020 Covid-19, Mrna, Lnp-s, Pf, B ivalent, [...] 957 - 04/22/2015 Cigars Smokeless Tobacco: Never Tobacco Cessation:Counseling Given: Not Answered Alcohol Use Standard Drinks/Week Comments Yes 1 [...] on file documented as of this encounter Last Filed Vital Signs Vital Sign Reading Time Taken Comments Blood Pressure 104/56 02/25/2023 1:54 PM EST Pulse 82 02/25/2023 1:54 PM EST Temperature 36.6 C (97.8 F) 02/25/2023 1:54 PM ES T Respiratory Rate 20 02/25/2023 1:54 PM EST Oxygen Saturation 97% 02/25/2023 1:54 PM EST Inhaled Oxygen Concentration - - Weight 102.8 kg (226 lb 9.6 oz) 02/25/2023 1:54 PM EST Height 185.4 cm (6' 1") 02/25/2023 1:54 PM EST Body Mass Index 29.9 02/25/2023 1:54 PM EST documented in this encounter Functional Status Functional Status Response [...] No 12/08/2021 documented as of this encounter Patient Instructions * Patient Instructions* Lori Amador LPN - 02/25/2023 1:54 PM EST Patient Instructions - Fall Prevention (This education is for all patients over 65 regardless of symptoms) Remember to take your current medications as prescribed. In order to prevent falls, you are encouraged to: Exercise Utilize assistive/adaptive devices Avoid multifocal lenses when walking Avoid hazards in home Maintain a regular toileting schedule Any questions please contact our office. Preventing Falls in the Home (This education is for all patients over 65 regardless of symptoms) As you get older, falls are more likely. Thats because your reaction time slows. Your muscles and joints may also get stiffer, making them less flexible. Illness, medications, and vision changes can also affect your balance. A fall could leave you unable to live on your own. To make your home safer, follow these tips: Floors Put nonskid pads under area rugs Remove throw rugs Replace worn floor coverings Tack carpets firmly to each step on carpeted stairs. Put nonskid strips on the edges of uncarpeted stairs Keep floors and stairs free of clutter and cords Arrange furniture so there are clear pathways Clean up any spills right away Bathrooms Install grab bars in the tub or shower Apply nonskid strips or put a nonskid rubber mat in the tub or shower Sit on a bath chair to bathe Use bathmats with nonskid backing Lighting Keep a flashlight in each room Put a nightlight along the pathway between the bedroom and the bathroom I[employer] Patient Education Copyright 2008 - 2010 Ivet except where otherwise noted Preventing Falls: Exercises to Improve Balance, Flexibility, Strength, and Staying Power (This education is for all patients over 65 regardless of symptoms) Certain types of exercises may help make you less likely to fall. Try the ones below. Or do other exercises that your healthcare provider suggests. Depending on your health, you may need to start slowly. Dont let that stop you. Even small amounts of exercise can help you. Be sure to talk to yourhealthcare provider before starting any exercise program. Improve Balance Many types of exercise can help improve balance. Eddie chi and yoga are good examples. Heres another one to try. You can do it anytime and almost anywhere. Stand next to a counter or solid support. Push yourself up onto your tiptoes. Hold for 5 seconds. If you start to lose your balance, hold on to the counter. Rest and repeat 5 times. Work up to holding for 20 to 30 seconds, if you can. Increase Flexibility Being more flexible makes it easier for you to move around safely. Try exercises like the seated hamstring stretch. Sit in a chair and put one foot on a stool. Straighten your leg and reach with both hands down either side of your leg. Reach as far down your leg as you can. Hold for about 20 seconds. Go back to the starting position. Then repeat 5 times. Switch legs. Build Strength Resistance exercises help build strength. You can do them without equipment. Or you can use weights, elastic bands, or special machines. One such exercise is called the biceps curl. You can hold a 1 pound weight or even a can of soup. Do this exercise at least 3 times a week. Strive for everyday. Sit up straight in a chair. Keep your elbow close to your body and your wrist straight. Bend your arm, moving your hand up to your shoulder. Then slowly lower your arm. Repeat 5 times. Switch to the other arm. Build Your Staying Power Aerobic exercises make your heart and lungs stronger so you can keep moving longer. Walking and swimming are two of the best types of exercises you can do. Using a stationary bike is great, too. Find an aerobic exercise that you enjoy. Start slowly and build up. Even 5 minutes is helpful. Aimfor a goal of 30 minutes, at least 3 times a week. You dont have to do 30 minutes in one session. Break it up and walk a little throughout the day. More Helpful Tips Start easy. Slowly work up to doing more. Talk with your healthcare provider about the best exercises for you. Call senior centers or health clubs about exercise programs. If needed, have a family member watch you walk every so often to check your stability. Exercise with a friend. Choose an activity you both enjoy. Try exercises that you can do anytime, anywhere. Here are two examples. Have someone with you when you first try these: Practice walking by placing one foot right in front of the other. Stand up and sit down 10 times. Repeat this throughout the day. Ivet Patient Education Copyright 2009 - 2010 Ivet except where otherwise noted. Preventing Falls: Moving Safely Using a Cane or Walker (This education is for all patients over 65 regardless of symptoms) Keep the cane away from your feet so you dont trip. A walking aid, such as a cane or walker, can help you stay more independent and avoid falls. Remember to keep your walking aid within easy reach when youre in a chair or in bed. And learn how to use it safely so you dont injure yourself. Using a Cane If you have a stronger side, hold the cane on that side. Get your balance. Move the cane and your weaker leg forward. Support your weight on both the cane and your weaker side. Step with your stronger leg. Start again from step 1. If youre using a folding walker, be sure you know how to lock it open. Check that its locked open before each use. Using a Walker Roll the walker (or lift it, if youre using one without wheels) forward about 12 inches. Step forward with your weaker leg first. Use the walker to help keep your balance. Bring your other foot forward to the center of the walker. Start again from step 1. Helpful Tips Check with your healthcare provider about the right walking aid to use. Ask about a walker with a seat attached. Check the tips of your cane or walker to make sure they have nonskid covers. Move slowly from room to room. Dont gonzales. Sit down to get dressed. Use a kong pack or backpack to keep your hands free. Get help for jobs that mean climbing, even on a stepstool. [employer] Patient Education Copyright 2008 - 2010 [employer] except where otherwise noted. Treating Urinary Incontinence in Men (This education is for all patients over 65 regardless of symptoms) You can't always control the release of urine. You may leak urine. Or you may not be able to hold your urine until you can get to a bathroom. This is called urinary incontinence. The problem can be managed. Talk to your doctor about your treatment options. Taking Medications Prescription medications may help you. They may: Help the sphincter to work better. (This is the muscle that closes to keep urine from leaking out of the bladder.) Help stop the bladder from marcial too often to push urine out. Help the bladder muscles contract with more force. Help relax the sphincter muscle and allow urine to flow more freely. Making Changes to Your Routine Certain changes in your daily routine may help. These include: Avoiding caffeine and alcohol. Using timed voiding. This is following a schedule for drinking fluids and urinating. Doing Kegel exercises daily. These exercises involve tightening the muscles in your sphincter and around your bladder to help strengthen them. Your doctor can explain how to do them. Using a Catheter A catheter is a narrow tube that is inserted through the urethra into the bladder. It drains urine.A condom catheter covers the penis. It channels urine into a collection bag. It is worn most of thetime. Intermittent catheterization means inserting a catheter to drain the bladder, then removing it. This is done on a regular schedule. Having Surgery If other options don't work, surgery may be recommended. If surgery is an option, your healthcare provider can discuss it with you and explain its risks and benefits. Healing After Prostate Surgery Surgery on the prostate gland can cause incontinence. Most often, the incontinence is only for a short time. It clears up when healing is complete. Very rarely, prostate surgery can result in permanent incontinence. documented in this encounter Progress Notes * Lamin Malcolm MD - 02/25/2023 2:03 PM EST Subjective: Jovan Mcmahan Jr. is a 82 year old male. Chief Complaint Patient presents with Status Check Status check HPI: 82-year-old with known history of stage IV chronic renal failure severe, peripheral vascular disease, chronic atrial fibrillation, chronic anticoagulation, recurrent C diff infection, prior CVA.He follows closely with Dr. Sorensen with [facility] nephrology. He has elected not to pursue dialysis. Today's visit is routine. He is accompanied by his . She indicates that he sleeps at least 12 hours out of the day. needs to nap about every hour to 2 hours. Does awaken at night around 4:00 a.m. in his awake for about an hour and a half then goes back to bed. Having difficulties with memory. That was noted when I last saw him. His indicates that it has progressed. Um he asked her multiple times where where they going for the appointment today. No indication of delusional thought. Overall mood seems to be much the same. He has follow-up with Cardiology in mid March. No longer following with vascular surgery in partbecause 2 of his prior vascular surgeons at [facility] have left and the other part is question the need for ongoing surveillance given his overall poor health status. Patient Active Problem List Diagnosis Code HTN, goal below 140/90 I10 Secondary localized osteoarthrosis of shoulder region M19.219 Aortocoronary bypass status Z95.1 RENAL ARTERY ATHEROSCLER I70.1 ADVANCE DIRECTIVE INFORMATION CEREBROVASCULAR DZ, POST-STROKE I67.2, Z86.73 Chronic diastolic heart failure (HCC) I50.32 Dyslipidemia, goal LDL below 100 E78.5 Esophageal reflux K21.9 PROTEINURIA - FSGS R80.9 Obesity, BMI 33.74 11 E66.9 Tobacco use disorder F17.200 ASCVD (arteriosclerotic cardiovascular disease) I25.10 Atrial fibrillation (HCC) I48.91 PVD (peripheral vascular disease) ([facility]) I73.9 CKD (chronic kidney disease) stage 4, GFR 15-29 ml/min ([facility]) N18.4 History of CVA (cerebrovascular accident) Z86.73 Cellulitis of left leg L03.116 Hypertensive heart and kidney disease with chronic diastolic congestive heart failure and stage 4 chronic kidney disease (HCC) I13.0, I50.32, N18.4 Asymptomatic bilateral carotid artery stenosis I65.23 S/P carotid endarterectomy Z98.890 Chronic atrial fibrillation (HCC) I48.20 Hyperparathyroidism, 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 Lactobacillus (LACTINEX) chewable tablet Take 1 Tablet by mouth in the morning and 1 Tablet at noonand 1 Tablet in the evening. Take with meals. Potassium Chloride ER 20 MEQ TBCR Take 1 Tab by mouth 2 times a day. (Patient taking differently: Take 1 Tablet by mouth in the morning.) 60 Tab 5 Metoprolol Succinate ER 25 MG Oral Tablet Extended Release 24 Hour (toPROL XL) TAKE 1 TABLET TWICE A DAY 180 Tablet 3 Omeprazole 20 MG Oral Capsule Delayed Release (PriLOSEC) Take 1 Capsule by mouth in the morning. 1 hour before the first meal of the day.. 90 Capsule 3 Clopidogrel Bisulfate 75 MG Oral Tablet (pLAVix) TAKE 1 TABLET DAILY 90 Tablet 1 Bumetanide 1 MG Oral Tablet (Bumex) TAKE 1 TABLET TWICE A DAY 180 Tablet 1 traZODone HCl 50 MG Oral Tablet (Desyrel) TAKE 2 TABLETS AT BEDTIME 180 Tablet 0 Vancomycin HCl 125 MG Oral Capsule (Vancocin) TAKE 1 CAPSULE IN THE MORNING 90 Capsule 3 Rosuvastatin Calcium 10 MG Oral Tablet (Crestor) TAKE 1 TABLET DAILY 90 Tablet 1 Warfarin Sodium 2 MG Oral Tablet (Coumadin) TAKE 2 TABLETS (4 MG) EVERY TUESDAY, TUESDAY, AND TUESDAY AND 1 TABLET (2MG) ALL OTHER DAYS 130 Tablet 3 Vitamin D3 Complete Oral Tablet Take by mouth. (Patient not taking: Reported on 02/25/2023) No current facility-administered medications for this visit. Review of patient's allergies indicates: No Known Allergies Objective: BP 104/56 | Pulse 82 | Temp 36.6 C (97.8 F) (Temporal Artery) | Resp 20 | Ht 1.854 m (6' 1") | Wt 102.8 kg (226 lb 9.6 oz) | SpO2 97% | BMI 29.90 kg/m | BSA 2.3 m Physical Exam: CONST: alert, pleasant, no acute distress. Although not disheveled, he was not dressed is neatly asusual. Also has facial hair that is not usual for him at visits. Eyes - PERRLA, EOM'I OROPHARYNX: clear, no swelling or erythema, moist CV: regular rate and irregular rhythm, CHEST: clear to auscultation bilaterally, no rales or wheezing ABD: soft, non tender, non distended, no masses or hepatosplenomegaly EXT: 2+ edema left lower leg and 1+ edema right lower leg no ulcerations no weeping. NEURO: AAOx3, no gross focal deficits, cerebellar signs normal, affect appropriate MENTAL STATUS: Um mini-mental status exam. The patient scored 22/30. He Um could only aim 105 orientation to time questions. Also could not recall any of 3 objects and could not repeat Um no ifs and/or buts. SKIN: no rash or significant lesions ASSESSMENT/PLAN: Risk and functional assessment (Primary) Vascular dementia without behavioral disturbance, psychotic disturbance, mood disturbance, or anxiety, unspecified dementia severity (HCC). Likely Alzheimer's disease but could also be pure vascular dementia. - CT HEAD/BRAIN WO CONTRAST; Future; Expected date: 03/04/2023. Rule out multi- infarct dementia as well as tumor. Avoid contrast given his CKD 4 - FOLIC ACID; Future; Expected date: 02/25/2023 - TSH WITH FREE T4 IF INDICATED; Future; Expected date: 02/25/2023 - VITAMIN B12; Future; Expected date: 02/25/2023 Longstanding persistent atrial fibrillation (HCC) - PT INR; Future; Expected date: 02/25/2023 Will discuss with [facility] to see if they can arrange for home phlebotomy for INRs. See again 4 months. Lamin Malcolm MD documented in this encounter Nursing Notes * Lori Amador LPN - 02/25/2023 1:54 PM EST The patient has been properly identified by confirmation of name and date of . Chief Complaint Patient presents with Status Check Status check documented in this encounter Plan of Treatment Upcoming Encounters Date Type Department Care Team (Late st Contact Info) Description 02/28/2023 7:00 AM EST Anticoagulation Pharmacy, [address] [address] [place], [facility] [address] [place] [address] 04/14/2023 1:30 PM EST Office Visit Cardiology, [facility] [address] [facility] [place] [address] Norman Wetzel MD [address] [facility] [place] [address] 06/27/2023 2:00 PM EDT Office Visit [facility], [address] [place] [id number] Lamin Malcolm MD [address] [place] [address] Pending Results Name Type Priority Associated Diagnoses Date /Time FOLIC ACID Lab Routine Vascular dementia without behavioral disturbance, psychotic disturbance, mood disturbance, or anxiety, unspecified dementia severity (HCC) 02/25/2023 2:53 PM EST PT INR Lab Routine Longstanding persistent atrial fibrillation (HCC) 02/25/2023 2:53 PM EST TSH WITH FREE T4 IF INDICATED Lab Routine Vascular dementia without behavioral disturbance, psychotic disturbance, mood disturbance, or anxiety, unspecified dementia severity (HCC) 02/25/2023 2:53 PM EST VITAMIN B12 Lab Routine Vascular dementia without behavioral disturbance, psychotic disturbance, mood disturbance, or anxiety, unspecified dementia severity (HCC) 02/25/2023 2:53 PM EST Scheduled Orders Name Type Priority Associated Diagnoses Orde r Schedule CT HEAD/BRAIN WO CONTRAST Medical Imaging Routine Vascular dementia without behavioral disturbance, psychotic disturbance, mood disturbance, or anxiety, unspecified dementia severity (HCC) Expected: 03/04/2023, Expires: 05/27/2023 FOLIC ACID Lab Routine Vascular dementia without behavioral disturbance, psychotic disturbance, mood disturbance, or anxiety, unspecified dementia severity (HCC) Expected: 02/25/2023 (Approximate), Expires: 02/25/2024 PT INR Lab Routine Longstanding persistent atrial fibrillation (HCC) Expected: 02/25/2023 (Approximate), Expires: 02/25/2024 TSH WITH FREE T4 IF INDICATED Lab Routine Vascular dementia without behavioral disturbance, psychotic disturbance, mood disturbance, or anxiety, unspecified dementia severity (HCC) Expected: 02/25/2023 (Approximate), Expires: 02/25/2024 VITAMIN B12 Lab Routine Vascular dementia without behavioral disturbance, psychotic disturbance, mood disturbance, or anxiety, unspecified dementia severity (HCC) Expected: 02/25/2023 (Approximate), Expires: 02/25/2024 Health Maintenance Due Date Last Done Comments Depression Screening 08/05/2022 08/05/2021 COVID-19 Vaccine (5 - 3-2 4 season) 2022 02/03/2022, 12/03/2020, 04/18/2020, Additional history exists Influenza Vaccine (FLU shot) (#1) 2022 11/06/2021, 12/10/2020, 10/30/2019, Additional history exists Zoster Vaccines Completed 08/23/2018, 10/22, 12/31/2011 documented as of this encounter Medical Devices Implanted Type Area Traffic Sign Supervisor Device Identifier Shelf Expiration Date Model / Serial / Lot Stent Complete Vt 6x60 - [id number] Implanted:Qty: 1 on 04/25/2015 by Miguel Richardson MD [place] [facility] Left: Femoral Artery [employer] : VASCULAR 01/26/2017 [id number] / / [id number] Cement Bone Lv G 1119-140-01 - [id number] Implanted:Qty: 1 on 05/04/2015 by Mychal Tovar MD at [place] [facility] Left: Groin [employer] 11/20/2017-1119-14 0- / / [id number] Cement Bone Lv G 1119-140-01 - [id number] Implanted:Qty: 1 on 05/06/2015 by Miguel Richardson MD at [place] [facility] Left: Groin [employer] 08/20/20181119-14 0- / / [id number] Description:5 beads right gr oin Duraclip 16mm Xlg Repostn - [id number] Implanted:Qty: 4 on 12/08/2021 by Nicky Ferrer MD at OR [facility] [employer] 03/03/2024 [id number] / / [id number] documented as of this encounter Visit Diagnoses Diagnosis Risk and functional assessment- Primary Screening for unspecified condition Vascular dementia without behavioral disturbance, psychotic disturbance, mood disturbance, or anxiety, unspecified dementia severity (HCC) Longstanding persistent atrial fibrillation (HCC) documented in this encounter Advance Directives Documents on File Type Date Recorded 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 Yes, in chart and reviewed as current Full Code 07/27/2015 12:46 AM 08/02/2015 5:42 PM This order reflects the patients wishes and were consensually agreed upon. Full Code 07/09/2015 1:41 PM 07/10/2015 5:03 PM Question Answer Comments Discussion of Advance Directives occurred with: Not Discussed Does the patient have a Living Will? No Does the patient have Health Care Power of Paving Contractor? No Full Code 05/05/2015 1:09 AM 05/16/2015 3:48 PM This order reflects the patients wishes and were consensually agreed upon. Question Answer Comments Discussion of Advance Directives occurred with: Not Discussed Does the patient have a Living Will? No Does the patient have Health Care Power of Paving Contractor? No Care Teams Sap Pp Consultant Relationship Specialty Start Date End Date Lamin Malcolm MD [address] [facility] [place] [address] PCP - General Family Medicine 04/10/18 documented as of this encounter
--- OUTSIDE RECORDS SUMMARY | 2023-04-21 12:52 | External Medical Summary | Summary of Care ---
Author Name Unknown Organization [facility] Address [address] [place] [address] Phone [phone] Care Team Providers Care Research Home Economist Name Role Phone Florentino Malcolm MD Primary Care Provider [phone] Reason for Visit * Reason Comments eRx-Medication Refill Encounter Details Date Type Department Care Team (Late st Contact Info) Description 02/07/2023 Refill Pharmacy, [address] [address] Florentino Malcolm MD [address] [place] [address] Atrial fibrillation, unspecified type (HCC) Allergies No known active allergiesdocumented as of this encounter (statuses as of 02/07/2023) Medications Medication Sig Dispensed Refills Start Date End Date Status Multiple Vitamin (MULTI-VITAMIN DAILY) Tablet Take 1 Tablet by mouth in the morning. 0 Active Lactobacillus (LACTINEX) chewable tablet Take 1 Tablet by mouth in the morning and 1 Tablet at noon and 1 Tablet in the evening. Take with meals. 0 Active Potassium Chloride ER 20 MEQ TBCRIndications:Chr onic diastolic heart failure (HCC) Take 1 Tab by mouth 2 times a day. 60 Tab 5 8 Active Additional Information Patient taking differently:20 mEq OralDaily(AM), Informant: Spouse, Reported on 03/03/2022 Metoprolol Succinate ER 25 MG Oral Tablet Extended Release 24 Hour (toPROL XL)Indications:Radiographer pancho atrial fibrillation (HCC),Chronic diastolic heart failure (HCC),Persistent atrial fibrillation (HCC) TAKE 1 TABLET TWICE A DAY 180 Tablet 3 3 Active Omeprazole 20 MG Oral Capsule Delayed Release (PriLOSEC) Take 1 Capsule by mouth in the morning. 1 hour before the first meal of the day.. 90 Capsule 3 3 Active Vitamin D3 Complete Oral Tablet Take by mouth. 0 Active Clopidogrel Bisulfate 75 MG Oral Tablet (pLAVix) TAKE 1 TABLET DAILY 90 Tablet 1 3 Active Bumetanide 1 MG Oral Tablet (Bumex)Indications: Chronic diastolic heart failure (HCC) TAKE 1 TABLET TWICE A DAY 180 Tablet 1 3 Active traZODone HCl 50 MG Oral Tablet (Desyrel)Indication s:Sleep disorder TAKE 2 TABLETS AT BEDTIME 180 Tablet 0 3 Active Vancomycin HCl 125 MG Oral Capsule (Vancocin)Indicatio ns:Clostridium difficile infection TAKE 1 CAPSULE IN THE MORNING 90 Capsule 3 3 Active Rosuvastatin Calcium 10 MG Oral Tablet (Crestor)Indication s:ASCVD (arteriosclerotic cardiovascular disease) TAKE 1 TABLET DAILY 90 Tablet 1 3 Active Warfarin Sodium 2 MG Oral Tablet (Coumadin)Indicatio ns:Atrial fibrillation, unspecified type (HCC) TAKE 2 TABLETS (4 MG) EVERY TUESDAY, TUESDAY, AND TUESDAY AND 1 TABLET (2MG) ALL OTHER DAYS 130 Tablet 3 3 Active Warfarin Sodium 2 MG Oral Tablet (Coumadin)Indicatio ns:Atrial fibrillation, unspecified type (HCC) Take by mouth 4 mg (2 tablets) every Mon, Wed, Tue; 2 mg (1 tablet) all other days 130 Tablet 3 2 02/08/20 23 Discontinued documented as of this encounter (statuses as of 02/07/2023) Active Problems Problem Noted Date Diagnosed Date Pulmonary nodules 12/09/2021 Overview: Needs repeat chest CT in 3 months 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 kang. Biopsy proven. documented as of this encounter (statuses as of 02/07/2023) Resolved Problems Problem Noted Date Diagnosed Date Resolved Date Hx of Clostridium difficile infection 11/23/2016 04/11/2018 Clostridium difficile infection 08/05/2016 11/23/2016 S/P ablation of atrial flutter 08/03/2016 04/11/2018 Clostridium difficile infection 09/06/2015 08/03/2016 Postoperative wound infection 08/01/2015 08/03/2016 Septic shock 05/04/2015 08/03/2016 MANUEL (acute kidney injury) 05/04/2015 Accelerate Clinical Trial*[id number] 08/29/2012 03/13/2015 Overview: ACCELERATE STUDY. Project # [id number], AIRWAYS CONTROL SPECIALIST: Norman Wetzel MD. CRC: NANCY Harper. SUMMARY: To test the hypothesis that Evacetrapib 130 mg, in comparison to placebo, reduces the risk of major adverse coronary events in high-risk vascular disease patients. CONTACTS: During normal business hours, contact study staff at ; after hours Diversified Crops Supervisor via the [facility] brimming machine operator [phone]. 24-hour Global Study Helpline: [phone]. Lipid levels should not be ordered/obtained while this subject is in the Accelerate study. Lipids are being managed in a blinded fashion. If lipid levels are inadvertently obtained, it is important that test results are NOT provided to the patient, study doctor, instructional coordinator, or other study team members. Restricted meds while in the study: 1) niacin > 250 mg, 2) gemfibrozil with a potent [id number]. Osteoporosis 08/27/2011 08/03/2016 Double vision 06/15/2011 08/03/2016 [...] 12 Overview: S/P CARDIOVERSION BY DR. 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 kang. Biopsy proven. History of tobacco use 04/18/200308/03 Kidney disease, chronic, sta ge II (GFR 60-89 ml/min) 04/01/2011 documented as of this encounter (statuses as of 02/07/2023) Immunizations Name Administration Dates Next Due COVID-19 mRNA, LNP-s, No Pre serve, 2-Dose Series (Solexel) 12/03/2020,04/18/2020,03/28/2020 Covid-19, Mrna, Lnp-s, Pf, B ivalent, [...] encounter Miscellaneous Notes * Telephone Encounter - Florentino Malcolm MD - 02/07/2023 8:12 AM ESTSigned Prescriptions: Disp Refills Warfarin Sodium 2 MG Oral Tablet (Coumadin)130 Ta*3 Sig: TAKE 2 TABLETS (4 MG) EVERY TUESDAY, TUESDAY, AND TUESDAY AND 1 TABLET (2MG) ALL OTHER DAYS Authorizing Provider: FLORENTINO MALCOLM * Telephone Encounter - Vince Newton florinda - 02/07/2023 7:56 AM EST Pending Prescriptions: Disp Refills Warfarin Sodium 2 MG Oral Tablet [Pharmacy*130 Ta*3 Sig: TAKE 2TABLETS (4 MG) EVERY TUESDAY, TUESDAY, AND TUESDAY AND 1 TABLET (2MG) ALL OTHER DAYS documented in this encounter Plan of Treatment Upcoming Encounters Date Type Department Care Team (Late st Contact Info) Description 02/25/2023 2:00 PM EST Office Visit [facility] [address] [place] [facility] [phone] Florentino Malcolm MD [address] [place] [facility] [place] [address] 04/14/2023 1:30 PM EST Office Visit Cardiology, [facility] [address] [place] [address] Norman Wetzel MD [address] [place] [phone] Health Maintenance Due Date Last Done Comments Depression Screening 08/05/2022 08/05/2021 COVID-19 Vaccine (2022-2 4 season) 2022 02/03/2022, 12/03/2020, 04/18/2020, Additional history exists Influenza Vaccine (FLU shot) (#1) 2022 11/06/2021, 12/10/2020, 10/30/2019, Additional history exists Zoster Vaccines Completed 08/23/2018, 10/22, 12/31/2011 documented as of this encounter Medical Devices Implanted Type Area Manager Labor Delivery Device Identifier Shelf Expiration Date Model / Serial / Lot Stent Complete [place] 6x60 - [id number] Implanted:Qty: 1 on 04/25/2015 by Miguel [place] [facility] [place]: Femoral Artery [employer] : VASCULAR 01/26/2017 [id number] / / [id number] Cement Bone Lv G 1119-140-01 - [id number] Implanted:Qty: 1 on 05/04/2015 by Mychal Tovar [place] [facility] Left: Groin [employer] 11/20/20171119-14 0- / / [id number] Cement Bone Lv G 1119-140-01 - [id number] Implanted:Qty: 1 on 05/06/2015 by Miguel Richardson [place] [facility] [place]: Groin [employer] 08/20/20181119-14 / / [id number] Description:5 beads right gr oin Duraclip 16mm Xlg Repostn - [id number] Implanted:Qty: 4 on 12/08/2021 by Nicky Ferrer MD at OR [facility] [employer] 03/03/2024 [id number] / / [id number] documented as of this encounter Visit Diagnoses Diagnosis Atrial fibrillation, unspecified type (HCC) documented in this encounter Advance Directives Documents on File Type Date Recorded Patient Occupational Therapy Assist Expl anation Advance Directives and Livin g Will 07/14/2015 LIVING WILL Advance Directives and Livin g Will 07/14/2015 ADVANCE DIRECTIVE Power of Venetian Blind Assembler 07/14/2015 POWER OF A TTORNEY Latest Code [...] the patient have Health Care Power of Venetian Blind Assembler? Yes, in chart and reviewed as current Full Code 07/27/2015 12:46 AM 08/02/2015 5:42 PM This order reflects the patients wishes and were consensually agreed upon. Full Code 07/09/2015 1:41 PM 07/10/2015 5:03 PM Question Answer Comments Discussion of Advance Directives occurred with: Not Discussed Does the patient have a Living Will? No Does the patient have Health Care Power of Venetian Blind Assembler? No Full Code 05/05/2015 1:09 AM 05/16/2015 3:48 PM This order reflects the patients wishes and were consensually agreed upon. Question Answer Comments Discussion of Advance Directives occurred with: Not Discussed Does the patient have a Living Will? No Does the patient have Health Care Power of Venetian Blind Assembler? No Care Teams Research Home Economist Relationship Specialty Start Date End Date Florentino Malcolm MD [address] [place] [address] PCP - General Family Medicine 04/10/18 documented as of this encounter
--- OUTSIDE RECORDS SUMMARY | 2023-04-21 12:52 | External Medical Summary ---
Author Name Unknown Address Unknown Organization [id number]:[facility] [place] [address] [place] [address] Laboratory Report Ordering Provider Test Date Status JUDE GOODJHON 02/25/2023 14:53:30 Final Observation Date Value Abnormality Reference (Units ) Status Folic Acid 02/25/2023 14:53:30 19.7 >4.5 (ng/ mL) Final Performing Location [facility] [address] [facility] [address]
--- OUTSIDE RECORDS SUMMARY | 2023-04-21 12:52 | External Medical Summary | Summary of Care ---
Author Name Unknown Organization [facility] Address [address] [place] [address] Phone [phone] Care Team Providers Care Fire Boss Name Role Phone Lamin Malcolm MD Primary Care Provider [phone] Reason for Visit * Reason Comments Outpatient Testing Encounter Details Date Type Department Care Team (Late st Contact Info) Description 02/25/2023 2:50 PM EST Laboratory Laboratory, [place] [address] [place] [address] [facility] [address] [place] [address] Vascular dementia without behavioral disturbance, psychotic disturbance, [...] 0 Active Potassium Chloride ER 20 MEQ TBCRIndications:Seal Extrusion Operator pancho diastolic heart failure (HCC) Take [...] 12/26/2018 Hyperparathyroidism, 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 Project # [id number], ELECTROTYPER HELPER: Norman Wetzel MD. CRC: NANCY Harper. SUMMARY: To test the hypothesis that Evacetrapib 130 mg, in comparison to placebo, reduces the risk of major adverse coronary events in high-risk vascular disease patients. CONTACTS: During normal business hours, contact study staff at ; after hours Unit Controller via the [facility] hospital mixing operator [phone]. 24-hour Global Study Helpline: [phone]. Lipid levels should not be ordered/obtained while this subject is in the Accelerate study. Lipids are being managed in a blinded fashion. If lipid levels are inadvertently obtained, it is important that test results are NOT provided to the patient, study doctor, pool coordinator, or other study team members. Restricted meds while in the study: 1) niacin > 250 mg, 2) gemfibrozil with a potent [id number]. Osteoporosis 08/27/2011 08/03/2016 Double vision 06/15/2011 08/03/2016 [...] Failure Taxonomy Protocol. Atrial fibrillation 02/04/2004 03/31/19 Overview: S/P CARDIOVERSION BY DR. WETZEL regional intermodal truck driver current use of ant icoagulant therapy 02/04/2004 [...] mRNA, LNP-s, No Pre serve, 2-Dose Series (LOGIDOC-Solutions) 12/03/2020,04/18/2020,03/28/2020 Covid-19, Mrna, Lnp-s, Pf, B ivalent, 30 Mcg, IM, 12 yrs and above (LOGIDOC-Solutions) 02/03/2022 Pneumococcal Conjugate Vacc, 13 Valent (Prevnar) [...] 04/14/2023 1:30 PM EST Office Visit Cardiology, [facility] [address] [place] [address] Norman Wetzel MD [address] [place] [address] 06/27/2023 2:00 PM EDT Office Visit [facility] [address] [place] [phone] Lamin Malcolm MD [address] [place] [address], [place] [phone] Pending Results Name Type Priority Associated Diagnoses [...] dementia severity (HCC) 02/25/2023 2:53 PM EST Health Maintenance Due Date Last Done Comments Depression Screening 08/05/2022 08/05/2021 COVID-19 Vaccine (5 - 2022-2 4 season) 2022 02/03/2022, 12/03/2020, 04/18/2020, Additional history exists Influenza Vaccine (FLU shot) (#1) 2022 11/06/2021, 12/10/2020, 10/30/2019, Additional history exists Zoster Vaccines Completed 08/23/2018, 10/22, 12/31/2011 documented as of this encounter Medical Devices Implanted Type Area Billing Machine Operator Device Identifier Shelf Expiration Date Model / Serial / Lot Stent Complete Ma 6x60 - [id number] Implanted:Qty: 1 on 04/25/2015 by Miguel Richardson MD at OR [facility] Left: Femoral Artery [employer] : VASCULAR 01/26/2017 [id number] / / [id number] Cement Bone Lv G 1119-140-01 - [id number] Implanted:Qty: 1 on 05/04/2015 by Mychal Tovar MD at OR [facility] Left: Groin [employer] 11/20/2017 00-1119-14 0- / / [id number] Cement Bone Lv G 1119-140-01 - [id number] Implanted:Qty: 1 on 05/06/2015 by Miguel Richardson MD at OR [facility] Left: Groin [employer] 08/20/2018-1119-14 0- / / [id number] Description:5 beads right gr oin Duraclip 16mm Xlg Repostn - [id number] Implanted:Qty: 4 on 12/08/2021 by Nicky Ferrer MD at OR [facility] [employer] 03/03/2024 [id number] / / [id number] documented as of this encounter Visit Diagnoses Diagnosis Vascular dementia without behavioral disturbance, psychotic disturbance, mood disturbance, or anxiety, unspecified dementia severity (HCC) Longstanding persistent atrial fibrillation (HCC) documented in this encounter Advance Directives Documents on File Type Date Recorded Patient New Car Get Ready Mechanic Expl anation Advance Directives and Livin g Will 07/14/2015 LIVING WILL Advance Directives and Livin g Will 07/14/2015 ADVANCE DIRECTIVE Power of Stroke Coordinator 07/14/2015 POWER OF A TTORNEY Latest [...] the patient have Health Care Power of Stroke Coordinator? Yes, in chart and reviewed as current Full Code 07/27/2015 12:46 AM 08/02/2015 5:42 PM This order reflects the patients wishes and were consensually agreed upon. Full Code 07/09/2015 1:41 PM 07/10/2015 5:03 PM Question Answer Comments Discussion of Advance Directives occurred with: Not Discussed Does the patient have a Living Will? No Does the patient have Health Care Power of Stroke Coordinator? No Full Code 05/05/2015 1:09 AM 05/16/2015 3:48 PM This order reflects the patients wishes and were consensually agreed upon. Question Answer Comments Discussion of Advance Directives occurred with: Not Discussed Does the patient have a Living Will? No Does the patient have Health Care Power of Stroke Coordinator? No Care Teams Fire Boss Relationship Specialty Start Date End Date Lamin Malcolm MD [address] [facility] [place] [place] [address] PCP - General Family Medicine 04/10/18 documented as of this encounter
--- OUTSIDE RECORDS SUMMARY | 2023-04-21 12:52 | External Medical Summary ---
Author Name Unknown Address Unknown Organization [id number]:[place] [place] [address] [place] [address] [place] [address] Laboratory Report Ordering Provider Test Date Status MARIBELL GOOD 02/25/2023 14:53:30 Final Observation Date Value Abnormality Reference (Units ) Status TSH 02/25/2023 14:53:30 4.32 Above high normal 0. 27-4.20 (uIU/mL) Final Performing Location LABORATORY [facility] - [address] [place] [address]
--- OUTSIDE RECORDS SUMMARY | 2023-04-21 12:52 | External Medical Summary | Summary of Care ---
Author Name Unknown Organization [facility] Address [address] [place] [address] Phone [phone] Care Team Providers Care Pumping Supervisor Name Role Phone Lamin Malcolm MD Primary Care Provider [phone] Encounter Details Date Type Department Care Team (Late st Contact Info) Description 02/25/2023 Telephone Pharmacy, [address] [address] [facility] [address] [place] [address] Allergies No known active allergiesdocumented as of [...] 0 Active Potassium Chloride ER 20 MEQ TBCRIndications:Maintenance Mechanic Millwright pancho diastolic heart failure (HCC) Take 1 [...] 12/26/2018 Hyperparathyroidism, 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 Project # [id number], GLAZING SUPERINTENDENT: Norman Wetzel MD. CRC: NANCY Harper. SUMMARY: To test the hypothesis that Evacetrapib 130 mg, in comparison to placebo, reduces the risk of major adverse coronary events in high-risk vascular disease patients. CONTACTS: During normal business hours, contact study staff at ; after hours Book Solicitor via the [facility] hospital posting machine operator [phone]. 24-hour Global Study Helpline: [phone]. Lipid levels should not be ordered/obtained while this subject is in the Accelerate study. Lipids are being managed in a blinded fashion. If lipid levels are inadvertently obtained, it is important that test results are NOT provided to the patient, study doctor, plan coordinator, or other study team members. Restricted meds while in the study: 1) niacin > 250 mg, 2) gemfibrozil with a potent [id number]. Osteoporosis 08/27/2011 08/03/2016 Double vision 06/15/2011 08/03/2016 [...] 12 Overview: S/P CARDIOVERSION BY DR. WETZEL alf current use of ant icoagulant therapy 02/04/2004 [...] mRNA, LNP-s, No Pre serve, 2-Dose Series (Operative [employer]) 12/03/2020,04/18/2020,03/28/2020 Covid-19, Mrna, Lnp-s, Pf, B ivalent, [...] encounter Miscellaneous Notes * Telephone Encounter - Vince Newton [facility] - 02/25/2023 4:12 PM EST [facility] will f/u with results on Tuesday. Will place referral for GML at that time. Will likely transition patient to [facility] for future telephonic management. Vince Newton, PharmD, BCACP, [facility] Clinical Pharmacist 02/25/2023, 4:13 PM * Telephone Encounter - Vince Newton [facility] - 02/25/2023 4:12 PM EST ----- Message from Lamin Malcolm MD sent at 02/25/2023 4:03 PM EST ----- Pt is on chronic Coumadin. He was seen in office and I ordered INR with his other blood work. His asked if it was possible for future INR's to be done via home phlebotomy. He has developeddementia . Overall not doing very well. Thanks, Lamin documented in this encounter Plan of Treatment Upcoming Encounters Date Type Department Care Team (Late st Contact Info) Description 02/28/2023 7:00 AM EST Anticoagulation Pharmacy, [address] [address] [facility] [address] [place] [address] 04/14/2023 1:30 PM EST Office Visit Cardiology, [facility] [address] [place] [address] Norman Wetzel MD [address] [place] [address] 06/27/2023 2:00 PM EDT Office Visit [facility] [address] [facility], [place] [address] Lamin Malcolm MD [address] [facility] [address] Health Maintenance Due Date Last Done Comments Depression Screening 08/05/2022 08/05/2021 COVID-19 Vaccine (2022-2 4 season) 2022 02/03/2022, 12/03/2020, 04/18/2020, Additional history exists Influenza Vaccine (FLU shot) (#1) 2022 11/06/2021, 12/10/2020, 10/30/2019, Additional history exists Zoster Vaccines Completed 08/23/2018, 10/22, 12/31/2011 documented as of this encounter Medical Devices Implanted Type Area Copyholder Device Identifier Shelf Expiration Date Model / Serial / Lot Stent Complete Ks 6x60 - [id number] Implanted:Qty: 1 on 04/25/2015 by Miguel Richardson MD at OR [facility] Left: Femoral Artery [employer] : VASCULAR 01/26/2017 [id number] / / [id number] Cement Bone Lv G 1119-140-01 - [id number] Implanted:Qty: 1 on 05/04/2015 by Mychal Tovar MD at OR [facility] Left: Groin [employer] 11/20/20171119-14 0- / / [id number] Cement Bone Lv G 1119-140-01 - [id number] Implanted:Qty: 1 on 05/06/2015 by Miguel Richardson MD at OR [facility] Left: Groin [employer] 08/20/20181119-14 0- / / [id number] Description:5 beads right gr oin Duraclip 16mm Xlg Repostn - [id number] Implanted:Qty: 4 on 12/08/2021 by Nicky Ferrer MD at OR [facility] [employer] 03/03/2024 [id number] / / [id number] documented as of this encounter Visit Diagnoses Diagnosis Longstanding persistent atrial fibrillation (HCC)- Primary History of CVA (cerebrovascular accident) Transient ischemic attack (TIA), and cerebral infarction without residual deficits CEREBROVASCULAR DZ, POST-STROKE Cerebral atherosclerosis documented in this encounter Advance Directives Documents on File Type Date Recorded Patient Reference Data Expert Expl anation Advance Directives and Livin g Will 07/14/2015 LIVING WILL Advance Directives and Livin g Will 07/14/2015 ADVANCE DIRECTIVE Power of Ceo And Co Founder 07/14/2015 POWER OF A TTORNEY Latest Code [...] the patient have Health Care Power of Ceo And Co Founder? Yes, in chart and reviewed as current Full Code 07/27/2015 12:46 AM 08/02/2015 5:42 PM This order reflects the patients wishes and were consensually agreed upon. Full Code 07/09/2015 1:41 PM 07/10/2015 5:03 PM Question Answer Comments Discussion of Advance Directives occurred with: Not Discussed Does the patient have a Living Will? No Does the patient have Health Care Power of Ceo And Co Founder? No Full Code 05/05/2015 1:09 AM 05/16/2015 3:48 PM This order reflects the patients wishes and were consensually agreed upon. Question Answer Comments Discussion of Advance Directives occurred with: Not Discussed Does the patient have a Living Will? No Does the patient have Health Care Power of Ceo And Co Founder? No Care Teams Pumping Supervisor Relationship Specialty Start Date End Date Lamin Malcolm MD [address] [place] [address] PCP - General Family Medicine 04/10/18 documented as of this encounter
--- OUTSIDE RECORDS SUMMARY | 2023-04-21 12:52 | External Medical Summary ---
Author Name Unknown Address Unknown Organization K01:[facility] - [address] [place] [address] Laboratory Report Ordering Provider Test Date Status MARIBELL GOOD 02/25/2023 14:53:30 Final Observation Date Value Abnormality Reference (Units ) Status T4, Free 02/25/2023 14:53:30 1.1 0.9-1.7 (n g/dL) Final Performing Location [facility] [address] [facility] [address]
--- OUTSIDE RECORDS SUMMARY | 2023-04-21 12:52 | External Medical Summary ---
Author Name Unknown Address Unknown Organization K01:[facility] - [address] [place] [address] Laboratory Report Ordering Provider Test Date Status MARIBELL GOOD 02/25/2023 14:53:30 Final Observation Date Value Abnormality Reference (Units ) Status Vitamin B12 02/25/2023 14:53:30 [id number] (pg/mL) Final Performing Location [facility] - [address] [place] [address]
--- OUTSIDE RECORDS SUMMARY | 2023-04-21 12:52 | External Medical Summary | Summary of Care ---
Author Name Unknown Organization [facility] Address [address] [place] [address] Phone [phone] Care Team Providers Care Taping Machine Operator Name Role Phone Lamin Malcolm MD Primary Care Provider [phone] Encounter Details Date Type Department Care Team (Late st Contact Info) Description 02/27/2023 Telephone Family Practice [facility] [address] [place] [address] Lamin Malcolm MD [facility] [place] [address] Allergies No known active allergiesdocumented [...] 0 Active Potassium Chloride ER 20 MEQ TBCRIndications:Repairer Hairspring pancho diastolic heart failure (HCC) Take 1 [...] 12/26/2018 Hyperparathyroidism, 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 Project # [id number], FISH AND GAME WARDEN: Norman Wetzel MD. CRC: NANCY Harper. SUMMARY: To test the hypothesis that Evacetrapib 130 mg, in comparison to placebo, reduces the risk of major adverse coronary events in high-risk vascular disease patients. CONTACTS: During normal business hours, contact study staff at ; after hours Last Chalker via the [facility] hospital tucking machine operator [phone]. 24-hour Global Study Helpline: [phone]. Lipid levels should not be ordered/obtained while this subject is in the Accelerate study. Lipids are being managed in a blinded fashion. If lipid levels are inadvertently obtained, it is important that test results are NOT provided to the patient, study doctor, retail pricing coordinator, or other study team members. Restricted meds while in the study: 1) niacin > 250 mg, 2) gemfibrozil with a potent [id number]. Osteoporosis 08/27/2011 08/03/2016 Double vision 06/15/2011 08/03/2016 [...] 12 Overview: S/P CARDIOVERSION BY DR. WETZEL terminal make up operator current use of ant icoagulant therapy 02/04/2004 [...] mRNA, LNP-s, No Pre serve, 2-Dose Series (P4RC) 12/03/2020,04/18/2020,03/28/2020 Covid-19, Mrna, Lnp-s, Pf, B ivalent, 30 Mcg, IM, 12 yrs and above (P4RC) 02/03/2022 Pneumococcal Conjugate Vacc, 13 Valent (Prevnar) [...] encounter Miscellaneous Notes * Telephone Encounter - Lamin Malcolm MD [...] 04/14/2023 1:30 PM EST Office Visit Cardiology, [facility] [address] [facility] [place] [address] Norman Wetzel MD [address] [facility] [place] [address] 06/27/2023 2:00 PM EDT Office Visit [facility] [address] [place] [address] Lamin Malcolm MD [address] [place] [address] Scheduled Orders Name Type Priority Associated Diagnoses [...] this encounter Medical Devices Implanted Type Area Flying I Instructor Device Identifier Shelf Expiration Date Model / Serial / Lot Stent Complete Sc 6x60 - [id number] Implanted:Qty: 1 on 04/25/2015 by Miguel Richardson MD at OR [facility] Left: Femoral Artery [employer] : VASCULAR 01/26/2017 [id number] / / [id number] Cement Bone Lv G 1119-140-01 - [id number] Implanted:Qty: 1 on 05/04/2015 by Mychal Tovar MD at OR [facility] Left: Groin [employer] 11/20/2017 00-1119-14 0- / / [id number] Cement Bone Lv G 1119-140-01 - [id number] Implanted:Qty: 1 on 05/06/2015 by Miguel Richardson MD at OR [facility] Left: Groin [employer] 08/20/2018-1119-14 0- / / [id number] Description:5 beads right gr oin Duraclip 16mm Xlg Repostn - [id number] Implanted:Qty: 4 on 12/08/2021 by Nicky Ferrer MD at OR [facility] [employer] 03/03/2024 [id number] / / [id number] documented as of this encounter Visit Diagnoses Diagnosis Acquired hypothyroidism- Primary Unspecified hypothyroidism documented in this encounter Advance Directives Documents on File Type Date Recorded Patient Supervisor Public Health Nursing Expl anation Advance Directives and Livin g Will 07/14/2015 LIVING WILL Advance Directives and Livin g Will 07/14/2015 ADVANCE DIRECTIVE Power of Coating Machine Helper 07/14/2015 POWER OF A TTORNEY Latest Code [...] the patient have Health Care Power of Coating Machine Helper? Yes, in chart and reviewed as current Full Code 07/27/2015 12:46 AM 08/02/2015 5:42 PM This order reflects the patients wishes and were consensually agreed upon. Full Code 07/09/2015 1:41 PM 07/10/2015 5:03 PM Question Answer Comments Discussion of Advance Directives occurred with: Not Discussed Does the patient have a Living Will? No Does the patient have Health Care Power of Coating Machine Helper? No Full Code 05/05/2015 1:09 AM 05/16/2015 3:48 PM This order reflects the patients wishes and were consensually agreed upon. Question Answer Comments Discussion of Advance Directives occurred with: Not Discussed Does the patient have a Living Will? No Does the patient have Health Care Power of Coating Machine Helper? No Care Teams Taping Machine Operator Relationship Specialty Start Date End Date Lamin Malcolm MD [address] [place] [address] PCP - General Family Medicine 04/10/18 documented as of this encounter
--- OUTSIDE RECORDS SUMMARY | 2023-04-21 12:52 | External Medical Summary ---
Author Name Unknown Address Unknown Organization K01:LABORATORY [facility] - [address] [facility] [address] Laboratory Report Ordering Provider Test Date Status MARIBELL GOOD 02/25/2023 14:53:30 Final Warfarin Therapy
INR: 2 .0-3.0 conventional anticoagulation
INR: 2.5- 3.5 high intensity anticoagulation Observation Date Value Abnormality Reference (Units ) Status PT 02/25/2023 14:53:30 22.5 Above high normal 11 .6-15.2 (seconds) Final INR 02/25/2023 14:53:30 2.0 Above high normal 0. 8-1.2 Final Performing Location [facility] [address] [facility] [address]
--- OUTSIDE RECORDS SUMMARY | 2023-04-21 12:52 | External Medical Summary | Summary of Care ---
Author Name Unknown Organization [facility] Address [address] [place] [address] Phone [phone] Care Team Providers Care Brazing Machine Setter Name Role Phone Lamin Malcolm MD Primary Care Provider [phone] Reason for Referral * Precert (Within 10 days (routine)) - Pending Review Specialty Diagnoses / Procedures Referred By Contac t Referred To Contact Radiology Diagnoses Vascular dementia without behavioral disturbance, psychotic disturbance, mood disturbance, or anxiety, unspecified dementia severity (HCC) Procedures CT HEAD/BRAIN WO CONTRAST Lamin Malcolm MD [address] [place] [address] Referral ID Status Reason Start Date Expiration Date V isits Requested Visits Authorized [id number] Pending Review 03/04/2023 999 999 Reason for Visit * Reason Comments Status Check Status check Encounter Details Date Type Department Care Team (Late st Contact Info) Description 02/25/2023 2:00 PM EST Office Visit [facility] [address] [place] [address] Lamin Malcolm MD [address] [place] [address] Risk and functional assessment*; Vascular [...] 0 Active Potassium Chloride ER 20 MEQ TBCRIndications:Record Changer pancho diastolic heart failure (HCC) Take 1 [...] 12/26/2018 Hyperparathyroidism, 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 Project # [id number], HAND MOLDER: Norman Wetzel MD. CRC: NANCY Harper. SUMMARY: To test the hypothesis that Evacetrapib 130 mg, in comparison to placebo, reduces the risk of major adverse coronary events in high-risk vascular disease patients. CONTACTS: During normal business hours, contact study staff at ; after hours Parish Worker via the [facility] hospital asphalt tamping machine operator [phone]. 24-hour Global Study Helpline: [phone]. Lipid levels should not be ordered/obtained while this subject is in the Accelerate study. Lipids are being managed in a blinded fashion. If lipid levels are inadvertently obtained, it is important that test results are NOT provided to the patient, study doctor, human resources benefits coordinator, or other study team members. Restricted meds while in the study: 1) niacin > 250 mg, 2) gemfibrozil with a potent [id number]. Osteoporosis 08/27/2011 08/03/2016 Double vision 06/15/2011 08/03/2016 [...] mRNA, LNP-s, No Pre serve, 2-Dose Series ([employer]ise [employer]) 12/03/2020,04/18/2020,03/28/2020 Covid-19, Mrna, Lnp-s, Pf, B ivalent, [...] that mean climbing, even on a stepstool. Bitly Patient Education Copyright 2008 - 2010 Bitly except where otherwise noted. Treating Urinary Incontinence [...] CVA.He follows closely with Dr. Sorensen with [facility] nephrology. He has elected not to [...] 2 of his prior vascular surgeons at [facility] have left and the other part is [...] fibrillation (HCC) I48.91 PVD (peripheral vascular disease) ([facility]) I73.9 CKD (chronic kidney disease) stage 4, GFR 15-29 ml/min ([facility]) N18.4 History of CVA (cerebrovascular accident) Z86.73 Cellulitis of left leg L03.116 Hypertensive heart and kidney disease with chronic diastolic congestive heart failure and stage 4 chronic kidney disease (HCC) I13.0, I50.32, N18.4 Asymptomatic bilateral carotid artery stenosis I65.23 S/P carotid endarterectomy Z98.890 Chronic atrial fibrillation (HCC) I48.20 Hyperparathyroidism, 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 Atherosclerosis of [place] artery of both lower extremities with intermittent claudication ([facility]) I70.213 Longstanding persistent atrial fibrillation ([facility]) I48.11 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 Pulmonary nodules R91.8 [...] 04/14/2023 1:30 PM EST Office Visit Cardiology, [facility] [address] [facility] [place] [address] Norman Wetzel MD [address] [facility] [place] [address] 06/27/2023 2:00 PM EDT Office Visit [facility] [address] [place] [address] Lamin Malcolm MD [address] [place] [address] Pending Results Name Type Priority Associated Diagnoses [...] this encounter Medical Devices Implanted Type Area Entrepreneur Device Identifier Shelf Expiration Date Model / Serial / Lot Stent Complete [place] 6x60 - [id number] Implanted:Qty: 1 on 04/25/2015 by Miguel Richardson MD [place] [facility] Left: Femoral Artery [employer] : VASCULAR 01/26/2017 [id number] / / [id number] Cement Bone Lv G 1119-140-01 - [id number] Implanted:Qty: 1 on 05/04/2015 by Mychal Tovar MD at [place] [facility] Left: Groin [employer] 11/20/2017-1119-14 0- / / [id number] Cement Bone Lv G 1119-140-01 - [id number] Implanted:Qty: 1 on 05/06/2015 by Miguel Richardson MD [place] [facility] Left: Groin [employer] 08/20/2018-1119-14 0-01 / / [id number] Description:5 beads right gr oin Duraclip 16mm Xlg Repostn - [id number] Implanted:Qty: 4 on 12/08/2021 by Nicky Ferrer MD at OR [facility] [employer] 03/03/2024 [id number] / / [id number] documented as of this encounter Visit Diagnoses Diagnosis Risk and functional assessment- Primary Screening for unspecified condition Vascular dementia without behavioral disturbance, psychotic disturbance, mood disturbance, or anxiety, unspecified dementia severity (HCC) Longstanding persistent atrial fibrillation (HCC) documented in this encounter Advance Directives Documents on File Type Date Recorded Patient Grade Setter Expl anation Advance Directives and Livin g Will 07/14/2015 LIVING WILL Advance Directives and Livin g Will 07/14/2015 ADVANCE DIRECTIVE Power of Doorperson 07/14/2015 POWER OF A TTORNEY Latest Code [...] the patient have Health Care Power of Doorperson? Yes, in chart and reviewed as current Full Code 07/27/2015 12:46 AM 08/02/2015 5:42 PM This order reflects the patients wishes and were consensually agreed upon. Full Code 07/09/2015 1:41 PM 07/10/2015 5:03 PM Question Answer Comments Discussion of Advance Directives occurred with: Not Discussed Does the patient have a Living Will? No Does the patient have Health Care Power of Doorperson? No Full Code 05/05/2015 1:09 AM 05/16/2015 3:48 PM This order reflects the patients wishes and were consensually agreed upon. Question Answer Comments Discussion of Advance Directives occurred with: Not Discussed Does the patient have a Living Will? No Does the patient have Health Care Power of Doorperson? No Care Teams Brazing Machine Setter Relationship Specialty Start Date End Date Lamin Malcolm MD [address] [facility] [place] [address] PCP - General Family Medicine 04/10/18 documented as of this encounter
--- NOTE | 2023-04-21 15:13 | Cardiology Consultation ---
Date of Consultation April 21, 2023 Assessment & Plan (1) Acute on chronic diastolic (congestive) heart failure: (2) Chronic atrial fibrillation: (3) Chronic kidney disease, stage IV (severe): (4) Anemia: (5) CAD (coronary artery disease): (6) S/P CABG x 3: (7) Elevated troponin: Plan Assessment: 82 year-old medically complex male admitted for acute on chronic diastolic heart failure. CKG stage IV with refusal of dialysis. Plan: 1. Acute on chronic diastolic heart failure 2. chronic Atrial fibrillation 3. CKG stage IV - patient presents with modest volume overload, reports compliance on all medication therapies, but has worsening renal function (followed by [facility] [place] [facility]ph[facility]) -Patient is currently making urine and has a -1300ml fluid output today. -Requested nephrology referral and would appreciate input. -At this time, continue with bumex 1mg IV BID -Known history of A-fib with chronic AC therapy with warfarin. Denies any mila bleedin concerns. -Continue Toprol xl, potassium supplementation as part of HF regimen. -Close monitoring of renal function and serum electrolytes with goal serum K> 4.0 and serum mag 2.0. -Echocardiogram pending to assess overall structure and function. -Left lower extremity slightly larger than right with noted erythema. Denies pain, no warmth upon palpation. low suspicion for DVT given chronic warfarin therapy with therapeutic INR. -Concern for developing cellulitis due to volume overload. -Patient currently on doxycycline and vanco due to recent C-diff colitis. 4. Anemia Chronic anemia, continued management per primary team. 5. CAD 6. S/P CABG x3 7. Elevated troponin -patient denies any chest pain or anginal like symtoms. -Mild troponin elevation likely in response to demand due to acute HF and kidney diseae. -Troponin trend flat - Continue Toprol xl, Crestor as part regimen. Case has been discussed with Dr. Mcbride. Further recommendations regarding plan of care as per his assessment. I spent a total of 40 minutes on the date of service in preparation, delivery, documentation of the care provided to the patient excluding any time spent in the performance of separately billed services. MAMADOU Stevenson [facility] Cardiology [facility] Supervising Physician Co-Signing Physician Notes I have reviewed the advance practitioner's documentation, and I agree with, and take responsibility for the plan of care. 82-year-old male presents to the hospital with worsening lower extremity edema and dyspnea on exertion. Hard of hearing and a poor historian. Significant past cardiovascular history noted above. Followed by nephrology due to CKD stage IV. Denies any symptoms at rest. present at bedside. Offers no additional concerns/complaints. Echocardiogram: LVEF 55-60%, basal septal wall motion abnormality. Severe biatrial enlargement. Moderate pulmonary hypertension. PE: VSS. GEN: NAD, AAOx3. Heart: Irregular rhythm, normal S1-S2. 1/6 low pitched early peaking systolic ejection murmur heard best at the right second intercostal space. Lungs: Diminished breath sounds at the bases bilateral. Extremities: 2-3+ bilateral lower extremity pitting edema. A/P: 82-year-old male with acute on chronic heart failure with preserved ejection fraction and cardiorenal syndrome. Continue IV diuresis, Bumex 1 mg twice daily. Monitor fluid balance, daily weight, GFR, and electrolytes. Patient followed by nephrology. Per chart review, he has declined possibility of hemodialysis. Continue other cardiovascular medications including warfarin, clopidogrel, metoprolol succinate, and rosuvastatin. I spent a total of 25 minutes on the date of service in preparation, delivery, and documentation of the care provided to this patient, excluding any time spent in the performance of separately billed services. History of Present Illness Reason for Consultation: acute CHF Requesting Physician: Francisca slater Attending Physician: Olayinka Grace MD History of Present Illness HPI: Patient is a 82 year old male with PMHx significant for HTN, dyslipidemia, PVD, CAD, TIA, CKD IV, chronic atrial fibrillation, on chronic anticoagulation, and chronic anemia that presents with several days of "legs feeling heavy" and worsening lower extremity edema. Left worse than right. He also notices that his left leg has some redness, but denies any tenderness or warmth upon touch Of note, patient is on chronic anticoagulation for history of A-fib. Reports compliance on all medications. He has a history of CKD stage IV, follows with Dr. Rodrigues. Patient is very adamant he will not pursue dialysis EKG on admission demonstrates A-fib, rates 69bpm. non-specific change in ST segment in inferior leads. T wave inversion present in lateral lead, cited previously. Chest xray suggest cardiomegaly with interval development of mild interstitial pulmonary edema. and trace bilateral pleural effusions Allergies Allergy/AdvReac Type Severity Reaction Status Date / Time No Known Allergies Allergy Unknown Verified 04/20/23 16:58 Home Medications Medication Instructions Recorded Confirmed Type rosuvastatin 10 mg tablet (Crestor) 10 mg PO HS #30 tabs 09/20/18 04/20/23 Rx metoprolol succinate 25 mg 25 mg PO BID 02/26/19 04/20/23 History tablet,extended release 24 hr clopidogrel 75 mg tablet 75 mg PO QAM 09/08/21 04/20/23 History omeprazole 20 mg capsule,delayed 20 mg PO QAM 09/08/21 04/20/23 History release trazodone 50 mg tablet 50 mg PO HS 09/08/21 04/20/23 History vancomycin 125 mg capsule 125 mg PO QAM 09/08/21 04/20/23 History warfarin 2 mg tablet 4 mg PO 2XD 09/08/21 04/20/23 History multivitamin 1 tab PO DAILY 02/13/22 04/20/23 History Lactobacillus acidoph-L.bulgaricus 1 tab PO TIDM 02/17/22 04/20/23 History 1 million cell tablet potassium chloride 20 mEq 20 meq PO DAILY #90 tabs 07/16/22 04/20/23 Rx tablet,extended release(part/cryst) (Klor-Con M) bumetanide 1 mg tablet 1 mg PO DAILY 04/20/23 04/20/23 History levothyroxine 25 mcg tablet 25 mcg PO DAILY 04/20/23 04/20/23 History warfarin 2 mg tablet 2 mg PO .5XSWEEK 04/20/23 04/20/23 History Patient History Medical History (Updated 04/20/23 @ 20:17 by Joby Rowe DO) Chronic atrial fibrillation Cerebrovascular disease "s/p stroke Nov 2016" PVD (peripheral vascular disease) 2000 - right femoral endarterectomy, left femoral stent 2015 - left common femoral endarterectomy, left common deep femoral endarterectomy, left common and external iliac stent and angioplasty, left femoral and popliteal stent and angioplasty CAD (coronary artery disease) s/p CABG x3 (2003) Acute prerenal failure Weakness generalized Fall Fall Sinusitis, acute maxillary Recurrent Clostridioides difficile infection Reason for chronic vanco therapy Carotid artery disease left (2007) right (2010) GERD (gastroesophageal reflux disease) Hyperlipidemia Diverticular disease Colitis due to Clostridioides difficile Chronic kidney disease, stage IV (severe) Follows with [facility] [place] nephro (Dr. Rodrigues) Stroke 2017 treated with tPA - no residual effects Atrial fibrillation Follows Dr. Norman Wetzel Chronic diastolic (congestive) heart failure HTN (hypertension) Surgical History History of esophagogastroduodenoscopy (EGD) History of colonoscopy H/O vascular surgery 2001 - right femoral endarterectomy, left femoral stent 2016 - left common femoral endarterectomy, left common deep femoral endarterectomy, left common and external iliac stent and angioplasty, left femoral and popliteal stent and angioplasty History of CEA (carotid endarterectomy) left (2007) right (2010) S/P CABG x 3 Family History Other AAA (abdominal aortic aneurysm) Social History Smoking Status: Former smoker Tobacco Type: Cigarettes packs per day: 1.5; Second Hand Exposure: No; Do You Dip or Chew Tobacco: No; Hx Alcohol Use: No Hx Substance Use: No Preferred Language: Kiswahili Communication Ability: Effective Assistant Teacher Required: No Beliefs That Will Affect Care: None Current Living Situation: Spouse Feels Safe at Home: Yes Safety Concerns: Feels Safe At This Time Assistive Devices: Glasses, Hearing Aid - Bilateral and Walker Review of Systems Review of Systems: All systems reviewed & are unremarkable except as noted in HPI & below Physical Exam Constitutional: well developed, well nourished and + ill appearing; no acute distress Neck: normal visual inspection and trachea midline Respiratory: normal respiratory effort; no respiratory distress Auscultation: + diminished lung sounds (bilateral bases ) Cardiovascular: Rate/Rhythm: + irregularly irregular Heart Sounds: normal S1 and normal S2 Vessels: dorsalis pedis pulses present; no JVD Extremities: + edema (+2 BLE left worse than right) Skin: normal turgor and + erythema (left lower extremity ) Psychiatric: A+Ox3, euthymic affect (very hard of hearing ) Results & Data Vital Signs (Past 12 Hours) Vital Signs Temp Pulse Pulse Resp BP Pulse Ox O2 Del Method 04/21/23 13:29 68 04/21/23 11:40 37.0 C 69 16 134/51 L 98 Nasal Cannula 04/21/23 09:21 36.8 C 72 16 110/44 L 94 Nasal Cannula 04/21/23 07:46 54 L 04/21/23 06:13 75 18 161/66 H 96 Nasal Cannula 04/21/23 05:00 94 Nasal Cannula 04/21/23 04:59 88 L Room Air 04/21/23 04:36 70 16 159/59 H 97 Room Air O2 Flow Rate 04/21/23 13:29 04/21/23 11:40 2 04/21/23 09:21 2 04/21/23 07:46 04/21/23 06:13 2 04/21/23 05:00 2 04/21/23 04:59 04/21/23 04:36 Laboratory Results Cardiac Enzymes 04/20/23 04/20/23 04/20/23 Range/Units 15:50 18:35 22:51 AST 17 (13-39) U/L Troponin I High Sens 46.7 H 41.0 H 40.8 H (0-20) pg/ml B-Natriuretic Peptide 400 H (0-100) pg/ml Coagulation 04/20/23 04/21/23 Range/Units 15:50 03:53 PT 23.1 H 25.6 H (9.0-12.0) Seconds B-Natriuretic Peptide 400 H (0-100) pg/ml CBC 04/20/23 04/21/23 Range/Units 15:50 03:53 WBC 7.77 9.39 (4.8-10.8) K/ul RBC 3.82 L 3.41 L (4.70-6.10) M/uL Hgb 9.6 L 8.5 L (14.0-18.0) g/dl Hct 32.3 L 28.5 L (42.0-52.0) % Plt Count 299 282 (130-400) K/uL Neut # (Auto) 5.60 (1.40-6.50) K/uL Lymph # (Auto) 1.19 L (1.20-3.40) K/uL Ogle # (Auto) 0.88 H (0.11-0.59) K/uL Eos # (Auto) 0.04 (0.00-0.50) K/uL Baso # (Auto) 0.03 (0.00-0.20) K/uL Comprehensive Metabolic Panel 04/20/23 04/21/23 Range/Units 15:50 03:53 Sodium 133 L 134 L (136-145) mmol/L Potassium 5.1 4.4 (3.5-5.1) mmol/L Chloride 101 100 (98-107) mmol/L Carbon Dioxide 24 26 (21-32) mmol/L BUN 61 H 67 H (6-23) mg/dl Creatinine 3.46 H 3.54 H (0.6-1.4) mg/dl Glucose 119 H 80 (70-99(Fasting)) mg/dl Calcium 10.3 9.7 (8.6-10.3) mg/dl AST 17 (13-39) U/L ALT 12 (7-52) U/L Alkaline Phosphatase 107 H (34-104) U/L Total Protein 7.7 (6.0-8.3) gm/dl Albumin 3.6 (3.4-5.0) gm/dl Intake and Output 04/21/23 04/21/23 04/21/23 06:59 14:59 22:59 Output Total 925 / 1775 1300 / 1300 Balance -925 / -1775 -1300 / -1300 Output: Urine 925 / 1775 1300 / 1300
--- NOTE | 2023-04-21 15:13 | Nephrology Consultation ---
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 Started on Bumex 1 mg IV twice a day with decent response with diuresis, had more than 3 L of urine output since admission. Kidney function staying relatively stable close to baseline, creatinine 3.5-3.6, electrolyte acceptable. Has chronic anemia, hemoglobin has been low at 8.4. Overall reports feeling better. -- Continue on Bumex 1 mg IV twice a day, monitor intake and output, aim for net -0.5 to 1 L/day. Increase Bumex if needed. -- Strictly follow low sodium diet, keep leg elevated, start using compression stockings -- Iron study with a.m. lab, will need IV iron or Epogen based on iron store -- Will need close monitoring of kidney function and electrolyte while on IV diuretics and replace electrolyte as needed -- Continue conservative management of advanced CKD, ESKD as patient's wishes Thank you for allowing me to participate in your patient's care. It was a pleasure to see Anderson. History of Present Illness Reason for Consultation: Stage 4 CKD, volume overload, diuretic management Attending Physician: Olayinka Grace MD History of Present Illness Mr. Anderson Mcmahan is 82-year-old gentleman with PMH significant for stage IV CKD, HTN, dyslipidemia, PVD, CAD, chronic atrial fibrillation, chronic anemia admitted to the hospital with volume overload and worsening lower extremity edema. Nephrology consult was requested for diuretic management considering advanced CKD. EMR records are reviewed in detail during patient's visit. Patient's was at bedside who mainly provided the history. Anderson presented to ED yesterday with progressive worsening of lower extremity edema and some shortness of breath for several days. Initially on presentation he was hypoxic on room air but oxygen saturation improved with nasal cannula oxygen. Chest x-ray showed pulmonary vascular congestion and small bilateral pleural effusion. He was noted to have significant lower extremity edema and weight gain. He was started on Bumex 1 mg twice a day and he reports significant urine output, in fact had more than 3 L of urine output since admission. Kidney function is somewhat at baseline with creatinine around 3.5- 3.6 mg/dl, acceptable electrolyte with baseline creatinine variable from 3-4 mg/dl. Urinalysis with high-grade proteinuria. Albumin was 3.6. Hemoglobin has been low chronically, was 8.6 this morning. He denied any recent fever, chills. Noted occasional cough. Was not necessarily watching salt in diet. He has history of diastolic dysfunction, moderate concentric LVH, severe biatrial enlargement with EF 60 to 65%, been on Bumex 1 mg twice a day and during last follow-up with Dr. Rodrigues he was advised to monitor weight at home and increase diuretics to 2 mg twice a day for more than 3 pounds weight gain in a day. However, in the interim his diuretics dose was decreased to Bumex 1 mg daily, was not sure by whom. And over last few weeks he has been noticing progressive tense bilateral lower extremity edema to the point that legs are too heavy making it feel weak and difficult for him to walk. Has stage IV CKD, secondary to biopsy-proven FSGS with nephrotic range proteinuria. Baseline creatinine lately has been variable from 3-4 mg/dl. Had discussion with Dr. Rodrigues previously and Anderson decided to have conservative management of advanced CKD/ESKD and not consider dialysis. Blood pressure has been reasonable. Past medical history also significant for atherosclerotic disease, peripheral vascular disease, history of right carotid endarterectomy in 2010 and recent left carotid endarterectomy in 2007. CVA in 2017 without significant residual weakness. Had CABG done in 2003. Also had multiple intervention for lower extremity vasculature and femoral endarterectomy. History of A-fib, on anticoagulation. Ex-smoker. He reports feeling slightly better today compared to yesterday. Continues to have significant bilateral lower extremity edema however since responding well to diuretic. Denied shortness of breath, cough, fever or chills. No dysuria or gross hematuria. Allergies Allergy/AdvReac Type Severity Reaction Status Date / Time No Known Allergies Allergy Unknown Verified 04/20/23 16:58 Home Medications Medication Instructions Recorded Confirmed Type rosuvastatin 10 mg tablet (Crestor) 10 mg PO HS #30 tabs 09/20/18 04/20/23 Rx metoprolol succinate 25 mg 25 mg PO BID 02/26/19 04/20/23 History tablet,extended release 24 hr clopidogrel 75 mg tablet 75 mg PO QAM 09/08/21 04/20/23 History omeprazole 20 mg capsule,delayed 20 mg PO QAM 09/08/21 04/20/23 History release trazodone 50 mg tablet 50 mg PO HS 09/08/21 04/20/23 History vancomycin 125 mg capsule 125 mg PO QAM 09/08/21 04/20/23 History warfarin 2 mg tablet 4 mg PO 2XD 09/08/21 04/20/23 History multivitamin 1 tab PO DAILY 02/13/22 04/20/23 History Lactobacillus acidoph-L.bulgaricus 1 tab PO TIDM 02/17/22 04/20/23 History 1 million cell tablet potassium chloride 20 mEq 20 meq PO DAILY #90 tabs 07/16/22 04/20/23 Rx tablet,extended release(part/cryst) (Klor-Con M) bumetanide 1 mg tablet 1 mg PO DAILY 04/20/23 04/20/23 History levothyroxine 25 mcg tablet 25 mcg PO DAILY 04/20/23 04/20/23 History warfarin 2 mg tablet 2 mg PO .5XSWEEK 04/20/23 04/20/23 History Patient History Medical History (Updated 04/20/23 @ 20:17 by Joby Rowe DO) Chronic atrial fibrillation Cerebrovascular disease "s/p stroke Nov 2016" PVD (peripheral vascular disease) 2000 - right femoral endarterectomy, left femoral stent 2015 - left common femoral endarterectomy, left common deep femoral endarterectomy, left common and external iliac stent and angioplasty, left femoral and popliteal stent and angioplasty CAD (coronary artery disease) s/p CABG x3 (2003) Acute prerenal failure Weakness generalized Fall Fall Sinusitis, acute maxillary Recurrent Clostridioides difficile infection Reason for chronic vanco therapy Carotid artery disease left (2007) right (2010) GERD (gastroesophageal reflux disease) Hyperlipidemia Diverticular disease Colitis due to Clostridioides difficile Chronic kidney disease, stage IV (severe) Follows with [facility] [place] (Dr. Rodrigues) Stroke 2017 treated with tPA - no residual effects Atrial fibrillation Follows Dr. Norman Wetzel Chronic diastolic (congestive) heart failure HTN (hypertension) Surgical History History of esophagogastroduodenoscopy (EGD) History of colonoscopy H/O vascular surgery 2000 - right femoral endarterectomy, left femoral stent 2016 - left common femoral endarterectomy, left common deep femoral endarterectomy, left common and external iliac stent and angioplasty, left femoral and popliteal stent and angioplasty History of CEA (carotid endarterectomy) left (2007) right (2010) S/P CABG x 3 Family History Other AAA (abdominal aortic aneurysm) Social History Smoking Status: Former smoker Tobacco Type: Cigarettes packs per day: 1.5; Second Hand Exposure: No; Do You Dip or Chew Tobacco: No; Hx Alcohol Use: No Hx Substance Use: No Preferred Language: Romansh Communication Ability: Effective Horse Rancher Required: No Beliefs That Will Affect Care: None Current Living Situation: Spouse Feels Safe at Home: Yes Safety Concerns: Feels Safe At This Time Assistive Devices: Glasses, Hearing Aid - Bilateral and Walker Review of Systems Review of Systems: All systems reviewed & are unremarkable except as noted in HPI & below Physical Exam Constitutional: WD/WN, vitals as above no acute distress Eyes: + anicteric sclerae Neck: normal visual inspection Respiratory: normal respiratory effort; no respiratory distress and no cough Auscultation: + rales Cardiovascular: Rate/Rhythm: + irregularly irregular Heart Sounds: normal S1 and normal S2 Extremities: + edema (3 to 4 + b/l LE edema) Gastrointestinal (Abdomen): Inspection/Auscultation: abdomen normal to inspection Musculoskeletal: Extremities: extremities normal to inspection Skin: no rashes, warm and dry Neurologic: no focal motor deficits Psychiatric: Orientation: alert and oriented x 3 Affect: euthymic affect Results & Data Vital Signs (Past 12 Hours) Vital Signs Temp Pulse Pulse Resp BP Pulse Ox O2 Del Method 04/21/23 13:29 68 04/21/23 11:40 37.0 C 69 16 134/51 L 98 Nasal Cannula 04/21/23 09:21 36.8 C 72 16 110/44 L 94 Nasal Cannula 04/21/23 07:46 54 L 04/21/23 06:13 75 18 161/66 H 96 Nasal Cannula 04/21/23 05:00 94 Nasal Cannula 04/21/23 04:59 88 L Room Air 04/21/23 04:36 70 16 159/59 H 97 Room Air O2 Flow Rate 04/21/23 13:29 04/21/23 11:40 2 04/21/23 09:21 2 04/21/23 07:46 04/21/23 06:13 2 04/21/23 05:00 2 04/21/23 04:59 04/21/23 04:36 PG Care Time/CCT Total # of Minutes Spent Total Time Spent with Patient: Total time spent is greater than 50% in coordination of care (as documented) at patient's floor/unit and/or counseling patient: Coding Level of Care Code 96221 INT INP/OBS CARE 375MIN Diagnoses Chronic kidney disease, stage IV (severe) N18.4 Edema R60.9 Edema type: unspecified Shortness of breath R06.02 CHF (congestive heart failure) I50.9 Heart failure chronicity: unspecified Heart failure type: unspecified S/P CABG x 3 Z95.1 (2) Edema Edema type: unspecified Qualified Code(s): R60.9 - Edema, unspecified (4) CHF (congestive heart failure) Heart failure chronicity: unspecified Heart failure type: unspecified Tim lified Code(s): I50.9 - Heart failure, unspecified
[2023-04-22 05:21] LABS: Hematocrit (blood only) 30.4 % (42.0-52.0); Hemoglobin 9.3 g/dl (14.0-18.0); Mean Corpuscular Hemoglobin 25.1 pg (25.0-34.0); Mean Corpuscular Hgb Conc 30.6 g/dL (32.0-36.0); Mean Corpuscular Volume 82.2 fL (80.0-100.0); Mean Platelet Volume 8.9 fL (9.4-12.4); Platelet Count 300 K/uL (130-400); RDW Coefficient of Variation 17.2 % (11.5-14.5); RDW Standard Deviation 50.7 fL (36.4-46.3)
[2023-04-22 05:31] LABS: Albumin Level 3.4 gm/dl (3.4-5.0); Creatinine Clr Calc Pharmacy 19.3 ml/min; Est GFR (African American) 16.5 ml/min; Est GFR (Non-African American) 14.3 ml/min; Phosphorus 3.7 mg/dl (2.5-4.9); Potassium 4.8 mmol/L (3.5-5.1)
[2023-04-22 05:39] LABS: INR 2.3 (0.9-1.1); Prothrombin Time 23.5 Seconds (9.0-12.0)
--- NOTE | 2023-04-22 08:38 | Cardiology Progress Note ---
Date of Service April 22, 2023 Assessment & Plan (1) Acute on chronic diastolic (congestive) heart failure: (2) Chronic atrial fibrillation: (3) Chronic kidney disease, stage IV (severe): (4) Anemia: (5) CAD (coronary artery disease): (6) S/P CABG x 3: Plan Assessment: 82 year-old medically complex male admitted for acute on chronic diastolic heart failure. CKG stage IV with refusal of dialysis. Plan: 1. Acute on chronic diastolic heart failure 2. chronic Atrial fibrillation 3. CKG stage IV - patient presents with modest volume overload, reports compliance on all medication therapies, but has worsening renal function (followed by [facility] Nephrology) -Patient is currently making urine and has had a 7kg weight reduction. -Nephrology on consult which reports that this is likely due to a home reduced dose of his Bumex as well as dietary indiscretion -At this time, continue with Bumex 1mg IV BID today and plan to transition to PO Bumex in the AM. -Recommend application of compression stockings and elevation of legs when in bed. -Known history of A-fib with chronic AC therapy with warfarin. Denies any mila bleeding concerns. -Continue Toprol xl, potassium supplementation as part of HF regimen. -Close monitoring of renal function and serum electrolytes with goal serum K> 4.0 and serum mag 2.0. -Left lower extremity slightly larger than right with noted erythema. Denies pain, no warmth upon palpation. low suspicion for DVT given chronic warfarin therapy with therapeutic INR. -Concern for developing cellulitis due to volume overload. -Patient currently on doxycycline and vanco due to recent C-diff colitis. 4. Anemia Chronic anemia, continued management per primary team. 5. CAD 6. S/P CABG x3 7. Elevated troponin -patient denies any chest pain or anginal like symptoms. -Mild troponin elevation likely in response to demand due to acute HF and kidney disease. -Troponin trend flat - Continue Toprol xl, Crestor as part regimen. Case has been discussed with Dr. Mcbride. Further recommendations regarding plan of care as per his assessment. I spent a total of 30 minutes on the date of service in preparation, delivery, documentation of the care provided to the patient excluding any time spent in the performance of separately billed services. MAMADOU Stevenson [facility] Cardiology [facility] Admission and Anticipated Discharge Date Admission Date: April 20, 2023 Supervising Physician Co-Signing Physician Notes I have reviewed the advance practitioner's documentation, and I agree with, and take responsibility for the plan of care. 82-year-old male admitted with acute on chronic heart failure with preserved ejection fraction and cardiorenal syndrome in the setting of CKD stage IV. Resting comfortably today. Edema improved. No chest pain, orthopnea, or PND. present at bedside. Offers no additional concerns/complaints. Echocardiogram: LVEF 55-60%, basal septal wall motion abnormality. Severe biatrial enlargement. Moderate pulmonary hypertension. PE: VSS. GEN: NAD, AAOx3. Heart: Irregular rhythm, normal S1-S2. 1/6 low pitched early peaking systolic ejection murmur heard best at the right second intercostal space. Lungs: Diminished breath sounds at the bases bilateral. Extremities: 2+ bilateral lower extremity pitting edema. A/P: Acute on chronic heart failure with preserved ejection fraction and cardiorenal syndrome in setting of CKD stage IV. Continue IV diuresis, Bumex 1 mg twice daily. Monitor fluid balance, daily weight, GFR, and electrolytes. Patient declines possibility of hemodialysis. Continue other cardiovascular medications including warfarin, clopidogrel, metoprolol succinate, and rosuvastatin. Antibiotics as per internal medicine. I spent a total of 30 minutes on the date of service in preparation, delivery, and documentation of the care provided to this patient, excluding any time spent in the performance of separately billed services. Subjective 04/22/23: patient was seen and examined today in follow up. He is sitting upon the side of the bed reporting feeling well. He is visiting with his . Denies any chest pain, pressure, palpitations, shortness of breath, PND, pre- syncope or syncope. Cr. with slight increase 3.72. [facility] nephrology follows this patient. He demonstrates a 7 kg weight reduction. Review of telemetry demonstrates A-fib rates 70s. labs/diagnostics, notes, vitals and telemetry reviewed. Physical Exam Constitutional: well developed, well nourished and + ill appearing; no acute distress Neck: normal visual inspection and trachea midline Respiratory: normal respiratory effort; no respiratory distress Auscultation: lungs clear to auscultation bilaterally Cardiovascular: Rate/Rhythm: + irregularly irregular Heart Sounds: normal S1 and normal S2 Vessels: dorsalis pedis pulses present; no JVD Extremities: + edema (+1 BLE left worse than right) Skin: normal turgor and + erythema (left lower extremity ) Psychiatric: A+Ox3, euthymic affect (very hard of hearing ) Results & Data Vital Signs (Past 12 Hours) Vital Signs Temp Pulse Pulse Resp BP Pulse Ox O2 Del Method 04/22/23 08:24 36.6 C 83 18 152/74 H 94 Room Air 04/22/23 03:49 36.6 C 74 17 142/69 H 93 Room Air 04/21/23 22:45 36.6 C 79 18 152/70 H 94 Room Air 04/21/23 21:52 71 Laboratory Results Coagulation 04/22/23 Range/Units 04:50 PT 23.5 H (9.0-12.0) Seconds CBC 04/22/23 Range/Units 04:50 WBC 8.70 (4.8-10.8) K/ul RBC 3.70 L (4.70-6.10) M/uL Hgb 9.3 L (14.0-18.0) g/dl Hct 30.4 L (42.0-52.0) % Plt Count 300 (130-400) K/uL Comprehensive Metabolic Panel 04/22/23 Range/Units 04:50 Sodium 137 (136-145) mmol/L Potassium 4.8 (3.5-5.1) mmol/L Chloride 103 (98-107) mmol/L Carbon Dioxide 28 (21-32) mmol/L BUN 67 H (6-23) mg/dl Creatinine 3.72 H (0.6-1.4) mg/dl Glucose 106 H (70-99(Fasting)) mg/dl Calcium 10.0 (8.6-10.3) mg/dl Albumin 3.4 (3.4-5.0) gm/dl Intake and Output 04/21/23 04/22/23 04/22/23 22:59 06:59 14:59 Intake Total 370 / 530 160 / 530 110 / 110 Output Total 1500 / 2800 Balance 370 / -2270 -1340 / -2270 110 / 110 Intake: IV 110 / 110 Iron Sucrose 200 mg In 0.9 % 110 / 110 Sodium Chloride 100 ml @ 220 mls/hr IV DAILY [facility] Rx#: [id number] Oral 370 / 530 160 / 530 Output: Urine 1500 / 2800 Other: Weight 96.7 kg Weight Measurement Method Built in [facility]
[2023-04-22] MEDS: IRON SUCROSE 200 MG in 0.9 % SODIUM CHLORIDE 100 ML IV SCH (09:32)
--- NOTE | 2023-04-22 10:30 | Nephrology Progress Note ---
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 Started on Bumex 1 mg IV twice a day with decent response with diuresis, had more than 3 L of urine output since admission. Kidney function staying relatively stable close to baseline, creatinine 3.5-3.6, electrolyte acceptable. Has chronic anemia, hemoglobin has been low at 8.4. Overall reports feeling better. Doing much better today, lower extremity edema improved significantly, respiratory status improved overall feeling more energetic. Appetite decent. Net -2.5 L. Blood pressure acceptable. -- Continue on Bumex 1 mg IV twice a day, monitor intake and output, aim for net -0.5 to 1 L/day. If continues to remain net negative, recommend changing to Bumex 1 mg orally twice daily starting tomorrow. Continue to monitor kidney function and electrolyte and explained that there can be some variability in creatinine or even slight increase in BUN and creatinine which is not unexpected while trying to improve the volume status. -- Strictly follow low sodium diet, keep leg elevated, start using compression stockings -- Start on Venofer -- Will need close monitoring of kidney function and electrolyte while on IV diuretics and replace electrolyte as needed -- Continue conservative management of advanced CKD, ESKD as patient's wishes Will sign off, he will see Dr. Rodrigues at CKD clinic as an outpatient in next few weeks. Thank you for the consult, it was a pleasure to see Mr. Mcmahan, please contact if any further assistance needed. Admission and Anticipated Discharge Date Admission Date: April 20, 2023 Katarina Barron was seen and evaluated this morning. He looked comfortable, denied any symptoms, reports decent appetite. Urine output excellent with current dose of diuretics, net -2.5 L over last 24 hours. Respiratory status improved, lower extremity edema improved as well. Kidney function staying relatively stable with slight variability in creatinine, electrolyte acceptable. Hemoglobin low with iron deficiency. Weight down almost 5 kg since admission. Review of Systems Review of Systems: Detailed review of system was done and pertinent positives and negatives are mentioned above. Physical Exam Constitutional: WD/WN, vitals as above no acute distress Eyes: + anicteric sclerae Neck: normal visual inspection Respiratory: normal respiratory effort; no respiratory distress and no cough Auscultation: + rales Cardiovascular: Rate/Rhythm: + irregularly irregular Heart Sounds: normal S1 and normal S2 Extremities: + edema (2 to 3 + b/l LE edema L>R) Musculoskeletal: Extremities: extremities normal to inspection Skin: no rashes, warm and dry Neurologic: no focal motor deficits Psychiatric: Orientation: alert and oriented x 3 Affect: euthymic affect Results & Data Vital Signs (Past 12 Hours) Vital Signs Temp Pulse Pulse Resp BP Pulse Ox O2 Del Method 04/22/23 09:00 72 04/22/23 08:24 36.6 C 83 18 152/74 H 94 Room Air 04/22/23 03:49 36.6 C 74 17 142/69 H 93 Room Air 04/21/23 22:45 36.6 C 79 18 152/70 H 94 Room Air PG Care Time/CCT Total # of Minutes Spent Total Time Spent with Patient: Total time spent is greater than 50% in coordination of care (as documented) at patient's floor/unit and/or counseling patient: Coding Level of Care Code 51127 SUB INP/OBS CARE 3/50MIN Diagnoses Chronic kidney disease, stage IV (severe) N18.4 Edema R60.9 Edema type: unspecified Shortness of breath R06.02 CHF (congestive heart failure) I50.9 Heart failure chronicity: unspecified Heart failure type: unspecified S/P CABG x 3 Z95.1 (2) Edema Edema type: unspecified Qualified Code(s): R60.9 - Edema, unspecified (4) CHF (congestive heart failure) Heart failure chronicity: unspecified Heart failure type: unspecified Qualified Code(s): I50.9 - Heart failure, unspecified
--- NOTE | 2023-04-22 12:52 | Electrocardiogram Report ---
Test Reason : Blood Pressure : / mmHG Vent. Rate : 075 BPM Atrial Rate : 082 BPM P-R Int : 000 ms QRS Dur : 110 ms QT Int : 432 ms P-R-T Axes : 000 -22 096 degrees QTc Int : 482 ms Atrial fibrillation Incomplete left bundle block Prolonged QT Abnormal ECG When compared with ECG of 20-APR-2023 15:59, No significant change was found Confirmed by Chay Benjamin ([id number]) on 04/22/2023 12:51:40 PM Referred By: REFERRED SELF Confirmed By:Chay Benjamin
[2023-04-22] MEDS: WARFARIN SOD 4 MG TAB PO SCH (16:01)
--- NOTE | 2023-04-22 16:10 | Hospitalist Progress Note ---
Date of Service April 22, 2023 Assessment & Plan (1) Acute on chronic diastolic (congestive) heart failure: (2) Acute hypoxic respiratory failure: (3) Leg edema: (4) Chronic kidney disease, stage IV (severe): (5) CAD (coronary artery disease): (6) PVD (peripheral vascular disease): (7) Cerebrovascular disease: (8) Chronic atrial fibrillation: (9) Anemia: (10) Recurrent Clostridioides difficile infection: Plan: Patient is an 82 yr male with H/O HTN, dyslipidemia, PVD, CAD, TIA, CKD IV, chronic atrial fibrillation, on chronic anticoagulation, chronic anemia, and others listed below presented to ER with complaint of lower extremity edema x several days. Acute on chronic diastolic heart failure Acute hypoxic respiratory failure Patient presented with lower extremity edema for several days. --CXR on admission personally reviewed; cardiomegaly with interval development of mild interstitial pulmonary edema and trace bilateral pleural effusions --BNP: 400 --ECHO: Left ventricle systolic function is normal. EF 55 to 60%. Mild concentric LVH. Moderate size septal and anteroseptal wall motion abnormality with hypokinesis to akinesis of the segments. Severe biatrial enlargement. Severe focal calcification of the noncoronary aortic valve cusp. Attic stenosis is absent. Mild mitral and tricuspid regurgitation. Estimated systolic pulmonary pressure is 50 mmHg. Dilated IVC with normal respiratory variation suggest a right atrial pressure of 8 mmHg. Continue IV Bumex twice daily. Possible transition to oral Bumex tomorrow if patient continues to do well Monitor I's and O's, daily weight, volume status Monitor and replete electrolytes as needed Elevated troponin Mild troponin elevation Likely demand ischemia secondary to volume overload and in setting of CKD Patient denies any chest pain EKG showed A-fib, nonspecific ST changes in inferior leads CAD S/P CABG Continue metoprolol succinate, rosuvastatin, Plavix Chronic atrial fibrillation Anticoagulated on Coumadin Rate controlled with metoprolol INR within therapeutic range Continue metoprolol succinate, Coumadin Peripheral vascular disease H/O bilateral carotid endarterectomy Continue Plavix, rosuvastatin CKD IV Baseline 3.5-4 Cr at baseline Follows with Dr. Rodrigues. Patient not interested in HD at any point Monitor renal function Avoid nephrotoxic agents as able Chronic recurrent Clostridium difficile Denies any recent diarrhea Continue home PO vancomycin Chronic anemia Baseline 10-12 Hemoglobin drop likely dilutional due to volume overload Started on Venofer as per nephrology DVT Px Coumadin. INR therapeutic. CODE STATUS DNR/DNI Disposition PT OT recommends home. Time spent evaluating patient, direct bedside care, chart review, placing orders, interpretation of diagnostic studies, discussion with consultants, patient, and family members, as well as other required patient management activities is 50 minutes Please note the above document was generated using voice recognition software. It may contain grammatical, syntax or spelling errors. Any formal questions or concerns about the content, text or information contained within the body of this dictation should be directly addressed to the provider for clarification Admission and Anticipated Discharge Date Admission Date: April 20, 2023 Subjective Patient seen and examined at bedside. He reports that he is feeling better compared to yesterday. Lower extremity edema has improved as well as per him. No significant events overnight Review of Systems Review of Systems: All systems reviewed & are unremarkable except as noted in Subjective Physical Exam Physical Exam: Physical Exam: Vitals signs as noted above General Appearance:Moderately built and nourished, no apparent distress, Elderly Head: normocephalic, Atraumatic Eyes: normal inspection, EOMI Neck: supple, Trachea midline Respiratory/Chest: Normal breath sounds, bilateral basilar crackles, No accessory muscle use Cardiovascular: Irregularly irregular, No murmur Abdomen/GI:Soft, Non tender, Bowel sounds present Extremities/Musculoskeletal:normal inspection, 2+ LE edema, erythema, venous stasis changes Neurologic/Psych:AAOX3, grossly no focal neurological deficits, + decreased hearing Skin: normal color, warm Results & Data Results & Data Vital Signs (Past 12 Hours) Vital Signs Temp Pulse Pulse Resp BP Pulse Ox O2 Del Method 04/22/23 15:23 36.4 C L 68 18 144/71 H 94 Room Air 04/22/23 14:56 71 04/22/23 11:27 36.5 C 80 18 147/65 H 94 Room Air 04/22/23 09:00 72 04/22/23 08:24 36.6 C 83 18 152/74 H 94 Room Air
[2023-04-23 07:28] LABS: Hematocrit (blood only) 29.5 % (42.0-52.0); Hemoglobin 8.8 g/dl (14.0-18.0); Mean Corpuscular Hemoglobin 25.1 pg (25.0-34.0); Mean Corpuscular Hgb Conc 29.8 g/dL (32.0-36.0); Mean Platelet Volume 8.7 fL (9.4-12.4); Platelet Count 274 K/uL (130-400); RDW Coefficient of Variation 17.2 % (11.5-14.5); RDW Standard Deviation 52.4 fL (36.4-46.3); Red Blood Count 3.51 M/uL (4.70-6.10); White Blood Count 6.42 K/ul (4.8-10.8)
[2023-04-23 07:45] LABS: Albumin Level 3.3 gm/dl (3.4-5.0); BUN Creatinine Ratio 18.9 (10-20); Calcium 9.9 mg/dl (8.6-10.3); Creatinine Clr Calc Pharmacy 18.4 ml/min; Est GFR (African American) 17.8 ml/min; Est GFR (Non-African American) 15.4 ml/min; Phosphorus 3.6 mg/dl (2.5-4.9); Potassium 4.3 mmol/L (3.5-5.1)
[2023-04-23 08:03] LABS: INR 2.7 (0.9-1.1); Prothrombin Time 27.6 Seconds (9.0-12.0)
[2023-04-23] MEDS: BUMETANIDE 1 MG TAB PO SCH (10:08)
--- NOTE | 2023-04-23 15:08 | Hospitalist Progress Note ---
Date of Service April 23, 2023 Assessment & Plan (1) Acute on chronic diastolic (congestive) heart failure: (2) Acute hypoxic respiratory failure: (3) Leg edema: (4) Chronic kidney disease, stage IV (severe): (5) CAD (coronary artery disease): (6) PVD (peripheral vascular disease): (7) Cerebrovascular disease: (8) Chronic atrial fibrillation: (9) Anemia: (10) Recurrent Clostridioides difficile infection: Plan: Patient is an 82 yr male with H/O HTN, dyslipidemia, PVD, CAD, TIA, CKD IV, chronic atrial fibrillation, on chronic anticoagulation, chronic anemia, and others listed below presented to ER with complaint of lower extremity edema x several days. Acute on chronic diastolic heart failure Acute hypoxic respiratory failure Patient presented with lower extremity edema for several days. --CXR on admission personally reviewed; cardiomegaly with interval development of mild interstitial pulmonary edema and trace bilateral pleural effusions --BNP: 400 --ECHO: Left ventricle systolic function is normal. EF 55 to 60%. Mild concentric LVH. Moderate size septal and anteroseptal wall motion abnormality with hypokinesis to akinesis of the segments. Severe biatrial enlargement. Severe focal calcification of the noncoronary aortic valve cusp. Attic stenosis is absent. Mild mitral and tricuspid regurgitation. Estimated systolic pulmonary pressure is 50 mmHg. Dilated IVC with normal respiratory variation suggest a right atrial pressure of 8 mmHg. Patient was diuresed with IV Bumex; with improvement in bilateral lower extremity. Transition to oral Bumex today Monitor I's and O's, daily weight, volume status Monitor and replete electrolytes as needed Elevated troponin Mild troponin elevation Likely demand ischemia secondary to volume overload and in setting of CKD Patient denies any chest pain EKG showed A-fib, nonspecific ST changes in inferior leads CAD S/P CABG Continue metoprolol succinate, rosuvastatin, Plavix Chronic atrial fibrillation Anticoagulated on Coumadin Rate controlled with metoprolol INR within therapeutic range Continue metoprolol succinate, Coumadin Peripheral vascular disease H/O bilateral carotid endarterectomy Continue Plavix, rosuvastatin CKD IV Baseline 3.5-4 Cr at baseline Follows with Dr. Rodrigues. Patient not interested in HD at any point Monitor renal function Avoid nephrotoxic agents as able Chronic recurrent Clostridium difficile Denies any recent diarrhea Continue home PO vancomycin Chronic anemia Baseline 10-12 Hemoglobin drop likely dilutional due to volume overload Started on Venofer as per nephrology, continue DVT Px Coumadin. INR therapeutic. CODE STATUS DNR/DNI Disposition PT OT recommends home. Time spent evaluating patient, direct bedside care, chart review, placing orders, interpretation of diagnostic studies, discussion with consultants, patient, and family members, as well as other required patient management activities is 50 minutes Please note the above document was generated using voice recognition software. It may contain grammatical, syntax or spelling errors. Any formal questions or concerns about the content, text or information contained within the body of this dictation should be directly addressed to the provider for clarification Admission and Anticipated Discharge Date Admission Date: April 20, 2023 Subjective Patient seen and examined at bedside. He is comfortably sleeping; not in distress. Patient is in room air; vital stable. No overnight events Review of Systems Review of Systems: All systems reviewed & are unremarkable except as noted in Subjective Physical Exam Physical Exam: Physical Exam: Vitals signs as noted above General Appearance:Moderately built and nourished, no apparent distress, Elderly Respiratory/Chest: Normal breath sounds, bilateral basilar crackles, No accessory muscle use Cardiovascular: Irregularly irregular, No murmur Abdomen/GI:Soft, Non tender, Bowel sounds present Extremities/Musculoskeletal:normal inspection, 2+ LE edema, erythema, venous stasis changes Neurologic/Psych:AAOX3, grossly no focal neurological deficits, + decreased hearing Skin: normal color, warm Results & Data Results & Data Vital Signs (Past 12 Hours) Vital Signs Temp Pulse Pulse Resp BP Pulse Ox O2 Del Method 04/23/23 11:18 36.4 C L 74 18 143/56 H 95 Room Air 04/23/23 08:00 81 04/23/23 07:05 36.6 C 79 16 115/37 L 92 Room Air 04/23/23 04:22 36.7 C 87 18 132/61 93 Room Air
--- NOTE | 2023-04-23 18:45 | Cardiology Progress Note ---
Date of Service April 23, 2023 Assessment & Plan (1) Acute on chronic diastolic (congestive) heart failure: Plan: pt changed to PO bumex (2) Chronic atrial fibrillation: Plan: continue metoprolol and coumadin (3) Chronic kidney disease, stage IV (severe): (4) Anemia: (5) CAD (coronary artery disease): (6) S/P CABG x 3: Plan Assessment: 82 year-old medically complex male admitted for acute on chronic diastolic heart failure. CKG stage IV with refusal of dialysis. switched to PO diuretics will need chf f/u upon discharge continue home cardiac medications i discussed my assessment with the hospitalist and he agreed with my plan Admission and Anticipated Discharge Date Admission Date: April 20, 2023 Subjective pt seen in cardiology f/u due to acute on top of chronic heart failure with preserved EF and MANUEL on top of CKD pt's was at the bedside-she says the patient's legs look much better the pt is not the best historian Review of Systems Review of Systems: All systems reviewed & are unremarkable except as noted in HPI & below Physical Exam Physical Exam: awake and alert, NAD NC/AT, EOMI Supple No JVD irregular/irregular S1/S2, + murmur CTA b/l no w/r/r soft nt/nd + LE edema b/l skin intact Results & Data Vital Signs (Past 12 Hours) Vital Signs Temp Pulse Pulse Resp BP Pulse Ox O2 Del Method 04/23/23 15:24 36.4 C L 77 18 108/65 93 Room Air 04/23/23 15:17 62 04/23/23 11:18 36.4 C L 74 18 143/56 H 95 Room Air 04/23/23 08:00 81 04/23/23 07:05 36.6 C 79 16 115/37 L 92 Room Air Laboratory Results Laboratory Results - last 24 hr 04/23/23 07:06 WBC 6.42 RBC 3.51 L Hgb 8.8 L Hct 29.5 L MCV 84.0 MCH 25.1 MCHC 29.8 L RDW Std Deviation 52.4 H RDW Coeff of Josefina 17.2 H Plt Count 274 MPV 8.7 L PT 27.6 H INR 2.7 H Sodium 139 Potassium 4.3 Chloride 102 Carbon Dioxide 30 Anion Gap 7 BUN 66 H Creatinine 3.49 H Est Cr Clr Drug Dosing 18.4 Est GFR ( Amer) 17.8 Est GFR (Non-Af Amer) 15.4 BUN/Creatinine Ratio 18.9 Glucose 100 H Calcium 9.9 Phosphorus 3.6 Albumin 3.3 L Medications Administered Current Inpatient Medications Acetaminophen (Acetaminophen 325 Mg Tab) 650 mg PO Q4H PRN PRN Reason: Pain or Fever Stop: 05/20/23 18:40 Bumetanide (Bumetanide 1 Mg Tab) 1 mg PO BID17 ELIS Stop: 05/23/23 08:59 Last Admin: 04/23/23 16:43 Dose: 1 mg Hui Syrup (Hui Syrup 5 Ml Udp) 5 ml PO DAILY ELIS Stop: 05/01/23 08:59 Last Admin: 04/23/23 10:09 Dose: 5 ml Clopidogrel Bisulfate (Clopidogrel Bisulfate 75 Mg Tab) 75 mg PO QAM [facility] Stop: 05/21/23 08:59 Last Admin: 04/23/23 10:08 Dose: 75 mg Doxycycline Hyclate (Doxycycline Hyclate 100 Mg Cap) 100 mg PO BID ELIS Stop: 04/28/23 10:29 Last Admin: 04/23/23 10:07 Dose: 100 mg Iron Sucrose 200 mg/ Sodium (Chloride) 110 mls @ 220 mls/hr IV DAILY ELIS Stop: 04/26/23 09:59 Last Infusion: 04/23/23 11:27 Dose: Infused Lactobacillus Acidophilus (Lactobacillus Acidophilus 1 Gm Pack) 1 gm PO TIDM ELIS Stop: 05/21/23 07:59 Last Admin: 04/23/23 16:43 Dose: 1 gm Levothyroxine Sodium (Levothyroxine Sodium 25 Mcg Tablet) 25 mcg PO DAILYBB [facility] Stop: 05/21/23 06:29 Last Admin: 04/23/23 06:10 Dose: 25 mcg Metoprolol Succinate (Metoprolol Succ 25mg Ext Rel Tab) 25 mg PO BID [facility] Stop: 05/20/23 20:59 Last Admin: 04/23/23 10:07 Dose: 25 mg Multivitamins (Multivitamin Tab) 1 tab PO DAILY ELIS Stop: 05/21/23 08:59 Last Admin: 04/23/23 10:08 Dose: 1 tab Ondansetron HCl (Ondansetron Inj 2 Mg/Ml 2 Ml Vial) 4 mg IV Q6H PRN PRN Reason: Nausea Stop: 05/20/23 18:40 Pantoprazole Sodium (Pantoprazole 40 Mg Tab) [facility] Stop: 05/21/23 08:59 Last Admin: 04/23/23 10:08 Dose: 40 mg Polyethylene Glycol (Polyethylene (Miralax) 17 Gm Pack) 17 gm PO DAILY PRN PRN Reason: Constipation Stop: 05/20/23 18:40 Potassium Chloride (Potassium Chloride Crtab 20 Meq Tabcr) 20 meq PO DAILY [facility] Stop: 05/21/23 08:59 Last Admin: 04/23/23 10:08 Dose: 20 meq Rosuvastatin Calcium (Rosuvastatin Calcium 10 Mg Tab) 10 mg PO [facility] Stop: 05/20/23 20:59 Last Admin: 04/22/23 21:18 Dose: 10 mg Trazodone HCl (Trazodone Hcl 50 Mg Tab) 50 mg PO [facility] Stop: 05/20/23 20:59 Last Admin: 04/22/23 21:34 Dose: 50 mg Vancomycin HCl (Vancomycin Hcl 125 Mg/2.5ml Soln) 125 mg PO [facility] Stop: 05/21/23 08:59 Last Admin: 04/23/23 10:09 Dose: 125 mg Warfarin Sodium (Warfarin Sod 2 Mg Tab) 2 mg PO [id number]@1600 [facility] Stop: 05/20/23 20:29 Last Admin: 04/23/23 16:44 Dose: 2 mg Warfarin Sodium (Warfarin Sod 4 Mg Tab) 4 mg PO [id number]@1600 [facility] Stop: 05/22/23 15:59 Last Admin: 04/22/23 16:01 Dose: 4 mg
[2023-04-24 07:53] LABS: INR 2.8 (0.9-1.1); Prothrombin Time 28.6 Seconds (9.0-12.0)
--- NOTE | 2023-04-24 13:00 | Hospitalist Progress Note ---
Date of Service April 24, 2023 Assessment & Plan (1) Acute on chronic diastolic (congestive) heart failure: (2) Acute hypoxic respiratory failure: (3) Leg edema: (4) Chronic kidney disease, stage IV (severe): (5) CAD (coronary artery disease): (6) PVD (peripheral vascular disease): (7) Cerebrovascular disease: (8) Chronic atrial fibrillation: (9) Anemia: (10) Recurrent Clostridioides difficile infection: Plan: Patient is an 82 yr male with H/O HTN, dyslipidemia, PVD, CAD, TIA, CKD IV, chronic atrial fibrillation, on chronic anticoagulation, chronic anemia, and others listed below presented to ER with complaint of lower extremity edema x several days. Acute on chronic diastolic heart failure Acute hypoxic respiratory failure Patient presented with lower extremity edema for several days. --CXR on admission personally reviewed; cardiomegaly with interval development of mild interstitial pulmonary edema and trace bilateral pleural effusions --BNP: 400 --ECHO: Left ventricle systolic function is normal. EF 55 to 60%. Mild concentric LVH. Moderate size septal and anteroseptal wall motion abnormality with hypokinesis to akinesis of the segments. Severe biatrial enlargement. Severe focal calcification of the noncoronary aortic valve cusp. Attic stenosis is absent. Mild mitral and tricuspid regurgitation. Estimated systolic pulmonary pressure is 50 mmHg. Dilated IVC with normal respiratory variation suggest a right atrial pressure of 8 mmHg. Patient was diuresed with IV Bumex; with improvement in bilateral lower extremity. Transition to oral Bumex Monitor I's and O's, daily weight, volume status Monitor and replete electrolytes as needed Elevated troponin Mild troponin elevation Likely demand ischemia secondary to volume overload and in setting of CKD Patient denies any chest pain EKG showed A-fib, nonspecific ST changes in inferior leads CAD S/P CABG Continue metoprolol succinate, rosuvastatin, Plavix Chronic atrial fibrillation Anticoagulated on Coumadin Rate controlled with metoprolol INR within therapeutic range Continue metoprolol succinate, Coumadin Peripheral vascular disease H/O bilateral carotid endarterectomy Continue Plavix, rosuvastatin CKD IV Baseline 3.5-4 Cr at baseline Follows with Dr. Rodrigues. Patient not interested in HD at any point Monitor renal function Avoid nephrotoxic agents as able Chronic recurrent Clostridium difficile Denies any recent diarrhea Continue home PO vancomycin Chronic anemia Baseline 10-12 Hemoglobin drop likely dilutional due to volume overload Started on Venofer as per nephrology, continue DVT Px Coumadin. INR therapeutic. CODE STATUS DNR/DNI Disposition PT OT recommends home. Please note the above document was generated using voice recognition software. It may contain grammatical, syntax or spelling errors. Any formal questions or concerns about the content, text or information contained within the body of this dictation should be directly addressed to the provider for clarification Admission and Anticipated Discharge Date Admission Date: April 20, 2023 Subjective Patient resting comfortably; not in distress. He is saturating well on room air. Review of Systems Review of Systems: All systems reviewed & are unremarkable except as noted in Subjective Physical Exam Physical Exam: Physical Exam: Vitals signs as noted above General Appearance:Moderately built and nourished, no apparent distress, Elderly Respiratory/Chest: Normal breath sounds, bilateral basilar crackles, No accessory muscle use Cardiovascular: Irregularly irregular, No murmur Abdomen/GI:Soft, Non tender, Bowel sounds present Extremities/Musculoskeletal:normal inspection, 2+ LE edema, erythema, venous stasis changes Neurologic/Psych:AAOX3, grossly no focal neurological deficits, + decreased hearing Skin: normal color, warm Results & Data Results & Data Vital Signs (Past 12 Hours) Vital Signs Temp Pulse Pulse Resp BP Pulse Ox O2 Del Method 04/24/23 11:27 36.5 C 61 18 119/68 94 Room Air 04/24/23 08:00 78 04/24/23 07:34 36.7 C 78 18 146/70 H 91 Room Air 04/24/23 04:51 36.4 C L 76 16 113/65 91 Room Air
[2023-04-25 07:47] LABS: Basophils # (auto) 0.04 K/uL (0.00-0.20); Basophils % (auto) 0.5 %; Eosinophils % (auto) 1.4 %; Hematocrit (blood only) 28.5 % (42.0-52.0); Hemoglobin 8.8 g/dl (14.0-18.0); Immature Granulocytes # (auto) 0.02 K/uL (0.01-0.20); Immature Granulocytes % (auto) 0.3 %; Lymphocytes # (auto) 1.72 K/uL (1.20-3.40); Lymphocytes % (auto) 23.4 %; Mean Corpuscular Hemoglobin 25.6 pg (25.0-34.0); Mean Corpuscular Hgb Conc 30.9 g/dL (32.0-36.0); Mean Corpuscular Volume 82.8 fL (80.0-100.0); Mean Platelet Volume 8.3 fL (9.4-12.4); Monocytes % (auto) 17.7 %; Neutrophils # (auto) 4.18 K/uL (1.40-6.50); Neutrophils % (auto) 56.7 %; Platelet Count 267 K/uL (130-400); RDW Coefficient of Variation 17.8 % (11.5-14.5); RDW Standard Deviation 52.8 fL (36.4-46.3); Red Blood Count 3.44 M/uL (4.70-6.10); White Blood Count 7.36 K/ul (4.8-10.8)
[2023-04-25 08:02] LABS: BUN Creatinine Ratio 16.9 (10-20); Calcium 9.6 mg/dl (8.6-10.3); Est GFR (African American) 16.2 ml/min; Est GFR (Non-African American) 13.9 ml/min
--- NOTE | 2023-04-25 12:32 | Hospitalist Progress Note ---
Date of Service April 25, 2023 Assessment & Plan (1) Acute on chronic diastolic (congestive) heart failure: (2) Acute hypoxic respiratory failure: (3) Leg edema: (4) Chronic kidney disease, stage IV (severe): (5) CAD (coronary artery disease): (6) PVD (peripheral vascular disease): (7) Cerebrovascular disease: (8) Chronic atrial fibrillation: (9) Anemia: (10) Recurrent Clostridioides difficile infection: Plan: Patient is an 82 yr male with H/O HTN, dyslipidemia, PVD, CAD, TIA, CKD IV, chronic atrial fibrillation, on chronic anticoagulation, chronic anemia, and others listed below presented to ER with complaint of lower extremity edema x several days. Acute on chronic diastolic heart failure Acute hypoxic respiratory failure Patient presented with lower extremity edema for several days. --CXR on admission personally reviewed; cardiomegaly with interval development of mild interstitial pulmonary edema and trace bilateral pleural effusions --BNP: 400 --ECHO: Left ventricle systolic function is normal. EF 55 to 60%. Mild concentric LVH. Moderate size septal and anteroseptal wall motion abnormality with hypokinesis to akinesis of the segments. Severe biatrial enlargement. Severe focal calcification of the noncoronary aortic valve cusp. Attic stenosis is absent. Mild mitral and tricuspid regurgitation. Estimated systolic pulmonary pressure is 50 mmHg. Dilated IVC with normal respiratory variation suggest a right atrial pressure of 8 mmHg. Patient was diuresed with IV Bumex; with improvement in bilateral lower extremity. Transition to oral Bumex Monitor I's and O's, daily weight, volume status Monitor and replete electrolytes as needed Elevated troponin Mild troponin elevation Likely demand ischemia secondary to volume overload and in setting of CKD Patient denies any chest pain EKG showed A-fib, nonspecific ST changes in inferior leads CAD S/P CABG Continue metoprolol succinate, rosuvastatin, Plavix Chronic atrial fibrillation Anticoagulated on Coumadin Rate controlled with metoprolol INR within therapeutic range Continue metoprolol succinate, Coumadin Peripheral vascular disease H/O bilateral carotid endarterectomy Continue Plavix, rosuvastatin CKD IV Baseline 3.5-4 Cr at baseline Follows with Dr. Rodrigues. Patient not interested in HD at any point Monitor renal function Avoid nephrotoxic agents as able Chronic recurrent Clostridium difficile Denies any recent diarrhea Continue home PO vancomycin Chronic anemia Baseline 10-12 Hemoglobin drop likely dilutional due to volume overload Started on Venofer as per nephrology, continue DVT Px Coumadin. INR therapeutic. CODE STATUS DNR/DNI Disposition PT OT recommends home. Patient's concerned about patient's mobility. Referral sent to rehab. Please note the above document was generated using voice recognition software. It may contain grammatical, syntax or spelling errors. Any formal questions or concerns about the content, text or information contained within the body of this dictation should be directly addressed to the provider for clarification Admission and Anticipated Discharge Date Admission Date: April 20, 2023 Subjective Patient lying in the bed comfortably; not in distress. Vitals remained stable and he is saturating well on room air Review of Systems Review of Systems: All systems reviewed & are unremarkable except as noted in Subjective Physical Exam Physical Exam: Physical Exam: Vitals signs as noted above General Appearance:Moderately built and nourished, no apparent distress, Elderly Respiratory/Chest: Normal breath sounds, No accessory muscle use Cardiovascular: Irregularly irregular, No murmur Abdomen/GI:Soft, Non tender, Bowel sounds present Extremities/Musculoskeletal:normal inspection, 2+ LE edema, erythema, venous stasis changes Neurologic/Psych:AAOX3, grossly no focal neurological deficits, + decreased hearing Skin: normal color, warm Results & Data Results & Data Vital Signs (Past 12 Hours) Vital Signs Temp Pulse Resp BP Pulse Ox O2 Del Method 04/25/23 12:11 36.6 C 74 16 106/54 L 94 Room Air 04/25/23 08:29 36.9 C 71 16 135/71 96 Room Air 04/25/23 03:12 36.6 C 67 16 153/71 H 94 Room Air
--- NOTE | 2023-04-25 15:21 | Cardiology Progress Note ---
Date of Service April 25, 2023 Assessment & Plan (1) Acute on chronic diastolic (congestive) heart failure: Plan: pt changed to PO bumex (2) Chronic atrial fibrillation: Plan: continue metoprolol and coumadin (3) Chronic kidney disease, stage IV (severe): (4) Anemia: (5) CAD (coronary artery disease): (6) S/P CABG x 3: Plan Assessment: 82 year-old medically complex male admitted for acute on chronic diastolic heart failure. CKG stage IV with decline of dialysis Clinically improved since admission now oral regimen Overall functional capacity is slowly declining of patient concerned. Patient nearly nonverbal, sleeps 20 hours/day at home. Current state not in conjunction with patient's prior wishes Would consider hospice evaluation i discussed with the hospitalist and he agreed with my plan Admission and Anticipated Discharge Date Admission Date: April 20, 2023 Subjective Patient was seen and examined. Extensive conversation with patient Patient minimally conversant. Was able to stand with assistance though not steady on feet Denies currently chest pain or shortness of breath Physical Exam Constitutional: well developed and well nourished; no acute distress Neck: normal visual inspection and trachea midline Respiratory: normal respiratory effort; no respiratory distress Auscultation: lungs clear to auscultation bilaterally and + diminished lung sounds (bilateral bases ) Cardiovascular: Rate/Rhythm: + irregularly irregular Heart Sounds: normal S1, normal S2 and + murmur Vessels: dorsalis pedis pulses present; no JVD Extremities: + edema (+1 BLE left worse than right) Skin: normal turgor and + erythema (left lower extremity ) Psychiatric: Orientation: alert (very hard of hearing) Eye Contact: good eye contact Speech: + mute Results & Data Vital Signs (Past 12 Hours) Vital Signs Temp Pulse Resp BP Pulse Ox O2 Del Method 04/25/23 12:11 36.6 C 74 16 106/54 L 94 Room Air 04/25/23 08:29 36.9 C 71 16 135/71 96 Room Air Laboratory Results Laboratory Results - last 24 hr 04/25/23 07:29 WBC 7.36 RBC 3.44 L Hgb 8.8 L Hct 28.5 L MCV 82.8 MCH 25.6 MCHC 30.9 L RDW Std Deviation 52.8 H RDW Coeff of Josefina 17.8 H Plt Count 267 MPV 8.3 L Immature Gran % (Auto) 0.3 Neut % (Auto) 56.7 Lymph % (Auto) 23.4 [place] % (Auto) 17.7 Eos % (Auto) 1.4 Baso % (Auto) 0.5 Neut # (Auto) 4.18 Lymph # (Auto) 1.72 [place] # (Auto) 1.30 H Eos # (Auto) 0.10 Baso # (Auto) 0.04 Immature Gran # (Auto) 0.02 Sodium 137 Potassium 4.0 Chloride 101 Carbon Dioxide 30 Anion Gap 6 BUN 64 H Creatinine 3.79 H Est Cr Clr Drug Dosing 17.0 Est GFR ( Amer) 16.2 Est GFR (Non-Af Amer) 13.9 BUN/Creatinine Ratio 16.9 Glucose 87 Calcium 9.6
[2023-04-26 08:34] LABS: INR 2.6 (0.9-1.1); Prothrombin Time 26.9 Seconds (9.0-12.0)
[2023-04-26] MEDS: BUMETANIDE 1 MG in SYRINGE 0 ML IV ONE (15:13)
--- NOTE | 2023-04-26 16:07 | Hospitalist Progress Note ---
Date of Service April 26, 2023 Assessment & Plan (1) Acute on chronic diastolic (congestive) heart failure: (2) Acute hypoxic respiratory failure: (3) Leg edema: (4) Chronic kidney disease, stage IV (severe): (5) CAD (coronary artery disease): (6) PVD (peripheral vascular disease): (7) Cerebrovascular disease: (8) Chronic atrial fibrillation: (9) Anemia: (10) Recurrent Clostridioides difficile infection: Plan: Patient is an 82 yr male with H/O HTN, dyslipidemia, PVD, CAD, TIA, CKD IV, chronic atrial fibrillation, on chronic anticoagulation, chronic anemia, and others listed below presented to ER with complaint of lower extremity edema x several days. Acute on chronic diastolic heart failure Acute hypoxic respiratory failure Patient presented with lower extremity edema for several days. --CXR on admission personally reviewed; cardiomegaly with interval development of mild interstitial pulmonary edema and trace bilateral pleural effusions --BNP: 400 --ECHO: Left ventricle systolic function is normal. EF 55 to 60%. Mild concentric LVH. Moderate size septal and anteroseptal wall motion abnormality with hypokinesis to akinesis of the segments. Severe biatrial enlargement. Severe focal calcification of the noncoronary aortic valve cusp. Attic stenosis is absent. Mild mitral and tricuspid regurgitation. Estimated systolic pulmonary pressure is 50 mmHg. Dilated IVC with normal respiratory variation suggest a right atrial pressure of 8 mmHg. Patient was diuresed with IV Bumex; with improvement in bilateral lower extremity. Transition to oral Bumex. Will give him 1 dose of IV Bumex today. Monitor I's and O's, daily weight, volume status Monitor and replete electrolytes as needed Elevated troponin Mild troponin elevation Likely demand ischemia secondary to volume overload and in setting of CKD Patient denies any chest pain EKG showed A-fib, nonspecific ST changes in inferior leads CAD S/P CABG Continue metoprolol succinate, rosuvastatin, Plavix Chronic atrial fibrillation Anticoagulated on Coumadin Rate controlled with metoprolol INR within therapeutic range Continue metoprolol succinate, Coumadin Peripheral vascular disease H/O bilateral carotid endarterectomy Continue Plavix, rosuvastatin CKD IV Baseline 3.5-4 Cr at baseline Follows with Dr. Rodrigues. Patient not interested in HD at any point Monitor renal function Avoid nephrotoxic agents as able Chronic recurrent Clostridium difficile Denies any recent diarrhea Continue home PO vancomycin Chronic anemia Baseline 10-12 Hemoglobin drop likely dilutional due to volume overload Started on Venofer as per nephrology, continue DVT Px Coumadin. INR therapeutic. CODE STATUS DNR/DNI Disposition Plan to discharge to rehab when accepted for placement. Discussed with patient's ; likely transition from rehab to home on hospice care in near future. Please note the above document was generated using voice recognition software. It may contain grammatical, syntax or spelling errors. Any formal questions or concerns about the content, text or information contained within the body of this dictation should be directly addressed to the provider for clarification Admission and Anticipated Discharge Date Admission Date: April 20, 2023 Subjective Patient seen and examined at bedside. He is awake and reading newspaper. He is comfortable; denies any pain or discomfort. Review of Systems Review of Systems: All systems reviewed & are unremarkable except as noted in Subjective Physical Exam Physical Exam: Physical Exam: Vitals signs as noted above General Appearance:Moderately built and nourished, no apparent distress, Elderly Respiratory/Chest: Normal breath sounds, No accessory muscle use Cardiovascular: Irregularly irregular, No murmur Abdomen/GI:Soft, Non tender, Bowel sounds present Extremities/Musculoskeletal:normal inspection, 2+ LE edema, erythema, venous stasis changes Neurologic/Psych:AAOX3, grossly no focal neurological deficits, + decreased hearing Skin: normal color, warm Results & Data Results & Data Vital Signs (Past 12 Hours) Vital Signs Temp Pulse Pulse Resp BP Pulse Ox O2 Del Method 04/26/23 14:54 66 04/26/23 12:33 36.3 C L 70 16 123/47 L 94 Room Air 04/26/23 10:47 58 L 04/26/23 07:49 36.9 C 60 16 124/49 L 96 Room Air
[2023-04-26] MEDS: SODIUM CHLORIDE 0.65% NA SOLN 45 ML (OCEAN) STA (18:41)
[2023-04-27 06:35] LABS: Basophils # (auto) 0.04 K/uL (0.00-0.20); Basophils % (auto) 0.5 %; Eosinophils # (auto) 0.12 K/uL (0.00-0.50); Eosinophils % (auto) 1.6 %; Hematocrit (blood only) 31.7 % (42.0-52.0); Hemoglobin 9.6 g/dl (14.0-18.0); Immature Granulocytes # (auto) 0.02 K/uL (0.01-0.20); Immature Granulocytes % (auto) 0.3 %; Lymphocytes # (auto) 1.66 K/uL (1.20-3.40); Lymphocytes % (auto) 21.6 %; Mean Corpuscular Hemoglobin 25.2 pg (25.0-34.0); Mean Corpuscular Hgb Conc 30.3 g/dL (32.0-36.0); Mean Corpuscular Volume 83.2 fL (80.0-100.0); Mean Platelet Volume 8.8 fL (9.4-12.4); Monocytes # (auto) 1.07 K/uL (0.11-0.59); Monocytes % (auto) 13.9 %; Neutrophils # (auto) 4.78 K/uL (1.40-6.50); Neutrophils % (auto) 62.1 %; Platelet Count 315 K/uL (130-400); RDW Coefficient of Variation 18.6 % (11.5-14.5); RDW Standard Deviation 52.6 fL (36.4-46.3); Red Blood Count 3.81 M/uL (4.70-6.10); White Blood Count 7.69 K/ul (4.8-10.8)
[2023-04-27 06:49] LABS: BUN Creatinine Ratio 17.6 (10-20); Calcium 9.7 mg/dl (8.6-10.3); Creatinine Clr Calc Pharmacy 16.9 ml/min; Est GFR (African American) 16.1 ml/min; Est GFR (Non-African American) 13.9 ml/min; Potassium 4.1 mmol/L (3.5-5.1)
[2023-04-27 08:45] LABS: INR 2.6 (0.9-1.1)
--- NOTE | 2023-04-27 17:04 | Hospitalist Progress Note ---
Date of Service April 27, 2023 Assessment & Plan (1) Acute on chronic diastolic (congestive) heart failure: (2) Acute hypoxic respiratory failure: (3) Leg edema: (4) Chronic kidney disease, stage IV (severe): (5) CAD (coronary artery disease): (6) PVD (peripheral vascular disease): (7) Cerebrovascular disease: (8) Chronic atrial fibrillation: (9) Anemia: (10) Recurrent Clostridioides difficile infection: Plan: Patient is an 82 yr male with H/O HTN, dyslipidemia, PVD, CAD, TIA, CKD IV, chronic atrial fibrillation, on chronic anticoagulation, chronic anemia, and others listed below presented to ER with complaint of lower extremity edema x several days. Acute on chronic diastolic heart failure Acute hypoxic respiratory failure Patient presented with lower extremity edema for several days. --CXR on admission personally reviewed; cardiomegaly with interval development of mild interstitial pulmonary edema and trace bilateral pleural effusions --BNP: 400 --ECHO: Left ventricle systolic function is normal. EF 55 to 60%. Mild concentric LVH. Moderate size septal and anteroseptal wall motion abnormality with hypokinesis to akinesis of the segments. Severe biatrial enlargement. Severe focal calcification of the noncoronary aortic valve cusp. Attic stenosis is absent. Mild mitral and tricuspid regurgitation. Estimated systolic pulmonary pressure is 50 mmHg. Dilated IVC with normal respiratory variation s uggest a right atrial pressure of 8 mmHg. Patient was diuresed with IV Bumex; with improvement in bilateral lower extremity. Transitioned to oral Bumex. Monitor volume status for additional diuresis. Monitor I's and O's, daily weight, volume status Monitor and replete electrolytes as needed Elevated troponin Mild troponin elevation Likely demand ischemia secondary to volume overload and in setting of CKD Patient denies any chest pain EKG showed A-fib, nonspecific ST changes in inferior leads CAD S/P CABG Continue metoprolol succinate, rosuvastatin, Plavix Chronic atrial fibrillation Anticoagulated on Coumadin Rate controlled with metoprolol INR within therapeutic range Continue metoprolol succinate, Coumadin Peripheral vascular disease H/O bilateral carotid endarterectomy Continue Plavix, rosuvastatin CKD IV Baseline 3.5-4 Cr at baseline Follows with Dr. Rodrigues. Patient not interested in HD at any point Monitor renal function Avoid nephrotoxic agents as able Chronic recurrent Clostridium difficile Denies any recent diarrhea Continue home PO vancomycin Chronic anemia Baseline 10-12 Hemoglobin drop likely dilutional due to volume overload Started on Venofer as per nephrology, continue DVT Px Coumadin. INR therapeutic. CODE STATUS DNR/DNI Disposition: Per patient's , plan to DC home with hospice likely tomorrow. Please note the above document was generated using voice recognition software. It may contain grammatical, syntax or spelling errors. Any formal questions or concerns about the content, text or information contained within the body of this dictation should be directly addressed to the provider for clarification Admission and Anticipated Discharge Date Admission Date: April 20, 2023 Subjective Patient seen and examined at bedside. He is awake and sitting up in chair, not in any acute distress. at bedside, updated her on patient's current status. She is hoping to take patient tomorrow to home with hospice. He is comfortable; denies any pain or discomfort. Physical Exam Physical Exam: General Appearance:Moderately built and nourished, no apparent distress, Elderly Respiratory/Chest: Normal breath sounds, No accessory muscle use Cardiovascular: Irregularly irregular, No murmur Abdomen/GI:Soft, Non tender, Bowel sounds present Extremities/Musculoskeletal:normal inspection, 1-2+ LE edema, erythema, venous stasis changes Neurologic/Psych:AAOX3, grossly no focal neurological deficits, + decreased hearing Skin: normal color, warm Results & Data Results & Data Vital Signs (Past 12 Hours) Vital Signs Temp Pulse Pulse Resp BP Pulse Ox O2 Del Method 04/27/23 12:09 36.5 C 62 16 109/64 97 Room Air 04/27/23 07:49 36.6 C 71 16 144/71 H 95 Room Air 04/27/23 07:42 68
--- NOTE | 2023-04-28 13:07 | Discharge Summary ---
Date of Service April 28, 2023 Admission HPI Per Admitting Provider Patient is 82-year-old male with PMH HTN, dyslipidemia, PVD, CAD, TIA, CKD IV, chronic atrial fibrillation, on chronic anticoagulation, chronic anemia, and others listed below presented to ER with complaint of lower extremity edema x several days. History obtained from patient, patient's , inpatient and outpatient chart review. Patient states last couple days legs have been feeling heavy and he feels that he has been having trouble ambulating. reports patient ambulates with walker at baseline. Denies any falls at home. states last couple days has noticed bilateral lower extremity edema seems worse and legs were firm instead of soft as usual. Patient denies any extremity pain. Patient's reports has been taking his medications as prescribed. does note last couple days patient seems to have some cough. She reports typically has intermittent coughing all of winter season but seemed a bit increased past couple days. Cough is nonproductive. Denies any known fever or chills. Patient denies any shortness of breath or chest pain. denies any noted shortness of breath. Reports patient eats frozen [employer] breakfast sandwiches daily. states patient taking Bumex once daily. Was previously prescribed twice daily but states for months has been taking once daily. reports patient difficulty sleeping at night and often gets up frequently and walks around. Denies fever/chills, diaphoresis, N/V/D/C, REINOSO, dizziness, syncope, vision changes, neck pain, noted orthopnea, palpitations, sore throat, rhinorrhea, abdominal pain, paresthesias, rashes, urinary symptoms. Echo 05/05/2017: EF: 65-70%, moderate concentric LVH, severe biatrial enlargement, moderate aortic valve sclerosis without significant stenosis, mild mitral regurgitation, mild to moderate tricuspid regurgitation Admission Exam Per Admitting Provider General: no distress, WDWN Head: normocephalic, atraumatic Eyes: conjunctiva non-injected, anicteric ENT: Hard of hearing, normal inspection external ears, nose, mucous membranes moist Neck: supple, trachea midline, non-tender Lungs: no respiratory distress on current 2 L oxygen via nasal cannula, + rales bases bilaterally, no wheezing/rhonchi CV: Irregularly irregular, rate 72, 3+ pretibial edema Abd: normal BS, soft, non-tender Ext: no cyanosis, no calf tenderness. Bilateral lower extremities 3+ pitting edema, dry skin. LLE:+ Slight erythema from below knee to foot, positive dry skin, slight warmth, no tenderness to palpation, no discharge Neuro: Alert oriented to person, place, no focal deficits noted, normal affect Skin: warm, dry Principal Diagnosis Acute on chronic diastolic heart failure Discharge Exam General Appearance:Moderately built and nourished, no apparent distress, Elderly Respiratory/Chest: Normal breath sounds, No accessory muscle use Cardiovascular: Irregularly irregular, No murmur Abdomen/GI:Soft, Non tender, Bowel sounds present Extremities/Musculoskeletal:normal inspection, 1-2+ LE edema, erythema, venous stasis changes Neurologic/Psych:AAOX3, grossly no focal neurological deficits, + decreased hearing Skin: normal color, warm Discharge Data Allergies Allergy/AdvReac Type Severity Reaction Status Date / Time No Known Allergies Allergy Unknown Verified 04/20/23 16:58 Consultations 04/20/23 16:41 ED Decision to Admit Stat 04/20/23 18:41 Consult Cardiology Routine 04/21/23 11:24 Consult Nephrology Routine Hospital Course (1) Acute on chronic diastolic (congestive) heart failure: (2) Acute hypoxic respiratory failure: (3) Leg edema: (4) Chronic kidney disease, stage IV (severe): (5) CAD (coronary artery disease): (6) PVD (peripheral vascular disease): (7) Cerebrovascular disease: (8) Chronic atrial fibrillation: (9) Anemia: (10) Recurrent Clostridioides difficile infection: Patient is an 82 yr male with H/O HTN, dyslipidemia, PVD, CAD, TIA, CKD IV, chronic atrial fibrillation, on chronic anticoagulation, chronic anemia, and others listed below presented to ER with complaint of lower extremity edema x several days. Acute on chronic diastolic heart failure Acute hypoxic respiratory failure Patient presented with lower extremity edema for several days. --CXR on admission personally reviewed; cardiomegaly with interval development of mild interstitial pulmonary edema and trace bilateral pleural effusions --BNP: 400 --ECHO: Left ventricle systolic function is normal. EF 55 to 60%. Mild concentric LVH. Moderate size septal and anteroseptal wall motion abnormality with hypokinesis to akinesis of the segments. Severe biatrial enlargement. Severe focal calcification of the noncoronary aortic valve cusp. Attic stenosis is absent. Mild mitral and tricuspid regurgitation. Estimated systolic pulmonary pressure is 50 mmHg. Dilated IVC with normal respiratory variation suggest a right atrial pressure of 8 mmHg. Patient was diuresed with IV Bumex; with improvement in bilateral lower extremity. Transitioned to oral Bumex. Pt is being discharged to home w/ hospice. Elevated troponin Mild troponin elevation Likely demand ischemia secondary to volume overload and in setting of CKD Patient denies any chest pain EKG showed A-fib, nonspecific ST changes in inferior leads CAD S/P CABG Continue metoprolol succinate, rosuvastatin, Plavix Chronic atrial fibrillation Anticoagulated on Coumadin Rate controlled with metoprolol INR within therapeutic range Continue metoprolol succinate, Coumadin Peripheral vascular disease H/O bilateral carotid endarterectomy Continue Plavix, rosuvastatin CKD IV Baseline 3.5-4 Cr at baseline Follows with Dr. Rodrigues. Patient not interested in HD at any point Monitor renal function Avoid nephrotoxic agents as able Chronic recurrent Clostridium difficile Denies any recent diarrhea Continue home PO vancomycin Chronic anemia Baseline 10-12 Hemoglobin drop likely dilutional due to volume overload s/p Venofer as per nephrology. Hb has been stable. DVT Px Coumadin. INR therapeutic. CODE STATUS DNR/DNI Patient is being discharged to home with hospice. Please note the above document was generated using voice recognition software. It may contain grammatical, syntax or spelling errors. Any formal questions or concerns about the content, text or information contained within the body of this dictation should be directly addressed to the provider for clarification Home Health Attestation I certify that this patient is under my care and that I, or a physicians payroll assistant working with me, had a face to-face encounter that meets the home health [id number] encounter requirements with this patient. The encounter with the patient was in whole, or in part, for the following medical condition, which is the primary reason for home health care (list medical condition): CHF, cellulitis I certify that, based on my findings, the following services are medically necessary home health services: My clinical findings support the need for the above services because: Daily Weights Home Safety Assessment Medication Compliance and Monitoring Effective of New Medications OT Assess ADL Status and Restore Function w ADLs PT Assessment for Endurance / Balance / Strength PT Eval for Safety and Mobility PT Eval for Safety, Gait Training, Assistive Devices PT Gait and Balance Training, Strengthening and Safety Safety Skilled Nsg Assess and Instruct on Diet Skilled Nsg Assess Pt Illness, Disease and Sx Monitoring Further, I certify that my clinical findings support that this patient is homebound (i.e. absences from home require considerable and taxing effort and are for medical reasons or confucianism services or infrequently or of short duration when for other reasons) because: Assistance of 1 Person for Ambulation/Activities Supportive Aid - Walker Transportation Assistance/Unable to Leave Home Unassisted Certification for Home Health Services: Based on the above findings, I certify that this patient is confined to the home and needs intermittent jail care, physical therapy and/or speech therapy or continues to need occupational therapy. The patient is under my care, and I have initiated the establishment of the plan of care. This patient will be followed by a physician who will periodically review the plan of care. Total Time Total Time Spent Total Time Spent (In Minutes): 45 Discharge Plan Discharge Items Patient Disposition: Hospice - Home Reason For Visit: FLUID OVERLOAD Discharge Diagnosis: Acute on chronic diastolic heart failure Activity: Resume your previous activity Non-emergency contact: Primary Care Provider Call non-emergency contact if: you have any medication questions and your symptoms worsen Follow-up/Referrals: Norman Wetzel MD [Physician] - (The Cardiology office will contact you for a follow up appointment.) Lamin Malcolm MD [Primary Care Provider] - (Date & Time 04/29/2023 3:00 PM Provider Lamin Malcolm MD [facility] ) Diet: Regular Addtl Attending Provider Instructions: You were admitted to the hospital due to heart failure. You underwent treatment by diuretics during the hospitalization. Your Bumex was increased from once a day to twice a day. Take 1 tablet in the morning and 1 in the afternoon. Please follow-up with your primary care doctor as scheduled. Pending Studies at Discharge: No Stand-Alone Forms: [facility] Medications and DC Order Prescriptions: Continued potassium chloride [Klor-Con M20] 20 mEq tablet,ER particles/crystals 20 meq PO DAILY Qty: 90 3RF Rx Instructions: TAKE 1 TABLET DAILY metoprolol succinate 25 mg tablet extended release 24 hr 25 mg PO BID rosuvastatin [Crestor] 10 mg tablet 10 mg PO HS Qty: 30 5RF multivitamin Tablet 1 tab PO DAILY trazodone 50 mg tablet 50 mg PO HS clopidogrel 75 mg tablet 75 mg PO QAM vancomycin 125 mg capsule 125 mg PO QAM warfarin 2 mg tablet 4 mg PO 2XD Rx Instructions: mon & fri omeprazole 20 mg capsule,delayed release(DR/EC) 20 mg PO QAM Lactobacillus acidoph-L.bulgar 1 million cell Tablet 1 tab PO TIDM warfarin 2 mg Tablet 2 mg PO .5XSWEEK Rx Instructions: SUN, TU, TUE, , SAT levothyroxine 25 mcg Tablet 25 mcg PO DAILY bumetanide 1 mg tablet 1 mg PO BID Qty: 60 0RF Discharge Orders: Discharge Order (Routine); Ordered 04/28/23 Ordered By: Jluis Martin Admission Data Admit Date/Time: 04/20/23 17:14 Attending Provider: Jluis Martin Admit Provider: Pavithra Mcknight Primary Care Provider: Lamin Malcolm Other Providers: Norman Wetzel; Pavithra Mcknight; Ronny Rodrigues; [facility]
== END 2023-04-28 14:48 | disposition hospice, home (50) | DRG 291 ==
LOC: ED 15:10 → SUATTDRO 17:14 → EDINP 17:14 → 2W 18:41